=== PATIENT | female | born 1945 | race Caucasian/White ===

== ENCOUNTER 2016-08-24 19:42 | Observation (INO) | payer MEDICARE, MEDICAID ==
[2016-08-24] MEDS ORDERED: NS 0.9% 1000 ML* 1,000 ML IV ONE ×2 (22:38→23:32)
[2016-08-24] MEDS ORDERED: Ondansetron INJ* 2 MG/ML VIAL IV ONE (22:38)
[2016-08-24 22:42] LABS: Hematocrit 46 % (35-47); Hemoglobin 15.2 g/dl (12.0-16.0); Mean Corpuscular HGB Conc 33 g/dl (31-36); Mean Corpuscular Hemoglobin 30 pg (27-31); Mean Corpuscular Volume 92 fL (80-97); Mean Platelet Volume 8 um3 (7.4-10.4); Red Blood Count 5.04 10^6/ul (4.0-5.4); Red Cell Distribution Width 13 % (10.5-15)
[2016-08-24 22:57] LABS: ALT 29 U/L (7-52); AST 37 U/L (13-39); Albumin 3.6 g/dL (3.2-5.2); Alkaline Phosphatase 119 U/L (34-104); Anion Gap 8 mmol/L (2-11); BUN/Creatinine Ratio 16.9 (8-20); Blood Urea Nitrogen 13 mg/dL (6-24); C Reactive Protein < 1.00 mg/L (< 5.00); CO2 Carbon Dioxide 28 mmol/L (22-32); Calcium 9.8 mg/dL (8.6-10.3); Chloride 103 mmol/L (101-111); EGFR African American 94.5 (>60); EGFR Non-African American 73.5 (>60); Globulin 2.6 g/dL (2-4); Glucose 91 mg/dL (70-100); Lipase 37 U/L (11.0-82.0); Sodium 139 mmol/L (133-145); Total Protein 6.2 g/dL (6.4-8.9)
[2016-08-24] MEDS ORDERED: fentaNYL* 50 MCG/ML 2 ML VIAL (100 MCG VIAL) IV SLOW PU ONE (23:32)
[2016-08-25] MEDS ORDERED: fentaNYL* 50 MCG/ML 2 ML VIAL (100 MCG VIAL) IV SLOW PU ONE ×2 (00:08→03:50)
--- NOTE | 2016-08-25 00:12 | ED ---
Jacqueline Sandoval Michael, scribed for Jacquelin Tamayo MD on 08/24/16 at 2251 . GI/ HPI - HPI Summary HPI Summary: 71 y/o female was BIBA to the ED presenting with diarrhea three days ago that has progressively worsened. The pt reports bright red blood in her stool that was only present today. She also c/o vomiting and nausea. She had 4 vomiting episodes today, and there is no haematemesis. The pt has similar sx one year ago and was admitted to [facility] [place], but she cannot recall her dx. She denies chest pain , dysuria, and SOB. The PMHx is significant for colitis, HTN, ID, COPD, RA, and ELIZABETH. The FHx is significant for cancer, ID, and TIA. - History of Current Complaint Chief Complaint: EDNauseaVomitDiarrh Time Seen by Provider: 08/24/16 22:14 Stated Complaint: GENERAL ILLNESS Hx Obtained From: Patient, Medical Records Onset/Duration: Started Days Ago, Still Present Timing: Intermittent Severity: Moderate Current Severity: Moderate Pain Intensity: 0 Associated Signs and Symptoms: Positive: Nausea, Vomiting, Bright Red Blood w/ Stool, Diarrhea, Other: - SOB. Negative: Hematemesis, Dysuria, Chest Pain - Additional Pertinent History Primary Care Physician: [id number] - Allergy/Home Medications Allergies/Adverse Reactions: Allergies Allergy/AdvReac Type Severity Reaction Status Date / Time Cephalosporins Allergy Abdominal Verified 05/24/16 21:09 Pain PMH/Surg Hx/FS Hx/Imm Hx Endocrine/Hematology History: Reports: Hx Anticoagulant Therapy Denies: Hx Diabetes, Hx Systemic Lupus Erythematosus Cardiovascular History: Reports: Hx Angina, Hx Angioplasty, Hx Coronary Artery Disease, Hx Hypertension, Hx Myocardial Infarction, Other Cardiovascular Problems/Disorders - TAKES BABY ASPRIN Denies: Hx Congestive Heart Failure, Hx Hypercholesterolemia, Hx Valvular Heart Disease Respiratory History: Reports: Hx Chronic Obstructive Pulmonary Disease (COPD) Denies: Hx Asthma, Other Respiratory Problems/Disorders GI History: Reports: Hx Gall Bladder Disease - cholecystectomy, Hx Gastroesophageal Reflux Disease, Other GI Disorders - colitis History: Reports: Hx Kidney Infection, Hx Kidney Stones Denies: Hx Dialysis, Hx Renal Disease Musculoskeletal History: Reports: Hx Arthritis, Hx Rheumatoid Arthritis, Hx Back Problems, Hx Fibromyalgia, Hx Osteoporosis Sensory History: Reports: Hx Cataracts - surgery, Hx Contacts or Glasses - for reading Opthamlomology History: Reports: Hx Cataracts - surgery, Hx Contacts or Glasses - for reading Neurological History: Reports: Hx Migraine Psychiatric History: Reports: Hx Anxiety, Hx Depression - Surgical History Surgery Procedure, Year, and Place: Cardiac stent; right hand surgery; left foot surgery; neck surgery, cholecystectomy, hysterectomy Hx Anesthesia Reactions: No Infectious Disease History: Yes Infectious Disease History: Reports: Hx of Known/Suspected MRSA Denies: Traveled Outside the US in Last 30 Days - Family History Known Family History: Positive: Other - ID. cancer. TIA - Social History Occupation: Retired Lives: Alone Alcohol Use: None Substance Use Type: Reports: None Smoking Status (MU): Former Smoker Type: Cigarettes Amount Used/How Often: 1 PPD Length of Time of Smoking/Using Tobacco: 48 years Have You Smoked in the Last Year: No Review of Systems Negative: Fever Negative: Chest Pain Negative: Shortness Of Breath Positive: Vomiting, Diarrhea, Nausea Negative: dysuria All Other Systems Reviewed And Are Negative: Yes Physical Exam Triage Information Reviewed: Yes Vital Signs On Initial Exam: Initial Vitals Temp Pulse Resp BP Pulse Ox 98.3 F 97 20 146/109 97 08/24/16 19:48 08/24/16 19:48 08/24/16 19:48 08/24/16 19:48 08/24/16 19:48 Vital Signs Reviewed: Yes Appearance: Positive: Well-Appearing, No Pain Distress Skin: Positive: Warm, Skin Color Reflects Adequate Perfusion, Dry Eyes: Positive: EOMI, JULIANNE ENT: Positive: Pharynx normal, TMs normal Neck: Positive: Supple, Nontender Respiratory/Lung Sounds: Positive: Clear to Auscultation, Breath Sounds Present. Negative: Rales, Rhonchi, Wheezes Cardiovascular: Positive: RRR, Other - no gallop. Negative: Murmur, Rub Abdomen Description: Positive: Nontender, Soft, Other: - no rebound. Negative: Distended, Guarding Musculoskeletal: Positive: Strength/ROM Intact Neurological: Positive: Sensory/Motor Intact, Alert, Oriented to Person Place, Time, CN Intact II-III Psychiatric: Positive: Affect/Mood Appropriate Diagnostics - Vital Signs Vital Signs Temp Pulse Resp BP Pulse Ox 08/24/16 19:48 98.3 F 97 20 146/109 97 - Laboratory Lab Results: Lab Results 08/24/16 08/24/16 Range/Units 22:30 22:30 WBC 6.0 (3.5-10.8) 10^3/ul RBC 5.04 (4.0-5.4) 10^6/ul Hgb 15.2 (12.0-16.0) g/dl Hct 46 (35-47) % MCV 92 (80-97) fL MCH 30 (27-31) pg MCHC 33 (31-36) g/dl RDW 13 (10.5-15) % Plt Count 162 (150-450) 10^3/ul MPV 8 (7.4-10.4) um3 Neut % (Auto) 59.8 (38-83) % Lymph % (Auto) 22.7 L (25-47) % [place] % (Auto) 14.8 H (1-9) % Eos % (Auto) 2.1 (0-6) % Baso % (Auto) 0.6 (0-2) % Absolute Neuts (auto) 3.6 (1.5-7.7) 10^3/ul Absolute Lymphs (auto) 1.4 (1.0-4.8) 10^3/ul Absolute Monos (auto) 0.9 H (0-0.8) 10^3/ul Absolute Eos (auto) 0.1 (0-0.6) 10^3/ul Absolute Basos (auto) 0 (0-0.2) 10^3/ul Absolute Nucleated RBC 0.01 10^3/ul Nucleated RBC % 0.2 Sodium 139 (133-145) mmol/L Potassium 4.0 (3.5-5.0) mmol/L Chloride 103 (101-111) mmol/L Carbon Dioxide 28 (22-32) mmol/L Anion Gap 8 (2-11) mmol/L BUN 13 (6-24) mg/dL Creatinine 0.77 (0.51-0.95) mg/dL Est GFR ( Amer) 94.5 (>60) Est GFR (Non-Af Amer) 73.5 (>60) BUN/Creatinine Ratio 16.9 (8-20) Glucose 91 (70-100) mg/dL Calcium 9.8 (8.6-10.3) mg/dL Total Bilirubin 0.90 (0.2-1.0) mg/dL AST 37 (13-39) U/L ALT 29 (7-52) U/L Alkaline Phosphatase 119 H (34-104) U/L C-Reactive Protein < 1.00 (< 5.00) mg/L Total Protein 6.2 L (6.4-8.9) g/dL Albumin 3.6 (3.2-5.2) g/dL Globulin 2.6 (2-4) g/dL Albumin/Globulin Ratio 1.4 (1-3) Lipase 37 (11.0-82.0) U/L Result Diagrams: 08/24/16 22:30 08/24/16 22:30 Lab Statement: Any lab studies that have been ordered have been reviewed, and results considered in the medical decision making process. GIGU Course/Dx - Course Course Of Treatment: 71 y/o female c/o diarrhea that started 3 days ago. Today she had bright red blood in her stool. She also c/o vomiting with no haematemesis. She denies CP, SOB, and dysuria. scant blood on rectal exam. pt getting a second dose of pain meds and fluids now. Labs and vitals look good. After fluids and pain meds if able to ambulate and tolerate po's pt can go home. Pt to be signed out to Dr. Travis - Diagnoses Provider Diagnoses: Vomiting and diarrhea Discharge - Discharge Plan Condition: Stable Disposition: OTHER Discharge Disposition Comment: final disposition to be made by Dr. Travis The documentation as recorded by the Jacqueline erazo Michael accurately reflects the service I personally performed and the decisions made by me, Jacquelin Tamayo MD.
[2016-08-25] MEDS ORDERED: PROCHLORPERAZINE INJ 5 MG/ML 2 ML VIAL IV PRN ×2 (01:06→05:11)
--- NOTE | 2016-08-25 03:35 | HP ---
H&P (Free Text) History and Physical: PCP: Samina Fuller MD Date/Time of Evaluation: 08/25/2016 0415 CC: N/V HPI: Mrs Parks is a 71YO female reporting ~1week of increased fatigue and poor appetite worsening 3 days ago with the onset of diarrhea and culminating today with the onset of N/V which has not been adequately controlled after 2doses of IV anti-emetics. She admits to some subjective F/C, but no chest pain, SOB, palpitations, sweats, cough, congestion, B/U/F of urine, or other problems. She does admit to a single episode of bright red blood per rectum after arrived to ED, but none prior or since. There was no blood or coffee ground material in her emesis. Evaluation is essentially unremarkable. ECG is benign. Vitals and labs are stable. She is on chronic narcotics and was give IV fentanyl on the thought she could be experiencing withdrawal, but did not experience any improvement. PMedHx CAD/CO/stent PAOD COPD HTN HLD rheumatoid arthritis hypothyroidism GERD Allergies Cephalosporins Allergy (Verified 05/24/16 21:09) Abdominal Pain Ambulatory Orders Patient unaware of meds/dosages, will need reconciling via PCP/Rx in AM. PSurgHx OU cataract extractions C-spine surgery cardiac stent cholecystectomy bowel resection hysterectomy SocHx: former smoker, no alcohol or recreational drugs; live in independent apartment, has aide assistance daily; full code status FamHx: reviewed, non-contributory ROS: as above, otherwise reviewed and all were negative Constitutional: NAD, normally developed, overweight elderly white female vitals: Vital Signs Temp 36.8 C 08/24/16 19:48 Pulse 90 08/25/16 04:20 Resp 18 08/25/16 04:20 BP 145/72 08/25/16 04:20 Pulse Ox 98 08/25/16 04:20 Intake & Output 08/24/16 08/24/16 08/25/16 11:59 23:59 11:59 Intake Total 1000 1000 Balance 1000 1000 Weight 145 lb Intake: IV Fluids 1000 1000 HEENM: atraumatic; sclera/conjunctiva: non-icteric/clear; hearing: mildly decreased; oropharynx: clear, mucosa moist Neck: soft tissue: non-tender; thyroid: normal Pulmonary: clear to auscultation bilaterally, good aeration, no accessory muscle use CV: RR/RR, normal S1S2, no carotid bruit, no jugular venous distention, 1+ B DP/ PT, trace to 1+ B ankle edema Abdominal: soft, non-distended, non-tender, no rebound/guarding/rigidity, normoactive bowel sounds, no hepatosplenomegaly or masses, no costovertebral angle tenderness Musculoskeletal: general: grossly intact Integumental: normal appearance and texture Psychiatric orientation: AA&O to PPS affect: calm mood: good eye contact: fair content: mostly reliable responses: timely insight: fair to good Testing: Lab Results 08/24/16 08/24/16 Range/Units 22:30 22:30 WBC 6.0 (3.5-10.8) 10^3/ul RBC 5.04 (4.0-5.4) 10^6/ul Hgb 15.2 (12.0-16.0) g/dl Hct 46 (35-47) % MCV 92 (80-97) fL MCH 30 (27-31) pg MCHC 33 (31-36) g/dl RDW 13 (10.5-15) % Plt Count 162 (150-450) 10^3/ul MPV 8 (7.4-10.4) um3 Neut % (Auto) 59.8 (38-83) % Lymph % (Auto) 22.7 L (25-47) % [place] % (Auto) 14.8 H (1-9) % Eos % (Auto) 2.1 (0-6) % Baso % (Auto) 0.6 (0-2) % Absolute Neuts (auto) 3.6 (1.5-7.7) 10^3/ul Absolute Lymphs (auto) 1.4 (1.0-4.8) 10^3/ul Absolute Monos (auto) 0.9 H (0-0.8) 10^3/ul Absolute Eos (auto) 0.1 (0-0.6) 10^3/ul Absolute Basos (auto) 0 (0-0.2) 10^3/ul Absolute Nucleated RBC 0.01 10^3/ul Nucleated RBC % 0.2 Sodium 139 (133-145) mmol/L Potassium 4.0 (3.5-5.0) mmol/L Chloride 103 (101-111) mmol/L Carbon Dioxide 28 (22-32) mmol/L Anion Gap 8 (2-11) mmol/L BUN 13 (6-24) mg/dL Creatinine 0.77 (0.51-0.95) mg/dL Est GFR ( Amer) 94.5 (>60) Est GFR (Non-Af Amer) 73.5 (>60) BUN/Creatinine Ratio 16.9 (8-20) Glucose 91 (70-100) mg/dL Calcium 9.8 (8.6-10.3) mg/dL Total Bilirubin 0.90 (0.2-1.0) mg/dL AST 37 (13-39) U/L ALT 29 (7-52) U/L Alkaline Phosphatase 119 H (34-104) U/L Troponin I 0.02 (<0.04) ng/mL C-Reactive Protein < 1.00 (< 5.00) mg/L Total Protein 6.2 L (6.4-8.9) g/dL Albumin 3.6 (3.2-5.2) g/dL Globulin 2.6 (2-4) g/dL Albumin/Globulin Ratio 1.4 (1-3) Lipase 37 (11.0-82.0) U/L ECG, personally reviewed: NSR rate 88, inferior Q-waves, no ischemia Impression: 71F presenting with intractable N/V/D DIAGNOSIS & PLAN Primary intractable N/V/D 2nd suspect acute viral gastroenteritis : IVFs : anti-emetics : PT evaluation : check UA : supportive care Secondary CAD/CO/stent : 81mg aspirin daily PAOD/HLD : heart healthy diet COPD : albuterol nebs : mometasone/formoterol : tiotropium : incentive spirometry HTN : continue outpatient regimen once reconciled rheumatoid arthritis : pain control hypothyroidism : continue replacement therapy once reconciled GERD : omeprazole Admission Rational: observation DVTp: heparin SQ & SCDs Code Status: full HCP: daughterMackenzie
[2016-08-25 04:36] LABS: Troponin I 0.02 ng/mL (<0.04)
[2016-08-25] MEDS ORDERED: Ondansetron INJ* 2 MG/ML VIAL IV PRN (05:11)
[2016-08-25] MEDS ORDERED: Acetaminophen TAB* 325 MG PO PRN (05:11)
[2016-08-25] MEDS ORDERED: Albuterol 2.5 MG/3 ML NEB.SOL* (0.083%) INH PRN (05:11)
[2016-08-25] MEDS ORDERED: Melatonin (NF) 3 MG TAB PO PRN (05:11)
[2016-08-25] MEDS ORDERED: NS 0.9% 1000 ML* 1,000 ML IV SCH (05:15)
[2016-08-25 05:59] LABS: TSH (Thyroid Stimulating Horm) 0.41 mcIU/mL (0.34-5.60)
[2016-08-25] MEDS ORDERED: Omeprazole CAP* 20 MG PO SCH (06:00)
--- NOTE | 2016-08-25 06:40 | ED ---
I, Jaun Murray, louisaibed for Teodoro Travis MD on 08/25/16 at 0105 . Progress - Progress Note Progress Note: Cinthya Parks is a 71 yo female presenting to [facility] with decreased appetite, nasuea, and vomiting. Upon evaluation, Pt is unable to tolerate fluids. Re-Evaluation - Re-Evaluation First Eval Re-Evaluation Time: 01:04 Change: Worse Comment: Pt is unable to tolerate fluids Course/Dx - Course Course Of Treatment: 71 y/o female c/o diarrhea that started 3 days ago. Today she had bright red blood in her stool. She also c/o vomiting with no haematemesis. She denies CP, SOB, and dysuria. scant blood on rectal exam. pt getting a second dose of pain meds and fluids now. Labs and vitals look good. After fluids and pain meds if able to ambulate and tolerate po's pt can go home. Pt to be signed out to Dr. Travis - Diagnoses Provider Diagnoses: Vomiting and diarrhea - Provider Notifications Discussed Care Of Patient With: 0103 - Dr. Price (hospitalist) - Discussed care of Pt. Recommends compazine administration, and then further evaluation. 0330 - Dr. Price (hospitalist) - discussed Pt condition, will admit Pt. Instructed by Provider To: Admit As Inpatient The documentation as recorded by the louisaibarlin luna Timothy accurately reflects the service I personally performed and the decisions made by me, Teodoro Travis MD.
[2016-08-25 08:24] LABS: Hematocrit 42 % (35-47); Mean Corpuscular HGB Conc 33 g/dl (31-36); Mean Corpuscular Hemoglobin 31 pg (27-31); Mean Corpuscular Volume 93 fL (80-97); Mean Platelet Volume 8 um3 (7.4-10.4); Red Blood Count 4.55 10^6/ul (4.0-5.4); Red Cell Distribution Width 13 % (10.5-15); White Blood Count 4.4 10^3/ul (3.5-10.8)
[2016-08-25 08:40] LABS: BUN/Creatinine Ratio 15.5 (8-20); Calcium 8.4 mg/dL (8.6-10.3); EGFR African American 103.8 (>60); EGFR Non-African American 80.7 (>60); Potassium 3.5 mmol/L (3.5-5.0)
[2016-08-25] MEDS ORDERED: Tiotropium CAP.INH* CAP.INH/18 MCG (USE ORDER SET !) INH SCH (09:00)
[2016-08-25] MEDS ORDERED: Spiriva Inhaler DEVICE* 1 EACH DEVICE INH ONE (09:00)
[2016-08-25] MEDS ORDERED: Mometasone/Formoter 200/5 MDI INH SCH (09:00)
[2016-08-25] MEDS: oxyCODONE TAB* 5 MG TAB PO PRN ×2 (09:38→14:28)
[2016-08-25 10:25] LABS: Urine Bacteria 1+ (Absent); Urine Bilirubin Negative (Negative); Urine Glucose Negative (Negative); Urine Nitrite Positive (Negative)
[2016-08-25 12:02] VITALS: BP 143/71
--- NOTE | 2016-08-25 23:26 | DS ---
DISCHARGE SUMMARY: DATE OF ADMISSION: 08/25/16 DATE OF DISCHARGE: 08/25/16 PRIMARY CARE PROVIDER: Dr. Fuller. PRIMARY DIAGNOSIS: Gastroenteritis. SECONDARY DIAGNOSES: 1. Coronary artery disease. 2. Chronic obstructive pulmonary disease. 3. Hypertension. 4. Hyperlipidemia. 5. Rheumatoid arthritis. 6. Hypothyroidism. 7. Gastroesophageal reflux disease. MEDICATIONS ON DISCHARGE: Unchanged from that on admission. 1. Magnesium oxide 800 mg at bedtime. 2. Synthroid 75 mcg daily. 3. Neurontin 300 mg twice daily. 4. Folic acid 1 tablet daily. 5. Bupropion XL 300 mg daily. 6. Lipitor 20 mg daily. 7. Aspirin 81 mg daily. 8. Acetaminophen 650 mg every 4 hours as needed for pain or fever. 9. Actemra 162 mcg twice monthly. 10. Silvadene 1 application daily as needed. 11. Potassium chloride 20 mEq daily. 12. Prilosec 20 mg daily. 13. Metoprolol tartrate 25 mg twice daily. 14. Oxycodone 5 mg every 4 to 6 hours as needed for pain. 15. Fentanyl patch 37.5 mcg as needed. 16. Prednisone 5 mg daily. HISTORY OF PRESENT ILLNESS AND HOSPITAL COURSE: A 71-year-old female who presented to the hospital with increasing fatigue associated with increasing diarrhea as well as nausea and vomiting, thought to represent gastroenteritis. She was admitted to the hospital and received IV hydration as well as antiemetics with good effect. The following day, her diarrhea had completely resolved and she had no longer felt nauseous nor had any additional vomiting. She tolerated her breakfast and lunch without distress. She felt comfortable returning home on the day of discharge. There were no complications during the patient's hospital stay. At followup, please; 1. Evaluate for continued resolution of symptoms. 2. No other specific labs or vitals that need followup. Reasons to return to the hospital including but not limited to worsening of symptoms, chest pain, shortness of breath, nausea, vomiting, lightheadedness, loss of consciousness, near loss of consciousness, fever, chills, night sweats, diarrhea, inability to obtain or tolerate her medications were discussed with the patient. She acknowledged understanding. TIME SPENT: Greater than 30 minutes was spent on discharge of this patient with greater than half the time spent [id number] with the patient. CC: Dr. Fuller* [id number]/[facility] #: [id number] PHUC
[2016-08-26] MEDS ORDERED: Heparin VIAL(*) 5000 UNITS/ML VIAL (FIVE THOUSAND) SUBCUT SCH (06:00)
== END 2016-08-25 15:13 | disposition home or self-care (01) ==
LOC: ED 19:42 → MEDTELE 08-25 05:09
PROVIDERS: ADMIT Hospitalist; ATTEND Internal Medicine
DX: K52.9 Noninfective gastroenteritis and colitis, unspecified (principal); I25.10 Atherosclerotic heart disease of native coronary artery without angina pectoris; J44.9 Chronic obstructive pulmonary disease, unspecified; I10 Essential (primary) hypertension; E78.5 Hyperlipidemia, unspecified; M06.9 Rheumatoid arthritis, unspecified; E03.9 Hypothyroidism, unspecified; K21.9 Gastro-esophageal reflux disease without esophagitis; Z79.899 Other long term (current) drug therapy; I25.2 Old myocardial infarction; Z95.5 Presence of coronary angioplasty implant and graft; Z88.1 Allergy status to other antibiotic agents; Z87.891 Personal history of nicotine dependence
CPT/HCPCS: 36415; 80048; 80053; 81003; 81015; 83690; 84443; 84484; 85025; 85027; 86140; 87077; 87086; 87186; 93005; 94640; 96361; 96374; 96375; 96376; 99283; A9270-GY; G8981-GP-CM; G8982-GP-CJ; G8983-GP-CM; J0780; J2405; J3010

== ENCOUNTER 2017-02-05 12:29 | Day surgery (SDC) | payer MEDICARE, MEDICAID ==
[~2017-02-05 12:29] MED LIST: Buffered Lidocaine 0.9% SYRIN* 5 ML/SYR SYRINGE INTRADERM ONE; Famotidine IV* 10 MG/ML 2 ML (20 mg) IV ONE; Morphine INJ* 2 MG/ML 1 ML SYRINGE IV PRN; PROCHLORPERAZINE INJ 5 MG/ML 2 ML VIAL IV PRN; oxyCODONE/Acetamin 5/325 MG* TAB PO PRN
[2017-02-05] MEDS ORDERED: Buffered Lidocaine 0.9% SYRIN* 5 ML/SYR SYRINGE ONE (12:37)
[2017-02-05] MEDS ORDERED: Famotidine IV* 10 MG/ML 2 ML (20 mg) ONE (12:37)
[2017-02-05] MEDS ORDERED: fentaNYL* 50 MCG/ML 2 ML VIAL (100 MCG VIAL) ONE ×2 (12:40→14:45)
[2017-02-05] MEDS ORDERED: KETAMINE HCL* 50 MG/ML 10 ML VIAL ONE (12:40)
[2017-02-05] MEDS ORDERED: Midazolam* 1 MG/ML 5 ML VIAL (5 MG) ONE (12:41)
[2017-02-05] MEDS ORDERED: Bupivacaine 0.5% W/EPI SDV* 10 ML VIAL INJ ONE (13:34)
[2017-02-05] MEDS ORDERED: Lidocaine 1% INJ* 10 MG/ML 30 ML SDV ONE (13:34)
[2017-02-05] MEDS ORDERED: Metoprolol Tartrate IV* 1 MG/ML 5 ML VIAL ONE (13:36)
[2017-02-05] MEDS ORDERED: Propofol* 10 MG/ML 20 ML BTL IV PUSH ONE (13:54)
[2017-02-05] MEDS ORDERED: Lidocaine 2% PF * 5 ML VIAL ONE (13:54)
--- NOTE | 2017-02-05 14:04 | SURGPN ---
Brief Operative Note - Surgery Procedures: Procedures EXCISION OF ASCENDING COLON, ENDO, DIAGN (05/18/15) FLUOROSCOPY OF MULT COR ART USING L OSM CONTRAST (12/11/15) MEASURE OF CARDIAC SAMPL & PRESSURE, L HEART, PERC APPROACH (12/11/15) MEASUREMENT OF ARTERIAL FLOW, CORONARY, PERC APPROACH (12/11/15) 02/05/17 Op Note Pre-op dx: non-healing wound of the left buttock Post-op dx: same Procedure: excision of left buttock wound surgeon: Noel Asst: none Anesth: local--MAC EBL: 5cc SCDs on during surgery abx: not indicated Complications: none Pt. tolerated procedure well and was transferred to in a stable condition. CLFoster
[2017-02-05] MEDS ORDERED: oxyCODONE/Acetamin 5/325 MG* TAB ONE (14:46)
[2017-02-05] MEDS: fentaNYL* 50 MCG/ML 2 ML VIAL (100 MCG VIAL) IV PRN ×2 (14:49→14:59)
[2017-02-05 15:13] VITALS: BP 172/75
--- NOTE | 2017-02-06 11:20 | OP ---
CC: Fernando Fuller DO; Maxx Hughes * OPERATIVE REPORT: DATE OF PROCEDURE: 02/05/17 - [facility] DATE OF : 41 SURGEON: Mel Cohen MD PLASTIC EYE TECHNICIAN: None. ANESTHESIOLOGIST: Abdiaziz Posadas MD ANESTHESIA: MAC PRE-OP DIAGNOSIS: Open nonhealing wound of the left buttock. POST-OP DIAGNOSIS: Open nonhealing wound of the left buttock. PROCEDURE: Excision of nonhealing wound of the left buttock. INDICATIONS: The patient is a 71-year-old woman with a history of a nonhealing wound of the left buttock for many months. Examination at the wound center demonstrated that the wound had epibolized and was unlikely to heal without excision. DESCRIPTION OF PROCEDURE: She was therefore prepared for surgery, brought to the operating room. She was placed on the OR table in supine position and given IV sedation. She was positioned on the side with the left side up. The left buttock was prepped and draped in usual sterile fashion. After infiltrating with local anesthetic, an elliptical incision encompassing the buttock wound and some irregular scar tissue medially was done and subcutaneous tissues divided with electrocautery to excise this area. The ellipse of skin was handed off and subcutaneous tissue was reapproximated with 3-0 Polysorb and then the skin was approximated with 3-0 Surgipro in a continuous horizontal mattress stitch. A dry sterile dressing was applied. All sponge and instrument counts were correct, the patient tolerated the procedure well and was transferred to Recovery in stable condition. [id number]/[facility] #: [id number] MTDD
== END 2017-02-05 15:15 | disposition home or self-care (01) ==
LOC: OR 12:29
PROVIDERS: ATTEND Surgery
DX: S31.829A Unspecified open wound of left buttock, initial encounter (principal); X58.XXXA Exposure to other specified factors, initial encounter; Y92.9 Unspecified place or not applicable; Z87.891 Personal history of nicotine dependence; Z79.82 Long term (current) use of aspirin; Z16.20 Resistance to unspecified antibiotic; I25.10 Atherosclerotic heart disease of native coronary artery without angina pectoris; Z95.5 Presence of coronary angioplasty implant and graft; Z79.52 Long term (current) use of systemic steroids; Z79.891 Long term (current) use of opiate analgesic; L57.0 Actinic keratosis; Z88.1 Allergy status to other antibiotic agents; I25.2 Old myocardial infarction; M06.9 Rheumatoid arthritis, unspecified
CPT/HCPCS: 88305; A9270-GY; J2001; J2250; J2704; J3010

== ENCOUNTER 2017-02-08 10:35 | Emergency (ER) | payer MEDICARE, MEDICAID ==
--- NOTE | 2017-02-08 12:24 | ED ---
Skin Complaint - HPI Summary HPI Summary: Patient had a chronic wound on her buttock excised with Dr. Cohen three days ago and the running stitch has come undone. She has kept the wound clean, dry and dressed with gauze. She denies fever, chills, drainage or increased redness or pain. - History of Current Complaint Chief Complaint: EDLacSutureRecheck Time Seen by Provider: 02/08/17 10:42 Stated Complaint: SUTURES CAME OUT Hx Obtained From: Patient, Family/Acting Section Chief Onset/Duration: Started Hours Ago Skin Exposure Onset/Duration: Hours Ago Timing: Constant Onset Severity: Moderate Current Severity: Moderate Pain Intensity: 5 Skin Location: Other: - left buttock Character: Painful - mild chronic Aggravating Symptom(s): Touch Alleviating Symptom(s): Nothing Associated Signs & Symptoms: Tenderness Related History: Other: - surgical excision - Additional Pertinent History Primary Care Physician: [id number] - Allergy/Home Medications Allergies/Adverse Reactions: Allergies Allergy/AdvReac Type Severity Reaction Status Date / Time Cephalosporins Allergy Abdominal Verified 02/05/17 13:03 Pain PMH/Surg Hx/FS Hx/Imm Hx Endocrine/Hematology History: Reports: Hx Anticoagulant Therapy Denies: Hx Diabetes, Hx Systemic Lupus Erythematosus Cardiovascular History: Reports: Hx Angina, Hx Angioplasty, Hx Coronary Artery Disease - STENT, Hx Hypertension - ON MEDICATION FOR, Hx Myocardial Infarction, Other Cardiovascular Problems/Disorders - DR. DUNLAP Denies: Hx Congestive Heart Failure, Hx Hypercholesterolemia, Hx Pacemaker/ ICD, Hx Valvular Heart Disease Respiratory History: Reports: Hx Chronic Obstructive Pulmonary Disease (COPD), Other Respiratory Problems/Disorders - OCCASIONALLY DIFFICULTY BREATHING- PRN PROVENTIL- STATES HELPS Denies: Hx Asthma GI History: Reports: Hx Gall Bladder Disease - cholecystectomy, Hx Gastroesophageal Reflux Disease - ON MEDICATION FOR, Other GI Disorders - colitis History: Reports: Hx Kidney Infection, Hx Kidney Stones Denies: Hx Dialysis, Hx Renal Disease Musculoskeletal History: Reports: Hx Arthritis, Hx Rheumatoid Arthritis, Hx Back Problems, Hx Fibromyalgia, Hx Osteoporosis Sensory History: Reports: Hx Cataracts - surgery, Hx Contacts or Glasses - for reading Denies: Hx Hearing Aid Opthamlomology History: Reports: Hx Cataracts - surgery, Hx Contacts or Glasses - for reading Neurological History: Reports: Hx Migraine - RARELY Psychiatric History: Reports: Hx Anxiety - ON MEDICATION FOR, Hx Depression - ON MEDICATION FOR - Surgical History Surgery Procedure, Year, and Place: Cardiac stent; right hand surgery; left foot surgery; neck surgery, cholecystectomy, hysterectomy Hx Anesthesia Reactions: No Infectious Disease History: No Infectious Disease History: Reports: Hx of Known/Suspected MRSA Denies: Traveled Outside the [place] in Last 30 Days - Family History Known Family History: Positive: Other - [place]. cancer. TIA - Social History Occupation: Retired Lives: Alone Alcohol Use: None Substance Use Type: Reports: None Smoking Status (MU): Former Smoker Type: Cigarettes Amount Used/How Often: 1 PPD X 45 YEARS Length of Time of Smoking/Using Tobacco: 48 years Have You Smoked in the Last Year: No Review of Systems Negative: Fever, Chills Positive: Other - healing 3x3cm wound left buttock with untied suture All Other Systems Reviewed And Are Negative: Yes Physical Exam Triage Information Reviewed: Yes Vital Signs On Initial Exam: Initial Vitals Temp Pulse Resp BP Pulse Ox 98.3 F 73 16 148/56 97 02/08/17 10:37 02/08/17 10:37 02/08/17 10:37 02/08/17 10:37 02/08/17 10:37 Vital Signs Reviewed: Yes Appearance: Positive: Well-Appearing, No Pain Distress, Well-Nourished Skin: Positive: Warm, Skin Color Reflects Adequate Perfusion, Dry, Tender - 3x3cm wound left buttock with untied suture, mildly maloderous, Soft Head/Face: Positive: Normal Head/Face Inspection Eyes: Positive: EOMI, JULIANNE, Conjunctiva Clear ENT: Positive: Hearing grossly normal Respiratory/Lung Sounds: Positive: Breath Sounds Present Cardiovascular: Positive: RRR Abdomen Description: Positive: Nontender Musculoskeletal: Negative: Edema Left, Edema Right Neurological: Positive: Sensory/Motor Intact, Alert, Oriented to Person Place, Time, [place] Bundle Intact Distally, Unable to Assess Gait Psychiatric: Positive: Affect/Mood Appropriate AVPU Assessment: Alert - [place] Coma Scale Coma Scale Total: 15 Procedures - Laceration/Wound Repair 1 Length, Depth and Shape: 3 cm long, 2 cm wide, 2 cm deep Diagnostics - Vital Signs Vital Signs Temp Pulse Resp BP Pulse Ox 02/08/17 10:54 98.3 F 73 16 148/56 97 02/08/17 10:37 98.3 F 73 16 148/56 97 - Laboratory Lab Statement: Any lab studies that have been ordered have been reviewed, and results considered in the medical decision making process. Course/Dx - Course Course Of Treatment: Patient's case was discussed with Dr. Morton and he evaluated the patient in the ED. He recommended leaving the wound open with triple antibiotic and gauze packing with close follow-up in two days with Dr. Cohen at the wound clinic. This appointment is scheduled and patient will comply. - Differential Diagnoses - Skin Complaint Differential Diagnoses: Abscess, Allergic Reaction, Cellulitis, Contact Dermatitis, Local Allergic Reaction, MRSA, Urticaria - Diagnoses Provider Diagnoses: Wound dehiscence, external operation - Physician Notifications Discussed Care Of Patient With: Dr. Cohen and Dr. Morton, general surgery Instructed by Provider To: Have Pt Call For Appt. Discharge - Discharge Plan Condition: Stable Disposition: HOME Patient Education Materials: Acute Wound Care (ED) Referrals: Fernando Fuller DO [Primary Care Provider] - Mel Cohen MD [Medical Doctor] - Additional Instructions: Please keep your wound clean and dry. Perform daily dressing changes with triple antibiotic packed in the wound with clean gauze in and over the wound. Follow-up with Dr. Cohen in two days as scheduled. Return to the emergency department if symptoms worsen.
[2017-02-08 13:33] VITALS: BP 163/80
== END 2017-02-08 13:33 | disposition home or self-care (01) ==
LOC: ED 10:35
DX: T81.30XA Disruption of wound, unspecified, initial encounter (principal); S31.809A Unspecified open wound of unspecified buttock, initial encounter; X58.XXXA Exposure to other specified factors, initial encounter; Y93.9 Activity, unspecified; Y92.9 Unspecified place or not applicable; Z87.891 Personal history of nicotine dependence
CPT/HCPCS: 99282

== ENCOUNTER 2017-02-08 19:44 | Observation (INO) | payer MEDICARE, MEDICAID ==
--- NOTE | 2017-02-08 20:32 | ED ---
Skin Complaint - HPI Summary HPI Summary: Patient had a chronic wound on her buttock excised with Dr. Cohen three days ago. She has kept the wound clean, dry and dressed with gauze. Came into ED earlier today with the same complaints and that the stitch had fallen out. She denies fever, chills, or increased redness or pain. It is painful when moving or on palpation. Patient also sates the drainage has seemed to increase and it has become difficulty for her family to change it so frequently. She has been soaking through dressings multiple times daily. No other complaints at this time. PMHx significant for rheumatoid arthritis. Is taking Aspirin 81mg. - History of Current Complaint Chief Complaint: EDGeneral Time Seen by Provider: 02/08/17 20:02 Stated Complaint: WOUND ON BUTTOCK Hx Obtained From: Patient, Family/Dance Director - daughter Onset/Duration: Started Days Ago - 3 Skin Exposure Onset/Duration: Days Ago - 3 Timing: Constant Onset Severity: Mild Current Severity: Moderate Pain Intensity: 5 Pain Scale Used: 0-10 Numeric Skin Location: Other: - left buttock Character: Redness, Painful Aggravating Symptom(s): Touch Associated Signs & Symptoms: Drainage Related History: Other: - surgical excision [address] Cohen - Additional Pertinent History Primary Care Physician: [id number] - Allergy/Home Medications Allergies/Adverse Reactions: Allergies Allergy/AdvReac Type Severity Reaction Status Date / Time Cephalosporins Allergy Abdominal Verified 02/05/17 13:03 Pain Home Medications: Home Medications Docusate Sodium [Colace] 100 mg PO BID PRN 02/08/17 [History Confirmed 02/08/17] Ferrous Gluconate TAB* [Fergon TAB*] 325 mg PO EVERY OTHER DAY 02/08/17 [ History Confirmed 02/08/17] Prolia(NF) 60 mg SUBCUT SEE INSTRUCTIONS 02/08/17 [History Confirmed 02/08/17] Ramipril [Altace] 5 mg PO DAILY 02/08/17 [History Confirmed 02/08/17] fentaNYL PATCH 25 MCG/HR* [Duragesic PATCH 25 Mcg/Hr*] 25 mcg TRANSDERM Q72HR [History Confirmed 02/08/17] PMH/Surg Hx/FS Hx/Imm Hx Endocrine/Hematology History: Reports: Hx Anticoagulant Therapy Denies: Hx Diabetes, Hx Systemic Lupus Erythematosus Cardiovascular History: Reports: Hx Angina, Hx Angioplasty, Hx Coronary Artery Disease - STENT, Hx Hypertension - ON MEDICATION FOR, Hx Myocardial Infarction, Other Cardiovascular Problems/Disorders - DR. DUNLAP Denies: Hx Congestive Heart Failure, Hx Hypercholesterolemia, Hx Pacemaker/ ICD, Hx Valvular Heart Disease Respiratory History: Reports: Hx Chronic Obstructive Pulmonary Disease (COPD), Other Respiratory Problems/Disorders - OCCASIONALLY DIFFICULTY BREATHING- PRN PROVENTIL- STATES HELPS Denies: Hx Asthma GI History: Reports: Hx Gall Bladder Disease - cholecystectomy, Hx Gastroesophageal Reflux Disease - ON MEDICATION FOR, Other GI Disorders - colitis History: Reports: Hx Kidney Infection, Hx Kidney Stones Denies: Hx Dialysis, Hx Renal Disease Musculoskeletal History: Reports: Hx Arthritis, Hx Rheumatoid Arthritis, Hx Back Problems, Hx Fibromyalgia, Hx Osteoporosis Sensory History: Reports: Hx Cataracts - surgery, Hx Contacts or Glasses - for reading Denies: Hx Hearing Aid Opthamlomology History: Reports: Hx Cataracts - surgery, Hx Contacts or Glasses - for reading Neurological History: Reports: Hx Migraine - RARELY Psychiatric History: Reports: Hx Anxiety - ON MEDICATION FOR, Hx Depression - ON MEDICATION FOR - Surgical History Surgery Procedure, Year, and Place: Cardiac stent; right hand surgery; left foot surgery; neck surgery, cholecystectomy, hysterectomy Hx Anesthesia Reactions: No Infectious Disease History: No Infectious Disease History: Reports: Hx of Known/Suspected MRSA Denies: Traveled Outside the [place] in Last 30 Days - Family History Known Family History: Positive: None, Other - [place]. cancer. TIA - Social History Alcohol Use: None Substance Use Type: Reports: None Smoking Status (MU): Former Smoker Type: Cigarettes Amount Used/How Often: 1 PPD X 45 YEARS Length of Time of Smoking/Using Tobacco: 48 years Have You Smoked in the Last Year: No Review of Systems Constitutional: Negative Cardiovascular: Negative Respiratory: Negative Positive: Arthralgia - chronic due to rheumatoid Positive: Other - wound All Other Systems Reviewed And Are Negative: Yes Physical Exam Triage Information Reviewed: Yes Vital Signs On Initial Exam: Initial Vitals Temp Pulse Resp BP Pulse Ox 97.7 F 78 16 166/68 96 02/08/17 19:52 02/08/17 19:52 02/08/17 19:52 02/08/17 19:52 02/08/17 19:52 BP elevated and compared to previous visits, similar range. Vital Signs Reviewed: Yes Appearance: Positive: Well-Appearing, Pain Distress - mild with movement alos due to chronic rheumatoid Skin: Positive: Warm, Skin Color Reflects Adequate Perfusion, Dry, Tender, Weeping Skin/Lesions - 3x3cm wound left buttock with drainage, covered with dressing that was mildly soaked with typical drainage, mildly maloderous, Soft Head/Face: Positive: Normal Head/Face Inspection Neck: Positive: Supple, Nontender Respiratory/Lung Sounds: Positive: Clear to Auscultation, Breath Sounds Present. Negative: Rales, Rhonchi, Wheezes Cardiovascular: Positive: Normal, RRR, Pulses are Symmetrical in both Upper and Lower Extremities. Negative: Murmur, Rub Abdomen Description: Positive: Nontender, Soft Bowel Sounds: Positive: Present Musculoskeletal: Positive: Normal, Strength/ROM Intact - per patient's norm Neurological: Positive: Normal, Sensory/Motor Intact, Alert, Oriented to Person Place, Time Psychiatric: Positive: Normal AVPU Assessment: Alert Diagnostics - Vital Signs Vital Signs Temp Pulse Resp BP Pulse Ox 02/08/17 19:53 97.7 F 78 18 166/68 97 02/08/17 19:52 97.7 F 78 16 166/68 96 - Laboratory Lab Statement: Any lab studies that have been ordered have been reviewed, and results considered in the medical decision making process. Course/Dx - Course Course Of Treatment: Patient's case was discussed with Dr. Morton at 8:35pm as he evaluated patient earlier today in the ED when he recommended leaving the wound open with triple antibiotic and gauze packing with close follow-up in two days with Dr. Cohen at the wound clinic. Told patient returned and stated he would not do anything differently and to talk to hospitalist for possible admission for social reasons. Spoke with Dr He at 8:37 who agrees to evaulate the patient and admit due to being unable to take care of herself at home, patient is aware this may not be paid for. Patient and family agree with plan. - Differential Diagnoses - Skin Complaint Differential Diagnoses: Abscess, Cellulitis, MRSA, Other - Diagnoses Provider Diagnoses: Wound dehiscence, external operation - Physician Notifications Discussed Care Of Patient With: Dr Leodan Mae Time Discussed With Above Provider: 20:35 Instructed by Provider To: Admit As Observation Discharge - Discharge Plan Condition: Stable Disposition: ADMITTED TO [facility]
[2017-02-08] MEDS ORDERED: predniSONE TAB* 10 MG PO PRN (22:50)
[2017-02-08] MEDS ORDERED: Acetaminophen TAB* 325 MG PO PRN (22:50)
[2017-02-08] MEDS ORDERED: Docusate CAP* 100 MG PO PRN (22:50)
[2017-02-08] MEDS ORDERED: Morphine INJ* 2 MG/ML 1 ML SYRINGE IV PRN (23:17)
[2017-02-09] MEDS ORDERED: ceFAZolin VIAL(*) 1 GM in NS 0.9% 50 ML* 50 ML IVPB SCH ×2
[2017-02-09] MEDS: oxyCODONE TAB* 5 MG TAB PO PRN ×4 (01:42→15:17)
[2017-02-09] MEDS: ceFAZolin VIAL(*) 1 GM in NS 0.9% 50 ML* 50 ML IVPB SCH ×2 (02:08→10:31)
[2017-02-09] MEDS: fentaNYL PATCH 25 MCG/HR TRANSDERM SCH ×2 (02:55→10:42)
[2017-02-09] MEDS: Heparin VIAL(*) 5000 UNITS/ML VIAL (FIVE THOUSAND) SUBCUT SCH ×2 (05:57→15:22)
[2017-02-09] MEDS ORDERED: Levothyroxine TAB* 75 MCG TAB PO SCH (06:00)
--- NOTE | 2017-02-09 06:59 | HP ---
CC: Dr. Mel Cohen; Dr. Fernando Fuller; Dr. Maxx Hughes * HISTORY AND PHYSICAL: DATE OF ADMISSION: 02/08/17 CHIEF COMPLAINT: "My wound is bleeding." HISTORY OF PRESENT ILLNESS: The patient is a 71-year-old woman who underwent surgery this past Wednesday in which she had an open nonhealing wound of the left buttock excised. The patient said while she was home, she accidentally took up the sutures and was bleeding. She came in today to the ER, they packed the wound, did not reclose it again because of concerns that it could be infected. The patient went home and bled again, so she came back to the ER. The patient is being admitted for under observation with followup in the a.m. by Surgery. The patient will need conservatively more home care or need to go to short-term rehab, as she has significant rheumatoid arthritis and is wheelchair bound. PAST MEDICAL HISTORY: The patient has a past medical history as noted for rheumatoid arthritis; coronary artery disease, with a stent; COPD; hypertension ; hyperlipidemia; hypothyroidism; GERD. PAST SURGICAL HISTORY: Significant for bilateral cataract extractions; C-spine surgery; cardiac stent; cholecystectomy; bowel resection; hysterectomy; aforementioned wound excision. CURRENT MEDICATIONS: Are as follows: 1. Ferrous gluconate 325 mg every other day. 2. Ramipril 5 mg daily. 3. Prolia 60 mg as directed subcu. 4. Docusate 100 mg twice a day as needed. 5. Aspirin 81 mg daily. 6. Prednisone 5 mg daily as needed. 7. Oxycodone 5 mg every 4 to 6 hours as needed. 8. Actemra 162 mg subcu weekly. 9. Levothyroxine 75 mcg p.o. daily. 10. Gabapentin 300 mg twice daily. 11. Folic acid 1 mg in the morning. 12. Bupropion XL 300 in the morning. 13. Atorvastatin 80 mg daily. 14. Omeprazole 40 mg in the morning. 15. Metoprolol tartrate 25 mg twice daily. 16. Fentanyl patch 25 mcg q.72 hours. 17. Tylenol 500 mg twice a day as needed. 18. Potassium chloride 20 mEq daily. 19. Magnesium oxide 800 mg at bedtime. 20. Silvadene topically daily as needed. 21. Albuterol sulfate 2 puffs twice a day as needed. ALLERGIES: She has an allergy to CEPHALOSPORINS, which is apparently abdominal pain. FAMILY HISTORY: Reviewed and noncontributory. SOCIAL HISTORY: Ex-tobacco, no alcohol or recreational drugs. Lives alone in her apartment. Her daughters, Lexy Lopez and Patricia Mendoza, are healthcare proxies. REVIEW OF SYSTEMS: A 14-point review of systems was completed with the patient. All pertinent positives and negatives are in the history of present illness, otherwise it is negative. PHYSICAL EXAMINATION GENERAL: Pleasant woman lying in bed, uncomfortable, but not in acute distress. VITAL SIGNS: Temperature 97.7 degrees, heart rate is 78 beats per minute, respiratory rate 18 breaths per minute, pulse ox 97%, blood pressure 166/68. HEENT: Normocephalic, atraumatic. Pupils equal, round, and reactive to light. Moist mucous membranes. NECK: Supple. No JVD, bruits, palpable thyroid, or lymphadenopathy. CHEST: Clear to auscultation and percussion bilaterally. CARDIOVASCULAR: S1, S2 appreciated. 2/6 systolic murmur at the right sternal border. ABDOMEN: Positive bowel sounds in all 4 quadrants. Soft, nontender, nondistended. EXTREMITIES: No cyanosis or clubbing. She does have ulnar deviation and rheumatoid nodules on her hands. On her back side on her left side, she has a dressing which appears to be some purulent drainage, but her wound does look intact, but no bleeding at this time. SKIN: No other abnormalities. LABORATORY DATA: Pending. ASSESSMENT AND PLAN: 1. Nonhealing wound, possible infection. Start Ancef 1 g IV q.8. Does not appear to have a true allergy to cephalosporins. Surgery consult in the morning. Social work consult in the morning, as she may need assistance at home or short-term rehab. 2. Rheumatoid arthritis, stable. Continue current regimen. 3. Hypothyroidism, stable. Continue Synthroid. 4. Hypertension, somewhat elevated today. Monitor and adjust medications accordingly. 5. DVT prophylaxis. Heparin subcu. 6. FEN. Regular diet. 7. The patient is a full code. TIME SPENT: Over 75 minutes was spent on this H and P; more than 40 minutes was spent in direct [id number] contact with the patient in evaluation, physical exam, counseling, and coordination of care. [id number]/[facility] #: [id number] [facility]ALTHNa[facility]
[2017-02-09] MEDS ORDERED: fentaNYL Patch Check Q Shift 1 NOTE SCH (07:00)
[2017-02-09 08:29] LABS: Hematocrit 41 % (35-47); Hemoglobin 13.8 g/dl (12.0-16.0); Mean Corpuscular HGB Conc 34 g/dl (31-36); Mean Corpuscular Hemoglobin 31 pg (27-31); Mean Corpuscular Volume 92 fL (80-97); Mean Platelet Volume 9 um3 (7.4-10.4); Red Blood Count 4.46 10^6/ul (4.0-5.4); Red Cell Distribution Width 14 % (10.5-15); White Blood Count 4.9 10^3/ul (3.5-10.8)
[2017-02-09 08:41] LABS: ALT 16 U/L (7-52); Albumin 2.9 g/dL (3.2-5.2); Alkaline Phosphatase 73 U/L (34-104); BUN/Creatinine Ratio 20.8 (8-20); Blood Urea Nitrogen 10 mg/dL (6-24); CO2 Carbon Dioxide 26 mmol/L (22-32); Calcium 8.2 mg/dL (8.6-10.3); Chloride 105 mmol/L (101-111); EGFR Non-African American 126.8 (>60); Globulin 2.5 g/dL (2-4); Glucose 75 mg/dL (70-100); Sodium 135 mmol/L (133-145); Total Protein 5.4 g/dL (6.4-8.9)
[2017-02-09 08:46] LABS: Anion Gap 4 mmol/L (2-11)
[2017-02-09] MEDS ORDERED: Omeprazole CAP* 20 MG PO SCH (09:00)
[2017-02-09] MEDS ORDERED: Folic Acid TAB* 1 MG PO SCH (09:00)
[2017-02-09] MEDS ORDERED: Aspirin Low Dose CHEW TAB* 81 MG PO SCH (09:00)
[2017-02-09] MEDS ORDERED: Metoprolol Tartrate TAB* 25 MG PO SCH (09:00)
[2017-02-09] MEDS ORDERED: Ramipril CAP* 2.5 MG PO SCH (09:00)
[2017-02-09] MEDS ORDERED: BuPROPion XL* 300 MG TAB.XL PO SCH (09:00)
[2017-02-09] MEDS ORDERED: Gabapentin CAP(*) 300 MG PO SCH (09:00)
[2017-02-09] MEDS ORDERED: Potassium Chlor TAB* 20 MEQ TAB.ER PO SCH (09:00)
[2017-02-09] MEDS ORDERED: Atorvastatin* 80 MG TAB PO SCH (09:00)
[2017-02-09] MEDS ORDERED: Ondansetron INJ* 2 MG/ML VIAL IV PRN (09:43)
[2017-02-09 12:32] VITALS: BP 143/57
[2017-02-09] MEDS ORDERED: Magnesium Oxide TAB* 400 MG PO SCH (21:00)
[2017-02-10] MEDS ORDERED: Ferrous Gluconate TAB* 324 MG TAB PO SCH (09:00)
--- NOTE | 2017-02-10 10:20 | DS ---
CC: Dr. Fuller. * DISCHARGE SUMMARY: DATE OF ADMISSION: 02/08/17 DATE OF DISCHARGE: 02/09/17 HISTORY: This 71-year-old woman presented because of her bleeding decubitus ulcer wound. She had surgery by Dr. Cohen on 02/05/17 for the excision of a poorly healing decubitus wound on the left buttock. She came to the ER on 02/08/17 as she accidently pulled out the sutures and was bleeding. The wound was packed and she was sent home; however, the wound bled again and she came back. In the hospital there was really no significant bleeding of the wound. We packed the wound and sent her home. She has an appointment at [facility] at 3 p.m. on 02/10/17 which she will keep. Her daughter will bring her there. She did receive some cephalosporin antibiotic in the hospital. When viewing the wound on the day of discharge, there was no exudate on the wound at all. There was some erythema around the margin consistent with pressure and/or recent surgery. No clear infection. She has an appointment at the wound clinic tomorrow. I think it would be best to watch her off antibiotics and then see how she is doing. Her pain control was adequate. FINAL DIAGNOSES: 1. Left buttock decubitus ulcer. 2. Rheumatoid arthritis. 3. Hypothyroidism. 4. Hypertension. DISCHARGE MEDICATIONS: 1. Fentanyl patch 25 mcg every 72 hours. 2. Docusate 100 mg b.i.d. p.r.n. 3. Prolia 60 mg subcutaneously as prescribed. 4. Ramipril 5 mg daily. 5. Ferrous gluconate 325 mg every other day. 6. Gabapentin 300 mg b.i.d. 7. Omeprazole 40 mg daily. 8. Acetaminophen 500 mg b.i.d. p.r.n. 9. Potassium chloride 20 mEq daily. 10. Prednisone 5 mg daily. 11. Sulfadiazine apply topically as needed. 12. Magnesium oxide 800 mg daily. 13. Tocilizumab 162 mg subcutaneously every week. 14. Albuterol sulfate two puffs b.i.d. p.r.n. 15. Folic acid 1 mg daily. 16. Aspirin 81 mg daily. 17. Levothyroxine 75 mcg at bedtime. 18. Atorvastatin 80 mg daily. 19. Bupropion XL 300 mg daily. 20. Metoprolol 25 mg b.i.d. 21. Oxycodone 5 mg every 4 hours p.r.n. [id number]/[facility] #: [id number] [facility]
[2017-02-12] MEDS ORDERED: fentaNYL PATCH 25 MCG/HR TRANSDERM SCH (03:00)
== END 2017-02-09 15:55 | disposition home or self-care (01) ==
LOC: ED 19:44 → SSU 23:42
PROVIDERS: ADMIT Internal Medicine; ATTEND Internal Medicine
DX: L89.329 Pressure ulcer of left buttock, unspecified stage (principal); M06.9 Rheumatoid arthritis, unspecified; E03.9 Hypothyroidism, unspecified; Z88.1 Allergy status to other antibiotic agents; I25.119 Atherosclerotic heart disease of native coronary artery with unspecified angina pectoris; I10 Essential (primary) hypertension; K21.9 Gastro-esophageal reflux disease without esophagitis; Z95.5 Presence of coronary angioplasty implant and graft; J44.9 Chronic obstructive pulmonary disease, unspecified; E78.5 Hyperlipidemia, unspecified; I25.2 Old myocardial infarction; F41.9 Anxiety disorder, unspecified; F32.9 Major depressive disorder, single episode, unspecified; Z79.82 Long term (current) use of aspirin; Z79.899 Other long term (current) drug therapy; Z87.891 Personal history of nicotine dependence
CPT/HCPCS: 36415; 80053; 85025; 96365; 96366; 96372; 96375; 99283; A9270-GY; G0378; J0690; J1644; J2270; J2405

== ENCOUNTER 2017-03-22 19:03 | Inpatient (IN) | payer MEDICARE, MEDICAID ==
[2017-03-22] MEDS ORDERED: NS 0.9% 1000 ML* 1,000 ML IV ONE (21:16)
[2017-03-22] MEDS ORDERED: methylPREDNISolone 125 MG* 2 ML VIAL IV ONE (21:16)
[2017-03-22] MEDS ORDERED: Albuterol/Ipratropium NEB.SOL* Albuterol 2.5 MG/Ipratropium 0.5 MG 3 ML INH ONE (21:16)
[2017-03-22] MEDS ORDERED: Ondansetron INJ* 2 MG/ML VIAL IV ONE (21:16)
[2017-03-22] MEDS ORDERED: oxyCODONE TAB* 5 MG TAB PO ONE (21:18)
[2017-03-22 22:03] LABS: Hematocrit 40 % (35-47); Hemoglobin 13.2 g/dl (12.0-16.0); Mean Corpuscular HGB Conc 33 g/dl (31-36); Mean Corpuscular Hemoglobin 30 pg (27-31); Mean Corpuscular Volume 92 fL (80-97); Mean Platelet Volume 8 um3 (7.4-10.4); Red Blood Count 4.37 10^6/ul (4.0-5.4); Red Cell Distribution Width 13 % (10.5-15); White Blood Count 8.3 10^3/ul (3.5-10.8)
[2017-03-22 22:19] LABS: Albumin 2.9 g/dL (3.2-5.2); Calcium 8.6 mg/dL (8.6-10.3); EGFR African American 155.5 (>60); EGFR Non-African American 120.9 (>60); Globulin 3.3 g/dL (2-4); Potassium 4.4 mmol/L (3.5-5.0); Total Bilirubin 0.6 mg/dL (0.2-1.0); Total Protein 6.2 g/dL (6.4-8.9)
[2017-03-22 22:20] LABS: Troponin I 0.03 ng/mL (<0.04)
[2017-03-22] MEDS ORDERED: Levofloxacin 750 MG IVPREMIX(* 750 MG/150 ML BAG IVPB ONE (23:43)
[2017-03-23] MEDS ORDERED: Senna TAB PO PRN (00:36)
[2017-03-23] MEDS ORDERED: Al Hydrox/Mg Hydrox/Simet LIQ* 30 ML UDC PO PRN (00:36)
[2017-03-23] MEDS ORDERED: Albuterol 2.5 MG/3 ML NEB.SOL* (0.083%) INH PRN (00:36)
[2017-03-23] MEDS ORDERED: Furosemide IV* 10 MG/ML 2 ML VIAL (20 MG) IV ONE ×2 (00:39→11:55)
[2017-03-23] MEDS ORDERED: Aspirin TAB* 325 MG PO ONE (00:40)
[2017-03-23] MEDS ORDERED: DICLOFENAC 1% TOPICAL PRN (00:42)
[2017-03-23] MEDS ORDERED: fentaNYL PATCH 25 MCG/HR TRANSDERM SCH (01:00)
[2017-03-23] MEDS ORDERED: fentaNYL PATCH 12 MCG/HR TRANSDERM SCH (01:00)
[2017-03-23 01:04] LABS: C Reactive Protein 107.1 mg/L (< 5.00)
--- NOTE | 2017-03-23 01:40 | ED ---
I, Oh,Soohjes, scribed for Cresencio Morel MD on 03/22/17 at 2110 . Shortness of Breath - HPI Summary HPI Summary: This 71 y/o female presents to ED for SOB since today's afternoon. Pt was lying down and at rest at time of onset. Positive LLE edema. Negative cough. cable braider reports some crackled heard, but no crackle is auscultated at time of initial evaluation. PMHx is significant for COPD that is controlled with inhaler. Pt is not oxygen dependent at home. Other PMHx includes [place] s/p stent placement, bed sore s/p cyst removal off decubitus. Negative Hx of CHF. Pt is currently on ASA but not on any other blood thinner. Pt is remote former smoker. Nondrinker. - History of Current Complaint Chief Complaint: EDShortnessOfBreath Time Seen by Provider: 03/22/17 20:50 Hx Obtained From: Patient, Family/Finish Sander - daughter present at bedside, Medical Records Onset/Duration: Sudden Onset, Lasting Hours, Still Present Timing: Constant Dyspnea At: Rest - Allergy/Home Medications Allergies/Adverse Reactions: Allergies Allergy/AdvReac Type Severity Reaction Status Date / Time Cephalosporins Allergy Abdominal Verified 03/22/17 19:24 Pain PMH/Surg Hx/FS Hx/Imm Hx Endocrine/Hematology History: Reports: Hx Anticoagulant Therapy, Hx Anemia Denies: Hx Diabetes, Hx Systemic Lupus Erythematosus Cardiovascular History: Reports: Hx Angina, Hx Angioplasty, Hx Coronary Artery Disease - STENT, Hx Hypertension - ON MEDICATION FOR, Hx Myocardial Infarction, Other Cardiovascular Problems/Disorders - DR. DUNLAP Denies: Hx Congestive Heart Failure, Hx Hypercholesterolemia, Hx Pacemaker/ ICD, Hx Valvular Heart Disease Respiratory History: Reports: Hx Chronic Obstructive Pulmonary Disease (COPD), Other Respiratory Problems/Disorders - OCCASIONALLY DIFFICULTY BREATHING- PRN PROVENTIL- STATES HELPS Denies: Hx Asthma, Hx Lung Cancer, Hx Pneumonia, Hx Seasonal Allergies, Hx Sleep Apnea GI History: Reports: Hx Gall Bladder Disease - cholecystectomy, Hx Gastroesophageal Reflux Disease - ON MEDICATION FOR, Other GI Disorders - colitis History: Reports: Hx Kidney Infection, Hx Kidney Stones Denies: Hx Dialysis, Hx Renal Disease Musculoskeletal History: Reports: Hx Arthritis, Hx Rheumatoid Arthritis, Hx Back Problems, Hx Fibromyalgia, Hx Osteoporosis Sensory History: Reports: Hx Cataracts, Hx Contacts or Glasses Denies: Hx Glaucoma, Hx Hearing Aid Opthamlomology History: Reports: Hx Cataracts, Hx Contacts or Glasses Denies: Hx Glaucoma Neurological History: Reports: Hx Migraine - RARELY, Hx Seizures Denies: Hx Nerve Disease, Hx Spinal Cord Injury, Hx Transient Ischemic Attacks (TIA) Psychiatric History: Reports: Hx Anxiety - ON MEDICATION FOR, Hx Depression - ON MEDICATION FOR - Surgical History Surgery Procedure, Year, and Place: Cardiac stent; right hand surgery; left foot surgery; neck surgery, cholecystectomy, hysterectomy Hx Anesthesia Reactions: No Infectious Disease History: No Infectious Disease History: Reports: Hx of Known/Suspected MRSA Denies: Traveled Outside the [place] in Last 30 Days - Family History Known Family History: Positive: Other - [place]. cancer. TIA - Social History Alcohol Use: None Substance Use Type: Reports: None Smoking Status (MU): Former Smoker Type: Cigarettes Amount Used/How Often: 1 PPD X 45 YEARS Length of Time of Smoking/Using Tobacco: 48 years Have You Smoked in the Last Year: No Review of Systems Negative: Fever Negative: Chest Pain Positive: Shortness Of Breath Positive: Nausea - worse when upright All Other Systems Reviewed And Are Negative: Yes Physical Exam - Summary Physical Exam Summary: The patient is well-nourished in no acute distress and in no acute pain. The skin is noted pale and with decreased skin turgor. No cyanosis. HEENT: The head is normocephalic and atraumatic. The pupils are equal and reactive. The conjunctivae are clear and without drainage. Nares are patent and without drainage. Mouth reveals moist mucous membranes and the throat is without erythema and exudate. The external ears are intact. The ear canals are patent and without drainage. The tympanic membranes are intact. Neck is supple with full range of motion and non-tender. There are MILD carotid bruits. There is no neck vein distension. Respiratory: Chest is non-tender. Lungs are clear to auscultation and breath sounds are symmetrical and equal. Cardiovascular: Heart is regular rate and rhythm. There is no murmur auscultated. There is no peripheral edema and pulses are symmetrical and equal. Abdomen: The abdomen is soft and non-tender. There are normal bowel sounds heard in all four quadrants and there is no organomegaly palpated. Musculoskeletal: There is no back pain noted. Extremities are non-tender with full range of motion. There is good capillary refill. LLE pitting edema. Deformity at hands secondary to rheumatoid arthritis. Neurological: Patient is alert and oriented to person, place and time. The patient has symmetrical motor strength in all four extremities. Cranial nerves are grossly intact. Deep tendon reflexes are symmetrical and equal in all four extremities. Psychiatric: The patient has an appropriate affect and does not exhibit any anxiety or depression. formity at her hands secondary to rheuma arthritis Triage Information Reviewed: Yes Vital Signs On Initial Exam: Initial Vitals Temp Pulse Resp BP Pulse Ox 97.3 F 88 19 149/64 98 03/22/17 19:22 03/22/17 19:22 03/22/17 19:22 03/22/17 19:22 03/22/17 19:22 Vital Signs Reviewed: Yes - Junior Coma Scale Coma Scale Total: 15 Diagnostics - Vital Signs Vital Signs Temp Pulse Resp BP Pulse Ox 03/22/17 20:00 93 14 134/57 94 03/22/17 19:30 88 12 160/68 97 03/22/17 19:22 97.3 F 88 19 149/64 98 - Laboratory Lab Results: Lab Results 03/22/17 03/22/17 03/22/17 Range/Units 21:53 21:53 21:53 WBC 8.3 (3.5-10.8) 10^3/ul RBC 4.37 (4.0-5.4) 10^6/ul Hgb 13.2 (12.0-16.0) g/dl Hct 40 (35-47) % MCV 92 (80-97) fL MCH 30 (27-31) pg MCHC 33 (31-36) g/dl RDW 13 (10.5-15) % Plt Count 243 (150-450) 10^3/ul MPV 8 (7.4-10.4) um3 Neut % (Auto) 75.9 (38-83) % Lymph % (Auto) 11.4 L (25-47) % [place] % (Auto) 10.1 H (1-9) % Eos % (Auto) 2.1 (0-6) % Baso % (Auto) 0.5 (0-2) % Absolute Neuts (auto) 6.3 (1.5-7.7) 10^3/ul Absolute Lymphs (auto) 0.9 L (1.0-4.8) 10^3/ul Absolute Monos (auto) 0.8 (0-0.8) 10^3/ul Absolute Eos (auto) 0.2 (0-0.6) 10^3/ul Absolute Basos (auto) 0 (0-0.2) 10^3/ul Absolute Nucleated RBC 0.01 10^3/ul Nucleated RBC % 0.1 Sodium 133 (133-145) mmol/L Potassium 4.4 (3.5-5.0) mmol/L Chloride 100 L (101-111) mmol/L Carbon Dioxide 26 (22-32) mmol/L Anion Gap 7 (2-11) mmol/L BUN 14 (6-24) mg/dL Creatinine 0.50 L (0.51-0.95) mg/dL Est GFR ( Amer) 155.5 (>60) Est GFR (Non-Af Amer) 120.9 (>60) BUN/Creatinine Ratio 28.0 H (8-20) Glucose 76 (70-100) mg/dL Lactic Acid 1.6 (0.5-2.0) mmol/L Calcium 8.6 (8.6-10.3) mg/dL Total Bilirubin 0.60 (0.2-1.0) mg/dL AST 25 (13-39) U/L ALT 15 (7-52) U/L Alkaline Phosphatase 137 H (34-104) U/L Troponin I 0.03 (<0.04) ng/mL C-Reactive Protein 107.10 H (< 5.00) mg/L B-Natriuretic Peptide ( - 100) pg/mL Total Protein 6.2 L (6.4-8.9) g/dL Albumin 2.9 L (3.2-5.2) g/dL Globulin 3.3 (2-4) g/dL Albumin/Globulin Ratio 0.9 L (1-3) 03/22/17 Range/Units 21:53 WBC (3.5-10.8) 10^3/ul RBC (4.0-5.4) 10^6/ul Hgb (12.0-16.0) g/dl Hct (35-47) % MCV (80-97) fL MCH (27-31) pg MCHC (31-36) g/dl RDW (10.5-15) % Plt Count (150-450) 10^3/ul MPV (7.4-10.4) um3 Neut % (Auto) (38-83) % Lymph % (Auto) (25-47) % [place] % (Auto) (1-9) % Eos % (Auto) (0-6) % Baso % (Auto) (0-2) % Absolute Neuts (auto) (1.5-7.7) 10^3/ul Absolute Lymphs (auto) (1.0-4.8) 10^3/ul Absolute Monos (auto) (0-0.8) 10^3/ul Absolute Eos (auto) (0-0.6) 10^3/ul Absolute Basos (auto) (0-0.2) 10^3/ul Absolute Nucleated RBC 10^3/ul Nucleated RBC % Sodium (133-145) mmol/L Potassium (3.5-5.0) mmol/L Chloride (101-111) mmol/L Carbon Dioxide (22-32) mmol/L Anion Gap (2-11) mmol/L BUN (6-24) mg/dL Creatinine (0.51-0.95) mg/dL Est GFR ( Amer) (>60) Est GFR (Non-Af Amer) (>60) BUN/Creatinine Ratio (8-20) Glucose (70-100) mg/dL Lactic Acid (0.5-2.0) mmol/L Calcium (8.6-10.3) mg/dL Total Bilirubin (0.2-1.0) mg/dL AST (13-39) U/L ALT (7-52) U/L Alkaline Phosphatase (34-104) U/L Troponin I (<0.04) ng/mL C-Reactive Protein (< 5.00) mg/L B-Natriuretic Peptide 230 H ( - 100) pg/mL Total Protein (6.4-8.9) g/dL Albumin (3.2-5.2) g/dL Globulin (2-4) g/dL Albumin/Globulin Ratio (1-3) Result Diagrams: 03/22/17 21:53 03/22/17 21:53 Lab Statement: Any lab studies that have been ordered have been reviewed, and results considered in the medical decision making process. - Radiology CXR Xray Interpretation: Positive (See Comments) - Right lower lobe infiltrate Radiology Interpretation Completed By: ED Physician - EKG 2205 Cardiac Rate: NL - 98 bpm EKG Interpretation: Left axis deviation. Poor R-wave progression. Q waves at III and aVF Course/Dx - Course Assessment/Plan: This 71 y/o female presents to ED for acute on chronic SOB since 4 hours ago. PMHx is significant for known COPD. Pt denies any known Hx of CHF. Pt was in lying position at time of onset. CXR is noted with right lower lobe infiltrate. Blood work indicates elevated BNP of 230. Plan of care is discussed, and pt does not feel safe to be discharge and requests admission. Dr. Sanchez evaluated pt in ED, and agreeable to admit pt. - Diagnoses Differential Diagnosis/HQI/PQRI: Positive: Bronchitis, CHF, COPD Exacerbation, [place], Pneumonia Provider Diagnoses: Acute dyspnea, COPD exacerbation, Pneumonia - Physician Notifications Discussed Care of Patient With: Alie Sanchez Time Discussed With Above Provider: 23:48 Discharge - Discharge Plan Condition: Stable Disposition: ADMITTED TO [facility] documentation as recorded by the Pierre erazo Soohyun accurately reflects the service I personally performed and the decisions made by , Cresencio Morel MD.
[2017-03-23] MEDS: oxyCODONE TAB* 5 MG TAB PO PRN ×5 (02:38→22:53)
[2017-03-23] MEDS: Ondansetron INJ* 2 MG/ML VIAL IV PRN ×5 (02:51→21:02)
[2017-03-23] MEDS ORDERED: Iohexol 350* (CONTRAST) 500 ML MDV IV ONE (04:10)
--- NOTE | 2017-03-23 04:22 | HP ---
CC: Fernando Fuller DO * HISTORY AND PHYSICAL: DATE OF ADMISSION: 03/23/17 TIME OF EVALUATION: 0100. PRIMARY CARE PHYSICIAN: Fernando Fuller DO CHIEF COMPLAINT: Shortness of breath and chest heaviness. HISTORY OF PRESENT ILLNESS: This is a 71-year-old female with a past medical history of rheumatoid arthritis, on immunosuppressive agents and coronary artery disease who presented to the emergency room with one-day history of shortness of breath, heavy breathing and chest heaviness. Prior to that, the patient was in her usual state of health. Her bedside, who is at the bedside, is very concerned about her as she is very fragile and labile with her health. She has a visiting nurse who comes in to help with dressing changes of her buttock wound who states she heard crackles in her lungs. She called her primary and had not heard back. Her shortness of breath started to get worse. So, she came to the emergency room for further evaluation. She denies any cough. She states she has chronic congestion, no abdominal pain. She has been very nauseated in the emergency room. She was diaphoretic earlier. They also noted some new left lower extremity swelling. Over the past 6 months, she has had significant weight loss from 157 to 124 pounds. She has lost her appetite, they do try to increase in her protein. She has followed by Dr. Sykes for her coronary disease and she thinks she had a stress test about 6 months ago. The patient is denying chest heaviness at this time, but extremely nauseated. Otherwise, remaining review of systems negative. In the emergency room, the patient had labs and imaging. She was given a liter of normal saline, oxycodone 5 mg, Zofran, methylprednisolone 125 and Levaquin and was referred to the hospital service for further evaluation. PAST MEDICAL HISTORY: 1. History of compression fracture. 2. History of degenerative joint disease involving multiple joints. 3. History of coronary artery disease, status post PR and PCI. 4. History of osteoporosis. 5. History of rheumatoid arthritis. 6. History of hyperlipidemia. 7. Hypertension. 8. History of left wound buttock. 9. History of on chronic immunosuppressive agents. 10. Depression. 11. Gastroesophageal reflux disease. 12. Hypothyroidism. 13. Chronic pain. MEDICATIONS: 1. Hydroxychloroquine 200 mg p.o. b.i.d. 2. Diclofenac 75 mg p.o. b.i.d. with food. 3. Prolia 60 mg subcu q. Mondays. 4. Prednisone 5 mg every day. 5. Voltaren 1% to the affected area twice a day as needed. 6. Actemra, which is currently on hold. She was getting 0.9 mL under the skin every other week. 7. Folic acid 1 mg every day. 8. Wellbutrin XL 300 mg p.o. daily. 9. Gabapentin 300 mg p.o. b.i.d. 10. Prilosec 40 mg daily. 11. Oxycodone 5 mg every 4 to 6 hours as needed for pain. 12. Altace 5 mg daily. 13. Synthroid 75 mcg daily. 14. Metoprolol tartrate 25 mg p.o. b.i.d. 15. Aspirin 81 mg daily. 16. Colace 100 mg p.o. b.i.d. as needed for constipation. 17. Ferrous sulfate every other day. The patient has not been taking this. 18. Tylenol 500 mg twice a day as needed. 19. Atorvastatin 80 mg p.o. daily. 20. Fentanyl 37.5 mcg topical q.3 days. ALLERGIES: CEPHALOSPORINS. FAMILY HISTORY: Mother from lung cancer. Father from suicide. SOCIAL HISTORY: The patient is a former smoker. No alcohol or illicit drug use. She lives alone. She is a wheelchair bound, but able to transfer herself. She does have aides come in daily to help care for her and she has VNS as well dealing with her wound care dressing. She as mentioned is nonambulatory. Her 2 daughters are her healthcare proxy, Antonia Lopez and Patricia Mendoza. We talked about her MOLST form and she is a DNR/DNI and this will be filled out in the emergency room. REVIEW OF SYSTEMS: A 14-point review of systems reviewed, pertinent positives and negatives as mentioned in the HPI, otherwise negative. PHYSICAL EXAMINATION GENERAL: Frail elderly female, in no acute distress with the daughter at the bedside. VITAL SIGNS: Temp 97.3, pulse rate 101, respiratory rate 28, oxygen saturation 93% on room air, blood pressure 154/73. HEENT: Head normocephalic. Pupils are equal and reactive, anicteric. Oropharynx: Mucous membranes are moist. No erythema, no exudates. NECK: Supple. No lymphadenopathy. RESPIRATORY: Rhonchorous breath sounds bilaterally, more prominent on the left. CARDIAC: Regular rate and rhythm. Soft systolic murmur heard throughout. ABDOMEN: Soft, nontender, nondistended. EXTREMITIES: No clubbing, cyanosis or edema. The patient has rheumatoid arthritic contracted upper extremity hands, +1 DPs. Some notable left lower extremity swelling, more pronounced on the right. NEUROLOGIC: Alert and oriented x3. No focal neurologic deficits. Diffuse generalized weakness. DIAGNOSTIC STUDIES/LAB DATA: White count 8.3, hemoglobin 13.2, hematocrit 40, platelets 243. Sodium 133, potassium 4.4, chloride 100, bicarb 26, BUN 14, creatinine 0.5, glucose 76. Troponin 0.03. BNP 230. Albumin is 2.9. Radiographic data: No acute abnormalities. EKG shows normal sinus rhythm with a rate of 98. ASSESSMENT: This is a 71-year-old female with past medical history of coronary artery disease, chronic obstructive pulmonary disease, rheumatoid arthritis who presented to the emergency room with one-day onset of shortness of breath and chest heaviness. Shortness of breath and chest heaviness: Assessment: I am concerned for cardiac causes and may be acute decompensated mild congestive heart failure. Her BNP is slightly elevated. There are no significant changes from the her chest x-ray compared to prior chest x-ray. Other possibilities, she does have some subtle left lower extremity swelling. Could be a PE. She also has history of COPD and she is immunosuppressed. No white count, no fever. Plan: We will admit her to telemetry. Will get a CTA of chest to rule out a PE. We will rule her out with troponins, get an echocardiogram, we will get a Doppler of her left lower extremity. I would also check inflammatory markers including sed rate, CRP, and procalcitonin level to help differentiate etiology behind her presentation. The patient did get a dose of Levaquin. We will hold further antibiotics at this time until further information is required. CHRONIC MEDICAL PROBLEMS: 1. We will resume her home medication as indicated. If the patient become decompensated, she will need stress-dosed steroid. At this time, is does not indicated, but we will follow along closely. 2. Diet: We will place the patient on a low salt heart healthy diet. 3. DVT prophylaxis: The patient scores high risk, placed on heparin subcu t.i.d. 4. Code status: She is confirmed a DNR/DNI. PATIENT'S TIME: Greater than 70 minutes spent doing the history and physical, more than half the time spent in direct patient contact. [id number] #: [id number] MTDD
[2017-03-23 05:38] LABS: Hematocrit 42 % (35-47); Hemoglobin 14.2 g/dl (12.0-16.0); Mean Corpuscular HGB Conc 34 g/dl (31-36); Mean Corpuscular Hemoglobin 31 pg (27-31); Mean Corpuscular Volume 91 fL (80-97); Mean Platelet Volume 8 um3 (7.4-10.4); Red Blood Count 4.59 10^6/ul (4.0-5.4); Red Cell Distribution Width 13 % (10.5-15); White Blood Count 3.6 10^3/ul (3.5-10.8)
[2017-03-23 05:54] LABS: BUN/Creatinine Ratio 16.7 (8-20); Calcium 8.5 mg/dL (8.6-10.3); EGFR African American 142.3 (>60); EGFR Non-African American 110.7 (>60); HDL Cholesterol 45.5 mg/dL
[2017-03-23 06:03] LABS: Troponin I 0.04 ng/mL (<0.04)
[2017-03-23] MEDS: Omeprazole CAP* 20 MG PO SCH (06:23)
[2017-03-23] MEDS: Levothyroxine TAB* 75 MCG TAB PO SCH (06:23)
[2017-03-23] MEDS: Heparin VIAL(*) 5000 UNITS/ML VIAL (FIVE THOUSAND) SUBCUT SCH ×3 (06:23→20:50)
--- NOTE | 2017-03-23 07:36 | RAD ---
HISTORY: Cough, shortness of breath COMPARISONS: May 24, 2016 VIEWS: 2: Frontal and lateral views of the chest. FINDINGS: CARDIOMEDIASTINAL SILHOUETTE: The aorta is tortuous. The cardiomediastinal silhouette is otherwise unremarkable. JESSICA: The jessica are normal. PLEURA: The costophrenic angles are sharp. No pleural abnormalities are noted. LUNG PARENCHYMA: There is hyperinflation with flattening of the diaphragm and expansion of the AP diameter of the chest. There is patchy alveolar opacification of the right lung base near the cardiophrenic angle. ABDOMEN: The upper abdomen is clear. There is no subphrenic gas. BONES AND SOFT TISSUES: There are advanced degenerative changes are noted of the shoulders. There is diffuse osteopenia. OTHER: None. IMPRESSION: 1. HYPERINFLATION, CONSISTENT WITH COPD. 2. PATCHY RIGHT LOWER LUNG ATELECTASIS VERSUS EARLY CONSOLIDATION.
[2017-03-23] MEDS: Ramipril CAP* 5 MG PO SCH (07:43)
[2017-03-23] MEDS: Folic Acid TAB* 1 MG PO SCH (07:43)
[2017-03-23] MEDS: Metoprolol Tartrate TAB* 25 MG PO SCH ×2 (07:43→20:52)
[2017-03-23] MEDS: buPROPion TAB* 75 MG PO SCH ×2 (07:44→20:50)
[2017-03-23] MEDS: Gabapentin CAP(*) 300 MG PO SCH ×2 (07:44→20:50)
[2017-03-23] MEDS: Aspirin EC Low Dose* 81 MG TAB.EC PO SCH (07:44)
[2017-03-23] MEDS: predniSONE TAB* 5 MG PO SCH (07:44)
[2017-03-23] MEDS: fentaNYL Patch Check Q Shift 1 NOTE SCH ×2 (07:51→22:57)
--- NOTE | 2017-03-23 08:01 | RAD ---
INDICATION: Chest pain. Short of breath. Evaluate for pulmonary embolus. COMPARISON: Chest x-ray March 22, 2017; CTA chest May 24, 2016 TECHNIQUE: Axial source images were obtained from the thoracic inlet to the hemidiaphragms following administration of [address] angiographic technique was utilized. Coronal and sagittal reconstructed images were acquired. CHEST FINDINGS: Neck/thyroid: The visualized neck to include the thyroid appear normal. Chest wall: There are no acute abnormalities of the bony thorax or chest wall. There is spondylitic change of the thoracic spine with kyphosis and chronic compression deformities of T8 and T12. There is no supraclavicular, infraclavicular, or axillary lymphadenopathy. Lungs : There are no pulmonary parenchymal masses or infiltrates. The pulmonary interstitium appears prominent compatible with chronic change. There is mild hyperinflation. There are no endobronchial lesions. Cardiomediastinal structures: There is no CT evidence of acute pulmonary embolic disease. The heart is normal in size. There is no pericardial effusion. There is no evidence of aortic aneurysm or dissection. There are atherosclerotic changes with aortic intimal calcifications and coronary artery calcifications There is no mediastinal or hilar adenopathy. The esophagus appears normal. Pleura : There are no pleural-based masses or effusions. Other: None. IMPRESSION: NO CT EVIDENCE OF ACUTE PULMONARY EMBOLIC DISEASE. CHRONIC LUNG FINDINGS WITH HYPERINFLATION . THORACIC SPINE COMPRESSION DEFORMITIES, UNCHANGED.
[2017-03-23] MEDS: Hydroxychloroquine TAB* 200 MG PO SCH ×2 (08:05→20:49)
[2017-03-23] MEDS: Silver Sulfadiazine 1%* 20 GM TOPICAL SCH (09:41)
--- NOTE | 2017-03-23 09:58 | RAD ---
Indication: Left lower extremity pain. Duplex Doppler sonography of the deep venous system of the left lower extremity was performed. Bilaterally the common femoral veins appear patent and compressible. Left proximal greater saphenous vein, proximal deep femoral vein, femoral vein and popliteal vein appear patent and compressible. The peroneal veins is not visualized. This may be due to body habitus. One of the paired posterior tibial vein is also not visualized and is presumed to be thrombosed. IMPRESSION: Peroneal veins are not visualized. One of the paired posterior tibial veins is not visualized and may be thrombosed.
--- NOTE | 2017-03-23 11:18 | ECHO ---
Patient: NAEL JAUREGUI [facility] Rec#: [id number] : 1945 Date: 03/23/2017 Age: 71y Height: 154.9 cm / 61.0 in Weight: 57.2 kg / 126.1 lbs Sex: F BSA: 1.55 Room#: [facility] Admit Date#: 03/23/2017 Type: Inpatient Referring: Alie Sanchez Reading: Deyvi Muse MD Public Relations Consultant: Janine Harrington RN RDCS CC: Sharyn Sykes MD CC: Fernando Fuller MD Transthoracic Echocardiogram Indication: Shortness of breath BP: 144/81 HR: 107 Rhythm: Tachycardia Findings History: CAD, AR, PCI, HTN, COPD, hypothyroidism, RA, former smoker Technical Comments: The study quality is fair. The study is technically limited due to the patient's history of COPD. The study is technically limited due to the patient's smoking history. Completed at 0905. Left Ventricle: The left ventricular chamber size is decreased. Mild concentric left ventricular hypertrophy is observed.with sigmoid septum. ( no significant obstruction) Global left ventricular wall motion and contractility are within normal limits. The left ventricle appears hyperdynamic. The estimated ejection fraction is greater than 65%. There is an E to A reversal in the mitral valve flow pattern suggestive of diastolic dysfunction. Left Atrium: The left atrium is mildly dilated. Right Ventricle: The right ventricular chamber size and systolic function are within normal limits. The right ventricle wall thickness is mildly increased.7 mm. Right Atrium: The right atrium is slightly dilated. Aortic Valve: The aortic valve is trileaflet. The aortic valve leaflets are mildly thickened. There is no evidence of aortic regurgitation. There is no evidence of aortic stenosis. Mitral Valve: The mitral valve leaflets are mildly thickened. There is a trace of mitral regurgitation. There is no evidence of mitral stenosis. Tricuspid Valve: The tricuspid valve leaflets are normal. There is trace tricuspid regurgitation. There is evidence of mild pulmonary hypertension. There is no tricuspid stenosis. Pulmonic Valve: The pulmonic valve appears normal. There is no evidence of pulmonic regurgitation. There is no pulmonic stenosis. Pericardium: There is no significant pericardial effusion. A pericardial fat pad is visualized. Aorta: There is no dilatation of the ascending aorta. The aortic arch is not well visualized. There is no dilation of the aortic root. Pulmonary Artery: The main pulmonary artery is not well visualized. Venous: The venous system is not well visualized. The inferior vena cava is not visualized. Conclusions The study quality is fair. Mild concentric left ventricular hypertrophy is observed.with sigmoid septum. ( no significant obstruction) The left ventricle appears hyperdynamic. The estimated ejection fraction is greater than 65%. There is an E to A reversal in the mitral valve flow pattern suggestive of diastolic dysfunction. The left atrium is mildly dilated. The right ventricle wall thickness is mildly increased. The right atrium is slightly dilated. The aortic valve leaflets are mildly thickened. There is a trace of mitral regurgitation. There is trace tricuspid regurgitation. There is evidence of mild pulmonary hypertension. Similar to except that the RVH was not reported last time. Measurements Name Value Normal Range RVIDd (AP) 2D 2.2 cm (0.9 - 2.6) RVDdMajor (2D) 3 cm (2.2 - 4.4) RVAW (2D) 0.8 cm (0.2 - 0.5) RAd ISD 4CH 5 cm (3.4 - 4.9) RA (A4C)W 2.9 cm (2.9 - 4.6) IVSd (2D) 1.1 cm (0.6 - 1) LVPWd (2D) 1.1 cm (0.6 - 1) LVIDd (2D) 2.3 cm (3.6 - 5.4) LVIDs (2D) 1.3 cm - LV FS (2D) 43 % (25 - 45) Aortic Annulus 2 cm (1.4 - 2.6) Ao root diameter (2D) 3.1 cm (2.1 - 3.5) Ascending Ao 2.7 cm (2.1 - 3.4) LA dimension (AP) 2D 2.8 cm (2.3 - 3.8) LAd ISD 4CH 4.3 cm (2.9 - 5.3) LA ISD 4CH W 4 cm (2.5 - 4.5) Name Value Normal Range LA ESV SP 4CH (A/L) 39 ml - LA ESV SP 2CH (A/L) 27 ml - LA ESV BP (A/L) 32 ml - LA ESV BP (A/L) index 21 ml/m2 - LA ESV SP 4CH (MOD) 34 ml - LA ESV SP 2CH (MOD) 26 ml - Name Value Normal Range MV E-wave Vmax 0.6 m/sec - MV deceleration time 142 msec - MV A-wave Vmax 0.99 m/sec - MV E:A ratio 0.6 ratio - LV septal e' Vmax 0.05 m/sec - LV lateral e' Vmax 0.07 m/sec - LV E:e' septal ratio 12 ratio - LV E:e' lateral ratio 8.6 ratio - Name Value Normal Range AV Vmax 1.4 m/sec - AV VTI 30 cm - AV peak gradient 7.2 mmHg - AV mean gradient 4.7 mmHg - LVOT Vmax 0.81 m/sec - LVOT VTI 17.3 cm - LVOT peak gradient 2.6 mmHg - LVOT mean gradient 1.6 mmHg - Name Value Normal Range TR Vmax 2.9 m/sec - TR peak gradient 34 mmHg - RAP 8 mmHg - RVSP 42 mmHg - Name Value Normal Range PV Vmax 0.88 m/sec -
--- NOTE | 2017-03-23 13:27 | PN ---
Hospitalist Progress Note HOSPITALIST ADDENDUM Patient seen and examined at bedside. H&P reviewed. Mr. Parks is a 71yo F with PMH of RA, CAD, HTN, HLD, GERD, left buttock wound, who presented to ED with c/o chest heaviness and dyspnea. Also c/o orthopnea and PND. CVS: normal S1 and S2, RRR. Chest: BS+ bilaterally with bibasilar rales. A/P: Acute CHF exacerbation. - Continue diuresis and follow echocardiogram. - Check troponins until peak - suspect mild elevation is secondary to CHF.
[2017-03-23] MEDS: Atorvastatin* 80 MG TAB PO SCH (16:25)
[2017-03-23] MEDS: Acetaminophen TAB* 325 MG PO PRN (17:31)
[2017-03-24 05:16] LABS: Hematocrit 42 % (35-47); Hemoglobin 13.7 g/dl (12.0-16.0); Mean Corpuscular HGB Conc 33 g/dl (31-36); Mean Corpuscular Hemoglobin 30 pg (27-31); Mean Corpuscular Volume 91 fL (80-97); Mean Platelet Volume 8 um3 (7.4-10.4); Red Blood Count 4.56 10^6/ul (4.0-5.4); Red Cell Distribution Width 13 % (10.5-15); White Blood Count 8.8 10^3/ul (3.5-10.8)
[2017-03-24 05:26] LABS: BUN/Creatinine Ratio 22.4 (8-20); Calcium 8.4 mg/dL (8.6-10.3); EGFR Non-African American 86.3 (>60); Potassium 3.6 mmol/L (3.5-5.0)
[2017-03-24] MEDS: Heparin VIAL(*) 5000 UNITS/ML VIAL (FIVE THOUSAND) SUBCUT SCH (05:26)
[2017-03-24] MEDS: Omeprazole CAP* 20 MG PO SCH (05:27)
[2017-03-24] MEDS: Levothyroxine TAB* 75 MCG TAB PO SCH (05:27)
[2017-03-24] MEDS: Acetaminophen TAB* 325 MG PO PRN ×2 (05:30→12:20)
[2017-03-24] MEDS: oxyCODONE TAB* 5 MG TAB PO PRN ×3 (05:30→20:28)
[2017-03-24] MEDS: Folic Acid TAB* 1 MG PO SCH (08:14)
[2017-03-24] MEDS: buPROPion TAB* 75 MG PO SCH ×2 (08:14→20:30)
[2017-03-24] MEDS: Metoprolol Tartrate TAB* 25 MG PO SCH ×2 (08:15→20:28)
[2017-03-24] MEDS: Hydroxychloroquine TAB* 200 MG PO SCH ×2 (08:15→20:30)
[2017-03-24] MEDS: Aspirin EC Low Dose* 81 MG TAB.EC PO SCH (08:15)
[2017-03-24] MEDS: Gabapentin CAP(*) 300 MG PO SCH ×2 (08:15→20:29)
[2017-03-24] MEDS: predniSONE TAB* 5 MG PO SCH (08:15)
[2017-03-24] MEDS: fentaNYL Patch Check Q Shift 1 NOTE SCH ×2 (08:17→19:06)
[2017-03-24] MEDS: Silver Sulfadiazine 1%* 20 GM TOPICAL SCH (08:18)
[2017-03-24] MEDS: Ramipril CAP* 5 MG PO SCH (08:29)
[2017-03-24] MEDS: Furosemide TAB* 20 MG PO SCH (11:56)
[2017-03-24] MEDS ORDERED: fentaNYL PATCH 25 MCG/HR TRANSDERM SCH (12:00)
[2017-03-24] MEDS ORDERED: Apixaban* 5 MG TAB PO SCH (12:00)
[2017-03-24] MEDS ORDERED: fentaNYL PATCH 12 MCG/HR TRANSDERM SCH (12:00)
[2017-03-24] MEDS: fentaNYL PATCH 50 MCG/HR TRANSDERM SCH (12:43)
--- NOTE | 2017-03-24 14:07 | PN ---
Subjective Date of Service: 03/24/17 Interval History: HOSPITALIST PROGRESS NOTE Patient seen and examined at bedside. She feels much better today. Chest heaviness and dyspnea are much improved, able to sleep flat last night. Denies chest pain or palpitations. LE edema is improved, but left calf still sore. Family History: Unchanged from Admission Social History: Unchanged from Admission Past Medical History: Unchanged from Admission Objective Active Medications: Acetaminophen (Tylenol Tab*) 650 mg PO Q4H PRN PRN Reason: FEVER/PAIN Last Admin: 03/24/17 12:20 Dose: 650 mg Al Hydrox/Mg Hydrox/Simethicone (Maalox Plus*) 30 ml PO Q6H PRN PRN Reason: INDIGESTION Albuterol (Ventolin 2.5 Mg/3 Ml Neb.Allison*) 2.5 mg INH [id number] AWAKE PRN PRN Reason: sob/wheezing Apixaban (Eliquis*) 5 mg PO BID [facility] Last Admin: 03/24/17 11:56 Dose: 5 mg Aspirin (Aspirin Ec Low Dose*) 81 mg PO DAILY [facility] Last Admin: 03/24/17 08:15 Dose: 81 mg Atorvastatin Calcium (Lipitor*) 80 mg PO 1700 [facility] Last Admin: 03/23/17 16:25 Dose: 80 mg Bupropion HCl (Wellbutrin Tab*) 150 mg PO BID [facility] Last Admin: 03/24/17 08:14 Dose: 150 mg Diclofenac Sodium (Voltaren 1% Gel (Nf)) 1 applic TOPICAL BID PRN; Protocol PRN Reason: PAIN Docusate Sodium (Colace Cap*) 100 mg PO BID PRN PRN Reason: CONSTIPATION Fentanyl (Duragesic Patch 50 Mcg/Hr*) 50 mcg TRANSDERM Q72H [facility] Last Admin: 03/24/17 12:43 Dose: 50 mcg Folic Acid (Folvite Tab*) 1 mg PO DAILY [facility] Last Admin: 03/24/17 08:14 Dose: 1 mg Furosemide (Lasix Tab*) 20 mg PO DAILY [facility] Last Admin: 03/24/17 11:56 Dose: 20 mg Gabapentin (Neurontin Cap(*)) 300 mg PO BID [facility] Last Admin: 03/24/17 08:15 Dose: 300 mg Hydroxychloroquine Sulfate (Plaquenil Tab*) 200 mg PO BID [facility] Last Admin: 03/24/17 08:15 Dose: 200 mg Levothyroxine Sodium (Synthroid Tab*) 75 mcg PO DAILY@0600 [facility] Last Admin: 03/24/17 05:27 Dose: 75 mcg Metoprolol Tartrate (Lopressor Tab*) 25 mg PO BID [facility] Last Admin: 03/24/17 08:15 Dose: 25 mg Omeprazole (Prilosec Cap*) 20 mg PO 0600 [facility] Last Admin: 03/24/17 05:27 Dose: 20 mg Ondansetron HCl (Zofran Inj*) 4 mg IV Q4H PRN PRN Reason: NAUSEA/VOMITING Last Admin: 03/23/17 21:02 Dose: 4 mg Oxycodone HCl (Roxycodone Tab*) 5 mg PO Q4H PRN PRN Reason: PAIN Last Admin: 03/24/17 09:42 Dose: 5 mg Pharmacy Profile Note (Fentanyl Patch Check Q Shift) 1 note N/A 0700,1900 [facility] Last Admin: 03/24/17 08:17 Dose: 1 note Prednisone (Deltasone Tab*) 5 mg PO DAILY [facility] Last Admin: 03/24/17 08:15 Dose: 5 mg Ramipril (Altace Cap*) 5 mg PO DAILY [facility] Last Admin: 03/24/17 08:29 Dose: 5 mg Senna (Senokot Tab*) 1 tab PO BID PRN PRN Reason: CONSTIPATION Silver Sulfadiazine (Silvadine 1%*) 1 applic TOPICAL DAILY [facility] Last Admin: 03/24/17 08:18 Dose: 1 applic Vital Signs 03/24/17 03/24/17 03/24/17 10:14 11:35 11:43 Temperature 97.8 F Pulse Rate 69 Respiratory 18 18 16 Rate Blood Pressure 125/58 (mmHg) O2 Sat by Pulse 96 Oximetry Oxygen Devices in Use Now: None Appearance: Pleasant lady lying in bed in [facility]. Eyes: No Scleral Icterus Ears/Nose/Mouth/Throat: Mucous Membranes Moist Neck: Trachea Midline Respiratory: Symmetrical Chest Expansion and Respiratory Effort, Clear to Auscultation Cardiovascular: RRR Abdominal: NL Sounds; No Tenderness; No Distention Extremities: No Edema Neurological: Alert and Oriented x 3, NL Muscle Strength and Tone Lines/Tubes/Other Access: Clean, Dry and Intact Peripheral IV Nutrition: Taking PO's Result Diagrams: 03/24/17 04:44 03/24/17 04:44 Assess/Plan/Problems-Billing Assessment: Mrs. Parks is a 71yo F with PMH of RA, osteoporosis with compression fractures , HLD, HTN, left buttock wound, depression, GERD, hypothyroidism, chronic pain, who presented to ED with chest heaviness and dyspnea, found to have acute diastolic CHF exacerbation. - Patient Problems (1) Acute diastolic CHF (congestive heart failure) Comment: - Much improved today. - Echo showed EF >65% with diastolic dysfunction. - Responded well to Furosemide - lost 5lbs over the last 24h. - Continue gentle diuresis with Furosemide. (2) DVT (deep venous thrombosis) Comment: - Patient c/o soreness on her left calf and LE doppler suggests thrombosis of one of the paired posterior tibial veins. - Discussed options with patient and family - as this is a below the knee DVT, we could just monitor for now and repeat her doppler later this week, or pursue treatment, especially since she has symptoms. Patient wants to pursue treatment. We talked about risk and benefits of anticoagulation and different options including Warfarin and NOACs. She did have an episode of LGI bleed secondary to infectious colitis in 2015, but this is not a current issue. Patient understands the risks, especially of bleeding, as her was treated with Warfarin for a long time and she is familiar with it. She does not want to take warfarin as she remembers his dietary restrictions and need for frequent blood tests. After reviewing risks and benefits, we decided to start anticoagulation with Eliquis. Plant to treat for at least 3 months. (3) Rheumatoid arthritis Comment: - Stable. - Continue prednisone and hydroxycloroquine. (4) Chronic pain Comment: - Continue Fentanyl patch and oxycodone. (5) DVT prophylaxis Comment: - Eliquis. (6) Buttock wound Comment: - Present on admission. - Wound clinic follow up. (7) Physical deconditioning Comment: - PT/OT consults. - Will likely need placement for rehab. (8) DNR (do not resuscitate) Status and Disposition: Inpatient.
[2017-03-24] MEDS ORDERED: Apixaban* 5 MG TAB PO ONE (15:00)
[2017-03-24] MEDS: Atorvastatin* 80 MG TAB PO SCH (16:38)
[2017-03-24] MEDS: Docusate CAP* 100 MG PO PRN (20:30)
[2017-03-24] MEDS: Apixaban* 5 MG TAB PO SCH (20:31)
[2017-03-25] MEDS: Acetaminophen TAB* 325 MG PO PRN ×3 (00:09→19:44)
[2017-03-25] MEDS: Levothyroxine TAB* 75 MCG TAB PO SCH (05:22)
[2017-03-25] MEDS: Omeprazole CAP* 20 MG PO SCH (05:22)
[2017-03-25] MEDS: oxyCODONE TAB* 5 MG TAB PO PRN ×4 (05:22→21:15)
[2017-03-25] MEDS: fentaNYL Patch Check Q Shift 1 NOTE SCH ×2 (07:26→18:47)
[2017-03-25] MEDS: Apixaban* 5 MG TAB PO SCH ×2 (08:51→21:14)
[2017-03-25] MEDS: Hydroxychloroquine TAB* 200 MG PO SCH ×2 (08:51→21:30)
[2017-03-25] MEDS: predniSONE TAB* 5 MG PO SCH (08:52)
[2017-03-25] MEDS: Gabapentin CAP(*) 300 MG PO SCH ×2 (08:52→21:13)
[2017-03-25] MEDS: Furosemide TAB* 20 MG PO SCH (08:52)
[2017-03-25] MEDS: Docusate CAP* 100 MG PO PRN (08:52)
[2017-03-25] MEDS: Ramipril CAP* 5 MG PO SCH (08:52)
[2017-03-25] MEDS: Aspirin EC Low Dose* 81 MG TAB.EC PO SCH (08:52)
[2017-03-25] MEDS: buPROPion TAB* 75 MG PO SCH ×2 (08:52→21:15)
[2017-03-25] MEDS: Folic Acid TAB* 1 MG PO SCH (08:52)
[2017-03-25] MEDS: Silver Sulfadiazine 1%* 20 GM TOPICAL SCH (08:53)
[2017-03-25] MEDS: Metoprolol Tartrate TAB* 25 MG PO SCH ×2 (08:53→21:14)
--- NOTE | 2017-03-25 14:09 | PN ---
Subjective Date of Service: 03/25/17 Interval History: HOSPITALIST PROGRESS NOTE Patient seen and examined at bedside. She feels well today, offers no complaints. Family History: Unchanged from Admission Social History: Unchanged from Admission Past Medical History: Unchanged from Admission Objective Active Medications: Acetaminophen (Tylenol Tab*) 650 mg PO Q4H PRN PRN Reason: FEVER/PAIN Last Admin: 03/25/17 08:52 Dose: 650 mg Al Hydrox/Mg Hydrox/Simethicone (Maalox Plus*) 30 ml PO Q6H PRN PRN Reason: INDIGESTION Albuterol (Ventolin 2.5 Mg/3 Ml Neb.Allison*) 2.5 mg INH [id number] AWAKE PRN PRN Reason: sob/wheezing Apixaban (Eliquis*) 10 mg PO BID [facility] Last Admin: 03/25/17 08:51 Dose: 10 mg Aspirin (Aspirin Ec Low Dose*) 81 mg PO DAILY [facility] Last Admin: 03/25/17 08:52 Dose: 81 mg Atorvastatin Calcium (Lipitor*) 80 mg PO 1700 [facility] Last Admin: 03/24/17 16:38 Dose: 80 mg Bupropion HCl (Wellbutrin Tab*) 150 mg PO BID [facility] Last Admin: 03/25/17 08:52 Dose: 150 mg Diclofenac Sodium (Voltaren 1% Gel (Nf)) 1 applic TOPICAL BID PRN; Protocol PRN Reason: PAIN Docusate Sodium (Colace Cap*) 100 mg PO BID PRN PRN Reason: CONSTIPATION Last Admin: 03/25/17 08:52 Dose: 100 mg Fentanyl (Duragesic Patch 50 Mcg/Hr*) 50 mcg TRANSDERM Q72H [facility] Last Admin: 03/24/17 12:43 Dose: 50 mcg Folic Acid (Folvite Tab*) 1 mg PO DAILY [facility] Last Admin: 03/25/17 08:52 Dose: 1 mg Furosemide (Lasix Tab*) 20 mg PO DAILY [facility] Last Admin: 03/25/17 08:52 Dose: 20 mg Gabapentin (Neurontin Cap(*)) 300 mg PO BID [facility] Last Admin: 03/25/17 08:52 Dose: 300 mg Hydroxychloroquine Sulfate (Plaquenil Tab*) 200 mg PO BID [facility] Last Admin: 03/25/17 08:51 Dose: 200 mg Levothyroxine Sodium (Synthroid Tab*) 75 mcg PO DAILY@0600 [facility] Last Admin: 03/25/17 05:22 Dose: 75 mcg Metoprolol Tartrate (Lopressor Tab*) 25 mg PO BID [facility] Last Admin: 03/25/17 08:53 Dose: 25 mg Omeprazole (Prilosec Cap*) 20 mg PO 0600 [facility] Last Admin: 03/25/17 05:22 Dose: 20 mg Ondansetron HCl (Zofran Inj*) 4 mg IV Q4H PRN PRN Reason: NAUSEA/VOMITING Last Admin: 03/23/17 21:02 Dose: 4 mg Oxycodone HCl (Roxycodone Tab*) 5 mg PO Q4H PRN PRN Reason: PAIN Last Admin: 03/25/17 09:17 Dose: 5 mg Pharmacy Profile Note (Fentanyl Patch Check Q Shift) 1 note N/A 0700,1900 [facility] Last Admin: 03/25/17 07:26 Dose: 1 note Prednisone (Deltasone Tab*) 5 mg PO DAILY [facility] Last Admin: 03/25/17 08:52 Dose: 5 mg Ramipril (Altace Cap*) 5 mg PO DAILY [facility] Last Admin: 03/25/17 08:52 Dose: 5 mg Senna (Senokot Tab*) 1 tab PO BID PRN PRN Reason: CONSTIPATION Silver Sulfadiazine (Silvadine 1%*) 1 applic TOPICAL DAILY [facility] Last Admin: 03/25/17 08:53 Dose: 1 applic Vital Signs 03/25/17 03/25/17 03/25/17 07:42 07:47 07:48 Temperature 97.9 F Pulse Rate 73 Respiratory 16 16 16 Rate Blood Pressure 117/48 (mmHg) O2 Sat by Pulse 94 Oximetry Oxygen Devices in Use Now: None Appearance: Pleasant elderly lady lying in bed in [facility]. Eyes: No Scleral Icterus Ears/Nose/Mouth/Throat: Mucous Membranes Moist Neck: Trachea Midline Respiratory: Symmetrical Chest Expansion and Respiratory Effort, Clear to Auscultation Cardiovascular: RRR - Normal S1 and S2 Extremities: No Edema, - - Multiple RA deformities Neurological: Alert and Oriented x 3, NL Muscle Strength and Tone Lines/Tubes/Other Access: Clean, Dry and Intact Peripheral IV Nutrition: Taking PO's Result Diagrams: 03/24/17 04:44 03/24/17 04:44 Assess/Plan/Problems-Billing Assessment: Mrs. Parks is a 71yo F with PMH of RA, osteoporosis with compression fractures , HLD, HTN, left buttock wound, depression, GERD, hypothyroidism, chronic pain, who presented to ED with chest heaviness and dyspnea, found to have acute diastolic CHF exacerbation. - Patient Problems (1) Acute diastolic CHF (congestive heart failure) Comment: - Much improved. - Echo showed EF >65% with diastolic dysfunction. - Responded well to Furosemide - lost 5lbs since admission. - Continue PO Furosemide. - D/c Telemetry. (2) DVT (deep venous thrombosis) Comment: - Patient c/o soreness on her left calf and LE doppler suggests thrombosis of one of the paired posterior tibial veins. - Discussed options with patient and family - as this is a below the knee DVT, we could just monitor for now and repeat her doppler later this week, or pursue treatment, especially since she has symptoms. Patient wants to pursue treatment. We talked about risk and benefits of anticoagulation and different options including Warfarin and NOACs. 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 Patient understands the risks, especially of bleeding, as her was treated with Warfarin for a long time and she is familiar with it. She does not want to take warfarin as she remembers his dietary restrictions and need for frequent blood tests. After reviewing risks and benefits, we decided to start anticoagulation with Eliquis. Plant to treat for at least 3 months. (3) Rheumatoid arthritis Comment: - Stable. - Continue prednisone and hydroxycloroquine. (4) Chronic pain Comment: - Continue Fentanyl patch and oxycodone. (5) DVT prophylaxis Comment: - Eliquis. (6) Buttock wound Comment: - Present on admission. - Awaiting Wound clinic follow up. (7) Physical deconditioning Comment: - PT/OT consults. - Plan for placement for rehab. (8) DNR (do not resuscitate) Status and Disposition: Inpatient.
[2017-03-25] MEDS: Atorvastatin* 80 MG TAB PO SCH (16:31)
[2017-03-26] MEDS: oxyCODONE TAB* 5 MG TAB PO PRN ×5 (01:29→21:34)
[2017-03-26] MEDS: Levothyroxine TAB* 75 MCG TAB PO SCH (05:31)
[2017-03-26] MEDS: Omeprazole CAP* 20 MG PO SCH (05:31)
[2017-03-26] MEDS: fentaNYL Patch Check Q Shift 1 NOTE SCH ×2 (07:11→19:07)
[2017-03-26] MEDS: Apixaban* 5 MG TAB PO SCH ×2 (09:42→21:39)
[2017-03-26] MEDS: Gabapentin CAP(*) 300 MG PO SCH ×2 (09:45→21:37)
[2017-03-26] MEDS: Hydroxychloroquine TAB* 200 MG PO SCH ×2 (09:46→21:40)
[2017-03-26] MEDS: Ramipril CAP* 5 MG PO SCH (09:46)
[2017-03-26] MEDS: buPROPion TAB* 75 MG PO SCH ×2 (09:46→21:39)
[2017-03-26] MEDS: predniSONE TAB* 5 MG PO SCH (09:46)
[2017-03-26] MEDS: Folic Acid TAB* 1 MG PO SCH (09:46)
[2017-03-26] MEDS: Aspirin EC Low Dose* 81 MG TAB.EC PO SCH (09:46)
[2017-03-26] MEDS: Acetaminophen TAB* 325 MG PO PRN ×2 (09:47→14:34)
[2017-03-26] MEDS: Metoprolol Tartrate TAB* 25 MG PO SCH ×2 (09:51→21:40)
[2017-03-26] MEDS: Silver Sulfadiazine 1%* 20 GM TOPICAL SCH (11:52)
--- NOTE | 2017-03-26 16:04 | PN ---
Subjective Date of Service: 03/26/17 Family History: Unchanged from Admission Social History: Unchanged from Admission Past Medical History: Unchanged from Admission Objective Active Medications: Acetaminophen (Tylenol Tab*) 650 mg PO Q4H PRN PRN Reason: FEVER/PAIN Last Admin: 03/26/17 14:34 Dose: 650 mg Al Hydrox/Mg Hydrox/Simethicone (Maalox Plus*) 30 ml PO Q6H PRN PRN Reason: INDIGESTION Albuterol (Ventolin 2.5 Mg/3 Ml Neb.Allison*) 2.5 mg INH [id number] AWAKE PRN PRN Reason: sob/wheezing Apixaban (Eliquis*) 10 mg PO BID [facility] Last Admin: 03/26/17 09:42 Dose: 10 mg Aspirin (Aspirin Ec Low Dose*) 81 mg PO DAILY [facility] Last Admin: 03/26/17 09:46 Dose: 81 mg Atorvastatin Calcium (Lipitor*) 80 mg PO 1700 [facility] Last Admin: 03/25/17 16:31 Dose: 80 mg Bupropion HCl (Wellbutrin Tab*) 150 mg PO BID [facility] Last Admin: 03/26/17 09:46 Dose: 150 mg Diclofenac Sodium (Voltaren 1% Gel (Nf)) 1 applic TOPICAL BID PRN; Protocol PRN Reason: PAIN Docusate Sodium (Colace Cap*) 100 mg PO BID PRN PRN Reason: CONSTIPATION Last Admin: 03/25/17 08:52 Dose: 100 mg Fentanyl (Duragesic Patch 50 Mcg/Hr*) 50 mcg TRANSDERM Q72H [facility] Last Admin: 03/24/17 12:43 Dose: 50 mcg Folic Acid (Folvite Tab*) 1 mg PO DAILY [facility] Last Admin: 03/26/17 09:46 Dose: 1 mg Furosemide (Lasix Tab*) 20 mg PO TuThSa@0900 [facility] Gabapentin (Neurontin Cap(*)) 300 mg PO BID [facility] Last Admin: 03/26/17 09:45 Dose: 300 mg Hydroxychloroquine Sulfate (Plaquenil Tab*) 200 mg PO BID [facility] Last Admin: 03/26/17 09:46 Dose: 200 mg Levothyroxine Sodium (Synthroid Tab*) 75 mcg PO DAILY@0600 [facility] Last Admin: 03/26/17 05:31 Dose: 75 mcg Metoprolol Tartrate (Lopressor Tab*) 25 mg PO BID [facility] Last Admin: 03/26/17 09:51 Dose: Not Given Omeprazole (Prilosec Cap*) 20 mg PO 0600 [facility] Last Admin: 03/26/17 05:31 Dose: 20 mg Ondansetron HCl (Zofran Inj*) 4 mg IV Q4H PRN PRN Reason: NAUSEA/VOMITING Last Admin: 03/23/17 21:02 Dose: 4 mg Oxycodone HCl (Roxycodone Tab*) 5 mg PO Q4H PRN PRN Reason: PAIN Last Admin: 03/26/17 14:34 Dose: 5 mg Pharmacy Profile Note (Fentanyl Patch Check Q Shift) 1 note N/A 0700,1900 [facility] Last Admin: 03/26/17 07:11 Dose: 1 note Prednisone (Deltasone Tab*) 5 mg PO DAILY [facility] Last Admin: 03/26/17 09:46 Dose: 5 mg Ramipril (Altace Cap*) 5 mg PO DAILY [facility] Last Admin: 03/26/17 09:46 Dose: 5 mg Senna (Senokot Tab*) 1 tab PO BID PRN PRN Reason: CONSTIPATION Vital Signs 03/25/17 03/25/17 03/25/17 16:31 18:31 19:57 Temperature 98.2 F Pulse Rate 80 Respiratory 16 18 16 Rate Blood Pressure 102/45 (mmHg) O2 Sat by Pulse 94 Oximetry 03/25/17 03/25/17 03/25/17 20:00 21:13 21:15 Temperature Pulse Rate Respiratory 16 18 18 Rate Blood Pressure (mmHg) O2 Sat by Pulse Oximetry 03/25/17 03/25/17 03/25/17 23:13 23:15 23:20 Temperature 98.0 F Pulse Rate 70 Respiratory 18 18 16 Rate Blood Pressure 121/56 (mmHg) O2 Sat by Pulse 96 Oximetry 03/26/17 03/26/17 03/26/17 01:29 02:53 03:29 Temperature 97.7 F Pulse Rate 75 Respiratory 20 16 16 Rate Blood Pressure 140/72 (mmHg) O2 Sat by Pulse 96 Oximetry 03/26/17 03/26/17 03/26/17 05:32 07:32 07:39 Temperature 97.9 F Pulse Rate 72 Respiratory 18 16 16 Rate Blood Pressure 107/48 (mmHg) O2 Sat by Pulse 93 Oximetry 03/26/17 03/26/17 03/26/17 08:00 09:43 09:45 Temperature Pulse Rate Respiratory 16 16 16 Rate Blood Pressure (mmHg) O2 Sat by Pulse Oximetry 03/26/17 14:34 Temperature Pulse Rate Respiratory 18 Rate Blood Pressure (mmHg) O2 Sat by Pulse Oximetry Oxygen Devices in Use Now: None Appearance: 71 yo F in nAD, AAOx3 Eyes: No Scleral Icterus, PERRLA Ears/Nose/Mouth/Throat: NL Teeth, Lips, Gums, Mucous Membranes Moist Neck: NL Appearance and Movements; NL JVP, Trachea Midline Respiratory: Symmetrical Chest Expansion and Respiratory Effort, Clear to Auscultation Cardiovascular: NL Sounds; No Murmurs; No JVD, RRR Abdominal: NL Sounds; No Tenderness; No Distention, No Hepatosplenomegaly Lymphatic: No Cervical Adenopathy Extremities: No Edema, No Clubbing, Cyanosis, - - severe RA changes in b/l hands and knees Skin: No Nodules or Sclerosis, - - stage 4 sacral decub at 4 cm in diam , 3-4 cm deep, weeping serous liquid, no callulitis noted Neurological: Alert and Oriented x 3 Result Diagrams: 03/24/17 04:44 03/24/17 04:44 Additional Lab and Data: Lab Results 03/22/17 03/22/17 03/22/17 Range/Units 21:53 21:53 21:53 WBC 8.3 (3.5-10.8) 10^3/ul RBC 4.37 (4.0-5.4) 10^6/ul Hgb 13.2 (12.0-16.0) g/dl Hct 40 (35-47) % MCV 92 (80-97) fL MCH 30 (27-31) pg MCHC 33 (31-36) g/dl RDW 13 (10.5-15) % Plt Count 243 (150-450) 10^3/ul MPV 8 (7.4-10.4) um3 Neut % (Auto) 75.9 (38-83) % Lymph % (Auto) 11.4 L (25-47) % [place] % (Auto) 10.1 H (1-9) % Eos % (Auto) 2.1 (0-6) % Baso % (Auto) 0.5 (0-2) % Absolute Neuts (auto) 6.3 (1.5-7.7) 10^3/ul Absolute Lymphs (auto) 0.9 L (1.0-4.8) 10^3/ul Absolute Monos (auto) 0.8 (0-0.8) 10^3/ul Absolute Eos (auto) 0.2 (0-0.6) 10^3/ul Absolute Basos (auto) 0 (0-0.2) 10^3/ul Absolute Nucleated RBC 0.01 10^3/ul Nucleated RBC % 0.1 Sodium 133 (133-145) mmol/L Potassium 4.4 (3.5-5.0) mmol/L Chloride 100 L (101-111) mmol/L Carbon Dioxide 26 (22-32) mmol/L Anion Gap 7 (2-11) mmol/L BUN 14 (6-24) mg/dL Creatinine 0.50 L (0.51-0.95) mg/dL Est GFR ( Amer) 155.5 (>60) Est GFR (Non-Af Amer) 120.9 (>60) BUN/Creatinine Ratio 28.0 H (8-20) Glucose 76 (70-100) mg/dL Lactic Acid 1.6 (0.5-2.0) mmol/L Calcium 8.6 (8.6-10.3) mg/dL Total Bilirubin 0.60 (0.2-1.0) mg/dL AST 25 (13-39) U/L ALT 15 (7-52) U/L Alkaline Phosphatase 137 H (34-104) U/L Troponin I 0.03 (<0.04) ng/mL C-Reactive Protein 107.10 H (< 5.00) mg/L B-Natriuretic Peptide ( - 100) pg/mL Total Protein 6.2 L (6.4-8.9) g/dL Albumin 2.9 L (3.2-5.2) g/dL Globulin 3.3 (2-4) g/dL Albumin/Globulin Ratio 0.9 L (1-3) 03/22/17 Range/Units 21:53 WBC (3.5-10.8) 10^3/ul RBC (4.0-5.4) 10^6/ul Hgb (12.0-16.0) g/dl Hct (35-47) % MCV (80-97) fL MCH (27-31) pg MCHC (31-36) g/dl RDW (10.5-15) % Plt Count (150-450) 10^3/ul MPV (7.4-10.4) um3 Neut % (Auto) (38-83) % Lymph % (Auto) (25-47) % [place] % (Auto) (1-9) % Eos % (Auto) (0-6) % Baso % (Auto) (0-2) % Absolute Neuts (auto) (1.5-7.7) 10^3/ul Absolute Lymphs (auto) (1.0-4.8) 10^3/ul Absolute Monos (auto) (0-0.8) 10^3/ul Absolute Eos (auto) (0-0.6) 10^3/ul Absolute Basos (auto) (0-0.2) 10^3/ul Absolute Nucleated RBC 10^3/ul Nucleated RBC % Sodium (133-145) mmol/L Potassium (3.5-5.0) mmol/L Chloride (101-111) mmol/L Carbon Dioxide (22-32) mmol/L Anion Gap (2-11) mmol/L BUN (6-24) mg/dL Creatinine (0.51-0.95) mg/dL Est GFR ( Amer) (>60) Est GFR (Non-Af Amer) (>60) BUN/Creatinine Ratio (8-20) Glucose (70-100) mg/dL Lactic Acid (0.5-2.0) mmol/L Calcium (8.6-10.3) mg/dL Total Bilirubin (0.2-1.0) mg/dL AST (13-39) U/L ALT (7-52) U/L Alkaline Phosphatase (34-104) U/L Troponin I (<0.04) ng/mL C-Reactive Protein (< 5.00) mg/L B-Natriuretic Peptide 230 H ( - 100) pg/mL Total Protein (6.4-8.9) g/dL Albumin (3.2-5.2) g/dL Globulin (2-4) g/dL Albumin/Globulin Ratio (1-3) Assess/Plan/Problems-Billing Assessment: Mrs. Parks is a 71yo F with PMH of RA, osteoporosis with compression fractures , HLD, HTN, left buttock wound, depression, GERD, hypothyroidism, chronic pain, who presented to ED with chest heaviness and dyspnea, found to have acute diastolic CHF exacerbation. - Patient Problems (1) Acute diastolic CHF (congestive heart failure) Comment: - Much improved. - Echo showed EF >65% with diastolic dysfunction. - Responded well to Furosemide - Continue PO Furosemide. (2) DVT (deep venous thrombosis) Comment: LE doppler suggests acute thrombosis of one of the paired posterior tibial veins. - pt decided on anticoagulation with Eliquis. Plant to treat for at least 3 months. (3) Buttock wound Comment: Stage 4. appreciate wound care consult. Apply silver collagen dressings Q3Days H/o failed cadaveric skin transplant in 03/01 (4) Chronic pain Comment: - Continue Fentanyl patch and oxycodone. (5) Rheumatoid arthritis Comment: - Stable. - Continue prednisone and hydroxycloroquine. (6) Physical deconditioning Comment: - PT/OT consults. - Plan for placement for rehab-[facility] on Wednesday. (7) DVT prophylaxis Comment: - Eliquis. Status and Disposition: Inpatient.
[2017-03-26] MEDS: Atorvastatin* 80 MG TAB PO SCH (19:07)
[2017-03-27] MEDS: oxyCODONE TAB* 5 MG TAB PO PRN ×5 (03:55→21:53)
[2017-03-27] MEDS: Levothyroxine TAB* 75 MCG TAB PO SCH (06:37)
[2017-03-27] MEDS: Omeprazole CAP* 20 MG PO SCH (06:37)
[2017-03-27 06:38] LABS: BUN/Creatinine Ratio 20.8 (8-20); Calcium 8.7 mg/dL (8.6-10.3); EGFR African American 145.4 (>60); EGFR Non-African American 113.1 (>60); Potassium 4.2 mmol/L (3.5-5.0)
[2017-03-27] MEDS: fentaNYL Patch Check Q Shift 1 NOTE SCH ×2 (07:12→19:11)
[2017-03-27] MEDS: Apixaban* 5 MG TAB PO SCH ×2 (08:57→21:40)
[2017-03-27] MEDS: Aspirin EC Low Dose* 81 MG TAB.EC PO SCH (08:57)
[2017-03-27] MEDS: Hydroxychloroquine TAB* 200 MG PO SCH ×2 (08:57→21:39)
[2017-03-27] MEDS: Ramipril CAP* 5 MG PO SCH (08:57)
[2017-03-27] MEDS: Metoprolol Tartrate TAB* 25 MG PO SCH ×2 (08:57→21:41)
[2017-03-27] MEDS: predniSONE TAB* 5 MG PO SCH (08:58)
[2017-03-27] MEDS: buPROPion TAB* 75 MG PO SCH ×2 (08:58→21:40)
[2017-03-27] MEDS: Gabapentin CAP(*) 300 MG PO SCH ×2 (08:59→21:39)
[2017-03-27] MEDS: Folic Acid TAB* 1 MG PO SCH (08:59)
[2017-03-27] MEDS ORDERED: Furosemide TAB* 20 MG PO SCH (09:00)
[2017-03-27] MEDS: fentaNYL PATCH 50 MCG/HR TRANSDERM SCH (13:14)
[2017-03-27] MEDS ORDERED: Saline NASAL SPRAY 0.65%* BTL BOTH NARES PRN (13:58)
--- NOTE | 2017-03-27 14:02 | PN ---
Subjective Date of Service: 03/27/17 Interval History: pt c/o having poor appetite and her stomach being "queasy" Family History: Unchanged from Admission Social History: Unchanged from Admission Past Medical History: Unchanged from Admission Objective Active Medications: Acetaminophen (Tylenol Tab*) 650 mg PO Q4H PRN PRN Reason: FEVER/PAIN Last Admin: 03/26/17 14:34 Dose: 650 mg Al Hydrox/Mg Hydrox/Simethicone (Maalox Plus*) 30 ml PO Q6H PRN PRN Reason: INDIGESTION Albuterol (Ventolin 2.5 Mg/3 Ml Neb.Allison*) 2.5 mg INH [id number] AWAKE PRN PRN Reason: sob/wheezing Apixaban (Eliquis*) 10 mg PO BID [facility] Last Admin: 03/27/17 08:57 Dose: 10 mg Aspirin (Aspirin Ec Low Dose*) 81 mg PO DAILY [facility] Last Admin: 03/27/17 08:57 Dose: 81 mg Atorvastatin Calcium (Lipitor*) 80 mg PO 1700 [facility] Last Admin: 03/26/17 19:07 Dose: 80 mg Bupropion HCl (Wellbutrin Tab*) 150 mg PO BID [facility] Last Admin: 03/27/17 08:58 Dose: 150 mg Diclofenac Sodium (Voltaren 1% Gel (Nf)) 1 applic TOPICAL BID PRN; Protocol PRN Reason: PAIN Docusate Sodium (Colace Cap*) 100 mg PO BID PRN PRN Reason: CONSTIPATION Last Admin: 03/25/17 08:52 Dose: 100 mg Fentanyl (Duragesic Patch 50 Mcg/Hr*) 50 mcg TRANSDERM Q72H [facility] Last Admin: 03/27/17 13:14 Dose: 50 mcg Folic Acid (Folvite Tab*) 1 mg PO DAILY [facility] Last Admin: 03/27/17 08:59 Dose: 1 mg Furosemide (Lasix Tab*) 20 mg PO TuThSa@0900 [facility] Last Admin: 03/27/17 09:10 Dose: 20 mg Gabapentin (Neurontin Cap(*)) 300 mg PO BID [facility] Last Admin: 03/27/17 08:59 Dose: 300 mg Hydroxychloroquine Sulfate (Plaquenil Tab*) 200 mg PO BID [facility] Last Admin: 03/27/17 08:57 Dose: 200 mg Levothyroxine Sodium (Synthroid Tab*) 75 mcg PO DAILY@0600 [facility] Last Admin: 03/27/17 06:37 Dose: 75 mcg Metoprolol Tartrate (Lopressor Tab*) 25 mg PO BID [facility] Last Admin: 03/27/17 08:57 Dose: 25 mg Omeprazole (Prilosec Cap*) 20 mg PO 0600 [facility] Last Admin: 03/27/17 06:37 Dose: 20 mg Ondansetron HCl (Zofran Inj*) 4 mg IV Q4H PRN PRN Reason: NAUSEA/VOMITING Last Admin: 03/23/17 21:02 Dose: 4 mg Oxycodone HCl (Roxycodone Tab*) 5 mg PO Q4H PRN PRN Reason: PAIN Last Admin: 03/27/17 13:14 Dose: 5 mg Pharmacy Profile Note (Fentanyl Patch Check Q Shift) 1 note N/A 0700,1900 [facility] Last Admin: 03/27/17 07:12 Dose: 1 note Prednisone (Deltasone Tab*) 5 mg PO DAILY [facility] Last Admin: 03/27/17 08:58 Dose: 5 mg Ramipril (Altace Cap*) 5 mg PO DAILY [facility] Last Admin: 03/27/17 08:57 Dose: 5 mg Senna (Senokot Tab*) 1 tab PO BID PRN PRN Reason: CONSTIPATION Sodium Chloride (Sodium Chloride 0.65% Nasal [place]*) 1 spray BOTH NARES Q4H PRN PRN Reason: CONGESTION Sucralfate (Carafate*) 1 gm PO [facility] Vital Signs 03/26/17 03/26/17 03/26/17 14:34 15:10 16:34 Temperature 98.4 F Pulse Rate 87 Respiratory 18 12 16 Rate Blood Pressure 98/55 (mmHg) O2 Sat by Pulse 94 Oximetry 03/26/17 03/26/17 03/26/17 19:42 20:00 21:34 Temperature 98.6 F Pulse Rate 90 Respiratory 16 16 13 Rate Blood Pressure 125/56 (mmHg) O2 Sat by Pulse 95 Oximetry 03/26/17 03/26/17 03/26/17 21:37 23:34 23:37 Temperature Pulse Rate Respiratory 13 15 14 Rate Blood Pressure (mmHg) O2 Sat by Pulse Oximetry 03/27/17 03/27/17 03/27/17 00:11 03:21 03:55 Temperature 97.8 F 98.3 F Pulse Rate 77 78 Respiratory 16 16 15 Rate Blood Pressure 112/52 115/51 (mmHg) O2 Sat by Pulse 97 93 Oximetry 03/27/17 03/27/17 03/27/17 05:55 07:25 08:05 Temperature 98.2 F Pulse Rate 90 Respiratory 15 20 18 Rate Blood Pressure 155/60 (mmHg) O2 Sat by Pulse 91 Oximetry 03/27/17 03/27/17 03/27/17 08:56 08:59 10:56 Temperature Pulse Rate Respiratory 20 20 18 Rate Blood Pressure (mmHg) O2 Sat by Pulse Oximetry 03/27/17 03/27/17 11:30 13:14 Temperature 98.8 F Pulse Rate 80 Respiratory 18 18 Rate Blood Pressure 115/53 (mmHg) O2 Sat by Pulse 98 Oximetry Oxygen Devices in Use Now: None Appearance: 71 yo f in nAD, aAOx3 Eyes: No Scleral Icterus, PERRLA Ears/Nose/Mouth/Throat: NL Teeth, Lips, Gums, Mucous Membranes Moist Neck: NL Appearance and Movements; NL JVP, Trachea Midline Respiratory: Symmetrical Chest Expansion and Respiratory Effort, Clear to Auscultation Cardiovascular: NL Sounds; No Murmurs; No JVD, RRR Abdominal: NL Sounds; No Tenderness; No Distention Lymphatic: No Cervical Adenopathy Extremities: No Edema, No Clubbing, Cyanosis, - - severe RA changes in b/l hands and knees Skin: No Nodules or Sclerosis, - - sacral decub not examined today Neurological: Alert and Oriented x 3, NL Muscle Strength and Tone Result Diagrams: 03/24/17 04:44 03/27/17 05:01 Additional Lab and Data: Lab Results 03/22/17 03/22/17 03/22/17 Range/Units 21:53 21:53 21:53 WBC 8.3 (3.5-10.8) 10^3/ul RBC 4.37 (4.0-5.4) 10^6/ul Hgb 13.2 (12.0-16.0) g/dl Hct 40 (35-47) % MCV 92 (80-97) fL MCH 30 (27-31) pg MCHC 33 (31-36) g/dl RDW 13 (10.5-15) % Plt Count 243 (150-450) 10^3/ul MPV 8 (7.4-10.4) um3 Neut % (Auto) 75.9 (38-83) % Lymph % (Auto) 11.4 L (25-47) % [place] % (Auto) 10.1 H (1-9) % Eos % (Auto) 2.1 (0-6) % Baso % (Auto) 0.5 (0-2) % Absolute Neuts (auto) 6.3 (1.5-7.7) 10^3/ul Absolute Lymphs (auto) 0.9 L (1.0-4.8) 10^3/ul Absolute Monos (auto) 0.8 (0-0.8) 10^3/ul Absolute Eos (auto) 0.2 (0-0.6) 10^3/ul Absolute Basos (auto) 0 (0-0.2) 10^3/ul Absolute Nucleated RBC 0.01 10^3/ul Nucleated RBC % 0.1 Sodium 133 (133-145) mmol/L Potassium 4.4 (3.5-5.0) mmol/L Chloride 100 L (101-111) mmol/L Carbon Dioxide 26 (22-32) mmol/L Anion Gap 7 (2-11) mmol/L BUN 14 (6-24) mg/dL Creatinine 0.50 L (0.51-0.95) mg/dL Est GFR ( Amer) 155.5 (>60) Est GFR (Non-Af Amer) 120.9 (>60) BUN/Creatinine Ratio 28.0 H (8-20) Glucose 76 (70-100) mg/dL Lactic Acid 1.6 (0.5-2.0) mmol/L Calcium 8.6 (8.6-10.3) mg/dL Total Bilirubin 0.60 (0.2-1.0) mg/dL AST 25 (13-39) U/L ALT 15 (7-52) U/L Alkaline Phosphatase 137 H (34-104) U/L Troponin I 0.03 (<0.04) ng/mL C-Reactive Protein 107.10 H (< 5.00) mg/L B-Natriuretic Peptide ( - 100) pg/mL Total Protein 6.2 L (6.4-8.9) g/dL Albumin 2.9 L (3.2-5.2) g/dL Globulin 3.3 (2-4) g/dL Albumin/Globulin Ratio 0.9 L (1-3) 03/22/17 Range/Units 21:53 WBC (3.5-10.8) 10^3/ul RBC (4.0-5.4) 10^6/ul Hgb (12.0-16.0) g/dl Hct (35-47) % MCV (80-97) fL MCH (27-31) pg MCHC (31-36) g/dl RDW (10.5-15) % Plt Count (150-450) 10^3/ul MPV (7.4-10.4) um3 Neut % (Auto) (38-83) % Lymph % (Auto) (25-47) % [place] % (Auto) (1-9) % Eos % (Auto) (0-6) % Baso % (Auto) (0-2) % Absolute Neuts (auto) (1.5-7.7) 10^3/ul Absolute Lymphs (auto) (1.0-4.8) 10^3/ul Absolute Monos (auto) (0-0.8) 10^3/ul Absolute Eos (auto) (0-0.6) 10^3/ul Absolute Basos (auto) (0-0.2) 10^3/ul Absolute Nucleated RBC 10^3/ul Nucleated RBC % Sodium (133-145) mmol/L Potassium (3.5-5.0) mmol/L Chloride (101-111) mmol/L Carbon Dioxide (22-32) mmol/L Anion Gap (2-11) mmol/L BUN (6-24) mg/dL Creatinine (0.51-0.95) mg/dL Est GFR ( Amer) (>60) Est GFR (Non-Af Amer) (>60) BUN/Creatinine Ratio (8-20) Glucose (70-100) mg/dL Lactic Acid (0.5-2.0) mmol/L Calcium (8.6-10.3) mg/dL Total Bilirubin (0.2-1.0) mg/dL AST (13-39) U/L ALT (7-52) U/L Alkaline Phosphatase (34-104) U/L Troponin I (<0.04) ng/mL C-Reactive Protein (< 5.00) mg/L B-Natriuretic Peptide 230 H ( - 100) pg/mL Total Protein (6.4-8.9) g/dL Albumin (3.2-5.2) g/dL Globulin (2-4) g/dL Albumin/Globulin Ratio (1-3) Assess/Plan/Problems-Billing Assessment: Mrs. Parks is a 71yo F with PMH of RA, osteoporosis with compression fractures , HLD, HTN, left buttock wound, depression, GERD, hypothyroidism, chronic pain, who presented to ED with chest heaviness and dyspnea, found to have acute diastolic CHF exacerbation. - Patient Problems (1) Acute diastolic CHF (congestive heart failure) Comment: - Much improved. - Echo showed EF >65% with diastolic dysfunction. - Responded well to Furosemide - Continue PO Furosemide. (2) DVT (deep venous thrombosis) Comment: LE doppler suggests acute thrombosis of one of the paired posterior tibial veins. - pt decided on anticoagulation with Eliquis. Plant to treat for at least 3 months. (3) Buttock wound Comment: Stage 4. appreciate wound care consult. Apply silver collagen dressings Q3Days H/o failed cadaveric skin transplant in 03/01 (4) Chronic pain Comment: - Continue Fentanyl patch and oxycodone. (5) Rheumatoid arthritis Comment: - Stable. - Continue prednisone and hydroxycloroquine. (6) Physical deconditioning Comment: - PT/OT consults. - Plan for placement for rehab-[facility] on Wednesday. (7) Poor appetite Comment: cont Ensure will start Carafate for dyspepsia symptoms (8) DVT prophylaxis Comment: - Eliquis. Status and Disposition: Inpatient. STR at [facility] -Wednesday
[2017-03-27] MEDS: Sucralfate TAB* 1 GM PO SCH (15:30)
[2017-03-27] MEDS: Atorvastatin* 80 MG TAB PO SCH (17:21)
[2017-03-28] MEDS: Acetaminophen TAB* 325 MG PO PRN (00:06)
[2017-03-28] MEDS: Levothyroxine TAB* 75 MCG TAB PO SCH (04:56)
[2017-03-28] MEDS: Omeprazole CAP* 20 MG PO SCH (04:56)
[2017-03-28] MEDS: oxyCODONE TAB* 5 MG TAB PO PRN ×4 (05:08→20:01)
[2017-03-28] MEDS: fentaNYL Patch Check Q Shift 1 NOTE SCH ×2 (06:33→18:51)
[2017-03-28] MEDS: Sucralfate TAB* 1 GM PO SCH ×3 (07:24→15:33)
[2017-03-28] MEDS: Hydroxychloroquine TAB* 200 MG PO SCH ×2 (08:45→20:01)
[2017-03-28] MEDS: buPROPion TAB* 75 MG PO SCH ×2 (08:45→20:02)
[2017-03-28] MEDS: Apixaban* 5 MG TAB PO SCH ×2 (08:45→20:01)
[2017-03-28] MEDS: predniSONE TAB* 5 MG PO SCH (08:46)
[2017-03-28] MEDS: Gabapentin CAP(*) 300 MG PO SCH ×2 (08:46→20:01)
[2017-03-28] MEDS: Ramipril CAP* 5 MG PO SCH (08:47)
[2017-03-28] MEDS: Metoprolol Tartrate TAB* 25 MG PO SCH ×2 (08:47→20:02)
[2017-03-28] MEDS: Folic Acid TAB* 1 MG PO SCH (08:47)
[2017-03-28] MEDS: Aspirin EC Low Dose* 81 MG TAB.EC PO SCH (08:48)
--- NOTE | 2017-03-28 14:04 | PN ---
Subjective Date of Service: 03/28/17 Interval History: pt feels well, ate big breakfast today Family History: Unchanged from Admission Social History: Unchanged from Admission Past Medical History: Unchanged from Admission Objective Active Medications: Acetaminophen (Tylenol Tab*) 650 mg PO Q4H PRN PRN Reason: FEVER/PAIN Last Admin: 03/28/17 00:06 Dose: 650 mg Al Hydrox/Mg Hydrox/Simethicone (Maalox Plus*) 30 ml PO Q6H PRN PRN Reason: INDIGESTION Albuterol (Ventolin 2.5 Mg/3 Ml Neb.Allison*) 2.5 mg INH [id number] AWAKE PRN PRN Reason: sob/wheezing Apixaban (Eliquis*) 10 mg PO BID [facility] Stop: 03/31/17 09:01 Last Admin: 03/28/17 08:45 Dose: 10 mg Aspirin (Aspirin Ec Low Dose*) 81 mg PO DAILY [facility] Last Admin: 03/28/17 08:48 Dose: 81 mg Atorvastatin Calcium (Lipitor*) 80 mg PO 1700 [facility] Last Admin: 03/27/17 17:21 Dose: 80 mg Bupropion HCl (Wellbutrin Tab*) 150 mg PO BID [facility] Last Admin: 03/28/17 08:45 Dose: 150 mg Diclofenac Sodium (Voltaren 1% Gel (Nf)) 1 applic TOPICAL BID PRN; Protocol PRN Reason: PAIN Last Admin: 03/27/17 21:38 Dose: 1 applic Docusate Sodium (Colace Cap*) 100 mg PO BID PRN PRN Reason: CONSTIPATION Last Admin: 03/25/17 08:52 Dose: 100 mg Fentanyl (Duragesic Patch 50 Mcg/Hr*) 50 mcg TRANSDERM Q72H [facility] Last Admin: 03/27/17 13:14 Dose: 50 mcg Folic Acid (Folvite Tab*) 1 mg PO DAILY [facility] Last Admin: 03/28/17 08:47 Dose: 1 mg Furosemide (Lasix Tab*) 20 mg PO TuThSa@0900 [facility] Last Admin: 03/27/17 09:10 Dose: 20 mg Gabapentin (Neurontin Cap(*)) 300 mg PO BID [facility] Last Admin: 03/28/17 08:46 Dose: 300 mg Hydroxychloroquine Sulfate (Plaquenil Tab*) 200 mg PO BID [facility] Last Admin: 03/28/17 08:45 Dose: 200 mg Levothyroxine Sodium (Synthroid Tab*) 75 mcg PO DAILY@0600 [facility] Last Admin: 03/28/17 04:56 Dose: 75 mcg Metoprolol Tartrate (Lopressor Tab*) 25 mg PO BID [facility] Last Admin: 03/28/17 08:47 Dose: 25 mg Omeprazole (Prilosec Cap*) 20 mg PO 0600 [facility] Last Admin: 03/28/17 04:56 Dose: 20 mg Ondansetron HCl (Zofran Inj*) 4 mg IV Q4H PRN PRN Reason: NAUSEA/VOMITING Last Admin: 03/23/17 21:02 Dose: 4 mg Oxycodone HCl (Roxycodone Tab*) 5 mg PO Q4H PRN PRN Reason: PAIN Last Admin: 03/28/17 09:57 Dose: 5 mg Pharmacy Profile Note (Fentanyl Patch Check Q Shift) 1 note N/A 0700,1900 [facility] Last Admin: 03/28/17 06:33 Dose: 1 note Prednisone (Deltasone Tab*) 5 mg PO DAILY [facility] Last Admin: 03/28/17 08:46 Dose: 5 mg Ramipril (Altace Cap*) 5 mg PO DAILY [facility] Last Admin: 03/28/17 08:47 Dose: 5 mg Senna (Senokot Tab*) 1 tab PO BID PRN PRN Reason: CONSTIPATION Sodium Chloride (Sodium Chloride 0.65% Nasal [place]*) 1 spray BOTH NARES Q4H PRN PRN Reason: CONGESTION Sucralfate (Carafate*) 1 gm PO AC [facility] Last Admin: 03/28/17 11:08 Dose: 1 gm Vital Signs 03/27/17 03/27/17 03/27/17 14:52 15:59 17:21 Temperature 98.5 F Pulse Rate 85 Respiratory 16 16 15 Rate Blood Pressure 96/51 (mmHg) O2 Sat by Pulse 94 Oximetry 03/27/17 03/27/17 03/27/17 19:21 19:50 20:00 Temperature 98.4 F Pulse Rate 83 Respiratory 16 18 18 Rate Blood Pressure 105/48 (mmHg) O2 Sat by Pulse 94 Oximetry 03/27/17 03/27/17 03/27/17 21:39 21:53 23:35 Temperature 97.7 F Pulse Rate 74 Respiratory 16 15 18 Rate Blood Pressure 137/56 (mmHg) O2 Sat by Pulse 99 Oximetry 03/27/17 03/27/17 03/28/17 23:39 23:53 04:46 Temperature 97.5 F Pulse Rate 79 Respiratory 15 15 18 Rate Blood Pressure 155/68 (mmHg) O2 Sat by Pulse 98 Oximetry 03/28/17 03/28/17 03/28/17 05:08 07:08 07:25 Temperature Pulse Rate Respiratory 18 18 18 Rate Blood Pressure (mmHg) O2 Sat by Pulse Oximetry 03/28/17 03/28/17 03/28/17 07:29 08:46 09:57 Temperature 97.7 F Pulse Rate 79 Respiratory 20 18 20 Rate Blood Pressure 121/57 (mmHg) O2 Sat by Pulse 96 Oximetry 03/28/17 03/28/17 03/28/17 10:46 11:00 11:57 Temperature 98.0 F Pulse Rate 72 Respiratory 16 18 17 Rate Blood Pressure 112/48 (mmHg) O2 Sat by Pulse 96 Oximetry 03/28/17 12:46 Temperature Pulse Rate Respiratory 16 Rate Blood Pressure (mmHg) O2 Sat by Pulse Oximetry Oxygen Devices in Use Now: None Appearance: 71 yo f in nAD, AAOx3 Eyes: No Scleral Icterus, PERRLA Ears/Nose/Mouth/Throat: NL Teeth, Lips, Gums, Mucous Membranes Moist Neck: NL Appearance and Movements; NL JVP, Trachea Midline Respiratory: Symmetrical Chest Expansion and Respiratory Effort, Clear to Auscultation Cardiovascular: NL Sounds; No Murmurs; No JVD, RRR Abdominal: NL Sounds; No Tenderness; No Distention, No Hepatosplenomegaly Lymphatic: No Cervical Adenopathy Extremities: No Edema, No Clubbing, Cyanosis Skin: No Nodules or Sclerosis, - - sacral decub stage 4 at 3-4 cm in diam Neurological: Alert and Oriented x 3, - - ROM in hand limited due to severe RA changes Result Diagrams: 03/24/17 04:44 03/27/17 05:01 Additional Lab and Data: Lab Results 03/22/17 03/22/17 03/22/17 Range/Units 21:53 21:53 21:53 WBC 8.3 (3.5-10.8) 10^3/ul RBC 4.37 (4.0-5.4) 10^6/ul Hgb 13.2 (12.0-16.0) g/dl Hct 40 (35-47) % MCV 92 (80-97) fL MCH 30 (27-31) pg MCHC 33 (31-36) g/dl RDW 13 (10.5-15) % Plt Count 243 (150-450) 10^3/ul MPV 8 (7.4-10.4) um3 Neut % (Auto) 75.9 (38-83) % Lymph % (Auto) 11.4 L (25-47) % [place] % (Auto) 10.1 H (1-9) % Eos % (Auto) 2.1 (0-6) % Baso % (Auto) 0.5 (0-2) % Absolute Neuts (auto) 6.3 (1.5-7.7) 10^3/ul Absolute Lymphs (auto) 0.9 L (1.0-4.8) 10^3/ul Absolute Monos (auto) 0.8 (0-0.8) 10^3/ul Absolute Eos (auto) 0.2 (0-0.6) 10^3/ul Absolute Basos (auto) 0 (0-0.2) 10^3/ul Absolute Nucleated RBC 0.01 10^3/ul Nucleated RBC % 0.1 Sodium 133 (133-145) mmol/L Potassium 4.4 (3.5-5.0) mmol/L Chloride 100 L (101-111) mmol/L Carbon Dioxide 26 (22-32) mmol/L Anion Gap 7 (2-11) mmol/L BUN 14 (6-24) mg/dL Creatinine 0.50 L (0.51-0.95) mg/dL Est GFR ( Amer) 155.5 (>60) Est GFR (Non-Af Amer) 120.9 (>60) BUN/Creatinine Ratio 28.0 H (8-20) Glucose 76 (70-100) mg/dL Lactic Acid 1.6 (0.5-2.0) mmol/L Calcium 8.6 (8.6-10.3) mg/dL Total Bilirubin 0.60 (0.2-1.0) mg/dL AST 25 (13-39) U/L ALT 15 (7-52) U/L Alkaline Phosphatase 137 H (34-104) U/L Troponin I 0.03 (<0.04) ng/mL C-Reactive Protein 107.10 H (< 5.00) mg/L B-Natriuretic Peptide ( - 100) pg/mL Total Protein 6.2 L (6.4-8.9) g/dL Albumin 2.9 L (3.2-5.2) g/dL Globulin 3.3 (2-4) g/dL Albumin/Globulin Ratio 0.9 L (1-3) 03/22/17 Range/Units 21:53 WBC (3.5-10.8) 10^3/ul RBC (4.0-5.4) 10^6/ul Hgb (12.0-16.0) g/dl Hct (35-47) % MCV (80-97) fL MCH (27-31) pg MCHC (31-36) g/dl RDW (10.5-15) % Plt Count (150-450) 10^3/ul MPV (7.4-10.4) um3 Neut % (Auto) (38-83) % Lymph % (Auto) (25-47) % [place] % (Auto) (1-9) % Eos % (Auto) (0-6) % Baso % (Auto) (0-2) % Absolute Neuts (auto) (1.5-7.7) 10^3/ul Absolute Lymphs (auto) (1.0-4.8) 10^3/ul Absolute Monos (auto) (0-0.8) 10^3/ul Absolute Eos (auto) (0-0.6) 10^3/ul Absolute Basos (auto) (0-0.2) 10^3/ul Absolute Nucleated RBC 10^3/ul Nucleated RBC % Sodium (133-145) mmol/L Potassium (3.5-5.0) mmol/L Chloride (101-111) mmol/L Carbon Dioxide (22-32) mmol/L Anion Gap (2-11) mmol/L BUN (6-24) mg/dL Creatinine (0.51-0.95) mg/dL Est GFR ( Amer) (>60) Est GFR (Non-Af Amer) (>60) BUN/Creatinine Ratio (8-20) Glucose (70-100) mg/dL Lactic Acid (0.5-2.0) mmol/L Calcium (8.6-10.3) mg/dL Total Bilirubin (0.2-1.0) mg/dL AST (13-39) U/L ALT (7-52) U/L Alkaline Phosphatase (34-104) U/L Troponin I (<0.04) ng/mL C-Reactive Protein (< 5.00) mg/L B-Natriuretic Peptide 230 H ( - 100) pg/mL Total Protein (6.4-8.9) g/dL Albumin (3.2-5.2) g/dL Globulin (2-4) g/dL Albumin/Globulin Ratio (1-3) Assess/Plan/Problems-Billing Assessment: Mrs. Parks is a 71yo F with PMH of RA, osteoporosis with compression fractures , HLD, HTN, left buttock wound, depression, GERD, hypothyroidism, chronic pain, who presented to ED with chest heaviness and dyspnea, found to have acute diastolic CHF exacerbation. - Patient Problems (1) Acute diastolic CHF (congestive heart failure) Comment: - Much improved. - Echo showed EF >65% with diastolic dysfunction. - Responded well to Furosemide - Continue PO Furosemide. (2) DVT (deep venous thrombosis) Comment: LE doppler suggests acute thrombosis of one of the paired posterior tibial veins. - pt decided on anticoagulation with Eliquis. Plan to treat for at least 3 months. (3) Buttock wound Comment: Stage 4. appreciate wound care consult. Apply silver collagen dressings Q3Days H/o failed cadaveric skin transplant in 03/01 (4) Chronic pain Comment: - Continue Fentanyl patch and oxycodone. (5) Rheumatoid arthritis Comment: - Stable. - Continue prednisone and hydroxycloroquine. (6) Physical deconditioning Comment: - PT/OT consults. - Plan for placement for rehab-[facility] on Wednesday. (7) Poor appetite Comment: cont Ensure Carafate for dyspepsia symptoms (8) DVT prophylaxis Comment: - Eliquis. Status and Disposition: Inpatient. STR at [facility] -Wednesday
[2017-03-28] MEDS: Atorvastatin* 80 MG TAB PO SCH (17:13)
[2017-03-29] MEDS: oxyCODONE TAB* 5 MG TAB PO PRN ×3 (00:01→11:15)
[2017-03-29] MEDS: Levothyroxine TAB* 75 MCG TAB PO SCH (05:13)
[2017-03-29] MEDS: Omeprazole CAP* 20 MG PO SCH (05:13)
[2017-03-29] MEDS: fentaNYL Patch Check Q Shift 1 NOTE SCH (06:41)
[2017-03-29] MEDS: Metoprolol Tartrate TAB* 25 MG PO SCH (07:59)
[2017-03-29] MEDS: buPROPion TAB* 75 MG PO SCH (08:02)
[2017-03-29] MEDS: Sucralfate TAB* 1 GM PO SCH ×2 (08:02→11:15)
[2017-03-29] MEDS: Aspirin EC Low Dose* 81 MG TAB.EC PO SCH (08:02)
[2017-03-29] MEDS: Gabapentin CAP(*) 300 MG PO SCH (08:03)
[2017-03-29] MEDS: Hydroxychloroquine TAB* 200 MG PO SCH (08:03)
[2017-03-29] MEDS: Ramipril CAP* 5 MG PO SCH (08:03)
[2017-03-29] MEDS: Folic Acid TAB* 1 MG PO SCH (08:03)
[2017-03-29] MEDS: predniSONE TAB* 5 MG PO SCH (08:04)
[2017-03-29 08:10] VITALS: BP 121/53
[2017-03-29] MEDS: Apixaban* 5 MG TAB PO SCH (08:14)
[2017-03-29] MEDS: Docusate CAP* 100 MG PO PRN (11:15)
--- NOTE | 2017-03-29 11:28 | DS ---
CC: Dr. Fernando Fuller; [facility] * DISCHARGE SUMMARY: DATE OF ADMISSION: 03/23/17 DATE OF DISCHARGE: 03/29/17 PRIMARY CARE PROVIDER: Dr. Fernando Fuller. DISCHARGE DIAGNOSES: 1. Acute diastolic congestive heart failure. 2. Chronic sacral/buttock wound. 3. Acute left [id number] deep venous thrombosis. SECONDARY DIAGNOSES: 1. History of severe rheumatoid arthritis with severe arthritic changes in joints of bilateral hands and knees. 2. History of compression fractures. 3. History of coronary artery disease, status post myocardial infarction and percutaneous coronary intervention in the past. 4. Osteoporosis. 5. Hyperlipidemia. 6. Hypertension. 7. History of chronic sacral left buttock wound. 8. Depression. 9. Gastroesophageal reflux disease. 10. Hypothyroidism. 11. Chronic pain. MEDICATIONS AT DISCHARGE: Include: 1. Prolia 60 mg subcutaneously as previously taken. 2. Acetaminophen 500 mg b.i.d. 3. Maalox Plus 30 mL every 6 hours for indigestion. 4. Albuterol nebulizer every 4 hours p.r.n. shortness of breath. 5. Albuterol inhaler 2 puffs b.i.d. p.r.n. 6. Eliquis 10 mg b.i.d. for total of 3 months. 7. Lipitor 80 mg daily. 8. Bupropion XL 300 mg daily. 9. Colace 100 mg b.i.d. 10. Ferrous gluconate 325 mg daily. 11. Folic acid 1 mg daily. 12. Furosemide 20 mg on Tuesdays, , and Saturdays. 13. Gabapentin 300 mg b.i.d. 14. Levothyroxine 75 mcg daily. 15. Mag-Ox 800 mg at bedtime. 16. Metoprolol tartrate 25 mg b.i.d. 17. Omeprazole 40 mg daily. 18. Potassium chloride 20 mEq daily. 19. Ramipril 5 mg daily. 20. Carafate 1 g 3 times a day with meals. 21. Tocilizumab 162 mg subcutaneously weekly. 22. Fentanyl patch 25 mcg transdermally every 72 hours. 23. Oxycodone 5 mg every 4 to 6 hours p.r.n. 24. Prednisone 5 mg daily. 25. Voltaren gel applied to affected areas b.i.d. p.r.n. DISCHARGE INSTRUCTIONS: Wound care to sacral wound. The patient is to have the wound care dressing changes p.r.n. and at least every 3 to 4 days, to cover with silver collagen to the wound bed, and covering with gauze and ABD pads or Mepilex, depending on how much drainage there is. Ambulation, out of bed with assistance. Weight. The patient's weight at discharge is 115 pounds. The patient is recommended to have her weight checked on a daily basis and call MD if her weight increases over 3 pounds. DIET AT DISCHARGE: Cardiac, and Ensure 1 can up to 4 times a day. LABORATORY DATA/STUDIES PERFORMED DURING THE HOSPITAL STAY: Included: On 03/27/17, sodium of 134, potassium of 4.2, chloride 98, carbon dioxide 31, BUN 11, creatinine 0.53. On 03/24/17, white blood cell count of 8.8, hemoglobin of 13.7, hematocrit of 42 , and platelets of 303. CT angiogram of the chest obtained on admission. Impression: "No CT evidence of acute pulmonary embolic disease. Chronic lung findings with hyperinflation. Thoracic spine compression deformities" Venous Doppler study obtained on 03/23/17. Impression: "Peroneal veins are not visualized. One of the thong-posterior tibial veins is not visualized and may be thrombosed." That was left lower extremity Doppler. Transthoracic echocardiogram obtained on 03/23/17. Impression: "Study quality is fair. Mild concentric LVH is observed with sigmoid septum. The left ventricle appears hyperdynamic. The estimated ejection fraction is greater than 65%. There is an E to A reversal of the mitral valve flow pattern suggestive of diastolic dysfunction. The left atria is mildly dilated. The right ventricle wall thickness is mildly increased. The right atrium is slightly dilated. The aortic valve leaflets are mildly thickened and there is a trace of mitral regurgitation and trace tricuspid regurgitation, and evidence of mild pulmonary hypertension similar to May 2015, except for RVH was not reported last time." HOSPITALIZATION COURSE: Cinthya Parks is a 71-year-old female with a history of severe rheumatoid arthritis and decreased mobility due to that, who presented to the hospital on 03/23/17 with complaints of shortness of breath and chest heaviness. The patient was diagnosed with acute diastolic CHF and diuresed. She was noted to have chronic sacral/left buttock wound that had been under the care of our wound care center. The patient actually had a cadaveric skin transplant to the area that failed, in February of 2017. The patient was seen by Wound consult and who recommended wound care dressing as above with silver collagen. During the patient's hospital stay, she became more deconditioned. Her mobility is also very impaired at baseline and usually she transfers from bed to wheelchair by herself, but she needed more assistance after her acute hospitalization and she was deemed to be a good candidate for short-term rehabilitation. Please note that the patient has severe arthritic changes in bilateral hands and hips as well as knees. During the hospital stay, the patient complained of left calf pain and her venous Dopplers were likely positive for DVT below the knee, of one of the tibial veins on the left. It was discussed with the patient and a decision on anticoagulation was made. The patient was placed on Eliquis and recommendation is to continue Eliquis for 3 days' duration of treatment. At that point, the patient's aspirin was held during the Eliquis treatment. The patient is being discharged on [facility] for further rehabilitation. PHYSICAL EXAMINATION: At the time of discharge, blood pressure of 121/53, heart rate of 82 and regular, respiratory rate 12, oxygen saturation 94% on room air, temperature 98.8. General: The patient is a very pleasant 71-year- old female, who is in no acute distress. Alert, awake and oriented x3. HEENT: Head: Atraumatic and normocephalic. Eyes: Pupils are equal and reactive to light and accommodation. Oropharynx clear. Mucosa moist. Neck: Supple. No JVD. No bruits bilaterally. Cardiovascular: Regular rate and rhythm. No murmur. Respiratory: Dry crackles at bilateral bases, otherwise clear. Abdomen : Soft, nontender. Bowel sounds present in all 4 quadrants. Extremities: There is no edema. Pulses are +2 bilaterally. There is no clubbing or cyanosis. Severe arthritic changes in bilateral hands and bilateral knees were noted. On evaluation of the skin, the patient has stage 3 to 4 sacral and left buttock decubitus ulcer of approximately 4 cm in diameter and 3 cm deep, that was draining serous discharge. Please note that this is a short summary of the patient's hospitalization. Please refer to further medical records for details. TIME SPENT: Approximately 45 minutes were spent on the patient's discharge. [id number]/[facility] #: [id number] MTDD
== END 2017-03-29 12:45 | disposition home or self-care (01) | DRG 291 ==
LOC: ED 19:03 → MEDTELE 03-23 00:36 → OBSVTOIN 03-23 10:00
PROVIDERS: ADMIT Pediatrics; ATTEND Internal Medicine
DX: I11.0 Hypertensive heart disease with heart failure (principal); L89.324 Pressure ulcer of left buttock, stage 4; I82.442 Acute embolism and thrombosis of left tibial vein; L89.154 Pressure ulcer of sacral region, stage 4; M06.9 Rheumatoid arthritis, unspecified; F33.9 Major depressive disorder, recurrent, unspecified; I50.31 Acute diastolic (congestive) heart failure; I25.10 Atherosclerotic heart disease of native coronary artery without angina pectoris; M81.0 Age-related osteoporosis without current pathological fracture; E78.5 Hyperlipidemia, unspecified; K21.9 Gastro-esophageal reflux disease without esophagitis; E03.9 Hypothyroidism, unspecified; G89.29 Other chronic pain; I25.2 Old myocardial infarction; Z87.891 Personal history of nicotine dependence; Z79.1 Long term (current) use of non-steroidal anti-inflammatories (NSAID); Z79.82 Long term (current) use of aspirin; Z79.891 Long term (current) use of opiate analgesic; Z79.52 Long term (current) use of systemic steroids; Z98.61 Coronary angioplasty status; Z79.899 Other long term (current) drug therapy; Z88.8 Allergy status to other drugs, medicaments and biological substances; Z80.1 Family history of malignant neoplasm of trachea, bronchus and lung; Z81.8 Family history of other mental and behavioral disorders; Z99.3 Dependence on wheelchair; Z66 Do not resuscitate
CPT/HCPCS: 36415; 71020; 71275; 80048; 80053; 80061; 83605; 83880; 84145; 84484; 85025; 86140; 87040; 93005; 93306; 94640; A9270-GY; J1644; J1940; J2405; J2930; J7512; Q9967

== ENCOUNTER 2017-06-30 13:54 | Emergency (ER) | payer MEDICARE, MEDICAID ==
[2017-06-30 15:42] LABS: Hematocrit 35 % (35-47); Hemoglobin 11.6 g/dl (12.0-16.0); Mean Corpuscular HGB Conc 33 g/dl (31-36); Mean Corpuscular Hemoglobin 28 pg (27-31); Mean Corpuscular Volume 84 fL (80-97); Mean Platelet Volume 7 um3 (7.4-10.4); Red Blood Count 4.18 10^6/ul (4.0-5.4); Red Cell Distribution Width 15 % (10.5-15); White Blood Count 6.4 10^3/ul (3.5-10.8)
[2017-06-30 15:59] LABS: Troponin I 0.01 ng/mL (<0.04)
[2017-06-30 16:01] LABS: Albumin 2.8 g/dL (3.2-5.2); BUN/Creatinine Ratio 18.8 (8-20); C Reactive Protein 44.32 mg/L (< 5.00); Calcium 9.1 mg/dL (8.6-10.3); EGFR African American 116.7 (>60); EGFR Non-African American 90.7 (>60); Globulin 3.9 g/dL (2-4); Magnesium 1.7 mg/dL (1.9-2.7); Potassium 4.3 mmol/L (3.5-5.0); Total Bilirubin 0.4 mg/dL (0.2-1.0); Total Protein 6.7 g/dL (6.4-8.9)
--- NOTE | 2017-06-30 16:16 | RAD ---
Indication: Generalized weakness today. Previous [place]. Chronic obstructive pulmonary disease. Comparison: June 15, 2017 Technique: Upright AP 1542 hours Report: Minimal bibasilar subsegmental atelectasis. No alveolar consolidation concerning for pneumonia or suspicious focal pulmonary lesion. Negative for pleural effusion or pneumothorax. Negative for cardiomegaly. Unremarkable central pulmonary vasculature. Tortuous descending thoracic aorta without change. Chronic advanced arthropathy with potential neurogenic component at the shoulders. IMPRESSION: Minimal bibasilar subsegmental atelectasis.
[2017-06-30 16:35] LABS: TSH (Thyroid Stimulating Horm) 0.61 mcIU/mL (0.34-5.60)
[2017-06-30 16:50] LABS: Urine Bacteria Absent (Absent); Urine Bilirubin Negative (Negative); Urine Glucose Negative (Negative); Urine Nitrite Negative (Negative)
[2017-06-30 17:36] VITALS: BP 151/69
--- NOTE | 2017-06-30 18:22 | ED ---
Darren Sandoval Gabriel, scribed for Usama Morgan MD on 06/30/17 at 1524 . Complex/Multi-Sys Presentation - HPI Summary HPI Summary: This patient is a 72 year old F presenting to [facility] was sent from the wound clinic for having hypotension when she was there, [employer]. Patient reports fatigue, weakness, and light headedness. Patient denies CP, dyspnea, and ABD pain. - History Of Current Complaint Chief Complaint: EDWeakness Time Seen by Provider: 06/30/17 15:10 Hx Obtained From: Patient Onset/Duration: Still Present Severity Currently: None Associated Signs And Symptoms: Positive: Weakness, Other - tired and light headed - Allergies/Home Medications Allergies/Adverse Reactions: Allergies Allergy/AdvReac Type Severity Reaction Status Date / Time Cephalosporins Allergy Abdominal Verified 06/15/17 07:02 Pain PMH/Surg Hx/FS Hx/Imm Hx Previously Healthy: No Endocrine/Hematology History: Reports: Hx Anticoagulant Therapy, Hx Anemia Denies: Hx Diabetes, Hx Systemic Lupus Erythematosus Cardiovascular History: Reports: Hx Angina, Hx Angioplasty, Hx Congestive Heart Failure, Hx Coronary Artery Disease, Hx Hypercholesterolemia, Hx Hypertension, Hx Myocardial Infarction, Other Cardiovascular Problems/Disorders - DR. DUNLAP Denies: Hx Pacemaker/ICD, Hx Valvular Heart Disease Respiratory History: Reports: Hx Chronic Obstructive Pulmonary Disease (COPD), Other Respiratory Problems/Disorders - OCCASIONALLY DIFFICULTY BREATHING- PRN PROVENTIL- STATES HELPS Denies: Hx Asthma, Hx Lung Cancer, Hx Pneumonia, Hx Seasonal Allergies, Hx Sleep Apnea GI History: Reports: Hx Gall Bladder Disease - cholecystectomy, Hx Gastroesophageal Reflux Disease - ON MEDICATION FOR, Other GI Disorders - colitis History: Reports: Hx Kidney Infection, Hx Kidney Stones Denies: Hx Dialysis, Hx Renal Disease Musculoskeletal History: Reports: Hx Arthritis, Hx Rheumatoid Arthritis, Hx Back Problems, Hx Fibromyalgia, Hx Osteoporosis, Other Musculoskeletal History - herniated disc back T5 and cervical area Sensory History: Reports: Hx Cataracts, Hx Contacts or Glasses Denies: Hx Glaucoma, Hx Hearing Aid Opthamlomology History: Reports: Hx Cataracts, Hx Contacts or Glasses Denies: Hx Glaucoma Neurological History: Reports: Hx Migraine - RARELY, Hx Seizures Denies: Hx Nerve Disease, Hx Spinal Cord Injury, Hx Transient Ischemic Attacks (TIA) Psychiatric History: Reports: Hx Anxiety - ON MEDICATION FOR, Hx Depression - ON MEDICATION FOR - Surgical History Surgery Procedure, Year, and Place: Cardiac stent; right hand surgery; left foot surgery; neck surgery, cholecystectomy, hysterectomy Hx Anesthesia Reactions: No Infectious Disease History: No Infectious Disease History: Reports: Hx of Known/Suspected MRSA Denies: Traveled Outside the [place] in Last 30 Days - Family History Known Family History: Positive: None, Other - [place]. cancer. TIA - Social History Alcohol Use: None Substance Use Type: Reports: None Smoking Status (MU): Former Smoker Type: Cigarettes Amount Used/How Often: 1 PPD X 45 YEARS Length of Time of Smoking/Using Tobacco: 48 years Have You Smoked in the Last Year: No Review of Systems Positive: Fatigue Positive: Chest Pain Respiratory: Negative - dyspnea Negative: Abdominal Pain Neurological: Other - light headed Positive: Weakness All Other Systems Reviewed And Are Negative: Yes Physical Exam - Summary Physical Exam Summary: The patient is well-nourished in no acute distress and in no acute pain. The skin is warm and dry and skin color reflects adequate perfusion. HEENT: ~The head is normocephalic and atraumatic. The pupils are equal and reactive. The conjunctivae are clear and without drainage. ~Nares are patent and without drainage. ~Mouth reveals dry mucous membranes and the throat is without erythema and exudate. ~The external ears are intact. The ear canals are patent and without drainage. The tympanic membranes are intact. Neck is supple with full range of motion and non-tender. There are no carotid bruits. ~There is no neck vein distension. Respiratory: Chest is non-tender. ~Lungs are clear to auscultation and breath sounds are symmetrical and equal. Cardiovascular: Heart is regular rate and rhythm. ~There is no murmur or rub auscultated. ~~There is no peripheral edema and pulses are symmetrical and equal. Abdomen: The abdomen is soft and non-tender. ~There are normal bowel sounds heard in all four quadrants and there is no organomegaly palpated. Musculoskeletal: There is no back pain noted. ~Extremities are non-tender with full range of motion. ~There is good capillary refill. ~There is no peripheral edema or calf tenderness elicited. Neurological: Patient is alert and oriented to person, place and time. ~The patient has symmetrical motor strength in all four extremities. ~Cranial nerves are grossly intact. Deep tendon reflexes are symmetrical and equal in all four extremities. Psychiatric: The patient has an appropriate affect and does not exhibit any anxiety or depression. Triage Information Reviewed: Yes Vital Signs On Initial Exam: Initial Vitals Temp Pulse Resp BP Pulse Ox 97.6 F 80 16 133/66 97 06/30/17 13:58 06/30/17 13:58 06/30/17 13:58 06/30/17 13:58 06/30/17 13:58 Vital Signs Reviewed: Yes Diagnostics - Vital Signs Vital Signs Temp Pulse Resp BP Pulse Ox 06/30/17 13:58 97.6 F 80 16 133/66 97 - Laboratory Lab Results: Lab Results 06/30/17 06/30/17 06/30/17 Range/Units 15:32 15:32 15:32 WBC 6.4 (3.5-10.8) 10^3/ul RBC 4.18 (4.0-5.4) 10^6/ul Hgb 11.6 L (12.0-16.0) g/dl Hct 35 (35-47) % MCV 84 (80-97) fL MCH 28 (27-31) pg MCHC 33 (31-36) g/dl RDW 15 (10.5-15) % Plt Count 307 (150-450) 10^3/ul MPV 7 L (7.4-10.4) um3 Neut % (Auto) 76.3 (38-83) % Lymph % (Auto) 11.2 L (25-47) % [place] % (Auto) 10.8 H (1-9) % Eos % (Auto) 1.0 (0-6) % Baso % (Auto) 0.7 (0-2) % Absolute Neuts (auto) 4.9 (1.5-7.7) 10^3/ul Absolute Lymphs (auto) 0.7 L (1.0-4.8) 10^3/ul Absolute Monos (auto) 0.7 (0-0.8) 10^3/ul Absolute Eos (auto) 0.1 (0-0.6) 10^3/ul Absolute Basos (auto) 0 (0-0.2) 10^3/ul Absolute Nucleated RBC 0 10^3/ul Nucleated RBC % 0.1 Sodium 132 L (133-145) mmol/L Potassium 4.3 (3.5-5.0) mmol/L Chloride 97 L (101-111) mmol/L Carbon Dioxide 28 (22-32) mmol/L Anion Gap 7 (2-11) mmol/L BUN 12 (6-24) mg/dL Creatinine 0.64 (0.51-0.95) mg/dL Est GFR ( Amer) 116.7 (>60) Est GFR (Non-Af Amer) 90.7 (>60) BUN/Creatinine Ratio 18.8 (8-20) Glucose 70 (70-100) mg/dL Lactic Acid 1.6 (0.5-2.0) mmol/L Calcium 9.1 (8.6-10.3) mg/dL Magnesium 1.7 L (1.9-2.7) mg/dL Total Bilirubin 0.40 (0.2-1.0) mg/dL AST 22 (13-39) U/L ALT 12 (7-52) U/L Alkaline Phosphatase 123 H (34-104) U/L Troponin I 0.01 (<0.04) ng/mL C-Reactive Protein 44.32 H (< 5.00) mg/L Total Protein 6.7 (6.4-8.9) g/dL Albumin 2.8 L (3.2-5.2) g/dL Globulin 3.9 (2-4) g/dL Albumin/Globulin Ratio 0.7 L (1-3) TSH 0.61 (0.34-5.60) mcIU/mL Urine Color Urine Appearance Urine pH (5-9) Ur Specific [place] (1.010-1.030) Urine Protein (Negative) Urine Ketones (Negative) Urine Blood (Negative) Urine Nitrate (Negative) Urine Bilirubin (Negative) Urine Urobilinogen (Negative) Ur Leukocyte Esterase (Negative) Urine WBC (Auto) (Absent) Urine RBC (Auto) (Absent) Ur Squamous Epith Cells (Absent) Urine Bacteria (Absent) Hyaline Casts (Absent) Urine Glucose (Negative) 06/30/17 Range/Units 16:23 WBC (3.5-10.8) 10^3/ul RBC (4.0-5.4) 10^6/ul Hgb (12.0-16.0) g/dl Hct (35-47) % MCV (80-97) fL MCH (27-31) pg MCHC (31-36) g/dl RDW (10.5-15) % Plt Count (150-450) 10^3/ul MPV (7.4-10.4) um3 Neut % (Auto) (38-83) % Lymph % (Auto) (25-47) % [place] % (Auto) (1-9) % Eos % (Auto) (0-6) % Baso % (Auto) (0-2) % Absolute Neuts (auto) (1.5-7.7) 10^3/ul Absolute Lymphs (auto) (1.0-4.8) 10^3/ul Absolute Monos (auto) (0-0.8) 10^3/ul Absolute Eos (auto) (0-0.6) 10^3/ul Absolute Basos (auto) (0-0.2) 10^3/ul Absolute Nucleated RBC 10^3/ul Nucleated RBC % Sodium (133-145) mmol/L Potassium (3.5-5.0) mmol/L Chloride (101-111) mmol/L Carbon Dioxide (22-32) mmol/L Anion Gap (2-11) mmol/L BUN (6-24) mg/dL Creatinine (0.51-0.95) mg/dL Est GFR ( Amer) (>60) Est GFR (Non-Af Amer) (>60) BUN/Creatinine Ratio (8-20) Glucose (70-100) mg/dL Lactic Acid (0.5-2.0) mmol/L Calcium (8.6-10.3) mg/dL Magnesium (1.9-2.7) mg/dL Total Bilirubin (0.2-1.0) mg/dL AST (13-39) U/L ALT (7-52) U/L Alkaline Phosphatase (34-104) U/L Troponin I (<0.04) ng/mL C-Reactive Protein (< 5.00) mg/L Total Protein (6.4-8.9) g/dL Albumin (3.2-5.2) g/dL Globulin (2-4) g/dL Albumin/Globulin Ratio (1-3) TSH (0.34-5.60) mcIU/mL Urine Color Yellow Urine Appearance Clear Urine pH 6.0 (5-9) Ur Specific [place] 1.011 (1.010-1.030) Urine Protein Negative (Negative) Urine Ketones Negative (Negative) Urine Blood Negative (Negative) Urine Nitrate Negative (Negative) Urine Bilirubin Negative (Negative) Urine Urobilinogen Negative (Negative) Ur Leukocyte Esterase Trace H (Negative) Urine WBC (Auto) Trace(0-5/hpf) (Absent) Urine RBC (Auto) Trace(0-2/hpf) (Absent) Ur Squamous Epith Cells Present H (Absent) Urine Bacteria Absent (Absent) Hyaline Casts Present H (Absent) Urine Glucose Negative (Negative) Result Diagrams: 06/30/17 15:32 06/30/17 15:32 Lab Statement: Any lab studies that have been ordered have been reviewed, and results considered in the medical decision making process. - Radiology CXR Radiology Interpretation Completed By: Radiologist - Minimal bibasilar subsegmental atelectasis. ED physician has reviewed this radiology report and agrees. - EKG 16:33 Cardiac Rate: NL EKG Rhythm: Sinus Rhythm - 81 BPM EKG Interpretation: LAD Complex Multi-Symp Course/Dx Course Of Treatment: Ms. Parks was sent over from the wound clinic for hypotension. Here her pressure was fine but she did admit to fatigue. Labs were checked and she was monitored and observed. She remained stable and I will D/C her F/U. - Diagnoses Provider Diagnoses: Weakness Discharge - Discharge Plan Condition: Stable Disposition: HOME Patient Education Materials: Hypotension (ED) Referrals: Fernando Fuller DO [Primary Care Provider] - The documentation as recorded by the Darren erazo Gabriel accurately reflects the service I personally performed and the decisions made by , Usama Morgan MD.
== END 2017-06-30 18:20 | disposition home or self-care (01) ==
LOC: ED 13:54
DX: R53.1 Weakness (principal); R07.9 Chest pain, unspecified; R53.83 Other fatigue; Z87.891 Personal history of nicotine dependence
CPT/HCPCS: 36415; 71010; 80053; 81003; 81015; 83605; 83735; 84443; 84484; 85025; 86140; 87086; 93005; 99282

== ENCOUNTER 2017-07-17 09:24 | Observation (INO) | payer MEDICARE, MEDICAID ==
[2017-07-17] MEDS ORDERED: Meclizine TAB* 12.5 MG PO ONE (09:53)
[2017-07-17] MEDS ORDERED: NS 0.9% 1000 ML* 1,000 ML IV ONE (09:53)
[2017-07-17 10:31] LABS: Hematocrit 34 % (35-47); Mean Corpuscular HGB Conc 33 g/dl (31-36); Mean Corpuscular Hemoglobin 27 pg (27-31); Mean Corpuscular Volume 83 fL (80-97); Mean Platelet Volume 8 um3 (7.4-10.4); Red Cell Distribution Width 15 % (10.5-15); White Blood Count 8.1 10^3/ul (3.5-10.8)
[2017-07-17 10:47] LABS: Albumin 2.7 g/dL (3.2-5.2); C Reactive Protein 99.82 mg/L (< 5.00); Calcium 8.8 mg/dL (8.6-10.3); EGFR African American 155.1 (>60); EGFR Non-African American 120.6 (>60); Globulin 3.3 g/dL (2-4); Magnesium 1.8 mg/dL (1.9-2.7); Potassium 4.2 mmol/L (3.5-5.0); Total Bilirubin 0.5 mg/dL (0.2-1.0)
[2017-07-17 10:49] LABS: Troponin I 0.01 ng/mL (<0.04)
--- NOTE | 2017-07-17 11:03 | RAD ---
INDICATION: Dizziness and neck pain COMPARISON: Most recent comparison chest x-rays dated June 30, 2017 TECHNIQUE: PA and lateral views of the chest were obtained. FINDINGS: The heart and mediastinum are normal in size and contour. There is calcified atherosclerosis overlying the arch of the aorta. The lungs are grossly clear. There is no evidence of large pleural effusion. Degenerative changes of bilateral shoulders include joint space narrowing and sclerotic change of the articulating surfaces similar in appearance to the prior chest x-ray. There is no radiographic evidence of free air beneath the diaphragm IMPRESSION: No radiographic evidence of acute cardiopulmonary disease.
[2017-07-17 11:29] LABS: TSH (Thyroid Stimulating Horm) 0.57 mcIU/mL (0.34-5.60)
[2017-07-17] MEDS ORDERED: Albuterol 2.5 MG/3 ML NEB.SOL* (0.083%) INH PRN (14:17)
[2017-07-17 14:21] LABS: Urine Bacteria 1+ (Absent); Urine Bilirubin Negative (Negative); Urine Glucose Negative (Negative); Urine Nitrite Positive (Negative)
[2017-07-17] MEDS: oxyCODONE TAB* 5 MG TAB PO PRN ×2 (14:47→21:39)
[2017-07-17] MEDS ORDERED: Magnesium Sulfate 2 GM IV* 2 GM/50 ML BAG IVPB ONE (16:08)
[2017-07-17] MEDS: fentaNYL PATCH 50 MCG/HR TRANSDERM SCH (16:56)
[2017-07-17] MEDS: Atorvastatin* 20 MG TAB PO SCH (17:02)
[2017-07-17] MEDS ORDERED: Sulfamethox/Trimethoprim DS 800/160* TAB PO ONE (17:22)
--- NOTE | 2017-07-17 18:16 | ED ---
Shashank Sandoval Angela, scribed for Pablo Judge MD on 07/17/17 at 0945 . Dizziness - HPI Summary HPI Summary: This pt is a 72 y/o female presenting to [facility] c/o dizziness, worsening for the last 3 weeks, and worsening weakness for the last week. Pt reports that she is not able to get up without feeling dizzy. She describes dizziness as if her head is spinning.She states she was in the hospital for a UTI a few weeks ago and was given antibiotics. Pt notes her dizziness has been getting worse since she was discharged. Pt additionally c/o bilateral upper extremity numbness and pain, urinary hesitancy and dark urine color. She denies fevers, chest pain, SOB , palpitations. Pt lives at home alone and has aides who come and help her every week. - History Of Current Complaint Chief Complaint: EDGeneral Stated Complaint: NECK PAIN/EXTREMITY NUMBNESS Hx Obtained From: Patient Onset/Duration: Still Present Timing: Weeks Character: Head Spinning, Dizzy Aggravating Factor(s): Position Change Associated Signs And Symptoms: Positive: Other: - POS: weakness, urinary hesitancy, dark urine color, bilateral UE pain and numbness. Negative: Chest Pain, SOB, Palpitations, Fever - Allergies/Home Medications Allergies/Adverse Reactions: Allergies Allergy/AdvReac Type Severity Reaction Status Date / Time Cephalosporins Allergy Abdominal Verified 07/17/17 09:30 Pain Latex Allergy Rash Verified 07/17/17 09:30 PMH/Surg Hx/FS Hx/Imm Hx Endocrine/Hematology History: Reports: Hx Anticoagulant Therapy, Hx Anemia Denies: Hx Diabetes, Hx Systemic Lupus Erythematosus Cardiovascular History: Reports: Hx Angina, Hx Angioplasty, Hx Congestive Heart Failure, Hx Coronary Artery Disease, Hx Hypercholesterolemia, Hx Hypertension, Hx Myocardial Infarction, Other Cardiovascular Problems/Disorders - DR. DUNLAP Denies: Hx Pacemaker/ICD, Hx Valvular Heart Disease Respiratory History: Reports: Hx Chronic Obstructive Pulmonary Disease (COPD), Other Respiratory Problems/Disorders - OCCASIONALLY DIFFICULTY BREATHING- PRN PROVENTIL- STATES HELPS Denies: Hx Asthma, Hx Lung Cancer, Hx Pneumonia, Hx Seasonal Allergies, Hx Sleep Apnea GI History: Reports: Hx Gall Bladder Disease - cholecystectomy, Hx Gastroesophageal Reflux Disease - ON MEDICATION FOR, Other GI Disorders - colitis History: Reports: Hx Kidney Infection, Hx Kidney Stones Denies: Hx Dialysis, Hx Renal Disease Musculoskeletal History: Reports: Hx Arthritis, Hx Rheumatoid Arthritis, Hx Back Problems, Hx Fibromyalgia, Hx Osteoporosis, Other Musculoskeletal History - herniated disc back T5 and cervical area Sensory History: Reports: Hx Cataracts, Hx Contacts or Glasses Denies: Hx Glaucoma, Hx Hearing Aid Opthamlomology History: Reports: Hx Cataracts, Hx Contacts or Glasses Denies: Hx Glaucoma Neurological History: Reports: Hx Migraine - RARELY, Hx Seizures Denies: Hx Nerve Disease, Hx Spinal Cord Injury, Hx Transient Ischemic Attacks (TIA) Psychiatric History: Reports: Hx Anxiety - ON MEDICATION FOR, Hx Depression - ON MEDICATION FOR Denies: Hx Panic Disorder - Surgical History Surgery Procedure, Year, and Place: Cardiac stent; right hand surgery; left foot surgery; neck surgery, cholecystectomy, hysterectomy Hx Anesthesia Reactions: No Infectious Disease History: No Infectious Disease History: Reports: Hx of Known/Suspected MRSA Denies: Traveled Outside the US in Last 30 Days - Family History Known Family History: Positive: Other - [place]. cancer. TIA - Social History Alcohol Use: None Substance Use Type: Reports: None Smoking Status (MU): Former Smoker Type: Cigarettes Amount Used/How Often: 1 PPD X 45 YEARS Length of Time of Smoking/Using Tobacco: 48 years Have You Smoked in the Last Year: No Review of Systems Negative: Fever, Chills Negative: Palpitations, Chest Pain Negative: Shortness Of Breath Genitourinary: Other - urinary hesitancy, dark urine color Musculoskeletal: Other - pain in bilateral UE Neurological: Other - dizziness Positive: Weakness, Numbness - in bilateral UE All Other Systems Reviewed And Are Negative: Yes Physical Exam - Summary Physical Exam Summary: VITAL SIGNS: Reviewed. GENERAL: Patient is an elderly and fragile female who is lying comfortable in the stretcher. Patient is not in any acute respiratory distress. Pt seems to be dry. HEAD AND FACE: No signs of trauma. No ecchymosis, hematomas or skull depressions. No sinus tenderness. EYES: PERRLA, EOMI x 2, No injected conjunctiva, no nystagmus. EARS: Hearing grossly intact. Ear canals and tympanic membranes are within normal limits. MOUTH: Oropharynx within normal limits. Dry oral mucosa. NECK: Supple, trachea is midline, no adenopathy, no JVD, no carotid bruit, no c- spine tenderness, neck with full ROM. CHEST: Symmetric, no tenderness at palpation LUNGS: Clear to auscultation bilaterally. No wheezing or crackles. CVS: Regular rate and rhythm, S1 and S2 present, no murmurs or gallops appreciated. ABDOMEN: Soft, non-tender. No signs of distention. No rebound no guarding, and no masses palpated. Bowel sounds are normal. EXTREMITIES: FROM in all major joints, no edema, no cyanosis or clubbing. NEURO: Alert and oriented x 3. No acute neurological deficits. Speech is normal and follows commands. SKIN: Dry and warm Triage Information Reviewed: Yes Vital Signs On Initial Exam: Initial Vitals Temp Pulse Resp BP Pulse Ox 97.5 F 84 15 151/58 98 07/17/17 09:26 07/17/17 09:26 07/17/17 09:26 07/17/17 09:26 07/17/17 09:26 Vital Signs Reviewed: Yes - Junior Coma Scale Coma Scale Total: 15 Diagnostics - Vital Signs Vital Signs Temp Pulse Resp BP Pulse Ox 07/17/17 09:26 97.5 F 84 15 151/58 98 - Laboratory Lab Results: Lab Results 07/17/17 07/17/17 07/17/17 Range/Units 10:15 10:15 10:15 WBC 8.1 (3.5-10.8) 10^3/ul RBC 4.10 (4.0-5.4) 10^6/ul Hgb 11.0 L (12.0-16.0) g/dl Hct 34 L (35-47) % MCV 83 (80-97) fL MCH 27 (27-31) pg MCHC 33 (31-36) g/dl RDW 15 (10.5-15) % Plt Count 306 (150-450) 10^3/ul MPV 8 (7.4-10.4) um3 Neut % (Auto) 87.4 H (38-83) % Lymph % (Auto) 4.4 L (25-47) % [place] % (Auto) 5.9 (1-9) % Eos % (Auto) 1.9 (0-6) % Baso % (Auto) 0.4 (0-2) % Absolute Neuts (auto) 7.1 (1.5-7.7) 10^3/ul Absolute Lymphs (auto) 0.4 L (1.0-4.8) 10^3/ul Absolute Monos (auto) 0.5 (0-0.8) 10^3/ul Absolute Eos (auto) 0.2 (0-0.6) 10^3/ul Absolute Basos (auto) 0 (0-0.2) 10^3/ul Absolute Nucleated RBC 0 10^3/ul Nucleated RBC % 0 Sodium 131 L (133-145) mmol/L Potassium 4.2 (3.5-5.0) mmol/L Chloride 96 L (101-111) mmol/L Carbon Dioxide 28 (22-32) mmol/L Anion Gap 7 (2-11) mmol/L BUN 14 (6-24) mg/dL Creatinine 0.50 L (0.51-0.95) mg/dL Est GFR ( Amer) 155.1 (>60) Est GFR (Non-Af Amer) 120.6 (>60) BUN/Creatinine Ratio 28.0 H (8-20) Glucose 87 (70-100) mg/dL Lactic Acid 1.3 (0.5-2.0) mmol/L Calcium 8.8 (8.6-10.3) mg/dL Magnesium 1.8 L (1.9-2.7) mg/dL Total Bilirubin 0.50 (0.2-1.0) mg/dL AST 21 (13-39) U/L ALT 10 (7-52) U/L Alkaline Phosphatase 122 H (34-104) U/L Troponin I 0.01 (<0.04) ng/mL C-Reactive Protein 99.82 H (< 5.00) mg/L Total Protein 6.0 L (6.4-8.9) g/dL Albumin 2.7 L (3.2-5.2) g/dL Globulin 3.3 (2-4) g/dL Albumin/Globulin Ratio 0.8 L (1-3) TSH 0.57 (0.34-5.60) mcIU/mL Urine Color Urine Appearance Urine pH (5-9) Ur Specific [place] (1.010-1.030) Urine Protein (Negative) Urine Ketones (Negative) Urine Blood (Negative) Urine Nitrate (Negative) Urine Bilirubin (Negative) Urine Urobilinogen (Negative) Ur Leukocyte Esterase (Negative) Urine WBC (Auto) (Absent) Urine RBC (Auto) (Absent) Urine Bacteria (Absent) Urine Glucose (Negative) 07/17/17 Range/Units 14:06 WBC (3.5-10.8) 10^3/ul RBC (4.0-5.4) 10^6/ul Hgb (12.0-16.0) g/dl Hct (35-47) % MCV (80-97) fL MCH (27-31) pg MCHC (31-36) g/dl RDW (10.5-15) % Plt Count (150-450) 10^3/ul MPV (7.4-10.4) um3 Neut % (Auto) (38-83) % Lymph % (Auto) (25-47) % [place] % (Auto) (1-9) % Eos % (Auto) (0-6) % Baso % (Auto) (0-2) % Absolute Neuts (auto) (1.5-7.7) 10^3/ul Absolute Lymphs (auto) (1.0-4.8) 10^3/ul Absolute Monos (auto) (0-0.8) 10^3/ul Absolute Eos (auto) (0-0.6) 10^3/ul Absolute Basos (auto) (0-0.2) 10^3/ul Absolute Nucleated RBC 10^3/ul Nucleated RBC % Sodium (133-145) mmol/L Potassium (3.5-5.0) mmol/L Chloride (101-111) mmol/L Carbon Dioxide (22-32) mmol/L Anion Gap (2-11) mmol/L BUN (6-24) mg/dL Creatinine (0.51-0.95) mg/dL Est GFR ( Amer) (>60) Est GFR (Non-Af Amer) (>60) BUN/Creatinine Ratio (8-20) Glucose (70-100) mg/dL Lactic Acid (0.5-2.0) mmol/L Calcium (8.6-10.3) mg/dL Magnesium (1.9-2.7) mg/dL Total Bilirubin (0.2-1.0) mg/dL AST (13-39) U/L ALT (7-52) U/L Alkaline Phosphatase (34-104) U/L Troponin I (<0.04) ng/mL C-Reactive Protein (< 5.00) mg/L Total Protein (6.4-8.9) g/dL Albumin (3.2-5.2) g/dL Globulin (2-4) g/dL Albumin/Globulin Ratio (1-3) TSH (0.34-5.60) mcIU/mL Urine Color Yellow Urine Appearance Clear Urine pH 8.0 (5-9) Ur Specific [place] 1.005 L (1.010-1.030) Urine Protein Negative (Negative) Urine Ketones Negative (Negative) Urine Blood Negative (Negative) Urine Nitrate Positive H (Negative) Urine Bilirubin Negative (Negative) Urine Urobilinogen Negative (Negative) Ur Leukocyte Esterase 1+ H (Negative) Urine WBC (Auto) Trace(0-5/hpf) (Absent) Urine RBC (Auto) Absent (Absent) Urine Bacteria 1+ H (Absent) Urine Glucose Negative (Negative) Result Diagrams: 07/17/17 10:15 07/17/17 10:15 Lab Statement: Any lab studies that have been ordered have been reviewed, and results considered in the medical decision making process. - Radiology Chest XR Xray Interpretation: No Acute Changes - IMPRESSION: No radiographic evidence of acute cardiopulmonary disease. ED physician has reviewed this radiology report and agrees. Radiology Interpretation Completed By: Radiologist - EKG 1001 Cardiac Rate: NL EKG Rhythm: Sinus Rhythm - at 81 bpm EKG Interpretation: No ST elevation EKG Comparison: No Significant Change - similar to prior EKG done on 06/30/17. Dizzy Course/Dx - Course Assessment/Plan: This pt is a 72 y/o female presenting to [facility] c/o dizziness, worsening for the last 3 weeks, and worsening weakness for the last week. Pt reports that she is not able to get up without feeling dizzy. She describes dizziness as if her head is spinning.She states she was in the hospital for a UTI a few weeks ago and was given antibiotics. Pt notes her dizziness has been getting worse since she was discharged. Pt additionally c/o bilateral upper extremity numbness and pain, urinary hesitancy and dark urine color. She denies fevers, chest pain, SOB, palpitations. Pt lives at home alone and has aides who come and help her every week. Test results without any significant abnormalities except for slight anemia and CRP of 99.8. Urinalysis is positive for UTI, for which the pt was given Bactrim. At this point, I discussed my findings and test results with the pt and pts daughter and recommended for the pt to be admitted. I also discussed the test results and findings with Dr. Flores , hospitalist, who accepted the pt for admission. Pt is hemodynamically stable , alert and oriented x3. - Diagnoses Differential Diagnosis/HQI/PQRI: Benign Paroxysmal Positional Vertigo, Labyrinthitis, Meniere's Disease, Seizure, Transient Ischemic Attack Provider Diagnoses: fdc care, Dizziness, Urinary tract infection - Provider Notifications Discussed Care Of Patient With: Zaid Flores Time Discussed With Above Provider: 12:27 Instructed by Provider To: Other - I discussed the pt's case with Dr. Flores. He will consult with the pt. [14:35] Dr. Flores has agreed to accept the pt for admission. Discharge - Discharge Plan Condition: Stable Disposition: ADMITTED TO [facility] The documentation as recorded by the Shashank erazo Angela accurately reflects the service I personally performed and the decisions made by me, Pablo Judge MD.
--- NOTE | 2017-07-17 20:29 | HP ---
CC: Dr. Fernando Fuller * HISTORY AND PHYSICAL: DATE OF ADMISSION: 07/17/17 PRIMARY CARE PROVIDER: Dr. Fernando Fuller. ATTENDING PHYSICIAN: Dr. Zaid Flores * (dictated by Salome Olmstead NP) CHIEF COMPLAINT: Inability to move arms due to numbness, tingling, and weakness in bilateral upper extremities. HISTORY OF PRESENT ILLNESS: Ms. Parks is a 72-year-old female with a past medical history significant for coronary artery disease status post myocardial infarction and cardiac stenting, peripheral arterial disease, COPD, history of DVT, hypothyroidism, congestive heart failure, hypertension, hyperlipidemia, GERD, rheumatoid arthritis, who presented to the emergency room with complaints of bilateral upper extremity numbness and weakness for 2 weeks that she feels has been progressing. She reports left-sided neck and ear tingling intermittently with ear pain. The patient states that she has been seen by her primary care provider who ordered an MRI of her neck for 07/23/17. The patient lives alone and has aides come in to assist with her care. She is generally able to transfer herself to her wheelchair. She pushed her Life Alert button today when she was unable to get to her wheelchair, but was actually able to get to her wheelchair prior to EMS arriving. It is to note that the patient was treated for urinary tract infection here at [facility] [place] from 06/16/17 to 06/17/17. She has also had an observation stay for chest pain and CHF exacerbation on . She was seen again in the emergency room on 06/30/17 with complaints of low blood pressure and was discharged back home. The patient denies any fever, chest pain, cough, shortness of breath, nausea, vomiting, diarrhea. She reports chills, constipation which she states has resolved, some dizziness when standing this morning when trying to transfer to her wheelchair. This is currently resolved and she is complaining of back and rib pain. The patient at baseline has chronic pain due to her rheumatoid arthritis and history of cervical spine fracture and surgery. The patient was brought to the emergency room by EMS. While in the emergency room, the patient received meclizine and normal saline. Her dizziness had resolved. She continued to have some stiffness and pain in her arms. Her arms had full passive range of motion. She was able to lift them slightly and bend her elbows on her own. The patient had labs showing anemia at her baseline, a mild hyponatremia near her baseline, elevated CRP of 99.82. Also to note that the patient has a chronic left buttock wound that she follows with the wound clinic for and per her family will need a skin graft for. The patient also reports urinary burning and urinary hesitancy for the last 2 days. The patient had an EKG showing a sinus rhythm, no acute signs of ischemia. She had a chest x-ray showing no radiographic evidence for an acute chest pain. Hospitalists were asked to evaluate the patient as it was felt that she was unsafe to go home alone. PAST MEDICAL HISTORY: 1. Coronary artery disease status post myocardial infarction. 2. Peripheral arterial disease. 3. COPD. 4. History of DVT. 5. Hypothyroidism. 6. CHF. 7. Hypertension. 8. Hyperlipidemia. 9. Rheumatoid arthritis. 10. GERD. PAST SURGICAL HISTORY: 1. Status post bunionectomy. 2. Status post hysterectomy. 3. C-spine fusion. 4. Status post bilateral cataract extractions. 5. Status post cardiac catheterization with stenting. 6. Status post colectomy. HOME MEDICATIONS: Include: 1. Prednisone 5 mg oral daily. 2. Oxycodone 5 mg oral every 4 to 6 hours as needed for pain. 3. Fentanyl 50 mcg/an hour transdermal every 24 hours. 4. Potassium chloride 20 mEq oral daily. 5. Omeprazole 20 mg oral daily. 6. Metoprolol tartrate 25 mg twice daily. 7. Levothyroxine 75 mcg oral every morning. 8. Plaquenil 200 mg oral daily. 9. Gabapentin 300 mg oral twice daily. 10. Furosemide 10 mg oral daily. 11. Folic acid 1 mg oral every morning. 12. Colace 100 mg oral twice daily. 13. Bupropion XL 300 mg oral every morning. 14. Atorvastatin 20 mg oral every morning. 15. Aspirin 81 mg oral daily. 16. Albuterol sulfate 2 puffs inhalation twice daily as needed for shortness of breath or wheeze. 17. Albuterol 2.5 mg/3 mL nebulizer 2.5 mg inhalation every 4 hours as needed for shortness of breath or wheeze. 18. Acetaminophen 500 mg oral twice daily as needed for pain. ALLERGIES: CEPHALOSPORINS and LATEX. FAMILY HISTORY: The patient denies any family history of coronary artery disease, diabetes mellitus. The patient's mother had history of lung cancer. Her father committed suicide when she was 11. SOCIAL HISTORY: The patient is a former smoker. She denies alcohol or recreational drug use. She lives alone and has some aide care to assist her in living alone. Her daughters, Mackenzie Mendoza and Antonia Lopez, will be her surrogate decision makers in the event she is unable to make decisions for herself. REVIEW OF SYSTEMS: I performed a 14-point review of systems. All the pertinent positives and negatives are mentioned in the history of present illness. The remaining review of systems is negative. PHYSICAL EXAMINATION GENERAL APPEARANCE: The patient is alert, pleasant, appears to be in no acute distress. VITAL SIGNS: Temperature 97.5, heart rate 74, respiratory rate 14, O2 sat 95% on room air, blood pressure 158/70. HEENT: Normocephalic, atraumatic. Pupils are equal and reactive to light. Extraocular movements are intact. RESPIRATORY: There is no accessory muscle use and lungs are clear to auscultation bilateral. CARDIOVASCULAR: Regular rate and rhythm. S1 and S2 present. There are no murmurs, rubs, or gallops heard. ABDOMEN: Soft, nontender, nondistended. The bowel sounds are present x4. EXTREMITIES: There is mild bilateral lower extremity edema. DP and PT pulses are present. MUSCULOSKELETAL: There is no clubbing or cyanosis noted. The patient is noted to have very stiff joints. She does have full range of motion of all extremities. She is able to raise her arms slightly, has full range of motion at her elbows and has full range of motion with passive range of motion of her shoulders. The patient's neck and spine are not tender to palpation. She does have some tenderness to her lateral left side of her neck and has some muscular tightness at that area. NEUROLOGICAL: The patient is alert and oriented x4. Cranial nerves II through XII are grossly intact. PSYCHOLOGICAL: The patient is calm and cooperative. SKIN: There are no rashes or abnormalities seen, but the patient was not ruled over. She has a chronic left buttock wound. DIAGNOSTIC STUDIES/LAB DATA: Sodium 131, potassium 4.2, chloride 96, CO2 28, BUN 14, creatinine 0.50, glucose 87, magnesium 1.8. CRP 99.82. White blood cell count 8.8, hemoglobin 11.0, hematocrit 34, and platelet count 306. EKG shows a sinus rhythm, rate of 81. This EKG is similar to previous EKG from 06/30/17. Chest x-ray from today. Radiologist's impression: No radiographic evidence of acute cardiopulmonary disease. IMPRESSION: Ms. Parks is a 72-year-old female with a past medical history significant for coronary artery disease, peripheral arterial disease, chronic obstructive pulmonary disease, congestive heart failure, hypertension, hyperlipidemia, and rheumatoid arthritis, who presents to the emergency room with complaints of bilateral upper extremity numbness and weakness. She will be admitted as a half-way care patient. ASSESSMENT/PLAN: 1. Correction care. The patient is unable to care for herself and her family is unable to assist. We will admit the patient for half-way care. 2. Bilateral upper extremity numbness and weakness. This has an unclear etiology. I suspect at baseline, the patient does not have good strength due to her history of rheumatoid arthritis and previous spinal surgeries. This is appears to be a chronic issue and not acute. The patient is scheduled for an outpatient MRI of her neck on 07/23/17. We will have the patient see Physical Therapy and Occupational Therapy to eval her need for rehab. I recommend considering asking Rheumatology to consult on the patient if she continues to have progressive weakness in her upper extremities. We will also obtain urinalysis as the patient has been prone to urinary tract infections in the past and this could also be contributing to her weakness. 3. Electrolyte abnormality. Hypomagnesemia - We will give her replacement today and recheck in the AM. 4. Rheumatoid arthritis. The patient will be continued on her home Plaquenil and prednisone. She is no longer taking Prolia at this time due to her chronic wound. 5. History of coronary artery disease. The patient will be continued on her home metoprolol, aspirin, and atorvastatin. 6. Chronic obstructive pulmonary disease. The patient has no signs of acute chronic obstructive pulmonary disease exacerbation at this time. She will have albuterol as needed for shortness of breath or wheeze. She is not on maintenance inhalers. 7. History of congestive heart failure. She currently does not appear to be in exacerbation. She will be continued on her home furosemide. She will have daily weights and strict I's and O's. 8. Hypertension. The patient seems slightly hypertensive in the emergency room , I suspect some of this is secondary to her pain. It is unclear if she has taken her medications at home today. She will be continued on her metoprolol for now. 9. Hyperlipidemia. The patient will be continued on her home atorvastatin. 10. History of gastroesophageal reflux disease. The patient will be continued on her home omeprazole. 11. Hypothyroidism. The patient's TSH is 0.57. She will be continued on her home levothyroxine. 12. Chronic pain. The patient will be continued on her home fentanyl patch and oxycodone. 13. Depression. The patient will be continued on her home bupropion. 14. Fluids, electrolytes, and nutrition. The patient will be on heart-healthy diet. 15. Code status. Full code. 16. DVT prophylaxis. The patient is at a moderate risk and will have subcu heparin. 17. Disposition. Inpatient half-way care for bilateral upper extremity weakness. TIME SPENT: Time for this admission was approximately 60 minutes, greater than half of that was spent with the patient and her daughter discussing medications , past medical history, and the events leading to her arrival today. The case has been reviewed with the attending, Dr. Flores, who agrees with the plan of care. Reviewed by ROXANNE NEGRO 07/18/17 [id number]/[facility] #: [id number] PHUC
[2017-07-17] MEDS: Docusate CAP* 100 MG PO SCH (21:39)
[2017-07-17] MEDS: Metoprolol Tartrate TAB* 25 MG PO SCH (21:39)
[2017-07-17] MEDS: Gabapentin CAP(*) 300 MG PO SCH (21:39)
[2017-07-17] MEDS: Heparin VIAL(*) 5000 UNITS/ML VIAL (FIVE THOUSAND) SUBCUT SCH (21:40)
[2017-07-18] MEDS: oxyCODONE TAB* 5 MG TAB PO PRN ×4 (04:07→20:19)
[2017-07-18] MEDS: Heparin VIAL(*) 5000 UNITS/ML VIAL (FIVE THOUSAND) SUBCUT SCH ×3 (04:07→20:20)
[2017-07-18] MEDS: Levothyroxine TAB* 75 MCG TAB PO SCH (04:07)
[2017-07-18 07:31] LABS: Calcium 8.8 mg/dL (8.6-10.3); Magnesium 2.1 mg/dL (1.9-2.7); Potassium 3.6 mmol/L (3.5-5.0)
[2017-07-18] MEDS: Omeprazole CAP* 20 MG PO SCH (08:52)
[2017-07-18] MEDS: BuPROPion XL* 300 MG TAB.XL PO SCH (08:53)
[2017-07-18] MEDS: Aspirin EC Low Dose* 81 MG TAB.EC PO SCH (08:53)
[2017-07-18] MEDS: Docusate CAP* 100 MG PO SCH ×2 (08:54→20:18)
[2017-07-18] MEDS: Metoprolol Tartrate TAB* 25 MG PO SCH ×2 (08:55→20:25)
[2017-07-18] MEDS: Sulfamethox/Trimethoprim DS 800/160* TAB PO SCH (08:55)
[2017-07-18] MEDS: Hydroxychloroquine TAB* 200 MG PO SCH (08:57)
[2017-07-18] MEDS: predniSONE TAB* 10 MG PO SCH (08:58)
[2017-07-18] MEDS: Folic Acid TAB* 1 MG PO SCH (08:58)
[2017-07-18] MEDS: Furosemide TAB* 20 MG PO SCH (08:58)
[2017-07-18] MEDS: Gabapentin CAP(*) 300 MG PO SCH ×2 (08:59→20:19)
[2017-07-18] MEDS: Potassium Chlor TAB* 20 MEQ TAB.ER PO SCH (09:00)
[2017-07-18] MEDS: Acetaminophen TAB* 325 MG PO PRN ×2 (14:31→20:19)
[2017-07-18] MEDS: Atorvastatin* 20 MG TAB PO SCH (17:49)
--- NOTE | 2017-07-18 18:00 | PN ---
Subjective Date of Service: 07/18/17 Interval History: Patient complains of unimproved weakness and numbness in the complete bilateral hands. Patient states that this was present before but was mild enough that she was able to take care of herself and now she is unable to do so. 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 Patient also complains of shooting pains down the backs of her legs that are worse with movement and have been getting worse over the course of several weeks. Patient also complains of sharp pain shooting up the side of her head which has been worsening over the same timeframe. Patient denies F/C,N/V, abdominal pain, CP, SOB, Abdominal pain, dysuria, dizziness. Family History: Unchanged from Admission Social History: Unchanged from Admission Past Medical History: Unchanged from Admission Objective Active Medications: Acetaminophen (Tylenol Tab*) 650 mg PO Q6H PRN PRN Reason: PAIN Last Admin: 07/18/17 14:31 Dose: 650 mg Albuterol (Ventolin 2.5 Mg/3 Ml Neb.Allison*) 2.5 mg INH Q4H PRN PRN Reason: sob/wheezing Aspirin (Aspirin Ec Low Dose*) 81 mg PO DAILY [facility] Last Admin: 07/18/17 08:53 Dose: 81 mg Atorvastatin Calcium (Lipitor*) 20 mg PO QPM [facility] Last Admin: 07/18/17 17:49 Dose: 20 mg Bupropion HCl (Bupropion Xl*) 300 mg PO QAM [facility] Last Admin: 07/18/17 08:53 Dose: 300 mg Docusate Sodium (Colace Cap*) 100 mg PO BID [facility] Last Admin: 07/18/17 08:54 Dose: 100 mg Fentanyl (Duragesic Patch 50 Mcg/Hr*) 50 mcg TRANSDERM Q72H [facility] Last Admin: 07/17/17 16:56 Dose: 50 mcg Folic Acid (Folvite Tab*) 1 mg PO QAM [facility] Last Admin: 07/18/17 08:58 Dose: 1 mg Furosemide (Lasix Tab*) 10 mg PO DAILY [facility] Last Admin: 07/18/17 08:58 Dose: Not Given Gabapentin (Neurontin Cap(*)) 300 mg PO BID [facility] Last Admin: 07/18/17 08:59 Dose: 300 mg Heparin Sodium (Porcine) (Heparin Vial(*)) 5,000 units SUBCUT Q8HR [facility] Last Admin: 07/18/17 14:32 Dose: 5,000 units Hydroxychloroquine Sulfate (Plaquenil Tab*) 200 mg PO DAILY [facility] Last Admin: 07/18/17 08:57 Dose: 200 mg Levothyroxine Sodium (Synthroid Tab*) 75 mcg PO 0600 [facility] Last Admin: 07/18/17 04:07 Dose: 75 mcg Metoprolol Tartrate (Lopressor Tab*) 25 mg PO BID [facility] Last Admin: 07/18/17 08:55 Dose: 25 mg Omeprazole (Prilosec Cap*) 20 mg PO 0730 [facility] Last Admin: 07/18/17 08:52 Dose: 20 mg Oxycodone HCl (Roxycodone Tab*) 5 mg PO Q4H PRN PRN Reason: PAIN - MODERATE TO SEVERE Last Admin: 07/18/17 14:31 Dose: 5 mg Potassium Chloride (Klor Con Er Tab*) 20 meq PO DAILY [facility] Last Admin: 07/18/17 09:00 Dose: 20 meq Prednisone (Deltasone Tab*) 5 mg PO DAILY [facility] Last Admin: 07/18/17 08:58 Dose: 5 mg Trimethoprim/Sulfamethoxazole (Bactrim Ds 800/160 Tab*) 1 tab PO DAILY [facility] Last Admin: 07/18/17 08:55 Dose: 1 tab Vital Signs 07/17/17 07/17/17 07/17/17 19:26 19:31 21:39 Temperature 98.1 F Pulse Rate 79 Respiratory 18 18 18 Rate Blood Pressure 150/64 (mmHg) O2 Sat by Pulse 96 Oximetry 07/17/17 07/18/17 07/18/17 23:53 01:15 03:57 Temperature 97.9 F 98.2 F Pulse Rate 72 82 Respiratory 16 18 17 Rate Blood Pressure 147/64 161/59 (mmHg) O2 Sat by Pulse 94 96 Oximetry 07/18/17 07/18/17 07/18/17 04:07 05:51 07:34 Temperature 97.9 F Pulse Rate 93 Respiratory 18 18 20 Rate Blood Pressure 157/71 (mmHg) O2 Sat by Pulse 98 Oximetry 07/18/17 07/18/17 07/18/17 08:00 08:54 08:59 Temperature Pulse Rate Respiratory 16 16 16 Rate Blood Pressure (mmHg) O2 Sat by Pulse Oximetry 07/18/17 07/18/17 07/18/17 11:36 14:31 15:41 Temperature 99.4 F Pulse Rate 79 Respiratory 17 17 16 Rate Blood Pressure 113/45 (mmHg) O2 Sat by Pulse 96 Oximetry 07/18/17 16:09 Temperature 98.9 F Pulse Rate Respiratory Rate Blood Pressure (mmHg) O2 Sat by Pulse Oximetry Oxygen Devices in Use Now: None Appearance: Patient is a 72yo female who appears older than stated age and is sitting in the bed in [facility]. Eyes: No Scleral Icterus, PERRLA Ears/Nose/Mouth/Throat: NL Teeth, Lips, Gums, Clear Oropharnyx, Mucous Membranes Moist Neck: NL Appearance and Movements; NL JVP, Trachea Midline Respiratory: Symmetrical Chest Expansion and Respiratory Effort, Clear to Auscultation Cardiovascular: NL Sounds; No Murmurs; No JVD, RRR, No Edema Abdominal: NL Sounds; No Tenderness; No Distention, No Hepatosplenomegaly Lymphatic: No Cervical Adenopathy Extremities: No Edema, No Clubbing, Cyanosis, - - Darkening of skin around the hands. Fasiculations in the right hand around the base of first finger. Atrophy of the right thenar eminance. Positive Tinel's B/L. Skin: - - Ulcer on Buttock covered by dressing which patient declines to have removed. Neurological: Alert and Oriented x 3, - - 3/5 strength in B/L UE throughout. No sensation to light touch in any dermatome on either hand. Intact in upper arms. 4/5 strength symmetrically in B/L LE proximally and distally. Result Diagrams: 07/17/17 10:15 07/18/17 06:43 Additional Lab and Data: Lab Results Assess/Plan/Problems-Billing Assessment: Patient is a 72yo female with a PMH significant fro RA, CAD, PAD, Hypothyroid, Recurrent UTI and chronic pain who presents with weakness and numbness of the B/ L upper extremity and a UTI who is admitted fdc pending possible placement. - Patient Problems (1) Weakness Current Visit: Yes Status: Acute Code(s): R53.1 - WEAKNESS SNOMED Code(s) : 20793958 Comment: Patient has weakness and numbness in B/L UE which has been progressing. Patient denies any recent changes in medications or diet. Patient has RA which she is on chronic prednisone and plaquenil for. Patient also has a previous fracture of the cervical spine with surgical repair. Patient denies any trauma to her neck. Patient has bilateral Tinel's signs in wrists but has numbness that does not follow a dermatomal pattern or a pattern that corresponds to nerves in the hands. Possible exacerbation of preexisting weakness due to RA from UTI. Will order labs for possible peripheral neuropathy though that is unlikely due to speed of onset. Will consider rheumatology consult and MRI if no improvement. (2) Buttock wound Current Visit: No Status: Acute Code(s): S31.809A - UNSPECIFIED OPEN WOUND OF UNSPECIFIED BUTTOCK, INIT ENCNTR SNOMED Code(s): 21016984 Comment: Wound clinic follows outpatient. Will consult for dressing changes. Not visualized today. (3) Diastolic CHF Current Visit: Yes Status: Acute Code(s): I50.30 - UNSPECIFIED DIASTOLIC ( CONGESTIVE) HEART FAILURE SNOMED Code(s): 032698647 Comment: No current symptoms of exacerbation. Will monitor strict I/O and Daily Weights. (4) Chronic pain Current Visit: No Status: Acute Code(s): G89.29 - OTHER CHRONIC PAIN SNOMED Code(s): 05997263 Comment: Continue Fentanyl patch, gabapentin, and oxycodone. (5) UTI (urinary tract infection) Current Visit: No Status: Acute Comment: Culture Grew Klebsiella Pneumonia again. Will Continue with Bactrim for extended course due to recurrent UTI. Possibly contributing to weakness. (6) Anemia Current Visit: No Status: Chronic Code(s): D64.9 - ANEMIA, UNSPECIFIED SNOMED Code(s): 594476959 Comment: Minor, Essentially at Baseline, will monitor. (7) Rheumatoid arthritis Current Visit: No Status: Chronic Code(s): M06.9 - RHEUMATOID ARTHRITIS, UNSPECIFIED SNOMED Code(s): 89513495 Comment: Continue prednisone and plaquenil. (8) COPD (chronic obstructive pulmonary disease) Current Visit: No Status: Chronic Code(s): J44.9 - CHRONIC OBSTRUCTIVE PULMONARY DISEASE, UNSPECIFIED SNOMED Code(s): 50170408 Comment: No evidence of exacerbation. (9) HTN (hypertension) Current Visit: No Status: Chronic Code(s): I10 - ESSENTIAL (PRIMARY) HYPERTENSION SNOMED Code(s): 71189848 Comment: Continue Lopressor. Normotensive (10) Hypothyroidism Current Visit: No Status: Chronic Code(s): E03.9 - HYPOTHYROIDISM, UNSPECIFIED SNOMED Code(s): 91531178 Comment: Continue Levothyroxine. (11) DVT prophylaxis Current Visit: No Status: Acute Code(s): TLQ4492 - SNOMED Code(s): 478330309 Comment: SQ Heparin Status and Disposition: Patient is admitted custodially pending possible placement.
[2017-07-19] MEDS: Acetaminophen TAB* 325 MG PO PRN ×3 (02:43→17:38)
[2017-07-19] MEDS: oxyCODONE TAB* 5 MG TAB PO PRN ×4 (02:43→17:38)
[2017-07-19] MEDS: Heparin VIAL(*) 5000 UNITS/ML VIAL (FIVE THOUSAND) SUBCUT SCH ×3 (05:41→21:19)
[2017-07-19] MEDS: Levothyroxine TAB* 75 MCG TAB PO SCH (05:41)
[2017-07-19] MEDS: Omeprazole CAP* 20 MG PO SCH (05:41)
[2017-07-19 05:49] LABS: Hematocrit 33 % (35-47); Hemoglobin 10.5 g/dl (12.0-16.0); Mean Corpuscular HGB Conc 32 g/dl (31-36); Mean Corpuscular Hemoglobin 27 pg (27-31); Mean Corpuscular Volume 82 fL (80-97); Mean Platelet Volume 7 um3 (7.4-10.4); Red Blood Count 3.98 10^6/ul (4.0-5.4); Red Cell Distribution Width 15 % (10.5-15); White Blood Count 6.3 10^3/ul (3.5-10.8)
[2017-07-19 06:09] LABS: BUN/Creatinine Ratio 21.3 (8-20); Calcium 8.7 mg/dL (8.6-10.3); EGFR African American 123.3 (>60); EGFR Non-African American 95.9 (>60); Potassium 3.8 mmol/L (3.5-5.0)
[2017-07-19] MEDS: Docusate CAP* 100 MG PO SCH ×2 (10:22→21:09)
[2017-07-19] MEDS: Hydroxychloroquine TAB* 200 MG PO SCH (10:23)
[2017-07-19] MEDS: Sulfamethox/Trimethoprim DS 800/160* TAB PO SCH (10:23)
[2017-07-19] MEDS: Folic Acid TAB* 1 MG PO SCH (10:23)
[2017-07-19] MEDS: Metoprolol Tartrate TAB* 25 MG PO SCH ×2 (10:24→21:09)
[2017-07-19] MEDS: Gabapentin CAP(*) 300 MG PO SCH ×2 (10:24→21:08)
[2017-07-19] MEDS: Aspirin EC Low Dose* 81 MG TAB.EC PO SCH (10:24)
[2017-07-19] MEDS: Potassium Chlor TAB* 20 MEQ TAB.ER PO SCH (10:24)
[2017-07-19] MEDS: BuPROPion XL* 300 MG TAB.XL PO SCH (10:24)
[2017-07-19] MEDS: predniSONE TAB* 10 MG PO SCH (10:32)
[2017-07-19] MEDS: Furosemide TAB* 20 MG PO SCH (10:33)
[2017-07-19] MEDS: Atorvastatin* 20 MG TAB PO SCH (17:39)
--- NOTE | 2017-07-19 17:47 | PN ---
Subjective Date of Service: 07/19/17 Interval History: Patient has no improvement in her weakness or pain. Patient is a 2 person assist to the commode. Patient and family concerned about neck and possible medication causes of weakness. Patient noticed new cloudiness in her urine and has a difficult time initiating her stream. Patient has numbness in her fingertips. Patient has better color in arms than yesterday. Wound dressing changed by wound team. Patient offered bed at [facility]. Patient denies F/C, N/V, Abdominal Pain, dizziness CP, SOB. Patient complains of generalized pain consistent with yesterday. Family History: Unchanged from Admission Social History: Unchanged from Admission Past Medical History: Unchanged from Admission Objective Active Medications: Acetaminophen (Tylenol Tab*) 650 mg PO Q6H PRN PRN Reason: PAIN Last Admin: 07/19/17 17:38 Dose: 650 mg Albuterol (Ventolin 2.5 Mg/3 Ml Neb.Allison*) 2.5 mg INH Q4H PRN PRN Reason: sob/wheezing Aspirin (Aspirin Ec Low Dose*) 81 mg PO DAILY [facility] Last Admin: 07/19/17 10:24 Dose: 81 mg Atorvastatin Calcium (Lipitor*) 20 mg PO QPM [facility] Last Admin: 07/19/17 17:39 Dose: 20 mg Bupropion HCl (Bupropion Xl*) 300 mg PO QAM [facility] Last Admin: 07/19/17 10:24 Dose: 300 mg Docusate Sodium (Colace Cap*) 100 mg PO BID [facility] Last Admin: 07/19/17 10:22 Dose: 100 mg Fentanyl (Duragesic Patch 50 Mcg/Hr*) 50 mcg TRANSDERM Q72H [facility] Last Admin: 07/17/17 16:56 Dose: 50 mcg Folic Acid (Folvite Tab*) 1 mg PO QAM [facility] Last Admin: 07/19/17 10:23 Dose: 1 mg Furosemide (Lasix Tab*) 10 mg PO DAILY [facility] Last Admin: 07/19/17 10:33 Dose: 10 mg Gabapentin (Neurontin Cap(*)) 300 mg PO BID [facility] Last Admin: 07/19/17 10:24 Dose: 300 mg Heparin Sodium (Porcine) (Heparin Vial(*)) 5,000 units SUBCUT Q8HR [facility] Last Admin: 07/19/17 13:34 Dose: 5,000 units Levothyroxine Sodium (Synthroid Tab*) 75 mcg PO 0600 [facility] Last Admin: 07/19/17 05:41 Dose: 75 mcg Metoprolol Tartrate (Lopressor Tab*) 25 mg PO BID [facility] Last Admin: 07/19/17 10:24 Dose: 25 mg Omeprazole (Prilosec Cap*) 20 mg PO 0730 [facility] Last Admin: 07/19/17 05:41 Dose: 20 mg Oxycodone HCl (Roxycodone Tab*) 5 mg PO Q4H PRN PRN Reason: PAIN - MODERATE TO SEVERE Last Admin: 07/19/17 17:38 Dose: 5 mg Potassium Chloride (Klor Con Er Tab*) 20 meq PO DAILY [facility] Last Admin: 07/19/17 10:24 Dose: 20 meq Prednisone (Deltasone Tab*) 5 mg PO DAILY [facility] Last Admin: 07/19/17 10:32 Dose: 5 mg Trimethoprim/Sulfamethoxazole (Bactrim Ds 800/160 Tab*) 1 tab PO DAILY [facility] Last Admin: 07/19/17 10:23 Dose: 1 tab Vital Signs 07/18/17 07/18/17 07/18/17 20:00 20:17 20:19 Temperature 99.7 F Pulse Rate 81 Respiratory 18 18 18 Rate Blood Pressure 111/47 (mmHg) O2 Sat by Pulse 93 Oximetry 07/18/17 07/19/17 07/19/17 23:56 01:38 02:43 Temperature 98.1 F Pulse Rate 72 Respiratory 16 18 18 Rate Blood Pressure 112/44 (mmHg) O2 Sat by Pulse 96 Oximetry 07/19/17 07/19/17 07/19/17 02:50 05:33 07:32 Temperature 97.6 F Pulse Rate 82 Respiratory 16 18 18 Rate Blood Pressure 137/49 (mmHg) O2 Sat by Pulse 94 Oximetry 07/19/17 07/19/17 07/19/17 07:34 07:35 10:24 Temperature 98.0 F Pulse Rate 89 Respiratory 20 18 18 Rate Blood Pressure 146/62 (mmHg) O2 Sat by Pulse 94 Oximetry 07/19/17 07/19/17 07/19/17 11:54 12:18 12:20 Temperature 98.7 F Pulse Rate 75 Respiratory 18 16 16 Rate Blood Pressure 111/42 (mmHg) O2 Sat by Pulse 95 Oximetry 07/19/17 07/19/17 07/19/17 12:26 14:02 17:38 Temperature Pulse Rate Respiratory 16 16 16 Rate Blood Pressure (mmHg) O2 Sat by Pulse Oximetry Oxygen Devices in Use Now: None Appearance: Patient is a 72yo female who appears stated age and is sitting in the bed in NAD. Eyes: No Scleral Icterus, PERRLA Ears/Nose/Mouth/Throat: NL Teeth, Lips, Gums, Clear Oropharnyx, Mucous Membranes Moist Neck: NL Appearance and Movements; NL JVP, Trachea Midline Respiratory: Symmetrical Chest Expansion and Respiratory Effort, Clear to Auscultation Cardiovascular: NL Sounds; No Murmurs; No JVD, RRR, No Edema Abdominal: NL Sounds; No Tenderness; No Distention, No Hepatosplenomegaly Lymphatic: No Cervical Adenopathy Extremities: No Edema, No Clubbing, Cyanosis, - - Neurological and musculoskeltal exam consistent with previous. Skin: No Rash or Ulcers, No Nodules or Sclerosis Neurological: Alert and Oriented x 3, - - CN II-XII intact. Negative Spurlings B /L. Stable neurological deficits Result Diagrams: 07/19/17 05:41 07/19/17 05:41 Additional Lab and Data: Lab Results Assess/Plan/Problems-Billing Assessment: Patient is a 72yo female with a PMH significant fro RA, CAD, PAD, Hypothyroid, Recurrent UTI and chronic pain who presents with weakness and numbness of the B/ L upper extremity and a UTI who is admitted intermediate pending possible placement. - Patient Problems (1) Weakness Current Visit: Yes Status: Acute Code(s): R53.1 - WEAKNESS SNOMED Code(s) : 29746020 Comment: Appreciate rheumatological consult. Patient has weakness and numbness in B/L UE which has been progressing. Patient was started on Plaquenil in February. Patient has RA which she is on chronic prednisone and plaquenil for. Patient also has a previous fracture of the cervical spine with surgical repair. Patient denies any trauma to her neck. Patient has bilateral Tinel's signs in wrists but has numbness that does not follow a dermatomal pattern or a pattern that corresponds to nerves in the hands. Possible exacerbation of preexisting weakness due to RA from UTI. Labs for peripheral neuropathy negative. PRERNA, RA, SPEP pending. Plaquenil stopped per rheumatology due to possible AE of myopathy. Will add on CK. Will not replace at this time due to concerns about chronic buttock wound. MRI of spine taken and read pending. Should follow up with Neurology outpatient. (2) Buttock wound Current Visit: No Status: Acute Code(s): S31.809A - UNSPECIFIED OPEN WOUND OF UNSPECIFIED BUTTOCK, INIT ENCNTR SNOMED Code(s): 22202859 Comment: Wound clinic follows outpatient. Appreciate input. Dressing changed today. Not visualized today. (3) Diastolic CHF Current Visit: Yes Status: Acute Code(s): I50.30 - UNSPECIFIED DIASTOLIC ( CONGESTIVE) HEART FAILURE SNOMED Code(s): 710049498 Comment: No current symptoms of exacerbation. Will monitor strict I/O and Daily Weights. (4) Chronic pain Current Visit: No Status: Acute Code(s): G89.29 - OTHER CHRONIC PAIN SNOMED Code(s): 65338142 Comment: Continue Fentanyl patch, gabapentin, and oxycodone. (5) UTI (urinary tract infection) Current Visit: No Status: Acute Comment: Culture Grew Klebsiella Pneumonia again. Will Continue with Bactrim for extended course due to recurrent UTI. Possibly contributing to weakness. Susceptible to Bactrim, will continue for a total of 7 days. (6) Anemia Current Visit: No Status: Chronic Code(s): D64.9 - ANEMIA, UNSPECIFIED SNOMED Code(s): 545927600 Comment: Minor, Essentially at Baseline, will monitor. (7) Rheumatoid arthritis Current Visit: No Status: Chronic Code(s): M06.9 - RHEUMATOID ARTHRITIS, UNSPECIFIED SNOMED Code(s): 26099289 Comment: Appreciate rheumatology input. Plaquenil stopped. (8) COPD (chronic obstructive pulmonary disease) Current Visit: No Status: Chronic Code(s): J44.9 - CHRONIC OBSTRUCTIVE PULMONARY DISEASE, UNSPECIFIED SNOMED Code(s): 73034489 Comment: No evidence of exacerbation. (9) HTN (hypertension) Current Visit: No Status: Chronic Code(s): I10 - ESSENTIAL (PRIMARY) HYPERTENSION SNOMED Code(s): 55540687 Comment: Continue Lopressor. Normotensive (10) Hypothyroidism Current Visit: No Status: Chronic Code(s): E03.9 - HYPOTHYROIDISM, UNSPECIFIED SNOMED Code(s): 85659504 Comment: Continue Levothyroxine. (11) DVT prophylaxis Current Visit: No Status: Acute Code(s): XFI5352 - SNOMED Code(s): 332837733 Comment: SQ Heparin Status and Disposition: Patient is admitted custodially, Will discharge to [facility] tomorrow.
--- NOTE | 2017-07-19 18:19 | CONSULT ---
Consult Consult: Ms. Parks is a 72 year old woman with long standing RA hospitalized with a bladder infection. She had been on biologic therapy which was held earlier this year due to chronic wound infection. She has been on Plaquenil for the past few months. She has noted progressive weakness and dysesthesias in her upper as well as lower extremity. Of note, she also has chronic neck pain related to OA. An MRI was done today and the results are pending. In assessment her weakness could be multifactorial. Per discussion, please hold her Plaquenil, as it may rarely be associated with neuromyopathy, although I am also wondering about an atypical side effect to her statin which can also cause myopathy with long standing therapy. Consider checking CK as well. Consider neurology evaluation, which may be done after her transfer to [place] if this is to be done soon. While I think that her inflammatory markers are more likely related to her ongoing infections, they could also be in part related to her RA. While we should avoid immunosuppressive therapy until she has a skin graft for her wound infection, it should be noted that there is some limited evidence that Doxycycline does help RA. If it is felt that Doxycycline may help her underlying infection and it should be added her to antimicrobial regimen, then this medication may also help her RA.
--- NOTE | 2017-07-19 23:37 | CONS ---
CONSULTATION REPORT: DATE OF CONSULT: 07/19/17 CONSULTING PROVIDER: LATISHA Little REASON FOR CONSULT: Weakness in the setting of rheumatoid arthritis. HISTORY OF PRESENT ILLNESS: Ms. Parks is a 72-year-old woman with a long- standing history of rheumatoid arthritis. She is followed primarily by her nurse practitioner in the rheumatology clinic. She was admitted to the hospital for complications of a bladder infection and was found to have progressive upper extremity weakness to the point that it is difficult to feed herself or do other activities. She is also very restricted in terms of ambulation. Of note, over the past couple of months, she has held her Actemra in the summer, as she developed a chronic wound infection and she has been on Plaquenil therapy over the last few months as a milder immunomodulating agent to help her rheumatoid arthritis. In terms of a more recent history, she is currently planning to get a skin graft for her chronic wound infection, which has failed to improve with conservative therapy. Her main complaint this evening is the progressive weakness, difficulty with mobilization. As noted above, she has a history of coronary artery disease with cardiac stenting, peripheral arterial disease, COPD, history of DVT, hypothyroidism, congestive heart failure, hyperlipidemia, gastroesophageal reflux disease as well. She presented as noted above with upper extremity weakness and numbness for about 2 weeks, which is progressive. She also reported left-sided neck and ear tingling , intermittent with ear pain. She also has a history of degenerative disk disease of the cervical spine and an MRI of the neck is pending at this point in time. The results are pending. She has had difficulty getting around in a wheelchair and currently requires assistance even with feeding. Of note, she was also treated for her urinary tract infection from the 06/16/17 through 06/17 as well too. She had an observation stay for chest pain and shortness of breath and CHF exacerbation on 06/14/17. So, she has had several ER visits in the recent past as well as hospitalizations. She currently, however, denies any fever, chest pain, cough, shortness of breath , nausea, vomiting, or diarrhea. She did have some dizziness with standing but this has resolved, but she has not been walking recently. She does have chronic back and lower extremity pain and she had some rib pain, which is largely resolved. She has chronic deformities from rheumatoid arthritis as well and a history of cervical spine fracture and surgery. She has been on Prolia as well for osteoporosis, which has also been on hold. In the ER, she had been given meclizine as well as normal saline. Workup revealed an anemia and an elevated CRP of 99.82. She was also noted to have a chronic left buttock wound , which she has been following up at the wound clinic as well for. She had an EKG in the ER showing sinus rhythm. In terms of her rheumatologic history, she has a history of severe deforming rheumatoid arthritis with a very high rheumatoid factor and a CCP greater than 250. She had been treated with prednisone and she has also been on chronic low-dose prednisone. She had been treated with Actemra and she has also been on chronic low-dose prednisone. She did not tolerate methotrexate in the past due to elevated liver test. She has been seen by Maxx Hughes, our nurse practitioner, on 03/12/17. In terms of her arthritic history, she has also been seen by a prior operation manager, Dr. rGiffith, prior to our clinic. She has been wheelchair bound since 2000. She had in the remote past been treated with Humira followed by Hanna, then Lianne, and she has been on long-term steroid use. She has seen Dr. Everett as well. Actemra was started on 09/12/14 with a marked improvement in her symptoms and normalization of inflammatory markers in 3 months. However, this has been held due to her recent infection. She also has a history of pyelonephritis in March of 2015 with a back pain exacerbation and constipation. She was also hospitalized with colitis in June 2015. She has had high inflammatory markers in the past when Actemra was held for infection. Actemra has had a good effect on symptoms of systemic inflammation but has been held recently. Her RA, however, has been overall fairly stable. PAST MEDICAL HISTORY: Includes: 1. CHF. 2. Hypertension. 3. Hyperlipidemia. 4. Rheumatoid arthritis. 5. Gastroesophageal reflux disease. 6. Peripheral arterial disease. 7. COPD. 8. History of DVT. PAST SURGICAL HISTORY: Includes: 1. Status post bunionectomy. 2. Status post hysterectomy. 3. C-spine surgery. 4. Status post bilateral cataract extractions. 5. Status post cardiac catheterization with stenting. 6. Status post colectomy. MEDICATIONS: Home meds include: 1. Prednisone 5 mg daily. 2. Oxycodone 5 mg every 4 to 6 hours as needed. 3. Fentanyl 50 mcg transdermal patch every 24 hours. 4. Potassium chloride. 5. Omeprazole. 6. Metoprolol. 7. Levothyroxine 75 mcg daily. 8. Plaquenil 200 mg daily. 9. Gabapentin 300 mg twice daily. 10. Furosemide 10 mg daily. 11. Folic acid. 12. Colace. 13. Bupropion XL 300 mg orally every day. 14. Atorvastatin 20 mg daily. 15. Aspirin daily. 16. Albuterol as needed. 17. Acetaminophen. ALLERGIES: Include CEPHALOSPORINS and LATEX. FAMILY HISTORY: Negative for coronary artery disease or diabetes mellitus. There is a family history of lung cancer. SOCIAL HISTORY: She is a former smoker. She denies any alcohol use or recreational use. She lives alone and has had home health personal caregiver to assist her with living. Her daughters are also very supportive as well too. REVIEW OF SYSTEMS: General: Fatigue as noted above. HEENT: Mildly dry eyes and dry mouth, but overall stable. No jaw pain. No visual symptoms. Cardiac: Denies current chest wall pain. Pulmonary: Denies acute shortness of breath. GI : Denies abdominal pain. She has had constipation in the past. : She has had cystitis and bladder infections. No blood in the urine or stool. Skin: Denies any rash. She does have mildly dry skin. Musculoskeletal: As noted above with chronic deformities. Neurologic: As noted above. Psychiatric: No recent changes. No recent anxiety except for her concern regarding her long- standing chronic issues. Other 14-point review of systems was reviewed and was otherwise negative. PHYSICAL EXAM: She is a pleasant woman, sitting up, in no acute distress, but is currently having dinner and somebody is assisting her because she is unable to reach to her mouth with silverware due to the upper extremity weakness. Temperature is 97.5 initially with a heart rate of 74, respiratory rate of 14, O2 sat is 95% on room air, blood pressure initially 158/70. HEENT: Normocephalic, atraumatic. Pupils are equal, round, and reactive to light and accommodate. Extraocular movements are intact. Lungs revealed no accessory muscle use. Lungs are clear to auscultation bilaterally. Cardiovascular exam revealed a regular rate and rhythm. Normal S1 and S2. No murmurs, rubs, or gallops. Abdomen: Soft, nontender, and nondistended with bowel sounds present x4 with no organomegaly, no hepatosplenomegaly. Extremities: Mild bilateral lower extremity edema. Dorsalis pedis pulses were intact. Posterior tibial pulses were present as well. Neurologic: She was oriented x4. Cranial nerves II through XII were grossly intact; however, she did have 3+/5 strength in the biceps and triceps. She was unable to raise her hands above about 45 degrees due to the weakness in her shoulders. She did have full motor strength of her plantar flexors and in her ankles as well as full dorsiflexion and plantarflexion of her ankles as well as her knees and her quad strength was 4+/ 5. Musculoskeletal exam is notable for chronic ulnar deviation at the MCP joint as well as MTP deviation of the feet. She has no active synovitis, but she did have shoulder restriction as well as cervical spine restriction and chronic stigmata of osteoarthritis with significant varus deformity of both knees. There is no cyanosis or clubbing noted. There is no tenderness to palpation of her spine. Psychiatric: Pleasant affect. Skin: There are no rashes or abnormalities. She has a chronic left buttock wound. DIAGNOSTIC STUDIES/LAB DATA: She had a sodium of 131, potassium 4.2, chloride of 96, CO2 of 28, BUN 14, creatinine 0.50, glucose of 87, magnesium of 1.8. CRP of 99.82. White count of 8.8, hemoglobin of 11, hematocrit 34, and platelet count of 306,000. In terms of other prior studies, she had a chest x-ray on 06/15/17 with findings of COPD with compression fractures of lower dorsal vertebrae, not well defined in study. In 06/21/17, her CRP was elevated as well at 53.10 and a sed rate of 66. ASSESSMENT AND PLAN: Ms. Oliver is a 72-year-old woman with a history of chronic bladder infections as well as a chronic wound infection. Immunosuppressive therapy has been on hold. She has been hospitalized with complications from neuropathic discomfort as well as some progressive weakness. Her B12 was normal and a cervical spine MRI result is pending. In terms of her weakness, this may be multifactorial. She has been on biologic therapy, which has been held due to chronic wound infection. She has also been on Plaquenil for the past few months and inflammatory markers have been rising. She has noted progressive weakness as well as dysesthesias in her upper extremity primarily but also to left or extend her lower extremity. Of note, she has chronic neck pain related to osteoarthritis. An MRI was done today and results are pending. In assessment, her weakness could be multifactorial. Per our discussion, please hold her Plaquenil as it may rarely be associated with the neuromyopathy, although I am also wondering about an atypical side effect to her statin, which can also cause myopathy with long-standing therapy. I would also consider checking a CPK to complete her workup, also when she is feeling better and is more clinically stable, consider a complete thyroid evaluation including checking her TSH, it may not be as reliable; however, we will hospitalize on being sick because she has the risk for euthyroid sick syndrome. Consider a neurology evaluation, which may be done after her transfer to [facility]. While I do think that her inflammatory markers are more likely related to her ongoing infection, they could also be in part related to her rheumatoid arthritis. While we should avoid immunosuppressive therapy until she has a skin graft for her wound infection, it should be noted that there is some limited evidence that doxycycline does help rheumatoid arthritis. Therefore, if it is felt the doxycycline may help underlying infection and it should be added to her antimicrobial regimen, then this medication may also help her rheumatoid arthritis. We will continue to follow. TIME SPENT: With the patient was greater than 60 minutes with greater than 50% of the time spent counseling the patient and discussing the case with her Primary care doctor.. [id number]/[facility] #: [id number] PHUC
[2017-07-20] MEDS: oxyCODONE TAB* 5 MG TAB PO PRN ×5 (00:32→21:26)
[2017-07-20] MEDS: Acetaminophen TAB* 325 MG PO PRN ×3 (02:22→19:56)
[2017-07-20] MEDS: Levothyroxine TAB* 75 MCG TAB PO SCH (05:53)
[2017-07-20] MEDS: Heparin VIAL(*) 5000 UNITS/ML VIAL (FIVE THOUSAND) SUBCUT SCH ×2 (05:53→15:08)
[2017-07-20 05:54] LABS: Hematocrit 32 % (35-47); Hemoglobin 10.5 g/dl (12.0-16.0); Mean Corpuscular HGB Conc 33 g/dl (31-36); Mean Corpuscular Hemoglobin 27 pg (27-31); Mean Corpuscular Volume 83 fL (80-97); Mean Platelet Volume 7 um3 (7.4-10.4); Red Cell Distribution Width 15 % (10.5-15); White Blood Count 6.9 10^3/ul (3.5-10.8)
[2017-07-20 06:08] LABS: BUN/Creatinine Ratio 16.9 (8-20); Calcium 8.5 mg/dL (8.6-10.3); EGFR African American 128.1 (>60); EGFR Non-African American 99.6 (>60); Potassium 4.2 mmol/L (3.5-5.0)
--- NOTE | 2017-07-20 08:00 | RAD ---
HISTORY: Rheumatoid arthritis, weakness COMPARISONS: None TECHNIQUE: The following sequences were obtained of the cervical spine: Sagittal T1- and T2-weighted images, sagittal STIR images, axial T2 and gradient echo images. FINDINGS: BRAIN AND SPINAL CORD: The visualized spinal cord is normal in caliber, position, and signal intensity. The visualized portion of the brain is unremarkable. The cerebellar tonsils are normal in position. ALIGNMENT: There is grade 2 anterolisthesis of C2 on C3 and grade 1 anterolisthesis of C3 on C4 and grade 1 anterolisthesis of C7 on T1. VERTEBRAL BODIES: There are lateral mass screws at C2 bilaterally. There are cystic erosive changes of the odontoid process. JOINTS: There is diffuse uncovertebral and facet osteoarthritis. As noted above, there are erosive changes of the atlantoaxial articulation. MUSCULATURE: Unremarkable INTERVERTEBRAL DISCS: There is diffuse loss of intervertebral disc height and T2 signal throughout the spine. AXIAL IMAGES: C1-C2: As noted above, there are erosive changes at the atlantoaxial articulation. C2-C3: There is broad-based disc bulge/rolled disc with ligamentous, facet, and uncovertebral hypertrophy. Evaluation of the neural foramina is limited secondary to metallic susceptibility artifact; however, there appears to be severe bilateral neural foraminal narrowing. There is severe narrowing of the central canal. C3-C4: There is a broad-based disc bulge/rolled disc with bilateral uncovertebral facet hypertrophy. There is severe bilateral neural foraminal narrowing. There is severe narrowing of the central canal. C4-C5: There is bilateral uncovertebral facet hypertrophy. There is moderate bilateral neural foraminal narrowing. There is no significant central canal stenosis. C5-C6: There is right greater than left uncovertebral and facet hypertrophy. There is severe right and moderate left neural foraminal narrowing. There is moderate narrowing of the central canal, with impression upon the dorsal and ventral nerve roots on the right. C6-C7: There is a broad-based disc osteophyte complex bilateral uncovertebral facet hypertrophy. There is severe bilateral neural foraminal narrowing. There is moderate narrowing of the central canal. C7-T1: There is a broad-based disc bulge/rolled disc with bilateral vertebral and facet hypertrophy. There is severe bilateral neural foraminal narrowing. There is moderate to severe narrowing of the central canal. SOFT TISSUES: There is a 1.8 cm cystic nodule of the right thyroid. There is a small mucous retention cyst of the vallecula on the left. OTHER: None. IMPRESSION: 1. EROSIVE CHANGES OF THE ATLANTOAXIAL ARTICULATION CONSISTENT WITH THE HISTORY OF RHEUMATOID ARTHRITIS. 2. DEGENERATIVE DISC DISEASE AND OSTEOARTHRITIS. 3. POSTSURGICAL CHANGE WITH MULTILEVEL SPONDYLOLISTHESIS DESCRIBED ABOVE. 4. THIS RESULTS IN SEVERE NARROWING OF THE CENTRAL CANAL AT C2-C3 AND C3-C4, WITH MODERATE TO SEVERE NARROWING AT C7-T1, AND MODERATE NARROWING AT C6-C7 AND C5-C6. 5. THERE IS MULTILEVEL NEURAL FORAMINAL NARROWING DESCRIBED ABOVE. 6. 1.8 CM CYSTIC NODULE OF THE RIGHT THYROID. RECOMMEND CORRELATION WITH DEDICATED IMAGING OF THE THYROID.
[2017-07-20] MEDS: Metoprolol Tartrate TAB* 25 MG PO SCH ×2 (08:14→19:55)
[2017-07-20] MEDS: predniSONE TAB* 10 MG PO SCH (08:14)
[2017-07-20] MEDS: Furosemide TAB* 20 MG PO SCH (08:14)
[2017-07-20] MEDS: Omeprazole CAP* 20 MG PO SCH (08:14)
[2017-07-20] MEDS: Folic Acid TAB* 1 MG PO SCH (08:14)
[2017-07-20] MEDS: BuPROPion XL* 300 MG TAB.XL PO SCH (08:14)
[2017-07-20] MEDS: Potassium Chlor TAB* 20 MEQ TAB.ER PO SCH (08:14)
[2017-07-20] MEDS: Docusate CAP* 100 MG PO SCH ×2 (08:14→19:56)
[2017-07-20] MEDS: Aspirin EC Low Dose* 81 MG TAB.EC PO SCH (08:14)
[2017-07-20] MEDS: Sulfamethox/Trimethoprim DS 800/160* TAB PO SCH (08:14)
[2017-07-20] MEDS: Gabapentin CAP(*) 300 MG PO SCH ×2 (08:16→19:56)
[2017-07-20] MEDS ORDERED: Ondansetron INJ* 2 MG/ML VIAL IV PRN (09:19)
[2017-07-20] MEDS: Cyclobenzaprine TAB* 10 MG PO PRN ×2 (12:34→19:56)
[2017-07-20 13:37] LABS: Rheumatoid Factor >802 IU/mL (<15)
[2017-07-20 15:01] LABS: Albumin 2.1 g/dL (3.4-4.7); Gamma Globulin 1.4 g/dL (0.6-1.6); Total Protein(PEP) 5.4 g/dL (6.3 - 7.9)
[2017-07-20] MEDS: fentaNYL PATCH 50 MCG/HR TRANSDERM SCH (16:39)
--- NOTE | 2017-07-20 16:48 | CONSULT ---
Consult Consult: Neurosurgery Consult Date of Admission: 07/17/17 Date of Consult: 07/20/17 Reason for Consult: Progressive cervical myelopathy Referring Provider: LATISHA Little HPI: This is a 72 year old female with past medical history significant for PA in 2004 requiring stenting, rheumatoid arthritis, HTN, peripheral arterial disease, COPD and DVT who presented to the [facility] with complaint of progressively worsening bilateral upper extremity pain and numbness beginning 3 weeks ago. She states that she began noticing tingling in the right had about 3 weeks ago and then developed weakness in the upper extremities, worsening to the degree where she is now nearly unable to move the upper extremities. 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 She reports difficulty with fine motor skills. She denies pain in the neck and upper extremities. She denies numbness and tingling in the upper extremities with the exception of the hands. She reports pain in the bilateral lower extremities, worse with standing and ambulating for the past several years. She is unable to ambulate more than 1-2 steps and has been using a wheelchair for the past several years. She has a history of non- traumatic cervical fracture approximately 10 years ago requiring surgical fusion , performed at [facility] by Dr. Cnitron. She also has a history of sacral decubitus ulcer which has been difficult to heal. She has undergone several treatments for this which have been unsuccessful. She follows with the wound clinic at [facility]. Past medical history: 1. CHF 2. HTN 3. HLD 4. Rheumatoid arthritis 5. Peripheral arterial disease 6. COPD 7. DVT 8. Sacral decubitus ulcer 9. Hypothyroidism Past surgical history: 1. Cervical fusion C1-[address] Cintron approximately 10 years ago 2. Bunionectomy 3. Bilateral cataract extraction 4. Hysterectomy 5. Colectomy Home medications: 1. Folic Acid TAB* [Folvite TAB*] 1 mg PO QAM 01/04/13 [History Confirmed ] 2. Atorvastatin* [Lipitor 20 MG*] 20 mg PO QAM 04/11/15 [History Confirmed 07/17] 3. BuPROPion XL* [Bupropion XL*] 300 mg PO QAM 04/11/15 [History Confirmed 07/17] 4. Levothyroxine TAB* [Synthroid 75 MCG TAB*] 75 mcg PO QPM 04/11/15 [History Confirmed 07/17/17] 5. Gabapentin CAP(*) [Neurontin 300 CAP(*)] 300 mg PO BID 05/07/15 [History Confirmed 07/17/17] 6. Metoprolol Tartrate TAB* [Lopressor TAB*] 25 mg PO BID 05/07/15 [History Confirmed 07/17/17] 7. oxyCODONE TAB* [Roxycodone TAB 5 mg*] 5 mg PO .Q4-6H PRN 05/07/15 [History Confirmed 07/17/17] 8. predniSONE TAB* [Deltasone TAB*] 5 mg PO DAILY #0 02/09/17 [Rx Confirmed 10/02] 9. Albuterol 2.5MG/3ML (0.083%)* [Ventolin 2.5 MG/3 ML NEB.TORO*] 2.5 mg INH Q4H PRN #0 ml 03/29/17 [Rx Confirmed 07/17/17] 10. Aspirin EC Low Dose* [Ecotrin EC Low Dose 81 MG*] 81 mg PO DAILY #0 [History Confirmed 07/17/17] 11. Furosemide TAB* [Lasix TAB*] 10 mg PO DAILY #30 tab 06/14/17 [Rx Confirmed 07/17/17] 12. Potassium Chlor TAB* [Potassium Chlor TAB 20 MEQ*] 20 meq PO DAILY 06/14/17 [History Confirmed 07/17/17] 13. fentaNYL PATCH 50 MCG/HR* [Duragesic PATCH 50 Mcg/Hr*] 50 mcg TRANSDERM Q72H 06/14/17 [History Confirmed 07/17/17] 14. Docusate CAP* [Colace Cap*] 100 mg PO BID 06/15/17 [History Confirmed ] 15. Omeprazole CAP* [Prilosec CAP* 20 MG] 20 mg PO DAILY 06/15/17 [History Confirmed 07/17/17] 16. Denosumab(NF) [Prolia(NF)] 60 mg SUBCUT SEE INSTRUCTIONS #0 06/17/17 [Rx Confirmed 07/17/17] 17. Acetaminophen TAB* [Tylenol TAB*] 650 mg PO Q6H PRN tab 07/20/17 [Rx] 18. Cyclobenzaprine TAB* [Flexeril 10 MG TAB*] 10 mg PO TID PRN tab 07/20/17 [ Rx] 19. Ondansetron INJ* [Zofran 2 MG/ML Inj*] 4 mg IV Q4H PRN vial 07/20/17 [Rx] 20. Sulfamethox/Trimethoprim DS* [Bactrim DS 800/160 TAB*] 1 tab PO BID #22 tab 07/20/17 [Rx] Allergies: 1. Cephalosporins 2. Latex Social history: This patient lives at [facility] and received nursing and nursing education specialist care daily. She is a former smoker and does not consume alcohol. ROS: Full ROS completed; pertinent findings stated in HPI and all others negative. Physical exam: Vital Signs: Temp Pulse Resp BP Pulse Ox 98.3 F 73 18 124/46 93 07/20/17 11:14 07/20/17 11:14 07/20/17 16:50 07/20/17 11:14 07/20/17 11:14 General: Elderly female, alert and oriented. No distress. Laying comfortably in bed. HEENT: Head is normocephalic and atraumatic. PERRL, EOMI, sclerae anicteric. Gross hearing intact. Moist mucus membranes. Neck: Neck is supple, symmetric and nontender anteriorly and posteriorly. Mild neck pain with active ROM. CV: Radial pulses 2+ and equal. Pedal pulses difficult to palpate. No cyanosis or clubbing. Lungs: Breathing is nonlabored and lungs are clear. Abdomen: The abdomen is mildly rounded. Hypoactive bowel sounds. Abdomen is soft , nontender and nondistended. Neuro: Oriented x3. Speech is clear and coherent. CN II-XII intact. Sensation in the bilateral hands and lower extremities decreased. Strength in the upper extremities 2+/5. Strength in the lower extremities 4+/5. Absent biceps reflex on the right, 2+ on the left. Negative hoffmans bialterally. Gait not assessed. Extremities: Severe arthritis of the bilateral hands, shoulders, knees left worse than right. Muscle atrophy. Imagin. MRI of the cervical spine on 07/19/17 shows previous fusion, subluxation at C2 -3 and C3-4 with cord compression exhibiting signal change. Assessment: This is a 72 year old female with long standing history of rheumatoid arthritis who presented to the [facility] with complaint of worsening bilateral upper extremity pain over the past 3 weeks. Bilateral upper extremity weakness 2+/5 appreciated on exam. MRI of the cervical spine shows subluxation C2-3 and C3-4 with severe cord compression. This case was discussed with Dr. Fatima. Treatment with surgery was discussed with the patient and she will need to be transferred to [facility] for surgery. She is in agreement with this plan. Plan also discussed with LATISHA Little. Plan: 1. Transfer patient to [facility] in [place], Dr. Taveras neurosurgeon accepting patient.
--- NOTE | 2017-07-20 17:11 | PN ---
Subjective Date of Service: 07/20/17 Interval History: Patient had no improvement in pain in backs of legs or upper extremity weakness since admission. Patient nauseated and given zofran to good effect. Patient complains of difficulty initiating urine stream but has minimal residual on bladder scan. No incontinence of urine or bowels. Patient has sharp intermittent pain radiating up back of head on left side and over right eye. Patient denies any F/C, N/V, CP, SOB, Abdominal Pain, Diarrhea, Constipation ( Last BM on wednesday, normal duration for patient). Patient aware of MRI and would like to pursue surgery and is amenable to transfer to [place]. Family History: Unchanged from Admission Social History: Unchanged from Admission Past Medical History: Unchanged from Admission Objective Active Medications: Acetaminophen (Tylenol Tab*) 650 mg PO Q6H PRN PRN Reason: PAIN Last Admin: 07/20/17 08:13 Dose: 650 mg Albuterol (Ventolin 2.5 Mg/3 Ml Neb.Allison*) 2.5 mg INH Q4H PRN PRN Reason: sob/wheezing Aspirin (Aspirin Ec Low Dose*) 81 mg PO DAILY [facility] Last Admin: 07/20/17 08:14 Dose: 81 mg Atorvastatin Calcium (Lipitor*) 20 mg PO QPM [facility] Last Admin: 07/19/17 17:39 Dose: 20 mg Bupropion HCl (Bupropion Xl*) 300 mg PO QAM [facility] Last Admin: 07/20/17 08:14 Dose: 300 mg Cyclobenzaprine HCl (Flexeril Tab*) 10 mg PO TID PRN PRN Reason: muscle spasm Last Admin: 07/20/17 12:34 Dose: 10 mg Docusate Sodium (Colace Cap*) 100 mg PO BID [facility] Last Admin: 07/20/17 08:14 Dose: 100 mg Fentanyl (Duragesic Patch 50 Mcg/Hr*) 50 mcg TRANSDERM Q72H [facility] Last Admin: 07/20/17 16:39 Dose: 50 mcg Folic Acid (Folvite Tab*) 1 mg PO QAM [facility] Last Admin: 07/20/17 08:14 Dose: 1 mg Furosemide (Lasix Tab*) 10 mg PO DAILY [facility] Last Admin: 07/20/17 08:14 Dose: 10 mg Gabapentin (Neurontin Cap(*)) 300 mg PO BID [facility] Last Admin: 07/20/17 08:16 Dose: 300 mg Heparin Sodium (Porcine) (Heparin Vial(*)) 5,000 units SUBCUT Q8HR [facility] Last Admin: 07/20/17 15:08 Dose: 5,000 units Levothyroxine Sodium (Synthroid Tab*) 75 mcg PO 0600 [facility] Last Admin: 07/20/17 05:53 Dose: 75 mcg Metoprolol Tartrate (Lopressor Tab*) 25 mg PO BID [facility] Last Admin: 07/20/17 08:14 Dose: 25 mg Omeprazole (Prilosec Cap*) 20 mg PO 0730 [facility] Last Admin: 07/20/17 08:14 Dose: 20 mg Ondansetron HCl (Zofran Inj*) 4 mg IV Q4H PRN PRN Reason: NAUSEA Last Admin: 07/20/17 09:55 Dose: 4 mg Oxycodone HCl (Roxycodone Tab*) 5 mg PO Q4H PRN PRN Reason: PAIN - MODERATE TO SEVERE Last Admin: 07/20/17 16:47 Dose: 5 mg Potassium Chloride (Klor Con Er Tab*) 20 meq PO DAILY [facility] Last Admin: 07/20/17 08:14 Dose: 20 meq Prednisone (Deltasone Tab*) 5 mg PO DAILY [facility] Last Admin: 07/20/17 08:14 Dose: 5 mg Trimethoprim/Sulfamethoxazole (Bactrim Ds 800/160 Tab*) 1 tab PO DAILY [facility] Last Admin: 07/20/17 08:14 Dose: 1 tab Vital Signs - 8 hr 07/20/17 07/20/17 07/20/17 11:14 11:50 12:00 Temperature 98.3 F Pulse Rate 73 Respiratory 16 18 18 Rate Blood Pressure 124/46 (mmHg) O2 Sat by Pulse 93 Oximetry 07/20/17 07/20/17 07/20/17 12:34 16:39 16:47 Temperature Pulse Rate Respiratory 20 18 18 Rate Blood Pressure (mmHg) O2 Sat by Pulse Oximetry 07/20/17 07/20/17 16:49 16:50 Temperature Pulse Rate Respiratory 18 18 Rate Blood Pressure (mmHg) O2 Sat by Pulse Oximetry Oxygen Devices in Use Now: None Appearance: Patient is a 72yo female who appears stated age and is sitting in the bed in [facility]. Eyes: No Scleral Icterus, PERRLA Ears/Nose/Mouth/Throat: NL Teeth, Lips, Gums, Clear Oropharnyx, Mucous Membranes Moist Neck: NL Appearance and Movements; NL JVP, Trachea Midline, - - Pain with any manipulation of the neck. Respiratory: Symmetrical Chest Expansion and Respiratory Effort, Clear to Auscultation Cardiovascular: NL Sounds; No Murmurs; No JVD, RRR, No Edema Abdominal: NL Sounds; No Tenderness; No Distention, No Hepatosplenomegaly Lymphatic: No Cervical Adenopathy Extremities: No Edema, - - Darkening of skin around the hands. Fasiculations in the right hand around the base of first finger. Atrophy of the right thenar eminance. Positive Tinel's B/L. Skin: No Rash or Ulcers, No Nodules or Sclerosis Neurological: Alert and Oriented x 3, - - 3/5 strength in B/L UE throughout. No sensation to light touch in any dermatome on either hand. Intact in upper arms. 4/5 strength symmetrically in B/L LE proximally and distally. Consistent with previous exams. Result Diagrams: 07/20/17 05:23 07/20/17 05:23 Additional Lab and Data: Lab Results Microbiology and Other Data: Microbiology 07/17/17 14:06 Urine Culture - Final Urine Klebsiella Pneumoniae Assess/Plan/Problems-Billing Assessment: Patient is a 72yo female with a PMH significant fro RA, CAD, PAD, Hypothyroid, Recurrent UTI and chronic pain who presents with weakness and numbness of the B/ L upper extremity and a UTI who was admitted custodially, but was found to have severe spinal stenosis on neck MRI and will be trensferred to [place] for surgery. - Patient Problems (1) Weakness Current Visit: Yes Status: Acute Code(s): R53.1 - WEAKNESS SNOMED Code(s) : 13436455 Comment: Appreciate Neurosurgical Consult. Patient has severe spinal stenosis per MRI and needs spinal surgery for which she will be transferred to [place] when a bed is available. Patient has RA which she is on chronic prednisone and plaquenil for. Patient also has a previous fracture of the cervical spine with surgical repair. Patient denies any trauma to her neck. Patient has bilateral Tinel's signs in wrists but has numbness that does not follow a dermatomal pattern or a pattern that corresponds to nerves in the hands. Labs for peripheral neuropathy negative. PRERNA negative, RF >802, SPEP normal. (2) Buttock wound Current Visit: No Status: Acute Code(s): S31.809A - UNSPECIFIED OPEN WOUND OF UNSPECIFIED BUTTOCK, INIT ENCNTR SNOMED Code(s): 07477749 Comment: Wound clinic follows outpatient. Appreciate input. Dressing changed today. Not visualized today. (3) Diastolic CHF Current Visit: Yes Status: Acute Code(s): I50.30 - UNSPECIFIED DIASTOLIC ( CONGESTIVE) HEART FAILURE SNOMED Code(s): 745082287 Comment: No current symptoms of exacerbation. Will monitor strict I/O and Daily Weights. (4) Chronic pain Current Visit: No Status: Acute Code(s): G89.29 - OTHER CHRONIC PAIN SNOMED Code(s): 66030630 Comment: Continue Fentanyl patch, gabapentin, and oxycodone. Add on cyclobenzaprine, Good relief per patient. (5) UTI (urinary tract infection) Current Visit: No Status: Acute Comment: Culture Grew Klebsiella Pneumonia again. Will Continue with Bactrim for extended course due to recurrent UTI. Possibly contributing to weakness. Susceptible to Bactrim, will continue DS BID for a total of 14 days. (6) Anemia Current Visit: No Status: Chronic Code(s): D64.9 - ANEMIA, UNSPECIFIED SNOMED Code(s): 328494193 Comment: Minor, Essentially at Baseline, will monitor. (7) Rheumatoid arthritis Current Visit: No Status: Chronic Code(s): M06.9 - RHEUMATOID ARTHRITIS, UNSPECIFIED SNOMED Code(s): 19874635 Comment: Appreciate rheumatology input. Plaquenil stopped per rheumatology to allow buttock wound to heal. CK normal. Will not replace immunosupression at this time due to concerns about chronic buttock wound. (8) COPD (chronic obstructive pulmonary disease) Current Visit: No Status: Chronic Code(s): J44.9 - CHRONIC OBSTRUCTIVE PULMONARY DISEASE, UNSPECIFIED SNOMED Code(s): 73687512 Comment: No evidence of exacerbation. (9) HTN (hypertension) Current Visit: No Status: Chronic Code(s): I10 - ESSENTIAL (PRIMARY) HYPERTENSION SNOMED Code(s): 05194322 Comment: Continue Lopressor. Normotensive (10) Hypothyroidism Current Visit: No Status: Chronic Code(s): E03.9 - HYPOTHYROIDISM, UNSPECIFIED SNOMED Code(s): 50167027 Comment: Continue Levothyroxine. (11) DVT prophylaxis Current Visit: No Status: Acute Code(s): GTJ0597 - SNOMED Code(s): 319467503 Comment: SQ Heparin Status and Disposition: Patient is admitted observation and will be transferred to [place] tomorrow.
[2017-07-20] MEDS: Atorvastatin* 20 MG TAB PO SCH (18:04)
--- NOTE | 2017-07-20 19:30 | PN ---
Subjective - Subjective History: Patient found to have significant spinal stenosis on MRI imaging studies. TO be transferred per neurosurgical recommendations. Weakness remains stable Active Problems: Active Problems Cervical spinal stenosis (Acute) M48.02 Diastolic CHF (Acute) I50.30 No current symptoms of exacerbation. Will monitor strict I/O and Daily Weights. Weakness (Acute) R53.1 Appreciate Neurosurgical Consult. Patient has severe spinal stenosis per MRI and needs spinal surgery for which she will be transferred to [place] when a bed is available. Patient has RA which she is on chronic prednisone and plaquenil for. Patient also has a previous fracture of the cervical spine with surgical repair. Patient denies any trauma to her neck. Patient has bilateral Tinel's signs in wrists but has numbness that does not follow a dermatomal pattern or a pattern that corresponds to nerves in the hands. Labs for peripheral neuropathy negative. PRERNA negative, RF >802, SPEP normal. Current Medications: Current Medications Acetaminophen (Tylenol Tab*) 650 mg PO Q6H PRN PRN Reason: PAIN Last Admin: 07/20/17 08:13 Dose: 650 mg Albuterol (Ventolin 2.5 Mg/3 Ml Neb.Toro*) 2.5 mg INH Q4H PRN PRN Reason: sob/wheezing Aspirin (Aspirin Ec Low Dose*) 81 mg PO DAILY [facility] Last Admin: 07/20/17 08:14 Dose: 81 mg Atorvastatin Calcium (Lipitor*) 20 mg PO QPM [facility] Last Admin: 07/20/17 18:04 Dose: 20 mg Bupropion HCl (Bupropion Xl*) 300 mg PO QAM [facility] Last Admin: 07/20/17 08:14 Dose: 300 mg Cyclobenzaprine HCl (Flexeril Tab*) 10 mg PO TID PRN PRN Reason: muscle spasm Last Admin: 07/20/17 12:34 Dose: 10 mg Docusate Sodium (Colace Cap*) 100 mg PO BID [facility] Last Admin: 07/20/17 08:14 Dose: 100 mg Fentanyl (Duragesic Patch 50 Mcg/Hr*) 50 mcg TRANSDERM Q72H [facility] Last Admin: 07/20/17 16:39 Dose: 50 mcg Folic Acid (Folvite Tab*) 1 mg PO QAM [facility] Last Admin: 07/20/17 08:14 Dose: 1 mg Furosemide (Lasix Tab*) 10 mg PO DAILY [facility] Last Admin: 07/20/17 08:14 Dose: 10 mg Gabapentin (Neurontin Cap(*)) 300 mg PO BID [facility] Last Admin: 07/20/17 08:16 Dose: 300 mg Heparin Sodium (Porcine) (Heparin Vial(*)) 5,000 units SUBCUT Q8HR [facility] Last Admin: 07/20/17 15:08 Dose: 5,000 units Levothyroxine Sodium (Synthroid Tab*) 75 mcg PO 0600 [facility] Last Admin: 07/20/17 05:53 Dose: 75 mcg Metoprolol Tartrate (Lopressor Tab*) 25 mg PO BID [facility] Last Admin: 07/20/17 08:14 Dose: 25 mg Omeprazole (Prilosec Cap*) 20 mg PO 0730 [facility] Last Admin: 07/20/17 08:14 Dose: 20 mg Ondansetron HCl (Zofran Inj*) 4 mg IV Q4H PRN PRN Reason: NAUSEA Last Admin: 07/20/17 09:55 Dose: 4 mg Oxycodone HCl (Roxycodone Tab*) 5 mg PO Q4H PRN PRN Reason: PAIN - MODERATE TO SEVERE Last Admin: 07/20/17 16:47 Dose: 5 mg Potassium Chloride (Klor Con Er Tab*) 20 meq PO DAILY [facility] Last Admin: 07/20/17 08:14 Dose: 20 meq Prednisone (Deltasone Tab*) 5 mg PO DAILY [facility] Last Admin: 07/20/17 08:14 Dose: 5 mg Trimethoprim/Sulfamethoxazole (Bactrim Ds 800/160 Tab*) 1 tab PO DAILY [facility] Last Admin: 07/20/17 08:14 Dose: 1 tab - Review of Systems Constitutional Symptoms: Yes: Weakness, Fatigue, No: Weight Gain, Fever Dermatology: Normal: No Pulmonary: Positive: Normal Cardiology: Positive: Normal Gastroenterology: Positive: Normal Musculoskeletal: Positive: Joint Stiffness, Arthritis, Joint Deformities, Kyphoscoliosis Hematologic/Lymphatic: Positive: Anemia Allergic/Immunologic: Positive: Immunocompromise Home Medications: Home Medications Medication Instructions Recorded Confirmed Type Folic Acid TAB* [Folvite TAB*] 1 mg PO QA 01/04/13 07/17/17 History Atorvastatin* [Lipitor 20 MG*] 20 mg PO QAM 04/11/15 07/17/17 History BuPROPion XL* [Bupropion XL*] 300 mg PO QAM 04/11/15 07/17/17 History Levothyroxine TAB* [Synthroid 75 75 mcg PO QPM 04/11/15 07/17/17 History MCG TAB*] Gabapentin CAP(*) [Neurontin 300 300 mg PO BID 05/07/15 07/17/17 History CAP(*)] Metoprolol Tartrate TAB* 25 mg PO BID 05/07/15 07/17/17 History [Lopressor TAB*] oxyCODONE TAB* [Roxycodone TAB 5 5 mg PO .Q4-6H PRN 05/07/15 07/17/17 History mg*] predniSONE TAB* [Deltasone TAB*] 5 mg PO DAILY #0 02/09/17 07/17/17 Rx Albuterol 2.5MG/3ML (0.083%)* 2.5 mg INH Q4H PRN #0 ml 03/29/17 07/17/17 Rx [Ventolin 2.5 MG/3 ML NEB.TORO*] Aspirin EC Low Dose* [Ecotrin EC 81 mg PO DAILY #0 06/14/17 07/17/17 History Low Dose 81 MG*] Furosemide TAB* [Lasix TAB*] 10 mg PO DAILY #30 tab 06/14/17 07/17/17 Rx Potassium Chlor TAB* [Potassium 20 meq PO DAILY 06/14/17 07/17/17 History Chlor TAB 20 MEQ*] fentaNYL PATCH 50 MCG/HR* 50 mcg TRANSDERM Q72H 06/14/17 07/17/17 History [Duragesic PATCH 50 Mcg/Hr*] Docusate CAP* [Colace Cap*] 100 mg PO BID 06/15/17 07/17/17 History Omeprazole CAP* [Prilosec CAP* 20 20 mg PO DAILY 06/15/17 07/17/17 History MG] Denosumab(NF) [Prolia(NF)] 60 mg SUBCUT SEE INSTRUCTIONS #0 06/17/17 07/17/17 Rx Acetaminophen TAB* [Tylenol TAB*] 650 mg PO Q6H PRN tab 07/20/17 Rx Cyclobenzaprine TAB* [Flexeril 10 10 mg PO TID PRN tab 07/20/17 Rx MG TAB*] Ondansetron INJ* [Zofran 2 MG/ML 4 mg IV Q4H PRN vial 07/20/17 Rx Inj*] Sulfamethox/Trimethoprim DS* 1 tab PO BID #22 tab 07/20/17 Rx [Bactrim DS 800/160 TAB*] Allergies: Allergies Allergy/AdvReac Type Severity Reaction Status Date / Time Cephalosporins Allergy Abdominal Verified 07/17/17 09:30 Pain Latex Allergy Rash Verified 07/17/17 09:30 Objective - Vital Signs Vital Signs: Vital Signs 07/19/17 07/19/17 07/19/17 20:00 20:15 21:08 Temperature 98.5 F Pulse Rate 80 Respiratory 18 16 19 Rate Blood Pressure 140/58 (mmHg) O2 Sat by Pulse 95 Oximetry 07/19/17 07/19/17 07/19/17 21:26 23:09 23:45 Temperature 97.9 F Pulse Rate 75 Respiratory 18 16 18 Rate Blood Pressure 120/54 (mmHg) O2 Sat by Pulse 96 Oximetry 07/20/17 07/20/17 07/20/17 00:32 03:22 04:48 Temperature 98.1 F Pulse Rate 70 Respiratory 18 16 18 Rate Blood Pressure 127/55 (mmHg) O2 Sat by Pulse 95 Oximetry 07/20/17 07/20/17 07/20/17 06:10 07:27 08:00 Temperature 98.0 F Pulse Rate 70 Respiratory 16 16 18 Rate Blood Pressure 124/43 (mmHg) O2 Sat by Pulse 95 Oximetry 07/20/17 07/20/17 07/20/17 08:15 08:16 11:14 Temperature 98.3 F Pulse Rate 73 Respiratory 18 18 16 Rate Blood Pressure 124/46 (mmHg) O2 Sat by Pulse 93 Oximetry 07/20/17 07/20/17 07/20/17 11:50 12:00 12:34 Temperature Pulse Rate Respiratory 18 18 20 Rate Blood Pressure (mmHg) O2 Sat by Pulse Oximetry 07/20/17 07/20/17 07/20/17 16:04 16:39 16:47 Temperature 98.9 F Pulse Rate 81 Respiratory 20 18 18 Rate Blood Pressure 112/45 (mmHg) O2 Sat by Pulse 94 Oximetry 07/20/17 07/20/17 07/20/17 16:49 16:50 19:21 Temperature Pulse Rate Respiratory 18 18 18 Rate Blood Pressure (mmHg) O2 Sat by Pulse Oximetry - Intake and Output Intake and Output: Intake & Output 07/18/17 07/19/17 07/20/17 07/21/17 06:59 06:59 06:59 06:59 Intake Total 443 868 2898 540 Output Total 555 676 6438 Balance -850 30 260 540 Weight 105 lb 111 lb 8 oz 111 lb 8 oz Intake: IV Fluids 20 NS (0.9%) 20 Oral 927 814 2089 540 Output: Urine 232 255 1524 Other: Estimated Void Large Medium Medium Medium Date of Last Bowel 07/17/17 Movement # Bowel Movements 0 0 0 0 Estimated Stool Amount Medium # Voids 3 500 3 1 ADLs: Meal Record Start: 07/17/17 15: 55 Freq: DAILY@0900,1400,1800 Status: Active Protocol: Document 07/17/17 17:44 [id number] (Rec: 07/17/17 17:44 [id number] MED-C11) Document 07/18/17 14:00 [id number] (Rec: 07/18/17 14:58 [id number] MED-C11) Document 07/18/17 18:00 [id number] (Rec: 07/18/17 18:44 [id number] MED-C11) Document 07/19/17 14:00 [id number] (Rec: 07/19/17 14:43 [id number] MED-C11) Document 07/19/17 18:00 [id number] (Rec: 07/19/17 18:37 [id number] MED-C11) Document 07/20/17 09:00 [id number] (Rec: 07/20/17 09:32 [id number] MED-C09) Document 07/20/17 13:57 [id number] (Rec: 07/20/17 13:58 [id number] MED-C09) Document 07/20/17 18:00 [id number] (Rec: 07/20/17 18:58 [id number] MED-C11) Intake and Output Start: 07/17/17 15: 55 Freq: DAILY@0600,1400,2200 Status: Active Protocol: Document 07/17/17 21:49 [id number] (Rec: 07/17/17 21:50 [id number] MED-C11) Document 07/18/17 05:39 [id number] (Rec: 07/18/17 05:40 [id number] MED-C42) Document 07/18/17 14:00 [id number] (Rec: 07/18/17 18:43 [id number] MED-C11) Document 07/18/17 22:00 [id number] (Rec: 07/18/17 22:02 [id number] MED-C11) Document 07/19/17 06:00 [id number] (Rec: 07/19/17 06:00 [id number] MED-C42) Document 07/19/17 14:00 [id number] (Rec: 07/19/17 14:43 [id number] MED-C11) Document 07/19/17 17:10 [id number] (Rec: 07/19/17 17:10 [id number] MED-C09) Document 07/19/17 22:00 [id number] (Rec: 07/19/17 23:07 [id number] MED-C09) Document 07/20/17 02:22 [id number] (Rec: 07/20/17 02:22 [id number] MED-C26) Document 07/20/17 06:07 [id number] (Rec: 07/20/17 06:07 [id number] MED-C26) Document 07/20/17 10:54 [id number] (Rec: 07/20/17 10:54 [id number] MED-C09) - Physical Exam General Physical Exam Comment: No acute distress sitting up Eye Exam: bilateral: PERRLA Thyroid Function: Clinically Euthyroid Lungs and Chest: Yes: Chest Expansion Full JVP: Not Elevated - Rheumotological System Joints: Joint Deformities, Signs of Connective Tissue Disease - Extremities Limbs: Abnormal Power - Unchanged weakness Results - Results Lab Results: Laboratory Results - last 24 hr 07/18/17 07/19/17 07/20/17 06:39 05:41 05:23 WBC 6.9 RBC 3.90 L Hgb 10.5 L Hct 32 L MCV 83 MCH 27 MCHC 33 RDW 15 Plt Count 307 MPV 7 L Neut % (Auto) 67.1 Lymph % (Auto) 20.2 L Lincoln % (Auto) 9.1 H Eos % (Auto) 2.8 Baso % (Auto) 0.8 Absolute Neuts (auto) 4.6 Absolute Lymphs (auto) 1.4 Absolute Monos (auto) 0.6 Absolute Eos (auto) 0.2 Absolute Basos (auto) 0.1 Absolute Nucleated RBC 0 Nucleated RBC % 0 Sodium Potassium Chloride Carbon Dioxide Anion Gap BUN Creatinine Est GFR ( Amer) Est GFR (Non-Af Amer) BUN/Creatinine Ratio Glucose Calcium Total Protein (PEP) 5.4 L Albumin (PEP) 2.1 L Albumin/Globulin (PEP) 0.61 Sgxej-5-Xosgechgg 0.3 Sxdoi-2-Hbrcglxqk 0.9 Bxee-7-Uakxonin 0.7 Gamma Globulins 1.4 PEP Impression See comment Rheumatoid Factor >802 H Anti-Nuclear Antibody 0.3 07/20/17 05:23 WBC RBC Hgb Hct MCV MCH MCHC RDW Plt Count MPV Neut % (Auto) Lymph % (Auto) Lincoln % (Auto) Eos % (Auto) Baso % (Auto) Absolute Neuts (auto) Absolute Lymphs (auto) Absolute Monos (auto) Absolute Eos (auto) Absolute Basos (auto) Absolute Nucleated RBC Nucleated RBC % Sodium 132 L Potassium 4.2 Chloride 100 L Carbon Dioxide 28 Anion Gap 4 BUN 10 Creatinine 0.59 Est GFR ( Amer) 128.1 Est GFR (Non-Af Amer) 99.6 BUN/Creatinine Ratio 16.9 Glucose 71 Calcium 8.5 L Total Protein (PEP) Albumin (PEP) Albumin/Globulin (PEP) Vxbeq-9-Xgjmxjoas Tvorl-4-Bfcvphlxs Yclo-0-Vpophong Gamma Globulins PEP Impression Rheumatoid Factor Anti-Nuclear Antibody Assessment - Problem List Assessment: Patient Problems Cervical spinal stenosis (Acute) Diastolic CHF (Acute) Weakness (Acute) Acute diastolic CHF (congestive heart failure) (Acute) Acute renal failure (Acute) Adrenal insufficiency (Acute) Buttock wound (Acute) Chest pressure (Acute) Chronic pain (Acute) Colitis (Acute) Constipation (Acute) DNR (do not resuscitate) (Acute) DVT (deep venous thrombosis) (Acute) DVT prophylaxis (Acute) Exposed orthopaedic hardware (Acute) Full code status (Acute) GI bleed (Acute) Hypotension (Acute) Itching (Acute) Pain (Acute) Physical deconditioning (Acute) Poor appetite (Acute) RUQ abdominal pain (Acute) Sepsis (Acute) UTI (urinary tract infection) (Acute) Anemia (Chronic) CAD (coronary artery disease) (Chronic) COPD (chronic obstructive pulmonary disease) (Chronic) HTN (hypertension) (Chronic) Hypothyroidism (Chronic) PVD (peripheral vascular disease) (Chronic) Rheumatoid arthritis (Chronic) Plan: Weakness: agree that her weakness is likely due to severe spinal stenosis. She is having a neurosurgical evaluation. RA: very high inflammatory markers; consider re starting Plaquenil once her neurosurgical condition stabilizes as this seems to be less likely as a cause of weakness Elevated inflammatory markers: should improve over time as inflammation from buttox wound improves
--- NOTE | 2017-07-20 20:11 | TRS ---
CC: Dr. Philipp Fatima, Dr. Robert Taveras of [facility] * TRANSFER SUMMARY: DATE OF ADMISSION: 07/17/17 DATE OF TRANSFER: 07/21/17 PRIMARY CARE PROVIDER: Dr. Fuller. MY ATTENDING WHILE IN THE HOSPITAL: Dr. Mar Coelho * (DICTATED BY LATISHA DUFFY) CONSULTING PROVIDERS: 1. Dr. Pedroza of Rheumatology. 2. LATISHA Ware, of Neurosurgery. 3. Dr. Philipp Fatima of Neurosurgery. PRIMARY DISCHARGE DIAGNOSES: 1. Progressive upper extremity numbness and weakness. 2. Progressive cervical myelopathy. 3. Rheumatoid arthritis. 4. Complicated urinary tract infection. SECONDARY DISCHARGE DIAGNOSES: 1. Coronary artery disease. 2. Myocardial infarction, with stenting. 3. Peripheral arterial disease. 4. Chronic obstructive pulmonary disease. 5. History of deep venous thrombosis. 6. Diastolic congestive heart failure. 7. Hypothyroidism. 8. Hypertension. 9. Hyperlipidemia. 10. Gastroesophageal reflux disease. STUDIES DONE WHILE IN THE HOSPITAL: Chest x-ray from 07/17/17, read as no radiographic evidence of acute cardiopulmonary process. Electrocardiogram from 07/17/17, shows no ST-segment changes, normal sinus rhythm, rate of 81, left axis deviation, and a possible left atrial enlargement. No other abnormalities. Cervical spine MRI from 07/19/17 read as erosive changes of the atlantoaxial articulation consistent with history of rheumatoid arthritis, degenerative disk disease, and osteoarthritis. Postsurgical change with multilevel spondylolisthesis as described above. This resulted in severe narrowing of central canal at C2-C3 and C3-C4 with dvjmmkjw-gj-iirptv narrowing at C7-T1 and moderate narrowing at C6- C7 and C5-C6. There is multilevel neuroforaminal narrowing as described above. More from the body of the report, C2-C3, there is broad disk space bulge rolled with disk bulge/rolled disk with ligamentous facet uncovertebral hypertrophy, evaluation of the neural foramen is limited secondary to metallic susceptibility artifact; however, there appears to be severe bilateral neuroforaminal narrowing. There is severe narrowing in the central canal. C3-C4, there is broad-based disk bulge, rolled disk with bilateral uncovertebral facet hypertrophy. There is severe bilateral neuroforaminal narrowing. There is severe narrowing of the central canal. C4- C5, there is bilateral uncovertebral facet hypertrophy. There is mild bilateral neuroforaminal narrowing. No significant canal stenosis. Other details, lateral mass screws at C2 bilaterally. Degenerative changes of the odontoid process. There is diffuse loss of intervertebral disk height and T2 signal throughout the spine. MEDICATIONS AT DISCHARGE: 1. Folic acid 1 mg p.o. q.a.m. 2. Levothyroxine 75 mcg p.o. q.p.m. 3. Lipitor 20 mg p.o. q.a.m. 4. Bupropion XL 300 mg q.a.m. 5. Metoprolol tartrate 25 mg p.o. b.i.d. 6. Oxycodone 5 mg p.o. q.4-6 hours as needed for pain. 7. Gabapentin 300 mg p.o. b.i.d. 8. Prednisone 5 mg p.o. daily. 9. Albuterol 2.5 mg inhalation q.4 hours as needed. 10. Aspirin 81 mg p.o. daily. 11. Fentanyl 50 mcg transdermal q.72 hours. 12. Potassium chloride 20 mEq p.o. daily. 13. Furosemide 10 mg p.o. daily. 14. Omeprazole 20 mg p.o. daily. 15. Docusate 100 mg p.o. b.i.d. 16. Prolia 60 mg subcutaneous. 17. Tylenol 650 mg p.o. q.6 hours. 18. Cyclobenzaprine 10 mg p.o. t.i.d. as needed. 19. Zofran 4 mg IV q.4 hours as needed. 20. Bactrim double strength 1 tab p.o. b.i.d. x22. New medications at discharge: 1. Tylenol. 2. Cyclobenzaprine. 3. Zofran. 4. Bactrim. Medications discontinued at discharge: 1. Plaquenil 200 mg p.o. daily. HOSPITAL COURSE: This is a brief summary of the patient's presentation. For more details, please see the history and physical from Salome De Leon NP, on 07/17/17. In brief, the patient is a 72-year-old female, well known to this practice from multiple previous admissions for various complaints related to her complex medical history. The patient was evaluated in the emergency room with complaints of bilateral upper extremity numbness and weakness for 2 weeks that has been progressing. The patient also had left- sided neck pain. The patient was seen by her primary care provider and was scheduled for an MRI of her neck on 07/23/17. The patient was unable to care for herself at this time due to weakness. At the time, this was deemed to be a nonemergent complaint and the patient was admitted custodially while the next day, the patient was evaluated by Physical Therapy and Occupational Therapy for her deficits and was deemed to need long-term physical therapy and occupational therapy and was accepted and offered a bed at [facility]. While the patient was admitted custodially, the patient had a workup performed for her weakness and numbness. The patient had a workup for her numbness, ruling out causes of peripheral neuropathy. The patient's B12 was normal. The patient's SPEP was unremarkable. The patient had negative PRERNA. The patient's rheumatoid factor was greater than 802 and the patient's CRP was 99.82 and her ESR was 50. Additionally, the patient's hemoglobin A1c was 5.1. Her creatinine kinase was 25 and the patient had positive nitrites and leukocyte esterase, and bacteria in her urine which grew Klebsiella pneumoniae. The patient had no progression of her weakness and actually felt a little better intermittently throughout her hospital stay. Based on the patient's presentation history of rheumatoid arthritis and history of cervical fracture with fusion, an MRI of the spine was obtained on 07/19/17 and the patient was found to have canal stenosis as above. Neurosurgery was consulted and their impression was that the patient needed surgery to avoid paralysis due to myelopathy. The patient was discussed with Dr. Taveras at [place] by Dr. Philipp Fatima and he was willing to take the transfer. The patient was amenable and would like to pursue surgery at this time. The patient also had throughout the hospitalization cloudy urine and difficulty initiating a urine stream. 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 They also recommended a Roho cushion for pressure relief. 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 This is a rare side effect and it was also recommended that there not be any initiation of new immunosuppressive medications due to concerns about her chronic buttock wound. It is also believed that some of the patient's inflammatory markers might be related to her wound as opposed to her rheumatoid arthritis disease activity. The patient recently had to stop several other medications for her rheumatoid arthritis including Actemra most recently and previously Enbrel and Simponi. The patient has been on long-term steroids and was started on Plaquenil in February. The patient also had a long-term therapy with methotrexate which was stopped in September of 2015. Except chronic pain and urinary symptoms, the patient had no other symptoms while in the hospital. LABORATORY DATA: On 07/20/17, hemoglobin 10.5, platelet count 307. Sodium 132 , potassium 4.2, chloride 100, carbon dioxide 28, anion gap 4, BUN 10, creatinine 0.59, glucose 71, calcium 8.5. DISCHARGE PLAN: The patient will be transferred to [facility] for surgery to address her severe spinal canal stenosis related to her rheumatoid arthritis presumably causing progressive myelopathy with upper extremity weakness and numbness. The patient will be monitored overnight and will be transferred as soon as there is a bed available at [place]. The cervical MRI from above has been transmitted. The patient should have activity as tolerated avoiding excessive neck movement and activities that are high risk for falls. The patient should have a heart healthy diet. Caffeine okay. The patient should follow up with her primary care provider after discharge. LATISHA DUFFY [id number]/[facility] #: [id number] PHUC
[2017-07-20 22:57] VITALS: BP 114/48
== END 2017-07-20 21:00 | disposition short-term general hospital (02) ==
LOC: ED 09:24 → INTOOBSV 14:14 → OBSVTOIN 14:14 → MED 14:14
PROVIDERS: ADMIT Internal Medicine; ATTEND Internal Medicine
DX: R20.0 Anesthesia of skin (principal); R53.1 Weakness; R20.2 Paresthesia of skin; I25.10 Atherosclerotic heart disease of native coronary artery without angina pectoris; I73.9 Peripheral vascular disease, unspecified; J44.9 Chronic obstructive pulmonary disease, unspecified; E03.9 Hypothyroidism, unspecified; Z86.718 Personal history of other venous thrombosis and embolism; I11.0 Hypertensive heart disease with heart failure; I50.32 Chronic diastolic (congestive) heart failure; I25.2 Old myocardial infarction; E78.5 Hyperlipidemia, unspecified; M06.9 Rheumatoid arthritis, unspecified; K21.9 Gastro-esophageal reflux disease without esophagitis; Z79.899 Other long term (current) drug therapy; Z95.5 Presence of coronary angioplasty implant and graft; Z87.891 Personal history of nicotine dependence; Z79.01 Long term (current) use of anticoagulants; Z88.1 Allergy status to other antibiotic agents; N39.0 Urinary tract infection, site not specified; S31.809A Unspecified open wound of unspecified buttock, initial encounter; X58.XXXA Exposure to other specified factors, initial encounter; M50.30 Other cervical disc degeneration, unspecified cervical region
CPT/HCPCS: 36415; 71020; 72141; 80048; 80053; 81003; 81015; 82550; 82607; 83036; 83605; 83735; 84155; 84165; 84443; 84484; 85025; 85652; 86038; 86140; 86431; 87077; 87086; 87186; 93005; 96361; 96372; 96374; 99284; A9270-GY; G0378; J1644; J2405; J3475; J7512

== ENCOUNTER 2017-08-24 10:47 | Inpatient (IN) | payer MEDICARE, MEDICAID ==
[2017-08-24] MEDS ORDERED: NS 0.9% 1000 ML*IV.FLUID IV ONE (11:15)
[2017-08-24] MEDS ORDERED: Piperacillin/Tazobac ADVAN(*) 3.375 GM in NS 0.9% 100 ML* 100 ML IVPB ONE (11:15)
[2017-08-24] MEDS ORDERED: Ondansetron INJ* 2 MG/ML VIAL IV ONE ×2 (11:15→15:16)
[2017-08-24 12:32] LABS: ABS Basophils 0 10^3/ul (0-0.2); ABS Eosinophils 0 10^3/ul (0-0.6); ABS Neutrophils 7.4 10^3/ul (1.5-7.7); ABS Nucleated RBC 0 10^3/ul; Eosinophil % 0.2 % (0-6); Hematocrit 30 % (35-47); Hemoglobin 9.4 g/dl (12.0-16.0); Lymphocyte % 10.8 % (25-47); Mean Corpuscular HGB Conc 32 g/dl (31-36); Mean Corpuscular Hemoglobin 24 pg (27-31); Mean Corpuscular Volume 76 fL (80-97); Mean Platelet Volume 8 um3 (7.4-10.4); Nucleated Red Blood Cells % 0.2; Platelet Count 409 10^3/ul (150-450); Red Blood Count 3.87 10^6/ul (4.0-5.4); Red Cell Distribution Width 17 % (10.5-15); White Blood Count 9.4 10^3/ul (3.5-10.8)
[2017-08-24 12:37] LABS: INR 0.99 (0.77-1.02)
--- NOTE | 2017-08-24 12:39 | RAD ---
INDICATION: Abdominal pain COMPARISON: Most recent comparison chest x-rays July 17, 2017 TECHNIQUE: Single AP portable view of the chest was obtained. FINDINGS: Image quality is compromised due to the relative inferiority of a portable chest x-ray. The heart and mediastinum exhibit normal size and contour. Again seen is coarse calcification overlying the arch of the aorta. The lungs are grossly clear. There is no evidence of a large pleural effusion. Transpedicular fixation screws are noted overlying the cervical spine. IMPRESSION: No radiographic evidence for acute cardiopulmonary abnormality on this portable chest x-ray.
[2017-08-24 12:44] LABS: EGFR Non-African American 84.6 (>60)
--- NOTE | 2017-08-24 13:51 | ED ---
Complex/Multi-Sys Presentation - HPI Summary HPI Summary: Pt here w/ urinary frequency, urge, incontinence (not normal for her) and hematuria past few days per residential, unsure if this is coming from bladder or vagina as pt is on heparin for DVT prophylaxis. She has h/o UTI's and would like to be checked for this. Has some ab pain, mostly epigastric. Moving bowels well since using stool softeners and miralax - she was constipated from narcotic pain medications s/p cervical ortho surgery at [facility] a few weeks ago. She is now having loose stools as a result of this bowel regimen. Additionally she reports nausea with dry heaves and "indigestion" (burning in chest) over the past week, worse past 2 days. She takes a PPI for routine GERD however tried tums yesterday and today in addition to PPI w/o relief of recent sx. No known h/o GI ulcer or bleed. She intially reported she still has her gall bladder but upon further investigation, she is s/p cholecystectomy. She also admits to NM years ago w/ stent placement. States "indigestion" pain is not the same as NM in the past. She has been taking narcotic pain medications in an effort to keep ALFONSO pain at bay for rehab purposes. She is wearing a fentanyl patch and taking oxycodone 5mg throughout the day for pain. Denies fever, chills , shortness of breath, swelling or skin changes. 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 - daughter - Allergies/Home Medications Allergies/Adverse Reactions: Allergies Allergy/AdvReac Type Severity Reaction Status Date / Time Cephalosporins Allergy Abdominal Verified 07/17/17 09:30 Pain Latex Allergy Rash Verified 07/17/17 09:30 Home Medications: Home Medications Acetaminophen TAB* [Tylenol TAB*] 650 mg PO Q4H PRN MDD 3 grams 08/24/17 [ History Confirmed 08/24/17] Acetaminophen [Acetaminophen Extra Stren] 1,000 mg PO Q8H MDD 3 grams 08/24/17 [ History Confirmed 08/24/17] Calcium Carbonate CHEW TAB* [Tums*] 1,000 mg PO Q4H PRN 08/24/17 [History Confirmed 08/24/17] Glycerin ADULT SUPP* 1 supp DE QAM PRN 08/24/17 [History Confirmed 08/24/17] Heparin for STEMI(*) 5,000 units SUBCUT Q8H 08/24/17 [History Confirmed 08/24/17 ] Magnesium Hydroxide LIQ* [Milk of Magnesia LIQ*] 30 ml PO QPM PRN 08/24/17 [ History Confirmed 08/24/17] Melatonin (NF) [Meladox] 3 mg PO BEDTIME 08/24/17 [History Confirmed 08/24/17] Multivitamins/Minerals TAB* [Theragran/minerals TAB*] 1 tab PO DAILY 08/24/17 [ History Confirmed 08/24/17] Ondansetron TAB* [Zofran 4 MG Tab*] 4 mg PO Q6H PRN 08/24/17 [History Confirmed 08/24/17] Senna TAB* [Senokot TAB*] 2 tab PO BEDTIME 08/24/17 [History Confirmed 08/24/17] oxyCODONE TAB* [Roxycodone TAB 5 mg*] 5 mg PO .Q3H PRN 08/24/17 [History Confirmed 08/24/17] tiZANidine TAB* [Zanaflex TAB*] 2 mg PO TID 08/24/17 [History Confirmed 08/24/17 ] PMH/Surg Hx/FS Hx/Imm Hx Previously Healthy: Yes - recovering from cervical spine surgery Endocrine/Hematology History: Reports: Hx Anticoagulant Therapy - heparin for DVT prophylaxis, Hx Anemia Denies: Hx Diabetes, Hx Systemic Lupus Erythematosus Cardiovascular History: Reports: Hx Angina, Hx Angioplasty, Hx Congestive Heart Failure, Hx Coronary Artery Disease - stent placed, Hx Hypercholesterolemia, Hx Hypertension, Hx Myocardial Infarction, Other Cardiovascular Problems/Disorders - DR. DUNLAP Denies: Hx Pacemaker/ICD, Hx Valvular Heart Disease Respiratory History: Reports: Hx Chronic Obstructive Pulmonary Disease (COPD), Other Respiratory Problems/Disorders - OCCASIONALLY DIFFICULTY BREATHING- PRN PROVENTIL- STATES HELPS Denies: Hx Asthma, Hx Lung Cancer, Hx Pneumonia, Hx Seasonal Allergies, Hx Sleep Apnea GI History: Reports: Hx Gall Bladder Disease - cholecystectomy, Hx Gastroesophageal Reflux Disease - ON MEDICATION FOR, Other GI Disorders - colitis History: Reports: Hx Kidney Infection, Hx Kidney Stones Denies: Hx Dialysis, Hx Renal Disease Musculoskeletal History: Reports: Hx Arthritis, Hx Rheumatoid Arthritis, Hx Back Problems, Hx Fibromyalgia, Hx Osteoporosis, Other Musculoskeletal History - herniated disc back T5 and cervical area Sensory History: Reports: Hx Cataracts, Hx Contacts or Glasses Denies: Hx Glaucoma, Hx Hearing Aid Opthamlomology History: Reports: Hx Cataracts, Hx Contacts or Glasses Denies: Hx Glaucoma Neurological History: Reports: Hx Migraine - RARELY, Hx Seizures Denies: Hx Nerve Disease, Hx Spinal Cord Injury, Hx Transient Ischemic Attacks (TIA) Psychiatric History: Reports: Hx Anxiety - ON MEDICATION FOR, Hx Depression - ON MEDICATION FOR Denies: Hx Panic Disorder - Surgical History Surgery Procedure, Year, and Place: Cardiac stent; right hand surgery; left foot surgery; neck surgery, cholecystectomy, hysterectomy Hx Anesthesia Reactions: No Infectious Disease History: No Infectious Disease History: Reports: Hx of Known/Suspected MRSA Denies: Traveled Outside the [place] in Last 30 Days - Family History Known Family History: Positive: Other - NM. cancer. TIA - Social History Occupation: Retired Lives: At [facility] - rehab facility Alcohol Use: None Hx Substance Use: No Substance Use Type: Reports: None Hx Tobacco Use: Yes - not currently Smoking Status (MU): Former Smoker Type: Cigarettes Amount Used/How Often: 1 PPD X 45 YEARS Length of Time of Smoking/Using Tobacco: 48 years Have You Smoked in the Last Year: No Review of Systems Constitutional: Negative Negative: Fever, Chills, Fatigue Eyes: Negative ENT: Negative Positive: Chest Pain Negative: Shortness Of Breath, Cough Positive: Abdominal Pain, Diarrhea - loose stools, Nausea - dry heaves Positive: see HPI Positive: Arthralgia Skin: Negative Neurological: Negative Psychological: Normal All Other Systems Reviewed And Are Negative: Yes Physical Exam Triage Information Reviewed: Yes Vital Signs On Initial Exam: Initial Vitals Temp Pulse Resp BP Pulse Ox 98.2 F 98 16 126/67 96 08/24/17 10:50 08/24/17 10:50 08/24/17 10:50 08/24/17 10:50 08/24/17 10:50 Vital Signs Reviewed: Yes Appearance: Positive: Pain Distress - pt appears to be in mild discomfort - she is a frail appearing 72 y.o. woman with generalized pallor and dry lips; in good spirits and fairly good historian - she initially presented HPI alone then daughter arrived later and filled in some blanks Skin: Positive: Warm, Dry - generalized pallor w/ subcutaneous ecchymosis of Rt dorsal hand Head/Face: Positive: Normal Head/Face Inspection Eyes: Positive: Normal, EOMI, JULIANNE, Conjunctiva Clear. Negative: Conjunctiva Inflammed, Discharge ENT: Positive: Hearing grossly normal, Pharynx normal - oral mucosa somewhat dry , TMs normal, Uvula midline. Negative: Nasal congestion, Nasal drainage, Sinus tenderness Neck: Positive: Supple, Nontender, No Lymphadenopathy Respiratory/Lung Sounds: Positive: Clear to Auscultation, Breath Sounds Present. Negative: Rales, Rhonchi, Stridor, Wheezes Cardiovascular: Positive: Normal, RRR, Pulses are Symmetrical in both Upper and Lower Extremities - +1 radial pulses - equal B/L, S1, S2. Negative: Murmur, Rub Abdomen Description: Positive: No Organomegaly, Soft, Distended - mild, Other: - epigastric TTP along w/ RUQ TTP; lower ab palpation triggers urge to urinate. Negative: Guarding Bowel Sounds: Positive: Present Musculoskeletal: Positive: Other - weak in general but is able to move UE's ( some restriction d/t deformity from arthritis) - is hesitant to move LE's as this triggers back spasm but is able to wiggle toes, flex ankles, etc; kirk w / vertical scarring over midline spine of cervical into thoracic spine Neurological: Positive: Normal, Sensory/Motor Intact, Alert, Oriented to Person Place, Time, CN Intact II-III Psychiatric: Positive: Normal Diagnostics - Vital Signs Vital Signs Temp Pulse Resp BP Pulse Ox 08/24/17 13:30 130/62 08/24/17 13:00 93 16 130/56 91 08/24/17 12:30 91 10 120/54 91 08/24/17 12:08 92 08/24/17 12:00 11 116/63 08/24/17 11:30 118/72 08/24/17 11:00 96 11 119/52 93 08/24/17 10:59 95 9 94 08/24/17 10:56 128/56 08/24/17 10:50 98.2 F 98 16 126/67 96 - Laboratory Lab Results: Lab Results 08/24/17 08/24/17 08/24/17 Range/Units 11:56 11:56 11:56 WBC 9.4 (3.5-10.8) 10^3/ul RBC 3.87 L (4.0-5.4) 10^6/ul Hgb 9.4 L (12.0-16.0) g/dl Hct 30 L (35-47) % MCV 76 L (80-97) fL MCH 24 L (27-31) pg MCHC 32 (31-36) g/dl RDW 17 H (10.5-15) % Plt Count 409 (150-450) 10^3/ul MPV 8 (7.4-10.4) um3 Neut % (Auto) 78.6 (38-83) % Lymph % (Auto) 10.8 L (25-47) % Ellis % (Auto) 10.1 H (1-9) % Eos % (Auto) 0.2 (0-6) % Baso % (Auto) 0.3 (0-2) % Absolute Neuts (auto) 7.4 (1.5-7.7) 10^3/ul Absolute Lymphs (auto) 1.0 (1.0-4.8) 10^3/ul Absolute Monos (auto) 1.0 H (0-0.8) 10^3/ul Absolute Eos (auto) 0 (0-0.6) 10^3/ul Absolute Basos (auto) 0 (0-0.2) 10^3/ul Absolute Nucleated RBC 0 10^3/ul Nucleated RBC % 0.2 INR (Anticoag Therapy) 0.99 (0.77-1.02) APTT 27.9 (26.0-36.3) seconds Sodium 133 (133-145) mmol/L Potassium 4.4 (3.5-5.0) mmol/L Chloride 98 L (101-111) mmol/L Carbon Dioxide 28 (22-32) mmol/L Anion Gap 7 (2-11) mmol/L BUN 21 (6-24) mg/dL Creatinine 0.68 (0.51-0.95) mg/dL Est GFR ( Amer) 108.8 (>60) Est GFR (Non-Af Amer) 84.6 (>60) BUN/Creatinine Ratio 30.9 H (8-20) Glucose 93 (70-100) mg/dL Lactic Acid (0.5-2.0) mmol/L Calcium 9.7 (8.6-10.3) mg/dL Total Bilirubin 0.40 (0.2-1.0) mg/dL AST 168 H (13-39) U/L ALT 28 (7-52) U/L Alkaline Phosphatase 170 H (34-104) U/L Total Creatine Kinase 659 H (10-223) U/L CK-MB (CK-2) Pending Troponin I 40.24 H* (<0.04) ng/mL C-Reactive Protein 74.20 H (< 5.00) mg/L Total Protein 6.6 (6.4-8.9) g/dL Albumin 2.8 L (3.2-5.2) g/dL Globulin 3.8 (2-4) g/dL Albumin/Globulin Ratio 0.7 L (1-3) Influenza A (Rapid) (Negative) Influenza B (Rapid) (Negative) 08/24/17 08/24/17 Range/Units 11:56 12:54 WBC (3.5-10.8) 10^3/ul RBC (4.0-5.4) 10^6/ul Hgb (12.0-16.0) g/dl Hct (35-47) % MCV (80-97) fL MCH (27-31) pg MCHC (31-36) g/dl RDW (10.5-15) % Plt Count (150-450) 10^3/ul MPV (7.4-10.4) um3 Neut % (Auto) (38-83) % Lymph % (Auto) (25-47) % Ellis % (Auto) (1-9) % Eos % (Auto) (0-6) % Baso % (Auto) (0-2) % Absolute Neuts (auto) (1.5-7.7) 10^3/ul Absolute Lymphs (auto) (1.0-4.8) 10^3/ul Absolute Monos (auto) (0-0.8) 10^3/ul Absolute Eos (auto) (0-0.6) 10^3/ul Absolute Basos (auto) (0-0.2) 10^3/ul Absolute Nucleated RBC 10^3/ul Nucleated RBC % INR (Anticoag Therapy) (0.77-1.02) APTT (26.0-36.3) seconds Sodium (133-145) mmol/L Potassium (3.5-5.0) mmol/L Chloride (101-111) mmol/L Carbon Dioxide (22-32) mmol/L Anion Gap (2-11) mmol/L BUN (6-24) mg/dL Creatinine (0.51-0.95) mg/dL Est GFR ( Amer) (>60) Est GFR (Non-Af Amer) (>60) BUN/Creatinine Ratio (8-20) Glucose (70-100) mg/dL Lactic Acid 1.1 (0.5-2.0) mmol/L Calcium (8.6-10.3) mg/dL Total Bilirubin (0.2-1.0) mg/dL AST (13-39) U/L ALT (7-52) U/L Alkaline Phosphatase (34-104) U/L Total Creatine Kinase (10-223) U/L CK-MB (CK-2) Troponin I (<0.04) ng/mL C-Reactive Protein (< 5.00) mg/L Total Protein (6.4-8.9) g/dL Albumin (3.2-5.2) g/dL Globulin (2-4) g/dL Albumin/Globulin Ratio (1-3) Influenza A (Rapid) Negative (Negative) Influenza B (Rapid) Negative (Negative) Result Diagrams: 08/24/17 11:56 08/24/17 11:56 Lab Statement: Any lab studies that have been ordered have been reviewed, and results considered in the medical decision making process. Re-Evaluation - Re-Evaluation First Eval Change: Unchanged - minimal if any change in indigestion pain w/ morphine - nausea initially resolved w/ zofran but returned - more zofran added and ranitidine Second Eval Change: Unchanged - no relief w/ ranitidine - will try GI cocktail Complex Multi-Symp Course/Dx Course Of Treatment: Pt here post op cervical surgery with surgeon at [facility] w/ complaints. She's been rehabbing at [facility] and they were concerned about blood on undergarments - unsure where this is coming from as she is on heparin for DVT prophylaxis. Also reports a decub ulcer that has been cared for - no change in sx here. She does report urinary urgency, frequency and new onset incontinence (hence undergarments). Denies sensation of vaginal bleeding and no trauma to the area. She has h/o UTI so initially w/u'd for urosepsis as she was also complaining of diarrhea (2ndry to tx for opiate induced constipation - has a fentanyl patch and takes oxycodone throughout the day for post op pain - takes stool softener and miralax) and nausea w/ dry heaves. She also admits to "indigestion" since last week, worse past 2 days. She takes PPI daily and has tried tums recently for worsening of pain w/o relief. H/o NM w/ stents however reports this does not feel the same - no SOB, sweating. Discussed case w/ Dr. Muniz. Upon initial w/u of urosepsis, pt was found to have an elevated trop (40). This was repeated and was 42. Her CPK to CKMB does not indicate acute tissue and ECG is NSR w/o adin ST elevations but Q waves are present. ASA was initially ordered but cancelled. Dr. Andrews was consulted and in to see pt - found akinesia of cardiac wall and dx'd pt w/ NM from last week (her initial "indigestion" sx were most likely NM pain as she further reported jaw pain at that time). Furthermore, her urine did return w/ + Nitrates and bacteria. Cipro was ordered in ED. Pt will be admitted for tx of UTI and monitoring for recent NM and pain control as she has not had relief w/ any medications provided thus far. Last option was GI cocktail - results of pain control pending. Spoke w/ Dr. Martinez who will admit the pt. Pt may need heparin on going for DVT prophylaxis however GI bleed may be in diff dx as her H &H are slowly dropping over time and PMH indicates GI bleed. Denies hematochezia. Dr. Andrews dictated a note and may be consulted for further cardiac medications at this time. Pt admitted in stable condition. - Diagnoses Provider Diagnoses: Myocardial infarct, old, Urinary tract infection, GERD (gastroesophageal reflux disease) Discharge - Discharge Plan Condition: Stable Disposition: ADMITTED TO [facility] Referrals: Fernando Fuller DO [Primary Care Provider] -
--- NOTE | 2017-08-24 15:12 | RAD ---
INDICATION: Indigestion chest burning nausea and dry heaves. Elevated liver function tests. COMPARISON: Comparison is made with prior CT of the abdomen and pelvis from December 10, 2015. TECHNIQUE: Multiple real-time images of the right upper quadrant were obtained. FINDINGS: The patient is status post cholecystectomy. No intrahepatic ductal distention is seen. The extrahepatic ducts are distended measuring up to 1.3 cm in transverse dimension which appears unchanged from the prior CT study. The liver is normal in size without significant focal abnormality. The pancreas is partially obscured by overlying bowel gas. The right kidney is normal in size without evidence for hydronephrosis. IMPRESSION: 1. STATUS POST CHOLECYSTECTOMY. 2. EXTRAHEPATIC DUCTAL DISTENTION UNCHANGED FROM THE PRIOR CT STUDY.
[2017-08-24] MEDS ORDERED: Morphine INJ* 4 MG/ML 1 ML CARPUJECT IV ONE (15:16)
[2017-08-24 15:24] LABS: Urine Appearance Clear; Urine Blood Negative (Negative); Urine Color Yellow; Urine Ketones Negative (Negative); Urine Protein Negative (Negative); Urine Specific Gravity 1.013 (1.010-1.030); Urine Urobilinogen Negative (Negative)
[2017-08-24] MEDS ORDERED: Famotidine IV* 10 MG/ML 2 ML (20 mg) IV SLOW PU ONE (15:27)
[2017-08-24] MEDS ORDERED: Lidocaine 2% VISCOUS* 15 ML UDC PO ONE (16:32)
[2017-08-24] MEDS ORDERED: Al Hydrox/Mg Hydrox/Simet LIQ* 30 ML UDC PO ONE (16:32)
[2017-08-24] MEDS ORDERED: Ciprofloxacin TAB* 500 MG PO ONE (16:49)
[2017-08-24] MEDS ORDERED: Aspirin Low Dose CHEW TAB* 81 MG PO ONE (17:45)
[2017-08-24] MEDS ORDERED: Heparin DRIP 25,000 UNITS(*) 25,000 UNITS/500 ML BAG IVPB SCH (17:45)
[2017-08-24] MEDS ORDERED: Calcium Carbonate CHEW TAB* 500 MG (TUMS) PO PRN (17:50)
[2017-08-24] MEDS ORDERED: Glycerin ADULT SUPP PR PRN (17:50)
[2017-08-24] MEDS ORDERED: Magnesium Hydroxide LIQ* 30 ML UDC PO PRN (17:50)
[2017-08-24] MEDS ORDERED: Ciprofloxacin 400MG IVPREMIX(* 400 MG/200 ML BAG IVPB SCH (18:00)
[2017-08-24] MEDS ORDERED: Heparin VIAL(*) 5000 UNITS/ML VIAL (FIVE THOUSAND) IV SCH (18:00)
[2017-08-24] MEDS ORDERED: Nitroglycerin 2% OINT* 1 GM PAK ONE (18:13)
[2017-08-24] MEDS: Nitroglycerin 2% OINT* 1 GM PAK TOPICAL SCH (18:15)
[2017-08-24] MEDS ORDERED: Metoprolol Tartrate TAB* 25 MG PO ONE (18:20)
[2017-08-24 18:35] LABS: ABS Basophils 0 10^3/ul (0-0.2); ABS Eosinophils 0 10^3/ul (0-0.6); ABS Lymphocytes 0.6 10^3/ul (1.0-4.8); ABS Monocytes 0.9 10^3/ul (0-0.8); ABS Neutrophils 7.6 10^3/ul (1.5-7.7); ABS Nucleated RBC 0 10^3/ul; Eosinophil % 0.5 % (0-6); Hematocrit 26 % (35-47); Hemoglobin 8.4 g/dl (12.0-16.0); Lymphocyte % 6.9 % (25-47); Mean Corpuscular HGB Conc 32 g/dl (31-36); Mean Corpuscular Hemoglobin 24 pg (27-31); Mean Corpuscular Volume 76 fL (80-97); Mean Platelet Volume 8 um3 (7.4-10.4); Nucleated Red Blood Cells % 0; Platelet Count 382 10^3/ul (150-450); Red Blood Count 3.46 10^6/ul (4.0-5.4); Red Cell Distribution Width 17 % (10.5-15); White Blood Count 9.2 10^3/ul (3.5-10.8)
[2017-08-24] MEDS: NS 0.9% 1000 ML* 1,000 ML IV SCH (19:09)
[2017-08-24] MEDS: oxyCODONE TAB* 5 MG TAB PO PRN (19:21)
[2017-08-24] MEDS: fentaNYL PATCH 50 MCG/HR TRANSDERM SCH (19:53)
[2017-08-24] MEDS: Ondansetron INJ* 2 MG/ML VIAL IV PRN (20:56)
[2017-08-24] MEDS: Morphine INJ* 4 MG/ML 1 ML CARPUJECT IV PRN (20:56)
[2017-08-24] MEDS: Metoprolol Tartrate TAB* 25 MG PO SCH (20:57)
[2017-08-24] MEDS: Docusate CAP* 100 MG PO SCH (20:57)
[2017-08-24] MEDS: CMCS: Melatonin (NF) 3 MG TAB PO SCH (20:57)
[2017-08-24] MEDS: Senna TAB PO SCH (20:57)
[2017-08-24] MEDS: tiZANidine TAB* 2 MG PO SCH (20:57)
[2017-08-24] MEDS: Gabapentin CAP(*) 300 MG PO SCH (20:57)
[2017-08-24] MEDS: Atorvastatin* 80 MG TAB PO SCH (20:58)
--- NOTE | 2017-08-24 21:07 | CONS ---
CC: Dr. Sykes * CARDIOLOGY CONSULTATION NOTE: DATE OF CONSULT: 08/24/17 INDICATIONS FOR CONSULTATION: Chest pain, elevated troponin level. HISTORY OF PRESENT ILLNESS: The patient is a 72-year-old female with a history of coronary artery disease, history of right coronary artery stents in the distant past who was brought to the emergency room because of epigastric discomfort and hematuria, possible urinary tract infection. The patient was interviewed by the emergency room physician and initially the patient's complaints were lower abdominal pain and hematuria, but then started being concerned because the patient was reporting epigastric discomfort. When I interviewed the patient, she states that approximately a week ago, she was having severe upper neck discomfort and jaw discomfort as well as a severe headache. The patient recently had neck stabilization surgery up at [facility]. This was around [place]. She was in the hospital for approximately a week after her surgery and then was transferred back down to [facility] facility for rehab. In general, the patient has been somewhat immobile because of her severe arthritis and her recent surgery. The patient states that again about a week ago, she started having some upper extremity discomfort, jaw discomfort and headache. She was also complaining of severe joint pain. The patient ascribed these symptoms to her rheumatoid arthritis that was acting up because of the severe cold front. Again, the patient has multiple complaints here in the emergency room from lower abdominal pain to epigastric discomfort to severe arthritis to hematuria to frequent headaches. The patient had laboratory studies drawn in the emergency room and her troponin level was 42. Her CPK level was 599 with a CK-MB of 101 that gives an MB percentage of 6% which is indeterminate. The patient's C-reactive protein was 74. The patient received an EKG in the emergency room which showed new Q waves to the inferior wall compared to previous EKGs. The patient had an urgent echocardiogram in the emergency room which showed a new inferior wall akinesis compared to an echocardiogram in 2017. PAST MEDICAL HISTORY: Significant for: 1. Coronary artery disease. 2. Peripheral vascular disease. 3. COPD. 4. DVT. 5. Hypertension. 6. Severe rheumatoid arthritis. 7. Hypothyroidism. 8. Gastroesophageal reflux disease. The patient has a history of coronary artery disease with a stent to her right coronary artery in the past. PAST SURGICAL HISTORY: Cataract surgery, C-spine surgery, as well as a recent surgery 3 weeks ago, cholecystectomy, hysterectomy. The patient had a cardiac catheterization in November 2015. At that time, her left main artery had 20% to 30% stenosis in the distal left main. The left circumflex artery had a 55% stenosis. The first diagonal had a 35% stenosis. Left circumflex artery had no coronary artery disease. The right coronary artery disease had stents to its proximal mid portion which were open and patent. There was a 60% to 70% restenosis of the proximal stent, a 60% stenosis of the [place] coronary artery between two stents and a 30% stenosis in the distal stent. Fractional flow reserve of the right coronary artery showed no clinically significant flow abnormalities. CURRENT MEDICATIONS: 1. Atorvastatin 20 mg a day. 2. Melatonin as needed. 3. Neurontin 300 mg 3 times a day. 4. Levothyroxine 75 mcg a day. 5. Aspirin 81 mg a day. 6. Wellbutrin 300 mg q.24 hours. 7. Omeprazole 20 mg a day. 8. Potassium 20 mEq a day. 9. Prednisone 5 mg a day. 10. Metoprolol tartrate 25 mg b.i.d. 11. Heparin 5000 units subcu q.8 hours. ALLERGIES: To CEPHALOSPORIN. FAMILY HISTORY: Mother had cancer. Father of unknown causes. SOCIAL HISTORY: She is a previous smoker. Rare alcohol intake. She is currently at rehab after her neck surgery. PHYSICAL EXAM: Vital Signs: Height is 5 feet 1 inches, weight is 110 pounds. Temperature 98.2, heart rate is 94, respiratory rate is 16, oxygen saturation 94 % on 2 L, blood pressure of 128/56. Sclerae are anicteric. Oropharynx is pink without erythema. Carotids are 2+ without bruits. JVD is normal. Thyroid is normal. Cardiac Exam: S1, S2 without any murmurs, rubs, or gallops. PMI is normal. Lungs are difficult to assess as it is difficult to roll the patient for exam. Abdomen is soft, nontender and nondistended with normoactive bowel sounds. Extremities show no edema. She has diminished pulses in her dorsalis pedis and popliteal. The patient is awake, alert and oriented. She moves all 4 extremities in bed equally. DIAGNOSTIC STUDIES/LAB DATA: Chemistries within normal limits. BUN 21, creatinine 0.68. AST is elevated at 168, ALT is 28. Again, total CPK is 600, CPK is 100. Troponin is 40.2. CBC within normal limits. INR 0.99. IMPRESSION: This is a 72-year-old female with a history of coronary artery disease, history of stents to her right coronary artery who is admitted to the hospital with a urinary tract infection. She was found to have a markedly elevated troponin level and a marked change in her EKG. Her EKG shows Q-waves in the inferior lead that were not present before. It is clear from her story, her EKG, her echocardiogram and her laboratory studies that the patient sustained a significant myocardial event probably a week ago. Currently, the patient appears to be stable. I am not convinced that she is having any further angina. Given her age, her frailty, her peripheral vascular disease, I do not think any intervention is necessary at this time. The patient will be admitted to the hospital for observation. We will follow her troponin levels. The patient will continue on beta-myra, statin therapy, and aspirin. It may be beneficial though that the patient undergo a chemical nuclear stress test for risk stratification, but I am quite convinced that her inferior myocardial infarction is over and completed and other interventions are not likely necessary. [id number]/CPS #: [id number] MTDD
--- NOTE | 2017-08-24 21:32 | HP ---
CC: Dr. Fuller * HISTORY AND PHYSICAL: DATE OF ADMISSION: 08/24/17. PRIMARY CARE PROVIDER: Dr. Fuller. DOG BEAUTICIAN: Dr. Pedroza. CHIEF COMPLAINT: Chest pain. HISTORY OF PRESENT ILLNESS: Ms. Parks is a 72-year-old female, who presented to the emergency room from [facility] with complaints of chest pain. The patient states the pain is likely been going on for at least [address] Andrews, but not myself that when the pain started she initially had some jaw pain as well as chest discomfort. The patient states that the pain is burning in nature as well as a pressure sensation. She states currently her pain is 6/10. The patient has no associated shortness of breath. She does state that yesterday, she was sweating profusely. Additionally yesterday, the patient had nausea and dry heaves. The patient does state that this feels similar to her [place] that she had in 2004. Of note, the patient is recently status post cervical spine decompression surgery. The patient was admitted to [facility] on 07/17/17 to where she was identified to have progressive cervical myelopathy and was transferred to [facility] for her decompressive surgery. The patient states that she had been rehabbing well at [facility] since her surgery up until approximately the last 1 week when she felt too weak to do any rehab. PAST MEDICAL HISTORY: 1. Coronary artery disease. 2. Peripheral arterial disease. 3. COPD. 4. History of DVT. 5. Hypothyroidism. 6. CHF. 7. Hypertension. 8. Hyperlipidemia. 9. Rheumatoid arthritis. 10. GERD. PAST SURGICAL HISTORY: 1. Bunionectomy. 2. Hysterectomy. 3. C-spine decompression and fusion. 4. Bilateral cataract extraction. 5. Colectomy. MEDICATIONS: 1. Calcium carbonate 1000 mg p.o. q. 4 hours p.r.n. indigestion. 2. Oxycodone 5 mg p.o. q. 3 hours p.r.n. pain. 3. Tylenol 650 mg p.o. q. 4 hours p.r.n. pain. 4. Glycerin suppository 1 suppository MA daily p.r.n. constipation. 5. MOM 30 mL p.o. q.h.s. p.r.n. constipation. 6. Zanaflex 2 mg p.o. t.i.d. 7. Senna 2 tabs p.o. q.h.s. 8. Oxycodone 5 mg p.o. daily. 9. Metoprolol tartrate 25 mg p.o. twice daily. 10. Colace 100 mg p.o. twice daily. 11. Potassium chloride 20 mEq p.o. daily. 12. Omeprazole 20 mg p.o. daily. 13. Folic acid 1 mg p.o. daily. 14. Multivitamins 1 tab p.o. daily. 15. Bupropion XL 300 mg p.o. daily. 16. Aspirin 81 mg p.o. daily. 17. Fentanyl patch 50 mcg topically q. 72 hours. 18. Zofran 4 mg p.o. q. 6 hours p.r.n. nausea. 19. Levothyroxine 75 mcg p.o. q.h.s. 20. Gabapentin 300 mg p.o. q.i.d. 21. Tylenol 1000 mg p.o. q. 8 hours. 22. Melatonin 3 mg p.o. q.h.s. 23. Lipitor 20 mg p.o. q.h.s. ALLERGIES: CEPHALOSPORINS and LATEX. FAMILY HISTORY: The patient's mom had a history of laryngeal cancer. The patient's father committed suicide when she was young. There is no family history of coronary disease, diabetes. SOCIAL HISTORY: The patient is former smoker. She quit in 2004 at the time of her first TX. She smoked approximately 1 pack per day for approximately 40 years. She does not drink alcohol. 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 She is . She has 3 children and indicates that her daughters, Mackenzie Kay and Nela Lopez, are her healthcare proxies. REVIEW OF SYSTEMS: A complete 11-system review of systems is obtained. Pertinent positives and negatives are as per HPI. In addition, the patient complains of dysuria as well as hematuria and chronic left-sided weakness. PHYSICAL EXAMINATION GENERAL: The patient is a well-developed, elderly, frail appearing female, lying in bed, in no acute distress. VITAL SIGNS: Blood pressure 120/64, pulse 98, respirations 19, temp 98.2, O2 sat 92% on room air. HEENT: Pupils are equal, they are round. There is evidence of prior cataract extraction. Extraocular muscles are intact. Oropharynx is clear. Oral mucosa is moist. The patient's dentition is in poor repair. There is no submandibular , cervical, or supraclavicular adenopathy. Thyroid is not enlarged. No thyroid nodules are noted. PULMONARY: Lungs are clear to auscultation bilaterally. CARDIAC: Normal S1, and S2. Heart rate is mildly tachycardic. There is no lower extremity edema. ABDOMEN: Bowel sounds are present. Abdomen is soft, nontender, nondistended. MUSCULOSKELETAL: There is no cyanosis of the digits. There is obvious joint deformity secondary to her rheumatoid arthritis. NEURO: Cranial nerves II through XII are grossly intact. Sensation is intact to light touch throughout. Strength is 5/5 and symmetric to both upper and lower extremities bilaterally. PSYCH: The patient alert. She is oriented x3. Affect appears appropriate. SKIN: Warm and dry. There are no rashes. The patient does note ulcerations on her left buttock; however, at this time I am unable to roll the patient on my own and will inspect this tomorrow with nursing. DIAGNOSTIC STUDIES/LAB DATA: WBC 9.4, hemoglobin 9.4, hematocrit 30, platelets 409. INR is 0.99. PTT 28.1. Sodium 133, potassium 4.4, chloride 98 , CO2 28, BUN 21, creatinine is 0.68, glucose 93, lactic acid 1.1, calcium 9.7, bilirubin 0.4. AST 168, ALT 28. Alk phos 170, CPK 659, CK-MB 101. Troponin 40.24, up to 42.63. CRP is 74.2, albumin 2.8. Urinalysis is positive for nitrites, leukocyte esterase, wbc, bacteria, and hyaline casts. Influenza A and B negative. EKG reveals ST elevations in the inferior leads with Q waves already present. She had ST depressions in the anterior leads. Chest x-ray: No acute cardiopulmonary abnormality on the portable chest x-ray. Liver ultrasound: Status post cholecystectomy, extrahepatic ductal distention unchanged from prior CT. ASSESSMENT AND PLAN: Ms. Parks is a 72-year-old female with a history of coronary artery disease, peripheral arterial disease, chronic obstructive pulmonary disease, hypothyroidism, hypertension, hyperlipidemia, and congestive heart failure, who presents to the emergency room with approximately 1 week of ongoing chest pain and is found to have an elevated troponin of 40 on presentation to the emergency room with ST elevations in inferior leads; however , Q-waves are already present suggesting infarct over sometime in the last few days. 1. Non-ST elevation myocardial infarction. The patient was seen in consultation by Dr. Andrews in the emergency room. He felt that the patient's myocardial infarction likely occurred approximately 1 week ago. He did a quick bedside echocardiogram, which revealed akinesis of the inferior wall. We will continue aspirin, metoprolol with an additional one time dose now as the patient is tachycardic and her statin. I am going to place the patient on a heparin drip and nitroglycerin paste as the patient has ongoing chest pain. The patient has a repeat troponin pending for now. She will be admitted to the intensive care unit. I will order a formal echocardiogram for tomorrow. Dr. Andrews is going to consider a stress test to evaluate for residual ischemia, however, further determination will need to be made during the patient's clinical course. 2. Hypertension. The patient's blood pressure is under good control. She will continue on her metoprolol. 3. Hyperlipidemia. I am going to increase the patient's Lipitor to 80 mg subcutaneous q.h.s. given her myocardial infarction. 4. Hypothyroidism. The patient will continue on her home dose of Synthroid. 5. Recent cervical decompression/fusion. The patient will ultimately return back to [facility] for rehab. I have ordered out of bed with assistance for the patient. PT eval may need to be considered. 6. Rheumatoid arthritis. The patient will be continued on her usual doses of oxycodone, tizanidine, and fentanyl patch. It appears that she is off prednisone and Plaquenil, which she was on previously. 7. DVT prophylaxis. According to the Adult Thrombosis Prophylaxis Risk Factor Assessment Guide, the patient has a total risk factor score of 3 making her high risk. She is on a heparin drip for the myocardial infarction, which will act as her DVT prophylaxis. 8. Code status is full and again the patient indicates that her daughters, Mackenzie and Nela are her healthcare proxies. TIME SPENT: 65 minutes was spent admitting this patient. [id number]/[facility] #: [id number] [facility]
[2017-08-24] MEDS: fentaNYL Patch Check Q Shift 1 NOTE SCH (22:41)
[2017-08-24 22:52] LABS: Hematocrit 23 % (35-47); Hemoglobin 7.3 g/dl (12.0-16.0)
[2017-08-24] MEDS ORDERED: NS 0.9% 1000 ML* 1,000 ML IV ONE (23:17)
--- NOTE | 2017-08-24 23:19 | PN ---
Progress Note - Progress Note Date of Service: 08/24/17 Note: Paged for hypotension - patient feels slightly lightheaded, chest pain present but has improved in severity. No significant EKG changes. H/H continues to drop. Trop trending down. Will d/c heparin drip in setting of drop in H/H. Check hemoccult.
[2017-08-25] MEDS: NS 0.9% 1000 ML* 1,000 ML IV SCH ×2 (00:19→21:30)
[2017-08-25] MEDS: Morphine INJ* 4 MG/ML 1 ML CARPUJECT IV PRN ×2 (02:04→21:05)
[2017-08-25] MEDS: Nitroglycerin 2% OINT* 1 GM PAK TOPICAL SCH ×2 (02:05→06:07)
[2017-08-25] MEDS: Ciprofloxacin 400MG IVPREMIX(* 400 MG/200 ML BAG IVPB SCH ×2 (04:45→18:32)
[2017-08-25] MEDS: Levothyroxine TAB* 75 MCG TAB PO SCH (06:10)
[2017-08-25 06:23] LABS: EGFR Non-African American 101.6 (>60)
[2017-08-25] MEDS: Omeprazole CAP* 20 MG PO SCH (08:17)
[2017-08-25] MEDS: BuPROPion XL* 300 MG TAB.XL PO SCH (08:17)
[2017-08-25] MEDS: tiZANidine TAB* 2 MG PO SCH ×3 (08:17→20:59)
[2017-08-25] MEDS: oxyCODONE TAB* 5 MG TAB PO SCH (08:17)
[2017-08-25] MEDS: Gabapentin CAP(*) 300 MG PO SCH ×4 (08:17→20:58)
[2017-08-25] MEDS: Potassium Chlor TAB* 20 MEQ TAB.ER PO SCH (08:18)
[2017-08-25] MEDS: Aspirin EC Low Dose* 81 MG TAB.EC PO SCH (08:18)
[2017-08-25] MEDS: Docusate CAP* 100 MG PO SCH ×2 (08:18→20:58)
[2017-08-25] MEDS: Folic Acid TAB* 1 MG PO SCH (08:18)
[2017-08-25] MEDS: Multivitamins/Minerals TAB PO SCH (08:18)
[2017-08-25] MEDS ORDERED: NS 0.9% 1000 ML* 1,000 ML IV ONE (09:14)
[2017-08-25] MEDS: Metoprolol Tartrate TAB* 25 MG PO SCH ×2 (09:19→21:31)
--- NOTE | 2017-08-25 09:51 | PN ---
Subjective Date of Service: 08/25/17 Interval History: Pt is feeling well this AM. She states that the chest pain has finally completely resolved. She denies any SOB. No lightheadedness at this time but she was lightheaded overnight. Heparin drip stopped overnight with decreasing H/ H. She denies any bloody urine or vaginal bleeding, nursing additionally has not reported any bleeding. Objective Active Medications: Acetaminophen (Tylenol Tab*) 650 mg PO Q4H PRN PRN Reason: PAIN Aspirin (Aspirin Ec Low Dose*) 81 mg PO DAILY [facility] Last Admin: 08/25/17 08:18 Dose: 81 mg Atorvastatin Calcium (Lipitor*) 80 mg PO BEDTIME [facility] Last Admin: 08/24/17 20:58 Dose: 80 mg Bupropion HCl (Bupropion Xl*) 300 mg PO QAM [facility] Last Admin: 08/25/17 08:17 Dose: 300 mg Calcium Carbonate (Tums*) 1,000 mg PO Q4H PRN PRN Reason: INDIGESTION Docusate Sodium (Colace Cap*) 100 mg PO BID [facility] Last Admin: 08/25/17 08:18 Dose: 100 mg Fentanyl (Duragesic Patch 50 Mcg/Hr*) 50 mcg TRANSDERM Q72H [facility] Last Admin: 08/24/17 19:53 Dose: 50 mcg Folic Acid (Folvite Tab*) 1 mg PO QAM [facility] Last Admin: 08/25/17 08:18 Dose: 1 mg Gabapentin (Neurontin Cap(*)) 300 mg PO QID [facility] Last Admin: 08/25/17 08:17 Dose: 300 mg Glycerin (Glycerin Adult Supp*) 1 supp ME QAM PRN PRN Reason: CONSTIPATION Heparin Sodium (Porcine) (Heparin Vial(*)) 0 units IV .PER PROTOCOL ORIN PRN Reason: Protocol Last Admin: 08/24/17 18:37 Dose: 3,700 units Sodium Chloride (Ns 0.9% 1000 Ml*) 1,000 mls @ 100 mls/hr IV PER RATE [facility] Last Admin: 08/25/17 00:19 Dose: 100 mls/hr Ciprofloxacin/Dextrose (Cipro 400 Mg Ivpremix(*)) 400 mg in 200 mls @ 200 mls/ hr IVPB Q12H [facility] Last Admin: 08/25/17 04:45 Dose: 200 mls/hr Sodium Chloride (Ns 0.9% 1000 Ml*) 1,000 mls @ 1,000 mls/hr IV .PER RATE ONE Stop: 08/25/17 10:13 Levothyroxine Sodium (Synthroid Tab*) 75 mcg PO DAILY@0600 [facility] Last Admin: 08/25/17 06:10 Dose: 75 mcg Magnesium Hydroxide (Milk Of Magnesia Liq*) 30 ml PO QPM PRN PRN Reason: CONSTIPATION Melatonin (Melatonin (Nf)) 3 mg PO BEDTIME [facility] PRN Reason: Protocol Last Admin: 08/24/17 20:57 Dose: 3 mg Metoprolol Tartrate (Lopressor Tab*) 25 mg PO BID [facility] Last Admin: 08/25/17 09:19 Dose: Not Given Morphine Sulfate (Morphine Inj (Syringe)*) 4 mg IV Q4H PRN PRN Reason: PAIN Last Admin: 08/25/17 02:04 Dose: 4 mg Multivitamins/Minerals (Theragran/Minerals Tab*) 1 tab PO DAILY [facility] Last Admin: 08/25/17 08:18 Dose: 1 tab Nitroglycerin (Nitroglycerin 2% Oint*) 1 inch TOPICAL Q6H [facility] PRN Reason: Protocol Last Admin: 08/25/17 06:07 Dose: Not Given Omeprazole (Prilosec Cap*) 20 mg PO 0730 [facility] Last Admin: 08/25/17 08:17 Dose: 20 mg Ondansetron HCl (Zofran Inj*) 4 mg IV Q6H PRN PRN Reason: NAUSEA Last Admin: 08/24/17 20:56 Dose: 4 mg Oxycodone HCl (Roxycodone Tab*) 5 mg PO Q3H PRN PRN Reason: PAIN Last Admin: 08/24/17 19:21 Dose: 5 mg Oxycodone HCl (Roxycodone Tab*) 5 mg PO DAILY [facility] Last Admin: 08/25/17 08:17 Dose: 5 mg Pharmacy Profile Note (Fentanyl Patch Check Q Shift) 1 note N/A 0700,1900 [facility] Last Admin: 08/24/17 22:41 Dose: 1 note Potassium Chloride (Klor Con Er Tab*) 20 meq PO DAILY [facility] Last Admin: 08/25/17 08:18 Dose: 20 meq Senna (Senokot Tab*) 2 tab PO BEDTIME [facility] Last Admin: 08/24/17 20:57 Dose: 2 tab Tizanidine HCl (Zanaflex Tab*) 2 mg PO TID [facility] Last Admin: 08/25/17 08:17 Dose: 2 mg Vital Signs - 8 hr 08/25/17 08/25/17 08/25/17 01:45 01:50 02:00 Temperature Pulse Rate 72 74 Respiratory 15 17 12 Rate Blood Pressure 81/44 92/51 (mmHg) O2 Sat by Pulse 99 98 Oximetry 08/25/17 08/25/17 08/25/17 02:01 02:04 02:15 Temperature Pulse Rate 72 73 Respiratory 11 15 12 Rate Blood Pressure 79/47 (mmHg) O2 Sat by Pulse 98 98 Oximetry 08/25/17 08/25/17 08/25/17 02:30 02:45 03:00 Temperature 98.6 F Pulse Rate 73 73 73 Respiratory 21 15 15 Rate Blood Pressure 87/50 78/41 77/43 (mmHg) O2 Sat by Pulse 99 92 95 Oximetry 08/25/17 08/25/17 08/25/17 03:01 03:15 03:27 Temperature 98.6 F Pulse Rate 74 73 Respiratory 16 13 Rate Blood Pressure 87/48 (mmHg) O2 Sat by Pulse 95 96 Oximetry 08/25/17 08/25/17 08/25/17 03:30 03:45 03:57 Temperature Pulse Rate 78 75 Respiratory 13 13 15 Rate Blood Pressure 75/41 75/43 (mmHg) O2 Sat by Pulse 92 92 Oximetry 08/25/17 08/25/17 08/25/17 04:00 04:01 04:15 Temperature Pulse Rate 78 77 78 Respiratory 14 13 15 Rate Blood Pressure 78/40 80/43 (mmHg) O2 Sat by Pulse 91 89 91 Oximetry 08/25/17 08/25/17 08/25/17 04:30 04:45 04:47 Temperature Pulse Rate 76 83 82 Respiratory 15 17 20 Rate Blood Pressure 79/47 61/48 89/47 (mmHg) O2 Sat by Pulse 94 91 93 Oximetry 08/25/17 08/25/17 08/25/17 04:48 05:00 05:01 Temperature Pulse Rate 73 78 Respiratory 24 13 16 Rate Blood Pressure 87/47 (mmHg) O2 Sat by Pulse 98 98 Oximetry 08/25/17 08/25/17 08/25/17 05:15 05:30 05:45 Temperature Pulse Rate 79 83 81 Respiratory 13 17 16 Rate Blood Pressure 95/56 90/53 91/48 (mmHg) O2 Sat by Pulse 99 97 98 Oximetry 08/25/17 08/25/17 08/25/17 06:00 07:00 08:00 Temperature 97.4 F 97.4 F Pulse Rate 78 Respiratory 20 Rate Blood Pressure 85/48 (mmHg) O2 Sat by Pulse 98 Oximetry Oxygen Devices in Use Now: Nasal Cannula Appearance: Elderly female sitting up in bed, NAD Eyes: No Scleral Icterus Ears/Nose/Mouth/Throat: Mucous Membranes Moist Respiratory: Symmetrical Chest Expansion and Respiratory Effort, Clear to Auscultation Cardiovascular: NL Sounds; No Murmurs; No JVD, RRR, No Edema Abdominal: NL Sounds; No Tenderness; No Distention Extremities: No Clubbing, Cyanosis, - - joint deformities secondary to RA Skin: No Nodules or Sclerosis, - - about 2in oval stage II decubitus on L buttock Neurological: Alert and Oriented x 3 Result Diagrams: 08/24/17 22:30 08/25/17 05:48 Additional Lab and Data: Lab Results 08/24/17 08/24/17 08/24/17 Range/Units 11:56 11:56 11:56 WBC 9.4 (3.5-10.8) 10^3/ul RBC 3.87 L (4.0-5.4) 10^6/ul Hgb 9.4 L (12.0-16.0) g/dl Hct 30 L (35-47) % MCV 76 L (80-97) fL MCH 24 L (27-31) pg MCHC 32 (31-36) g/dl RDW 17 H (10.5-15) % Plt Count 409 (150-450) 10^3/ul MPV 8 (7.4-10.4) um3 Neut % (Auto) 78.6 (38-83) % Lymph % (Auto) 10.8 L (25-47) % [place] % (Auto) 10.1 H (1-9) % Eos % (Auto) 0.2 (0-6) % Baso % (Auto) 0.3 (0-2) % Absolute Neuts (auto) 7.4 (1.5-7.7) 10^3/ul Absolute Lymphs (auto) 1.0 (1.0-4.8) 10^3/ul Absolute Monos (auto) 1.0 H (0-0.8) 10^3/ul Absolute Eos (auto) 0 (0-0.6) 10^3/ul Absolute Basos (auto) 0 (0-0.2) 10^3/ul Absolute Nucleated RBC 0 10^3/ul Nucleated RBC % 0.2 INR (Anticoag Therapy) 0.99 (0.77-1.02) APTT 27.9 (26.0-36.3) seconds Sodium 133 (133-145) mmol/L Potassium 4.4 (3.5-5.0) mmol/L Chloride 98 L (101-111) mmol/L Carbon Dioxide 28 (22-32) mmol/L Anion Gap 7 (2-11) mmol/L BUN 21 (6-24) mg/dL Creatinine 0.68 (0.51-0.95) mg/dL Est GFR ( Amer) 108.8 (>60) Est GFR (Non-Af Amer) 84.6 (>60) BUN/Creatinine Ratio 30.9 H (8-20) Glucose 93 (70-100) mg/dL Lactic Acid (0.5-2.0) mmol/L Calcium 9.7 (8.6-10.3) mg/dL Total Bilirubin 0.40 (0.2-1.0) mg/dL AST 168 H (13-39) U/L ALT 28 (7-52) U/L Alkaline Phosphatase 170 H (34-104) U/L Total Creatine Kinase 659 H (10-223) U/L CK-MB (CK-2) Pending Troponin I 40.24 H* (<0.04) ng/mL C-Reactive Protein 74.20 H (< 5.00) mg/L Total Protein 6.6 (6.4-8.9) g/dL Albumin 2.8 L (3.2-5.2) g/dL Globulin 3.8 (2-4) g/dL Albumin/Globulin Ratio 0.7 L (1-3) Influenza A (Rapid) (Negative) Influenza B (Rapid) (Negative) 08/24/17 08/24/17 Range/Units 11:56 12:54 WBC (3.5-10.8) 10^3/ul RBC (4.0-5.4) 10^6/ul Hgb (12.0-16.0) g/dl Hct (35-47) % MCV (80-97) fL MCH (27-31) pg MCHC (31-36) g/dl RDW (10.5-15) % Plt Count (150-450) 10^3/ul MPV (7.4-10.4) um3 Neut % (Auto) (38-83) % Lymph % (Auto) (25-47) % [place] % (Auto) (1-9) % Eos % (Auto) (0-6) % Baso % (Auto) (0-2) % Absolute Neuts (auto) (1.5-7.7) 10^3/ul Absolute Lymphs (auto) (1.0-4.8) 10^3/ul Absolute Monos (auto) (0-0.8) 10^3/ul Absolute Eos (auto) (0-0.6) 10^3/ul Absolute Basos (auto) (0-0.2) 10^3/ul Absolute Nucleated RBC 10^3/ul Nucleated RBC % INR (Anticoag Therapy) (0.77-1.02) APTT (26.0-36.3) seconds Sodium (133-145) mmol/L Potassium (3.5-5.0) mmol/L Chloride (101-111) mmol/L Carbon Dioxide (22-32) mmol/L Anion Gap (2-11) mmol/L BUN (6-24) mg/dL Creatinine (0.51-0.95) mg/dL Est GFR ( Amer) (>60) Est GFR (Non-Af Amer) (>60) BUN/Creatinine Ratio (8-20) Glucose (70-100) mg/dL Lactic Acid 1.1 (0.5-2.0) mmol/L Calcium (8.6-10.3) mg/dL Total Bilirubin (0.2-1.0) mg/dL AST (13-39) U/L ALT (7-52) U/L Alkaline Phosphatase (34-104) U/L Total Creatine Kinase (10-223) U/L CK-MB (CK-2) Troponin I (<0.04) ng/mL C-Reactive Protein (< 5.00) mg/L Total Protein (6.4-8.9) g/dL Albumin (3.2-5.2) g/dL Globulin (2-4) g/dL Albumin/Globulin Ratio (1-3) Influenza A (Rapid) Negative (Negative) Influenza B (Rapid) Negative (Negative) Microbiology and Other Data: Microbiology 08/24/17 19:45 Nasal Screen MRSA (PCR)([facility]) - Final Nasal Mrsa Positive Assess/Plan/Problems-Billing Ms Parks is a 72 yo F who has a h/o CAD, RA, recent cervical spine decompression surgery, COPD, HTN, HLD and unspecified type of CHF who presented to the ER with c/o UTI symptoms but also c/o chest pain and was found to an elevated troponin of ~40 and was admitted for NSTEMI. - Patient Problems (1) NSTEMI (non-ST elevated myocardial infarction) Current Visit: Yes Status: Acute Code(s): I21.4 - NON-ST ELEVATION (NSTEMI) MYOCARDIAL INFARCTION SNOMED Code(s): 278343302 Comment: Troponin is trending down. Her chest pain is resolved. Heparin drip was stopped as her H/H trended down. Will continue ASA 81mg for now. Formal echocardiogram pending for this AM. Stop NTG paste as pt is now hypotensive and pain free. Cardiology to follow up today. (2) Anemia Current Visit: Yes Status: Chronic Code(s): D64.9 - ANEMIA, UNSPECIFIED SNOMED Code(s): 991337270 Comment: H/H has been progressively dropping. ? vaginal bleeding (was possibly reported at [facility]) vs GI bleed. Will transfuse 1 unit PRBC now in the setting of AMI. Repeat H/H this afternoon. Stool guaiac ordered. (3) CHF (congestive heart failure) Current Visit: Yes Status: Acute Code(s): I50.9 - HEART FAILURE, UNSPECIFIED SNOMED Code(s): 42176078 Comment: The type of CHF is unspecified. Will be getting echo this AM. For now be cautious with IVF and blood administration. No crackles on exam and no c/ o SOB. (4) CAD (coronary artery disease) Current Visit: Yes Status: Chronic Code(s): I25.10 - ATHSCL HEART DISEASE OF [place] CORONARY ARTERY W/O ANG PCTRS SNOMED Code(s): 27952283 Comment: As above continue ASA, continue lipitor. Metoprolol currently on hold for low BP. (5) COPD (chronic obstructive pulmonary disease) Current Visit: Yes Status: Chronic Code(s): J44.9 - CHRONIC OBSTRUCTIVE PULMONARY DISEASE, UNSPECIFIED SNOMED Code(s): 59775003 Comment: No signs of exacerbation. Continue to monitor for SOB. (6) HTN (hypertension) Current Visit: Yes Status: Chronic Code(s): I10 - ESSENTIAL (PRIMARY) HYPERTENSION SNOMED Code(s): 40335988 Comment: The patient has been hypotensive all night. Metoprolol on hold. NTG paste discontinued. Will give 1L NS at 1000ml/hr and 1 unit PRBC. If BP fails to improve will likely transfuse second unit of PRBC. (7) Stage II decubitus ulcer Current Visit: Yes Status: Acute Code(s): L89.92 - PRESSURE ULCER OF UNSPECIFIED SITE, STAGE 2 SNOMED Code(s): 784925092 Comment: Wound appears healthy, continue pressure relieving measures. (8) Hypothyroidism Current Visit: Yes Status: Chronic Code(s): E03.9 - HYPOTHYROIDISM, UNSPECIFIED SNOMED Code(s): 50748624 Comment: Continue Levothyroxine at home dose. (9) Rheumatoid arthritis Current Visit: Yes Status: Chronic Code(s): M06.9 - RHEUMATOID ARTHRITIS, UNSPECIFIED SNOMED Code(s): 43191728 Comment: The patient is not on any therapy for this at this time. (10) DVT prophylaxis Current Visit: Yes Status: Acute Code(s): OMC6901 - SNOMED Code(s): 302856452 Comment: SCDs alone while evaluating for anemia. (11) Full code status Current Visit: Yes Status: Acute Code(s): Z78.9 - OTHER SPECIFIED HEALTH STATUS SNOMED Code(s): 680523650
[2017-08-25 10:46] LABS: Hematocrit 22 % (35-47); Mean Corpuscular HGB Conc 31 g/dl (31-36); Mean Corpuscular Hemoglobin 24 pg (27-31); Mean Corpuscular Volume 78 fL (80-97); Mean Platelet Volume 8 um3 (7.4-10.4); Platelet Count 294 10^3/ul (150-450); Red Blood Count 2.85 10^6/ul (4.0-5.4); Red Cell Distribution Width 17 % (10.5-15); White Blood Count 8.9 10^3/ul (3.5-10.8)
[2017-08-25] MEDS: oxyCODONE TAB* 5 MG TAB PO PRN (13:30)
[2017-08-25 15:28] LABS: Hematocrit 26 % (35-47); Hemoglobin 8.3 g/dl (12.0-16.0)
[2017-08-25] MEDS: fentaNYL Patch Check Q Shift 1 NOTE SCH ×2 (18:31→19:15)
[2017-08-25] MEDS: Senna TAB PO SCH (20:58)
[2017-08-25] MEDS: Atorvastatin* 80 MG TAB PO SCH (20:59)
[2017-08-25] MEDS: CMCS: Melatonin (NF) 3 MG TAB PO SCH (20:59)
[2017-08-26] MEDS: Ciprofloxacin 400MG IVPREMIX(* 400 MG/200 ML BAG IVPB SCH ×2 (04:54→17:39)
[2017-08-26] MEDS: Morphine INJ* 4 MG/ML 1 ML CARPUJECT IV PRN ×2 (04:58→15:00)
[2017-08-26 05:56] LABS: EGFR Non-African American 136.2 (>60)
[2017-08-26] MEDS: Levothyroxine TAB* 75 MCG TAB PO SCH (06:03)
--- NOTE | 2017-08-26 06:16 | PN ---
Progress Note - Progress Note Date of Service: 08/26/17 Note: Abnormal labs - concern for lab error - recommend repeating
[2017-08-26] MEDS: fentaNYL Patch Check Q Shift 1 NOTE SCH ×2 (07:17→19:12)
[2017-08-26] MEDS: Omeprazole CAP* 20 MG PO SCH (08:15)
[2017-08-26] MEDS: NS 0.9% 1000 ML* 1,000 ML IV SCH ×2 (08:16→17:43)
--- NOTE | 2017-08-26 08:35 | PN ---
Subjective Date of Service: 08/26/17 Interval History: Ms. Parks has no new complaints. She has ongoing stiffness and soreness in her neck, but says her chest burning discomfort has resolved. She reports to me that the reason for admission was blood in her urine and again does report chest stiffness about a week prior to admission that "just wouldn't go away." She has not been out of bed since admission, but normally uses a wheelchair and has limited mobility in her upper extremities. Nursing reports no changes or concerns. Family History: Unchanged from Admission Social History: Unchanged from Admission Past Medical History: Unchanged from Admission Objective Active Medications: Acetaminophen (Tylenol Tab*) 650 mg PO Q4H PRN PRN Reason: PAIN Aspirin (Aspirin Ec Low Dose*) 81 mg PO DAILY [facility] Last Admin: 08/25/17 08:18 Dose: 81 mg Atorvastatin Calcium (Lipitor*) 80 mg PO BEDTIME [facility] Last Admin: 08/25/17 20:59 Dose: 80 mg Bupropion HCl (Bupropion Xl*) 300 mg PO QAM [facility] Last Admin: 08/25/17 08:17 Dose: 300 mg Calcium Carbonate (Tums*) 1,000 mg PO Q4H PRN PRN Reason: INDIGESTION Docusate Sodium (Colace Cap*) 100 mg PO BID [facility] Last Admin: 08/25/17 20:58 Dose: 100 mg Enoxaparin Sodium (Lovenox(*)) 40 mg SUBCUT Q24H [facility] Fentanyl (Duragesic Patch 50 Mcg/Hr*) 50 mcg TRANSDERM Q72H [facility] Last Admin: 08/24/17 19:53 Dose: 50 mcg Folic Acid (Folvite Tab*) 1 mg PO QAM [facility] Last Admin: 08/25/17 08:18 Dose: 1 mg Gabapentin (Neurontin Cap(*)) 300 mg PO QID [facility] Last Admin: 08/25/17 20:58 Dose: 300 mg Glycerin (Glycerin Adult Supp*) 1 supp [place] QAM PRN PRN Reason: CONSTIPATION Heparin Sodium (Porcine) (Heparin Vial(*)) 0 units IV .PER PROTOCOL [facility] PRN Reason: Protocol Last Admin: 08/24/17 18:37 Dose: 3,700 units Sodium Chloride (Ns 0.9% 1000 Ml*) 1,000 mls @ 100 mls/hr IV PER RATE [facility] Last Admin: 08/26/17 08:16 Dose: 100 mls/hr Ciprofloxacin/Dextrose (Cipro 400 Mg Ivpremix(*)) 400 mg in 200 mls @ 200 mls/ hr IVPB Q12H [facility] Last Admin: 08/26/17 04:54 Dose: 200 mls/hr Levothyroxine Sodium (Synthroid Tab*) 75 mcg PO DAILY@0600 [facility] Last Admin: 08/26/17 06:03 Dose: 75 mcg Magnesium Hydroxide (Milk Of Magnesia Liq*) 30 ml PO QPM PRN PRN Reason: CONSTIPATION Melatonin (Melatonin (Nf)) 3 mg PO BEDTIME [facility] PRN Reason: Protocol Last Admin: 08/25/17 20:59 Dose: 3 mg Metoprolol Tartrate (Lopressor Tab*) 25 mg PO BID [facility] Last Admin: 08/25/17 21:31 Dose: Not Given Morphine Sulfate (Morphine Inj (Syringe)*) 4 mg IV Q4H PRN PRN Reason: PAIN Last Admin: 08/26/17 04:58 Dose: 4 mg Multivitamins/Minerals (Theragran/Minerals Tab*) 1 tab PO DAILY [facility] Last Admin: 08/25/17 08:18 Dose: 1 tab Omeprazole (Prilosec Cap*) 20 mg PO 0730 [facility] Last Admin: 08/26/17 08:15 Dose: 20 mg Ondansetron HCl (Zofran Inj*) 4 mg IV Q6H PRN PRN Reason: NAUSEA Last Admin: 08/24/17 20:56 Dose: 4 mg Oxycodone HCl (Roxycodone Tab*) 5 mg PO Q3H PRN PRN Reason: PAIN Last Admin: 08/25/17 13:30 Dose: 5 mg Oxycodone HCl (Roxycodone Tab*) 5 mg PO DAILY [facility] Last Admin: 08/25/17 08:17 Dose: 5 mg Pharmacy Profile Note (Fentanyl Patch Check Q Shift) 1 note N/A 0700,1900 [facility] Last Admin: 08/26/17 07:17 Dose: 1 note Potassium Chloride (Klor Con Er Tab*) 20 meq PO DAILY [facility] Last Admin: 08/25/17 08:18 Dose: 20 meq Prednisone (Deltasone Tab*) 5 mg PO DAILY [facility] Senna (Senokot Tab*) 2 tab PO BEDTIME [facility] Last Admin: 08/25/17 20:58 Dose: 2 tab Tizanidine HCl (Zanaflex Tab*) 2 mg PO TID [facility] Last Admin: 08/25/17 20:59 Dose: 2 mg Vital Signs - 8 hr 08/26/17 08/26/17 08/26/17 00:30 01:00 01:01 Temperature Pulse Rate 90 91 93 Respiratory 14 13 18 Rate Blood Pressure 83/49 89/52 (mmHg) O2 Sat by Pulse 97 97 97 Oximetry 08/26/17 08/26/17 08/26/17 01:30 02:00 02:01 Temperature Pulse Rate 88 89 89 Respiratory 12 16 18 Rate Blood Pressure 85/49 96/62 (mmHg) O2 Sat by Pulse 97 97 97 Oximetry 08/26/17 08/26/17 08/26/17 02:30 02:40 03:00 Temperature Pulse Rate 87 86 86 Respiratory 15 13 13 Rate Blood Pressure 78/54 87/48 91/52 (mmHg) O2 Sat by Pulse 96 96 97 Oximetry 08/26/17 08/26/17 08/26/17 03:01 03:30 04:00 Temperature 99.0 F Pulse Rate 87 90 87 Respiratory 18 19 15 Rate Blood Pressure 88/50 91/50 (mmHg) O2 Sat by Pulse 97 97 96 Oximetry 08/26/17 08/26/17 08/26/17 04:01 04:30 04:58 Temperature Pulse Rate 86 92 Respiratory 15 17 13 Rate Blood Pressure 102/54 (mmHg) O2 Sat by Pulse 97 97 Oximetry 08/26/17 08/26/17 08/26/17 05:00 05:01 05:30 Temperature Pulse Rate 92 91 90 Respiratory 14 10 14 Rate Blood Pressure 120/66 120/58 (mmHg) O2 Sat by Pulse 92 91 78 Oximetry 08/26/17 08/26/17 08/26/17 05:32 06:00 06:01 Temperature Pulse Rate 95 89 91 Respiratory 14 10 11 Rate Blood Pressure 111/62 101/59 (mmHg) O2 Sat by Pulse 92 96 95 Oximetry 08/26/17 08/26/17 08/26/17 06:30 07:00 07:01 Temperature Pulse Rate 88 100 94 Respiratory 20 20 26 Rate Blood Pressure 101/52 143/72 (mmHg) O2 Sat by Pulse 97 98 94 Oximetry 08/26/17 08/26/17 07:30 08:00 Temperature 97.8 F Pulse Rate 96 Respiratory 15 Rate Blood Pressure 116/60 (mmHg) O2 Sat by Pulse 99 Oximetry Oxygen Devices in Use Now: Nasal Cannula Appearance: alert, no distress, frail Eyes: No Scleral Icterus Ears/Nose/Mouth/Throat: NL Teeth, Lips, Gums, - - edentulous Neck: NL Appearance and Movements; NL JVP Respiratory: Symmetrical Chest Expansion and Respiratory Effort, Clear to Auscultation Cardiovascular: NL Sounds; No Murmurs; No JVD, RRR Abdominal: NL Sounds; No Tenderness; No Distention, No Hepatosplenomegaly Lymphatic: No Cervical Adenopathy Extremities: No Edema, - - marked rheumatoid deformities in hands and feet Skin: No Rash or Ulcers Neurological: Alert and Oriented x 3 Nutrition: Taking PO's, - - liquids Result Diagrams: 08/26/17 09:11 08/26/17 09:11 Additional Lab and Data: Lab Results 08/24/17 08/24/17 08/24/17 Range/Units 11:56 11:56 11:56 WBC 9.4 (3.5-10.8) 10^3/ul RBC 3.87 L (4.0-5.4) 10^6/ul Hgb 9.4 L (12.0-16.0) g/dl Hct 30 L (35-47) % MCV 76 L (80-97) fL MCH 24 L (27-31) pg MCHC 32 (31-36) g/dl RDW 17 H (10.5-15) % Plt Count 409 (150-450) 10^3/ul MPV 8 (7.4-10.4) um3 Neut % (Auto) 78.6 (38-83) % Lymph % (Auto) 10.8 L (25-47) % [place] % (Auto) 10.1 H (1-9) % Eos % (Auto) 0.2 (0-6) % Baso % (Auto) 0.3 (0-2) % Absolute Neuts (auto) 7.4 (1.5-7.7) 10^3/ul Absolute Lymphs (auto) 1.0 (1.0-4.8) 10^3/ul Absolute Monos (auto) 1.0 H (0-0.8) 10^3/ul Absolute Eos (auto) 0 (0-0.6) 10^3/ul Absolute Basos (auto) 0 (0-0.2) 10^3/ul Absolute Nucleated RBC 0 10^3/ul Nucleated RBC % 0.2 INR (Anticoag Therapy) 0.99 (0.77-1.02) APTT 27.9 (26.0-36.3) seconds Sodium 133 (133-145) mmol/L Potassium 4.4 (3.5-5.0) mmol/L Chloride 98 L (101-111) mmol/L Carbon Dioxide 28 (22-32) mmol/L Anion Gap 7 (2-11) mmol/L BUN 21 (6-24) mg/dL Creatinine 0.68 (0.51-0.95) mg/dL Est GFR ( Amer) 108.8 (>60) Est GFR (Non-Af Amer) 84.6 (>60) BUN/Creatinine Ratio 30.9 H (8-20) Glucose 93 (70-100) mg/dL Lactic Acid (0.5-2.0) mmol/L Calcium 9.7 (8.6-10.3) mg/dL Total Bilirubin 0.40 (0.2-1.0) mg/dL AST 168 H (13-39) U/L ALT 28 (7-52) U/L Alkaline Phosphatase 170 H (34-104) U/L Total Creatine Kinase 659 H (10-223) U/L CK-MB (CK-2) Pending Troponin I 40.24 H* (<0.04) ng/mL C-Reactive Protein 74.20 H (< 5.00) mg/L Total Protein 6.6 (6.4-8.9) g/dL Albumin 2.8 L (3.2-5.2) g/dL Globulin 3.8 (2-4) g/dL Albumin/Globulin Ratio 0.7 L (1-3) Influenza A (Rapid) (Negative) Influenza B (Rapid) (Negative) 08/24/17 08/24/17 Range/Units 11:56 12:54 WBC (3.5-10.8) 10^3/ul RBC (4.0-5.4) 10^6/ul Hgb (12.0-16.0) g/dl Hct (35-47) % MCV (80-97) fL MCH (27-31) pg MCHC (31-36) g/dl RDW (10.5-15) % Plt Count (150-450) 10^3/ul MPV (7.4-10.4) um3 Neut % (Auto) (38-83) % Lymph % (Auto) (25-47) % [place] % (Auto) (1-9) % Eos % (Auto) (0-6) % Baso % (Auto) (0-2) % Absolute Neuts (auto) (1.5-7.7) 10^3/ul Absolute Lymphs (auto) (1.0-4.8) 10^3/ul Absolute Monos (auto) (0-0.8) 10^3/ul Absolute Eos (auto) (0-0.6) 10^3/ul Absolute Basos (auto) (0-0.2) 10^3/ul Absolute Nucleated RBC 10^3/ul Nucleated RBC % INR (Anticoag Therapy) (0.77-1.02) APTT (26.0-36.3) seconds Sodium (133-145) mmol/L Potassium (3.5-5.0) mmol/L Chloride (101-111) mmol/L Carbon Dioxide (22-32) mmol/L Anion Gap (2-11) mmol/L BUN (6-24) mg/dL Creatinine (0.51-0.95) mg/dL Est GFR ( Amer) (>60) Est GFR (Non-Af Amer) (>60) BUN/Creatinine Ratio (8-20) Glucose (70-100) mg/dL Lactic Acid 1.1 (0.5-2.0) mmol/L Calcium (8.6-10.3) mg/dL Total Bilirubin (0.2-1.0) mg/dL AST (13-39) U/L ALT (7-52) U/L Alkaline Phosphatase (34-104) U/L Total Creatine Kinase (10-223) U/L CK-MB (CK-2) Troponin I (<0.04) ng/mL C-Reactive Protein (< 5.00) mg/L Total Protein (6.4-8.9) g/dL Albumin (3.2-5.2) g/dL Globulin (2-4) g/dL Albumin/Globulin Ratio (1-3) Influenza A (Rapid) Negative (Negative) Influenza B (Rapid) Negative (Negative) Microbiology and Other Data: Microbiology 08/24/17 19:45 Nasal Screen MRSA (PCR)([facility]) - Final Nasal Mrsa Positive Assess/Plan/Problems-Billing Ms Parks is a 72 yo F who has a h/o CAD, RA, recent cervical spine decompression surgery, COPD, HTN, HLD and unspecified type of CHF who presented to the ER with c/o UTI symptoms but also c/o chest pain and was found to an elevated troponin of ~40 and was admitted for NSTEMI. 1. NSTEMI EKG shows inferior Qs and TWIs that are new, and TTE shows multiple wall motion abnormalities. Completed 48 hours on heparin drip, asa continued, as well as metoprolol. Atorvastatin was increased to 80mg qhs. Chest pain is resolved. Initial ischemia is thought to have occurred a week prior to admission, so no LHC is planned. Will confirm with cardiology today. 2. Hypotension now resolved; Ms. Parks says she has taken prednisone 5mg for years. Will resume today; this may have accounted for her hypotension. 3. Microcytic anemia likely related to rheumatoid arthritis, may have been worsened by hematuria and volume resuscitation. Stable, with good response to 2U PRBCs yesterday. No evidence of ongoing bleeding. 3. Uncomplicated UTI Klebsiella sensitive to ciprofloxacin. Continue x 3 days 4. Rheumatoid Arthritis resume predisone 5mg daily 5. Disposition Discussed with her daughter Nela. Plan to return to [place] upon discharge. Transfer to floor today. Advance diet today.
[2017-08-26 09:23] LABS: ABS Basophils 0 10^3/ul (0-0.2); ABS Eosinophils 0.2 10^3/ul (0-0.6); ABS Lymphocytes 0.4 10^3/ul (1.0-4.8); ABS Monocytes 0.8 10^3/ul (0-0.8); ABS Neutrophils 5.6 10^3/ul (1.5-7.7); ABS Nucleated RBC 0 10^3/ul; Eosinophil % 2.8 % (0-6); Hematocrit 31 % (35-47); Hemoglobin 9.8 g/dl (12.0-16.0); Lymphocyte % 6.3 % (25-47); Mean Corpuscular HGB Conc 32 g/dl (31-36); Mean Corpuscular Hemoglobin 25 pg (27-31); Mean Corpuscular Volume 80 fL (80-97); Mean Platelet Volume 8 um3 (7.4-10.4); Nucleated Red Blood Cells % 0; Platelet Count 266 10^3/ul (150-450); Red Blood Count 3.86 10^6/ul (4.0-5.4); Red Cell Distribution Width 17 % (10.5-15); White Blood Count 7.1 10^3/ul (3.5-10.8)
[2017-08-26 09:37] LABS: EGFR Non-African American 120.6 (>60)
[2017-08-26] MEDS: Gabapentin CAP(*) 300 MG PO SCH ×4 (09:42→20:39)
[2017-08-26] MEDS: predniSONE TAB* 5 MG PO SCH (09:43)
[2017-08-26] MEDS: Multivitamins/Minerals TAB PO SCH (09:43)
[2017-08-26] MEDS: tiZANidine TAB* 2 MG PO SCH ×3 (09:43→20:40)
[2017-08-26] MEDS: Metoprolol Tartrate TAB* 25 MG PO SCH (09:43)
[2017-08-26] MEDS: Docusate CAP* 100 MG PO SCH ×2 (09:43→20:39)
[2017-08-26] MEDS: Aspirin EC Low Dose* 81 MG TAB.EC PO SCH (09:43)
[2017-08-26] MEDS: oxyCODONE TAB* 5 MG TAB PO SCH (09:43)
[2017-08-26] MEDS: BuPROPion XL* 300 MG TAB.XL PO SCH (09:43)
[2017-08-26] MEDS: Folic Acid TAB* 1 MG PO SCH (09:43)
[2017-08-26] MEDS: Enoxaparin(*) 40 MG/0.4 ML SYR SUBCUT SCH (09:44)
[2017-08-26] MEDS: Potassium Chlor TAB* 20 MEQ TAB.ER PO SCH (09:44)
[2017-08-26] MEDS ORDERED: NS 0.9% 1000 ML* 1,000 ML IV SCH (13:15)
[2017-08-26] MEDS ORDERED: Metoprolol Tartrate TAB* 25 MG PO SCH (16:49)
[2017-08-26] MEDS: Saline NASAL DROPS 0.65%* 1 DROP BTL BOTH NARES PRN (17:39)
[2017-08-26] MEDS: Senna TAB PO SCH (20:38)
[2017-08-26] MEDS: Atorvastatin* 80 MG TAB PO SCH (20:39)
[2017-08-26] MEDS: CMCS: Melatonin (NF) 3 MG TAB PO SCH (20:40)
[2017-08-27] MEDS: Morphine INJ* 4 MG/ML 1 ML CARPUJECT IV PRN ×3 (02:54→17:50)
[2017-08-27] MEDS: NS 0.9% 1000 ML* 1,000 ML IV SCH (03:44)
[2017-08-27] MEDS: Ciprofloxacin 400MG IVPREMIX(* 400 MG/200 ML BAG IVPB SCH ×2 (06:03→18:22)
[2017-08-27] MEDS: Levothyroxine TAB* 75 MCG TAB PO SCH (06:31)
[2017-08-27] MEDS: fentaNYL Patch Check Q Shift 1 NOTE SCH ×2 (07:24→19:46)
[2017-08-27] MEDS: BuPROPion XL* 300 MG TAB.XL PO SCH (08:54)
[2017-08-27] MEDS: Aspirin EC Low Dose* 81 MG TAB.EC PO SCH (08:54)
[2017-08-27] MEDS: Docusate CAP* 100 MG PO SCH ×2 (08:54→21:30)
[2017-08-27] MEDS: Metoprolol Tartrate TAB* 25 MG PO SCH ×2 (08:54→21:30)
[2017-08-27] MEDS: Multivitamins/Minerals TAB PO SCH (08:54)
[2017-08-27] MEDS: tiZANidine TAB* 2 MG PO SCH ×3 (08:54→21:30)
[2017-08-27] MEDS: predniSONE TAB* 5 MG PO SCH (08:55)
[2017-08-27] MEDS: Folic Acid TAB* 1 MG PO SCH (08:55)
[2017-08-27] MEDS: Enoxaparin(*) 40 MG/0.4 ML SYR SUBCUT SCH (08:55)
[2017-08-27] MEDS: Potassium Chlor TAB* 20 MEQ TAB.ER PO SCH (08:55)
[2017-08-27] MEDS: Gabapentin CAP(*) 300 MG PO SCH ×4 (08:55→21:30)
[2017-08-27] MEDS: oxyCODONE TAB* 5 MG TAB PO SCH (08:55)
[2017-08-27] MEDS: Omeprazole CAP* 20 MG PO SCH (09:20)
--- NOTE | 2017-08-27 17:08 | PN ---
Subjective Date of Service: 08/27/17 Interval History: Feels good today, still complains of shoulder stiffness. No chest pain, sob, palpitations, nausea, vomiting, fevers, chills, diarrhea. Family History: Unchanged from Admission Social History: Unchanged from Admission Past Medical History: Unchanged from Admission Objective Active Medications: Acetaminophen (Tylenol Tab*) 650 mg PO Q4H PRN PRN Reason: PAIN Aspirin (Aspirin Ec Low Dose*) 81 mg PO DAILY [facility] Last Admin: 08/27/17 08:54 Dose: 81 mg Atorvastatin Calcium (Lipitor*) 80 mg PO BEDTIME [facility] Last Admin: 08/26/17 20:39 Dose: 80 mg Bupropion HCl (Bupropion Xl*) 300 mg PO QAM [facility] Last Admin: 08/27/17 08:54 Dose: 300 mg Calcium Carbonate (Tums*) 1,000 mg PO Q4H PRN PRN Reason: INDIGESTION Docusate Sodium (Colace Cap*) 100 mg PO BID [facility] Last Admin: 08/27/17 08:54 Dose: 100 mg Enoxaparin Sodium (Lovenox(*)) 40 mg SUBCUT Q24H [facility] Last Admin: 08/27/17 08:55 Dose: 40 mg Fentanyl (Duragesic Patch 50 Mcg/Hr*) 50 mcg TRANSDERM Q72H [facility] Last Admin: 08/24/17 19:53 Dose: 50 mcg Folic Acid (Folvite Tab*) 1 mg PO QAM [facility] Last Admin: 08/27/17 08:55 Dose: 1 mg Gabapentin (Neurontin Cap(*)) 300 mg PO QID [facility] Last Admin: 08/27/17 14:33 Dose: 300 mg Glycerin (Glycerin Adult Supp*) 1 supp [place] QAM PRN PRN Reason: CONSTIPATION Ciprofloxacin/Dextrose (Cipro 400 Mg Ivpremix(*)) 400 mg in 200 mls @ 200 mls/ hr IVPB Q12H [facility] Last Admin: 08/27/17 06:03 Dose: 200 mls/hr Levothyroxine Sodium (Synthroid Tab*) 75 mcg PO DAILY@0600 [facility] Last Admin: 08/27/17 06:31 Dose: 75 mcg Magnesium Hydroxide (Milk Of Magnesia Liq*) 30 ml PO QPM PRN PRN Reason: CONSTIPATION Melatonin (Melatonin (Nf)) 3 mg PO BEDTIME [facility] PRN Reason: Protocol Last Admin: 08/26/17 20:40 Dose: 3 mg Metoprolol Tartrate (Lopressor Tab*) 12.5 mg PO BID [facility] Last Admin: 08/27/17 08:54 Dose: 12.5 mg Morphine Sulfate (Morphine Inj (Syringe)*) 4 mg IV Q4H PRN PRN Reason: PAIN Last Admin: 08/27/17 08:56 Dose: 4 mg Multivitamins/Minerals (Theragran/Minerals Tab*) 1 tab PO DAILY [facility] Last Admin: 08/27/17 08:54 Dose: 1 tab Omeprazole (Prilosec Cap*) 20 mg PO 0730 [facility] Last Admin: 08/27/17 09:20 Dose: 20 mg Ondansetron HCl (Zofran Inj*) 4 mg IV Q6H PRN PRN Reason: NAUSEA Last Admin: 08/24/17 20:56 Dose: 4 mg Oxycodone HCl (Roxycodone Tab*) 5 mg PO Q3H PRN PRN Reason: PAIN Last Admin: 08/25/17 13:30 Dose: 5 mg Oxycodone HCl (Roxycodone Tab*) 5 mg PO DAILY [facility] Last Admin: 08/27/17 08:55 Dose: 5 mg Pharmacy Profile Note (Fentanyl Patch Check Q Shift) 1 note N/A 0700,1900 [facility] Last Admin: 08/27/17 07:24 Dose: 1 note Potassium Chloride (Klor Con Er Tab*) 20 meq PO DAILY [facility] Last Admin: 08/27/17 08:55 Dose: 20 meq Prednisone (Deltasone Tab*) 5 mg PO DAILY [facility] Last Admin: 08/27/17 08:55 Dose: 5 mg Senna (Senokot Tab*) 2 tab PO BEDTIME [facility] Last Admin: 08/26/17 20:38 Dose: 2 tab Sodium Chloride (Sodium Chloride 0.65% Nasal Drops*) 1 drop BOTH NARES Q4H PRN PRN Reason: CONGESTION Last Admin: 08/26/17 17:39 Dose: 2 spray Tizanidine HCl (Zanaflex Tab*) 2 mg PO TID [facility] Last Admin: 08/27/17 14:33 Dose: 2 mg Vital Signs - 8 hr 08/27/17 08/27/17 08/27/17 09:30 10:00 10:01 Temperature Pulse Rate 99 75 73 Respiratory 23 15 14 Rate Blood Pressure 135/77 71/44 (mmHg) O2 Sat by Pulse 89 96 95 Oximetry 08/27/17 08/27/17 08/27/17 10:16 10:30 11:00 Temperature Pulse Rate 75 75 73 Respiratory 14 13 12 Rate Blood Pressure 82/45 82/45 83/47 (mmHg) O2 Sat by Pulse 95 95 95 Oximetry 08/27/17 08/27/17 08/27/17 11:01 11:28 11:30 Temperature 98.6 F Pulse Rate 74 76 Respiratory 16 21 Rate Blood Pressure 87/51 (mmHg) O2 Sat by Pulse 95 95 Oximetry 08/27/17 08/27/17 08/27/17 12:00 12:01 12:30 Temperature Pulse Rate 72 76 75 Respiratory 13 22 15 Rate Blood Pressure 99/56 123/67 (mmHg) O2 Sat by Pulse 96 96 96 Oximetry 08/27/17 08/27/17 08/27/17 13:00 13:01 13:30 Temperature Pulse Rate 82 78 84 Respiratory 19 15 17 Rate Blood Pressure 116/68 120/66 (mmHg) O2 Sat by Pulse 96 96 98 Oximetry 08/27/17 08/27/17 08/27/17 14:00 14:01 14:30 Temperature Pulse Rate 91 86 88 Respiratory 21 17 15 Rate Blood Pressure 117/65 101/56 (mmHg) O2 Sat by Pulse 94 97 96 Oximetry 08/27/17 08/27/17 08/27/17 15:00 15:01 15:19 Temperature 97.7 F Pulse Rate 83 83 Respiratory 7 17 Rate Blood Pressure 98/53 (mmHg) O2 Sat by Pulse 95 95 Oximetry 08/27/17 15:33 Temperature Pulse Rate Respiratory 22 Rate Blood Pressure (mmHg) O2 Sat by Pulse Oximetry Oxygen Devices in Use Now: None Appearance: frail, no distress Eyes: No Scleral Icterus Ears/Nose/Mouth/Throat: NL Teeth, Lips, Gums Neck: NL Appearance and Movements; NL JVP Respiratory: Symmetrical Chest Expansion and Respiratory Effort Cardiovascular: NL Sounds; No Murmurs; No JVD, RRR Abdominal: NL Sounds; No Tenderness; No Distention, No Hepatosplenomegaly Lymphatic: No Cervical Adenopathy Extremities: No Edema Skin: No Rash or Ulcers Neurological: Alert and Oriented x 3 Result Diagrams: 08/26/17 09:11 08/26/17 09:11 Additional Lab and Data: Lab Results 08/24/17 08/24/17 08/24/17 Range/Units 11:56 11:56 11:56 WBC 9.4 (3.5-10.8) 10^3/ul RBC 3.87 L (4.0-5.4) 10^6/ul Hgb 9.4 L (12.0-16.0) g/dl Hct 30 L (35-47) % MCV 76 L (80-97) fL MCH 24 L (27-31) pg MCHC 32 (31-36) g/dl RDW 17 H (10.5-15) % Plt Count 409 (150-450) 10^3/ul MPV 8 (7.4-10.4) um3 Neut % (Auto) 78.6 (38-83) % Lymph % (Auto) 10.8 L (25-47) % [place] % (Auto) 10.1 H (1-9) % Eos % (Auto) 0.2 (0-6) % Baso % (Auto) 0.3 (0-2) % Absolute Neuts (auto) 7.4 (1.5-7.7) 10^3/ul Absolute Lymphs (auto) 1.0 (1.0-4.8) 10^3/ul Absolute Monos (auto) 1.0 H (0-0.8) 10^3/ul Absolute Eos (auto) 0 (0-0.6) 10^3/ul Absolute Basos (auto) 0 (0-0.2) 10^3/ul Absolute Nucleated RBC 0 10^3/ul Nucleated RBC % 0.2 INR (Anticoag Therapy) 0.99 (0.77-1.02) APTT 27.9 (26.0-36.3) seconds Sodium 133 (133-145) mmol/L Potassium 4.4 (3.5-5.0) mmol/L Chloride 98 L (101-111) mmol/L Carbon Dioxide 28 (22-32) mmol/L Anion Gap 7 (2-11) mmol/L BUN 21 (6-24) mg/dL Creatinine 0.68 (0.51-0.95) mg/dL Est GFR ( Amer) 108.8 (>60) Est GFR (Non-Af Amer) 84.6 (>60) BUN/Creatinine Ratio 30.9 H (8-20) Glucose 93 (70-100) mg/dL Lactic Acid (0.5-2.0) mmol/L Calcium 9.7 (8.6-10.3) mg/dL Total Bilirubin 0.40 (0.2-1.0) mg/dL AST 168 H (13-39) U/L ALT 28 (7-52) U/L Alkaline Phosphatase 170 H (34-104) U/L Total Creatine Kinase 659 H (10-223) U/L CK-MB (CK-2) Pending Troponin I 40.24 H* (<0.04) ng/mL C-Reactive Protein 74.20 H (< 5.00) mg/L Total Protein 6.6 (6.4-8.9) g/dL Albumin 2.8 L (3.2-5.2) g/dL Globulin 3.8 (2-4) g/dL Albumin/Globulin Ratio 0.7 L (1-3) Influenza A (Rapid) (Negative) Influenza B (Rapid) (Negative) 08/24/17 08/24/17 Range/Units 11:56 12:54 WBC (3.5-10.8) 10^3/ul RBC (4.0-5.4) 10^6/ul Hgb (12.0-16.0) g/dl Hct (35-47) % MCV (80-97) fL MCH (27-31) pg MCHC (31-36) g/dl RDW (10.5-15) % Plt Count (150-450) 10^3/ul MPV (7.4-10.4) um3 Neut % (Auto) (38-83) % Lymph % (Auto) (25-47) % [place] % (Auto) (1-9) % Eos % (Auto) (0-6) % Baso % (Auto) (0-2) % Absolute Neuts (auto) (1.5-7.7) 10^3/ul Absolute Lymphs (auto) (1.0-4.8) 10^3/ul Absolute Monos (auto) (0-0.8) 10^3/ul Absolute Eos (auto) (0-0.6) 10^3/ul Absolute Basos (auto) (0-0.2) 10^3/ul Absolute Nucleated RBC 10^3/ul Nucleated RBC % INR (Anticoag Therapy) (0.77-1.02) APTT (26.0-36.3) seconds Sodium (133-145) mmol/L Potassium (3.5-5.0) mmol/L Chloride (101-111) mmol/L Carbon Dioxide (22-32) mmol/L Anion Gap (2-11) mmol/L BUN (6-24) mg/dL Creatinine (0.51-0.95) mg/dL Est GFR ( Amer) (>60) Est GFR (Non-Af Amer) (>60) BUN/Creatinine Ratio (8-20) Glucose (70-100) mg/dL Lactic Acid 1.1 (0.5-2.0) mmol/L Calcium (8.6-10.3) mg/dL Total Bilirubin (0.2-1.0) mg/dL AST (13-39) U/L ALT (7-52) U/L Alkaline Phosphatase (34-104) U/L Total Creatine Kinase (10-223) U/L CK-MB (CK-2) Troponin I (<0.04) ng/mL C-Reactive Protein (< 5.00) mg/L Total Protein (6.4-8.9) g/dL Albumin (3.2-5.2) g/dL Globulin (2-4) g/dL Albumin/Globulin Ratio (1-3) Influenza A (Rapid) Negative (Negative) Influenza B (Rapid) Negative (Negative) Microbiology and Other Data: Microbiology 08/24/17 19:45 Nasal Screen MRSA (PCR)([facility]) - Final Nasal Mrsa Positive Assess/Plan/Problems-Billing Ms Parks is a 72 yo F who has a h/o CAD, RA, recent cervical spine decompression surgery, COPD, HTN, HLD and unspecified type of CHF who presented to the ER with c/o UTI symptoms but also c/o chest pain and was found to an elevated troponin of ~40 and was admitted for NSTEMI. 1. NSTEMI EKG showed inferior Qs and TWIs that were new, and TTE showed multiple wall motion abnormalities. Completed 48 hours on heparin drip, asa continued, as well as metoprolol. Atorvastatin was increased to 80mg qhs. Chest pain is resolved. Initial ischemia is thought to have occurred a week prior to admission, so no LHC is planned. 2. Hypotension now resolved after prednisone was resumed and metoprolol was halved. 3. Microcytic anemia likely related to rheumatoid arthritis, may have been worsened by hematuria and volume resuscitation. Stable, with good response to 2U PRBCs yesterday. No evidence of ongoing bleeding. 3. Uncomplicated UTI Klebsiella sensitive to ciprofloxacin. Continue x 3 days 4. Rheumatoid Arthritis predisone 5mg daily 5. Disposition Discussed with her daughter Nela. Plan to return to [place] upon discharge. Transfer to floor today.
[2017-08-27] MEDS: fentaNYL PATCH 50 MCG/HR TRANSDERM SCH (18:22)
[2017-08-27] MEDS: CMCS: Melatonin (NF) 3 MG TAB PO SCH (21:30)
[2017-08-27] MEDS: Senna TAB PO SCH (21:30)
[2017-08-27] MEDS: Atorvastatin* 80 MG TAB PO SCH (21:30)
[2017-08-28] MEDS: fentaNYL Patch Check Q Shift 1 NOTE SCH ×3 (00:11→18:43)
[2017-08-28] MEDS: oxyCODONE TAB* 5 MG TAB PO PRN ×3 (00:19→08:41)
[2017-08-28] MEDS: Ciprofloxacin 400MG IVPREMIX(* 400 MG/200 ML BAG IVPB SCH ×2 (05:22→17:34)
[2017-08-28] MEDS: Levothyroxine TAB* 75 MCG TAB PO SCH (05:23)
[2017-08-28] MEDS: Omeprazole CAP* 20 MG PO SCH (08:39)
[2017-08-28] MEDS: Enoxaparin(*) 40 MG/0.4 ML SYR SUBCUT SCH (08:39)
[2017-08-28] MEDS: Multivitamins/Minerals TAB PO SCH (08:40)
[2017-08-28] MEDS: Gabapentin CAP(*) 300 MG PO SCH ×4 (08:40→21:04)
[2017-08-28] MEDS: tiZANidine TAB* 2 MG PO SCH ×3 (08:40→21:08)
[2017-08-28] MEDS: oxyCODONE TAB* 5 MG TAB PO SCH (08:40)
[2017-08-28] MEDS: predniSONE TAB* 5 MG PO SCH (08:40)
[2017-08-28] MEDS: Aspirin EC Low Dose* 81 MG TAB.EC PO SCH (08:40)
[2017-08-28] MEDS: Potassium Chlor TAB* 20 MEQ TAB.ER PO SCH (08:40)
[2017-08-28] MEDS: Docusate CAP* 100 MG PO SCH ×2 (08:41→21:06)
[2017-08-28] MEDS: Folic Acid TAB* 1 MG PO SCH (08:41)
[2017-08-28] MEDS: Metoprolol Tartrate TAB* 25 MG PO SCH ×2 (08:41→20:58)
[2017-08-28] MEDS: BuPROPion XL* 300 MG TAB.XL PO SCH (08:41)
[2017-08-28 09:41] LABS: EGFR Non-African American 147.5 (>60)
[2017-08-28] MEDS ORDERED: Magnesium Oxide TAB* 400 MG PO ONE (10:20)
[2017-08-28] MEDS ORDERED: NS 0.9% 500 ML* 500 ML IV ONE (10:20)
[2017-08-28] MEDS ORDERED: Polyethylene Glycol 3350* 17 GM PACKET PO PRN (11:08)
[2017-08-28] MEDS: Acetaminophen TAB* 325 MG PO PRN ×2 (13:16→17:39)
--- NOTE | 2017-08-28 14:49 | PN ---
Subjective Date of Service: 08/28/17 Interval History: No overnight events, feels okay this morning. Ready to get back to [place] to resume her physical therapy. Complains of upper extremity stiffness and weakness. + constipation. No more chest pain, no shortness of breath, fevers, chills. Family History: Unchanged from Admission Social History: Unchanged from Admission Past Medical History: Unchanged from Admission Objective Active Medications: Acetaminophen (Tylenol Tab*) 650 mg PO Q4H PRN PRN Reason: PAIN Last Admin: 08/28/17 13:16 Dose: 650 mg Aspirin (Aspirin Ec Low Dose*) 81 mg PO DAILY [facility] Last Admin: 08/28/17 08:40 Dose: 81 mg Atorvastatin Calcium (Lipitor*) 80 mg PO BEDTIME [facility] Last Admin: 08/27/17 21:30 Dose: 80 mg Bupropion HCl (Bupropion Xl*) 300 mg PO QAM [facility] Last Admin: 08/28/17 08:41 Dose: 300 mg Calcium Carbonate (Tums*) 1,000 mg PO Q4H PRN PRN Reason: INDIGESTION Docusate Sodium (Colace Cap*) 100 mg PO BID [facility] Last Admin: 08/28/17 08:41 Dose: 100 mg Enoxaparin Sodium (Lovenox(*)) 40 mg SUBCUT Q24H [facility] Last Admin: 08/28/17 08:39 Dose: 40 mg Fentanyl (Duragesic Patch 50 Mcg/Hr*) 50 mcg TRANSDERM Q72H [facility] Last Admin: 08/27/17 18:22 Dose: 50 mcg Folic Acid (Folvite Tab*) 1 mg PO QAM [facility] Last Admin: 08/28/17 08:41 Dose: 1 mg Gabapentin (Neurontin Cap(*)) 300 mg PO QID [facility] Last Admin: 08/28/17 13:16 Dose: 300 mg Glycerin (Glycerin Adult Supp*) 1 supp WA QAM PRN PRN Reason: CONSTIPATION Ciprofloxacin/Dextrose (Cipro 400 Mg Ivpremix(*)) 400 mg in 200 mls @ 200 mls/ hr IVPB Q12H [facility] Last Admin: 08/28/17 05:22 Dose: 200 mls/hr Levothyroxine Sodium (Synthroid Tab*) 75 mcg PO DAILY@0600 [facility] Last Admin: 08/28/17 05:23 Dose: 75 mcg Magnesium Hydroxide (Milk Of Magnesia Liq*) 30 ml PO QPM PRN PRN Reason: CONSTIPATION Melatonin (Melatonin (Nf)) 3 mg PO BEDTIME [facility] PRN Reason: Protocol Last Admin: 08/27/17 21:30 Dose: 3 mg Metoprolol Tartrate (Lopressor Tab*) 12.5 mg PO BID [facility] Last Admin: 08/28/17 08:41 Dose: 12.5 mg Morphine Sulfate (Morphine Inj (Syringe)*) 4 mg IV Q4H PRN PRN Reason: PAIN Last Admin: 08/27/17 17:50 Dose: 4 mg Multivitamins/Minerals (Theragran/Minerals Tab*) 1 tab PO DAILY [facility] Last Admin: 08/28/17 08:40 Dose: 1 tab Omeprazole (Prilosec Cap*) 20 mg PO 0730 [facility] Last Admin: 08/28/17 08:39 Dose: 20 mg Ondansetron HCl (Zofran Inj*) 4 mg IV Q6H PRN PRN Reason: NAUSEA Last Admin: 08/24/17 20:56 Dose: 4 mg Oxycodone HCl (Roxycodone Tab*) 5 mg PO Q3H PRN PRN Reason: PAIN Last Admin: 08/28/17 08:41 Dose: 5 mg Oxycodone HCl (Roxycodone Tab*) 5 mg PO DAILY [facility] Last Admin: 08/28/17 08:40 Dose: 5 mg Pharmacy Profile Note (Fentanyl Patch Check Q Shift) 1 note N/A 0700,1900 [facility] Last Admin: 08/28/17 07:52 Dose: 1 note Polyethylene Glycol/Electrolytes (Miralax*) 17 gm PO DAILY PRN PRN Reason: CONSTIPATION Last Admin: 08/28/17 13:17 Dose: 17 gm Potassium Chloride (Klor Con Er Tab*) 20 meq PO DAILY [facility] Last Admin: 08/28/17 08:40 Dose: 20 meq Prednisone (Deltasone Tab*) 5 mg PO DAILY [facility] Last Admin: 08/28/17 08:40 Dose: 5 mg Senna (Senokot Tab*) 2 tab PO BEDTIME [facility] Last Admin: 08/27/17 21:30 Dose: 2 tab Sodium Chloride (Sodium Chloride 0.65% Nasal Drops*) 1 drop BOTH NARES Q4H PRN PRN Reason: CONGESTION Last Admin: 08/26/17 17:39 Dose: 2 spray Tizanidine HCl (Zanaflex Tab*) 2 mg PO TID [facility] Last Admin: 08/28/17 13:16 Dose: 2 mg Vital Signs - 8 hr 08/28/17 08/28/17 08/28/17 07:59 08:30 08:40 Temperature 98.1 F Pulse Rate 99 Respiratory 18 18 20 Rate Blood Pressure 128/67 (mmHg) O2 Sat by Pulse 97 98 Oximetry 08/28/17 08/28/17 08/28/17 08:41 10:07 10:14 Temperature 98.4 F Pulse Rate 27 Respiratory 20 Rate Blood Pressure 79/41 80/50 (mmHg) O2 Sat by Pulse 86 Oximetry 08/28/17 08/28/17 08/28/17 10:40 11:26 12:50 Temperature Pulse Rate Respiratory 17 Rate Blood Pressure 106/60 (mmHg) O2 Sat by Pulse 98 Oximetry 08/28/17 08/28/17 13:16 14:42 Temperature 98.1 F Pulse Rate 86 Respiratory 20 12 Rate Blood Pressure 106/60 (mmHg) O2 Sat by Pulse 97 Oximetry Oxygen Devices in Use Now: Nasal Cannula Appearance: elderly, frail Eyes: No Scleral Icterus Ears/Nose/Mouth/Throat: - - edentulous Neck: NL Appearance and Movements; NL JVP Respiratory: Symmetrical Chest Expansion and Respiratory Effort, Clear to Auscultation Cardiovascular: NL Sounds; No Murmurs; No JVD Abdominal: NL Sounds; No Tenderness; No Distention Lymphatic: No Cervical Adenopathy Extremities: No Edema Skin: No Rash or Ulcers Neurological: Alert and Oriented x 3 Result Diagrams: 08/26/17 09:11 08/28/17 09:09 Additional Lab and Data: Lab Results 08/24/17 08/24/17 08/24/17 Range/Units 11:56 11:56 11:56 WBC 9.4 (3.5-10.8) 10^3/ul RBC 3.87 L (4.0-5.4) 10^6/ul Hgb 9.4 L (12.0-16.0) g/dl Hct 30 L (35-47) % MCV 76 L (80-97) fL MCH 24 L (27-31) pg MCHC 32 (31-36) g/dl RDW 17 H (10.5-15) % Plt Count 409 (150-450) 10^3/ul MPV 8 (7.4-10.4) um3 Neut % (Auto) 78.6 (38-83) % Lymph % (Auto) 10.8 L (25-47) % [place] % (Auto) 10.1 H (1-9) % Eos % (Auto) 0.2 (0-6) % Baso % (Auto) 0.3 (0-2) % Absolute Neuts (auto) 7.4 (1.5-7.7) 10^3/ul Absolute Lymphs (auto) 1.0 (1.0-4.8) 10^3/ul Absolute Monos (auto) 1.0 H (0-0.8) 10^3/ul Absolute Eos (auto) 0 (0-0.6) 10^3/ul Absolute Basos (auto) 0 (0-0.2) 10^3/ul Absolute Nucleated RBC 0 10^3/ul Nucleated RBC % 0.2 INR (Anticoag Therapy) 0.99 (0.77-1.02) APTT 27.9 (26.0-36.3) seconds Sodium 133 (133-145) mmol/L Potassium 4.4 (3.5-5.0) mmol/L Chloride 98 L (101-111) mmol/L Carbon Dioxide 28 (22-32) mmol/L Anion Gap 7 (2-11) mmol/L BUN 21 (6-24) mg/dL Creatinine 0.68 (0.51-0.95) mg/dL Est GFR ( Amer) 108.8 (>60) Est GFR (Non-Af Amer) 84.6 (>60) BUN/Creatinine Ratio 30.9 H (8-20) Glucose 93 (70-100) mg/dL Lactic Acid (0.5-2.0) mmol/L Calcium 9.7 (8.6-10.3) mg/dL Total Bilirubin 0.40 (0.2-1.0) mg/dL AST 168 H (13-39) U/L ALT 28 (7-52) U/L Alkaline Phosphatase 170 H (34-104) U/L Total Creatine Kinase 659 H (10-223) U/L CK-MB (CK-2) Pending Troponin I 40.24 H* (<0.04) ng/mL C-Reactive Protein 74.20 H (< 5.00) mg/L Total Protein 6.6 (6.4-8.9) g/dL Albumin 2.8 L (3.2-5.2) g/dL Globulin 3.8 (2-4) g/dL Albumin/Globulin Ratio 0.7 L (1-3) Influenza A (Rapid) (Negative) Influenza B (Rapid) (Negative) 08/24/17 08/24/17 Range/Units 11:56 12:54 WBC (3.5-10.8) 10^3/ul RBC (4.0-5.4) 10^6/ul Hgb (12.0-16.0) g/dl Hct (35-47) % MCV (80-97) fL MCH (27-31) pg MCHC (31-36) g/dl RDW (10.5-15) % Plt Count (150-450) 10^3/ul MPV (7.4-10.4) um3 Neut % (Auto) (38-83) % Lymph % (Auto) (25-47) % [place] % (Auto) (1-9) % Eos % (Auto) (0-6) % Baso % (Auto) (0-2) % Absolute Neuts (auto) (1.5-7.7) 10^3/ul Absolute Lymphs (auto) (1.0-4.8) 10^3/ul Absolute Monos (auto) (0-0.8) 10^3/ul Absolute Eos (auto) (0-0.6) 10^3/ul Absolute Basos (auto) (0-0.2) 10^3/ul Absolute Nucleated RBC 10^3/ul Nucleated RBC % INR (Anticoag Therapy) (0.77-1.02) APTT (26.0-36.3) seconds Sodium (133-145) mmol/L Potassium (3.5-5.0) mmol/L Chloride (101-111) mmol/L Carbon Dioxide (22-32) mmol/L Anion Gap (2-11) mmol/L BUN (6-24) mg/dL Creatinine (0.51-0.95) mg/dL Est GFR ( Amer) (>60) Est GFR (Non-Af Amer) (>60) BUN/Creatinine Ratio (8-20) Glucose (70-100) mg/dL Lactic Acid 1.1 (0.5-2.0) mmol/L Calcium (8.6-10.3) mg/dL Total Bilirubin (0.2-1.0) mg/dL AST (13-39) U/L ALT (7-52) U/L Alkaline Phosphatase (34-104) U/L Total Creatine Kinase (10-223) U/L CK-MB (CK-2) Troponin I (<0.04) ng/mL C-Reactive Protein (< 5.00) mg/L Total Protein (6.4-8.9) g/dL Albumin (3.2-5.2) g/dL Globulin (2-4) g/dL Albumin/Globulin Ratio (1-3) Influenza A (Rapid) Negative (Negative) Influenza B (Rapid) Negative (Negative) Microbiology and Other Data: Microbiology 08/24/17 19:45 Nasal Screen MRSA (PCR)([facility]) - Final Nasal Mrsa Positive Assess/Plan/Problems-Billing Ms Parks is a 72 yo F who has a h/o CAD, RA, recent cervical spine decompression surgery, COPD, HTN, HLD and unspecified type of CHF who presented to the ER with c/o UTI symptoms but also c/o chest pain and was found to an elevated troponin of ~40 and was admitted for NSTEMI. 1. NSTEMI EKG showed inferior Qs and TWIs that were new, and TTE showed multiple wall motion abnormalities. Completed 48 hours on heparin drip, asa continued, as well as metoprolol. Atorvastatin was increased to 80mg qhs. Chest pain is resolved. Initial ischemia is thought to have occurred a week prior to admission, so no LHC is planned. 2. Hypotension now resolved after prednisone was resumed and metoprolol was halved. 3. Microcytic anemia likely related to rheumatoid arthritis, may have been worsened by hematuria and volume resuscitation. Stable, with good response to 2U PRBCs yesterday. No evidence of ongoing bleeding. 3. Uncomplicated UTI Klebsiella sensitive to ciprofloxacin. Discontinue cipro today. 4. Rheumatoid Arthritis predisone 5mg daily 5. Disposition stable for discharge to [place]; they will not accept her today. Plan for tomorrow.
[2017-08-28] MEDS: Atorvastatin* 80 MG TAB PO SCH (21:06)
[2017-08-28] MEDS: Senna TAB PO SCH (21:07)
[2017-08-28] MEDS: CMCS: Melatonin (NF) 3 MG TAB PO SCH (21:07)
[2017-08-29] MEDS: oxyCODONE TAB* 5 MG TAB PO PRN ×4 (01:18→20:33)
[2017-08-29] MEDS: Ciprofloxacin 400MG IVPREMIX(* 400 MG/200 ML BAG IVPB SCH (04:58)
[2017-08-29] MEDS: Levothyroxine TAB* 75 MCG TAB PO SCH (05:05)
[2017-08-29] MEDS: fentaNYL Patch Check Q Shift 1 NOTE SCH ×2 (06:28→18:43)
[2017-08-29] MEDS: Omeprazole CAP* 20 MG PO SCH (07:49)
[2017-08-29] MEDS: Morphine INJ* 4 MG/ML 1 ML CARPUJECT IV PRN (07:49)
[2017-08-29] MEDS: Docusate CAP* 100 MG PO SCH ×2 (09:29→20:27)
[2017-08-29] MEDS: Aspirin EC Low Dose* 81 MG TAB.EC PO SCH (09:29)
[2017-08-29] MEDS: tiZANidine TAB* 2 MG PO SCH ×3 (09:29→20:27)
[2017-08-29] MEDS: Enoxaparin(*) 40 MG/0.4 ML SYR SUBCUT SCH (09:29)
[2017-08-29] MEDS: Metoprolol Tartrate TAB* 25 MG PO SCH ×2 (09:29→20:28)
[2017-08-29] MEDS: Multivitamins/Minerals TAB PO SCH (09:30)
[2017-08-29] MEDS: Folic Acid TAB* 1 MG PO SCH (09:30)
[2017-08-29] MEDS: Potassium Chlor TAB* 20 MEQ TAB.ER PO SCH (09:30)
[2017-08-29] MEDS: Gabapentin CAP(*) 300 MG PO SCH ×4 (09:30→20:27)
[2017-08-29] MEDS: predniSONE TAB* 5 MG PO SCH (09:30)
[2017-08-29] MEDS: oxyCODONE TAB* 5 MG TAB PO SCH (09:31)
[2017-08-29] MEDS: Saline NASAL DROPS 0.65%* 1 DROP BTL BOTH NARES PRN ×2 (09:50→15:46)
[2017-08-29] MEDS: BuPROPion XL* 300 MG TAB.XL PO SCH (09:50)
[2017-08-29] MEDS: Acetaminophen TAB* 325 MG PO PRN (13:35)
--- NOTE | 2017-08-29 15:55 | PN ---
Subjective Date of Service: 08/29/17 Interval History: No changes, awaiting transfer back to [place]. Family History: Unchanged from Admission Social History: Unchanged from Admission Past Medical History: Unchanged from Admission Objective Active Medications: Acetaminophen (Tylenol Tab*) 650 mg PO Q4H PRN PRN Reason: PAIN Last Admin: 08/29/17 13:35 Dose: 650 mg Aspirin (Aspirin Ec Low Dose*) 81 mg PO DAILY [facility] Last Admin: 08/29/17 09:29 Dose: 81 mg Atorvastatin Calcium (Lipitor*) 80 mg PO BEDTIME [facility] Last Admin: 08/28/17 21:06 Dose: 80 mg Bupropion HCl (Bupropion Xl*) 300 mg PO QAM [facility] Last Admin: 08/29/17 09:50 Dose: 300 mg Calcium Carbonate (Tums*) 1,000 mg PO Q4H PRN PRN Reason: INDIGESTION Docusate Sodium (Colace Cap*) 100 mg PO BID [facility] Last Admin: 08/29/17 09:29 Dose: 100 mg Enoxaparin Sodium (Lovenox(*)) 40 mg SUBCUT Q24H [facility] Last Admin: 08/29/17 09:29 Dose: 40 mg Fentanyl (Duragesic Patch 50 Mcg/Hr*) 50 mcg TRANSDERM Q72H [facility] Last Admin: 08/27/17 18:22 Dose: 50 mcg Folic Acid (Folvite Tab*) 1 mg PO QAM [facility] Last Admin: 08/29/17 09:30 Dose: 1 mg Gabapentin (Neurontin Cap(*)) 300 mg PO QID [facility] Last Admin: 08/29/17 13:34 Dose: 300 mg Glycerin (Glycerin Adult Supp*) 1 supp [place] QAM PRN PRN Reason: CONSTIPATION Levothyroxine Sodium (Synthroid Tab*) 75 mcg PO DAILY@0600 [facility] Last Admin: 08/29/17 05:05 Dose: 75 mcg Magnesium Hydroxide (Milk Of Magnesia Liq*) 30 ml PO QPM PRN PRN Reason: CONSTIPATION Melatonin (Melatonin (Nf)) 3 mg PO BEDTIME [facility] PRN Reason: Protocol Last Admin: 08/28/17 21:07 Dose: 3 mg Metoprolol Tartrate (Lopressor Tab*) 12.5 mg PO BID [facility] Last Admin: 08/29/17 09:29 Dose: 12.5 mg Morphine Sulfate (Morphine Inj (Syringe)*) 4 mg IV Q4H PRN PRN Reason: PAIN Last Admin: 08/29/17 07:49 Dose: 4 mg Multivitamins/Minerals (Theragran/Minerals Tab*) 1 tab PO DAILY [facility] Last Admin: 08/29/17 09:30 Dose: 1 tab Omeprazole (Prilosec Cap*) 20 mg PO 0730 [facility] Last Admin: 08/29/17 07:49 Dose: 20 mg Ondansetron HCl (Zofran Inj*) 4 mg IV Q6H PRN PRN Reason: NAUSEA Last Admin: 08/24/17 20:56 Dose: 4 mg Oxycodone HCl (Roxycodone Tab*) 5 mg PO Q3H PRN PRN Reason: PAIN Last Admin: 08/29/17 15:45 Dose: 5 mg Oxycodone HCl (Roxycodone Tab*) 5 mg PO DAILY [facility] Last Admin: 08/29/17 09:31 Dose: 5 mg Pharmacy Profile Note (Fentanyl Patch Check Q Shift) 1 note N/A 0700,1900 [facility] Last Admin: 08/29/17 06:28 Dose: 1 note Polyethylene Glycol/Electrolytes (Miralax*) 17 gm PO DAILY PRN PRN Reason: CONSTIPATION Last Admin: 08/28/17 13:17 Dose: 17 gm Potassium Chloride (Klor Con Er Tab*) 20 meq PO DAILY [facility] Last Admin: 08/29/17 09:30 Dose: 20 meq Prednisone (Deltasone Tab*) 5 mg PO DAILY [facility] Last Admin: 08/29/17 09:30 Dose: 5 mg Senna (Senokot Tab*) 2 tab PO BEDTIME [facility] Last Admin: 08/28/17 21:07 Dose: 2 tab Sodium Chloride (Sodium Chloride 0.65% Nasal Drops*) 1 drop BOTH NARES Q4H PRN PRN Reason: CONGESTION Last Admin: 08/29/17 15:46 Dose: 1 spray Tizanidine HCl (Zanaflex Tab*) 2 mg PO TID [facility] Last Admin: 08/29/17 13:35 Dose: 2 mg Vital Signs - 8 hr 08/29/17 08/29/17 08/29/17 09:00 09:30 09:31 Temperature Pulse Rate Respiratory 18 18 18 Rate Blood Pressure (mmHg) O2 Sat by Pulse Oximetry 0108/29/17 08/29/17 11:16 12:54 13:34 Temperature 98.8 F Pulse Rate 89 Respiratory 18 20 18 Rate Blood Pressure 80/45 (mmHg) O2 Sat by Pulse 94 Oximetry 08/29/17 15:45 Temperature Pulse Rate Respiratory 16 Rate Blood Pressure (mmHg) O2 Sat by Pulse Oximetry Oxygen Devices in Use Now: None Appearance: alert, ill appearing Eyes: No Scleral Icterus Ears/Nose/Mouth/Throat: NL Teeth, Lips, Gums Neck: NL Appearance and Movements; NL JVP Respiratory: Symmetrical Chest Expansion and Respiratory Effort, Clear to Auscultation Cardiovascular: NL Sounds; No Murmurs; No JVD, RRR Abdominal: NL Sounds; No Tenderness; No Distention, No Hepatosplenomegaly Lymphatic: No Cervical Adenopathy, No Axillary Adenopathy Extremities: No Edema, - - severe ulnar deformities; decreased range of motion in b/l shoulders Skin: No Rash or Ulcers Neurological: Alert and Oriented x 3 Result Diagrams: 08/26/17 09:11 08/28/17 09:09 Additional Lab and Data: Lab Results 08/24/17 08/24/17 08/24/17 Range/Units 11:56 11:56 11:56 WBC 9.4 (3.5-10.8) 10^3/ul RBC 3.87 L (4.0-5.4) 10^6/ul Hgb 9.4 L (12.0-16.0) g/dl Hct 30 L (35-47) % MCV 76 L (80-97) fL MCH 24 L (27-31) pg MCHC 32 (31-36) g/dl RDW 17 H (10.5-15) % Plt Count 409 (150-450) 10^3/ul MPV 8 (7.4-10.4) um3 Neut % (Auto) 78.6 (38-83) % Lymph % (Auto) 10.8 L (25-47) % [place] % (Auto) 10.1 H (1-9) % Eos % (Auto) 0.2 (0-6) % Baso % (Auto) 0.3 (0-2) % Absolute Neuts (auto) 7.4 (1.5-7.7) 10^3/ul Absolute Lymphs (auto) 1.0 (1.0-4.8) 10^3/ul Absolute Monos (auto) 1.0 H (0-0.8) 10^3/ul Absolute Eos (auto) 0 (0-0.6) 10^3/ul Absolute Basos (auto) 0 (0-0.2) 10^3/ul Absolute Nucleated RBC 0 10^3/ul Nucleated RBC % 0.2 INR (Anticoag Therapy) 0.99 (0.77-1.02) APTT 27.9 (26.0-36.3) seconds Sodium 133 (133-145) mmol/L Potassium 4.4 (3.5-5.0) mmol/L Chloride 98 L (101-111) mmol/L Carbon Dioxide 28 (22-32) mmol/L Anion Gap 7 (2-11) mmol/L BUN 21 (6-24) mg/dL Creatinine 0.68 (0.51-0.95) mg/dL Est GFR ( Amer) 108.8 (>60) Est GFR (Non-Af Amer) 84.6 (>60) BUN/Creatinine Ratio 30.9 H (8-20) Glucose 93 (70-100) mg/dL Lactic Acid (0.5-2.0) mmol/L Calcium 9.7 (8.6-10.3) mg/dL Total Bilirubin 0.40 (0.2-1.0) mg/dL AST 168 H (13-39) U/L ALT 28 (7-52) U/L Alkaline Phosphatase 170 H (34-104) U/L Total Creatine Kinase 659 H (10-223) U/L CK-MB (CK-2) Pending Troponin I 40.24 H* (<0.04) ng/mL C-Reactive Protein 74.20 H (< 5.00) mg/L Total Protein 6.6 (6.4-8.9) g/dL Albumin 2.8 L (3.2-5.2) g/dL Globulin 3.8 (2-4) g/dL Albumin/Globulin Ratio 0.7 L (1-3) Influenza A (Rapid) (Negative) Influenza B (Rapid) (Negative) 08/24/17 08/24/17 Range/Units 11:56 12:54 WBC (3.5-10.8) 10^3/ul RBC (4.0-5.4) 10^6/ul Hgb (12.0-16.0) g/dl Hct (35-47) % MCV (80-97) fL MCH (27-31) pg MCHC (31-36) g/dl RDW (10.5-15) % Plt Count (150-450) 10^3/ul MPV (7.4-10.4) um3 Neut % (Auto) (38-83) % Lymph % (Auto) (25-47) % [place] % (Auto) (1-9) % Eos % (Auto) (0-6) % Baso % (Auto) (0-2) % Absolute Neuts (auto) (1.5-7.7) 10^3/ul Absolute Lymphs (auto) (1.0-4.8) 10^3/ul Absolute Monos (auto) (0-0.8) 10^3/ul Absolute Eos (auto) (0-0.6) 10^3/ul Absolute Basos (auto) (0-0.2) 10^3/ul Absolute Nucleated RBC 10^3/ul Nucleated RBC % INR (Anticoag Therapy) (0.77-1.02) APTT (26.0-36.3) seconds Sodium (133-145) mmol/L Potassium (3.5-5.0) mmol/L Chloride (101-111) mmol/L Carbon Dioxide (22-32) mmol/L Anion Gap (2-11) mmol/L BUN (6-24) mg/dL Creatinine (0.51-0.95) mg/dL Est GFR ( Amer) (>60) Est GFR (Non-Af Amer) (>60) BUN/Creatinine Ratio (8-20) Glucose (70-100) mg/dL Lactic Acid 1.1 (0.5-2.0) mmol/L Calcium (8.6-10.3) mg/dL Total Bilirubin (0.2-1.0) mg/dL AST (13-39) U/L ALT (7-52) U/L Alkaline Phosphatase (34-104) U/L Total Creatine Kinase (10-223) U/L CK-MB (CK-2) Troponin I (<0.04) ng/mL C-Reactive Protein (< 5.00) mg/L Total Protein (6.4-8.9) g/dL Albumin (3.2-5.2) g/dL Globulin (2-4) g/dL Albumin/Globulin Ratio (1-3) Influenza A (Rapid) Negative (Negative) Influenza B (Rapid) Negative (Negative) Microbiology and Other Data: Microbiology 08/24/17 19:45 Nasal Screen MRSA (PCR)([facility]) - Final Nasal Mrsa Positive Assess/Plan/Problems-Billing Ms Parks is a 72 yo F who has a h/o CAD, RA, recent cervical spine decompression surgery, COPD, HTN, HLD and unspecified type of CHF who presented to the ER with c/o UTI symptoms but also c/o chest pain and was found to an elevated troponin of ~40 and was admitted for NSTEMI. 1. NSTEMI EKG showed inferior Qs and TWIs that were new, and TTE showed multiple wall motion abnormalities. Completed 48 hours on heparin drip, asa continued, as well as metoprolol. Atorvastatin was increased to 80mg qhs. Chest pain is resolved. Initial ischemia is thought to have occurred a week prior to admission, so no LHC is planned. 2. Hypotension now resolved after prednisone was resumed and metoprolol was halved. 3. Microcytic anemia likely related to rheumatoid arthritis, may have been worsened by hematuria and volume resuscitation. Stable, with good response to 2U PRBCs on admission. No evidence of ongoing bleeding. 3. Uncomplicated UTI resolved 4. Rheumatoid Arthritis prednisone 5mg daily 5. Disposition stable for discharge to [place]
[2017-08-29] MEDS: Senna TAB PO SCH (20:27)
[2017-08-29] MEDS: Atorvastatin* 80 MG TAB PO SCH (20:27)
[2017-08-29] MEDS: CMCS: Melatonin (NF) 3 MG TAB PO SCH (20:27)
[2017-08-30] MEDS: Levothyroxine TAB* 75 MCG TAB PO SCH (04:47)
[2017-08-30] MEDS: oxyCODONE TAB* 5 MG TAB PO PRN ×4 (04:48→21:15)
[2017-08-30] MEDS: fentaNYL Patch Check Q Shift 1 NOTE SCH ×2 (06:37→18:18)
[2017-08-30] MEDS: oxyCODONE TAB* 5 MG TAB PO SCH (07:56)
[2017-08-30] MEDS: Docusate CAP* 100 MG PO SCH ×2 (07:56→21:14)
[2017-08-30] MEDS: Multivitamins/Minerals TAB PO SCH (07:56)
[2017-08-30] MEDS: Aspirin EC Low Dose* 81 MG TAB.EC PO SCH (07:56)
[2017-08-30] MEDS: Omeprazole CAP* 20 MG PO SCH (07:56)
[2017-08-30] MEDS: Potassium Chlor TAB* 20 MEQ TAB.ER PO SCH (07:56)
[2017-08-30] MEDS: tiZANidine TAB* 2 MG PO SCH ×3 (07:56→21:15)
[2017-08-30] MEDS: predniSONE TAB* 5 MG PO SCH (07:56)
[2017-08-30] MEDS: Gabapentin CAP(*) 300 MG PO SCH ×4 (07:57→21:15)
[2017-08-30] MEDS: Enoxaparin(*) 40 MG/0.4 ML SYR SUBCUT SCH (07:57)
[2017-08-30] MEDS: BuPROPion XL* 300 MG TAB.XL PO SCH (07:57)
[2017-08-30] MEDS: Folic Acid TAB* 1 MG PO SCH (07:57)
[2017-08-30] MEDS: Metoprolol Tartrate TAB* 25 MG PO SCH ×2 (07:57→21:15)
[2017-08-30] MEDS: Ondansetron INJ* 2 MG/ML VIAL IV PRN (09:10)
[2017-08-30] MEDS: fentaNYL PATCH 50 MCG/HR TRANSDERM SCH (17:32)
--- NOTE | 2017-08-30 18:02 | PN ---
Subjective Date of Service: 08/30/17 Interval History: Ms. Parks is upset today and anxious to get back to [facility] to resume rehab. She continues to have pain in her upper extremities, but says it is better controlled today. No more chest pain. Family History: Unchanged from Admission Social History: Unchanged from Admission Past Medical History: Unchanged from Admission Objective Active Medications: Acetaminophen (Tylenol Tab*) 650 mg PO Q4H PRN PRN Reason: PAIN Last Admin: 08/29/17 13:35 Dose: 650 mg Aspirin (Aspirin Ec Low Dose*) 81 mg PO DAILY [facility] Last Admin: 08/30/17 07:56 Dose: 81 mg Atorvastatin Calcium (Lipitor*) 80 mg PO BEDTIME [facility] Last Admin: 08/29/17 20:27 Dose: 80 mg Bupropion HCl (Bupropion Xl*) 300 mg PO QAM [facility] Last Admin: 08/30/17 07:57 Dose: 300 mg Calcium Carbonate (Tums*) 1,000 mg PO Q4H PRN PRN Reason: INDIGESTION Docusate Sodium (Colace Cap*) 100 mg PO BID [facility] Last Admin: 08/30/17 07:56 Dose: 100 mg Enoxaparin Sodium (Lovenox(*)) 40 mg SUBCUT Q24H [facility] Last Admin: 08/30/17 07:57 Dose: 40 mg Fentanyl (Duragesic Patch 50 Mcg/Hr*) 50 mcg TRANSDERM Q72H [facility] Last Admin: 08/30/17 17:32 Dose: 50 mcg Folic Acid (Folvite Tab*) 1 mg PO QAM [facility] Last Admin: 08/30/17 07:57 Dose: 1 mg Gabapentin (Neurontin Cap(*)) 300 mg PO QID [facility] Last Admin: 08/30/17 17:31 Dose: 300 mg Glycerin (Glycerin Adult Supp*) 1 supp AL QAM PRN PRN Reason: CONSTIPATION Levothyroxine Sodium (Synthroid Tab*) 75 mcg PO DAILY@0600 [facility] Last Admin: 08/30/17 04:47 Dose: 75 mcg Magnesium Hydroxide (Milk Of Magnesia Liq*) 30 ml PO QPM PRN PRN Reason: CONSTIPATION Melatonin (Melatonin (Nf)) 3 mg PO BEDTIME [facility] PRN Reason: Protocol Last Admin: 08/29/17 20:27 Dose: 3 mg Metoprolol Tartrate (Lopressor Tab*) 12.5 mg PO BID [facility] Last Admin: 08/30/17 07:57 Dose: 12.5 mg Morphine Sulfate (Morphine Inj (Syringe)*) 4 mg IV Q4H PRN PRN Reason: PAIN Last Admin: 08/29/17 07:49 Dose: 4 mg Multivitamins/Minerals (Theragran/Minerals Tab*) 1 tab PO DAILY [facility] Last Admin: 08/30/17 07:56 Dose: 1 tab Omeprazole (Prilosec Cap*) 20 mg PO 0730 [facility] Last Admin: 08/30/17 07:56 Dose: 20 mg Ondansetron HCl (Zofran Inj*) 4 mg IV Q6H PRN PRN Reason: NAUSEA Last Admin: 08/30/17 09:10 Dose: 4 mg Oxycodone HCl (Roxycodone Tab*) 5 mg PO Q3H PRN PRN Reason: PAIN Last Admin: 08/30/17 17:32 Dose: 5 mg Oxycodone HCl (Roxycodone Tab*) 5 mg PO DAILY [facility] Last Admin: 08/30/17 07:56 Dose: 5 mg Pharmacy Profile Note (Fentanyl Patch Check Q Shift) 1 note N/A 0700,1900 [facility] Last Admin: 08/30/17 06:37 Dose: 1 note Polyethylene Glycol/Electrolytes (Miralax*) 17 gm PO DAILY PRN PRN Reason: CONSTIPATION Last Admin: 08/28/17 13:17 Dose: 17 gm Potassium Chloride (Klor Con Er Tab*) 20 meq PO DAILY [facility] Last Admin: 08/30/17 07:56 Dose: 20 meq Prednisone (Deltasone Tab*) 5 mg PO DAILY [facility] Last Admin: 08/30/17 07:56 Dose: 5 mg Senna (Senokot Tab*) 2 tab PO BEDTIME [facility] Last Admin: 08/29/17 20:27 Dose: 2 tab Sodium Chloride (Sodium Chloride 0.65% Nasal Drops*) 1 drop BOTH NARES Q4H PRN PRN Reason: CONGESTION Last Admin: 08/29/17 15:46 Dose: 1 spray Tizanidine HCl (Zanaflex Tab*) 2 mg PO TID [facility] Last Admin: 08/30/17 13:29 Dose: 2 mg Vital Signs - 8 hr 08/30/17 08/30/17 08/30/17 10:22 11:48 12:02 Temperature 98.2 F Pulse Rate 96 Respiratory 20 20 18 Rate Blood Pressure 106/61 (mmHg) O2 Sat by Pulse 94 Oximetry 08/30/17 08/30/17 08/30/17 13:29 13:55 15:30 Temperature 98.3 F Pulse Rate 97 Respiratory 18 18 16 Rate Blood Pressure 131/65 (mmHg) O2 Sat by Pulse 93 Oximetry 08/30/17 08/30/17 08/30/17 16:03 17:31 17:32 Temperature Pulse Rate Respiratory 20 18 18 Rate Blood Pressure (mmHg) O2 Sat by Pulse Oximetry Oxygen Devices in Use Now: None Appearance: frail, ill appearing Eyes: No Scleral Icterus Ears/Nose/Mouth/Throat: NL Teeth, Lips, Gums Neck: NL Appearance and Movements; NL JVP Respiratory: Symmetrical Chest Expansion and Respiratory Effort Cardiovascular: RRR, - - +S4 Abdominal: NL Sounds; No Tenderness; No Distention, No Hepatosplenomegaly Lymphatic: No Cervical Adenopathy Extremities: - - profound ulnar deformities Skin: No Rash or Ulcers Neurological: Alert and Oriented x 3 Result Diagrams: 08/26/17 09:11 08/28/17 09:09 Additional Lab and Data: Lab Results 08/24/17 08/24/17 08/24/17 Range/Units 11:56 11:56 11:56 WBC 9.4 (3.5-10.8) 10^3/ul RBC 3.87 L (4.0-5.4) 10^6/ul Hgb 9.4 L (12.0-16.0) g/dl Hct 30 L (35-47) % MCV 76 L (80-97) fL MCH 24 L (27-31) pg MCHC 32 (31-36) g/dl RDW 17 H (10.5-15) % Plt Count 409 (150-450) 10^3/ul MPV 8 (7.4-10.4) um3 Neut % (Auto) 78.6 (38-83) % Lymph % (Auto) 10.8 L (25-47) % [place] % (Auto) 10.1 H (1-9) % Eos % (Auto) 0.2 (0-6) % Baso % (Auto) 0.3 (0-2) % Absolute Neuts (auto) 7.4 (1.5-7.7) 10^3/ul Absolute Lymphs (auto) 1.0 (1.0-4.8) 10^3/ul Absolute Monos (auto) 1.0 H (0-0.8) 10^3/ul Absolute Eos (auto) 0 (0-0.6) 10^3/ul Absolute Basos (auto) 0 (0-0.2) 10^3/ul Absolute Nucleated RBC 0 10^3/ul Nucleated RBC % 0.2 INR (Anticoag Therapy) 0.99 (0.77-1.02) APTT 27.9 (26.0-36.3) seconds Sodium 133 (133-145) mmol/L Potassium 4.4 (3.5-5.0) mmol/L Chloride 98 L (101-111) mmol/L Carbon Dioxide 28 (22-32) mmol/L Anion Gap 7 (2-11) mmol/L BUN 21 (6-24) mg/dL Creatinine 0.68 (0.51-0.95) mg/dL Est GFR ( Amer) 108.8 (>60) Est GFR (Non-Af Amer) 84.6 (>60) BUN/Creatinine Ratio 30.9 H (8-20) Glucose 93 (70-100) mg/dL Lactic Acid (0.5-2.0) mmol/L Calcium 9.7 (8.6-10.3) mg/dL Total Bilirubin 0.40 (0.2-1.0) mg/dL AST 168 H (13-39) U/L ALT 28 (7-52) U/L Alkaline Phosphatase 170 H (34-104) U/L Total Creatine Kinase 659 H (10-223) U/L CK-MB (CK-2) Pending Troponin I 40.24 H* (<0.04) ng/mL C-Reactive Protein 74.20 H (< 5.00) mg/L Total Protein 6.6 (6.4-8.9) g/dL Albumin 2.8 L (3.2-5.2) g/dL Globulin 3.8 (2-4) g/dL Albumin/Globulin Ratio 0.7 L (1-3) Influenza A (Rapid) (Negative) Influenza B (Rapid) (Negative) 08/24/17 08/24/17 Range/Units 11:56 12:54 WBC (3.5-10.8) 10^3/ul RBC (4.0-5.4) 10^6/ul Hgb (12.0-16.0) g/dl Hct (35-47) % MCV (80-97) fL MCH (27-31) pg MCHC (31-36) g/dl RDW (10.5-15) % Plt Count (150-450) 10^3/ul MPV (7.4-10.4) um3 Neut % (Auto) (38-83) % Lymph % (Auto) (25-47) % [place] % (Auto) (1-9) % Eos % (Auto) (0-6) % Baso % (Auto) (0-2) % Absolute Neuts (auto) (1.5-7.7) 10^3/ul Absolute Lymphs (auto) (1.0-4.8) 10^3/ul Absolute Monos (auto) (0-0.8) 10^3/ul Absolute Eos (auto) (0-0.6) 10^3/ul Absolute Basos (auto) (0-0.2) 10^3/ul Absolute Nucleated RBC 10^3/ul Nucleated RBC % INR (Anticoag Therapy) (0.77-1.02) APTT (26.0-36.3) seconds Sodium (133-145) mmol/L Potassium (3.5-5.0) mmol/L Chloride (101-111) mmol/L Carbon Dioxide (22-32) mmol/L Anion Gap (2-11) mmol/L BUN (6-24) mg/dL Creatinine (0.51-0.95) mg/dL Est GFR ( Amer) (>60) Est GFR (Non-Af Amer) (>60) BUN/Creatinine Ratio (8-20) Glucose (70-100) mg/dL Lactic Acid 1.1 (0.5-2.0) mmol/L Calcium (8.6-10.3) mg/dL Total Bilirubin (0.2-1.0) mg/dL AST (13-39) U/L ALT (7-52) U/L Alkaline Phosphatase (34-104) U/L Total Creatine Kinase (10-223) U/L CK-MB (CK-2) Troponin I (<0.04) ng/mL C-Reactive Protein (< 5.00) mg/L Total Protein (6.4-8.9) g/dL Albumin (3.2-5.2) g/dL Globulin (2-4) g/dL Albumin/Globulin Ratio (1-3) Influenza A (Rapid) Negative (Negative) Influenza B (Rapid) Negative (Negative) Microbiology and Other Data: Microbiology 08/24/17 19:45 Nasal Screen MRSA (PCR)([facility]) - Final Nasal Mrsa Positive Assess/Plan/Problems-Billing Ms Parks is a 72 yo F who has a h/o CAD, RA, recent cervical spine decompression surgery, COPD, HTN, HLD and unspecified type of CHF who presented to the ER with c/o UTI symptoms but also c/o chest pain and was found to an elevated troponin of ~40 and was admitted for NSTEMI. 1. NSTEMI EKG showed inferior Qs and TWIs that were new, and TTE showed multiple wall motion abnormalities. Completed 48 hours on heparin drip, asa continued, as well as metoprolol. Atorvastatin was increased to 80mg qhs. Chest pain is resolved. Initial ischemia is thought to have occurred a week prior to admission, so no LHC is planned. She now has an S4 on exam; will recheck xray tomorrow morning; she may need diuresis. 2. Hypotension now resolved after prednisone was resumed and metoprolol was halved. 3. Microcytic anemia likely related to rheumatoid arthritis, may have been worsened by hematuria and volume resuscitation. Stable, with good response to 2U PRBCs on admission. No evidence of ongoing bleeding. 3. Uncomplicated UTI resolved 4. Rheumatoid Arthritis prednisone 5mg daily 5. Disposition stable for discharge to [facility]
[2017-08-30] MEDS ORDERED: Furosemide IV* 10 MG/ML 2 ML VIAL (20 MG) IV ONE (18:08)
[2017-08-30] MEDS: Senna TAB PO SCH (21:14)
[2017-08-30] MEDS: CMCS: Melatonin (NF) 3 MG TAB PO SCH (21:15)
[2017-08-30] MEDS: Atorvastatin* 80 MG TAB PO SCH (21:15)
--- NOTE | 2017-08-30 21:47 | RAD ---
INDICATION: Dyspnea COMPARISON: Most recent chest x-rays dated August 24, 2017 TECHNIQUE: Single AP portable view of the chest was obtained. FINDINGS: Image quality is compromised due to the relative inferiority of a portable chest x-ray. The heart and mediastinum exhibit normal size and contour. There is calcification overlying the arch of the aorta. There is density obscuring the left lung base and causing left costophrenic angle blunting. More superiorly the lungs are adequately aerated. There are transpedicular fixation screws and rods overlying the cervical spine. IMPRESSION: Density of securing the left lung base and causing left costophrenic angle blunting could be consolidation, atelectasis and/or pleural effusion.
[2017-08-31] MEDS: oxyCODONE TAB* 5 MG TAB PO PRN ×2 (00:05→05:16)
[2017-08-31] MEDS: Levothyroxine TAB* 75 MCG TAB PO SCH (05:16)
[2017-08-31] MEDS: fentaNYL Patch Check Q Shift 1 NOTE SCH (06:40)
[2017-08-31] MEDS: Metoprolol Tartrate TAB* 25 MG PO SCH (07:57)
[2017-08-31] MEDS: tiZANidine TAB* 2 MG PO SCH ×2 (07:58→13:19)
[2017-08-31] MEDS: Gabapentin CAP(*) 300 MG PO SCH ×2 (07:58→13:19)
[2017-08-31] MEDS: Docusate CAP* 100 MG PO SCH (07:58)
[2017-08-31] MEDS: Aspirin EC Low Dose* 81 MG TAB.EC PO SCH (07:58)
[2017-08-31] MEDS: Omeprazole CAP* 20 MG PO SCH (07:58)
[2017-08-31] MEDS: predniSONE TAB* 5 MG PO SCH (07:58)
[2017-08-31] MEDS: oxyCODONE TAB* 5 MG TAB PO SCH (07:59)
[2017-08-31] MEDS: Multivitamins/Minerals TAB PO SCH (07:59)
[2017-08-31] MEDS: Folic Acid TAB* 1 MG PO SCH (07:59)
[2017-08-31] MEDS: Acetaminophen TAB* 325 MG PO PRN (07:59)
[2017-08-31] MEDS: Enoxaparin(*) 40 MG/0.4 ML SYR SUBCUT SCH (08:00)
[2017-08-31] MEDS: Potassium Chlor TAB* 20 MEQ TAB.ER PO SCH (08:00)
[2017-08-31] MEDS: BuPROPion XL* 300 MG TAB.XL PO SCH (10:14)
--- NOTE | 2017-08-31 12:42 | DS ---
CC: Dr. Fuller; Dr. Pedroza * DATE OF ADMISSION: 08/24/2017. DATE OF DISCHARGE: 08/31/2017. PRIMARY CARE PHYSICIAN: Dr. Fuller. HAND TUBE WINDER: Dr. Pedroza. PRIMARY DIAGNOSIS: NSTEMI. SECONDARY DIAGNOSES: 1. Urinary tract infection with klebsiella pneumoniae. 2. Microcytic anemia. 3. Rheumatoid arthritis. 4. Coronary artery disease. 5. COPD. 6. History of DVT. 7. Hypothyroidism. 8. CHF. 9. Hypertension. 10. Hyperlipidemia. 11. Hyponatremia. MEDICATIONS AT DISCHARGE: 1. Calcium Carbonate 1,000 mg every 4 hours as needed. 2. Oxycodone 5 mg every 3 hours as needed. 3. Glycerin suppository one tab in the morning as needed. 4. Magnesium Hydroxide 30 ml in the evening as needed. 5. Tizanidine 2 mg three times a day. 6. Senna two tabs at bedtime as needed. 7. Oxycodone 5 mg daily. 8. Docusate 100 mg twice daily. 9. Potassium Chloride 20 mEq daily. 10. Omeprazole 20 mg daily. 11. Folic acid one tab daily. 12. Multivitamin one tab daily. 13. Bupropion XL 300 mg in the morning. 14. Aspirin 81 mg daily. 15. Fentanyl patch 50 mcg every 72 hours. 16. Ondansetron 4 mg every 6 hours as needed for nausea. 17. Levothyroxine 75 mcg daily. 18. Gabapentin 300 mg four times a day. 19. Acetaminophen 1,000 mg three times a day. 20. Melatonin 3 mg at bedtime as needed. 21. Atorvastatin 80 mg in the evening. 22. Prednisone 5 mg daily. 23. Metoprolol Tartrate 12.5 mg twice daily. Please note the decreased dose of Metoprolol from 25 mg twice daily to 12.5 mg twice daily. PERTINENT IMAGING: Echocardiogram report, 08/24/2017: Impression: Mild concentric left ventricular hypertrophy. Left ventricular systolic function is the lower limit of normal with an estimated EF of 45 to 50 percent. There are multiple regional wall motion abnormalities. The mid anterolateral and apical inferior wall segments are hypokinetic. The mid inferolateral and apical lateral wall segments are akinetic. The right ventricular chamber size and systolic function are within normal limits. No evidence of . Trace to mild MR, mild to moderate TR. There is evidence of moderate pulmonary hypertension. No pericardial effusion. HISTORY OF PRESENT ILLNESS AND HOSPITAL COURSE: This is a 72-year-old female presenting from [facility]. Past medical history as outlined in the history of present illness on the day admission who recently had neck stabilization surgery of her cervical spine in [place] who presented with chest pain, found to have a troponin I that peaked at 42.6 before downtrending with associated Q-waves on EKG. She was evaluated by Cardiology and felt that this was a completed event and would not benefit from cardiac catheterization. Please see cardiology consultation note from 08/24/2017 for further details. She was treated conservatively with medical management for NSTEMI with Heparin drip, aspirin and Metoprolol, as well as Atorvastatin which was increased to 80 mg in the evening. Her hospital course was complicated by urinary tract infection with klebsiella treated with Ciprofloxacin, ultimately found to be pansensitive. Additionally she was found to have an episode of hypotension that resolved after Prednisone was restarted and Metoprolol was decreased to half her home dose. Her microcytic anemia was thought to be secondary to her rheumatoid arthritis and she received two units of packed red blood cells during the course of her hospital stay with a stable hemoglobin hematocrit during the course of the hospital stay, discharge value 9.8. Her hyponatremia resolved and has remained stable at 133 on the 13 prior to her discharge. Hyponatremia exacerbated in the setting of hyperglycemia. Presenting glucose of 109, normalized with glucose. There were no other complications during the course of the hospital stay. Please refer to the complete medical record for further details. This is a complex hospital stay. REASONS TO RETURN TO THE HOSPITAL: Including, but not limited to recurrent or worsening symptoms including chest pain, shortness of breath, nausea, vomiting, lightheadedness, loss of consciousness, near loss of consciousness, bleeding from any source, and inability to obtain or tolerate medications were discussed with the patient. Greater than 60 minutes were spent on this discharge. [id number]/[facility] #: [id number] PHUC
[2017-08-31 13:32] VITALS: BP 94/52
== END 2017-08-31 13:55 | DRG 281 ==
LOC: ED 10:47 → ICU 17:45 → MEDTELE 08-27 23:19
PROVIDERS: ADMIT Hospitalist; ATTEND Internal Medicine
PROC: 30233N1 Transfusion of Nonautologous Red Blood Cells into Peripheral Vein, Percutaneous Approach (ICD-10-PCS; principal; 2017-08-25)
DX: I21.4 Non-ST elevation (NSTEMI) myocardial infarction (principal); N39.0 Urinary tract infection, site not specified; L89.302 Pressure ulcer of unspecified buttock, stage 2; I95.9 Hypotension, unspecified; I11.0 Hypertensive heart disease with heart failure; E87.1 Hypo-osmolality and hyponatremia; I27.20 Pulmonary hypertension, unspecified; I50.9 Heart failure, unspecified; I25.119 Atherosclerotic heart disease of native coronary artery with unspecified angina pectoris; B96.1 Klebsiella pneumoniae [K. pneumoniae] as the cause of diseases classified elsewhere; D50.9 Iron deficiency anemia, unspecified; M06.9 Rheumatoid arthritis, unspecified; J44.9 Chronic obstructive pulmonary disease, unspecified; E03.9 Hypothyroidism, unspecified; E78.5 Hyperlipidemia, unspecified; Z86.718 Personal history of other venous thrombosis and embolism; K21.9 Gastro-esophageal reflux disease without esophagitis; R31.9 Hematuria, unspecified; I73.9 Peripheral vascular disease, unspecified; Z79.1 Long term (current) use of non-steroidal anti-inflammatories (NSAID); Z79.82 Long term (current) use of aspirin; Z79.891 Long term (current) use of opiate analgesic; Z79.899 Other long term (current) drug therapy; Z88.8 Allergy status to other drugs, medicaments and biological substances; Z91.040 Latex allergy status; Z80.0 Family history of malignant neoplasm of digestive organs; Z81.8 Family history of other mental and behavioral disorders; Z87.891 Personal history of nicotine dependence; I25.10 Atherosclerotic heart disease of native coronary artery without angina pectoris; Z95.5 Presence of coronary angioplasty implant and graft
CPT/HCPCS: 36415; 71045; 76705; 80048; 80053; 81003; 81015; 82550; 82553; 82728; 83540; 83550; 83605; 83735; 84100; 84484; 84520; 85014; 85018; 85025; 85027; 85610; 85730; 86140; 86850; 86900; 86901; 86922; 87040; 87077; 87086; 87186; 87502; 87641; 93005; 93306; 99285; A9270-GY; J0744; J1644; J1650; J1940; J2270; J2405; J7512; P9040

== ENCOUNTER 2017-09-05 19:11 | Inpatient (IN) | payer MEDICARE, MEDICAID ==
--- NOTE | 2017-09-05 20:34 | RAD ---
HISTORY: Chest pain COMPARISONS: August 30, 2017 VIEWS: 1: frontal portable view of the chest at 8:19 PM FINDINGS: LINES AND TUBES: None. CARDIOMEDIASTINAL SILHOUETTE: The cardiomediastinal silhouette is normal for portable technique. PLEURA: The costophrenic angles are sharp. No pleural abnormalities are noted. LUNG PARENCHYMA: There is persistent patchy alveolar opacification of the lung bases bilaterally, greater on the left on the right. ABDOMEN: The upper abdomen is clear. There is no subphrenic gas. BONES AND SOFT TISSUES: Degenerative changes are noted of the shoulders. There is post surgical change of the spine. There is a scoliotic curvature of the spine. IMPRESSION: LEFT BASILAR CONSOLIDATION WITH RIGHT BASILAR ATELECTASIS VERSUS CONSOLIDATION.
[2017-09-05] MEDS ORDERED: Levofloxacin 750 MG IVPREMIX(* 750 MG/150 ML BAG IVPB ONE (20:57)
[2017-09-05 22:06] LABS: ABS Basophils 0.1 10^3/ul (0-0.2); ABS Eosinophils 0.2 10^3/ul (0-0.6); ABS Monocytes 0.7 10^3/ul (0-0.8); ABS Nucleated RBC 0 10^3/ul; Eosinophil % 2.3 % (0-6); Hematocrit 32 % (35-47); Hemoglobin 10.3 g/dl (12.0-16.0); Lymphocyte % 12.1 % (25-47); Mean Corpuscular HGB Conc 32 g/dl (31-36); Mean Corpuscular Hemoglobin 25 pg (27-31); Mean Corpuscular Volume 76 fL (80-97); Mean Platelet Volume 9 um3 (7.4-10.4); Nucleated Red Blood Cells % 0; Platelet Count 277 10^3/ul (150-450); Red Blood Count 4.21 10^6/ul (4.0-5.4); Red Cell Distribution Width 19 % (10.5-15); White Blood Count 7.8 10^3/ul (3.5-10.8)
[2017-09-05 22:15] LABS: EGFR Non-African American 120.6 (>60)
[2017-09-05 22:16] LABS: INR 1.02 (0.77-1.02)
[2017-09-05] MEDS ORDERED: Acetaminophen TAB* 325 MG PO PRN (23:08)
[2017-09-06] LABS: EGFR Non-African American 112.8 (>60)
[2017-09-06] MEDS ORDERED: Calcium Carbonate CHEW TAB* 500 MG (TUMS) PO PRN (02:46)
[2017-09-06] MEDS ORDERED: fentaNYL PATCH 50 MCG/HR TRANSDERM SCH (03:00)
[2017-09-06] MEDS: oxyCODONE TAB* 5 MG TAB PO PRN ×6 (03:01→22:05)
--- NOTE | 2017-09-06 03:35 | HP ---
H&P (Free Text) History and Physical: PCP: Samina Fuller MD Date/Time: 09/06/2017 0015 CC: chest pain HPI: Mrs Parks is a 72F HX NSTEMI 08/24/2017 who presents tonight reporting R inferior chest pain worse with deep inspiration, laying flat, or sitting up at 90 decrees. Sitting reclined improves the pain. This has been associated with subjective F/C, night sweats x2 nights, light-headedness, mild palpitations, but denies significant cough/sputum production, congestion, N/V/D, rash, or other issues. PMedHx CAD/NSTEMI 08/24/2017 PAOD COPD CHF DVT rheumatoid arthritis HTN HLD hypothyroidism GERD depression/anxiety Ambulatory Orders Nursing to reconcile. Folic Acid TAB* [Folvite TAB*] 1 mg PO QAM 01/04/13 BuPROPion XL* [Bupropion XL*] 300 mg PO QAM 04/11/15 Levothyroxine TAB* [Synthroid 75 MCG TAB*] 75 mcg PO QPM 04/11/15 Gabapentin CAP(*) [Neurontin 300 CAP(*)] 300 mg PO QID 05/07/15 oxyCODONE TAB* [Roxycodone TAB 5 mg*] 5 mg PO DAILY 05/07/15 Aspirin EC Low Dose* [Ecotrin EC Low Dose 81 MG*] 81 mg PO DAILY #0 06/14/17 Potassium Chlor TAB* [Potassium Chlor TAB 20 MEQ*] 20 meq PO DAILY 06/14/17 fentaNYL PATCH 50 MCG/HR* [Duragesic PATCH 50 Mcg/Hr*] 50 mcg TRANSDERM Q72H Docusate CAP* [Colace Cap*] 100 mg PO BID 06/15/17 Omeprazole CAP* [Prilosec CAP* 20 MG] 20 mg PO QAM 06/15/17 Acetaminophen [Acetaminophen Extra Stren] 1,000 mg PO Q8H MDD 3 grams 08/24/17 Calcium Carbonate CHEW TAB* [Tums*] 1,000 mg PO Q4H PRN 08/24/17 Glycerin ADULT SUPP* 1 supp HI QAM PRN 08/24/17 Magnesium Hydroxide LIQ* [Milk of Magnesia LIQ*] 30 ml PO QPM PRN 08/24/17 Melatonin (NF) 3 mg PO BEDTIME 08/24/17 Multivitamins/Minerals TAB* [Theragran/minerals TAB*] 1 tab PO DAILY 08/24/17 Ondansetron TAB* [Zofran 4 MG Tab*] 4 mg PO Q6H PRN 08/24/17 Senna TAB* [Senokot TAB*] 2 tab PO BEDTIME 08/24/17 oxyCODONE TAB* [Roxycodone TAB 5 mg*] 5 mg PO .Q3H PRN 08/24/17 tiZANidine TAB* [Zanaflex TAB*] 2 mg PO TID 08/24/17 predniSONE TAB* [Deltasone TAB*] 5 mg PO DAILY tab 08/30/17 Atorvastatin* [Lipitor 80 MG*] 80 mg PO BEDTIME tab 08/31/17 Metoprolol Tartrate TAB* [Lopressor TAB*] 12.5 mg PO BID tab 08/31/17 Allergies Cephalosporins Allergy (Verified 07/17/17 09:30) Abdominal Pain Latex Allergy (Verified 07/17/17 09:30) Rash PSurgHx OU cataract extractions C-spine fusion colectomy hysterectomy bunionectomy SocHx: FamHx: Mother: laryngeal CA; Father: suicide ROS: as above, otherwise reviewed and all were negative vitals: Vital Signs Temp 37.3 C 09/06/17 02:19 Pulse 98 09/06/17 02:19 Resp 16 09/06/17 03:01 BP 135/59 09/06/17 02:19 Pulse Ox 96 09/06/17 02:19 Intake & Output 09/05/17 09/05/17 09/06/17 11:59 23:59 11:59 Intake Total 150 Balance 150 Weight 49.895 kg Intake: IV Fluids 150 Constitutional: NAD, normally developed, well-nourished elderly white female HEENM: atraumatic; sclera/conjunctiva: anicteric/clear; hearing: clinically intact; oropharynx: clear, mucosa tacky Neck: soft tissue: non-tender; thyroid: normal Pulmonary: mild bibasilar crackles, fair aeration, no accessory muscle use CV: RR/RR, normal S1S2, no carotid bruit, no jugular venous distention, 2+ B DP/ PT, no edema Abdominal: soft, non-distended, non-tender, no rebound/guarding/rigidity, normoactive bowel sounds, no hepatosplenomegaly or masses, no costovertebral angle tenderness Musculoskeletal: general: grossly intact, no tenderness w/ palpation Integumental: normal appearance and texture of exposed skin Psychiatric orientation: A&O to PPS affect: calm mood: cooperative eye contact: good content: reliable responses: timely insight: fair to good Testing: Lab Results 09/05/17 09/05/17 09/05/17 Range/Units 21:25 21:25 21:25 WBC 7.8 (3.5-10.8) 10^3/ul RBC 4.21 (4.0-5.4) 10^6/ul Hgb 10.3 L (12.0-16.0) g/dl Hct 32 L (35-47) % MCV 76 L (80-97) fL MCH 25 L (27-31) pg MCHC 32 (31-36) g/dl RDW 19 H (10.5-15) % Plt Count 277 (150-450) 10^3/ul MPV 9 (7.4-10.4) um3 Neut % (Auto) 76.0 (38-83) % Lymph % (Auto) 12.1 L (25-47) % [place] % (Auto) 8.3 (1-9) % Eos % (Auto) 2.3 (0-6) % Baso % (Auto) 1.3 (0-2) % Absolute Neuts (auto) 6.0 (1.5-7.7) 10^3/ul Absolute Lymphs (auto) 1.0 (1.0-4.8) 10^3/ul Absolute Monos (auto) 0.7 (0-0.8) 10^3/ul Absolute Eos (auto) 0.2 (0-0.6) 10^3/ul Absolute Basos (auto) 0.1 (0-0.2) 10^3/ul Absolute Nucleated RBC 0 10^3/ul Nucleated RBC % 0 INR (Anticoag Therapy) (0.77-1.02) APTT (26.0-36.3) seconds Sodium 136 (133-145) mmol/L Potassium 4.3 (3.5-5.0) mmol/L Chloride 103 (101-111) mmol/L Carbon Dioxide 28 (22-32) mmol/L Anion Gap 5 (2-11) mmol/L BUN 15 (6-24) mg/dL Creatinine 0.50 L (0.51-0.95) mg/dL Est GFR ( Amer) 155.1 (>60) Est GFR (Non-Af Amer) 120.6 (>60) BUN/Creatinine Ratio 30.0 H (8-20) Glucose 70 (70-100) mg/dL Lactic Acid (0.5-2.0) mmol/L Calcium 8.8 (8.6-10.3) mg/dL Total Bilirubin 0.60 (0.2-1.0) mg/dL AST 29 (13-39) U/L ALT 11 (7-52) U/L Alkaline Phosphatase 132 H (34-104) U/L Troponin I 0.19 H* (<0.04) ng/mL B-Natriuretic Peptide 688 H ( - 100) pg/mL Total Protein 5.9 L (6.4-8.9) g/dL Albumin 2.3 L (3.2-5.2) g/dL Globulin 3.6 (2-4) g/dL Albumin/Globulin Ratio 0.6 L (1-3) Influenza A (Rapid) (Negative) Influenza B (Rapid) (Negative) 09/05/17 09/05/17 09/05/17 Range/Units 21:25 21:25 23:35 WBC (3.5-10.8) 10^3/ul RBC (4.0-5.4) 10^6/ul Hgb (12.0-16.0) g/dl Hct (35-47) % MCV (80-97) fL MCH (27-31) pg MCHC (31-36) g/dl RDW (10.5-15) % Plt Count (150-450) 10^3/ul MPV (7.4-10.4) um3 Neut % (Auto) (38-83) % Lymph % (Auto) (25-47) % [place] % (Auto) (1-9) % Eos % (Auto) (0-6) % Baso % (Auto) (0-2) % Absolute Neuts (auto) (1.5-7.7) 10^3/ul Absolute Lymphs (auto) (1.0-4.8) 10^3/ul Absolute Monos (auto) (0-0.8) 10^3/ul Absolute Eos (auto) (0-0.6) 10^3/ul Absolute Basos (auto) (0-0.2) 10^3/ul Absolute Nucleated RBC 10^3/ul Nucleated RBC % INR (Anticoag Therapy) 1.02 (0.77-1.02) APTT (26.0-36.3) seconds Sodium (133-145) mmol/L Potassium (3.5-5.0) mmol/L Chloride (101-111) mmol/L Carbon Dioxide (22-32) mmol/L Anion Gap (2-11) mmol/L BUN 15 (6-24) mg/dL Creatinine 0.53 (0.51-0.95) mg/dL Est GFR ( Amer) 145.0 (>60) Est GFR (Non-Af Amer) 112.8 (>60) BUN/Creatinine Ratio (8-20) Glucose (70-100) mg/dL Lactic Acid 1.2 (0.5-2.0) mmol/L Calcium (8.6-10.3) mg/dL Total Bilirubin (0.2-1.0) mg/dL AST (13-39) U/L ALT (7-52) U/L Alkaline Phosphatase (34-104) U/L Troponin I 0.19 H* (<0.04) ng/mL B-Natriuretic Peptide ( - 100) pg/mL Total Protein (6.4-8.9) g/dL Albumin (3.2-5.2) g/dL Globulin (2-4) g/dL Albumin/Globulin Ratio (1-3) Influenza A (Rapid) (Negative) Influenza B (Rapid) (Negative) 09/05/17 09/06/17 Range/Units 23:35 02:46 WBC (3.5-10.8) 10^3/ul RBC (4.0-5.4) 10^6/ul Hgb (12.0-16.0) g/dl Hct (35-47) % MCV (80-97) fL MCH (27-31) pg MCHC (31-36) g/dl RDW (10.5-15) % Plt Count (150-450) 10^3/ul MPV (7.4-10.4) um3 Neut % (Auto) (38-83) % Lymph % (Auto) (25-47) % [place] % (Auto) (1-9) % Eos % (Auto) (0-6) % Baso % (Auto) (0-2) % Absolute Neuts (auto) (1.5-7.7) 10^3/ul Absolute Lymphs (auto) (1.0-4.8) 10^3/ul Absolute Monos (auto) (0-0.8) 10^3/ul Absolute Eos (auto) (0-0.6) 10^3/ul Absolute Basos (auto) (0-0.2) 10^3/ul Absolute Nucleated RBC 10^3/ul Nucleated RBC % INR (Anticoag Therapy) (0.77-1.02) APTT 30.0 (26.0-36.3) seconds Sodium (133-145) mmol/L Potassium (3.5-5.0) mmol/L Chloride (101-111) mmol/L Carbon Dioxide (22-32) mmol/L Anion Gap (2-11) mmol/L BUN (6-24) mg/dL Creatinine (0.51-0.95) mg/dL Est GFR ( Amer) (>60) Est GFR (Non-Af Amer) (>60) BUN/Creatinine Ratio (8-20) Glucose (70-100) mg/dL Lactic Acid (0.5-2.0) mmol/L Calcium (8.6-10.3) mg/dL Total Bilirubin (0.2-1.0) mg/dL AST (13-39) U/L ALT (7-52) U/L Alkaline Phosphatase (34-104) U/L Troponin I (<0.04) ng/mL B-Natriuretic Peptide ( - 100) pg/mL Total Protein (6.4-8.9) g/dL Albumin (3.2-5.2) g/dL Globulin (2-4) g/dL Albumin/Globulin Ratio (1-3) Influenza A (Rapid) Negative (Negative) Influenza B (Rapid) Negative (Negative) ECG, personally reviewed: NSR rate 98, inferior Q-waves, no ischemia CXR, personally reviewed: IMPRESSION: LEFT BASILAR CONSOLIDATION WITH RIGHT BASILAR ATELECTASIS VERSUS CONSOLIDATION. Impression: 72F HX recent NSTEMI presents with L ? R basilar pneumonia w/ elevated troponin DIAGNOSIS & PLAN Primary L ? R basilar pneumonia : IVFs : IV levofloxacin : blood & sputum CXs : urine S pneumo & Legionella antigens : check rapid influenza : supplemental oxygen : supportive care elevated troponin : suspect demand ischemia vs less likely residual from recent NSTEMI : telemetry, trend Secondary CAD/NSTEMI 08/24/2017 : continue aspirin PAOD/HLD : continue atorvastatin COPD : albuterol nebs PRN CHF : daily weights : strict I&Os rheumatoid arthritis : continue prednisone HX DVT : SCDs & heparin SQ HTN : continue metoprolol hypothyroidism : continue levothyroxine GERD : continue omeprazole depression/anxiety : continue bupropion XL Admission Rational: inpatient for IV ABX & IVFs for L basilar pneumonia; inappropriate for outpatient setting 2nd high risk of morbidity/mortality DVTp: SCDs & heparin SQ Code Status: full HCP: daughters, Mackenzie & Nela
[2017-09-06 05:41] LABS: ABS Basophils 0.1 10^3/ul (0-0.2); ABS Eosinophils 0.1 10^3/ul (0-0.6); ABS Lymphocytes 0.6 10^3/ul (1.0-4.8); ABS Monocytes 0.6 10^3/ul (0-0.8); ABS Neutrophils 7.2 10^3/ul (1.5-7.7); ABS Nucleated RBC 0 10^3/ul; Eosinophil % 1.4 % (0-6); Hematocrit 31 % (35-47); Hemoglobin 10.1 g/dl (12.0-16.0); Lymphocyte % 7.4 % (25-47); Mean Corpuscular HGB Conc 32 g/dl (31-36); Mean Corpuscular Hemoglobin 24 pg (27-31); Mean Corpuscular Volume 76 fL (80-97); Mean Platelet Volume 8 um3 (7.4-10.4); Nucleated Red Blood Cells % 0; Platelet Count 274 10^3/ul (150-450); Red Blood Count 4.12 10^6/ul (4.0-5.4); Red Cell Distribution Width 19 % (10.5-15); White Blood Count 8.7 10^3/ul (3.5-10.8)
[2017-09-06 05:48] LABS: EGFR Non-African American 126.4 (>60)
[2017-09-06] MEDS: Heparin VIAL(*) 5000 UNITS/ML VIAL (FIVE THOUSAND) SUBCUT SCH ×3 (05:53→22:05)
[2017-09-06] MEDS: Levothyroxine TAB* 75 MCG TAB PO SCH (05:53)
[2017-09-06] MEDS: fentaNYL Patch Check Q Shift 1 NOTE SCH ×2 (06:39→18:59)
[2017-09-06] MEDS: predniSONE TAB* 5 MG PO SCH (09:31)
[2017-09-06] MEDS: Docusate CAP* 100 MG PO SCH ×2 (09:31→20:33)
[2017-09-06] MEDS: tiZANidine TAB* 2 MG PO SCH ×3 (09:31→20:33)
[2017-09-06] MEDS: Omeprazole CAP* 20 MG PO SCH (09:32)
[2017-09-06] MEDS: Gabapentin CAP(*) 300 MG PO SCH ×4 (09:32→20:33)
[2017-09-06] MEDS: Folic Acid TAB* 1 MG PO SCH (09:32)
[2017-09-06] MEDS: Aspirin EC Low Dose* 81 MG TAB.EC PO SCH (09:32)
[2017-09-06] MEDS: Metoprolol Tartrate TAB* 25 MG PO SCH ×2 (09:32→20:33)
[2017-09-06] MEDS: Potassium Chlor TAB* 20 MEQ TAB.ER PO SCH (09:44)
--- NOTE | 2017-09-06 11:27 | ED ---
Kashif Sandoval Julia, scribed for Usama Morgan MD on 09/05/17 at 1928 . HPI Chest Pain - HPI Summary HPI Summary: This patient is a 72 year old F presenting to [facility] accompanied by daughter ( health proxy) with a chief complaint of midsternal CP and chest pressure on R side since 12:00 today. Patient reports lightheadedness and intermittent diaphoresis. Patient denies nausea. The patient rates the pain 8/10 in severity. Symptoms aggravated by palpation. Symptoms alleviated by nothing. Patient states that the pain is worsened by breath but pressure remains unchanged. Patient was given ASA by EMS. - History of Current Complaint Chief Complaint: EDChestPainROMI Time Seen by Provider: 09/05/17 19:19 Hx Obtained From: Patient, Medical Records Onset/Duration: Started Hours Ago Time of Onset: 12:00 Timing: Constant Pain Intensity: 8 Pain Scale Used: 0-10 Numeric Chest Pain Location: Mid Sternal, Right Anterior Character: Pressure/Squeezing Aggravating Factor(s): Deep Breaths, Other: - palpations Alleviating Factor(s): Nothing Associated Signs and Symptoms: Positive: Other: - lightheadness and intermittent diaphoresis. - Additional Pertinent History Primary Care Physician: [id number] - Allergy/Home Medications Allergies/Adverse Reactions: Allergies Allergy/AdvReac Type Severity Reaction Status Date / Time Cephalosporins Allergy Abdominal Verified 07/17/17 09:30 Pain Latex Allergy Rash Verified 07/17/17 09:30 PMH/Surg Hx/FS Hx/Imm Hx Endocrine/Hematology History: Reports: Hx Anticoagulant Therapy - heparin for DVT prophylaxis, Hx Thyroid Disease - hypothyroid, Hx Anemia Denies: Hx Diabetes, Hx Systemic Lupus Erythematosus Cardiovascular History: Reports: Hx Angina, Hx Angioplasty, Hx Congestive Heart Failure, Hx Coronary Artery Disease - stent placed, Hx Hypercholesterolemia, Hx Hypertension, Hx Myocardial Infarction, Other Cardiovascular Problems/Disorders - DR. DUNLAP Denies: Hx Pacemaker/ICD, Hx Valvular Heart Disease Respiratory History: Reports: Hx Chronic Obstructive Pulmonary Disease (COPD), Other Respiratory Problems/Disorders - OCCASIONALLY DIFFICULTY BREATHING- PRN PROVENTIL- STATES HELPS Denies: Hx Asthma, Hx Lung Cancer, Hx Pneumonia, Hx Seasonal Allergies, Hx Sleep Apnea GI History: Reports: Hx Gall Bladder Disease - cholecystectomy, Hx Gastroesophageal Reflux Disease - ON MEDICATION FOR, Other GI Disorders - colitis History: Reports: Hx Kidney Infection, Hx Kidney Stones Denies: Hx Dialysis, Hx Renal Disease Musculoskeletal History: Reports: Hx Arthritis, Hx Rheumatoid Arthritis, Hx Back Problems, Hx Fibromyalgia, Hx Osteoporosis, Other Musculoskeletal History - herniated disc back T5 and cervical area Sensory History: Reports: Hx Cataracts, Hx Contacts or Glasses - Reading glasses Denies: Hx Glaucoma, Hx Hearing Aid Opthamlomology History: Reports: Hx Cataracts, Hx Contacts or Glasses - Reading glasses Denies: Hx Glaucoma Neurological History: Reports: Hx Migraine - RARELY, Hx Seizures Denies: Hx Nerve Disease, Hx Spinal Cord Injury, Hx Transient Ischemic Attacks (TIA) Psychiatric History: Reports: Hx Anxiety - ON MEDICATION FOR, Hx Depression - ON MEDICATION FOR Denies: Hx Panic Disorder - Surgical History Surgery Procedure, Year, and Place: Cardiac stent; right hand surgery; left foot surgery; neck surgery, cholecystectomy, hysterectomy, emergency bowel block (>20 years ago) Hx Anesthesia Reactions: No Infectious Disease History: Yes Infectious Disease History: Reports: Hx of Known/Suspected MRSA Denies: Traveled Outside the [place] in Last 30 Days - Family History Known Family History: Positive: Other - [place]. cancer. TIA - Social History Alcohol Use: None Hx Substance Use: No Substance Use Type: Reports: None Hx Tobacco Use: Yes - not currently Smoking Status (MU): Former Smoker Type: Cigarettes Amount Used/How Often: 1 PPD X 45 YEARS Length of Time of Smoking/Using Tobacco: 48 years Have You Smoked in the Last Year: No Review of Systems Positive: Skin Diaphoresis Positive: Chest Pain - and pressure Negative: Nausea Neurological: Other - lightheaded All Other Systems Reviewed And Are Negative: Yes Physical Exam - Summary Physical Exam Summary: Appearance: The patient is well-nourished in no acute distress and in no acute pain. Skin: The skin is warm and dry and skin color reflects adequate perfusion. HEENT: The head is normocephalic and atraumatic. The pupils are equal and reactive. The conjunctivae are clear and without drainage. Nares are patent and without drainage. Mouth reveals moist mucous membranes and the throat is without erythema and exudate. The external ears are intact. The ear canals are patent and without drainage. The tympanic membranes are intact. Neck: the neck is supple with full range of motion and non-tender. There are no carotid bruits. There is no neck vein distension. Respiratory: Chest has mild peristernal tenderness. Lungs are clear to auscultation and breath sounds are symmetrical and equal. Patient is mildly tachypnic. Cardiovascular: Heart is regular rate and rhythm. There is no murmur or rub auscultated. There is no peripheral edema and pulses are symmetrical and equal. Abdomen: The abdomen is soft and non-tender. There are normal bowel sounds heard in all four quadrants and there is no organomegaly palpated. Musculoskeletal: There is no back tenderness noted. Extremities are non-tender with full range of motion. There is good capillary refill. There is no peripheral edema or calf tenderness elicited. Neurological: Patient is alert and oriented to person, place and time. The patient has symmetrical motor strength in all four extremities. Cranial nerves are grossly intact. Deep tendon reflexes are symmetrical and equal in all four extremities. Psychiatric: The patient has an anxious affect. Triage Information Reviewed: Yes Vital Signs On Initial Exam: Initial Vitals Temp Pulse Resp BP Pulse Ox 99.0 F 95 15 142/82 100 09/05/17 19:19 09/05/17 19:19 09/05/17 19:19 09/05/17 19:19 09/05/17 19:19 Vital Signs Reviewed: Yes Diagnostics - Vital Signs Vital Signs Temp Pulse Resp BP Pulse Ox 09/05/17 19:19 99.0 F 95 15 142/82 100 - Laboratory Lab Results: Lab Results 09/05/17 09/05/17 09/05/17 Range/Units 21:25 21:25 21:25 WBC 7.8 (3.5-10.8) 10^3/ul RBC 4.21 (4.0-5.4) 10^6/ul Hgb 10.3 L (12.0-16.0) g/dl Hct 32 L (35-47) % MCV 76 L (80-97) fL MCH 25 L (27-31) pg MCHC 32 (31-36) g/dl RDW 19 H (10.5-15) % Plt Count 277 (150-450) 10^3/ul MPV 9 (7.4-10.4) um3 Neut % (Auto) 76.0 (38-83) % Lymph % (Auto) 12.1 L (25-47) % [place] % (Auto) 8.3 (1-9) % Eos % (Auto) 2.3 (0-6) % Baso % (Auto) 1.3 (0-2) % Absolute Neuts (auto) 6.0 (1.5-7.7) 10^3/ul Absolute Lymphs (auto) 1.0 (1.0-4.8) 10^3/ul Absolute Monos (auto) 0.7 (0-0.8) 10^3/ul Absolute Eos (auto) 0.2 (0-0.6) 10^3/ul Absolute Basos (auto) 0.1 (0-0.2) 10^3/ul Absolute Nucleated RBC 0 10^3/ul Nucleated RBC % 0 INR (Anticoag Therapy) (0.77-1.02) APTT (26.0-36.3) seconds Sodium 136 (133-145) mmol/L Potassium 4.3 (3.5-5.0) mmol/L Chloride 103 (101-111) mmol/L Carbon Dioxide 28 (22-32) mmol/L Anion Gap 5 (2-11) mmol/L BUN 15 (6-24) mg/dL Creatinine 0.50 L (0.51-0.95) mg/dL Est GFR ( Amer) 155.1 (>60) Est GFR (Non-Af Amer) 120.6 (>60) BUN/Creatinine Ratio 30.0 H (8-20) Glucose 70 (70-100) mg/dL Lactic Acid (0.5-2.0) mmol/L Calcium 8.8 (8.6-10.3) mg/dL Total Bilirubin 0.60 (0.2-1.0) mg/dL AST 29 (13-39) U/L ALT 11 (7-52) U/L Alkaline Phosphatase 132 H (34-104) U/L Troponin I 0.19 H* (<0.04) ng/mL B-Natriuretic Peptide 688 H ( - 100) pg/mL Total Protein 5.9 L (6.4-8.9) g/dL Albumin 2.3 L (3.2-5.2) g/dL Globulin 3.6 (2-4) g/dL Albumin/Globulin Ratio 0.6 L (1-3) 01/21/18 01/21/18 01/21/18 Range/Units 21:25 21:25 23:35 WBC (3.5-10.8) 10^3/ul RBC (4.0-5.4) 10^6/ul Hgb (12.0-16.0) g/dl Hct (35-47) % MCV (80-97) fL MCH (27-31) pg MCHC (31-36) g/dl RDW (10.5-15) % Plt Count (150-450) 10^3/ul MPV (7.4-10.4) um3 Neut % (Auto) (38-83) % Lymph % (Auto) (25-47) % [place] % (Auto) (1-9) % Eos % (Auto) (0-6) % Baso % (Auto) (0-2) % Absolute Neuts (auto) (1.5-7.7) 10^3/ul Absolute Lymphs (auto) (1.0-4.8) 10^3/ul Absolute Monos (auto) (0-0.8) 10^3/ul Absolute Eos (auto) (0-0.6) 10^3/ul Absolute Basos (auto) (0-0.2) 10^3/ul Absolute Nucleated RBC 10^3/ul Nucleated RBC % INR (Anticoag Therapy) 1.02 (0.77-1.02) APTT (26.0-36.3) seconds Sodium (133-145) mmol/L Potassium (3.5-5.0) mmol/L Chloride (101-111) mmol/L Carbon Dioxide (22-32) mmol/L Anion Gap (2-11) mmol/L BUN 15 (6-24) mg/dL Creatinine 0.53 (0.51-0.95) mg/dL Est GFR ( Amer) 145.0 (>60) Est GFR (Non-Af Amer) 112.8 (>60) BUN/Creatinine Ratio (8-20) Glucose (70-100) mg/dL Lactic Acid 1.2 (0.5-2.0) mmol/L Calcium (8.6-10.3) mg/dL Total Bilirubin (0.2-1.0) mg/dL AST (13-39) U/L ALT (7-52) U/L Alkaline Phosphatase (34-104) U/L Troponin I 0.19 H* (<0.04) ng/mL B-Natriuretic Peptide ( - 100) pg/mL Total Protein (6.4-8.9) g/dL Albumin (3.2-5.2) g/dL Globulin (2-4) g/dL Albumin/Globulin Ratio (1-3) //18 Range/Units 23:35 WBC (3.5-10.8) 10^3/ul RBC (4.0-5.4) 10^6/ul Hgb (12.0-16.0) g/dl Hct (35-47) % MCV (80-97) fL MCH (27-31) pg MCHC (31-36) g/dl RDW (10.5-15) % Plt Count (150-450) 10^3/ul MPV (7.4-10.4) um3 Neut % (Auto) (38-83) % Lymph % (Auto) (25-47) % [place] % (Auto) (1-9) % Eos % (Auto) (0-6) % Baso % (Auto) (0-2) % Absolute Neuts (auto) (1.5-7.7) 10^3/ul Absolute Lymphs (auto) (1.0-4.8) 10^3/ul Absolute Monos (auto) (0-0.8) 10^3/ul Absolute Eos (auto) (0-0.6) 10^3/ul Absolute Basos (auto) (0-0.2) 10^3/ul Absolute Nucleated RBC 10^3/ul Nucleated RBC % INR (Anticoag Therapy) (0.77-1.02) APTT 30.0 (26.0-36.3) seconds Sodium (133-145) mmol/L Potassium (3.5-5.0) mmol/L Chloride (101-111) mmol/L Carbon Dioxide (22-32) mmol/L Anion Gap (2-11) mmol/L BUN (6-24) mg/dL Creatinine (0.51-0.95) mg/dL Est GFR ( Amer) (>60) Est GFR (Non-Af Amer) (>60) BUN/Creatinine Ratio (8-20) Glucose (70-100) mg/dL Lactic Acid (0.5-2.0) mmol/L Calcium (8.6-10.3) mg/dL Total Bilirubin (0.2-1.0) mg/dL AST (13-39) U/L ALT (7-52) U/L Alkaline Phosphatase (34-104) U/L Troponin I (<0.04) ng/mL B-Natriuretic Peptide ( - 100) pg/mL Total Protein (6.4-8.9) g/dL Albumin (3.2-5.2) g/dL Globulin (2-4) g/dL Albumin/Globulin Ratio (1-3) Result Diagrams: 09/06/17 05:16 09/06/17 05:16 Lab Statement: Any lab studies that have been ordered have been reviewed, and results considered in the medical decision making process. - Radiology CXR Radiology Interpretation Completed By: Radiologist - LEFT BASILAR CONSOLIDATION WITH RIGHT BASILAR ATELECTASIS VERSUS CONSOLIDATION. ED Physician has reviewed this report. - EKG 19:15 Cardiac Rate: NL EKG Rhythm: Sinus Rhythm - at 95 BPM EKG Interpretation: L axis deviation, old infarct EKG Comparison: No Significant Change - from 08/29/17 Chest Pain Course/Dx - Course Course Of Treatment: Ms. Parks had a recent NSTEMI and went home. She now returns with significant right sided chest pain. She was found to have an infiltrate on CXR and a mild leukocytosis and fluids and antibiotics were ordered for her. Her ecg was unchanged but her trop returned at 0.2 She should be down to zero now from her previous NSTEMI and I don't know what her baseline is. The hospitalist is admitting her. - Diagnoses Provider Diagnoses: Pneumonia, Chest pain - Provider Notifications Discussed Care Of Patient With: Dr. Price - Critical Care Time Critical Care Time: 30-74 min Discharge - Discharge Plan Condition: Stable Disposition: ADMITTED TO [facility] The documentation as recorded by the Kashif erazo Julia accurately reflects the service I personally performed and the decisions made by me, Usama Morgan MD.
[2017-09-06] MEDS: BuPROPion XL* 300 MG TAB.XL PO SCH (14:25)
--- NOTE | 2017-09-06 18:54 | PN ---
Subjective Date of Service: 09/06/17 Interval History: Pt seen and examined. sharp right pain near rib. B[place] and often at rest, for most part progressive since her medically treated, late presenting [place] two weeks ago 08/24/17. Evidence of old Q waves inferiorly prior to this event. Last [facility] November 2015 LM 20-30%, Circ 55%, 1st Diag 35%. "everything hurts". 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 Pedroza). Hoping to get home from [facility] where she had home aides in AM and PM 5 days a week to help her eat. Being treated for potential pna but suspect cardiogenic etiologies likely a major factor. Repeat ECHO ordered. Tmax 99.2 procalcitonin 0.2 BNP 688 Objective Active Medications: Acetaminophen (Tylenol Tab*) 650 mg PO Q6H PRN PRN Reason: FEVER/PAIN Last Admin: 09/06/17 01:05 Dose: 650 mg Aspirin (Aspirin Ec Low Dose*) 81 mg PO DAILY [facility] Last Admin: 09/06/17 09:32 Dose: 81 mg Atorvastatin Calcium (Lipitor*) 80 mg PO BEDTIME [facility] Bupropion HCl (Bupropion Xl*) 300 mg PO QAM [facility] Last Admin: 09/06/17 14:25 Dose: 300 mg Calcium Carbonate (Tums*) 1,000 mg PO Q4H PRN PRN Reason: INDIGESTION Docusate Sodium (Colace Cap*) 100 mg PO BID [facility] Last Admin: 09/06/17 09:31 Dose: 100 mg Fentanyl (Duragesic Patch 50 Mcg/Hr*) 50 mcg TRANSDERM Q72H [facility] Last Admin: 09/06/17 03:01 Dose: 50 mcg Folic Acid (Folvite Tab*) 1 mg PO QAM [facility] Last Admin: 09/06/17 09:32 Dose: 1 mg Gabapentin (Neurontin Cap(*)) 300 mg PO QID [facility] Last Admin: 09/06/17 17:25 Dose: 300 mg Heparin Sodium (Porcine) (Heparin Vial(*)) 5,000 units SUBCUT Q8HR [facility] Last Admin: 09/06/17 14:23 Dose: 5,000 units Levofloxacin/Dextrose (Levaquin 750 Mg Ivpremix(*)) 750 mg in 150 mls @ 100 mls /hr IVPB Q24H [facility] Levothyroxine Sodium (Synthroid Tab*) 75 mcg PO DAILY@0600 [facility] Last Admin: 09/06/17 05:53 Dose: 75 mcg Metoprolol Tartrate (Lopressor Tab*) 12.5 mg PO BID [facility] Last Admin: 09/06/17 09:32 Dose: 12.5 mg Omeprazole (Prilosec Cap*) 20 mg PO QAM [facility] Last Admin: 09/06/17 09:32 Dose: 20 mg Oxycodone HCl (Roxycodone Tab*) 5 mg PO Q3H PRN PRN Reason: PAIN Last Admin: 09/06/17 17:24 Dose: 5 mg Pharmacy Profile Note (Fentanyl Patch Check Q Shift) 1 note N/A 0700,1900 [facility] Last Admin: 09/06/17 06:39 Dose: 1 note Potassium Chloride (Klor Con Er Tab*) 20 meq PO DAILY [facility] Last Admin: 09/06/17 09:44 Dose: 20 meq Prednisone (Deltasone Tab*) 5 mg PO DAILY [facility] Last Admin: 09/06/17 09:31 Dose: 5 mg Senna (Senokot Tab*) 2 tab PO BEDTIME [facility] Tizanidine HCl (Zanaflex Tab*) 2 mg PO TID [facility] Last Admin: 09/06/17 14:24 Dose: 2 mg Vital Signs - 8 hr 09/06/17 09/06/17 09/06/17 11:39 14:24 17:16 Respiratory 18 18 18 Rate 09/06/17 09/06/17 17:24 17:25 Respiratory 18 18 Rate Oxygen Devices in Use Now: None Result Diagrams: 09/06/17 05:16 09/06/17 05:16 Additional Lab and Data: Lab Results 09/05/17 09/05/17 09/05/17 Range/Units 21:25 21:25 21:25 WBC 7.8 (3.5-10.8) 10^3/ul RBC 4.21 (4.0-5.4) 10^6/ul Hgb 10.3 L (12.0-16.0) g/dl Hct 32 L (35-47) % MCV 76 L (80-97) fL MCH 25 L (27-31) pg MCHC 32 (31-36) g/dl RDW 19 H (10.5-15) % Plt Count 277 (150-450) 10^3/ul MPV 9 (7.4-10.4) um3 Neut % (Auto) 76.0 (38-83) % Lymph % (Auto) 12.1 L (25-47) % [place] % (Auto) 8.3 (1-9) % Eos % (Auto) 2.3 (0-6) % Baso % (Auto) 1.3 (0-2) % Absolute Neuts (auto) 6.0 (1.5-7.7) 10^3/ul Absolute Lymphs (auto) 1.0 (1.0-4.8) 10^3/ul Absolute Monos (auto) 0.7 (0-0.8) 10^3/ul Absolute Eos (auto) 0.2 (0-0.6) 10^3/ul Absolute Basos (auto) 0.1 (0-0.2) 10^3/ul Absolute Nucleated RBC 0 10^3/ul Nucleated RBC % 0 INR (Anticoag Therapy) (0.77-1.02) APTT (26.0-36.3) seconds Sodium 136 (133-145) mmol/L Potassium 4.3 (3.5-5.0) mmol/L Chloride 103 (101-111) mmol/L Carbon Dioxide 28 (22-32) mmol/L Anion Gap 5 (2-11) mmol/L BUN 15 (6-24) mg/dL Creatinine 0.50 L (0.51-0.95) mg/dL Est GFR ( Amer) 155.1 (>60) Est GFR (Non-Af Amer) 120.6 (>60) BUN/Creatinine Ratio 30.0 H (8-20) Glucose 70 (70-100) mg/dL Lactic Acid (0.5-2.0) mmol/L Calcium 8.8 (8.6-10.3) mg/dL Total Bilirubin 0.60 (0.2-1.0) mg/dL AST 29 (13-39) U/L ALT 11 (7-52) U/L Alkaline Phosphatase 132 H (34-104) U/L Troponin I 0.19 H* (<0.04) ng/mL B-Natriuretic Peptide 688 H ( - 100) pg/mL Total Protein 5.9 L (6.4-8.9) g/dL Albumin 2.3 L (3.2-5.2) g/dL Globulin 3.6 (2-4) g/dL Albumin/Globulin Ratio 0.6 L (1-3) 09/05/17 09/05/17 09/05/17 Range/Units 21:25 21:25 23:35 WBC (3.5-10.8) 10^3/ul RBC (4.0-5.4) 10^6/ul Hgb (12.0-16.0) g/dl Hct (35-47) % MCV (80-97) fL MCH (27-31) pg MCHC (31-36) g/dl RDW (10.5-15) % Plt Count (150-450) 10^3/ul MPV (7.4-10.4) um3 Neut % (Auto) (38-83) % Lymph % (Auto) (25-47) % [place] % (Auto) (1-9) % Eos % (Auto) (0-6) % Baso % (Auto) (0-2) % Absolute Neuts (auto) (1.5-7.7) 10^3/ul Absolute Lymphs (auto) (1.0-4.8) 10^3/ul Absolute Monos (auto) (0-0.8) 10^3/ul Absolute Eos (auto) (0-0.6) 10^3/ul Absolute Basos (auto) (0-0.2) 10^3/ul Absolute Nucleated RBC 10^3/ul Nucleated RBC % INR (Anticoag Therapy) 1.02 (0.77-1.02) APTT (26.0-36.3) seconds Sodium (133-145) mmol/L Potassium (3.5-5.0) mmol/L Chloride (101-111) mmol/L Carbon Dioxide (22-32) mmol/L Anion Gap (2-11) mmol/L BUN 15 (6-24) mg/dL Creatinine 0.53 (0.51-0.95) mg/dL Est GFR ( Amer) 145.0 (>60) Est GFR (Non-Af Amer) 112.8 (>60) BUN/Creatinine Ratio (8-20) Glucose (70-100) mg/dL Lactic Acid 1.2 (0.5-2.0) mmol/L Calcium (8.6-10.3) mg/dL Total Bilirubin (0.2-1.0) mg/dL AST (13-39) U/L ALT (7-52) U/L Alkaline Phosphatase (34-104) U/L Troponin I 0.19 H* (<0.04) ng/mL B-Natriuretic Peptide ( - 100) pg/mL Total Protein (6.4-8.9) g/dL Albumin (3.2-5.2) g/dL Globulin (2-4) g/dL Albumin/Globulin Ratio (1-3) / Range/Units 23:35 WBC (3.5-10.8) 10^3/ul RBC (4.0-5.4) 10^6/ul Hgb (12.0-16.0) g/dl Hct (35-47) % MCV (80-97) fL MCH (27-31) pg MCHC (31-36) g/dl RDW (10.5-15) % Plt Count (150-450) 10^3/ul MPV (7.4-10.4) um3 Neut % (Auto) (38-83) % Lymph % (Auto) (25-47) % [place] % (Auto) (1-9) % Eos % (Auto) (0-6) % Baso % (Auto) (0-2) % Absolute Neuts (auto) (1.5-7.7) 10^3/ul Absolute Lymphs (auto) (1.0-4.8) 10^3/ul Absolute Monos (auto) (0-0.8) 10^3/ul Absolute Eos (auto) (0-0.6) 10^3/ul Absolute Basos (auto) (0-0.2) 10^3/ul Absolute Nucleated RBC 10^3/ul Nucleated RBC % INR (Anticoag Therapy) (0.77-1.02) APTT 30.0 (26.0-36.3) seconds Sodium (133-145) mmol/L Potassium (3.5-5.0) mmol/L Chloride (101-111) mmol/L Carbon Dioxide (22-32) mmol/L Anion Gap (2-11) mmol/L BUN (6-24) mg/dL Creatinine (0.51-0.95) mg/dL Est GFR ( Amer) (>60) Est GFR (Non-Af Amer) (>60) BUN/Creatinine Ratio (8-20) Glucose (70-100) mg/dL Lactic Acid (0.5-2.0) mmol/L Calcium (8.6-10.3) mg/dL Total Bilirubin (0.2-1.0) mg/dL AST (13-39) U/L ALT (7-52) U/L Alkaline Phosphatase (34-104) U/L Troponin I (<0.04) ng/mL B-Natriuretic Peptide ( - 100) pg/mL Total Protein (6.4-8.9) g/dL Albumin (3.2-5.2) g/dL Globulin (2-4) g/dL Albumin/Globulin Ratio (1-3) Microbiology and Other Data: Microbiology 09/06/17 02:30 Influenza Types A,B Antigen ([facility]I) - Final Nasal Specimen received for Influenza A/B Molecular testing Assess/Plan/Problems-Billing Assessment:
--- NOTE | 2017-09-06 18:55 | PN ---
Hospitalist Progress Note Date of Service: 09/06/17 Pt seen and examined. sharp right pain near rib. [place] and often at rest, for most part progressive since her medically treated, late presenting [place] two weeks ago 08/24/17. Evidence of old Q waves inferiorly prior to this event. Last [facility] November 2015 LM 20-30%, Circ 55%, 1st Diag 35%. "everything hurts". 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 Pedroza). Hoping to get home from [facility] where she had home aides in AM and PM 5 days a week to help her eat. Being treated for potential pna but suspect cardiogenic etiologies likely a major factor. Repeat ECHO ordered. Tmax 99.2 procalcitonin 0.2 BNP 688
[2017-09-06] MEDS: Atorvastatin* 80 MG TAB PO SCH (20:33)
[2017-09-06] MEDS: Senna TAB PO SCH (20:33)
[2017-09-06] MEDS ORDERED: Levofloxacin 750 MG IVPREMIX(* 750 MG/150 ML BAG IVPB SCH (22:00)
[2017-09-07] MEDS: oxyCODONE TAB* 5 MG TAB PO PRN ×5 (01:15→20:52)
[2017-09-07] MEDS: Levothyroxine TAB* 75 MCG TAB PO SCH (05:29)
[2017-09-07] MEDS: Heparin VIAL(*) 5000 UNITS/ML VIAL (FIVE THOUSAND) SUBCUT SCH ×3 (05:30→20:52)
[2017-09-07] MEDS: fentaNYL Patch Check Q Shift 1 NOTE SCH ×2 (06:45→18:59)
[2017-09-07] MEDS: Aspirin EC Low Dose* 81 MG TAB.EC PO SCH (09:45)
[2017-09-07] MEDS: Potassium Chlor TAB* 20 MEQ TAB.ER PO SCH (09:45)
[2017-09-07] MEDS: Gabapentin CAP(*) 300 MG PO SCH ×4 (09:45→20:51)
[2017-09-07] MEDS: Folic Acid TAB* 1 MG PO SCH (09:45)
[2017-09-07] MEDS: Omeprazole CAP* 20 MG PO SCH (09:45)
[2017-09-07] MEDS: tiZANidine TAB* 2 MG PO SCH ×3 (09:45→20:52)
[2017-09-07] MEDS: predniSONE TAB* 5 MG PO SCH (09:46)
[2017-09-07] MEDS: BuPROPion XL* 300 MG TAB.XL PO SCH (09:46)
[2017-09-07] MEDS: Docusate CAP* 100 MG PO SCH ×2 (09:46→20:52)
[2017-09-07] MEDS: Metoprolol Tartrate TAB* 25 MG PO SCH (09:46)
--- NOTE | 2017-09-07 10:24 | ECHO ---
Patient: NAEL JAURE[facility] Rec#: [id number] : 1945 Date: 09/07/2017 Age: 72y Height: 157.48 cm / 62.0 in Weight: 52.62 kg / 116.0 lbs Sex: F BSA: 1.52 Room#: 440 Admit Date#: 09/06/2017 Type: Inpatient Referring: Zaid Flores Reading: Rod Andrews MD Project Controls Scheduler: Salome Coleman RDCS CC: Fernando Fuller MD Transthoracic Echocardiogram Indication: Hypoxic respiratory failure, recent NSTEMI BP: 120/66 HR: 102 Rhythm: Tachycardia Findings History: CAD and NSTEMI 08/24/17, PAOD, COPD, CHF, DVT, RA, HTN, HLD, hypothyroidism, GERD, s/p PCI, former smoker. Technical Comments: The study quality is fair. The study is technically limited due to poor parasternal windows. Completed at 0840. Left Ventricle: The left ventricular chamber size is decreased. Mild concentric left ventricular hypertrophy is observed. There are multiple regional wall motion abnormalities. Left ventricular systolic function is at the lower limits of normal. The estimated ejection fraction is 50-55%. Abnormal left ventricular diastolic function is observed. There is an E to A reversal in the mitral valve flow pattern suggestive of diastolic dysfunction. The apical lateral, and apical inferior wall segments are hypokinetic (score 2). Overall wallmotion score index is 2.00 Left Atrium: The left atrial chamber size is normal. Right Ventricle: Moderator Band present. The right ventricular cavity size is normal. The right ventricular global systolic function is mildly reduced. Right Atrium: The right atrial cavity size is normal. Aortic Valve: The aortic valve is trileaflet. The aortic valve leaflets are mildly thickened. There is a trace of aortic regurgitation. There is no evidence of aortic stenosis. Mitral Valve: The mitral valve leaflets are mildly thickened. There is trace to mild mitral regurgitation. There is no evidence of mitral stenosis. Tricuspid Valve: The tricuspid valve leaflets are normal. There is mild tricuspid regurgitation. The right ventricular systolic pressure is estimated at 37 mmHg. There is evidence of mild pulmonary hypertension. There is no tricuspid stenosis. Pulmonic Valve: The pulmonic valve appears normal. There is a trace pulmonic regurgitation. There is no pulmonic stenosis. Pericardium: There is no significant pericardial effusion. A left pleural effusion is present. Aorta: There is no dilatation of the ascending aorta. The aortic arch is not well visualized. The aortic root is normal in size. Pulmonary Artery: The main pulmonary artery appears normal. Venous: The inferior vena cava is dilated. There is a greater than 50% respiratory change in the inferior vena cava dimension. Conclusions Mild concentric left ventricular hypertrophy is observed. The estimated ejection fraction is 50-55%. Left ventricular systolic function is at the lower limits of normal. The apical lateral, and apical inferior wall segments are hypokinetic (score 2). Abnormal left ventricular diastolic function is observed. The right ventricular global systolic function is mildly reduced. There is no evidence of aortic stenosis. There is trace to mild mitral regurgitation. There is mild tricuspid regurgitation. There is evidence of mild pulmonary hypertension. There is no dilatation of the ascending aorta. Compared to study of 08/24/17, the Lv function is better with less wall motion abnormalities. Est PASP is lower Measurements Name Value Normal Range RVIDd (AP) 2D 2.6 cm (0.9 - 2.6) RVDdMajor (2D) 3.8 cm (2.2 - 4.4) RAd ISD 4CH 4.8 cm (3.4 - 4.9) RA (A4C)W 3.9 cm (2.9 - 4.6) IVSd (2D) 1.1 cm (0.6 - 1) LVPWd (2D) 1.1 cm (0.6 - 1) LVIDd (2D) 3.4 cm (3.6 - 5.4) LVIDs (2D) 2.2 cm - LV FS (2D) 37 % (25 - 45) Aortic Annulus 2 cm (1.4 - 2.6) Ao root diameter (2D) 3.3 cm (2.1 - 3.5) Ascending Ao 3.1 cm (2.1 - 3.4) LA dimension (AP) 2D 3.6 cm (2.3 - 3.8) LAd ISD 4CH 5.3 cm (2.9 - 5.3) LA ISD 4CH W 4 cm (2.5 - 4.5) Name Value Normal Range LA ESV SP 4CH (A/L) 45 ml - LA ESV SP 2CH (A/L) 54 ml - LA ESV BP (A/L) 50 ml - LA ESV BP (A/L) index 33 ml/m2 - LA ESV SP 4CH (MOD) 43 ml - LA ESV SP 2CH (MOD) 51 ml - Name Value Normal Range MV E-wave Vmax 0.51 m/sec - MV deceleration time 126.7 msec - MV A-wave Vmax 0.83 m/sec - MV E:A ratio 0.62 ratio - LV septal e' Vmax 0.04 m/sec - LV lateral e' Vmax 0.09 m/sec - LV E:e' septal ratio 12.5 ratio - LV E:e' lateral ratio 5.56 ratio - Name Value Normal Range AV Vmax 1.55 m/sec - AV VTI 24.1 cm - AV peak gradient 9.59 mmHg - AV mean gradient 4.34 mmHg - LVOT Vmax 0.91 m/sec - LVOT VTI 16.38 cm - LVOT peak gradient 3.33 mmHg - LVOT mean gradient 1.9 mmHg - Name Value Normal Range TR Vmax 2.7 m/sec - TR peak gradient 29 mmHg - RAP 8 mmHg - RVSP 37 mmHg - IVC diameter 2.2 cm - Name Value Normal Range PV Vmax 0.69 m/sec - PV peak gradient 1.94 mmHg - Wallmotion BAS Not Seen BA Not Seen BAL Not Seen CANDACE Not Seen BI Not Seen BIS Not Seen MAS Not Seen MA Not Seen MAL Not Seen MIL Not Seen AR Not Seen MIS Not Seen Not Seen AA Not Seen AL Hypokinetic AI Hypokinetic APEX Not Seen
--- NOTE | 2017-09-07 12:45 | DS ---
DATE OF ADMISSION: 09/06/2017. DATE OF DISCHARGE: 09/07/2017. ADMITTING PROVIDER: Alf Price MD ATTENDING PHYSICIAN: Zaid Flores MD. PRIMARY CARE PHYSICIAN: Dr. Fuller. CHIEF COMPLAINT: Right inferior chest pain, worse with deep inspiration, subjective fevers and chills, night sweats, lightheadedness and mild palpations. PRINCIPAL DIAGNOSIS: Pneumonia; recent NSTEMI. HISTORY OF PRESENT ILLNESS AND HOSPITAL COURSE: Ms. Parks is a 72-year-old female with a past medical history of recent NSTEMI on 08/24/2017, COPD, hypertension, hyperlipidemia, severe rheumatoid arthritis with deformities in her hands, anxiety and depression presenting from [facility] with pain in her right chest, worse with deep inspiration lying flat or sitting at 90 degrees with complaint of feeling overall awful with some point tenderness in her ribs. She also complained of subjective fevers, chills, night sweats times two nights, lightheadedness, and mild palpitations. She denied any cough, sputum production, congestion, nausea, vomiting, diarrhea, rash or other issues. She was admitted. She presented to the [facility] emergency room, had a chest x-ray which was concern for left basilar consolidation with right basilar atelectasis versus consolidation. She was started on Levaquin for potential pneumonia, had improvement in her symptoms. Rapid flu was negative. She had no leukocytosis. T-max was 99.7. She had negative urine legionella and strep pneumoniae antigens. She had troponins that ranged between 0.19 and 0.24, down from prior weeks when she had a troponin peak in the 42 in the setting of a recent NSTEMI. She had a repeat echocardiogram given recent NSTEMI that was medically managed and it showed improvement in her ejection fraction to 50 to 55 percent, up from 45 to 50 percent and decrease in the regional wall motion abnormalities. She still had apical lateral and apical inferior wall hypokinesis. There was still abnormal diastolic dysfunction. No significant valvular abnormalities. There was some mild hypertension. She felt improved and was considered stable for discharge with home antibiotics, continuation of Levaquin seven day course. She is being transferred to the [facility]. DISCHARGE MEDICATIONS: 1. Levaquin 750 mg p.o. daily for 5 more tabs, total 7 day course. 2. Aspirin 81 mg daily. 3. Atorvastatin 80 mg p.o. daily. 4. Bupropion 300 mg p.o. q.a.m. 5. Calcium Carbonate 1,000 mg p.o. q.4 hours prn for indigestion. 6. Colace 100 mg p.o. b.i.d. 7. Fentanyl 50 mcg transdermal patch q.72 hours for pain. 8. Folic acid 1 mg p.o. q.a.m. 9. Gabapentin 300 mg p.o. q.i.d. 10. Levothyroxine 75 mcg p.o. daily. 11. Metoprolol 12.5 mg p.o. b.i.d. 12. Omeprazole 20 mg p.o. q.a.m. 13. Oxycodone 5 mg p.o. q.3 hours prn. 14. Potassium Chloride 20 mEq p.o. daily. 15. Prednisone 5 mg p.o. daily. 16. Senna two tablets p.o. at bedtime. 17. Zanaflex 2 mg p.o. t.i.d. 18. Glycerin suppository per rectum q.a.m. prn for constipation. 19. Melatonin 300 mg p.o. at bedtime. 20. Multivitamin one tab p.o. daily. 21. Zofran 4 mg p.o. q.6 hours prn nausea. DISCHARGE DIET: Heart healthy, unchanged. ACTIVITY LEVEL: Patient with severe rheumatoid arthritis deformities in her hands, but able to transfer independently given adequate pain control, requiring additional physical therapy at long-term care rehab. FOLLOW-UP: Please follow-up with Dr. Fuller or with the physicians at [facility] long-term care facility within five days of discharge. TIME SPENT ON THIS DISCHARGE: 35 minutes. [id number]/[facility] #: [id number] PHUC
--- NOTE | 2017-09-07 17:35 | PN ---
Subjective Date of Service: 09/07/17 Interval History: Tmax 99.7. Sat'ing mid 90s on RA ECHO with improvement in EF to 50-55% Able to transfer independently. Feeling better than on admission. Discharged to [facility] but they blocked transfer as no [facility] available to get her there before there 1400 cut-off. Systolics mostly 90/60s, asymptomatic. Objective Active Medications: Acetaminophen (Tylenol Tab*) 650 mg PO Q6H PRN PRN Reason: FEVER/PAIN Last Admin: 09/06/17 01:05 Dose: 650 mg Aspirin (Aspirin Ec Low Dose*) 81 mg PO DAILY [facility] Last Admin: 09/07/17 09:45 Dose: 81 mg Atorvastatin Calcium (Lipitor*) 80 mg PO BEDTIME [facility] Last Admin: 09/06/17 20:33 Dose: 80 mg Bupropion HCl (Bupropion Xl*) 300 mg PO QAM [facility] Last Admin: 09/07/17 09:46 Dose: 300 mg Calcium Carbonate (Tums*) 1,000 mg PO Q4H PRN PRN Reason: INDIGESTION Docusate Sodium (Colace Cap*) 100 mg PO BID [facility] Last Admin: 09/07/17 09:46 Dose: 100 mg Fentanyl (Duragesic Patch 50 Mcg/Hr*) 50 mcg TRANSDERM Q72H [facility] Last Admin: 09/06/17 03:01 Dose: 50 mcg Folic Acid (Folvite Tab*) 1 mg PO QAM [facility] Last Admin: 09/07/17 09:45 Dose: 1 mg Gabapentin (Neurontin Cap(*)) 300 mg PO QID [facility] Last Admin: 09/07/17 14:33 Dose: Not Given Heparin Sodium (Porcine) (Heparin Vial(*)) 5,000 units SUBCUT Q8HR [facility] Last Admin: 09/07/17 14:34 Dose: 5,000 units Levofloxacin/Dextrose (Levaquin 750 Mg Ivpremix(*)) 750 mg in 150 mls @ 100 mls /hr IVPB Q24H [facility] Last Admin: 09/06/17 22:04 Dose: 100 mls/hr Levothyroxine Sodium (Synthroid Tab*) 75 mcg PO DAILY@0600 [facility] Last Admin: 09/07/17 05:29 Dose: 75 mcg Metoprolol Tartrate (Lopressor Tab*) 12.5 mg PO BID [facility] Last Admin: 09/07/17 09:46 Dose: 12.5 mg Omeprazole (Prilosec Cap*) 20 mg PO QAM [facility] Last Admin: 09/07/17 09:45 Dose: 20 mg Oxycodone HCl (Roxycodone Tab*) 5 mg PO Q3H PRN PRN Reason: PAIN Last Admin: 09/07/17 14:33 Dose: 5 mg Pharmacy Profile Note (Fentanyl Patch Check Q Shift) 1 note N/A 0700,1900 [facility] Last Admin: 09/07/17 06:45 Dose: 1 note Potassium Chloride (Klor Con Er Tab*) 20 meq PO DAILY [facility] Last Admin: 09/07/17 09:45 Dose: 20 meq Prednisone (Deltasone Tab*) 5 mg PO DAILY [facility] Last Admin: 09/07/17 09:46 Dose: 5 mg Senna (Senokot Tab*) 2 tab PO BEDTIME [facility] Last Admin: 09/06/17 20:33 Dose: 2 tab Tizanidine HCl (Zanaflex Tab*) 2 mg PO TID [facility] Last Admin: 09/07/17 14:34 Dose: 2 mg Vital Signs - 8 hr 09/07/17 09/07/17 09/07/17 09:37 09:45 11:19 Temperature 98.6 F Pulse Rate 91 Respiratory 18 18 20 Rate Blood Pressure 72/41 (mmHg) O2 Sat by Pulse 72 Oximetry 09/07/17 09/07/17 09/07/17 11:22 11:44 12:00 Temperature Pulse Rate 90 Respiratory 20 Rate Blood Pressure 76/41 80/56 90/40 (mmHg) O2 Sat by Pulse 95 Oximetry 09/07/17 09/07/17 09/07/17 14:32 14:33 16:24 Temperature Pulse Rate 84 Respiratory 16 18 16 Rate Blood Pressure 75/45 (mmHg) O2 Sat by Pulse 95 Oximetry 09/07/17 16:32 Temperature Pulse Rate Respiratory Rate Blood Pressure 90/52 (mmHg) O2 Sat by Pulse Oximetry Oxygen Devices in Use Now: None Appearance: NAD, chronically ill appearing. Eyes: No Scleral Icterus, PERRLA Neck: NL Appearance and Movements; NL JVP, Trachea Midline Respiratory: Symmetrical Chest Expansion and Respiratory Effort, Clear to Auscultation Cardiovascular: NL Sounds; No Murmurs; No JVD Abdominal: NL Sounds; No Tenderness; No Distention, No Hepatosplenomegaly Extremities: No Edema, No Clubbing, Cyanosis, - - severe deformative changes in b/l hands. Skin: No Rash or Ulcers, No Nodules or Sclerosis Neurological: Alert and Oriented x 3, NL Sensation, NL Muscle Strength and Tone Nutrition: Taking PO's Result Diagrams: 09/06/17 05:16 09/06/17 05:16 Microbiology and Other Data: Microbiology 09/05/17 23:20 Urine Legionella Urinary Antigen - Final Negative Legionella 09/05/17 23:20 Urine Streptococcus pneumoniae Ag Screen - Final Negative S. pneumo Antigen 09/06/17 02:30 Nasal Influenza Types A,B Antigen (KEI) - Final Specimen received for Influenza A/B Molecular testing Assess/Plan/Problems-Billing Assessment: 72 yo female PMH recent late presenting [place] on 08/24, COPD, HTN, HLD, anxiety, depression, severe deformative RA, recent decompressive cervical spinal surgery p/w right chest pain, SOB, night sweats, subjective F/C. Treating for pna, improving on levaquin. ECHO with improved EF. Discharge order placed. High Utilizer from [facility] - Patient Problems (1) Pneumonia Current Visit: Yes Status: Acute Code(s): J18.9 - PNEUMONIA, UNSPECIFIED ORGANISM SNOMED Code(s): 604343860 Comment: Continue levaquin. planned 7 day course. low grade fevers. Recent Hx of MRSA nares positive. Improvining clinically on empiric levaquin started on admission. legionella and strep pna U Ag negative. procalcitonin was wnl 0.2. (2) CAD (coronary artery disease) Current Visit: No Status: Chronic Code(s): I25.10 - ATHSCL HEART DISEASE OF [place] CORONARY ARTERY W/O ANG PCTRS SNOMED Code(s): 45336656 Comment: As above continue ASA, continue lipitor. Metoprolol currently on hold for low BP. (3) COPD (chronic obstructive pulmonary disease) Current Visit: No Status: Chronic Code(s): J44.9 - CHRONIC OBSTRUCTIVE PULMONARY DISEASE, UNSPECIFIED SNOMED Code(s): 72859642 Comment: Not bronchospastic. Not on any inhalers at home. chronic low dose prednisone for RA. No PFTs in system. (4) HTN (hypertension) Current Visit: No Status: Chronic Code(s): I10 - ESSENTIAL (PRIMARY) HYPERTENSION SNOMED Code(s): 98993746 Comment: Metoprolol 12.5mg held. (5) Hypothyroidism Current Visit: No Status: Chronic Code(s): E03.9 - HYPOTHYROIDISM, UNSPECIFIED SNOMED Code(s): 20831626 Comment: Continue Levothyroxine 75 mcg daily (home dose). (6) PVD (peripheral vascular disease) Current Visit: No Status: Chronic Code(s): I73.9 - PERIPHERAL VASCULAR DISEASE, UNSPECIFIED SNOMED Code(s): 389459948 Comment: cont ASA, statin (7) Rheumatoid arthritis Current Visit: No Status: Chronic Code(s): M06.9 - RHEUMATOID ARTHRITIS, UNSPECIFIED SNOMED Code(s): 75544277 Comment: On low dose prednisone 5mg. Previously on mtx and more recently on plaquenil (stopped early july). Dr. Pedroza and learning support aide as outpatient Status and Disposition: medicine inpatient. Discharged 09/07 but transport could not be arranged before [facility]. Transport in AM. Attending: Zaid Flores
[2017-09-07] MEDS: Atorvastatin* 80 MG TAB PO SCH (20:52)
[2017-09-07] MEDS: Senna TAB PO SCH (20:52)
[2017-09-07] MEDS ORDERED: Levofloxacin TAB* 750 MG PO SCH (21:00)
[2017-09-08] MEDS: oxyCODONE TAB* 5 MG TAB PO PRN ×2 (01:06→05:01)
[2017-09-08] MEDS: Heparin VIAL(*) 5000 UNITS/ML VIAL (FIVE THOUSAND) SUBCUT SCH (05:01)
[2017-09-08] MEDS: Levothyroxine TAB* 75 MCG TAB PO SCH (05:01)
[2017-09-08 05:23] VITALS: BP 153/73
[2017-09-08 05:31] LABS: ABS Basophils 0 10^3/ul (0-0.2); ABS Eosinophils 0.2 10^3/ul (0-0.6); ABS Lymphocytes 1.2 10^3/ul (1.0-4.8); ABS Monocytes 0.6 10^3/ul (0-0.8); ABS Neutrophils 3.4 10^3/ul (1.5-7.7); ABS Nucleated RBC 0 10^3/ul; Hematocrit 32 % (35-47); Hemoglobin 10.1 g/dl (12.0-16.0); Lymphocyte % 22.4 % (25-47); Mean Corpuscular HGB Conc 32 g/dl (31-36); Mean Corpuscular Hemoglobin 24 pg (27-31); Mean Corpuscular Volume 77 fL (80-97); Mean Platelet Volume 8 um3 (7.4-10.4); Nucleated Red Blood Cells % 0.1; Platelet Count 310 10^3/ul (150-450); Red Blood Count 4.12 10^6/ul (4.0-5.4); Red Cell Distribution Width 19 % (10.5-15); White Blood Count 5.4 10^3/ul (3.5-10.8)
[2017-09-08] MEDS: fentaNYL Patch Check Q Shift 1 NOTE SCH (06:47)
[2017-09-08] MEDS: Omeprazole CAP* 20 MG PO SCH (07:52)
[2017-09-08] MEDS: predniSONE TAB* 5 MG PO SCH (07:52)
[2017-09-08] MEDS: Aspirin EC Low Dose* 81 MG TAB.EC PO SCH (07:52)
[2017-09-08] MEDS: Potassium Chlor TAB* 20 MEQ TAB.ER PO SCH (07:52)
[2017-09-08] MEDS: Folic Acid TAB* 1 MG PO SCH (07:52)
[2017-09-08] MEDS: tiZANidine TAB* 2 MG PO SCH (07:52)
[2017-09-08] MEDS: BuPROPion XL* 300 MG TAB.XL PO SCH (07:52)
[2017-09-08] MEDS: Gabapentin CAP(*) 300 MG PO SCH (07:52)
[2017-09-08] MEDS: Docusate CAP* 100 MG PO SCH (07:52)
== END 2017-09-08 08:00 | DRG 193 ==
LOC: ED 19:11 → MEDTELE 09-06 00:18
PROVIDERS: ADMIT Hospitalist; ATTEND Internal Medicine
DX: J18.9 Pneumonia, unspecified organism (principal); I21.4 Non-ST elevation (NSTEMI) myocardial infarction; I50.30 Unspecified diastolic (congestive) heart failure; I11.0 Hypertensive heart disease with heart failure; I25.119 Atherosclerotic heart disease of native coronary artery with unspecified angina pectoris; J44.9 Chronic obstructive pulmonary disease, unspecified; M06.9 Rheumatoid arthritis, unspecified; E78.5 Hyperlipidemia, unspecified; E03.9 Hypothyroidism, unspecified; K21.9 Gastro-esophageal reflux disease without esophagitis; F41.8 Other specified anxiety disorders; R74.8 Abnormal levels of other serum enzymes; Z86.718 Personal history of other venous thrombosis and embolism; I73.9 Peripheral vascular disease, unspecified; Z79.1 Long term (current) use of non-steroidal anti-inflammatories (NSAID); Z79.82 Long term (current) use of aspirin; Z79.891 Long term (current) use of opiate analgesic; Z79.52 Long term (current) use of systemic steroids; Z79.899 Other long term (current) drug therapy; Z88.8 Allergy status to other drugs, medicaments and biological substances; Z91.040 Latex allergy status; Z80.0 Family history of malignant neoplasm of digestive organs; Z81.8 Family history of other mental and behavioral disorders
CPT/HCPCS: 36415; 71045; 80048; 80053; 82565; 83605; 83880; 84145; 84484; 84520; 85025; 85610; 85730; 87502; 87899; 93005; 93306; A9270-GY; J1644; J7512

== ENCOUNTER 2017-10-13 23:20 | Emergency (ER) | payer MEDICARE, MEDICAID ==
--- NOTE | 2017-10-14 00:56 | ED ---
Neck Pain - HPI Summary HPI Summary: Patient is a 72-year-old female presenting from [facility] with chief complaint of pain to the left lateral side of the neck which originates behind the ear radiating down the neck and into the posterior left shoulder without involving the shoulder joint. Today, while at the [place] a new aid tried to move her with a moist and she said her neck strained. She endorses tenderness and pain upon movement, 3 out of 10 pain at rest. Denies any numbness or tingling into the bilateral arms. Pulses +2 bilaterally. She had recently had spinal fusion by Dr. Fatima and is currently wearing a neck brace. She was recently okayed to remove the neck brace at night, but continue to wear it during the day as she does PT. She is afraid the injury today possibly has exacerbated the symptoms. - History of Current Complaint Chief Complaint: EDNeckComplaint Stated Complaint: NECK PAIN Time Seen by Provider: 10/14/17 00:06 Hx Obtained From: Patient Onset/Duration Of Injury/Symptoms: Hours Timing: Constant Onset/Duration: Gradual Onset Severity Initially: Moderate Severity Currently: Moderate Pain Intensity: 8 Pain Scale Used: 0-10 Numeric Character: Aching Alleviating Factors: Position - Risk Factors Meningitis Risk Factors: Negative Risk Factors For Cervical Spine Injury: Posterior Midline Cervical Spine Tenderness - Allergies/Home Medications Allergies/Adverse Reactions: Allergies Allergy/AdvReac Type Severity Reaction Status Date / Time MS Cephalosporins Allergy Mild Abdominal Verified 10/13/17 23:37 [Cephalosporins] Pain MS Latex [Latex] Allergy Mild Rash Verified 10/13/17 23:37 PMH/Surg Hx/FS Hx/Imm Hx Previously Healthy: Yes Endocrine/Hematology History: Reports: Hx Anticoagulant Therapy - heparin for DVT prophylaxis, Hx Thyroid Disease - hypothyroid, Hx Anemia Denies: Hx Diabetes, Hx Systemic Lupus Erythematosus Cardiovascular History: Reports: Hx Angina, Hx Angioplasty, Hx Cardiac Arrest, Hx Congestive Heart Failure, Hx Coronary Artery Disease - stent placed, Hx Hypercholesterolemia, Hx Hypertension, Hx Myocardial Infarction, Other Cardiovascular Problems/Disorders - DR. DUNLAP Denies: Hx Pacemaker/ICD, Hx Valvular Heart Disease Respiratory History: Reports: Hx Chronic Obstructive Pulmonary Disease (COPD), Other Respiratory Problems/Disorders - OCCASIONALLY DIFFICULTY BREATHING- PRN PROVENTIL- STATES HELPS Denies: Hx Asthma, Hx Lung Cancer, Hx Pneumonia, Hx Seasonal Allergies, Hx Sleep Apnea GI History: Reports: Hx Gall Bladder Disease - cholecystectomy, Hx Gastroesophageal Reflux Disease - ON MEDICATION FOR, Other GI Disorders - colitis History: Reports: Hx Kidney Infection, Hx Kidney Stones Denies: Hx Dialysis, Hx Renal Disease Musculoskeletal History: Reports: Hx Arthritis, Hx Rheumatoid Arthritis, Hx Back Problems, Hx Fibromyalgia, Hx Osteoporosis, Other Musculoskeletal History - herniated disc back T5 and cervical area Sensory History: Reports: Hx Cataracts, Hx Contacts or Glasses - Reading glasses Denies: Hx Glaucoma, Hx Hearing Aid Opthamlomology History: Reports: Hx Cataracts, Hx Contacts or Glasses - Reading glasses Denies: Hx Glaucoma Neurological History: Reports: Hx Migraine - RARELY, Hx Seizures Denies: Hx Nerve Disease, Hx Spinal Cord Injury, Hx Transient Ischemic Attacks (TIA) Psychiatric History: Reports: Hx Anxiety - ON MEDICATION FOR, Hx Depression - ON MEDICATION FOR Denies: Hx Panic Disorder - Surgical History Surgery Procedure, Year, and Place: Cardiac stent; right hand surgery; left foot surgery; neck surgery, cholecystectomy, hysterectomy, emergency bowel block (>20 years ago) Hx Anesthesia Reactions: No Infectious Disease History: Yes Infectious Disease History: Reports: Hx of Known/Suspected MRSA Denies: Traveled Outside the [place] in Last 30 Days - Family History Known Family History: Positive: None, Other - [place]. cancer. TIA - Social History Occupation: Unemployed Lives: [facility] Alcohol Use: None Hx Substance Use: No Substance Use Type: Reports: None Hx Tobacco Use: Yes - not currently Smoking Status (MU): Former Smoker Type: Cigarettes Amount Used/How Often: 1 PPD X 45 YEARS Length of Time of Smoking/Using Tobacco: 48 years Have You Smoked in the Last Year: No Review of Systems Constitutional: Negative Negative: Fever, Chills, Fatigue, Skin Diaphoresis Eyes: Negative Cardiovascular: Negative Respiratory: Negative Negative: Abdominal Pain, Vomiting, Diarrhea, Nausea Genitourinary: Negative Positive: no symptoms reported, see HPI Positive: Arthralgia Skin: Negative Neurological: Negative All Other Systems Reviewed And Are Negative: Yes Physical Exam Triage Information Reviewed: Yes Vital Signs On Initial Exam: Initial Vitals Temp Pulse Resp BP Pulse Ox 98.2 F 99 14 147/73 98 10/13/17 23:32 10/13/17 23:32 10/13/17 23:32 10/13/17 23:32 10/13/17 23:32 Vital Signs Reviewed: Yes Appearance: Positive: Well-Appearing, Well-Nourished Skin: Positive: Warm, Skin Color Reflects Adequate Perfusion Head/Face: Positive: Normal Head/Face Inspection Eyes: Positive: EOMI, JULIANNE, Conjunctiva Clear Neck: Positive: Tenderness @ - Left lateral neck and posterior shoulder Respiratory/Lung Sounds: Positive: Clear to Auscultation, Breath Sounds Present Cardiovascular: Positive: RRR, Pulses are Symmetrical in both Upper and Lower Extremities Musculoskeletal: Positive: Pain @ - Left lateral neck and posterior shoulder Neurological: Positive: Speech Normal Psychiatric: Positive: Affect/Mood Appropriate Diagnostics - Vital Signs Vital Signs Temp Pulse Resp BP Pulse Ox 10/13/17 23:32 98.2 F 99 14 147/73 98 - Laboratory Lab Statement: Any lab studies that have been ordered have been reviewed, and results considered in the medical decision making process. Neck Course/Dx - Course Course Of Treatment: During the course of treatment, the patient is sent for CT of the cervical spine. An x-ray is not obtained as shoulder joint is not involved. It appears to be a cervical strain. She is given heat packs on arrival. CT of the cervical spine shows possible changes of mild compression superior endplate of T3 which is new. Thoracic obtained. Patient is resting comfortably and in no acute distress. Patient was signed out at 2 AM pending thoracic spine and comparison of previous x-ray to recent CT which was recently sent over to the overnight radiology for a read. I am diagnosing her with a cervical strain at this time while awaiting the results. Final diagnosis will be from the accepting provider. - Diagnoses Differential Dx/HQI/PQRI: Positive: Cervical Fracture Provider Diagnoses: Cervical strain, acute Discharge - Discharge Plan Condition: Good Disposition: ADMITTED TO OTHER HOSPITAL Discharge Disposition Comment: Signed out to Dr. Kirk at 2am. Referrals: Fernando Fuller DO [Primary Care Provider] -
--- NOTE | 2017-10-14 06:35 | ED ---
Darren Sandoval Gabriel, scribed for Shanell Kirk MD on 10/14/17 at 0617 . Progress - Progress Note Progress Note: The patient was signed out from [facility] awaiting CT T spine results and disposition. CT T spine revealed a hardware fracture at C2 and an acute compression fracture of T3. I discussed the patient care with Dr. Robles and he came to see the patient. He then suggested the patient should be kept in the ED until 0700 and at this time he will contact the neurologist at [facility]. Course/Dx - Course Course Of Treatment: During the course of treatment, the patient is sent for CT of the cervical spine. An x-ray is not obtained as shoulder joint is not involved. It appears to be a cervical strain. She is given heat packs on arrival. - Provider Notifications Discussed Care Of Patient With: dEy Robles Time Discussed With Above Provider: 05:12 Instructed by Provider To: Other The documentation as recorded by the Darren erazo Gabriel accurately reflects the service I personally performed and the decisions made by me, Shanell Kirk MD.
[2017-10-14] MEDS ORDERED: Ondansetron INJ* 2 MG/ML VIAL IV ONE (08:07)
[2017-10-14] MEDS ORDERED: HYDROmorphone INJ* 2 MG/ML CARPUJECT SYRINGE IV SLOW PU ONE ×2 (08:07→09:05)
--- NOTE | 2017-10-14 08:21 | RAD ---
Indication: Neck injury. History of rheumatoid arthritis. CT of the cervical spine was obtained in the axial plane. Sagittal and coronal reconstructed images were obtained. The vertebral bodies appear normal in height. Diffuse osteopenia is noted. The skull base demonstrates no fracture. Mastoid air cells are well aerated. There are erosive changes at the C1-C2 anterior arch which was present on previous exam of July 19, 2017 and likely chronic. There is grade 2 spondylolisthesis of C2 on 3. Mild grade 1 spondylolisthesis of C3 on 4 is noted. Disc space narrowing at C4-C5, C5-C6 and C6-C7 is noted. 1 spondylolisthesis of C7-T1 is noted. The alignment appears to be similar to that seen on July 19, 2017. There is a history of rheumatoid arthritis and this likely pannus formation at the atlantoaxial joint. Posterior fusion is noted from C2 through T2.. There is mild compression of the T3 vertebra superior endplate with osteopenia. This is likely new. IMPRESSION: Patient with rheumatoid arthritis and erosive changes of the atlantoaxial joint. There is spondylolisthesis of C2 on 3 and C3 on C4 as well as C7 on T1 with posterior fusion of C2-T2. Alignment appears to be similar to that seen on prior MRI dated July 19, 2017. Mild compression superior endplate of T3 appears to be a new prior exam of July 19, 2017.
--- NOTE | 2017-10-14 08:28 | RAD ---
Indication: Fracture is noted on the thoracic spine on the prior CT of the cervical spine. CT of the thoracic spine was obtained in the axial plane. Sagittal and coronal reconstructed images were obtained. A prior CTA of the chest dated May 24, 2016 was reviewed. There is less than 25% compression of T3 which is new. Focal area of osteopenia is noted in the anterior thoracic spine for which a pathologic fracture is not excluded. Degenerative disc disease at T4-T5, T5-T6 is noted. There is mild compression of T7. This is new since previous exam. Marked compression of T6 is noted. This is chronic. Degenerative disc disease at T8-T9, T9-T10 is noted. Vertebral plana of T12 is noted which is unchanged from previous exam. IMPRESSION: Diffuse osteopenia. Mild compression of T3 with osteopenia in the anterior portion of the vertebral bodies with the possibility of pathologic fracture of T3 should BE considered. There is approximately 25-50% compression of T7 which appears new since June 13, 2017. Marked compression of T8 is noted. Vertebral plana of T12 is noted which has been present at least since May 2017..
[2017-10-14 08:54] VITALS: BP 135/69
--- NOTE | 2017-10-15 00:34 | ED ---
Elvis Sandoval Stephanie, scribed for Preeti Case MD on 10/14/17 at 0712 . Progress - Progress Note Progress Note: The patient was signed out from Elisha Hussein awaiting CT T spine results and disposition. CT T spine revealed a hardware fracture at C2 and an acute compression fracture of T3. I discussed the patient care with Dr. Robles and he came to see the patient. He then suggested the patient should be kept in the ED until 0700 and at this time he will contact the neurologist at [place]. The pt is a sign out from Dr. Kirk at shift change at 07:00 on 10/14/17. Dr. Case and Dr. Kirk suggest the care of the pt and recommend transfer of the pt at 07:07. The pt reports she has neck pain. Course/Dx - Course Course Of Treatment: During the course of treatment, the patient is sent for CT of the cervical spine. An x-ray is not obtained as shoulder joint is not involved. It appears to be a cervical strain. She is given heat packs on arrival. ED physician spoke to the transfer center to discuss possible transfer of the pt. Dr. Case Shift: The ED physician discusses the plan of transfer to the pt at 07:07. The pt was accepted as a transfer to [place] [facility]. - Diagnoses Provider Diagnoses: Cervical strain, acute - Provider Notifications Time Discussed With Above Provider: 05:12 Instructed by Provider To: Other The documentation as recorded by the louisaibeElvis Stephanie accurately reflects the service I personally performed and the decisions made by me, Preeti Case MD.
== END 2017-10-14 08:51 | disposition short-term general hospital (02) ==
LOC: ED 23:20
DX: S16.1XXA Strain of muscle, fascia and tendon at neck level, initial encounter (principal); X50.9XXA Other and unspecified overexertion or strenuous movements or postures, initial encounter; Y92.129 Unspecified place in nursing home as the place of occurrence of the external cause; Z87.891 Personal history of nicotine dependence
CPT/HCPCS: 72125; 72128; 96374; 96375; 99284; J1170; J2405

== ENCOUNTER 2017-10-27 08:24 | Inpatient (IN) | payer MEDICARE, MEDICAID ==
[2017-10-27] MEDS ORDERED: Senna TAB PO PRN (13:10)
[2017-10-27] MEDS ORDERED: Magnesium Hydroxide LIQ* 30 ML UDC PO PRN (13:10)
[2017-10-27] MEDS: fentaNYL PATCH 50 MCG/HR TRANSDERM SCH (14:20)
[2017-10-27] MEDS: Gabapentin CAP(*) 300 MG PO SCH ×2 (14:22→20:00)
[2017-10-27] MEDS: Heparin VIAL(*) 5000 UNITS/ML VIAL (FIVE THOUSAND) SUBCUT SCH ×2 (14:28→20:03)
[2017-10-27] MEDS: oxyCODONE TAB* 5 MG TAB PO PRN ×2 (14:54→20:03)
[2017-10-27] MEDS: fentaNYL Patch Check Q Shift 1 NOTE SCH (15:00)
[2017-10-27] MEDS: Atorvastatin* 20 MG TAB PO SCH (17:05)
[2017-10-27] MEDS: Docusate CAP* 100 MG PO SCH (20:01)
[2017-10-27] MEDS: Metoprolol Tartrate TAB* 25 MG PO SCH (20:01)
[2017-10-27] MEDS: Famotidine TAB* 20 MG PO SCH (20:01)
--- NOTE | 2017-10-27 22:29 | HP ---
ADMISSION HISTORY AND PHYSICAL: DATE OF ADMISSION: 10/27/17 REASON FOR ADMISSION: Cervical myelopathy. HISTORY OF ILLNESS: Cinthya Parks is a 72-year-old white female. She has a medical history significant for rheumatoid arthritis. She is on chronic prednisone treatment for that and has osteoporosis as a result. The patient normally sees Maxx Hughes and Dr. Pedroza from Rheumatology. In July 2017 , the patient was developing increasing weakness in her upper extremities. The patient saw her primary care doctor, who ordered an MRI of her cervical spine. However, before this could be done, the patient had difficulty getting into her wheelchair in her own house and pressed her life alert button. She was brought to the hospital. The patient had a cervical spine MRI done on 07/19/17, which showed erosive changes of the atlantoaxial articulation. There was severe narrowing of the central canal at C2-3 and C3-4. The patient appeared to be myelopathic. Evaluation by neurosurgery felt that the patient had subluxation of C2-3 and C3-4 with severe cord compression and recommended transferring her to the [facility] for surgery. The patient underwent a C2- T2 fusion by Dr. Nunez on 07/28/17. She was then sent to rehab at [facility] near where the patient lived. The patient had a hospitalization in August 2017 after she had developed chest pain. The patient had a troponin that peaked to 42.6 and was evaluated by Cardiology who felt it was a completed event and she would not benefit from cardiac catheterization. She was treated conservatively with medical management. She was also diagnosed with a urinary tract infection. She was sent back to the [facility]. The patient did okay until 10/14/2017. The patient was being transferred by some aides at the shelter from her bed to a wheel- chair. Apparently, one of the aides grabbed the patient by the arm instead of by her gait belt. The patient felt a snap and a pop in her neck while changing position. She was brought to [facility] and had a CAT scan of her cervical spine. Apparently, the CAT scan showed that her screws at C2 had broken and she had an acute compression fracture at T3 and T7. She was evaluated by Dr. Robles who recommended transferring the patient back to [place]. She went back to [place] and on 10/20/17, she underwent a 0 to T4 fusion with a C7 point osteotomy and a T3 vertebro-plasty. She was put in a [place] collar postoperatively and she was told she needs to stay in the collar at all times. The patient refused to go back to [facility]. She is hoping that she will be able to get strong enough to return to her apartment. She is now being admitted for inpatient rehab, so that she might return to independent living. PAST MEDICAL HISTORY: Significant for the aforementioned rheumatoid arthritis. She has a history of COPD. She has a history of coronary artery disease and had a myocardial infarct as mentioned in August. She also has had a past history of myocardial infarct and had a stent. She had a previous cervical spine fracture and had surgery for that 10 years ago. She has a history of osteoporosis as a result of her many years of prednisone use. She has a history of gastroesophageal reflux disease as well. ALLERGIES: The patient has allergies listed to CEPHALOSPORINS. CURRENT MEDICATIONS: Include: 1. Aspirin 81 mg daily. 2. She is on Lipitor. 3. Wellbutrin. 4. She is on Os-Eron D. 5. Pepcid. 6. Fentanyl patch. 7. Neurontin. 8. Heparin for DVT prophylaxis. 9. Synthroid. 10. Lopressor. 11. Forteo. 12. Oxycodone. 13. Potassium. 14. Prednisone. Of note, the Forteo was started recently at her hospital in [place]. SOCIAL HISTORY: She is a nonsmoker, nondrinker. She was a former smoker, who quit in 2004 after she had a heart attack. She lives in a one-story apartment in [place], it is handicapped accessible. She did have a PERS unit. The patient has 4 children who are supportive. She states she cannot move in with any of her children. REVIEW OF SYSTEMS: The patient reports no current shortness of breath or chest pain. PHYSICAL EXAMINATION VITAL SIGNS: The patient's temperature is 99.1, blood pressure is 115/42, pulse is 87, respirations 16. HEENT: Her extraocular movements are intact. Tongue is midline. NECK: Her neck is immobilized in a cervical collar. LUNGS: Sound clear to auscultation bilaterally. HEART: Sounds are regular. S1 and S2 are audible. ABDOMEN: Soft and nontender. EXTREMITIES: Her extremities showed increased tone in her upper extremities. She has multiple deformities in her hands consistent with rheumatoid arthritis. NEUROLOGIC: The patient was awake, alert, oriented. She had limited strength in her upper extremities, about 3/5 strength in both upper extremities. She had difficulty raising her arms above her shoulder level. Her lower extremities were about 4+/5. ASSESSMENT: 1. Cervical myelopathy, status post cervical fusion. 2. Rheumatoid arthritis. 3. Osteoporosis. PLAN: We are going to integrate her into a comprehensive and therapeutic rehab program with the following goals: 1. Physical Therapy will work with the patient. They are going to work on functional transfer training, wheelchair mobilities. We will consider looking into whether she could have an electric wheelchair. 2. Occupational Therapy will see the patient. They are going to work on her activities of daily living including dressing and toileting. 3. Heparin for DVT prophylaxis. 4. Adequate analgesia. We will continue her fentanyl patch. 5. For osteoporosis, we will continue her Forteo. 6. For her rheumatoid arthritis, we will continue prednisone. 7. Coronary artery disease. We are going to continue her Lopressor, her aspirin, and her Lipitor. 8. For hypothyroidism, we will continue Synthroid. 9. For her gastroesophageal reflux, we will continue omeprazole and Pepcid. 10. [employer] will be closely involved to make sure that any services and equipment that the patient requires are in place prior to discharge. 11. Family training as appropriate. 12. Home with appropriate services. Estimated length of stay is 2 to 3 weeks. [id number]/[facility] #: [id number] PHUC
[2017-10-28] MEDS: oxyCODONE TAB* 5 MG TAB PO PRN ×4 (02:38→17:39)
[2017-10-28] MEDS: Omeprazole CAP* 20 MG PO SCH (06:17)
[2017-10-28] MEDS: Heparin VIAL(*) 5000 UNITS/ML VIAL (FIVE THOUSAND) SUBCUT SCH ×3 (06:17→21:06)
[2017-10-28] MEDS: Levothyroxine TAB* 75 MCG TAB PO SCH (06:17)
[2017-10-28] MEDS: fentaNYL Patch Check Q Shift 1 NOTE SCH ×3 (07:15→23:43)
[2017-10-28] MEDS: BuPROPion XL* 300 MG TAB.XL PO SCH (09:58)
[2017-10-28] MEDS: Aspirin EC Low Dose* 81 MG TAB.EC PO SCH (09:58)
[2017-10-28] MEDS: Gabapentin CAP(*) 300 MG PO SCH ×3 (09:58→20:48)
[2017-10-28] MEDS: Calcium/Vitamin D TAB 250/125* TAB PO SCH (09:58)
[2017-10-28] MEDS: Famotidine TAB* 20 MG PO SCH ×2 (09:58→20:49)
[2017-10-28] MEDS: Docusate CAP* 100 MG PO SCH ×2 (09:59→20:48)
[2017-10-28] MEDS: Metoprolol Tartrate TAB* 25 MG PO SCH ×2 (09:59→20:48)
[2017-10-28] MEDS: Potassium Chlor TAB* 20 MEQ TAB.ER PO SCH (09:59)
[2017-10-28] MEDS: FORTEO 20 MCG SUBCUT SCH (10:04)
[2017-10-28] MEDS: predniSONE TAB* 5 MG PO SCH (10:18)
[2017-10-28] MEDS: Acetaminophen TAB* 325 MG PO PRN (10:18)
[2017-10-28] MEDS: Calcium Carbonate CHEW TAB* 500 MG (TUMS) PO PRN ×2 (15:55→20:49)
[2017-10-28] MEDS: Atorvastatin* 20 MG TAB PO SCH (17:40)
--- NOTE | 2017-10-28 21:35 | PN ---
Progress Note Date of Service: 10/28/17 Note: NAEL JAUREGUI was visited. Therapy notes read and reviewed. She is unable to feed herself, and is dependent for most ADLs. Will likely need to talk to her daughter and the patient about the likelihood of returning to independent living in the short term. The combination of upper extemity weakness, decreased ROM from Rheumatoid Arthritis, and the cervical collar is quite difficult to overcome. Pain is well controlled. She has a chronic pressure ulcer on her buttock. Current Medications: Active Medications Generic Name Dose Route Start Last Admin Trade Name Freq PRN Reason Stop Dose Admin Acetaminophen 650 mg 10/27/17 13:10 10/28/17 10:18 Tylenol Tab* PO 650 mg Q6H PRN Administration FEVER/PAIN Aspirin 81 mg 10/28/17 09:00 10/28/17 09:58 Aspirin Ec Low Dose* PO 81 mg DAILY ORIN Administration Atorvastatin Calcium 20 mg 10/27/17 17:00 10/28/17 17:40 Lipitor* PO 20 mg 1700 ORIN Administration Bupropion HCl 300 mg 10/28/17 09:00 10/28/17 09:58 Bupropion Xl* PO 300 mg DAILY ORIN Administration Protocol Calcium Carbonate 500 mg 10/28/17 14:45 10/28/17 20:49 Tums* PO 500 mg Q4H PRN Administration DYSPEPSIA Calcium/Vitamin D 2 tab 10/28/17 09:00 10/28/17 09:58 Oscal D Tab 250/125* PO 2 tab DAILY ORIN Administration Docusate Sodium 100 mg 10/27/17 21:00 10/28/17 20:48 Colace Cap* PO 100 mg BID ORIN Administration Famotidine 20 mg 10/27/17 21:00 10/28/17 20:49 Pepcid Tab* PO 20 mg BID ORIN Administration Fentanyl 50 mcg 10/27/17 14:00 10/27/17 14:20 Duragesic Patch 50 Mcg/Hr* TRANSDERM 50 mcg Q72H ORIN Administration Gabapentin 300 mg 10/27/17 14:00 10/28/17 20:48 Neurontin Cap(*) PO 300 mg TID ORIN Administration Heparin Sodium (Porcine) 5,000 units 10/27/17 14:00 10/28/17 21:06 Heparin Vial(*) SUBCUT 5,000 units Q8HR ORIN Administration Levothyroxine Sodium 75 mcg 10/28/17 06:00 10/28/17 06:17 Synthroid Tab* PO 75 mcg DAILY@0600 ORIN Administration Magnesium Hydroxide 30 ml 10/27/17 13:10 Milk Of Magnesia Liq* PO Q6H PRN CONSTIPATION Metoprolol Tartrate 25 mg 10/27/17 21:00 10/28/17 20:48 Lopressor Tab* PO 25 mg BID ORIN Administration Pto: Forteo 20 Mcg ( 20 mcg 10/28/17 09:00 10/28/17 10:04 0.08 Ml) Injection SUBCUT 20 mcg DAILY ORIN Administration Omeprazole 20 mg 10/28/17 06:00 10/28/17 06:17 Prilosec Cap* PO 20 mg 0600 ORIN Administration Oxycodone HCl 5 mg 10/27/17 13:30 10/28/17 17:39 Roxycodone Tab* PO 5 mg Q4H PRN Administration PAIN - MODERATE TO SEVERE Pharmacy Profile Note 1 note 10/27/17 19:00 10/28/17 15:10 Fentanyl Patch Check Q Shift N/A 1 note 0700,1900 ORIN Administration Potassium Chloride 20 meq 10/28/17 09:00 10/28/17 09:59 Klor Con Er Tab* PO 20 meq DAILY ORIN Administration Prednisone 5 mg 10/28/17 09:00 10/28/17 10:18 Deltasone Tab* PO 5 mg DAILY ORIN Administration Senna 2 tab 10/27/17 13:10 Senokot Tab* PO BEDTIME PRN CONSTIPATION Vital Signs: Vital Signs Temp Pulse Resp BP Pulse Ox 98.5 F 90 18 114/53 91 10/28/17 17:30 10/28/17 17:30 10/28/17 20:48 10/28/17 17:30 10/28/17 17:30 Exam: NECK: immobilized in collar LUNGS: clear HEART: reg rhythm ABDOMEN: Soft EXTREMITIES: Deformities in hands NEUROLOGIC: Alert. Muscle strength about 3-/5 in upper extremities Assessment/Plan: 1. Cervical fusion-Occiput to T4: [place] AAT. PT/OT. 2. Cervical Myelopathy: PT/OT. gabapentin 3. Rheumatoid Arthritis: Prednisone 4. Osteoporsis: Forteo 5. GERD: Omeprazole/Pepcid 6. Hypothyroidism: Synthroid 7. Advanced directives: Patient voided her MOLST and is full code 8. DVT Prophylaxis: Heparin 9. History of NSTEMI/CAD: ASA/BetaBlocker/Lipitor 10. Analgesia: Fentanyl Patch/Oxycodone/Gabapentin 10/28/17 21:40
[2017-10-29] MEDS: oxyCODONE TAB* 5 MG TAB PO PRN ×3 (01:58→17:26)
[2017-10-29] MEDS: Calcium Carbonate CHEW TAB* 500 MG (TUMS) PO PRN ×5 (01:58→19:25)
[2017-10-29] MEDS: Omeprazole CAP* 20 MG PO SCH (06:13)
[2017-10-29] MEDS: Levothyroxine TAB* 75 MCG TAB PO SCH (06:13)
[2017-10-29] MEDS: Heparin VIAL(*) 5000 UNITS/ML VIAL (FIVE THOUSAND) SUBCUT SCH ×3 (06:13→21:27)
[2017-10-29] MEDS: Acetaminophen TAB* 325 MG PO PRN ×3 (06:20→19:25)
[2017-10-29] MEDS: fentaNYL Patch Check Q Shift 1 NOTE SCH (07:06)
[2017-10-29 08:07] LABS: EGFR Non-African American 94.1 (>60); Hematocrit 28 % (35-47); Mean Corpuscular HGB Conc 32 g/dl (31-36); Mean Corpuscular Hemoglobin 24 pg (27-31); Mean Corpuscular Volume 75 fL (80-97); Mean Platelet Volume 8 um3 (7.4-10.4); Platelet Count 248 10^3/ul (150-450); Red Blood Count 3.71 10^6/ul (4.0-5.4); Red Cell Distribution Width 23 % (10.5-15); White Blood Count 6.6 10^3/ul (3.5-10.8)
[2017-10-29 08:44] LABS: ABS Basophils 0.1 10^3/ul (0-0.2); ABS Eosinophils 0.2 10^3/ul (0-0.6); ABS Lymphocytes 1.6 10^3/ul (1.0-4.8); ABS Monocytes 0.8 10^3/ul (0-0.8); ABS Neutrophils 3.9 10^3/ul (1.5-7.7); ABS Nucleated RBC 0 10^3/ul; Eosinophil % 3.2 % (0-6); Lymphocyte % 24.2 % (25-47); Nucleated Red Blood Cells % 0.1
[2017-10-29] MEDS: Docusate CAP* 100 MG PO SCH ×2 (09:28→21:29)
[2017-10-29] MEDS: Gabapentin CAP(*) 300 MG PO SCH ×3 (09:28→21:29)
[2017-10-29] MEDS: Metoprolol Tartrate TAB* 25 MG PO SCH ×2 (09:28→21:30)
[2017-10-29] MEDS: Calcium/Vitamin D TAB 250/125* TAB PO SCH (09:28)
[2017-10-29] MEDS: Aspirin EC Low Dose* 81 MG TAB.EC PO SCH (09:29)
[2017-10-29] MEDS: predniSONE TAB* 5 MG PO SCH (09:29)
[2017-10-29] MEDS: BuPROPion XL* 300 MG TAB.XL PO SCH (09:29)
[2017-10-29] MEDS: Potassium Chlor TAB* 20 MEQ TAB.ER PO SCH (09:29)
[2017-10-29] MEDS: Famotidine TAB* 20 MG PO SCH ×2 (09:29→21:29)
[2017-10-29] MEDS: FORTEO 20 MCG SUBCUT SCH (09:36)
--- NOTE | 2017-10-29 12:23 | PN ---
Progress Note Date of Service: 10/29/17 Note: NAEL JAUREGUI was visited. Nursing and therapy notes read and reviewed. No chest pain, shortness of breath or abdominal pain. Daughter is here this morning as well. Current Medications: Active Medications Generic Name Dose Route Start Last Admin Trade Name Freq PRN Reason Stop Dose Admin Acetaminophen 650 mg 10/27/17 13:10 10/29/17 06:20 Tylenol Tab* PO 650 mg Q6H PRN Administration FEVER/PAIN Aspirin 81 mg 10/28/17 09:00 10/29/17 09:29 Aspirin Ec Low Dose* PO 81 mg DAILY ORIN Administration Atorvastatin Calcium 20 mg 10/27/17 17:00 10/28/17 17:40 Lipitor* PO 20 mg 1700 ORIN Administration Bupropion HCl 300 mg 10/28/17 09:00 10/29/17 09:29 Bupropion Xl* PO 300 mg DAILY ORIN Administration Protocol Calcium Carbonate 500 mg 10/28/17 14:45 10/29/17 09:32 Tums* PO 500 mg Q4H PRN Administration DYSPEPSIA Calcium/Vitamin D 2 tab 10/28/17 09:00 10/29/17 09:28 Oscal D Tab 250/125* PO 2 tab DAILY ORIN Administration Docusate Sodium 100 mg 10/27/17 21:00 10/29/17 09:28 Colace Cap* PO 100 mg BID ORIN Administration Famotidine 20 mg 10/27/17 21:00 10/29/17 09:29 Pepcid Tab* PO 20 mg BID ORIN Administration Fentanyl 50 mcg 10/27/17 14:00 10/27/17 14:20 Duragesic Patch 50 Mcg/Hr* TRANSDERM 50 mcg Q72H ORIN Administration Gabapentin 300 mg 10/27/17 14:00 10/29/17 09:28 Neurontin Cap(*) PO 300 mg TID ORIN Administration Heparin Sodium (Porcine) 5,000 units 10/27/17 14:00 10/29/17 06:13 Heparin Vial(*) SUBCUT 5,000 units Q8HR ORIN Administration Levothyroxine Sodium 75 mcg 10/28/17 06:00 10/29/17 06:13 Synthroid Tab* PO 75 mcg DAILY@0600 ORIN Administration Magnesium Hydroxide 30 ml 10/27/17 13:10 Milk Of Magnesia Liq* PO Q6H PRN CONSTIPATION Metoprolol Tartrate 25 mg 10/27/17 21:00 10/29/17 09:28 Lopressor Tab* PO 25 mg BID ORIN Administration Pto: Forteo 20 Mcg ( 20 mcg 10/28/17 09:00 10/29/17 09:36 0.08 Ml) Injection SUBCUT 20 mcg DAILY ORIN Administration Omeprazole 20 mg 10/28/17 06:00 10/29/17 06:13 Prilosec Cap* PO 20 mg 0600 ORIN Administration Oxycodone HCl 5 mg 10/27/17 13:30 10/29/17 09:29 Roxycodone Tab* PO 5 mg Q4H PRN Administration PAIN - MODERATE TO SEVERE Pharmacy Profile Note 1 note 10/27/17 19:00 10/29/17 07:06 Fentanyl Patch Check Q Shift N/A 1 note 0700,1900 ORIN Administration Potassium Chloride 20 meq 10/28/17 09:00 10/29/17 09:29 Klor Con Er Tab* PO 20 meq DAILY ORIN Administration Prednisone 5 mg 10/28/17 09:00 10/29/17 09:29 Deltasone Tab* PO 5 mg DAILY ORIN Administration Senna 2 tab 10/27/17 13:10 Senokot Tab* PO BEDTIME PRN CONSTIPATION Vital Signs: Vital Signs Temp Pulse Resp BP Pulse Ox 98.4 F 92 16 117/50 92 10/29/17 06:05 10/29/17 06:05 10/29/17 11:25 10/29/17 06:05 10/29/17 06:05 Lab Results: Laboratory Results - last 24 hr 10/29/17 10/29/17 07:27 07:27 WBC 6.6 RBC 3.71 L Hgb 9.0 L Hct 28 L MCV 75 L MCH 24 L MCHC 32 RDW 23 H Plt Count 248 MPV 8 Neut % (Auto) 59.2 Lymph % (Auto) 24.2 L Crowley % (Auto) 12.5 H Eos % (Auto) 3.2 Baso % (Auto) 0.9 Absolute Neuts (auto) 3.9 Absolute Lymphs (auto) 1.6 Absolute Monos (auto) 0.8 Absolute Eos (auto) 0.2 Absolute Basos (auto) 0.1 Absolute Nucleated RBC 0 Nucleated RBC % 0.1 Polychromasia 1+ Anisocytosis 2+ Sodium 132 L Potassium 4.0 Chloride 99 L Carbon Dioxide 29 Anion Gap 4 BUN 11 Creatinine 0.62 Est GFR ( Amer) 121.0 Est GFR (Non-Af Amer) 94.1 BUN/Creatinine Ratio 17.7 Glucose 87 Calcium 9.7 Total Bilirubin 0.60 AST 30 ALT 16 Alkaline Phosphatase 135 H Total Protein 6.1 L Albumin 2.3 L Globulin 3.8 Albumin/Globulin Ratio 0.6 L Exam: GEN: no acute distress. Alert and appropriate. NECK: immobilized in collar LUNGS: clear bilaterally HEART: regular rate and rhythm ABDOMEN: +BS, Soft, non-tender, non-distended EXTREMITIES: Deformities in hands. Very limited shoulder ROM with pain. Left greater than right knee with OA changes and rests in valgus. Patient reports this is chronic. NEURO: Not quite antigravity in her UE's and also limited by pain and arthritis. Assessment/Plan: 72yo woman with RA s/p Occiput to T4 fusion with known cervical myelopathy and also has a T7 compression fx. 1. Cervical fusion-Occiput to T4: [place] AAT. PT/OT. 2. Cervical Myelopathy: PT/OT. gabapentin 3. Rheumatoid Arthritis: Prednisone 4. Osteoporsis: Forteo 5. GERD: Omeprazole/Pepcid 6. Hypothyroidism: Synthroid 7. Advanced directives: Patient voided her MOLST and is full code 8. DVT Prophylaxis: Heparin 9. History of NSTEMI/CAD: ASA/BetaBlocker/Lipitor 10. Analgesia: Fentanyl Patch/Oxycodone/Gabapentin 11. Anemia: recheck cbc in am for stability. 12. Dispo/LOS: interdisciplinary plan of care meeting today. I d/w pt and daughter will have to see if she can make a reasonable rate of improvement to justify acute inpatient rehab. They understand this and if she needs to go somewhere else prefer [facility]. 10/29/17 12:23
--- NOTE | 2017-10-29 12:42 | PMRUTEAM ---
PMRU: Goals Current Status: Nursing: Current Status Skin Deviations [Sacrum] Pressure Ulcer Skin Deviations [Cervical Incision Spine] Skin Deviation Description [ 1. 1cm x1cm, yellow slough noted Sacrum] 2. 2.2 x 2.3 cm. wound base with granulation. 1.2 cm tunneling toward the Left. Skin Deviation Description [ open to air - well healed Cervical Spine] Wound Stage [Sacrum] II Physical Therapy: Current Status Bed Mobility Assistance 2 Max A Transfer Moblility Assistance Mod A Ambulation Assistance Unable Ambulation Assistive Devices None Stairs Assistance Not Tested Curb Not Tested Wheelchair Distance (ft) 25 Occupational Therapy: Current Status Upper Body Dressing Max Asst Lower Body Dressing Total Assist,2 Person Assist Bathing Total Assist,2 Person Assist Toileting Total Assist,2 Person Assist Toilet Transfer 2 min A Eating Max Asst Instrumental ADL Total assistance. Rec Therapy: Current Status Summary of Assessment and Pt. was open to conversation. Appeared tired but Clinical Impression was very engaged in talking about her life. Pt. identified with many leisure interests and active involvement in them prior to admission. Pt. was interested in craft activities and groups while on the unit. Pt. expressed enjoying her life as well. Treatment Goals Pt. will engage in leisure activities while on the unit. Treatment Plan Provide RT services and encourage involvement. Social Work: Current Status Discharge Plan [facility] and family support Potential for Family Training pt's daughters are attentive and involved Anticipated Discharge Home Destination Discharge With home care svs and family support Goals: Physical Therapy: Initial Goals Bed Mobility Assistance Independent Transfer Mobility Assistance Independent Ambulation Independent in wheelchair Ambulation Recommended Devices MWC using feet versus electric Ambulation Distance 50 Wheelchair Propulsion Ability Independent Wheelchair Distance (ft) 50 Occupational Therapy: Initial Goals Goals to be Completed in (Days 5-7 ) Upper Body Bathing Routine Maximal Assist Lower Body Bathing Routine Total Assist Upper Body Dressing Routine Maximal Assist Lower Body Dressing Routine Total Assist Toilet Hygeine and Clothing Total Assist Management Routine Toilet Transfer Routine Minimal Contact Assist Toilet Transfer Assistive gait belt Devices Tub Transfer Routine Minimal Contact Assist Tub Trasnfer Assistive Devices tub transfer bench, gait belt Functional Transfers for ADL Minimal Contact Assist Functional Transfers for ADl gait belt Assistive Devices Grooming Routine Moderate Assist Feeding Routine Moderate Assist,Maximal Assist Light Housekeeping Tasks Total Assist Social Work: Goals Discharge Plan return home to apartment in [place] w/ [employer] and family support Potential for Family Training pt's daughters are attentive and involved Anticipated Discharge Home Destination Discharge With home care svs and family support Care Plan: Care Plan ADL's - Improve/Maintain Start: 10/27/17 17:22 Freq: QSHIFT Status: Active Target: Protocol: Activity Type Activity Date Activity User E-Sign Co-Sign Detail Recorded Client Recorded Date Recorded By Document 10/29/17 10:40 [id number] 10/29/17 10:40 [id number] 10/29/17 10:40 PMRU Outcome: ADL's/ADL Transfers Orders/Interventions Occupational Therapy Evaluation & Treatment Communication Tool in Patient Room Device Yes Patient to receive OT 5x/wk for 60-120 Therex min/day Self Care Management Group Therapy Neuromuscular ReEducation UE/LE ADL's with Assist Yes: max/total A ADL Transfers with Assist Yes: min A Toileting: Transfers,Clothing Management Yes: max/total ,Hygeine w/Assist A hygiene/ clothing mmgt; min A transfers Light Kitchen/Laundry w/Assist No Progression Toward Outcome/Goals Not Progressing Outcome/Goals Met Pt's transfers are showing gradual improvement. This is the one area she has potential to make progress. She has poor rehab potential in all other areas of her self-care routine. [employer] will express concerns in IPOC/team meeting today. Cardiovascular- Improve/Maintain Start: 10/27/17 17:22 Freq: QSHIFT Status: Active Target: Protocol: Activity Type Activity Date Activity User E-Sign Co-Sign Detail Recorded Client Recorded Date Recorded By Document 10/29/17 00:31 [id number] 10/29/17 00:33 [id number] 10/29/17 00:31 PMRU Outcome: Cardiovascular Vital Signs q Shift for 48hrs Then BID Yes Daily Weight Ordered No Current Cardiovascular Outcome/Goal Maintain/ Achieve Baseline HR, BP , Perfusion Maintain/ Improve Perfusion Maintain/ Achieve Hemodynamic Stability Progression Toward Outcome/Goal Progressing DVT Prophylaxis- Improve/Maintain Start: 10/27/17 17:22 Freq: QSHIFT Status: Active Target: Protocol: Activity Type Activity Date Activity User E-Sign Co-Sign Detail Recorded Client Recorded Date Recorded By Document 10/29/17 00:31 [id number] 10/29/17 00:33 [id number] 10/29/17 00:31 PMRU Outcome: DVT Prophylaxis Outcome/Goals Remains Free of DVT Free of complications from current DVT Progression Toward Outcome/Goals Progressing Discharge Planning - Improve/Maintain Start: 10/27/17 17:22 Freq: QSHIFT Status: Active Target: Protocol: Activity Type Activity Date Activity User E-Sign Co-Sign Detail Recorded Client Recorded Date Recorded By Document 10/29/17 00:31 [id number] 10/29/17 00:33 [id number] 10/29/17 00:31 PMRU Outcome: Discharge Planning Update Patient Family No Outcome/Goals Demonstrates Understanding of Discharge Plan Progression Toward Outcome/Goals Progressing Education-Improve/Maintain Start: 10/27/17 17:22 Freq: QSHIFT Status: Active Target: Protocol: Activity Type Activity Date Activity User E-Sign Co-Sign Detail Recorded Client Recorded Date Recorded By Document 10/29/17 00:31 [id number] [id number] 10/29/17 00:33 [id number] 10/29/17 00:31 PMRU Outcome: Education Outcome/Goals Demonstrates Skills Encourage Questions Progression Toward Outcome/Goals Progressing Pain/Comfort- Improve/Maintain Start: 10/27/17 17:22 Freq: QSHIFT Status: Active Target: Protocol: Activity Type Activity Date Activity User E-Sign Co-Sign Detail Recorded Client Recorded Date Recorded By Document 10/29/17 00:31 [id number] 10/29/17 00:33 [id number] 10/29/17 00:31 PMRU Outcome: Pain/Comfort Outcome/Goals Demonstrates Knowledge and Use of Available Comfort Measures Achieves Acceptable Comfort/Pain Level as Determined by Patient/Condit Progression Toward Outcome/Goals Progressing Outcome/Goals Met Comment pt 6/10 pain, does not want to be repositioned, waiting for next available pain medication dose Respiratory - Improve/Maintain Start: 10/27/17 17:22 Freq: QSHIFT Status: Active Target: Protocol: Activity Type Activity Date Activity User E-Sign Co-Sign Detail Recorded Client Recorded Date Recorded By Document 10/29/17 00:31 [id number] [email or web address] 10/29/17 00:33 [id number] 10/29/17 00:31 PMRU Outcome: Respiratory Does Patient Have a Trach No Outcome/Goals Maintain/ Improve Baseline Respiratory Status Progression Toward Outcome/Goals Progressing Safety- Improve/Maintain Start: 10/27/17 17:22 Freq: QSHIFT Status: Active Target: Protocol: Activity Type Activity Date Activity User E-Sign Co-Sign Detail Recorded Client Recorded Date Recorded By Document 10/29/17 00:31 [id number] 10/29/17 00:33 [id number] 10/29/17 00:31 PMRU Outcome: Safety Outcome/Goals Cooperates with Safety Measures for Least Restrictive Environment Progression Toward Outcome/Goals Progressing Skin- Improve/Maintain Start: 10/27/17 17:22 Freq: QSHIFT Status: Active Target: Protocol: Activity Type Activity Date Activity User E-Sign Co-Sign Detail Recorded Client Recorded Date Recorded By Document 10/29/17 00:31 [id number] 10/29/17 00:33 [id number] 10/29/17 00:31 PMRU Outcome: Skin Skin Risk Level Medium Outcome/Goals Free from Decubitus Progression Toward Outcome/Goals Not Progressing Medicine Note: Length of Stay: [2 weeks] Anticipated Discharge Destination: Home Tentative Discharge Date: [11/12/17] Discharged to: [home pending progress next few days with help]
[2017-10-29] MEDS: Atorvastatin* 20 MG TAB PO SCH (17:25)
[2017-10-30] MEDS: oxyCODONE TAB* 5 MG TAB PO PRN ×5 (01:50→21:37)
[2017-10-30] MEDS: Heparin VIAL(*) 5000 UNITS/ML VIAL (FIVE THOUSAND) SUBCUT SCH ×3 (05:11→21:38)
[2017-10-30] MEDS: Levothyroxine TAB* 75 MCG TAB PO SCH (05:11)
[2017-10-30] MEDS: Omeprazole CAP* 20 MG PO SCH (05:11)
[2017-10-30] MEDS: Acetaminophen TAB* 325 MG PO PRN ×3 (05:14→23:03)
[2017-10-30] MEDS: fentaNYL Patch Check Q Shift 1 NOTE SCH ×2 (07:10→19:28)
[2017-10-30 07:21] LABS: ABS Basophils 0.1 10^3/ul (0-0.2); ABS Eosinophils 0.4 10^3/ul (0-0.6); ABS Lymphocytes 1.7 10^3/ul (1.0-4.8); ABS Monocytes 1.1 10^3/ul (0-0.8); ABS Neutrophils 4.2 10^3/ul (1.5-7.7); ABS Nucleated RBC 0 10^3/ul; Eosinophil % 4.9 % (0-6); Hematocrit 28 % (35-47); Lymphocyte % 23.2 % (25-47); Mean Corpuscular HGB Conc 32 g/dl (31-36); Mean Corpuscular Hemoglobin 24 pg (27-31); Mean Corpuscular Volume 75 fL (80-97); Mean Platelet Volume 8 um3 (7.4-10.4); Nucleated Red Blood Cells % 0.1; Platelet Count 229 10^3/ul (150-450); Red Blood Count 3.69 10^6/ul (4.0-5.4); Red Cell Distribution Width 23 % (10.5-15); White Blood Count 7.4 10^3/ul (3.5-10.8)
[2017-10-30] MEDS: BuPROPion XL* 300 MG TAB.XL PO SCH (08:00)
[2017-10-30] MEDS: Famotidine TAB* 20 MG PO SCH ×2 (08:00→21:37)
[2017-10-30] MEDS: predniSONE TAB* 5 MG PO SCH (08:00)
[2017-10-30] MEDS: Potassium Chlor TAB* 20 MEQ TAB.ER PO SCH (08:02)
[2017-10-30] MEDS: Calcium/Vitamin D TAB 250/125* TAB PO SCH (08:02)
[2017-10-30] MEDS: Docusate CAP* 100 MG PO SCH ×2 (08:02→21:37)
[2017-10-30] MEDS: Aspirin EC Low Dose* 81 MG TAB.EC PO SCH (08:02)
[2017-10-30] MEDS: Calcium Carbonate CHEW TAB* 500 MG (TUMS) PO PRN (08:05)
[2017-10-30] MEDS: Gabapentin CAP(*) 300 MG PO SCH ×3 (08:05→21:37)
[2017-10-30] MEDS: Metoprolol Tartrate TAB* 25 MG PO SCH ×2 (08:05→21:37)
[2017-10-30] MEDS: FORTEO 20 MCG SUBCUT SCH (08:08)
[2017-10-30 08:28] LABS: Monocytes % 2 % (0-7)
[2017-10-30] MEDS ORDERED: Polyethylene Glycol 3350* 17 GM PACKET PO PRN (10:02)
--- NOTE | 2017-10-30 10:11 | PN ---
Progress Note Date of Service: 10/30/17 Note: NAEL JAUREGUI was visited. Nursing and therapy notes read and reviewed. She has not has a BM in a few days and has used miralax in the past. Also has a sore on her upper edentulous gum and would like some medication for it. She has has her dentures out a few days. No chest pain, shortness of breath or abdominal pain. She thought therapy yesterday was a lot for her. She is not used to doing that much in her prior setting and she is sore. Current Medications: Active Medications Generic Name Dose Route Start Last Admin Trade Name Freq PRN Reason Stop Dose Admin Acetaminophen 650 mg 10/27/17 13:10 10/30/17 05:14 Tylenol Tab* PO 650 mg Q6H PRN Administration FEVER/PAIN Aspirin 81 mg 10/28/17 09:00 10/30/17 08:02 Aspirin Ec Low Dose* PO 81 mg DAILY ORIN Administration Atorvastatin Calcium 20 mg 10/27/17 17:00 10/29/17 17:25 Lipitor* PO 20 mg 1700 ORIN Administration Benzocaine 1 applic 10/30/17 10:02 Baby Orajel 7.5%* TOPICAL QID PRN mouth pain Bupropion HCl 300 mg 10/28/17 09:00 10/30/17 08:00 Bupropion Xl* PO 300 mg DAILY ORIN Administration Protocol Calcium Carbonate 500 mg 10/28/17 14:45 10/30/17 08:05 Tums* PO 500 mg Q4H PRN Administration DYSPEPSIA Calcium/Vitamin D 2 tab 10/28/17 09:00 10/30/17 08:02 Oscal D Tab 250/125* PO 2 tab DAILY ORIN Administration Docusate Sodium 100 mg 10/27/17 21:00 10/30/17 08:02 Colace Cap* PO 100 mg BID ORIN Administration Famotidine 20 mg 10/27/17 21:00 10/30/17 08:00 Pepcid Tab* PO 20 mg BID ORIN Administration Fentanyl 50 mcg 10/27/17 14:00 10/27/17 14:20 Duragesic Patch 50 Mcg/Hr* TRANSDERM 50 mcg Q72H ORIN Administration Gabapentin 300 mg 10/27/17 14:00 10/30/17 08:05 Neurontin Cap(*) PO 300 mg TID ORIN Administration Heparin Sodium (Porcine) 5,000 units 10/27/17 14:00 10/30/17 05:11 Heparin Vial(*) SUBCUT 5,000 units Q8HR ORIN Administration Levothyroxine Sodium 75 mcg 10/28/17 06:00 10/30/17 05:11 Synthroid Tab* PO 75 mcg DAILY@0600 ORIN Administration Magnesium Hydroxide 30 ml 10/27/17 13:10 Milk Of Magnesia Liq* PO Q6H PRN CONSTIPATION Metoprolol Tartrate 25 mg 10/27/17 21:00 10/30/17 08:05 Lopressor Tab* PO 25 mg BID ORIN Administration Pto: Forteo 20 Mcg ( 20 mcg 10/28/17 09:00 10/30/17 08:08 0.08 Ml) Injection SUBCUT 20 mcg DAILY ORIN Administration Omeprazole 20 mg 10/28/17 06:00 10/30/17 05:11 Prilosec Cap* PO 20 mg 0600 ORIN Administration Oxycodone HCl 5 mg 10/27/17 13:30 10/30/17 07:59 Roxycodone Tab* PO 5 mg Q4H PRN Administration PAIN - MODERATE TO SEVERE Pharmacy Profile Note 1 note 10/27/17 19:00 10/30/17 07:10 Fentanyl Patch Check Q Shift N/A 1 note 0700,1900 ORIN Administration Polyethylene Glycol/Electrolytes 17 gm 10/30/17 10:02 Miralax* PO DAILY PRN CONSTIPATION Potassium Chloride 20 meq 10/28/17 09:00 10/30/17 08:02 Klor Con Er Tab* PO 20 meq DAILY ORIN Administration Prednisone 5 mg 10/28/17 09:00 10/30/17 08:00 Deltasone Tab* PO 5 mg DAILY ORIN Administration Senna 2 tab 10/27/17 13:10 Senokot Tab* PO BEDTIME PRN CONSTIPATION Vital Signs: Vital Signs Temp Pulse Resp BP Pulse Ox 98.1 F 87 18 115/51 95 10/30/17 05:33 10/30/17 05:33 10/30/17 08:05 10/30/17 05:33 10/29/17 19:00 Lab Results: Laboratory Results - last 24 hr 10/30/17 07:06 WBC 7.4 RBC 3.69 L Hgb 9.0 L Hct 28 L MCV 75 L MCH 24 L MCHC 32 RDW 23 H Plt Count 229 MPV 8 Neut % (Auto) 56.5 Lymph % (Auto) 23.2 L Coffee % (Auto) 14.3 H Eos % (Auto) 4.9 Baso % (Auto) 1.1 Absolute Neuts (auto) 4.2 Absolute Lymphs (auto) 1.7 Absolute Monos (auto) 1.1 H Absolute Eos (auto) 0.4 Absolute Basos (auto) 0.1 Absolute Nucleated RBC 0 Neutrophils % 68 Lymphocytes % 24 L Reactive Lymphs % 1 Monocytes % 2 Eosinophils % 4 Basophils % 1 Nucleated RBC % 0.1 Abs Neuts (Manual) 5.0 Abs Lymphs (Manual) 1.8 Abs Monocytes (Manual) 0.1 Absolute Eos (Manual) 0.3 Abs Basophils (Manual) 0.1 Normal RBC Morphology Not Reportable Polychromasia 1+ Hypochromasia 1+ Microcytosis 1+ Exam: GEN: no acute distress. Alert and appropriate. O/P: she has an apthous ulcer on her upper incisor gum area. No drainage, swelling or erythema. NECK: immobilized in collar LUNGS: clear bilaterally HEART: regular rate and rhythm ABDOMEN: +BS, Soft, non-tender, non-distended EXTREMITIES: Deformities in hands. Very limited shoulder and elbow ROM with pain. Left greater than right knee with OA changes and rests in valgus. NEURO: Antigravity in her UE's, but can barely get her finger to her mouth to point out her sore. A lot of this is limited by pain and restricted ROM. Sensation intact x4. Assessment/Plan: 72yo woman with RA s/p Occiput to T4 fusion with known cervical myelopathy and also has a T7 compression fx. 1. Cervical fusion-Occiput to T4: [place] J AAT. PT/OT. 2. Cervical Myelopathy: PT/OT. gabapentin 3. Rheumatoid Arthritis: Prednisone 4. Osteoporsis: Forteo 5. GERD: Omeprazole/Pepcid 6. Hypothyroidism: Synthroid 7. Advanced directives: Patient voided her MOLST and is full code 8. DVT Prophylaxis: Heparin 9. History of NSTEMI/CAD: ASA/BetaBlocker/Lipitor 10. Analgesia: Fentanyl Patch/Oxycodone/Gabapentin 11. Anemia: stable. 12. Constipation: add miralax prn 13. Mouth sore: add benzocaine oral prn. I advised her if she had to use dentures to eat it was ok, but then to take them out until this sore was better. 14. Dispo/LOS: After IPOC yesterday, it is likely she will need a more prolonged , less intense rehab. I d/w pt and SW also with daughter. They prefer [facility] if available. 10/30/17 10:11
[2017-10-30] MEDS: fentaNYL PATCH 50 MCG/HR TRANSDERM SCH (13:58)
[2017-10-30] MEDS: Atorvastatin* 20 MG TAB PO SCH (17:18)
[2017-10-31] MEDS: oxyCODONE TAB* 5 MG TAB PO PRN ×5 (02:27→20:05)
[2017-10-31] MEDS: Omeprazole CAP* 20 MG PO SCH (06:22)
[2017-10-31] MEDS: Levothyroxine TAB* 75 MCG TAB PO SCH (06:22)
[2017-10-31] MEDS: Heparin VIAL(*) 5000 UNITS/ML VIAL (FIVE THOUSAND) SUBCUT SCH ×3 (06:25→20:49)
[2017-10-31] MEDS: fentaNYL Patch Check Q Shift 1 NOTE SCH ×3 (07:06→22:06)
[2017-10-31] MEDS: Famotidine TAB* 20 MG PO SCH ×2 (08:45→20:05)
[2017-10-31] MEDS: Metoprolol Tartrate TAB* 25 MG PO SCH ×2 (08:45→20:05)
[2017-10-31] MEDS: Potassium Chlor TAB* 20 MEQ TAB.ER PO SCH (08:46)
[2017-10-31] MEDS: Gabapentin CAP(*) 300 MG PO SCH ×3 (08:46→20:05)
[2017-10-31] MEDS: Aspirin EC Low Dose* 81 MG TAB.EC PO SCH (08:46)
[2017-10-31] MEDS: BuPROPion XL* 300 MG TAB.XL PO SCH (08:46)
[2017-10-31] MEDS: predniSONE TAB* 5 MG PO SCH (08:46)
[2017-10-31] MEDS: Calcium/Vitamin D TAB 250/125* TAB PO SCH (08:46)
[2017-10-31] MEDS: Acetaminophen TAB* 325 MG PO PRN ×3 (08:47→23:28)
[2017-10-31] MEDS: FORTEO 20 MCG SUBCUT SCH (08:53)
[2017-10-31] MEDS: Docusate CAP* 100 MG PO SCH ×2 (09:19→20:16)
--- NOTE | 2017-10-31 10:50 | PN ---
Progress Note Date of Service: 10/31/17 Note: NAEL JAUREGUI was visited. Nursing and therapy notes read and reviewed. She has had a productive cough since pneumonia at the end of August. When she left [facility] [place] [facility] at that time she has 5 days left of [facility]. Since that time, she says intermittently she has used oxygen at night. Staff notes owens colored sputum. No chest pain, shortness of breath or abdominal pain. Had BM after miralax yesterday. Current Medications: Active Medications Generic Name Dose Route Start Last Admin Trade Name Freq PRN Reason Stop Dose Admin Acetaminophen 650 mg 10/27/17 13:10 10/31/17 08:47 Tylenol Tab* PO 650 mg Q6H PRN Administration FEVER/PAIN Aspirin 81 mg 10/28/17 09:00 10/31/17 08:46 Aspirin Ec Low Dose* PO 81 mg DAILY ORIN Administration Atorvastatin Calcium 20 mg 10/27/17 17:00 10/30/17 17:18 Lipitor* PO 20 mg 1700 ORIN Administration Benzocaine 1 applic 10/30/17 10:02 Baby Orajel 7.5%* TOPICAL QID PRN mouth pain Bupropion HCl 300 mg 10/28/17 09:00 10/31/17 08:46 Bupropion Xl* PO 300 mg DAILY ORIN Administration Protocol Calcium Carbonate 500 mg 10/28/17 14:45 10/30/17 08:05 Tums* PO 500 mg Q4H PRN Administration DYSPEPSIA Calcium/Vitamin D 2 tab 10/28/17 09:00 10/31/17 08:46 Oscal D Tab 250/125* PO 2 tab DAILY ORIN Administration Docusate Sodium 100 mg 10/27/17 21:00 10/31/17 09:19 Colace Cap* PO Not Given BID ORIN Famotidine 20 mg 10/27/17 21:00 10/31/17 08:45 Pepcid Tab* PO 20 mg BID ORIN Administration Fentanyl 50 mcg 10/27/17 14:00 10/30/17 13:58 Duragesic Patch 50 Mcg/Hr* TRANSDERM 50 mcg Q72H ORIN Administration Gabapentin 300 mg 10/27/17 14:00 10/31/17 08:46 Neurontin Cap(*) PO 300 mg TID ORIN Administration Heparin Sodium (Porcine) 5,000 units 10/27/17 14:00 10/31/17 06:25 Heparin Vial(*) SUBCUT 5,000 units Q8HR ORIN Administration Levothyroxine Sodium 75 mcg 10/28/17 06:00 10/31/17 06:22 Synthroid Tab* PO 75 mcg DAILY@0600 ORIN Administration Magnesium Hydroxide 30 ml 10/27/17 13:10 Milk Of Magnesia Liq* PO Q6H PRN CONSTIPATION Metoprolol Tartrate 25 mg 10/27/17 21:00 10/31/17 08:45 Lopressor Tab* PO 25 mg BID ORIN Administration Pto: Forteo 20 Mcg ( 20 mcg 10/28/17 09:00 10/31/17 08:53 0.08 Ml) Injection SUBCUT 20 mcg DAILY ORIN Administration Omeprazole 20 mg 10/28/17 06:00 10/31/17 06:22 Prilosec Cap* PO 20 mg 0600 ORIN Administration Oxycodone HCl 5 mg 10/27/17 13:30 10/31/17 06:25 Roxycodone Tab* PO 5 mg Q4H PRN Administration PAIN - MODERATE TO SEVERE Pharmacy Profile Note 1 note 10/27/17 19:00 10/31/17 07:06 Fentanyl Patch Check Q Shift N/A 1 note 0700,1900 [facility] Administration Polyethylene Glycol/Electrolytes 17 gm 10/30/17 10:02 10/30/17 11:20 Miralax* PO 17 gm DAILY PRN Administration CONSTIPATION Potassium Chloride 20 meq 10/28/17 09:00 10/31/17 08:46 Klor Con Er Tab* PO 20 meq DAILY ORIN Administration Prednisone 5 mg 10/28/17 09:00 10/31/17 08:46 Deltasone Tab* PO 5 mg DAILY ORIN Administration Senna 2 tab 10/27/17 13:10 Senokot Tab* PO BEDTIME PRN CONSTIPATION Vital Signs: Vital Signs Temp Pulse Resp BP Pulse Ox 98.0 F 83 18 106/58 89 10/31/17 07:00 10/31/17 07:00 10/31/17 08:46 10/31/17 06:20 10/31/17 07:00 Exam: GEN: no acute distress. Alert and appropriate. O/P: she has an apthous ulcer on her upper incisor gum area. No drainage, swelling or erythema. NECK: immobilized in collar LUNGS: clear bilaterally. Thick owens sputum observed. HEART: regular rate and rhythm ABDOMEN: +BS, Soft, non-tender, non-distended EXTREMITIES: Deformities in hands. Very limited shoulder and elbow ROM with pain. Left greater than right knee with OA changes and rests in valgus. NEURO: Antigravity in her UE's, but can barely get her finger to her mouth. Sensation intact x4. Assessment/Plan: 72yo woman with RA s/p Occiput to T4 fusion with known cervical myelopathy and also has a T7 compression fx. 1. Cervical fusion-Occiput to T4: Dustin Pastor AAT. PT/OT. 2. Cervical Myelopathy: PT/OT. gabapentin 3. Rheumatoid Arthritis: Prednisone 4. Osteoporsis: Forteo 5. GERD: Omeprazole/Pepcid 6. Hypothyroidism: Synthroid 7. Advanced directives: Patient voided her MOLST and is full code 8. DVT Prophylaxis: Heparin 9. History of NSTEMI/CAD: ASA/BetaBlocker/Lipitor 10. Analgesia: Fentanyl Patch/Oxycodone/Gabapentin 11. Anemia: stable. 12. Constipation: miralax prn 13. Mouth sore: benzocaine oral prn. I advised her if she had to use dentures to eat it was ok, but then to take them out until this sore was better. 14. Productive cough s/p pneumonia about 2 months ago: She is not febrile, but oxygenation not great, which she says has been the case since pneumonia and used oxygen at night prn. Also had NSTEMI. Check chest x-ray. Sputum for culture and sensitivity. Oxygen prn. Incentive spirometer, which she will need help with. Consider role for bronchodilators prn. 15. Dispo/LOS: After IPOC yesterday, it is likely she will need a more prolonged , less intense rehab. I d/w pt and SW also with daughter. They prefer [facility] if available. 10/31/17 10:48
--- NOTE | 2017-10-31 12:27 | RAD ---
INDICATION: Productive cough COMPARISON: Chest x-ray dated September 05, 2017 TECHNIQUE: PA and lateral views of the chest were obtained. FINDINGS: The heart and mediastinum are normal in size and contour. There is interval development of linear density at the left lung base. There is faint patchy density seen along the medial aspect of the right lung base. More superiorly the lungs are adequately clear.. Transpedicular fixation screws and posterior rods overlying the lower cervical upper thoracic spine appear to be unchanged from the previous chest x-ray. There is no radiographic evidence of free air beneath the diaphragm IMPRESSION: DENSITY AT THE LEFT GREATER THAN RIGHT LUNG BASES COULD BE ATELECTASIS OR PNEUMONIA DEPENDING ON THE PATIENT'S CLINICAL PRESENTATION.
[2017-10-31] MEDS: Benzocaine (DENTAL) 7.5%* 10 GM TOP.GEL TOPICAL PRN (12:35)
[2017-10-31] MEDS: Atorvastatin* 20 MG TAB PO SCH (15:52)
[2017-11-01] MEDS: oxyCODONE TAB* 5 MG TAB PO PRN ×4 (03:49→16:15)
[2017-11-01] MEDS: Omeprazole CAP* 20 MG PO SCH (05:40)
[2017-11-01] MEDS: Levothyroxine TAB* 75 MCG TAB PO SCH (05:41)
[2017-11-01] MEDS: Heparin VIAL(*) 5000 UNITS/ML VIAL (FIVE THOUSAND) SUBCUT SCH ×3 (05:41→22:05)
[2017-11-01] MEDS: Acetaminophen TAB* 325 MG PO PRN ×2 (06:01→16:14)
[2017-11-01] MEDS: fentaNYL Patch Check Q Shift 1 NOTE SCH ×2 (07:11→18:41)
[2017-11-01] MEDS: Famotidine TAB* 20 MG PO SCH ×2 (08:10→20:08)
[2017-11-01] MEDS: BuPROPion XL* 300 MG TAB.XL PO SCH (08:10)
[2017-11-01] MEDS: Metoprolol Tartrate TAB* 25 MG PO SCH ×2 (08:10→20:09)
[2017-11-01] MEDS: Docusate CAP* 100 MG PO SCH ×2 (08:10→20:08)
[2017-11-01] MEDS: Gabapentin CAP(*) 300 MG PO SCH ×3 (08:10→20:08)
[2017-11-01] MEDS: Calcium/Vitamin D TAB 250/125* TAB PO SCH (08:10)
[2017-11-01] MEDS: predniSONE TAB* 5 MG PO SCH (08:10)
[2017-11-01] MEDS: Potassium Chlor TAB* 20 MEQ TAB.ER PO SCH (08:10)
[2017-11-01] MEDS: Aspirin EC Low Dose* 81 MG TAB.EC PO SCH (08:10)
[2017-11-01] MEDS: FORTEO 20 MCG SUBCUT SCH (09:41)
[2017-11-01] MEDS: Benzocaine (DENTAL) 7.5%* 10 GM TOP.GEL TOPICAL PRN (09:46)
--- NOTE | 2017-11-01 16:01 | PN ---
Progress Note Date of Service: 11/01/17 Note: NAEL JAUREGUI was visited. Therapy notes read and reviewed. She seems in good spirits, although notes she is doing a lot more than she had been. Current Medications: Active Medications Generic Name Dose Route Start Last Admin Trade Name Freq PRN Reason Stop Dose Admin Acetaminophen 650 mg 10/27/17 13:10 11/01/17 06:01 Tylenol Tab* PO 650 mg Q6H PRN Administration FEVER/PAIN Aspirin 81 mg 10/28/17 09:00 11/01/17 08:10 Aspirin Ec Low Dose* PO 81 mg DAILY ORIN Administration Atorvastatin Calcium 20 mg 10/27/17 17:00 10/31/17 15:52 Lipitor* PO 20 mg 1700 ORIN Administration Benzocaine 1 applic 10/30/17 10:02 11/01/17 09:46 Baby Orajel 7.5%* TOPICAL 1 applic QID PRN Administration mouth pain Bupropion HCl 300 mg 10/28/17 09:00 11/01/17 08:10 Bupropion Xl* PO 300 mg DAILY ORIN Administration Protocol Calcium Carbonate 500 mg 10/28/17 14:45 10/30/17 08:05 Tums* PO 500 mg Q4H PRN Administration DYSPEPSIA Calcium/Vitamin D 2 tab 10/28/17 09:00 11/01/17 08:10 Oscal D Tab 250/125* PO 2 tab DAILY ORIN Administration Docusate Sodium 100 mg 10/27/17 21:00 11/01/17 08:10 Colace Cap* PO 100 mg BID ORIN Administration Famotidine 20 mg 10/27/17 21:00 11/01/17 08:10 Pepcid Tab* PO 20 mg BID ORIN Administration Fentanyl 50 mcg 10/27/17 14:00 10/30/17 13:58 Duragesic Patch 50 Mcg/Hr* TRANSDERM 50 mcg Q72H ORIN Administration Gabapentin 300 mg 10/27/17 14:00 11/01/17 14:20 Neurontin Cap(*) PO 300 mg TID ORIN Administration Heparin Sodium (Porcine) 5,000 units 10/27/17 14:00 11/01/17 14:21 Heparin Vial(*) SUBCUT 5,000 units Q8HR ORIN Administration Levothyroxine Sodium 75 mcg 10/28/17 06:00 11/01/17 05:41 Synthroid Tab* PO 75 mcg DAILY@0600 ORIN Administration Magnesium Hydroxide 30 ml 10/27/17 13:10 Milk Of Magnesia Liq* PO Q6H PRN CONSTIPATION Metoprolol Tartrate 25 mg 10/27/17 21:00 11/01/17 08:10 Lopressor Tab* PO 25 mg BID ORIN Administration Pto: Forteo 20 Mcg ( 20 mcg 10/28/17 09:00 11/01/17 09:41 0.08 Ml) Injection SUBCUT 20 mcg DAILY ORIN Administration Omeprazole 20 mg 10/28/17 06:00 11/01/17 05:40 Prilosec Cap* PO 20 mg 0600 ORIN Administration Oxycodone HCl 5 mg 10/27/17 13:30 11/01/17 12:27 Roxycodone Tab* PO 5 mg Q4H PRN Administration PAIN - MODERATE TO SEVERE Pharmacy Profile Note 1 note 10/27/17 19:00 11/01/17 07:11 Fentanyl Patch Check Q Shift N/A 1 note 0700,1900 ORIN Administration Polyethylene Glycol/Electrolytes 17 gm 10/30/17 10:02 10/30/17 11:20 Miralax* PO 17 gm DAILY PRN Administration CONSTIPATION Potassium Chloride 20 meq 10/28/17 09:00 11/01/17 08:10 Klor Con Er Tab* PO 20 meq DAILY ORIN Administration Prednisone 5 mg 10/28/17 09:00 11/01/17 08:10 Deltasone Tab* PO 5 mg DAILY ORIN Administration Senna 2 tab 10/27/17 13:10 Senokot Tab* PO BEDTIME PRN CONSTIPATION Vital Signs: Vital Signs Temp Pulse Resp BP Pulse Ox 97.8 F 84 18 111/67 97 11/01/17 06:05 11/01/17 06:05 11/01/17 14:25 11/01/17 06:05 11/01/17 06:05 Lab Results: Laboratory Results - last 24 hr 10/29/17 10/30/17 07:27 07:06 Hem Pathologist Commnt Exam: GEN: no acute distress. Alert and appropriate. NECK: immobilized in collar LUNGS: clear bilaterally. Thick owens sputum observed. HEART: regular rate and rhythm ABDOMEN: +BS, Soft, non-tender, non-distended EXTREMITIES: Deformities in hands. Very limited shoulder and elbow ROM with pain. Left greater than right knee with valgus deformities. NEURO: Antigravity in her UE's, but can barely get her finger to her mouth. Sensation intact x4. Assessment/Plan: 1. Cervical fusion-Occiput to T4: Dustin ODOM. PT/OT. 2. Cervical Myelopathy: PT/OT. gabapentin 3. Rheumatoid Arthritis: Prednisone 4. Osteoporsis: Forteo 5. GERD: Omeprazole/Pepcid 6. Hypothyroidism: Synthroid 7. Advanced directives: Patient voided her MOLST and is full code 8. DVT Prophylaxis: Heparin 9. History of NSTEMI/CAD: ASA/BetaBlocker/Lipitor 10. Analgesia: Fentanyl Patch/Oxycodone/Gabapentin 11. Anemia: stable. 12. Constipation: miralax prn 13. Mouth sore: benzocaine oral prn. 14. Productive cough: She is not febrile, used oxygen at night prn since a bout of pneumonia. Oxygen prn. Incentive spirometer, which she will need help with. 15. Dispo/LOS: After IPOC , it is likely she will need a more prolonged, less intense rehab. Patient and daughter prefer [facility] if available. 11/01/17 16:02
[2017-11-01] MEDS: Atorvastatin* 20 MG TAB PO SCH (16:15)
[2017-11-02] MEDS: oxyCODONE TAB* 5 MG TAB PO PRN (04:45)
[2017-11-02] MEDS: Levothyroxine TAB* 75 MCG TAB PO SCH (05:08)
[2017-11-02] MEDS: Heparin VIAL(*) 5000 UNITS/ML VIAL (FIVE THOUSAND) SUBCUT SCH (05:08)
[2017-11-02] MEDS: Omeprazole CAP* 20 MG PO SCH (05:08)
[2017-11-02 05:43] VITALS: BP 132/62
[2017-11-02] MEDS: BuPROPion XL* 300 MG TAB.XL PO SCH (07:38)
[2017-11-02] MEDS: Acetaminophen TAB* 325 MG PO PRN (07:38)
[2017-11-02] MEDS: Calcium/Vitamin D TAB 250/125* TAB PO SCH (07:38)
[2017-11-02] MEDS: Gabapentin CAP(*) 300 MG PO SCH (07:38)
[2017-11-02] MEDS: predniSONE TAB* 5 MG PO SCH (07:38)
[2017-11-02] MEDS: Potassium Chlor TAB* 20 MEQ TAB.ER PO SCH (07:38)
[2017-11-02] MEDS: Docusate CAP* 100 MG PO SCH (07:38)
[2017-11-02] MEDS: Famotidine TAB* 20 MG PO SCH (07:38)
[2017-11-02] MEDS: Metoprolol Tartrate TAB* 25 MG PO SCH (07:38)
[2017-11-02] MEDS: Aspirin EC Low Dose* 81 MG TAB.EC PO SCH (07:38)
[2017-11-02] MEDS: fentaNYL Patch Check Q Shift 1 NOTE SCH (07:52)
[2017-11-02] MEDS: FORTEO 20 MCG SUBCUT SCH (10:04)
[2017-11-02] MEDS: Calcium Carbonate CHEW TAB* 500 MG (TUMS) PO PRN (10:32)
--- NOTE | 2017-11-02 13:31 | TRS ---
TRANSFER SUMMARY: DATE OF ADMISSION: 10/27/17 DATE OF DISCHARGE: 11/02/17 DISCHARGE DIAGNOSES: 1. Cervical myelopathy. 2. Status post fusion from occiput to T4. 3. Rheumatoid arthritis. 4. Osteoporosis. 5. Coronary artery disease, status post non-ST elevation myocardial infarction in August. 6. Gastroesophageal reflux disease. HISTORY OF PRESENT ILLNESS AND HOSPITAL COURSE: For complete history of the events leading up to her rehab stay, please see the history and physical dictated by me on 10/27/17. While on the rehab unit, the patient remained stable from a medical point of view. She had an occiput to T4 fusion with a C7 point osteotomy and T3, 4, and [address] Nunez in [place] on 10/20/17. She remained in a [place] J collar through her rehab stay. After admission, while working with the therapist it became apparent that the patient would be unable to return home in the short term as a result of her joint limitations from her rheumatoid arthritis combined with the immobilization of her cervical spine in the [place] J collar. As a result of the combination, she was unable to feed herself. It also became apparent that transferring out of bed and into a wheelchair in order to live independently would be unlikely in the short term. The patient refused to go back to [facility] where she had been, following her original cervical fusion in July. The patient is being transferred to [facility] to the jail facility there to do rehabilitation on a slower scale, so that she might return to independent living. The patient was seen by Physical Therapy and Occupational Therapy while on the rehab unit. With Physical Therapy at the time of admission, the patient was able to transfer with contact guard out of bed and into the wheelchair. She required 2 people in order to do bed mobility. She was unable to ambulate, but was able to take several steps in transfers. With occupational therapy at the time of admission, the patient was dependent in feeding, max assist for upper body dressing, total assistance for lower body dressing, min assist for toilet transfer, but total assistance for transfers. By the time of discharge the patient remained max assist for upper body dressing, total assist for lower body dressing, total assist for toileting , contact guard to min assist for toilet transfer. With physical therapy at the time of discharge, she was transferring with min assist, but required max assist for bed mobility. As mentioned, the patient is being transferred to [facility]. Discharge diet was regular. She does require total assistance for feeding. DISCHARGE MEDICATIONS: 1. Aspirin 81 mg daily. 2. Lipitor 20 mg daily. 3. Wellbutrin 300 mg daily. 4. Tums 500 mg every 4 hours as needed. 5. Os-Eron D, she takes 250/125, 2 tablets daily. 6. Pepcid 20 mg twice daily. 7. Fentanyl patch 50 mcg transdermally changing every 72 hours. 8. Gabapentin 300 mg 3 times a day. 9. Synthroid 75 mcg daily. 10. Lopressor 25 mg twice a day. 11. Forteo 20 mcg subcutaneously daily. 12. Omeprazole 20 mg daily. 13. Oxycodone 5 mg every 4 hours as needed. 14. MiraLAX 17 g orally daily. 15. Potassium chloride 20 mEq daily. 16. Prednisone 5 mg daily. 17. Senokot 2 tablets at bedtime. Services after discharge: She should have restorative physical therapy and occupational therapy. FOLLOWUP: She will need to follow up with her neurosurgeon, Dr. Jones Nunez , at the [facility]. She does have a followup appointment made for 11/22/17 at 2 p.m. [id number]/[facility] #: [id number] [facility]ITAL[facility]
== END 2017-11-02 12:30 | DRG 560 ==
LOC: PMRU 12:13
PROVIDERS: ADMIT Physical Medicine & Rehabilitation; ATTEND Physical Medicine & Rehabilitation
PROC: F07Z5ZZ Bed Mobility Treatment (ICD-10-PCS; principal; 2017-10-27)
PROC: F07Z9ZZ Gait Training/Functional Ambulation Treatment (ICD-10-PCS; 2017-10-27)
PROC: F07Z8ZZ Transfer Training Treatment (ICD-10-PCS; 2017-10-27)
PROC: F07Z4ZZ Wheelchair Mobility Treatment (ICD-10-PCS; 2017-10-27)
PROC: F08Z0ZZ Bathing/Showering Techniques Treatment (ICD-10-PCS; 2017-10-27)
PROC: F08Z1ZZ Dressing Techniques Treatment (ICD-10-PCS; 2017-10-27)
PROC: F08Z3ZZ Feeding/Eating Treatment (ICD-10-PCS; 2017-10-27)
DX: M80.88XD Other osteoporosis with current pathological fracture, vertebra(e), subsequent encounter for fracture with routine healing (principal); G95.29 Other cord compression; L89.309 Pressure ulcer of unspecified buttock, unspecified stage; J44.9 Chronic obstructive pulmonary disease, unspecified; M06.9 Rheumatoid arthritis, unspecified; I25.10 Atherosclerotic heart disease of native coronary artery without angina pectoris; T38.0X5D Adverse effect of glucocorticoids and synthetic analogues, subsequent encounter; X58.XXXD Exposure to other specified factors, subsequent encounter; E03.9 Hypothyroidism, unspecified; K13.79 Other lesions of oral mucosa; K21.9 Gastro-esophageal reflux disease without esophagitis; R05 Cough; K59.00 Constipation, unspecified; I25.2 Old myocardial infarction; Z87.891 Personal history of nicotine dependence; Z95.5 Presence of coronary angioplasty implant and graft; Z79.01 Long term (current) use of anticoagulants; Z79.82 Long term (current) use of aspirin; Z79.891 Long term (current) use of opiate analgesic; Z79.52 Long term (current) use of systemic steroids; Z79.899 Other long term (current) drug therapy
CPT/HCPCS: 36415; 71046; 80053; 85025; 85060; 87070; 87077; 87186; 87205; 87641; A9270-GY; J1644; J7512

== ENCOUNTER 2017-12-24 18:27 | Inpatient (IN) | payer MEDICARE, MEDICAID ==
--- NOTE | 2017-12-24 20:02 | RAD ---
INDICATION: Chest pain COMPARISON: Chest x-ray dated October 31, 2017 TECHNIQUE: Single AP portable view of the chest was obtained. FINDINGS: Image quality is compromised due to the relative inferiority of a portable chest x-ray. The heart and mediastinum exhibit normal size and contour. There is coarse calcification overlying the arch of the aorta. The lungs are grossly clear. There is no evidence of a large pleural effusion. Transpedicular posterior olya fixation involving the lower cervical and thoracic spine is again noted. IMPRESSION: No radiographic evidence for acute cardiopulmonary abnormality on this portable chest x-ray.
[2017-12-24 20:05] LABS: EGFR Non-African American 101.6 (>60)
[2017-12-24 20:17] LABS: Hematocrit 31 % (35-47); Mean Corpuscular HGB Conc 32 g/dl (31-36); Mean Corpuscular Hemoglobin 23 pg (27-31); Mean Platelet Volume 7.2 um3 (7.4-10.4); Platelet Count 332 10^3/ul (150-450); Red Blood Count 4.45 10^6/ul (4.0-5.4); Red Cell Distribution Width 19 % (10.5-15); White Blood Count 5.9 10^3/ul (3.5-10.8)
[2017-12-24 20:42] LABS: INR 1.05 (0.77-1.02)
[2017-12-24] MEDS ORDERED: Furosemide IV* 10 MG/ML VIAL (40 MG) IV ONE (21:05)
[2017-12-24] MEDS ORDERED: Nitroglycerin TAB 0.4 MG* 0.4 MG TAB SL ONE (21:09)
[2017-12-24 21:37] LABS: ABS Basophils 0 10^3/ul (0-0.2); ABS Eosinophils 0 10^3/ul (0-0.6); ABS Monocytes 0.5 10^3/ul (0-0.8); ABS Neutrophils 4.3 10^3/ul (1.5-7.7); ABS Nucleated RBC 0 10^3/ul; Eosinophil % 0.5 % (0-6); Lymphocyte % 17.4 % (25-47); Mean Corpuscular Volume 71 fL (80-97); Nucleated Red Blood Cells % 0
[2017-12-24 21:42] LABS: Urine Appearance Clear; Urine Blood Negative (Negative); Urine Color Yellow; Urine Ketones Negative (Negative); Urine Protein Negative (Negative); Urine Specific Gravity 1.005 (1.010-1.030); Urine Urobilinogen Negative (Negative)
[2017-12-24] MEDS ORDERED: Acetaminophen TAB* 325 MG PO PRN (22:10)
[2017-12-24] MEDS ORDERED: Albuterol 2.5 MG/3 ML NEB.SOL* (0.083%) INH PRN (22:10)
[2017-12-24] MEDS ORDERED: Melatonin 3 MG TAB PO PRN (22:11)
[2017-12-24] MEDS ORDERED: Ondansetron INJ* 2 MG/ML VIAL IV PRN (22:11)
[2017-12-24] MEDS ORDERED: Metoprolol Tartrate TAB* 25 MG PO ONE (22:12)
--- NOTE | 2017-12-24 22:30 | HP ---
H&P (Free Text) History and Physical: PCP: Samina Fuller MD Date/Time: 12/24/2017 2200 CC: chest pain HPI: Mrs Parks is a 72F HX NSTEMI Aug 2017 no cath & recommended medical management, PAOD, COPD, diastolic HF, DVT, HTN, HLD, RA, & hypothyroidism who presents tonight reporting generalized aching for the past 3 days w/o F/C, rigors, sweats, cough, congestion, rash, or change in bowel/bladder. This AM after awakening she developed a mild substernal non-radiating non-exertional chest pressure associated with nausea & SOB, but no emesis, palpitations, light- headedness, or sweating. She did have some spinning dizziness. These symptoms persisted most of the day prompting her to present for evaluation. She currently feels better, but not quite back to baseline. PMedHx CAD/NSTEMI 08/24/2017 PAOD COPD diastolic HF DVT rheumatoid arthritis HTN HLD hypothyroidism GERD depression/anxiety Ambulatory Orders Folic Acid TAB* [Folvite TAB*] 1 mg PO QAM 01/04/13 Docusate CAP* [Colace Cap*] 100 mg PO BID 06/15/17 tiZANidine TAB* [Zanaflex TAB*] 2 mg PO TID 08/24/17 fentaNYL PATCH 50 MCG/HR* [Duragesic PATCH 50 Mcg/Hr*] 50 mcg TRANSDERM Q72H patch MDD 1 patch 11/02/17 Acetaminophen [Tylenol Extra Strength] 500 mg PO Q8HR PRN 12/24/17 Aspirin TAB* [Aspirin 325 MG TAB*] 325 mg PO BID 12/24/17 Atorvastatin* [Lipitor*] 20 mg PO QPM 12/24/17 BuPROPion XL* [Bupropion XL*] 300 mg PO DAILY 12/24/17 Calcium/Vitamin D TAB 250/125* [Oscal D TAB 250/125*] 1 tab PO BID 12/24/17 Cholecalciferol TAB* [Vitamin D TAB*] 250 mg PO BID 12/24/17 Famotidine TAB* [Pepcid 20 MG TAB*] 20 mg PO BID 12/24/17 Gabapentin CAP(*) [Neurontin 300 CAP(*)] 300 mg PO TID 12/24/17 Levothyroxine TAB* [Synthroid TAB*] 50 mcg PO QAM 12/24/17 Magnesium Oxide TAB* [MagOx 400 TAB*] 800 mg PO DAILY 12/24/17 Metoprolol Tartrate TAB* [Lopressor TAB*] 25 mg PO BID 12/24/17 Omeprazole CAP* [Prilosec CAP* 20 MG] 20 mg PO DAILY 12/24/17 Potassium Chlor TAB* [Klor Con ER TAB*] 20 meq PO DAILY 12/24/17 Teriparatide [Forteo] 2.4 ml SUBCUT DAILY 12/24/17 oxyCODONE TAB* [Roxycodone TAB 5 mg*] 5 mg PO Q8H PRN 12/24/17 predniSONE TAB* [Deltasone TAB*] 5 mg PO QAM 12/24/17 Allergies Cephalosporins Allergy (Verified 12/24/17 19:08) Abdominal Pain latex Allergy (Verified 12/24/17 19:08) Rash PSurgHx OU cataract extractions C-spine fusion 07/2017 replacement of failed C-spine hardware 11/2017 colectomy hysterectomy bunionectomy SocHx: former smoker, no alcohol or recreational drugs; lives in an apartment in [place], 4 children locally; DNR code status FamHx: Mother: laryngeal CA; Father: suicide ROS: as above, otherwise reviewed and all were negative vitals: Vital Signs Temp 36.2 C 12/24/17 18:38 Pulse 77 12/24/17 20:52 Resp 27 12/24/17 20:52 BP 138/66 12/24/17 20:52 Pulse Ox 100 12/24/17 20:52 Intake & Output 12/23/17 12/24/17 12/24/17 23:59 11:59 23:59 Weight 50.349 kg Constitutional: NAD, normally developed, well-nourished elderly white female HEENM: atraumatic; sclera/conjunctiva: anicteric/clear; hearing: clinically intact; oropharynx: clear, mucosa tacky Neck: soft tissue: non-tender; thyroid: normal Pulmonary: mild bibasilar crackles, fair aeration, no accessory muscle use CV: RR/RR, normal S1S2, no carotid bruit, no jugular venous distention, 2+ B DP/ PT, no edema Abdominal: soft, non-distended, non-tender, no rebound/guarding/rigidity, normoactive bowel sounds, no hepatosplenomegaly or masses, no costovertebral angle tenderness Musculoskeletal: general: grossly intact, no tenderness w/ palpation Integumental: normal appearance and texture of exposed skin Psychiatric orientation: A&O to PPS affect: calm mood: cooperative eye contact: good content: reliable responses: timely insight: fair to good Testing: Lab Results 12/24/17 12/24/17 12/24/17 Range/Units 19:37 19:37 19:37 WBC 5.9 (3.5-10.8) 10^3/ul RBC 4.45 (4.0-5.4) 10^6/ul Hgb 10.0 L (12.0-16.0) g/dl Hct 31 L (35-47) % MCV 71 L (80-97) fL MCH 23 L (27-31) pg MCHC 32 (31-36) g/dl RDW 19 H (10.5-15) % Plt Count 332 (150-450) 10^3/ul MPV 7.2 L (7.4-10.4) um3 Neut % (Auto) 73.0 (38-83) % Lymph % (Auto) 17.4 L (25-47) % Dickinson % (Auto) 8.5 H (0-7) % Eos % (Auto) 0.5 (0-6) % Baso % (Auto) 0.6 (0-2) % Absolute Neuts (auto) 4.3 (1.5-7.7) 10^3/ul Absolute Lymphs (auto) 1.0 (1.0-4.8) 10^3/ul Absolute Monos (auto) 0.5 (0-0.8) 10^3/ul Absolute Eos (auto) 0 (0-0.6) 10^3/ul Absolute Basos (auto) 0 (0-0.2) 10^3/ul Absolute Nucleated RBC 0 10^3/ul Nucleated RBC % 0 Polychromasia 1+ Hypochromasia 2+ Elliptocytes 1+ Acanthocytes (Spur) 2+ INR (Anticoag Therapy) (0.77-1.02) APTT (26.0-36.3) seconds Sodium 134 L (139-145) mmol/L Potassium 4.2 (3.5-5.0) mmol/L Chloride 100 L (101-111) mmol/L Carbon Dioxide 28 (22-32) mmol/L Anion Gap 6 (2-11) mmol/L BUN 15 (6-24) mg/dL Creatinine 0.58 (0.51-0.95) mg/dL Est GFR ( Amer) 130.7 (>60) Est GFR (Non-Af Amer) 101.6 (>60) BUN/Creatinine Ratio 25.9 H (8-20) Glucose 93 (70-100) mg/dL Lactic Acid 0.9 (0.5-2.0) mmol/L Calcium 9.1 (8.6-10.3) mg/dL Magnesium 1.9 (1.9-2.7) mg/dL Total Bilirubin 0.30 (0.2-1.0) mg/dL AST 25 (13-39) U/L ALT 12 (7-52) U/L Alkaline Phosphatase 94 (34-104) U/L Troponin I 0.01 (<0.04) ng/mL B-Natriuretic Peptide ( - 100) pg/mL Total Protein 6.6 (6.4-8.9) g/dL Albumin 2.5 L (3.2-5.2) g/dL Globulin 4.1 H (2-4) g/dL Albumin/Globulin Ratio 0.6 L (1-3) TSH 0.62 (0.34-5.60) mcIU/mL Urine Color Urine Appearance Urine pH (5-9) Ur Specific Partlow (1.010-1.030) Urine Protein (Negative) Urine Ketones (Negative) Urine Blood (Negative) Urine Nitrate (Negative) Urine Bilirubin (Negative) Urine Urobilinogen (Negative) Ur Leukocyte Esterase (Negative) Urine Glucose (Negative) 12/24/17 12/24/17 12/24/17 Range/Units 19:37 19:37 21:26 WBC (3.5-10.8) 10^3/ul RBC (4.0-5.4) 10^6/ul Hgb (12.0-16.0) g/dl Hct (35-47) % MCV (80-97) fL MCH (27-31) pg MCHC (31-36) g/dl RDW (10.5-15) % Plt Count (150-450) 10^3/ul MPV (7.4-10.4) um3 Neut % (Auto) (38-83) % Lymph % (Auto) (25-47) % Dickinson % (Auto) (0-7) % Eos % (Auto) (0-6) % Baso % (Auto) (0-2) % Absolute Neuts (auto) (1.5-7.7) 10^3/ul Absolute Lymphs (auto) (1.0-4.8) 10^3/ul Absolute Monos (auto) (0-0.8) 10^3/ul Absolute Eos (auto) (0-0.6) 10^3/ul Absolute Basos (auto) (0-0.2) 10^3/ul Absolute Nucleated RBC 10^3/ul Nucleated RBC % Polychromasia Hypochromasia Elliptocytes Acanthocytes (Spur) INR (Anticoag Therapy) 1.05 H (0.77-1.02) APTT 29.9 (26.0-36.3) seconds Sodium (139-145) mmol/L Potassium (3.5-5.0) mmol/L Chloride (101-111) mmol/L Carbon Dioxide (22-32) mmol/L Anion Gap (2-11) mmol/L BUN (6-24) mg/dL Creatinine (0.51-0.95) mg/dL Est GFR ( Amer) (>60) Est GFR (Non-Af Amer) (>60) BUN/Creatinine Ratio (8-20) Glucose (70-100) mg/dL Lactic Acid (0.5-2.0) mmol/L Calcium (8.6-10.3) mg/dL Magnesium (1.9-2.7) mg/dL Total Bilirubin (0.2-1.0) mg/dL AST (13-39) U/L ALT (7-52) U/L Alkaline Phosphatase (34-104) U/L Troponin I (<0.04) ng/mL B-Natriuretic Peptide 529 H ( - 100) pg/mL Total Protein (6.4-8.9) g/dL Albumin (3.2-5.2) g/dL Globulin (2-4) g/dL Albumin/Globulin Ratio (1-3) TSH (0.34-5.60) mcIU/mL Urine Color Yellow Urine Appearance Clear Urine pH 8.0 (5-9) Ur Specific Part[place] 1.005 L (1.010-1.030) Urine Protein Negative (Negative) Urine Ketones Negative (Negative) Urine Blood Negative (Negative) Urine Nitrate Negative (Negative) Urine Bilirubin Negative (Negative) Urine Urobilinogen Negative (Negative) Ur Leukocyte Esterase Negative (Negative) Urine Glucose Negative (Negative) ECG, personally reviewed: NSR rate 69, T-wave inversions II/III/AVF; similar to previous CXR, personally reviewed: IMPRESSION: No radiographic evidence for acute cardiopulmonary abnormality on this portable chest x-ray. ECHO (09/06/2017): Conclusions: Mild concentric left ventricular hypertrophy is observed. The estimated ejection fraction is 50-55%. Left ventricular systolic function is at the lower limits of normal. The apical lateral, and apical inferior wall segments are hypokinetic (score 2). Abnormal left ventricular diastolic function is observed. The right ventricular global systolic function is mildly reduced. There is no evidence of aortic stenosis. There is trace to mild mitral regurgitation. There is mild tricuspid regurgitation. There is evidence of mild pulmonary hypertension. There is no dilatation of the ascending aorta. Compared to study of 08/24/17, the Lv function is better with less wall motion abnormalities. Est PASP is lower. Impression: 72F HX NSTEMI 08/2017, replacement of failed C-spine hardware 2017, PAOD, HTN, HLD, diastolic HF, COPD who presents with chest pressure for r/ o ACS and acute diastolic HF DIAGNOSIS & PLAN Primary chest pain r/o ACS : HX CAD/NSTEMI : aspirin : additional 12.5mg PO metoprolol in ED : telemetry : trend troponin : supplemental oxygen : supportive care acute diastolic HF : furosemide diuresis : trend electrolytes : strict I&Os : daily weights Secondary PAOD/HLD : continue atorvastatin COPD : albuterol PRN DVT : SCDs & heparin SQ rheumatoid arthritis : continue fentanyl patch, oxycodone, prednisone, & tizanidine HTN : continue metoprolol hypothyroidism : continue levothyroxine GERD : continue famotidine & omeprazole depression/anxiety : continue bupropion Admission Rational: observation for r/o ACS, diastolic HF DVTp: SCDs & heparin SQ Code Status: full HCP: daughters, Mackenzie & Nela
--- NOTE | 2017-12-25 05:08 | ED ---
Vinay Sandoval Jennifer, scribed for Belen Singh MD on 12/24/17 at 1921 . Complex/Multi-Sys Presentation - HPI Summary HPI Summary: The patient is a 72 year old female brought in by EMS for general head-to-toe pain and chest heaviness for the past couple of days. The patient describes that her bones feel like theyre breaking in half. The patient additionally complains of shortness of breath and dizziness. She wears a neck collar at all times due to previous neck surgery but denies any new trauma. The patient uses 2L of oxygen at home. She denies abdominal pain. The patient has a history of rheumatoid arthritis. - History Of Current Complaint Chief Complaint: EDChestPainROMI Time Seen by Provider: 12/24/17 19:04 Hx Obtained From: Patient, Family/Critical Power Technician - 2 daughters Onset/Duration: Sudden Onset, Lasting Days - couple days, Still Present Timing: Constant Severity Currently: Moderate Severity Initially: Moderate Location: Pain At: - head-to-toe pain Character: Unable To Describe - "like bones breaking in half" Associated Signs And Symptoms: Positive: Other - general pain, chest heaviness, shortness of breath, dizziness. NEGATIVE: abdominal pain - Allergies/Home Medications Allergies/Adverse Reactions: Allergies Allergy/AdvReac Type Severity Reaction Status Date / Time Cephalosporins Allergy Abdominal Verified 12/24/17 19:08 Pain latex Allergy Rash Verified 12/24/17 19:08 Home Medications: Home Medications Acetaminophen [Tylenol Extra Strength] 500 mg PO Q8HR PRN 12/24/17 [History Confirmed 12/24/17] Aspirin TAB* [Aspirin 325 MG TAB*] 325 mg PO BID 12/24/17 [History Confirmed 07/03] Atorvastatin* [Lipitor*] 20 mg PO QPM 12/24/17 [History Confirmed 12/24/17] BuPROPion XL* [Bupropion XL*] 300 mg PO DAILY 12/24/17 [History Confirmed ] Calcium/Vitamin D TAB 250/125* [Oscal D TAB 250/125*] 1 tab PO BID 12/24/17 [ History Confirmed 12/24/17] Cholecalciferol TAB* [Vitamin D TAB*] 250 mg PO BID 12/24/17 [History Confirmed 12/24/17] Famotidine TAB* [Pepcid 20 MG TAB*] 20 mg PO BID 12/24/17 [History Confirmed 07/03] Gabapentin CAP(*) [Neurontin 300 CAP(*)] 300 mg PO TID 12/24/17 [History Confirmed 12/24/17] Levothyroxine TAB* [Synthroid TAB*] 50 mcg PO QAM 12/24/17 [History Confirmed ] Magnesium Oxide TAB* [MagOx 400 TAB*] 800 mg PO DAILY 12/24/17 [History Confirmed 12/24/17] Metoprolol Tartrate TAB* [Lopressor TAB*] 25 mg PO BID 12/24/17 [History Confirmed 12/24/17] Omeprazole CAP* [Prilosec CAP* 20 MG] 20 mg PO DAILY 12/24/17 [History Confirmed 12/24/17] Potassium Chlor TAB* [Klor Con ER TAB*] 20 meq PO DAILY 12/24/17 [History Confirmed 12/24/17] Teriparatide [Forteo] 2.4 ml SUBCUT DAILY 12/24/17 [History Confirmed 12/24/17] oxyCODONE TAB* [Roxycodone TAB 5 mg*] 5 mg PO Q8H PRN 12/24/17 [History Confirmed 12/24/17] predniSONE TAB* [Deltasone TAB*] 5 mg PO QAM 12/24/17 [History Confirmed ] PMH/Surg Hx/FS Hx/Imm Hx Endocrine/Hematology History: Reports: Hx Anticoagulant Therapy - heparin for DVT prophylaxis, Hx Thyroid Disease - hypothyroid, Hx Anemia Denies: Hx Diabetes, Hx Systemic Lupus Erythematosus Cardiovascular History: Reports: Hx Angina, Hx Angioplasty, Hx Cardiac Arrest, Hx Congestive Heart Failure, Hx Coronary Artery Disease - stent placed, Hx Hypercholesterolemia, Hx Hypertension, Hx Myocardial Infarction, Other Cardiovascular Problems/Disorders - DR. DUNLAP Denies: Hx Pacemaker/ICD, Hx Valvular Heart Disease Respiratory History: Reports: Hx Chronic Obstructive Pulmonary Disease (COPD), Other Respiratory Problems/Disorders - OCCASIONALLY DIFFICULTY BREATHING- PRN PROVENTIL- STATES HELPS Denies: Hx Asthma, Hx Lung Cancer, Hx Pneumonia, Hx Seasonal Allergies, Hx Sleep Apnea GI History: Reports: Hx Gall Bladder Disease - cholecystectomy, Hx Gastroesophageal Reflux Disease - ON MEDICATION FOR, Other GI Disorders - colitis History: Reports: Hx Kidney Infection, Hx Kidney Stones Denies: Hx Dialysis, Hx Renal Disease Musculoskeletal History: Reports: Hx Arthritis, Hx Rheumatoid Arthritis, Hx Back Problems, Hx Fibromyalgia, Hx Osteoporosis, Other Musculoskeletal History - herniated disc back T5 and cervical area Sensory History: Reports: Hx Cataracts, Hx Contacts or Glasses - Reading glasses Denies: Hx Glaucoma, Hx Hearing Aid Opthamlomology History: Reports: Hx Cataracts, Hx Contacts or Glasses - Reading glasses Denies: Hx Glaucoma Neurological History: Reports: Hx Migraine - RARELY, Hx Seizures Denies: Hx Nerve Disease, Hx Spinal Cord Injury, Hx Transient Ischemic Attacks (TIA) Psychiatric History: Reports: Hx Anxiety - ON MEDICATION FOR, Hx Depression - ON MEDICATION FOR Denies: Hx Panic Disorder - Surgical History Surgery Procedure, Year, and Place: Cardiac stent; right hand surgery; left foot surgery; neck surgery, cholecystectomy, hysterectomy, emergency bowel block (>20 years ago) Hx Anesthesia Reactions: No Infectious Disease History: No Infectious Disease History: Reports: Hx of Known/Suspected MRSA Denies: Traveled Outside the [place] in Last 30 Days - Family History Known Family History: Positive: Other - [place]. cancer. TIA - Social History Alcohol Use: None Hx Substance Use: No Substance Use Type: Reports: None Hx Tobacco Use: Yes - not currently Smoking Status (MU): Former Smoker Type: Cigarettes Amount Used/How Often: 1 PPD X 45 YEARS Length of Time of Smoking/Using Tobacco: 48 years Have You Smoked in the Last Year: No Review of Systems Positive: Chest Pain - chest heaviness Positive: Shortness Of Breath Negative: Abdominal Pain Positive: Myalgia - head-to-toe pain Neurological: Other - Dizziness All Other Systems Reviewed And Are Negative: Yes Physical Exam - Summary Physical Exam Summary: GENERAL: ~Patient is a well developed and nourished F who is lying comfortable in the stretcher. ~Patient is not in any acute respiratory distress. HEAD AND FACE: Normocephalic EYES: PERRLA, EOMI x 2. EARS: Hearing grossly intact. MOUTH: Oropharynx within normal limits. NECK: Supple, trachea is midline, no adenopathy, no JVD, no carotid bruit. CHEST: Symmetric, no tenderness at palpation LUNGS: Clear to auscultation anteriorly but examination incomplete posteriorly due to neck brace. No wheezing or crackles. CVS: Regular rate and rhythm, S1 and S2 present, no murmurs or gallops appreciated. ABDOMEN: Soft, non-tender. Bowel sounds are normal. No abdominal abnormal pulsations. EXTREMITIES: Full ROM in all major joints, 2+ bilateral pedal edema, no cyanosis or clubbing. NEURO: Alert and oriented x 3. No acute neurological deficits. Speech is normal and follows commands. SKIN: Dry and warm Triage Information Reviewed: Yes Vital Signs On Initial Exam: Initial Vitals Temp Pulse Resp BP Pulse Ox 97.1 F 74 16 111/56 96 12/24/17 18:38 12/24/17 18:38 12/24/17 18:38 12/24/17 18:38 12/24/17 18:38 Vital Signs Reviewed: Yes Diagnostics - Vital Signs Vital Signs Temp Pulse Resp BP Pulse Ox 12/24/17 18:38 97.1 F 74 16 111/56 96 - Laboratory Result Diagrams: 12/24/17 19:37 12/24/17 19:37 Lab Statement: Any lab studies that have been ordered have been reviewed, and results considered in the medical decision making process. - Radiology CXR Xray Interpretation: No Acute Changes - No radiographic evidence for acute cardiopulmonary abnormality on this portable chest x-ray. Dr. Singh has reviewed this report. Radiology Interpretation Completed By: Radiologist - EKG 1925 Cardiac Rate: NL EKG Rhythm: Sinus Rhythm - 69 BPM EKG Interpretation: Evidence of inferior infarction EKG Comparison: No Significant Change - similar to previous EKG on 09/06/2017. Complex Multi-Symp Course/Dx Course Of Treatment: The patient is a 72 year old female brought in by EMS for general head-to-toe pain and chest heaviness for the past couple of days. Workup was unremarkable BNP of 529. Troponin is negative. Pt was given Lasix and NTG, but still having chest heaviness even though it has improved. Patient will be admitted given risk factors. I discussed the case with the hospitalist, who accepted the patient. The patient is diagnosed with chest pain. - Diagnoses Provider Diagnoses: Chest pain - Physician Notifications Discussed Care Of Patient With: Alf Price Time Discussed With Above Provider: 22:11 Instructed by Provider To: Admit As Inpatient Discharge - Sign-Out/Discharge Documenting (check all that apply): Discharge/Admit/Transfer - Discharge Plan Condition: Good Disposition: ADMITTED TO [facility] Referrals: Fernando Fuller DO [Primary Care Provider] - The documentation as recorded by the Vinay erazo Jennifer accurately reflects the service I personally performed and the decisions made by me, Belen Singh MD.
[2017-12-25 05:09] LABS: Hematocrit 30 % (35-47); Hemoglobin 9.6 g/dl (12.0-16.0); Mean Corpuscular HGB Conc 32 g/dl (31-36); Mean Corpuscular Hemoglobin 23 pg (27-31); Mean Corpuscular Volume 70 fL (80-97); Mean Platelet Volume 7.2 um3 (7.4-10.4); Platelet Count 348 10^3/ul (150-450); Red Blood Count 4.27 10^6/ul (4.0-5.4); Red Cell Distribution Width 19 % (10.5-15)
[2017-12-25 05:23] LABS: EGFR Non-African American 105.8 (>60)
[2017-12-25] MEDS: Levothyroxine TAB* 50 MCG TAB PO SCH (05:23)
[2017-12-25] MEDS: fentaNYL PATCH 50 MCG/HR TRANSDERM SCH (05:23)
[2017-12-25] MEDS ORDERED: Omeprazole CAP* 20 MG PO SCH (06:00)
[2017-12-25] MEDS: fentaNYL Patch Check Q Shift 1 NOTE SCH ×2 (07:19→18:48)
[2017-12-25] MEDS: tiZANidine TAB* 2 MG PO SCH ×3 (08:39→20:53)
[2017-12-25] MEDS: Famotidine TAB* 20 MG PO SCH ×2 (08:40→20:53)
[2017-12-25] MEDS: Magnesium Oxide TAB* 400 MG PO SCH (08:40)
[2017-12-25] MEDS: traMADol TAB* 50 MG PO PRN ×3 (08:40→15:03)
[2017-12-25] MEDS: Omeprazole CAP* 20 MG PO SCH (08:40)
[2017-12-25] MEDS: Folic Acid TAB* 1 MG PO SCH (08:40)
[2017-12-25] MEDS: Gabapentin CAP(*) 300 MG PO SCH ×3 (08:40→20:54)
[2017-12-25] MEDS: Aspirin TAB* 325 MG PO SCH ×2 (08:40→20:53)
[2017-12-25] MEDS: Docusate CAP* 100 MG PO SCH ×2 (08:40→20:53)
[2017-12-25] MEDS: Furosemide IV* 10 MG/ML 10 ML VIAL (100 MG) IV SCH ×2 (08:41→12:35)
[2017-12-25] MEDS: predniSONE TAB* 5 MG PO SCH (08:41)
[2017-12-25] MEDS: Potassium Chlor TAB* 20 MEQ TAB.ER PO SCH (08:41)
[2017-12-25] MEDS: Metoprolol Tartrate TAB* 25 MG PO SCH ×2 (08:41→20:53)
[2017-12-25] MEDS ORDERED: Aspirin EC TAB* 81 MG TAB.EC PO SCH (09:00)
[2017-12-25] MEDS: BuPROPion XL* 300 MG TAB.XL PO SCH (09:39)
--- NOTE | 2017-12-25 15:07 | PN ---
Subjective Date of Service: 12/25/17 Interval History: Patient was seen and examined at bedside. I did see her earlier this morning. She remains chest pain free overnight, denies wheezing or SOB. She requested diet since no testing was scheduled for today. Denies palpitations, headaches, dizziness, nausea or vomiting. I was paged later this AM, when patient had a hypotensive episode while sitting on toilet having a BM. Per nursing staff, patient had a large BM, felt "oozy", but no syncope, chest pain or palpitations. Her BP was 50s/30s. Staff were able to move her back to her bed, BP rechecked, now in 90s/50s. Lasix was withheld for afternoon dose. Patient then had 2 more "loose" BMs, associated with lower abdominal cramping. Patient denies any previous cramps or changes in bowel habits since admission. Denies nausea, vomiting, abdominal bloating, BRBPR or hx C-diff. She denies recent sick contact, Abx use, travelling or dinning at restaurant. No fever or chills. Family History: Unchanged from Admission Social History: Unchanged from Admission Past Medical History: Unchanged from Admission Objective Active Medications: Acetaminophen (Tylenol Tab*) 650 mg PO Q6H PRN PRN Reason: FEVER/PAIN Albuterol (Ventolin 2.5 Mg/3 Ml Neb.Allison*) 2.5 mg INH Q2H PRN PRN Reason: SOB/WHEEZING Aspirin (Aspirin Tab*) 325 mg PO BID [facility] Last Admin: 12/25/17 08:40 Dose: 325 mg Atorvastatin Calcium (Lipitor*) 20 mg PO QPM [facility] Bupropion HCl (Bupropion Xl*) 300 mg PO DAILY [facility] Last Admin: 12/25/17 09:39 Dose: 300 mg Docusate Sodium (Colace Cap*) 200 mg PO BID [facility] Last Admin: 12/25/17 08:40 Dose: 200 mg Famotidine (Pepcid Tab*) 20 mg PO BID [facility] Last Admin: 12/25/17 08:40 Dose: 20 mg Fentanyl (Duragesic Patch 50 Mcg/Hr*) 50 mcg TRANSDERM Q72H [facility] Last Admin: 12/25/17 05:23 Dose: 50 mcg Folic Acid (Folvite Tab*) 1 mg PO QAM [facility] Last Admin: 12/25/17 08:40 Dose: 1 mg Furosemide (Lasix Iv*) 40 mg IV 0800,1200 [facility] Last Admin: 12/25/17 12:35 Dose: Not Given Gabapentin (Neurontin Cap(*)) 300 mg PO TID [facility] Last Admin: 12/25/17 08:40 Dose: 300 mg Levothyroxine Sodium (Synthroid Tab*) 50 mcg PO 0600 [facility] Last Admin: 12/25/17 05:23 Dose: 50 mcg Magnesium Oxide (Magox 400 Tab*) 800 mg PO DAILY [facility] Last Admin: 12/25/17 08:40 Dose: 800 mg Melatonin (Melatonin (Nf)) 3 mg PO BEDTIME PRN; Protocol PRN Reason: Sleep Metoprolol Tartrate (Lopressor Tab*) 25 mg PO BID [facility] Last Admin: 12/25/17 08:41 Dose: 25 mg Omeprazole (Prilosec Cap*) 20 mg PO DAILY [facility] Last Admin: 12/25/17 08:40 Dose: 20 mg Ondansetron HCl (Zofran Inj*) 4 mg IV Q6H PRN PRN Reason: NAUSEA Oxycodone HCl (Roxycodone Tab*) 5 mg PO Q8H PRN PRN Reason: PAIN Oxycodone/Acetaminophen (Percocet 5/325 Tab*) 1 tab PO Q6H PRN PRN Reason: PAIN Pharmacy Profile Note (Fentanyl Patch Check Q Shift) 1 note N/A 0700,1900 [facility] Last Admin: 12/25/17 07:19 Dose: 1 note Potassium Chloride (Klor Con Er Tab*) 20 meq PO DAILY [facility] Last Admin: 12/25/17 08:41 Dose: 20 meq Prednisone (Deltasone Tab*) 5 mg PO QAM [facility] Last Admin: 12/25/17 08:41 Dose: 5 mg Tizanidine HCl (Zanaflex Tab*) 2 mg PO TID [facility] Last Admin: 12/25/17 08:39 Dose: 2 mg Tramadol HCl (Ultram*) 50 mg PO Q6H PRN PRN Reason: PAIN Last Admin: 12/25/17 08:40 Dose: 50 mg Oxygen Devices in Use Now: Nasal Cannula Appearance: Frail elderly female, comfortable in bed, in NAD. Eyes: No Scleral Icterus, PERRLA Ears/Nose/Mouth/Throat: Clear Oropharnyx, Mucous Membranes Moist Neck: Trachea Midline, - - C-spine with collar in place. Posterior neck with a small open wound to distal end of midline incision, approx. 1 cm in diameter, superficial with no surrounding erythema or induration. wound covered with a new occlusive dressing. Respiratory: Symmetrical Chest Expansion and Respiratory Effort, Clear to Auscultation Cardiovascular: NL Sounds; No Murmurs; No JVD, RRR Abdominal: - - Mild lower abdominal tenderness noted, without guarding, rigidity or rebound. Bowel sounds normoactive. No distension. Extremities: No Edema Skin: No Rash or Ulcers Neurological: Alert and Oriented x 3, NL Sensation, NL Muscle Strength and Tone , - - Lower back with 2 open wounds at different healing stages. Appears to be stage II decubitus. No active discharge or bleeding, wounds packed with 1/4 inch plain gauze and covered with occlusive dressing. Nutrition: Taking PO's Result Diagrams: 12/25/17 04:43 12/25/17 04:43 Diagnostic Imaging: Abdominal films limited view due to inability to position lateral decubitus secondary to C-spine collar. Reviewed by myself. Appears to have moderate amount of stool in colon. No free air noted. Await radiology report. Order Information: CHEST AP PORTABLE Accession Number: [id number] CPT: 49959 INDICATION: Chest pain COMPARISON: Chest x-ray dated October 31, 2017 TECHNIQUE: Single AP portable view of the chest was obtained. FINDINGS: Image quality is compromised due to the relative inferiority of a portable chest x-ray. The heart and mediastinum exhibit normal size and contour. There is coarse calcification overlying the arch of the aorta. The lungs are grossly clear. There is no evidence of a large pleural effusion. Transpedicular posterior olya fixation involving the lower cervical and thoracic spine is again noted. IMPRESSION: No radiographic evidence for acute cardiopulmonary abnormality on this portable chest x-ray. <Electronically signed by Kian Land MD in [place]> 12/24/171958 Dictated By: Kian Land MD EKG Data: EKG INTERPRETATION ECG Report Patient Name NAEL JAUREGUI Birthdate 1945 Sex F Order Number [id number] Date of ECG 12/25/2017 06:04:42 Interpretation Sinus tachycardia.rate> 99 Ventricular premature complex.V complex w/ short R-R interval Left ventricular hypertrophy.multiple voltage criteria Inferior infarct, old.Q >35mS, II III aVF - ABNORMAL ECG - ECG NEEDS E-SIGNING Assess/Plan/Problems-Billing Assessment: A 72 y/o female with multiple complicated medical issues including NSTEMI, RA, HTN, HLD and diastolic heart failure, who presented to ED with chest pressure and diastolic CHF, to r/o ACS, who also developed lower abdominal cramping with associated diarrhea today. - Patient Problems (1) Chest pressure Current Visit: Yes Status: Acute Priority: High Comment: - Negative trending Troponin series - No changes in repeated EKG - Remains chest pain free since admission - TTE tomorrow or Wednesday - ASA and Beta blockade - Tele monitoring, supplemental oxygen and supportive care (2) Acute diastolic CHF (congestive heart failure) Current Visit: Yes Status: Acute Priority: High Comment: - Improved this AM - Responded well to Furosemide, until vasovagal episode later this AM - Furosemide on hold when hypotensive - Continue strict I/Os - Daily weights (3) Diarrhea Current Visit: Yes Status: Acute Comment: - New onset since admission - Large formed stool when she became vasovagal, followed by 2 looser BMs in afternoon. - Associated lower abdominal cramping - Will check stool Cx and lactoferrin - No recent travelling or Abx intake, doubt C-diff colitis, likely functional vs viral (4) Abdominal cramping Current Visit: Yes Status: Acute Comment: - Abdominal films with moderate sool in colon, no free air - Await radiology reading - Symptomatic management (5) Cervical spinal stenosis Current Visit: No Status: Chronic Comment: - She is s/p replacement of failed C-spine hardware in 11/2017 at [place] - Keep C-spine collar in place as recommended - Appears to have a small dehiscence at distal end of midline incision on posterior neck. - Continue daily dressing changes - Patient has been followed by wound clinic for this issue and also her open wounds from chronic decubitus. (6) Hypotension Current Visit: Yes Status: Acute Comment: - Most likely vasovagal episode given circumstances and large amount of stool passed. - Resolved now - Lasix on hold until BP stable - No complaints of headaches or dizziness - will continue to monitor (7) COPD (chronic obstructive pulmonary disease) Current Visit: Yes Status: Chronic Comment: - Albuterol neb prn (8) HTN (hypertension) Current Visit: No Status: Chronic Code(s): I10 - ESSENTIAL (PRIMARY) HYPERTENSION SNOMED Code(s): 10247598 Comment: - Continue Metoprolol (9) Hypothyroidism Current Visit: No Status: Chronic Comment: - Continue Levothyroxine 75 mcg daily (home dose). (10) Rheumatoid arthritis Current Visit: No Status: Chronic Comment: - On low dose prednisone 5mg. Previously on mtx and more recently on plaquenil ( stopped early july). - will continue Prednisone, Fentanyl patch and added Percocet prn - pain under control (11) Decubitus skin ulcer Current Visit: No Status: Chronic Comment: - Has been followed by wound clinic - will continue daily packing and dressing changes - appears to be a chronic issues, has not worsen lately (12) CAD (coronary artery disease) Current Visit: No Status: Chronic Comment: - As above continue ASA, continue lipitor. (13) GERD (gastroesophageal reflux disease) Current Visit: No Status: Chronic Comment: - Continue Famotidine and Omeprazole (14) Anxiety and depression Current Visit: No Status: Chronic Comment: - Continue Bupropion (15) DVT prophylaxis Current Visit: No Status: Acute Comment: - subQ heparin (16) DNR (do not resuscitate) Current Visit: No Status: Acute Status and Disposition: Inpatient for treatment of diastolic CHF and rule out ACS. Anticipate discharge when medically stable.
--- NOTE | 2017-12-25 16:54 | RAD ---
Indication: Abdominal pain. Flat and decubitus views of the abdomen demonstrates no free air. No dilated loops of bowel are noted. Degenerative changes of the hip joints are noted. IMPRESSION: No free air or obstruction is noted.
[2017-12-25] MEDS: Atorvastatin* 20 MG TAB PO SCH (18:13)
[2017-12-26] MEDS: Levothyroxine TAB* 50 MCG TAB PO SCH (05:10)
[2017-12-26] MEDS: fentaNYL Patch Check Q Shift 1 NOTE SCH ×2 (07:00→19:10)
[2017-12-26] MEDS: Ferrous Sulfate TAB* 325 MG PO SCH (09:18)
[2017-12-26] MEDS: Docusate CAP* 100 MG PO SCH ×2 (09:19→21:32)
[2017-12-26] MEDS: Magnesium Oxide TAB* 400 MG PO SCH (09:19)
[2017-12-26] MEDS: Aspirin TAB* 325 MG PO SCH ×2 (09:19→21:33)
[2017-12-26] MEDS: Gabapentin CAP(*) 300 MG PO SCH ×3 (09:19→21:32)
[2017-12-26] MEDS: tiZANidine TAB* 2 MG PO SCH ×3 (09:19→21:33)
[2017-12-26] MEDS: Omeprazole CAP* 20 MG PO SCH (09:19)
[2017-12-26] MEDS: Potassium Chlor TAB* 20 MEQ TAB.ER PO SCH (09:20)
[2017-12-26] MEDS: Folic Acid TAB* 1 MG PO SCH (09:20)
[2017-12-26] MEDS: predniSONE TAB* 5 MG PO SCH (09:20)
[2017-12-26] MEDS: Metoprolol Tartrate TAB* 25 MG PO SCH ×2 (09:20→21:33)
[2017-12-26] MEDS: Famotidine TAB* 20 MG PO SCH ×2 (09:20→21:33)
[2017-12-26] MEDS: Furosemide IV* 10 MG/ML 10 ML VIAL (100 MG) IV SCH (09:26)
[2017-12-26] MEDS: oxyCODONE/Acetamin 5/325 MG* TAB PO PRN (10:57)
[2017-12-26] MEDS: BuPROPion XL* 300 MG TAB.XL PO SCH (11:05)
--- NOTE | 2017-12-26 11:12 | PN ---
Subjective Date of Service: 12/26/17 Interval History: Mrs. Parks reports feeling much better today. She is breathing better, denies wheezing, chest pain or SOB. No more BMs since yesterday afternoon. Her abdominal cramping subsided. Denies nausea, vomiting, fever or chills. Appetite is good, ate breakfast and has visitors in room. Her urine output reviewed, appears to have good resolution of her fluid overload. Denies any dizziness, headaches or recurrent near-syncopal episodes. She has no new complaints. Family History: Unchanged from Admission Social History: Unchanged from Admission Past Medical History: Unchanged from Admission Objective Active Medications: Acetaminophen (Tylenol Tab*) 650 mg PO Q6H PRN PRN Reason: FEVER/PAIN Albuterol (Ventolin 2.5 Mg/3 Ml Neb.Allison*) 2.5 mg INH Q2H PRN PRN Reason: SOB/WHEEZING Aspirin (Aspirin Tab*) 325 mg PO BID [facility] Last Admin: 12/26/17 09:19 Dose: 325 mg Atorvastatin Calcium (Lipitor*) 20 mg PO QPM [facility] Last Admin: 12/25/17 18:13 Dose: 20 mg Bupropion HCl (Bupropion Xl*) 300 mg PO DAILY [facility] Last Admin: 12/26/17 11:05 Dose: 300 mg Docusate Sodium (Colace Cap*) 200 mg PO BID [facility] Last Admin: 12/26/17 09:19 Dose: 200 mg Famotidine (Pepcid Tab*) 20 mg PO BID [facility] Last Admin: 12/26/17 09:20 Dose: 20 mg Fentanyl (Duragesic Patch 50 Mcg/Hr*) 50 mcg TRANSDERM Q72H [facility] Last Admin: 12/25/17 05:23 Dose: 50 mcg Ferrous Sulfate (Ferrous Sulfate Tab*) 325 mg PO DAILY [facility] Last Admin: 12/26/17 09:18 Dose: 325 mg Folic Acid (Folvite Tab*) 1 mg PO QAM [facility] Last Admin: 12/26/17 09:20 Dose: 1 mg Furosemide (Lasix Iv*) 40 mg IV SLOW PU DAILY [facility] Gabapentin (Neurontin Cap(*)) 300 mg PO TID [facility] Last Admin: 12/26/17 09:19 Dose: 300 mg Levothyroxine Sodium (Synthroid Tab*) 50 mcg PO 0600 [facility] Last Admin: 05/13/18 05:10 Dose: 50 mcg Magnesium Oxide (Magox 400 Tab*) 800 mg PO DAILY [facility] Last Admin: 12/26/17 09:19 Dose: 800 mg Melatonin (Melatonin (Nf)) 3 mg PO BEDTIME PRN; Protocol PRN Reason: Sleep Metoprolol Tartrate (Lopressor Tab*) 25 mg PO BID [facility] Last Admin: 12/26/17 09:20 Dose: 25 mg Omeprazole (Prilosec Cap*) 20 mg PO DAILY [facility] Last Admin: 12/26/17 09:19 Dose: 20 mg Ondansetron HCl (Zofran Inj*) 4 mg IV Q6H PRN PRN Reason: NAUSEA Oxycodone HCl (Roxycodone Tab*) 5 mg PO Q8H PRN PRN Reason: PAIN Oxycodone/Acetaminophen (Percocet 5/325 Tab*) 1 tab PO Q6H PRN PRN Reason: PAIN Last Admin: 12/26/17 10:57 Dose: 1 tab Pharmacy Profile Note (Fentanyl Patch Check Q Shift) 1 note N/A 0700,1900 [facility] Last Admin: 12/26/17 07:00 Dose: 1 note Potassium Chloride (Klor Con Er Tab*) 20 meq PO DAILY [facility] Last Admin: 12/26/17 09:20 Dose: 20 meq Prednisone (Deltasone Tab*) 5 mg PO QAM [facility] Last Admin: 12/26/17 09:20 Dose: 5 mg Tizanidine HCl (Zanaflex Tab*) 2 mg PO TID [facility] Last Admin: 12/26/17 09:19 Dose: 2 mg Tramadol HCl (Ultram*) 50 mg PO Q6H PRN PRN Reason: PAIN Last Admin: 12/25/17 15:03 Dose: 50 mg Vital Signs - 8 hr 12/26/17 12/26/17 12/26/17 05:10 07:27 08:00 Temperature 98.2 F 98.5 F Pulse Rate 81 114 Respiratory 16 24 20 Rate Blood Pressure 111/56 134/66 (mmHg) O2 Sat by Pulse 99 98 Oximetry 12/26/17 12/26/17 09:19 10:57 Temperature Pulse Rate Respiratory 20 20 Rate Blood Pressure (mmHg) O2 Sat by Pulse Oximetry Oxygen Devices in Use Now: Nasal Cannula Appearance: Sitting on her bed, appears comfortable and in NAD Eyes: No Scleral Icterus, PERRLA Ears/Nose/Mouth/Throat: Clear Oropharnyx, Mucous Membranes Moist Neck: Trachea Midline, - - C-spine collar secured, exam unchanged from yesterday. Respiratory: Symmetrical Chest Expansion and Respiratory Effort, Clear to Auscultation Cardiovascular: NL Sounds; No Murmurs; No JVD, RRR Abdominal: NL Sounds; No Tenderness; No Distention Skin: No Rash or Ulcers Neurological: Alert and Oriented x 3, NL Sensation Nutrition: Taking PO's Result Diagrams: 12/25/17 04:43 12/26/17 04:52 Additional Lab and Data: . Microbiology and Other Data: . Diagnostic Imaging: . EKG Data: . Assess/Plan/Problems-Billing Assessment: A 72 y/o female with multiple complicated medical issues including NSTEMI, RA, HTN, HLD and diastolic heart failure, who presented to ED with chest pressure and diastolic CHF, to r/o ACS, who has clinically improved with strict PO fluid intake and diuretics. - Patient Problems (1) Chest pressure Current Visit: Yes Status: Acute (2) Acute diastolic CHF (congestive heart failure) Current Visit: Yes Status: Acute Comment: - Improved this AM - Responded well to Furosemide, until vasovagal episode later this AM - Furosemide on hold when hypotensive, reduced dose to 40mg daily - Continue strict I/Os - Daily weights (3) Diarrhea Current Visit: Yes Status: Acute Comment: - New onset since admission - Large formed stool when she became vasovagal, followed by 2 looser BMs in afternoon. - Associated lower abdominal cramping - Will check stool Cx and lactoferrin - No recent travelling or Abx intake, doubt C-diff colitis, likely functional vs viral - Symptoms resolved overnight (4) Abdominal cramping Current Visit: Yes Status: Acute Comment: - Abdominal films with moderate sool in colon, no free air - Symptomatic management, resolved (5) Cervical spinal stenosis Current Visit: No Status: Chronic Comment: - She is s/p replacement of failed C-spine hardware in 11/2017 at [place] - Keep C-spine collar in place as recommended - Appears to have a small dehiscence at distal end of midline incision on posterior neck. - Continue daily dressing changes - Patient has been followed by wound clinic for this issue and also her open wounds from chronic decubitus. (6) Hypotension Current Visit: Yes Status: Acute Comment: - Most likely vasovagal episode given circumstances and large amount of stool passed. - Resolved now - Lasix on hold until BP stable - No complaints of headaches or dizziness - will continue to monitor (7) COPD (chronic obstructive pulmonary disease) Current Visit: Yes Status: Chronic Comment: - Albuterol neb prn (8) HTN (hypertension) Current Visit: No Status: Chronic Code(s): I10 - ESSENTIAL (PRIMARY) HYPERTENSION SNOMED Code(s): 95975355 Comment: - Continue Metoprolol (9) Hypothyroidism Current Visit: No Status: Chronic Comment: - Continue Levothyroxine 75 mcg daily (home dose). (10) Rheumatoid arthritis Current Visit: No Status: Chronic Comment: - On low dose prednisone 5mg. Previously on mtx and more recently on plaquenil ( stopped early july). - will continue Prednisone, Fentanyl patch and added Percocet prn - pain under control (11) Decubitus skin ulcer Current Visit: No Status: Chronic Comment: - Has been followed by wound clinic - will continue daily packing and dressing changes - appears to be a chronic issues, has not worsen lately (12) CAD (coronary artery disease) Current Visit: No Status: Chronic Comment: - As above continue ASA, continue lipitor. (13) GERD (gastroesophageal reflux disease) Current Visit: No Status: Chronic Comment: - Continue Famotidine and Omeprazole (14) Anxiety and depression Current Visit: No Status: Chronic Comment: - Continue Bupropion (15) DVT prophylaxis Current Visit: No Status: Acute Comment: - subQ heparin (16) DNR (do not resuscitate) Current Visit: No Status: Acute Status and Disposition: Inpatient for treatment of diastolic CHF and rule out ACS. Anticipate discharge when medically stable.
[2017-12-26] MEDS: traMADol TAB* 50 MG PO PRN (15:26)
[2017-12-26] MEDS: Atorvastatin* 20 MG TAB PO SCH (17:59)
[2017-12-27] MEDS: oxyCODONE TAB* 5 MG TAB PO PRN ×2 (06:05→17:27)
[2017-12-27] MEDS: Levothyroxine TAB* 50 MCG TAB PO SCH (06:06)
[2017-12-27] MEDS: fentaNYL Patch Check Q Shift 1 NOTE SCH ×2 (06:56→18:45)
[2017-12-27] MEDS ORDERED: Furosemide IV* 10 MG/ML VIAL (40 MG) IV SLOW PU SCH (09:00)
[2017-12-27] MEDS: tiZANidine TAB* 2 MG PO SCH ×3 (09:34→20:03)
[2017-12-27] MEDS: Metoprolol Tartrate TAB* 25 MG PO SCH ×2 (09:34→20:03)
[2017-12-27] MEDS: predniSONE TAB* 5 MG PO SCH (09:34)
[2017-12-27] MEDS: Aspirin TAB* 325 MG PO SCH ×2 (09:34→20:03)
[2017-12-27] MEDS: Famotidine TAB* 20 MG PO SCH ×2 (09:34→20:03)
[2017-12-27] MEDS: Gabapentin CAP(*) 300 MG PO SCH ×3 (09:34→20:03)
[2017-12-27] MEDS: Ferrous Sulfate TAB* 325 MG PO SCH (09:34)
[2017-12-27] MEDS: Potassium Chlor TAB* 20 MEQ TAB.ER PO SCH (09:34)
[2017-12-27] MEDS: BuPROPion XL* 300 MG TAB.XL PO SCH (09:34)
[2017-12-27] MEDS: Omeprazole CAP* 20 MG PO SCH (09:35)
[2017-12-27] MEDS: Folic Acid TAB* 1 MG PO SCH (09:35)
[2017-12-27] MEDS: oxyCODONE/Acetamin 5/325 MG* TAB PO PRN (09:35)
[2017-12-27] MEDS: Docusate CAP* 100 MG PO SCH ×2 (09:35→20:03)
[2017-12-27] MEDS: Magnesium Oxide TAB* 400 MG PO SCH (09:35)
[2017-12-27] MEDS: traMADol TAB* 50 MG PO PRN (14:03)
[2017-12-27] MEDS: Atorvastatin* 20 MG TAB PO SCH (17:28)
--- NOTE | 2017-12-27 18:41 | PN ---
Subjective Date of Service: 12/27/17 Interval History: Patient reports she feels stronger today and thinks she could go home tomorrow. She reports her diarrhea has resolved. No fevers or chills. Denies SOB/CP. Reports good appetite. Family History: Unchanged from Admission Social History: Unchanged from Admission Past Medical History: Unchanged from Admission Objective Active Medications: Acetaminophen (Tylenol Tab*) 650 mg PO Q6H PRN PRN Reason: FEVER/PAIN Albuterol (Ventolin 2.5 Mg/3 Ml Neb.Allison*) 2.5 mg INH Q2H PRN PRN Reason: SOB/WHEEZING Aspirin (Aspirin Tab*) 325 mg PO BID [facility] Last Admin: 12/27/17 09:34 Dose: 325 mg Atorvastatin Calcium (Lipitor*) 20 mg PO QPM [facility] Last Admin: 12/27/17 17:28 Dose: 20 mg Bupropion HCl (Bupropion Xl*) 300 mg PO DAILY [facility] Last Admin: 12/27/17 09:34 Dose: 300 mg Docusate Sodium (Colace Cap*) 200 mg PO BID [facility] Last Admin: 12/27/17 09:35 Dose: 200 mg Famotidine (Pepcid Tab*) 20 mg PO BID [facility] Last Admin: 12/27/17 09:34 Dose: 20 mg Fentanyl (Duragesic Patch 50 Mcg/Hr*) 50 mcg TRANSDERM Q72H [facility] Last Admin: 12/25/17 05:23 Dose: 50 mcg Ferrous Sulfate (Ferrous Sulfate Tab*) 325 mg PO DAILY [facility] Last Admin: 12/27/17 09:34 Dose: 325 mg Folic Acid (Folvite Tab*) 1 mg PO QAM [facility] Last Admin: 12/27/17 09:35 Dose: 1 mg Furosemide (Lasix Iv*) 40 mg IV SLOW PU DAILY [facility] Last Admin: 12/27/17 09:34 Dose: 40 mg Gabapentin (Neurontin Cap(*)) 300 mg PO TID [facility] Last Admin: 12/27/17 14:03 Dose: 300 mg Levothyroxine Sodium (Synthroid Tab*) 50 mcg PO 0600 [facility] Last Admin: 12/27/17 06:06 Dose: 50 mcg Magnesium Oxide (Magox 400 Tab*) 800 mg PO DAILY [facility] Last Admin: 12/27/17 09:35 Dose: 800 mg Melatonin (Melatonin (Nf)) 3 mg PO BEDTIME PRN; Protocol PRN Reason: Sleep Metoprolol Tartrate (Lopressor Tab*) 25 mg PO BID [facility] Last Admin: 12/27/17 09:34 Dose: 25 mg Omeprazole (Prilosec Cap*) 20 mg PO DAILY [facility] Last Admin: 12/27/17 09:35 Dose: 20 mg Ondansetron HCl (Zofran Inj*) 4 mg IV Q6H PRN PRN Reason: NAUSEA Oxycodone HCl (Roxycodone Tab*) 5 mg PO Q8H PRN PRN Reason: PAIN Last Admin: 12/27/17 17:27 Dose: 5 mg Oxycodone/Acetaminophen (Percocet 5/325 Tab*) 1 tab PO Q6H PRN PRN Reason: PAIN Last Admin: 12/27/17 09:35 Dose: 1 tab Pharmacy Profile Note (Fentanyl Patch Check Q Shift) 1 note N/A 0700,1900 [facility] Last Admin: 12/27/17 06:56 Dose: 1 note Potassium Chloride (Klor Con Er Tab*) 20 meq PO DAILY [facility] Last Admin: 12/27/17 09:34 Dose: 20 meq Prednisone (Deltasone Tab*) 5 mg PO QAM [facility] Last Admin: 12/27/17 09:34 Dose: 5 mg Tizanidine HCl (Zanaflex Tab*) 2 mg PO TID [facility] Last Admin: 12/27/17 14:03 Dose: 2 mg Tramadol HCl (Ultram*) 50 mg PO Q6H PRN PRN Reason: PAIN Last Admin: 12/27/17 14:03 Dose: 50 mg Vital Signs - 8 hr 12/27/17 12/27/17 12/27/17 11:21 11:46 14:03 Temperature 97.9 F Pulse Rate 86 Respiratory 18 20 18 Rate Blood Pressure 100/45 (mmHg) O2 Sat by Pulse 100 Oximetry 12/27/17 12/27/17 12/27/17 15:41 16:10 17:27 Temperature 97.8 F Pulse Rate 85 Respiratory 16 18 20 Rate Blood Pressure 99/48 (mmHg) O2 Sat by Pulse 100 Oximetry Oxygen Devices in Use Now: Nasal Cannula Appearance: elderly thin female laying in bed in NAD, A+O x3 Eyes: No Scleral Icterus, PERRLA Ears/Nose/Mouth/Throat: NL Teeth, Lips, Gums, Mucous Membranes Moist Neck: NL Appearance and Movements; NL JVP, - - in c-spine brace Respiratory: Symmetrical Chest Expansion and Respiratory Effort, Clear to Auscultation Cardiovascular: NL Sounds; No Murmurs; No JVD, RRR, No Edema Abdominal: NL Sounds; No Tenderness; No Distention Extremities: No Edema, No Clubbing, Cyanosis Skin: No Rash or Ulcers, No Nodules or Sclerosis Neurological: Alert and Oriented x 3, NL Sensation, NL Muscle Strength and Tone Lines/Tubes/Other Access: Clean, Dry and Intact Peripheral IV Nutrition: Taking PO's Result Diagrams: 12/25/17 04:43 12/26/17 04:52 Additional Lab and Data: . Microbiology and Other Data: . Diagnostic Imaging: . EKG Data: . Assess/Plan/Problems-Billing Assessment: A 72 y/o female with multiple complicated medical issues including NSTEMI, RA, HTN, HLD and diastolic heart failure, who presented to ED with chest pressure and diastolic CHF, to r/o ACS, who has clinically improved with strict PO fluid intake and diuretics. - Patient Problems (1) Chest pressure Comment: - Negative trending Troponin series - No changes in repeated EKG - Remains chest pain free since admission - ASA and BB - Tele monitoring, supplemental oxygen and supportive care (2) Acute diastolic CHF (congestive heart failure) Comment: - Improving - DC IV lasix - I do not think the patient lost 11 lbs since admission per ED scale and tele scale was quite different; plan to go by floor scale - in which pt did not lose any weight. - Continue strict I/O's - Daily weights - echo pending (3) Diarrhea Comment: - Resolved (4) Hypotension Comment: - Most likely vasovagal episode given circumstances and large amount of stool passed. - No further episodes (5) COPD (chronic obstructive pulmonary disease) Comment: - controlled - Albuterol neb prn (6) Anxiety and depression Comment: - Continue Bupropion (7) Cervical spinal stenosis Comment: - She is s/p replacement of failed C-spine hardware in 11/2017 at [place] - Keep C-spine collar in place as recommended - Appears to have a small dehiscence at distal end of midline incision on posterior neck. - Continue daily dressing changes - appreciate consult by wound nurse - Patient has been followed by wound clinic for this issue and also her open wounds from chronic decubitus. (8) Decubitus skin ulcer Comment: - Has been followed by wound clinic - will continue daily packing and dressing changes - Appears to be a chronic issues, has not worsen lately (9) HTN (hypertension) Comment: - Continue Metoprolol (10) Hypothyroidism Comment: - Continue Levothyroxine 75 mcg daily (home dose). (11) Rheumatoid arthritis Comment: - On low dose prednisone 5mg. Previously on mtx and more recently on plaquenil ( stopped early july). - will continue Prednisone, Fentanyl patch and added Percocet prn - pain under control (12) DVT prophylaxis Comment: - subQ heparin (13) DNR (do not resuscitate) Status and Disposition: Inpatient for treatment of diastolic CHF and rule out ACS. Anticipate discharge when medically stable.
[2017-12-28] MEDS: fentaNYL PATCH 50 MCG/HR TRANSDERM SCH (05:03)
[2017-12-28] MEDS: Levothyroxine TAB* 50 MCG TAB PO SCH (05:07)
[2017-12-28] MEDS: oxyCODONE TAB* 5 MG TAB PO PRN ×2 (05:07→14:29)
[2017-12-28] MEDS: fentaNYL Patch Check Q Shift 1 NOTE SCH (06:27)
[2017-12-28 07:50] VITALS: BP 122/54
--- NOTE | 2017-12-28 08:38 | PN ---
Subjective Date of Service: 12/28/17 Interval History: Ms. Parks reports that she is feeling quite well today and she is eager for discharge to home. She denies chest pain, SOB, nausea, abdominal pain or diarrhea. Family History: Unchanged from Admission Social History: Unchanged from Admission Past Medical History: Unchanged from Admission Objective Active Medications: Acetaminophen (Tylenol Tab*) 650 mg PO Q6H PRN Albuterol (Ventolin 2.5 Mg/3 Ml Neb.Allison*) 2.5 mg INH Q2H PRN Aspirin (Aspirin Tab*) 325 mg PO BID [facility] Atorvastatin Calcium (Lipitor*) 20 mg PO QPM [facility] Bupropion HCl (Bupropion Xl*) 300 mg PO DAILY [facility] Docusate Sodium (Colace Cap*) 200 mg PO BID [facility] Famotidine (Pepcid Tab*) 20 mg PO BID [facility] Fentanyl (Duragesic Patch 50 Mcg/Hr*) 50 mcg TRANSDERM Q72H [facility] Ferrous Sulfate (Ferrous Sulfate Tab*) 325 mg PO DAILY [facility] Folic Acid (Folvite Tab*) 1 mg PO QAM [facility] Gabapentin (Neurontin Cap(*)) 300 mg PO TID [facility] Levothyroxine Sodium (Synthroid Tab*) 50 mcg PO 0600 [facility] Magnesium Oxide (Magox 400 Tab*) 800 mg PO DAILY [facility] Melatonin (Melatonin (Nf)) 3 mg PO BEDTIME PRN; Protocol Metoprolol Tartrate (Lopressor Tab*) 25 mg PO BID [facility] Omeprazole (Prilosec Cap*) 20 mg PO DAILY [facility] Ondansetron HCl (Zofran Inj*) 4 mg IV Q6H PRN Oxycodone HCl (Roxycodone Tab*) 5 mg PO Q8H PRN Pharmacy Profile Note (Fentanyl Patch Check Q Shift) 1 note N/A 0700,1900 [facility] Potassium Chloride (Klor Con Er Tab*) 20 meq PO DAILY [facility] Prednisone (Deltasone Tab*) 5 mg PO QAM [facility] Tizanidine HCl (Zanaflex Tab*) 2 mg PO TID [facility] Tramadol HCl (Ultram*) 50 mg PO Q6H PRN Vital Signs: Temp Pulse Resp BP Pulse Ox 98.1 F 75 17 122/54 99 12/28/17 07:20 12/28/17 08:22 12/28/17 08:22 12/28/17 07:20 12/28/17 08:23 Oxygen Devices in Use Now: Nasal Cannula Appearance: Elderly female sitting up in bed in NAD Eyes: No Scleral Icterus Ears/Nose/Mouth/Throat: Mucous Membranes Moist Neck: No Thyroid Enlargement, Masses Respiratory: Symmetrical Chest Expansion and Respiratory Effort, Clear to Auscultation Cardiovascular: NL Sounds; No Murmurs; No JVD, No Edema Abdominal: NL Sounds; No Tenderness; No Distention Lymphatic: No Cervical Adenopathy Extremities: No Edema Skin: No Rash or Ulcers Neurological: Alert and Oriented x 3, NL Muscle Strength and Tone Nutrition: Taking PO's Result Diagrams: 12/25/17 04:43 12/26/17 04:52 Additional Lab and Data: . Microbiology and Other Data: . Diagnostic Imaging: . EKG Data: . Assess/Plan/Problems-Billing Assessment: Ms. Parks is a 72 y/o female with multiple complicated medical issues including NSTEMI, RA, HTN, HLD and diastolic heart failure, who presented to ED with chest pressure and diastolic CHF, to r/o ACS, who has clinically improved with strict PO fluid intake and diuretics. - Patient Problems (1) Acute diastolic CHF (congestive heart failure) Comment: - Improving, d/c IV lasix. - Echo with EF 50-55% and diastolic dysfunction. - Continue strict I/O's - Daily weights, weights during hospitalization inconsistent. (2) Chest pressure Comment: - Resolved. - Negative trending Troponin series. No changes in repeated EKG - Continue ASA and BB - Tele monitoring, supplemental oxygen and supportive care (3) HTN (hypertension) Comment: - Continue Metoprolol (4) CAD (coronary artery disease) Comment: - As above continue ASA, continue lipitor. (5) Abdominal cramping Comment: - Resolved (6) Diarrhea Comment: - Resolved (7) Hypotension Status: Acute Priority: Medium Comment: - Most likely vasovagal episode given circumstances and large amount of stool passed. - No further episodes (8) Anxiety and depression Comment: - Continue Bupropion (9) COPD (chronic obstructive pulmonary disease) Comment: - controlled - Albuterol neb prn (10) Cervical spinal stenosis Comment: - She is s/p replacement of failed C-spine hardware in 11/2017 at [place] - Keep C-spine collar in place as recommended - Appears to have a small dehiscence at distal end of midline incision on posterior neck. - Continue daily dressing changes - appreciate consult by wound nurse - Patient has been followed by wound clinic for this issue and also her open wounds from chronic decubitus. (11) Decubitus skin ulcer Comment: - Has been followed by wound clinic - will continue daily packing and dressing changes - Appears to be a chronic issues, has not worsen lately (12) Hypothyroidism Comment: - Continue Levothyroxine 75 mcg daily (home dose). (13) Rheumatoid arthritis Comment: - On low dose prednisone 5mg. Previously on mtx and more recently on plaquenil ( stopped early july). - will continue Prednisone, Fentanyl patch and added Percocet prn - pain under control (14) Chronic pain Comment: - Continue Fentanyl patch, gabapentin, cyclobenzaprine and oxycodone. (15) Anemia Comment: - Chronic, stable. (16) GERD (gastroesophageal reflux disease) Comment: - Continue Famotidine and Omeprazole (17) PVD (peripheral vascular disease) Comment: - cont ASA, statin (18) DVT prophylaxis Comment: - subQ heparin (19) DNR (do not resuscitate) Comment: Status and Disposition: Discharge to home.
[2017-12-28] MEDS: Ferrous Sulfate TAB* 325 MG PO SCH (09:18)
[2017-12-28] MEDS: tiZANidine TAB* 2 MG PO SCH ×2 (09:19→14:29)
[2017-12-28] MEDS: BuPROPion XL* 300 MG TAB.XL PO SCH (09:19)
[2017-12-28] MEDS: predniSONE TAB* 5 MG PO SCH (09:19)
[2017-12-28] MEDS: Metoprolol Tartrate TAB* 25 MG PO SCH (09:19)
[2017-12-28] MEDS: Docusate CAP* 100 MG PO SCH (09:19)
[2017-12-28] MEDS: traMADol TAB* 50 MG PO PRN (09:19)
[2017-12-28] MEDS: Omeprazole CAP* 20 MG PO SCH (09:19)
[2017-12-28] MEDS: Famotidine TAB* 20 MG PO SCH (09:20)
[2017-12-28] MEDS: Gabapentin CAP(*) 300 MG PO SCH ×2 (09:20→14:28)
[2017-12-28] MEDS: Magnesium Oxide TAB* 400 MG PO SCH (09:20)
[2017-12-28] MEDS: Aspirin TAB* 325 MG PO SCH (09:20)
[2017-12-28] MEDS: Folic Acid TAB* 1 MG PO SCH (09:20)
[2017-12-28] MEDS: Potassium Chlor TAB* 20 MEQ TAB.ER PO SCH (09:20)
--- NOTE | 2017-12-28 12:15 | ECHO ---
Patient: NAEL JAUREGUI [facility] Rec#: [id number] : 1945 Date: 12/28/2017 Age: 72y Height: 157.5 cm / 62.0 in Weight: 45.4 kg / 100.1 lbs Sex: F BSA: 1.4 Room#: 431 Admit Date#: 12/25/2017 Type: Inpatient Referring: Laila Mcfarlane Reading: Rod Andrews MD Apparel Sales Leader: Janine Harrington RN RDCS CC: Alina CHAMEBRS,Fernando Transthoracic Echocardiogram Indication: CHF BP: 104/51 HR: 72 Rhythm: NSR Findings History: CAD, NSTEMI 08/24/2017, HTN, HLD, COPD, former smoker, hypothyroidism, RA. Technical Comments: The study quality is fair. The study is technically limited due to the patient's history of COPD. The study is technically limited due to the patient's smoking history. SSN view was not obtained as the patient was wearing a neck brace. Completed at 0910. Left Ventricle: The left ventricular chamber size is normal. Septal wall hypertrophy is observed. There is increased basal septal hypertrophy noted without evidence of an increased gradient across the left ventricular outflow tract. Left ventricular systolic function is at the lower limits of normal. The estimated ejection fraction is 50-55%. Abnormal left ventricular diastolic filling is observed, consistent with impaired relaxation. Left Atrium: The left atrial chamber size is normal. Right Ventricle: The right ventricular cavity size is normal. The right ventricular global systolic function is low normal. Right Atrium: The right atrial cavity size is normal. Aortic Valve: The aortic valve leaflets are mildly thickened. There is no evidence of aortic regurgitation. There is no evidence of aortic stenosis. Mitral Valve: The mitral valve leaflets are mildly thickened. There is trace to mild mitral regurgitation. There is no evidence of mitral stenosis. Tricuspid Valve: The tricuspid valve leaflets are normal. There is trace to mild tricuspid regurgitation. There is evidence of mild pulmonary hypertension. There is no tricuspid stenosis. Pulmonic Valve: The pulmonic valve structure is not well visualized. There is no evidence of pulmonic regurgitation. There is no pulmonic stenosis. Pericardium: There is no significant pericardial effusion. Aorta: The ascending aorta is not well visualized. The aortic arch is not well visualized. There is no dilation of the aortic root. Pulmonary Artery: The main pulmonary artery is not well visualized. Venous: The venous system is not well visualized. Summary: There are no significant changes when compared to the previous study done on 09/07/17 Conclusions The study is technically limited due to the patient's history of COPD. There is increased basal septal hypertrophy noted without evidence of an increased gradient across the left ventricular outflow tract. Left ventricular systolic function is at the lower limits of normal. The estimated ejection fraction is 50-55%. Abnormal left ventricular diastolic filling is observed, consistent with impaired relaxation. The right ventricular global systolic function is low normal. There is no evidence of aortic stenosis. There is trace to mild mitral regurgitation. There is trace to mild tricuspid regurgitation. There is evidence of mild pulmonary hypertension. There is no significant pericardial effusion. Measurements Name Value Normal Range RVDdMajor (2D) 3.2 cm (2.2 - 4.4) RAd ISD 4CH 4.7 cm (3.4 - 4.9) RA (A4C)W 3.4 cm (2.9 - 4.6) IVSd (2D) 1.2 cm (0.6 - 1) LVPWd (2D) 0.9 cm (0.6 - 1) LVIDd (2D) 3.6 cm (3.6 - 5.4) LVIDs (2D) 2.6 cm - LV FS (2D) 28 % (25 - 45) Aortic Annulus 2 cm (1.4 - 2.6) Ao root diameter (2D) 3.2 cm (2.1 - 3.5) LA dimension (AP) 2D 2.7 cm (2.3 - 3.8) LAd ISD 4CH 4.6 cm (2.9 - 5.3) LA ISD 4CH W 3.7 cm (2.5 - 4.5) Name Value Normal Range LA ESV SP 4CH (A/L) 42 ml - LA ESV SP 2CH (A/L) 42 ml - LA ESV BP (A/L) 42 ml - LA ESV BP (A/L) index 29.5 ml/m2 - LA ESV SP 4CH (MOD) 39 ml - LA ESV SP 2CH (MOD) 40 ml - Name Value Normal Range MV E-wave Vmax 0.63 m/sec - MV deceleration time 321 msec - MV A-wave Vmax 0.85 m/sec - MV E:A ratio 0.74 ratio - LV septal e' Vmax 0.06 m/sec - LV lateral e' Vmax 0.08 m/sec - LV E:e' septal ratio 10.5 ratio - LV E:e' lateral ratio 7.9 ratio - Name Value Normal Range AV Vmax 1.4 m/sec - AV VTI 30.3 cm - AV peak gradient 8 mmHg - AV mean gradient 4 mmHg - LVOT Vmax 0.79 m/sec - LVOT VTI 20.4 cm - LVOT peak gradient 2.5 mmHg - LVOT mean gradient 1 mmHg - Name Value Normal Range TR Vmax 2.8 m/sec - TR peak gradient 31 mmHg - RAP 8 mmHg - RVSP 39 mmHg - Name Value Normal Range PV Vmax 0.62 m/sec -
--- NOTE | 2017-12-29 09:46 | DS ---
CC: Dr. Fuller; Dr. Sykes* [facility]IC[facility] DISCHARGE SUMMARY: DATE OF ADMISSION: 12/24/17 DATE OF DISCHARGE: 12/28/17 ATTENDING PHYSICIAN: Dr. Sabino Martinez* (dictation provided by Funmilayo Garcia NP ). PRIMARY DIAGNOSIS: Acute on chronic diastolic congestive heart failure. SECONDARY DIAGNOSES: 1. Coronary artery disease with non-ST elevation myocardial infarction . 2. Peripheral arterial disease. 3. Chronic obstructive pulmonary disease. 4. Chronic diastolic congestive heart failure. 5. History of deep venous thrombosis. 6. Rheumatoid arthritis. 7. Hypertension. 8. Hyperlipidemia. 9. Hypothyroidism. 10. Gastroesophageal reflux disease. 11. Depression. 12. Anxiety. PAST SURGICAL HISTORY: 1. Cataract extraction. 2. C-spine fusion 07/2017. 3. Replacement of failed C-spine hardware 11/2017. 4. Colectomy. 5. Hysterectomy. 6. Bunionectomy. MEDICATIONS AT THE TIME OF DISCHARGE: 1. Forteo 2.5 mL subcutaneously daily. 2. Fentanyl patch 50 mcg q.72 hours. 3. Magnesium oxide 800 mg p.o. daily. 4. Prednisone 5 mg p.o. q.a.m. 5. Folic acid 1 mg p.o. q.a.m. 6. Metoprolol tartrate 25 mg p.o. b.i.d. 7. Levothyroxine 50 mcg p.o. q.a.m. 8. Atorvastatin 20 mg p.o. q.p.m. 9. Potassium chloride 20 mEq p.o. daily. 10. Omeprazole 20 mg p.o. daily. 11. Famotidine 20 mg p.o. b.i.d. 12. Docusate 100 mg p.o. b.i.d. 13. Cholecalciferol 1 tab p.o. b.i.d. 14. Calcium with vitamin D 1 tab p.o. b.i.d. 15. Bupropion 300 mg p.o. daily. 16. Gabapentin 300 mg p.o. t.i.d. 17. Tylenol 500 mg p.o. q.8 hours p.r.n. 18. Zanaflex 2 mg p.o. t.i.d. 19. Oxycodone 5 mg p.o. q.8 hours. 20. Aspirin 325 mg p.o. b.i.d. 21. Ferrous sulfate 325 mg p.o. daily (new medication). HOSPITAL COURSE: Ms. Parks is a 72-year-old female with a past medical history of diastolic congestive heart failure and non-ST elevation [place] in August 2017, who presented to the hospital on 12/24/17 with concern for chest pain. Please see the dictated H and P from Dr. Alf Price for complete details. In brief, the patient reported that she had generalized aching for about the past 3 days prior to admission and then woke up the day of admission with mild substernal nonradiating nonexertional chest pressure associated with nausea and shortness of breath. In the emergency room, she had labs, which showed a troponin, which was 0.01. Her EKG showed no evidence of ischemia. Her BNP was mildly elevated to 529, which was higher than previous. Her chest x -ray showed no evidence of pulmonary edema. Ms. Parks was admitted to the hospital for her chest pain and what was suspected to be a mild diastolic congestive heart failure exacerbation. The patient had serial troponins, all of which were negative. She is chest pain- free at this time. On 12/25/17, the patient had an episode of hypotension associated with significant and multiple bouts of diarrhea. It was suspected that the hypotension was vasovagal/orthostatic in nature related to the significant diarrhea. The diarrhea resolved spontaneously on its own by 12/26/17. The patient shows no evidence of overt infection. She has no fever. There is no abdominal tenderness. Ms. Parks is doing well today. She has been able to be up in her room minimally without any chest pain. She was treated with IV Lasix, but this has been discontinued. She shows no evidence of edema or shortness of breath. She states that she takes Lasix at home from time to time as needed for lower extremity edema and I asked her to continue to do this. She does not weigh herself as she states she does not have a scale at home and this might be helpful for her as well. Ms. Parks is medically stable for discharge to home. She has [facility] services coming into the home as well as aides daily. DISPOSITION: Home. DIET: Low-fat, low-salt. ACTIVITY: As tolerated. FOLLOWUP PLANS: Please follow up with Dr. Fuller and Dr. Sykes regarding this acute hospitalization for acute on chronic diastolic congestive heart failure. TIME SPENT: Approximately 60 minutes was spent in the discharge of this patient , more than half the time was spent with the patient at the bedside reviewing the events leading up to this hospitalization, performing the physical examination, and reviewing my plan of care. FUNMILAYO GARCIA NP [id number]/[facility] #: [id number] PHUC
== END 2017-12-28 16:15 | disposition home health service (06) | DRG 293 ==
LOC: ED 18:27 → MEDTELE 22:06 → OBSVTOIN 12-25 12:09
PROVIDERS: ADMIT Hospitalist; ATTEND Internal Medicine
DX: I11.0 Hypertensive heart disease with heart failure (principal); M06.9 Rheumatoid arthritis, unspecified; I25.10 Atherosclerotic heart disease of native coronary artery without angina pectoris; J44.9 Chronic obstructive pulmonary disease, unspecified; K21.9 Gastro-esophageal reflux disease without esophagitis; M79.7 Fibromyalgia; M81.0 Age-related osteoporosis without current pathological fracture; L89.309 Pressure ulcer of unspecified buttock, unspecified stage; I73.9 Peripheral vascular disease, unspecified; E78.5 Hyperlipidemia, unspecified; E03.9 Hypothyroidism, unspecified; M48.02 Spinal stenosis, cervical region; I50.33 Acute on chronic diastolic (congestive) heart failure; Z66 Do not resuscitate; M51.26 Other intervertebral disc displacement, lumbar region; G43.909 Migraine, unspecified, not intractable, without status migrainosus; F41.9 Anxiety disorder, unspecified; F32.9 Major depressive disorder, single episode, unspecified; R19.7 Diarrhea, unspecified; I95.9 Hypotension, unspecified; R55 Syncope and collapse; Z90.710 Acquired absence of both cervix and uterus; Z86.14 Personal history of Methicillin resistant Staphylococcus aureus infection; Z82.49 Family history of ischemic heart disease and other diseases of the circulatory system; Z87.891 Personal history of nicotine dependence; Z88.1 Allergy status to other antibiotic agents; Z91.040 Latex allergy status; Z99.81 Dependence on supplemental oxygen; I25.2 Old myocardial infarction; Z95.5 Presence of coronary angioplasty implant and graft; Z86.718 Personal history of other venous thrombosis and embolism; Z98.42 Cataract extraction status, left eye; Z90.49 Acquired absence of other specified parts of digestive tract; Z87.442 Personal history of urinary calculi; Z98.41 Cataract extraction status, right eye; Z80.8 Family history of malignant neoplasm of other organs or systems; Z98.1 Arthrodesis status; Z79.52 Long term (current) use of systemic steroids; Z79.82 Long term (current) use of aspirin
CPT/HCPCS: 36415; 71045; 72020; 74019; 80048; 80053; 81003; 83605; 83735; 83880; 84443; 84484; 85025; 85027; 85610; 85730; 93005; 93306; 99284; A9270-GY; G0378; G8978-GP-CJ; G8979-GP-CI; G8987-GO-CK; G8988-GO-CK; G8989-GO-CK; J1940; J7512

== ENCOUNTER 2017-12-30 09:19 | Inpatient (IN) | payer MEDICARE, MEDICAID ==
[2017-12-30] MEDS ORDERED: NS 0.9% 1000 ML* 1,000 ML IV ONE (09:44)
[2017-12-30] MEDS ORDERED: Naloxone* 0.4 MG/ML 1 ML VIAL IV PUSH ONE (09:44)
[2017-12-30] MEDS ORDERED: NS 0.9% 500 ML* 500 ML IV ONE (09:45)
[2017-12-30 10:03] LABS: ABS Basophils 0.1 10^3/ul (0-0.2); ABS Eosinophils 0.3 10^3/ul (0-0.6); ABS Lymphocytes 0.8 10^3/ul (1.0-4.8); ABS Monocytes 0.6 10^3/ul (0-0.8); ABS Neutrophils 7.1 10^3/ul (1.5-7.7); ABS Nucleated RBC 0 10^3/ul; Eosinophil % 3.3 % (0-6); Hematocrit 31 % (35-47); Hemoglobin 9.6 g/dl (12.0-16.0); Lymphocyte % 9.5 % (25-47); Mean Corpuscular HGB Conc 31 g/dl (31-36); Mean Corpuscular Hemoglobin 22 pg (27-31); Mean Corpuscular Volume 71 fL (80-97); Mean Platelet Volume 7.2 um3 (7.4-10.4); Nucleated Red Blood Cells % 0; Platelet Count 333 10^3/ul (150-450); Red Blood Count 4.35 10^6/ul (4.0-5.4); Red Cell Distribution Width 20 % (10.5-15); White Blood Count 8.9 10^3/ul (3.5-10.8)
--- NOTE | 2017-12-30 10:11 | RAD ---
HISTORY: Hypotension COMPARISONS: December 24, 2017 VIEWS: 1: frontal portable view of the chest at 10:00 AM FINDINGS: LINES AND TUBES: None. CARDIOMEDIASTINAL SILHOUETTE: The cardiomediastinal silhouette is normal for portable technique. PLEURA: The costophrenic angles are sharp. No pleural abnormalities are noted. LUNG PARENCHYMA: The lungs are clear. ABDOMEN: The upper abdomen is clear. There is no subphrenic gas. BONES AND SOFT TISSUES: There is postsurgical change to the cervical and upper thoracic spine. Degenerative changes are noted. IMPRESSION: NO ACTIVE CARDIOPULMONARY DISEASE.
[2017-12-30 10:18] LABS: EGFR Non-African American 61.2 (>60)
[2017-12-30 10:21] LABS: INR 0.96 (0.77-1.02)
[2017-12-30] MEDS: Gabapentin CAP(*) 300 MG PO SCH ×2 (14:58→21:26)
[2017-12-30] MEDS: tiZANidine TAB* 2 MG PO SCH ×2 (14:59→21:24)
[2017-12-30] MEDS: Heparin VIAL(*) 5000 UNITS/ML VIAL (FIVE THOUSAND) SUBCUT SCH ×2 (14:59→21:26)
[2017-12-30] MEDS: oxyCODONE TAB* 5 MG TAB PO PRN (15:47)
[2017-12-30] MEDS ORDERED: fentaNYL PATCH 25 MCG/HR TRANSDERM SCH (17:00)
[2017-12-30] MEDS: Atorvastatin* 20 MG TAB PO SCH (18:20)
[2017-12-30] MEDS: fentaNYL Patch Check Q Shift 1 NOTE SCH (18:58)
--- NOTE | 2017-12-30 19:55 | HP ---
CC: Dr. Fernando Fuller * HISTORY AND PHYSICAL: DATE OF ADMISSION: 12/30/17 PRIMARY CARE PROVIDER: Dr. Fernando Fuller. ATTENDING PHYSICIAN: Dr. Zaid Flores * (dictated by Salome Olmstead NP) CHIEF COMPLAINT: Dizziness. HISTORY OF PRESENT ILLNESS: Ms. Parks is a 72-year-old female with past medical history significant for coronary artery disease, status post non-ST elevated MD in August 2017; peripheral arterial disease; COPD; chronic diastolic congestive heart failure; GERD; anxiety; depression; hypothyroidism; history of DVT; rheumatoid arthritis; hypertension; hyperlipidemia, who states she had been in her usual state of health and feeling better since being discharged from the hospital on 12/28/17 when she developed dizziness this morning. The patient was hospitalized from 12/24/17 to 12/28/17 for an acute on chronic diastolic heart failure exacerbation where she was receiving furosemide. During her stay, she became hypotensive and had concern for a possible GI bleed. She was ultimately discharged on 12/28/17 without any Lasix as it was felt that she did not need it. The patient states this morning when she got up to take her morning medication, she noticed that she was dizzy, she lied down and closed her eyes, and felt as though her dizziness was worse. She was also having complaints of chest pressure. She reports using oxygen as needed at 2 L at home. She last used oxygen yesterday afternoon when she developed significant epistaxis due to dryness in her nose and this has resolved. She denies any fevers, chills. She reports shortness of breath that she reports is new and not her baseline. She denies any nausea, vomiting, diarrhea. She denies urinary symptoms such as frequency, urgency, or dysuria. Due to her chest discomfort and dizziness, she presented to the emergency room for further evaluation. While in the emergency room, the patient was initially noted to have a blood pressure of 61/41, she received 500 mL bolus, appeared to be hypovolemic. She also was reporting chest pressure, which resolved while in the emergency room. She had labs showing a sodium of 134, potassium 5.3, chloride 98, she had lactic acidosis with a lactic acid of 2.5. Troponin of 0.03. She had an EKG without acute ischemia. She had a chest x-ray showing no active cardiopulmonary disease. She had a stool for occult blood that was negative. While in the emergency room, the patient's daughter also stated that she was hypotensive in the past due to compressed spinal cord and was treated in [place] previously for this. The patient's systolic blood pressures are reportedly normally in the 120s. She had her 50 mcg fentanyl patch removed and her blood pressures improved to the one teens to 120s and the hospitalists were asked to evaluate the patient for admission. PAST MEDICAL HISTORY: 1. Coronary artery disease. 2. Myocardial infarction, August 2017. 3. Peripheral arterial disease. 4. COPD. 5. Chronic diastolic heart failure. 6. GERD. 7. Anxiety and depression. 8. Hypothyroidism. 9. DVT. 10. Rheumatoid arthritis. 11. Hypertension. 12. Hyperlipidemia. PAST SURGICAL HISTORY: 1. Status post bunionectomy. 2. Status post hysterectomy. 3. Status post bilateral cataract extractions. 4. Status post C-spine fusion. 5. Status post revision of C-spine fusion approximately 1 month ago. 6. Status post colectomy. MEDICATIONS: Home medications include: 1. Zanaflex 2 mg oral 3 times daily. 2. Prednisone 5 mg oral every morning. 3. Oxycodone 5 mg oral every 8 hours as needed for pain. 4. Fentanyl patch 50 mcg transdermal every 72 hours. 5. Forteo 2.4 mL subcutaneous daily. 6. Potassium chloride 20 mEq oral daily. 7. Omeprazole 20 mg oral daily. 8. Metoprolol tartrate 25 mg oral twice daily. 9. Magnesium oxide 800 mg oral daily. 10. Levothyroxine 50 mcg oral every morning. 11. Neurontin 300 mg oral 3 times daily. 12. Folic acid 1 mg oral every morning. 13. Ferrous sulfate 325 mg oral daily. 14. Pepcid 20 mg oral twice daily. 15. Colace 100 mg oral twice daily. 16. Vitamin D 400 mg oral twice daily. 17. Os-Eron D 1 tablet oral twice daily. 18. Bupropion 300 mg oral daily. 19. Atorvastatin 20 mg oral every evening. 20. Aspirin 325 mg oral twice daily. 21. Acetaminophen 500 mg oral every 8 hours as needed for fever or pain. ALLERGIES: CEPHALOSPORINS, LATEX. FAMILY HISTORY: The patient denies any family history of coronary artery disease, diabetes mellitus. The patient's mother had a history of laryngeal cancer. SOCIAL HISTORY: The patient is a former smoker, smoking a pack a day for 45 years. She denies alcohol or recreational drugs. Her daughters, Nela Lopez and Mackenzie Mendoza, will be her surrogate decision makers in the event she is unable to make decisions for herself. REVIEW OF SYSTEMS: I performed an 11-point review of systems. Other pertinent positives and negatives as mentioned in the history of present illness. Remaining review of systems is negative. PHYSICAL EXAMINATION GENERAL: The patient is alert, pleasant, and appears to be in no acute distress. HEENT: Normocephalic, atraumatic. Pupils are equal and reactive to light. Extraocular movements are intact. NECK: Neck is in a [place] J collar. RESPIRATORY: There is no accessory muscle use. The lungs are clear to auscultation bilateral. CARDIOVASCULAR: Regular rate and rhythm, S1 and S2 present. There are no murmurs, rubs, or gallops heard. ABDOMEN: Soft, nontender, nondistended. Bowel sounds present x4. EXTREMITIES: No lower extremity edema. DP, PT pulses are 2+ and symmetric. MUSCULOSKELETAL: There is no clubbing or cyanosis noted. The patient has got a good strength in all extremities. NEUROLOGIC: The patient is alert and oriented x4. Cranial nerves II through XII are grossly intact. PSYCHOLOGICAL: The patient is calm and cooperative. SKIN: There are no rashes seen. She has an open area in her posterior neck incision located midline and between her shoulder blades, this is approximately 0.9x0.7 cm and 0.5 cm deep (I didn't probe this wound, it previously had tunneling). She has two stage 3 pressure injuries to her left buttock. The proximal wound is about 1x0.8 cm and 0.4 cm deep and the distal wound is about 2x3cm and 0.5cm deep, this wound has undermining from 6 o'clock to 9 o'clock that is about 0.5 cm. The wound beds have granulation tissue and no surrounding erythema. DIAGNOSTIC STUDIES/LAB DATA: Sodium 134, potassium 5.2, chloride 98, CO2 29, BUN 23, creatinine 0.90, glucose 111. White blood cell count 8.9, hemoglobin 9.6, hematocrit 31, platelet count 333, lactic acid 2.5. Stool occult blood negative. Troponin 0.03. EKG shows a sinus rhythm with rate of 76. There are no acute signs of ischemia. This EKG is similar to previous from 12/25/17. Chest x-ray from today. Radiologist's impression: No active cardiopulmonary disease. IMPRESSION: Ms. Parks is a 72-year-old female with past medical history significant for coronary artery disease, peripheral arterial disease, chronic obstructive pulmonary disease, chronic diastolic heart failure, history of deep venous thrombosis, hypothyroidism, rheumatoid arthritis, hypertension, hyperlipidemia, who presented to the emergency room with complaints of dizziness and chest pressure. She will be admitted as an observation for dizziness and chest pain. ASSESSMENT/PLAN: 1. Chest pain. The patient's chest pain has resolved in the emergency room. Her initial troponin is 0.03. We will trend her troponins, recheck an EKG in the morning. 2. Dizziness. The patient states that she still has mild dizziness. I suspect this is secondary to dehydration. She received a 500 mL fluid bolus in the emergency room. She was also hypotensive. This could have been contributing to her dizziness. Her systolic blood pressures have improved. Check orthostatic vital signs. The patient had her fentanyl patch removed while in the emergency room. I am going to continue to hold her fentanyl patch. We might want to consider decreasing the dose of her fentanyl patch if we restarted as the dose may have been contributing to her dizziness. Not going to get an echo as she previously had an echo on her last admission on , showed no signs of aortic stenosis. Her ejection fraction was 50% to 55% . If the patient continues to have hypotension, we should consider further possibility of renal insufficiency and further work that up. 3. Chronic diastolic heart failure. The patient is not currently on any diuretics. We are going to hold on any diuretics at this time as she appears to be hypovolemic. We will get daily weights, strict I's and O's. She will be on a low- sodium diet. The patient had an echo on 12/28/17 showing an ejection fraction of 50% to 55%, abnormal left ventricular diastolic filling. 4. Pressure injuries and open incision. The patient has an opening in her surgical incision on her upper back/neck and 2 stage 3 pressure injuries to her left buttocks. These have been present and she has been seen by the wound clinic. I will ask the wound clinic to eval these, for now we will continue her on silver calcium alginate rope packing and a border gauze dressing. Frequent turn and repositioning. 5. Chronic obstructive pulmonary disease. The patient has no signs of an acute exacerbation. She will be continued on her as-needed oxygen. 6. Coronary artery disease. The patient will be continued on her home aspirin , metoprolol, and atorvastatin. 7. Hypothyroidism. The patient will be continued on her home levothyroxine. 8. History of deep venous thrombosis. The patient will be continued on her home twice-a-day aspirin dosing. 9. Rheumatoid arthritis. The patient will be continued on her home prednisone. Oxycodone as needed. 10. Hypertension. The patient is currently normotensive. I am going to continue her metoprolol with hold parameters. 11. Hyperlipidemia. She will be continued on her home atorvastatin. 12. Fluids, electrolytes, and nutrition. The patient will be on a low-sodium diet. 13. Code status. Do not resuscitate. She has a MOLST form in her chart. 14. DVT prophylaxis. She is at highest risk. We will begin on subcu heparin. I am going to hold SCDs in the setting of her heart failure. 15. Disposition. Observation. TIME SPENT: Time for this admission was approximately 60 minutes, greater than half of that was spent with the patient discussing medications, past medical history, the events leading up her arrival today and performing a physical examination. The case was then reviewed with the attending, Dr. Flores, who agrees with the plan of care. Reviewed by ROXANNE NEGRO 01/01/18 1440 [id number]/[facility] #: [id number] PHUC
[2017-12-30 20:12] LABS: Urine Appearance Cloudy; Urine Blood 2+ (Negative); Urine Color Yellow; Urine Ketones Negative (Negative); Urine Protein Negative (Negative); Urine Specific Gravity 1.015 (1.010-1.030); Urine Urobilinogen Negative (Negative)
[2017-12-30] MEDS ORDERED: Metoprolol Tartrate TAB* 25 MG PO SCH (21:00)
[2017-12-30] MEDS ORDERED: Cholecalciferol TAB* 400 UNIT PO SCH (21:00)
[2017-12-30] MEDS: Aspirin TAB* 325 MG PO SCH (21:24)
[2017-12-30] MEDS: Metoprolol Tartrate TAB* 25 MG PO SCH (21:25)
[2017-12-30] MEDS: Famotidine TAB* 20 MG PO SCH (21:25)
[2017-12-30] MEDS: Docusate CAP* 100 MG PO SCH (21:25)
[2017-12-30] MEDS: Calcium/Vitamin D TAB 250/125* TAB PO SCH (21:25)
[2017-12-31] MEDS: oxyCODONE TAB* 5 MG TAB PO PRN ×2 (04:45→13:42)
[2017-12-31] MEDS: Heparin VIAL(*) 5000 UNITS/ML VIAL (FIVE THOUSAND) SUBCUT SCH ×3 (05:52→21:36)
[2017-12-31] MEDS: Levothyroxine TAB* 50 MCG TAB PO SCH (05:52)
[2017-12-31] MEDS: fentaNYL Patch Check Q Shift 1 NOTE SCH ×2 (07:07→20:37)
[2017-12-31] MEDS: Cholecalciferol TAB* 400 UNIT PO SCH (08:04)
[2017-12-31] MEDS: tiZANidine TAB* 2 MG PO SCH ×3 (08:04→19:41)
[2017-12-31] MEDS: Aspirin TAB* 325 MG PO SCH ×2 (08:04→19:56)
[2017-12-31] MEDS: Magnesium Oxide TAB* 400 MG PO SCH (08:05)
[2017-12-31] MEDS: Ferrous Sulfate TAB* 325 MG PO SCH (08:05)
[2017-12-31] MEDS: Gabapentin CAP(*) 300 MG PO SCH ×3 (08:06→19:54)
[2017-12-31] MEDS: Famotidine TAB* 20 MG PO SCH ×2 (08:07→19:55)
[2017-12-31] MEDS: BuPROPion XL* 300 MG TAB.XL PO SCH (08:07)
[2017-12-31] MEDS: Folic Acid TAB* 1 MG PO SCH (08:07)
[2017-12-31] MEDS: predniSONE TAB* 5 MG PO SCH (08:08)
[2017-12-31] MEDS: Omeprazole CAP* 20 MG PO SCH (08:08)
[2017-12-31] MEDS: Docusate CAP* 100 MG PO SCH ×2 (08:08→19:55)
[2017-12-31] MEDS: Calcium/Vitamin D TAB 250/125* TAB PO SCH ×2 (08:09→19:55)
[2017-12-31] MEDS: Metoprolol Tartrate TAB* 25 MG PO SCH ×2 (08:09→20:03)
[2017-12-31 08:43] LABS: ABS Basophils 0 10^3/ul (0-0.2); ABS Eosinophils 0.3 10^3/ul (0-0.6); ABS Monocytes 0.6 10^3/ul (0-0.8); ABS Neutrophils 4.1 10^3/ul (1.5-7.7); ABS Nucleated RBC 0 10^3/ul; Eosinophil % 5.2 % (0-6); Hematocrit 31 % (35-47); Mean Corpuscular HGB Conc 32 g/dl (31-36); Mean Corpuscular Hemoglobin 22 pg (27-31); Mean Corpuscular Volume 70 fL (80-97); Mean Platelet Volume 7.1 um3 (7.4-10.4); Nucleated Red Blood Cells % 0; Platelet Count 346 10^3/ul (150-450); Red Blood Count 4.48 10^6/ul (4.0-5.4); Red Cell Distribution Width 19 % (10.5-15)
[2017-12-31 08:58] LABS: EGFR Non-African American 115.3 (>60)
[2017-12-31] MEDS ORDERED: Potassium Chlor TAB* 20 MEQ TAB.ER PO SCH (09:00)
--- NOTE | 2017-12-31 18:03 | PN ---
Subjective Date of Service: 12/31/17 Interval History: Patient seen and examined. States she is feeling very tired and weak, but denies SOB, no chest pain, no fever or chills. Pain is tolerable. Objective Active Medications: Acetaminophen (Tylenol Tab*) 650 mg PO Q4H PRN PRN Reason: FEVER/PAIN Aspirin (Aspirin Tab*) 325 mg PO BID [facility] Last Admin: 12/31/17 08:04 Dose: 325 mg Atorvastatin Calcium (Lipitor*) 20 mg PO QPM [facility] Last Admin: 12/30/17 18:20 Dose: 20 mg Bupropion HCl (Bupropion Xl*) 300 mg PO DAILY [facility] Last Admin: 12/31/17 08:07 Dose: 300 mg Calcium/Vitamin D (Oscal D Tab 250/125*) 1 tab PO BID [facility] Last Admin: 12/31/17 08:09 Dose: 1 tab Cholecalciferol (Vitamin D Tab*) 400 unit PO DAILY [facility] Last Admin: 12/31/17 08:04 Dose: 400 unit Docusate Sodium (Colace Cap*) 100 mg PO BID [facility] Last Admin: 12/31/17 08:08 Dose: 100 mg Famotidine (Pepcid Tab*) 20 mg PO BID [facility] Last Admin: 12/31/17 08:07 Dose: 20 mg Fentanyl (Duragesic Patch 25 Mcg/Hr*) 25 mcg TRANSDERM Q72H [facility] Last Admin: 12/30/17 18:17 Dose: 25 mcg Ferrous Sulfate (Ferrous Sulfate Tab*) 325 mg PO DAILY [facility] Last Admin: 12/31/17 08:05 Dose: 325 mg Folic Acid (Folvite Tab*) 1 mg PO QAM [facility] Last Admin: 12/31/17 08:07 Dose: 1 mg Gabapentin (Neurontin Cap(*)) 300 mg PO TID [facility] Last Admin: 12/31/17 13:42 Dose: 300 mg Heparin Sodium (Porcine) (Heparin Vial(*)) 5,000 units SUBCUT Q8HR [facility] Last Admin: 12/31/17 13:43 Dose: 5,000 units Levothyroxine Sodium (Synthroid Tab*) 50 mcg PO 0600 [facility] Last Admin: 12/31/17 05:52 Dose: 50 mcg Magnesium Oxide (Magox 400 Tab*) 800 mg PO DAILY [facility] Last Admin: 12/31/17 08:05 Dose: 800 mg Metoprolol Tartrate (Lopressor Tab*) 12.5 mg PO BID [facility] Omeprazole (Prilosec Cap*) 20 mg PO 0730 [facility] Last Admin: 12/31/17 08:08 Dose: 20 mg Oxycodone HCl (Roxycodone Tab*) 5 mg PO Q8H PRN PRN Reason: PAIN Last Admin: 12/31/17 13:42 Dose: 5 mg Pharmacy Profile Note (Fentanyl Patch Check Q Shift) 1 note N/A 0700,1900 [facility] Last Admin: 12/31/17 07:07 Dose: 1 note Prednisone (Deltasone Tab*) 5 mg PO QAM [facility] Last Admin: 12/31/17 08:08 Dose: 5 mg Tizanidine HCl (Zanaflex Tab*) 2 mg PO TID [facility] Last Admin: 12/31/17 13:42 Dose: 2 mg Vital Signs - 8 hr 12/31/17 12/31/17 16:01 17:00 Temperature 98.1 F Pulse Rate 84 Respiratory 16 18 Rate Blood Pressure 103/47 (mmHg) O2 Sat by Pulse 99 Oximetry Oxygen Devices in Use Now: Nasal Cannula Appearance: Alert, NAD Ears/Nose/Mouth/Throat: NL Teeth, Lips, Gums Neck: NL Appearance and Movements; NL JVP, - - c-collar in place, did not visualize wounds, dressing CDI Respiratory: Symmetrical Chest Expansion and Respiratory Effort, Clear to Auscultation Cardiovascular: NL Sounds; No Murmurs; No JVD, RRR Abdominal: NL Sounds; No Tenderness; No Distention Extremities: No Edema Skin: - - decub dressings CDI Neurological: Alert and Oriented x 3 Nutrition: Taking PO's Result Diagrams: 12/31/17 08:32 12/31/17 08:32 Diagnostic Imaging: Patient Name: NAEL JAUREGUI Medical Record#: [id number] Ordering Physician: Marcel Bender MD Acct.#: [id number] : 1945 Age: 72 Sex: F Location: EMERGENCY DEPARTMENT Exam Date: 12/30/17941 ADM Status: PRE ER Order Information: CHEST AP PORTABLE Accession Number: [id number] CPT: 06108 HISTORY: Hypotension COMPARISONS: December 24, 2017 VIEWS: 1: frontal portable view of the chest at 10:00 AM FINDINGS: LINES AND TUBES: None. CARDIOMEDIASTINAL SILHOUETTE: The cardiomediastinal silhouette is normal for portable technique. PLEURA: The costophrenic angles are sharp. No pleural abnormalities are noted. LUNG PARENCHYMA: The lungs are clear. ABDOMEN: The upper abdomen is clear. There is no subphrenic gas. BONES AND SOFT TISSUES: There is postsurgical change to the cervical and upper thoracic spine. Degenerative changes are noted. IMPRESSION: NO ACTIVE CARDIOPULMONARY DISEASE. <Electronically signed by Jassi Hurt MD in [place]> 12/30/17 1008 Dictated By: Jassi Hurt MD Dictated Date/Time: 12/30/17 1008 Transcribed Date/Time: 12/30/17 1007 Copy to: Assess/Plan/Problems-Billing Assessment: - Patient Problems (1) Hypotension Comment: - Had similar issues with hypotension before last discharge - Decrease BB and decrease dose of fentanyl patch, seems to be improving - Likley medication related, discussed at length with patient regarding decreasing narcotics (2) Chronic pain Code(s): G89.29 - OTHER CHRONIC PAIN SNOMED Code(s): 46951153 Comment: - Continue Fentanyl patch at lower dose, gabapentin, cyclobenzaprine and oxycodone. (3) Diastolic CHF Code(s): I50.30 - UNSPECIFIED DIASTOLIC (CONGESTIVE) HEART FAILURE SNOMED Code (s): 972897057 Comment: - No exacerbation, daily weights and continue home medications (4) Stage II decubitus ulcer Code(s): L89.92 - PRESSURE ULCER OF UNSPECIFIED SITE, STAGE 2 SNOMED Code(s): 079961497 Comment: - Wound care orders placed - Continue offloading and T&P Q2h (5) Weakness Code(s): R53.1 - WEAKNESS SNOMED Code(s): 87733535 Comment: - 2/2 RA and cervical stenosis - Continue physical rehab as tolerated (6) CAD (coronary artery disease) Code(s): I25.10 - ATHSCL HEART DISEASE OF [place] CORONARY ARTERY W/O ANG PCTRS SNOMED Code(s): 90840236 Comment: - Continue ASA, continue lipitor. (7) COPD (chronic obstructive pulmonary disease) Code(s): J44.9 - CHRONIC OBSTRUCTIVE PULMONARY DISEASE, UNSPECIFIED SNOMED Code(s): 16319793 Comment: - Not in exacerbation (8) GERD (gastroesophageal reflux disease) Code(s): K21.9 - GASTRO-ESOPHAGEAL REFLUX DISEASE WITHOUT ESOPHAGITIS SNOMED Code(s): 771897126 Comment: - Continue Famotidine and Omeprazole (9) Rheumatoid arthritis Code(s): M06.9 - RHEUMATOID ARTHRITIS, UNSPECIFIED SNOMED Code(s): 96701628 Comment: - On low dose prednisone 5mg daily, plaquenil was stopped for wound healing - Pain control (10) DVT prophylaxis Code(s): KRQ7307 - SNOMED Code(s): 455218193 Comment: - HSQ Status and Disposition: If BP remains stable, will likely DC tomorrow with follow up with [facility].
[2017-12-31] MEDS: Acetaminophen TAB* 325 MG PO PRN (18:09)
[2017-12-31] MEDS: Atorvastatin* 20 MG TAB PO SCH (18:09)
--- NOTE | 2017-12-31 19:04 | ED ---
Darren Sandoval Gabriel, scribed for Marcel Bender MD on 12/30/17 at 0945 . Dizziness - HPI Summary HPI Summary: This patient is a 72 year old F BIBA to [facility] accompanied by her daughter with a chief complaint of dizziness that began when she got up to take her medicine this morning. She states she tried to lay down and close her eyes but this made the lightheadedness worse. She is on a large amount of pain medication and took them all this morning. She was recently admitted for CHF and has a cervical fracture that is healing. The patient rates the pain 4/10 in severity. Patient reports ELIZABETH and mild chest heaviness. Patient denies melena, recent illness, decreased in appetite, CP, numbness, and SOB. Daughter states last time she was hypotensive it was due to a compressed spinal cord and was seen in [place] for this. Hx of spinal cord compression and GI bleed. Daughter states she is normally 120s systolic. - History Of Current Complaint Stated Complaint: WEAKNESS Time Seen by Provider: 12/30/17 09:34 Hx Obtained From: Patient Onset/Duration: Suddenly Timing: Constant Severity Initially: Moderate Severity Currently: Moderate Character: Lightheaded Aggravating Factor(s): Other - closing eyes Associated Signs And Symptoms: Positive: Negative - melena, recent illness, decreased in appetite, CP, SOB,, Other: - ELIZABETH, mild chest heaviness - Allergies/Home Medications Allergies/Adverse Reactions: Allergies Allergy/AdvReac Type Severity Reaction Status Date / Time Cephalosporins Allergy Abdominal Verified 12/24/17 19:08 Pain latex Allergy Rash Verified 12/24/17 19:08 PMH/Surg Hx/FS Hx/Imm Hx Endocrine/Hematology History: Reports: Hx Anticoagulant Therapy - heparin for DVT prophylaxis, Hx Thyroid Disease - hypothyroid, Hx Anemia Denies: Hx Diabetes, Hx Systemic Lupus Erythematosus Cardiovascular History: Reports: Hx Angina, Hx Angioplasty, Hx Cardiac Arrest, Hx Congestive Heart Failure, Hx Coronary Artery Disease - stent placed, Hx Hypercholesterolemia, Hx Hypertension, Hx Myocardial Infarction, Other Cardiovascular Problems/Disorders - DR. DUNLAP Denies: Hx Pacemaker/ICD, Hx Valvular Heart Disease Respiratory History: Reports: Hx Chronic Obstructive Pulmonary Disease (COPD), Other Respiratory Problems/Disorders - OCCASIONALLY DIFFICULTY BREATHING- PRN PROVENTIL- STATES HELPS Denies: Hx Asthma, Hx Lung Cancer, Hx Pneumonia, Hx Seasonal Allergies, Hx Sleep Apnea GI History: Reports: Hx Gall Bladder Disease - cholecystectomy, Hx Gastroesophageal Reflux Disease - ON MEDICATION FOR, Hx Gastrointestinal Bleed, Other GI Disorders - colitis History: Reports: Hx Kidney Infection, Hx Kidney Stones Denies: Hx Dialysis, Hx Renal Disease Musculoskeletal History: Reports: Hx Arthritis, Hx Rheumatoid Arthritis, Hx Back Problems, Hx Fibromyalgia, Hx Osteoporosis, Other Musculoskeletal History - herniated disc back T5 and cervical area, spinal cord compression Sensory History: Reports: Hx Cataracts, Hx Contacts or Glasses - Reading glasses Denies: Hx Glaucoma, Hx Hearing Aid Opthamlomology History: Reports: Hx Cataracts, Hx Contacts or Glasses - Reading glasses Denies: Hx Glaucoma Neurological History: Reports: Hx Migraine - RARELY, Hx Seizures Denies: Hx Nerve Disease, Hx Spinal Cord Injury, Hx Transient Ischemic Attacks (TIA) Psychiatric History: Reports: Hx Anxiety - ON MEDICATION FOR, Hx Depression - ON MEDICATION FOR Denies: Hx Panic Disorder - Surgical History Surgery Procedure, Year, and Place: Cardiac stent; right hand surgery; left foot surgery; neck surgery, cholecystectomy, hysterectomy, emergency bowel block (>20 years ago) Hx Anesthesia Reactions: No Infectious Disease History: Reports: Hx of Known/Suspected MRSA - Family History Known Family History: Positive: Hypertension, Other - [place]. cancer. TIA Negative: Seizure Disorder - Social History Occupation: Retired Lives: [facility] [employer] Alcohol Use: None Hx Substance Use: No Substance Use Type: Reports: None Hx Tobacco Use: Yes - not currently Smoking Status (MU): Former Smoker Type: Cigarettes Amount Used/How Often: 1 PPD X 45 YEARS Length of Time of Smoking/Using Tobacco: 48 years Have You Smoked in the Last Year: No Review of Systems Constitutional: Negative - recent illness Negative: Fever, Chills Negative: Erythema Negative: Sore Throat Positive: Chest Pain Negative: Shortness Of Breath, Cough Gastrointestinal: Negative - melena Negative: Abdominal Pain, Vomiting, Nausea Negative: dysuria, hematuria Negative: Myalgia, Edema Negative: Rash Neurological: Other - dizziness Positive: Headache. Negative: Numbness All Other Systems Reviewed And Are Negative: Yes Physical Exam - Summary Physical Exam Summary: Constitutional: Well-developed, Well-nourished, Alert. (-) Distressed Skin: Warm, Dry HENT: Normocephalic; Atraumatic Eyes: Conjunctiva normal Neck:. (-) Stridor, (-) Tracheal deviation, I removed the Barnard J collar and there is no JVD Cardio: Rhythm regular, rate normal, Heart sounds normal; Intact distal pulses; The pedal pulses are 2+ and symmetric. Radial pulses are 2+ and symmetric. (-) Murmur Pulmonary/Chest wall: Effort normal. (-) Respiratory distress, (-) Wheezes, (-) Rales Abd: Soft. (-) Tenderness, (-) Distension, (-) Guarding, (-) Rebound Musculoskeletal: (-) Edema Lymph: (-) Cervical adenopathy Neuro: Alert, Oriented x3, Strength normal, Cranial nerves II-XII are grossly intact. (-) Dysmetria, (-) Nystagmus, (-) Ataxia by finger to nose testing, (-) Sensory deficit. Psych: Mood and affect Normal Rectal: No adin blood, Bedside US reveals: no significant pericardial effusion and low central venous pressure Triage Information Reviewed: Yes Vital Signs Reviewed: Yes Diagnostics - Laboratory Result Diagrams: 12/30/17 09:40 12/30/17 09:40 Lab Statement: Any lab studies that have been ordered have been reviewed, and results considered in the medical decision making process. - Radiology CXR Radiology Interpretation Completed By: Radiologist - no active cardiopulmonary disease ED physician has reviewed this radiology report. - EKG 1029 Cardiac Rate: NL EKG Rhythm: Sinus Rhythm - at 76 BPM EKG Interpretation: no STEMI Re-Evaluation - Re-Evaluation First Eval Re-Evaluation Time: 09:43 Change: Unchanged Comment: Pt was found to be hypotensive and was told we were going to need to reverse her pain medications in an attempt to restore her BP. Second Eval Re-Evaluation Time: 11:28 Change: Improved Comment: The patient is feeling better Bp is 100 systolic, CP has resolved, and she is feeling better. Dizzy Course/Dx - Course Assessment/Plan: This patient is a 72 year old F BIBA to [facility] accompanied by her daughter with a chief complaint of dizziness that began when she got up to take her medicine this morning. She states she tried to lay down and close her eyes but this made the lightheadedness worse. She is on a large amount of pain medication and took them all this morning. She was recently admitted for CHF and has a cervical fracture that is healing. The patient rates the pain 4/10 in severity. Patient reports ELIZABETH and mild chest heaviness. Patient denies melena, recent illness, decreased in appetite, CP, numbness, and SOB. Daughter states last time she was hypotensive it was due to a compressed spinal cord and was seen in [place] for this. Hx of spinal cord compression and GI bleed. Daughter states she is normally 120s systolic. An EKG reveals NSR and no STEMI. CXR reveals, per radiologist, no active cardiopulmonary disease. Test results with no significant abnormalities except for a lactic of 2.5. In the ED course the patient was given narcan to reverse her pain meds and IV fluids. Patient will be admitted. The patient is agreeable with this plan. - Diagnoses Provider Diagnoses: Hypotension, Hypovolemia - Provider Notifications Discussed Care Of Patient With: Salome Olmstead Time Discussed With Above Provider: 11:31 Instructed by Provider To: Admit As Inpatient Discharge - Sign-Out/Discharge Documenting (check all that apply): Discharge/Admit/Transfer - admitted - Discharge Plan Condition: Fair Disposition: ADMITTED TO [facility] Referrals: Fernando Fuller DO [Primary Care Provider] - The documentation as recorded by the Darren erazo Gabriel accurately reflects the service I personally performed and the decisions made by , Marcel Bender MD.
[2018-01-01] MEDS: oxyCODONE TAB* 5 MG TAB PO PRN ×3 (00:57→17:42)
[2018-01-01] MEDS: Acetaminophen TAB* 325 MG PO PRN ×3 (01:57→20:39)
[2018-01-01] MEDS: Heparin VIAL(*) 5000 UNITS/ML VIAL (FIVE THOUSAND) SUBCUT SCH ×3 (05:25→22:45)
[2018-01-01] MEDS: Levothyroxine TAB* 50 MCG TAB PO SCH (05:27)
[2018-01-01] MEDS: fentaNYL Patch Check Q Shift 1 NOTE SCH ×2 (08:17→19:39)
[2018-01-01] MEDS: Cholecalciferol TAB* 400 UNIT PO SCH (08:43)
[2018-01-01] MEDS: tiZANidine TAB* 2 MG PO SCH ×3 (08:43→22:45)
[2018-01-01] MEDS: Famotidine TAB* 20 MG PO SCH ×2 (08:43→20:41)
[2018-01-01] MEDS: Ferrous Sulfate TAB* 325 MG PO SCH (08:43)
[2018-01-01] MEDS: Aspirin TAB* 325 MG PO SCH ×2 (08:44→20:41)
[2018-01-01] MEDS: Folic Acid TAB* 1 MG PO SCH (08:44)
[2018-01-01] MEDS: Metoprolol Tartrate TAB* 25 MG PO SCH ×2 (08:44→20:38)
[2018-01-01] MEDS: predniSONE TAB* 5 MG PO SCH (08:44)
[2018-01-01] MEDS: Docusate CAP* 100 MG PO SCH ×2 (08:45→20:40)
[2018-01-01] MEDS: Magnesium Oxide TAB* 400 MG PO SCH (08:46)
[2018-01-01] MEDS: Calcium/Vitamin D TAB 250/125* TAB PO SCH ×2 (08:46→20:40)
[2018-01-01] MEDS: BuPROPion XL* 300 MG TAB.XL PO SCH (08:47)
[2018-01-01] MEDS: Gabapentin CAP(*) 300 MG PO SCH ×3 (08:47→20:40)
[2018-01-01] MEDS: Omeprazole CAP* 20 MG PO SCH (08:48)
--- NOTE | 2018-01-01 17:22 | PN ---
Subjective Date of Service: 01/01/18 Interval History: Patient seen and examined. States last night had leg spasms and requested RN for her medication for "spasms" but RN was unable to give. Upon examination of MAR, zanaflex was given early as opposed to bedtime. Will re-time for today. Otherwise, she denies SOB, no chest pain, chronic pain at baseline and BP stabilizing. Objective Active Medications: Acetaminophen (Tylenol Tab*) 650 mg PO Q4H PRN PRN Reason: FEVER/PAIN Last Admin: 01/01/18 14:02 Dose: 650 mg Aspirin (Aspirin Tab*) 325 mg PO BID [facility] Last Admin: 01/01/18 08:44 Dose: 325 mg Atorvastatin Calcium (Lipitor*) 20 mg PO QPM [facility] Last Admin: 12/31/17 18:09 Dose: 20 mg Bupropion HCl (Bupropion Xl*) 300 mg PO DAILY [facility] Last Admin: 01/01/18 08:47 Dose: 300 mg Calcium/Vitamin D (Oscal D Tab 250/125*) 1 tab PO BID [facility] Last Admin: 01/01/18 08:46 Dose: 1 tab Cholecalciferol (Vitamin D Tab*) 400 unit PO DAILY [facility] Last Admin: 01/01/18 08:43 Dose: 400 unit Docusate Sodium (Colace Cap*) 100 mg PO BID [facility] Last Admin: 01/01/18 08:45 Dose: 100 mg Famotidine (Pepcid Tab*) 20 mg PO BID [facility] Last Admin: 01/01/18 08:43 Dose: 20 mg Fentanyl (Duragesic Patch 25 Mcg/Hr*) 25 mcg TRANSDERM Q72H [facility] Last Admin: 12/30/17 18:17 Dose: 25 mcg Ferrous Sulfate (Ferrous Sulfate Tab*) 325 mg PO DAILY [facility] Last Admin: 01/01/18 08:43 Dose: 325 mg Folic Acid (Folvite Tab*) 1 mg PO QAM [facility] Last Admin: 01/01/18 08:44 Dose: 1 mg Gabapentin (Neurontin Cap(*)) 300 mg PO TID [facility] Last Admin: 01/01/18 14:01 Dose: 300 mg Heparin Sodium (Porcine) (Heparin Vial(*)) 5,000 units SUBCUT Q8HR [facility] Last Admin: 01/01/18 14:02 Dose: 5,000 units Levothyroxine Sodium (Synthroid Tab*) 50 mcg PO 0600 [facility] Last Admin: 01/01/18 05:27 Dose: 50 mcg Magnesium Oxide (Magox 400 Tab*) 800 mg PO DAILY [facility] Last Admin: 01/01/18 08:46 Dose: 800 mg Metoprolol Tartrate (Lopressor Tab*) 12.5 mg PO BID [facility] Last Admin: 01/01/18 08:44 Dose: 12.5 mg Omeprazole (Prilosec Cap*) 20 mg PO 0730 [facility] Last Admin: 01/01/18 08:48 Dose: 20 mg Oxycodone HCl (Roxycodone Tab*) 5 mg PO Q8H PRN PRN Reason: PAIN Last Admin: 01/01/18 08:48 Dose: 5 mg Pharmacy Profile Note (Fentanyl Patch Check Q Shift) 1 note N/A 0700,1900 [facility] Last Admin: 01/01/18 08:17 Dose: 1 note Prednisone (Deltasone Tab*) 5 mg PO QAM [facility] Last Admin: 01/01/18 08:44 Dose: 5 mg Tizanidine HCl (Zanaflex Tab*) 2 mg PO 0900,1400,2200 [facility] Last Admin: 01/01/18 14:09 Dose: 2 mg Vital Signs - 8 hr 01/01/18 01/01/18 01/01/18 11:29 12:30 14:01 Temperature 99.2 F Pulse Rate 80 Respiratory 18 18 18 Rate Blood Pressure 105/53 (mmHg) O2 Sat by Pulse 99 Oximetry Oxygen Devices in Use Now: Nasal Cannula Appearance: Alert, NAD Eyes: No Scleral Icterus, PERRLA Ears/Nose/Mouth/Throat: NL Teeth, Lips, Gums, Mucous Membranes Moist Neck: NL Appearance and Movements; NL JVP, - - cervical collar in place Respiratory: Symmetrical Chest Expansion and Respiratory Effort Cardiovascular: NL Sounds; No Murmurs; No JVD, RRR, No Edema Abdominal: NL Sounds; No Tenderness; No Distention Extremities: No Edema Skin: - - wounds dressed and CDI Neurological: Alert and Oriented x 3 - 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 CARDIOMEDIASTINAL SILHOUETTE: The cardiomediastinal silhouette is normal for portable technique. PLEURA: The costophrenic angles are sharp. No pleural abnormalities are noted. LUNG PARENCHYMA: The lungs are clear. ABDOMEN: The upper abdomen is clear. There is no subphrenic gas. BONES AND SOFT TISSUES: There is postsurgical change to the cervical and upper thoracic spine. Degenerative changes are noted. IMPRESSION: NO ACTIVE CARDIOPULMONARY DISEASE. <Electronically signed by Jassi Hurt MD in [place]> 12/30/17 1008 Dictated By: Jassi Hurt MD Dictated Date/Time: 12/30/17 1008 Transcribed Date/Time: 12/30/17 1007 Copy to: Assess/Plan/Problems-Billing Assessment: This is a 72 year old female with history of severe RN, cervical stenosis (s/p fusion), CAD and complex comorbities that was admitted for symptomatic hypotension and SOB. - Patient Problems (1) Hypotension Comment: - Had similar issues with hypotension before last discharge - Responding/resolving decreased BB and fentanyl patch (2) Chronic pain Code(s): G89.29 - OTHER CHRONIC PAIN SNOMED Code(s): 58786381 Comment: - Continue Fentanyl patch at lower dose, gabapentin, zanaflex and oxycodone. (3) Diastolic CHF Code(s): I50.30 - UNSPECIFIED DIASTOLIC (CONGESTIVE) HEART FAILURE SNOMED Code (s): 398778183 Comment: - No exacerbation, daily weights and continue home medications (4) Stage II decubitus ulcer Code(s): L89.92 - PRESSURE ULCER OF UNSPECIFIED SITE, STAGE 2 SNOMED Code(s): 079104269 Comment: - Wound care orders placed - Continue offloading and T&P Q2h (5) Weakness Code(s): R53.1 - WEAKNESS SNOMED Code(s): 09979137 Comment: - 2/2 RA and cervical stenosis - Continue physical rehab as tolerated (6) CAD (coronary artery disease) Code(s): I25.10 - ATHSCL HEART DISEASE OF [place] CORONARY ARTERY W/O ANG PCTRS SNOMED Code(s): 87989733 Comment: - Continue ASA, continue lipitor. (7) COPD (chronic obstructive pulmonary disease) Code(s): J44.9 - CHRONIC OBSTRUCTIVE PULMONARY DISEASE, UNSPECIFIED SNOMED Code(s): 38093922 Comment: - Not in exacerbation (8) GERD (gastroesophageal reflux disease) Code(s): K21.9 - GASTRO-ESOPHAGEAL REFLUX DISEASE WITHOUT ESOPHAGITIS SNOMED Code(s): 180257161 Comment: - Continue Famotidine and Omeprazole (9) Rheumatoid arthritis Code(s): M06.9 - RHEUMATOID ARTHRITIS, UNSPECIFIED SNOMED Code(s): 52895409 Comment: - On low dose prednisone 5mg daily, plaquenil was stopped for wound healing - Pain control (10) DVT prophylaxis Code(s): EGR4363 - SNOMED Code(s): 763889799 Comment: - HSQ Status and Disposition: Modest improvement in BP. DC in AM. Coordinated with CM.
[2018-01-01] MEDS: Atorvastatin* 20 MG TAB PO SCH (17:38)
[2018-01-01] MEDS: Diazepam TAB(*) 5 MG PO PRN (18:25)
[2018-01-02] MEDS: oxyCODONE TAB* 5 MG TAB PO PRN ×2 (02:59→10:53)
[2018-01-02] MEDS: Acetaminophen TAB* 325 MG PO PRN (03:06)
[2018-01-02] MEDS: Levothyroxine TAB* 50 MCG TAB PO SCH (05:57)
[2018-01-02] MEDS: Heparin VIAL(*) 5000 UNITS/ML VIAL (FIVE THOUSAND) SUBCUT SCH (05:58)
[2018-01-02] MEDS: Diazepam TAB(*) 5 MG PO PRN (06:05)
[2018-01-02] MEDS: fentaNYL Patch Check Q Shift 1 NOTE SCH (07:01)
[2018-01-02] MEDS: Magnesium Oxide TAB* 400 MG PO SCH (10:50)
[2018-01-02] MEDS: tiZANidine TAB* 2 MG PO SCH (10:50)
[2018-01-02] MEDS: Aspirin TAB* 325 MG PO SCH (10:50)
[2018-01-02] MEDS: Metoprolol Tartrate TAB* 25 MG PO SCH (10:51)
[2018-01-02] MEDS: Ferrous Sulfate TAB* 325 MG PO SCH (10:51)
[2018-01-02] MEDS: BuPROPion XL* 300 MG TAB.XL PO SCH (10:51)
[2018-01-02] MEDS: Gabapentin CAP(*) 300 MG PO SCH (10:51)
[2018-01-02] MEDS: Cholecalciferol TAB* 400 UNIT PO SCH (10:51)
[2018-01-02] MEDS: Folic Acid TAB* 1 MG PO SCH (10:52)
[2018-01-02] MEDS: Famotidine TAB* 20 MG PO SCH (10:53)
[2018-01-02] MEDS: Omeprazole CAP* 20 MG PO SCH (10:53)
[2018-01-02] MEDS: Calcium/Vitamin D TAB 250/125* TAB PO SCH (10:54)
[2018-01-02] MEDS: predniSONE TAB* 5 MG PO SCH (10:55)
[2018-01-02] MEDS: Docusate CAP* 100 MG PO SCH (10:55)
[2018-01-02 12:25] VITALS: BP 119/66
--- NOTE | 2018-01-04 11:40 | DS ---
AMENDED REPORT NOW INCLUDES COSIGNER DESIGNATION - ESIGNED BEFORE ADJUSTMENTS DISCHARGE SUMMARY: DATE OF ADMISSION: 12/31/17 DATE OF DISCHARGE: 01/02/18 ADMITTING PHYSICIAN: Dr. Zaid Flores ATTENDING HOSPITALIST: Dr. Lu Araujo * (DICTATED BY LATISHA LOPEZ) PRIMARY CARE PROVIDER: Dr. Fernando Fuller. CHIEF COMPLAINT: Dizziness. ADMITTING DIAGNOSES: 1. Dizziness. 2. Coronary artery disease. 3. History of myocardial infarction in August 2017. 4. Peripheral arterial disease. 5. Chronic obstructive pulmonary disease. 6. Chronic diastolic heart failure. 7. Gastroesophageal reflux disease. 8. Anxiety and depression. 9. Hypothyroidism. 10. Rheumatoid arthritis. 11. Hypertension. 12. Hyperlipidemia. DISCHARGE DIAGNOSES: 1. Dizziness. 2. Coronary artery disease. 3. History of myocardial infarction in August 2017. 4. Peripheral arterial disease. 5. Chronic obstructive pulmonary disease. 6. Chronic diastolic heart failure. 7. Gastroesophageal reflux disease. 8. Anxiety and depression. 9. Hypothyroidism. 10. Rheumatoid arthritis. 11. Hypertension. 12. Hyperlipidemia. HISTORY OF PRESENT ILLNESS: Ms. Parks is a pleasant 72-year-old female with multiple past medical history, issues including coronary artery disease, status post non-ST elevation NC in August of this year that has been treated conservatively, and she also has a history of peripheral artery disease, COPD, chronic diastolic congestive heart failure and anxiety, depression, multiple orthopedic issues with rheumatoid arthritis. She is status post C-spine fixation, for which she has been wearing a C-spine collar on a permanent basis. The patient was just discharged from the hospital on 12/28/17 with a diagnosis of diastolic heart failure. She has been doing well at home since her discharge, and on admission date, she appeared to have become hypotensive and had concern for possible GI bleed. She felt dizzy at home and noticed that she has not been drinking enough fluid and she might have been dehydrated. She has been using oxygen as needed at home at 2 L; however, she denied any significant shortness of breath. She also developed some chest discomfort associated with her dizziness as well as an episode of epistaxis due to dryness in her nose from using oxygen at home. Given her chest discomfort and her known history of non-STEMI back in August, she presented to the emergency room for further evaluation. She had laboratory workup that revealed her baseline sodium of 134 and normal troponin at her baseline of 0.03. She was noticed to have a blood pressure of 61/41, for which she was given IV fluid boluses and resuscitation. She eventually had her blood pressure checked again and improved to 110s to 120s prior to her admission. She has been reporting that she has been using a high dose of fentanyl patch to take care of her chronic aches and pain and she thinks that might also contribute to her episodes of hypotension that cause her dizziness. HOSPITAL COURSE: The patient was admitted under hospitalist services to telemetry unit for close monitoring. She had laboratory workup on a daily basis that revealed stable hemoglobin and hematocrit with no evidence of acute blood loss or GI bleeding. Her occult stool was checked and it was negative for any possible GI bleeding. Her lactic acid eventually was corrected after aggressive hydration. She continued to improve on a daily basis, and on discharge morning, patient was examined. She seemed to be comfortable and her chest revealed normal lung sounds with no rales or rhonchi. Her heart was regular rate and rhythm with no evidence of murmurs or gallops. She had no edema at extremities. She will be discharged to home today and will follow up with her primary care physician in a few days. DISCHARGE MEDICATIONS: Her discharge medications include: 1. Acetaminophen 500 mg p.o. q.8 hours as needed for fever or pain. 2. Aspirin 325 mg p.o. b.i.d. 3. Lipitor 20 mg p.o. q.h.s. 4. Bupropion XL 300 mg p.o. daily. 5. Calcium with vitamin D 1 tablet p.o. b.i.d. 6. Vitamin D 400 mg p.o. b.i.d. 7. Colace 100 mg p.o. b.i.d. 8. Pepcid 20 mg p.o. b.i.d. 9. Fentanyl patch 50 mcg transdermal every 3 days as instructed. 10. Ferrous sulfate 325 mg p.o. daily. 11. Folic acid 1 mg p.o. q.a.m. 12. Neurontin 300 mg p.o. t.i.d. 13. Synthroid 50 mcg p.o. q.a.m. 14. Mag oxide 400 mg p.o. daily. 15. Lopressor 25 mg p.o. b.i.d. 16. Prilosec 20 mg p.o. daily. 17. Roxicodone 5 mg p.o. q.8 hours p.r.n. for aches and pains. 18. Potassium chloride 20 mEq p.o. daily. 19. Prednisone 5 mg p.o. q.a.m. 20. Forteo 2.4 mL subcutaneous injection daily. 21. Zanaflex 2 mg p.o. t.i.d. LATISHA LOPEZ [id number]/[facility] #: [id number] PHUC
== END 2018-01-02 16:15 | disposition home or self-care (01) | DRG 91 ==
LOC: ED 09:19 → MEDTELE 12:04 → OBSVTOIN 12-31 15:33
PROVIDERS: ADMIT Internal Medicine; ATTEND Student in an Organized Health Care Education/Training Program
DX: G89.29 Other chronic pain (principal); L89.323 Pressure ulcer of left buttock, stage 3; I50.32 Chronic diastolic (congestive) heart failure; T81.31XA Disruption of external operation (surgical) wound, not elsewhere classified, initial encounter; R53.1 Weakness; I25.10 Atherosclerotic heart disease of native coronary artery without angina pectoris; J44.9 Chronic obstructive pulmonary disease, unspecified; M06.9 Rheumatoid arthritis, unspecified; K21.9 Gastro-esophageal reflux disease without esophagitis; I73.9 Peripheral vascular disease, unspecified; F41.9 Anxiety disorder, unspecified; F32.9 Major depressive disorder, single episode, unspecified; E03.9 Hypothyroidism, unspecified; I11.0 Hypertensive heart disease with heart failure; E78.5 Hyperlipidemia, unspecified; E86.1 Hypovolemia; Z79.1 Long term (current) use of non-steroidal anti-inflammatories (NSAID); Z79.82 Long term (current) use of aspirin; Z79.891 Long term (current) use of opiate analgesic; Z86.718 Personal history of other venous thrombosis and embolism; I25.2 Old myocardial infarction; Z79.52 Long term (current) use of systemic steroids; Z79.899 Other long term (current) drug therapy; Z88.8 Allergy status to other drugs, medicaments and biological substances; Z91.040 Latex allergy status; Z82.49 Family history of ischemic heart disease and other diseases of the circulatory system; Z83.3 Family history of diabetes mellitus; Z80.0 Family history of malignant neoplasm of digestive organs; Z87.891 Personal history of nicotine dependence; X58.XXXA Exposure to other specified factors, initial encounter
CPT/HCPCS: 36415; 71045; 80048; 80053; 81003; 81015; 82272; 83605; 83880; 84439; 84443; 84484; 85025; 85610; 85730; 86850; 86900; 86901; 87040; 87086; 93005; 99284; A9270-GY; G0378; J1644; J2310; J7512

== ENCOUNTER 2018-01-03 19:35 | Emergency (ER) | payer MEDICARE, MEDICAID ==
[2018-01-03] MEDS ORDERED: NS 0.9% 1000 ML* 1,000 ML IV ONE (20:05)
[2018-01-03 20:31] LABS: INR 0.94 (0.77-1.02)
[2018-01-03 20:43] LABS: ABS Basophils 0 10^3/ul (0-0.2); ABS Eosinophils 0.2 10^3/ul (0-0.6); ABS Lymphocytes 1.3 10^3/ul (1.0-4.8); ABS Monocytes 0.6 10^3/ul (0-0.8); ABS Neutrophils 5.1 10^3/ul (1.5-7.7); Eosinophil % 3.4 % (0-6); Hematocrit 28 % (35-47); Hemoglobin 9.1 g/dl (12.0-16.0); Lymphocyte % 17.8 % (25-47); Mean Corpuscular HGB Conc 32 g/dl (31-36); Mean Corpuscular Hemoglobin 22 pg (27-31); Mean Corpuscular Volume 70 fL (80-97); Mean Platelet Volume 7.5 um3 (7.4-10.4); Nucleated Red Blood Cells % 0.1; Platelet Count 353 10^3/ul (150-450); Red Blood Count 4.09 10^6/ul (4.0-5.4); Red Cell Distribution Width 19 % (10.5-15); White Blood Count 7.3 10^3/ul (3.5-10.8)
[2018-01-03 20:44] LABS: ABS Nucleated RBC 0 10^3/ul
[2018-01-03 21:00] LABS: EGFR Non-African American 59.7 (>60)
[2018-01-03] MEDS ORDERED: fentaNYL PATCH 50 MCG/HR TRANSDERM ONE (21:20)
[2018-01-03 21:25] VITALS: BP 114/59
[2018-01-03] MEDS ORDERED: fentaNYL PATCH 25 MCG/HR TRANSDERM ONE (21:29)
--- NOTE | 2018-01-04 04:07 | ED ---
Vinay Sandoval Jennifer, scribed for Roberto Aceves MD on 01/03/18 at 2123 . Complex/Multi-Sys Presentation - HPI Summary HPI Summary: The patient is a 72 year old female who presents with hypotension today. The patient was released from the ED yesterday for the same complaint and was given a 25 mcg fentanyl patch. She went back to her usual 50 mcg fentanyl, but her nurse saw her blood pressure decreased to 70/30 today and decided to send her back to the ED. She removed her fentanyl patch when she arrived to the ED. The patient is currently wearing a [employer] collar. She states she feels fine. The patient denies injury, fever, headache, and diarrhea. She is on iron for chronic anemia. - History Of Current Complaint Chief Complaint: EDGeneral Time Seen by Provider: 01/03/18 21:10 Hx Obtained From: Patient Onset/Duration: Sudden Onset, Lasting Days - one day, Still Present Timing: Constant Severity Currently: Mild Severity Initially: Mild Associated Signs And Symptoms: Positive: Other - Hypotension. NEGATIVE: injury, fever, headache, diarrhea - Allergies/Home Medications Allergies/Adverse Reactions: Allergies Allergy/AdvReac Type Severity Reaction Status Date / Time Cephalosporins Allergy Abdominal Verified 12/24/17 19:08 Pain latex Allergy Rash Verified 12/24/17 19:08 PMH/Surg Hx/FS Hx/Imm Hx Endocrine/Hematology History: Reports: Hx Anticoagulant Therapy - heparin for DVT prophylaxis, Hx Thyroid Disease - hypothyroid, Hx Anemia Denies: Hx Diabetes, Hx Systemic Lupus Erythematosus Cardiovascular History: Reports: Hx Angina, Hx Angioplasty, Hx Cardiac Arrest, Hx Congestive Heart Failure, Hx Coronary Artery Disease - stent placed, Hx Hypercholesterolemia, Hx Hypertension, Hx Myocardial Infarction, Other Cardiovascular Problems/Disorders - DR. DUNLAP Denies: Hx Pacemaker/ICD, Hx Valvular Heart Disease Respiratory History: Reports: Hx Chronic Obstructive Pulmonary Disease (COPD), Other Respiratory Problems/Disorders - OCCASIONALLY DIFFICULTY BREATHING- PRN PROVENTIL- STATES HELPS Denies: Hx Asthma, Hx Lung Cancer, Hx Pneumonia, Hx Seasonal Allergies, Hx Sleep Apnea GI History: Reports: Hx Gall Bladder Disease - cholecystectomy, Hx Gastroesophageal Reflux Disease - ON MEDICATION FOR, Hx Gastrointestinal Bleed, Other GI Disorders - colitis History: Reports: Hx Kidney Infection, Hx Kidney Stones Denies: Hx Dialysis, Hx Renal Disease Musculoskeletal History: Reports: Hx Arthritis, Hx Rheumatoid Arthritis, Hx Back Problems, Hx Fibromyalgia, Hx Osteoporosis, Other Musculoskeletal History - herniated disc back T5 and cervical area, spinal cord compression Sensory History: Reports: Hx Cataracts, Hx Contacts or Glasses - Reading glasses Denies: Hx Glaucoma, Hx Hearing Aid Opthamlomology History: Reports: Hx Cataracts, Hx Contacts or Glasses - Reading glasses Denies: Hx Glaucoma Neurological History: Reports: Hx Migraine - RARELY, Hx Seizures Denies: Hx Nerve Disease, Hx Spinal Cord Injury, Hx Transient Ischemic Attacks (TIA) Psychiatric History: Reports: Hx Anxiety - ON MEDICATION FOR, Hx Depression - ON MEDICATION FOR Denies: Hx Panic Disorder - Surgical History Surgery Procedure, Year, and Place: Cardiac stent; right hand surgery; left foot surgery; neck surgery, cholecystectomy, hysterectomy, emergency bowel block (>20 years ago) Hx Anesthesia Reactions: No Infectious Disease History: No Infectious Disease History: Reports: Hx of Known/Suspected MRSA Denies: Traveled Outside the [place] in Last 30 Days - Family History Known Family History: Positive: Hypertension, Other - NE. cancer. TIA Negative: Seizure Disorder - Social History Alcohol Use: None Hx Substance Use: No Substance Use Type: Reports: None Hx Tobacco Use: Yes - not currently Smoking Status (MU): Former Smoker Type: Cigarettes Amount Used/How Often: 1 PPD X 45 YEARS Length of Time of Smoking/Using Tobacco: 48 years Have You Smoked in the Last Year: No Review of Systems Negative: Fever Positive: Other - Hypotension Negative: Diarrhea Neurological: Negative - Injury Negative: Headache All Other Systems Reviewed And Are Negative: Yes Physical Exam - Summary Physical Exam Summary: Appearance: Well appearing, no pain distress Skin: warm, dry, reflects adequate perfusion Head/face: normal Eyes: EOMI, JULIANNE, pupils midrange and reactive ENT: normal, moist mucous membranes Neck: supple, non-tender Respiratory: CTA, breath sounds present Cardiovascular: Heart regular with occasional irregularity. No murmur. pulses symmetrical Abdomen: non-tender, soft Bowel Sounds: present Musculoskeletal: normal, strength/ROM intact. Arthritic changes in hands and feet Neuro: normal, sensory motor intact, A&Ox3 Triage Information Reviewed: Yes Vital Signs On Initial Exam: Initial Vitals Temp Pulse Resp BP Pulse Ox 98.7 F 83 16 70/30 99 01/03/18 19:54 01/03/18 19:54 01/03/18 19:54 01/03/18 19:54 01/03/18 19:54 Vital Signs Reviewed: Yes Diagnostics - Vital Signs Vital Signs Temp Pulse Resp BP Pulse Ox 01/03/18 19:54 98.7 F 83 16 70/30 99 - Laboratory Lab Results: Lab Results 01/03/18 01/03/18 01/03/18 Range/Units 20:17 20:17 20:17 WBC 7.3 (3.5-10.8) 10^3/ul RBC 4.09 (4.0-5.4) 10^6/ul Hgb 9.1 L (12.0-16.0) g/dl Hct 28 L (35-47) % MCV 70 L (80-97) fL MCH 22 L (27-31) pg MCHC 32 (31-36) g/dl RDW 19 H (10.5-15) % Plt Count 353 (150-450) 10^3/ul MPV 7.5 (7.4-10.4) um3 Neut % (Auto) 69.5 (38-83) % Lymph % (Auto) 17.8 L (25-47) % [place] % (Auto) 8.7 H (0-7) % Eos % (Auto) 3.4 (0-6) % Baso % (Auto) 0.6 (0-2) % Absolute Neuts (auto) 5.1 (1.5-7.7) 10^3/ul Absolute Lymphs (auto) 1.3 (1.0-4.8) 10^3/ul Absolute Monos (auto) 0.6 (0-0.8) 10^3/ul Absolute Eos (auto) 0.2 (0-0.6) 10^3/ul Absolute Basos (auto) 0 (0-0.2) 10^3/ul Absolute Nucleated RBC 0 10^3/ul Nucleated RBC % 0.1 INR (Anticoag Therapy) (0.77-1.02) Sodium 134 L (139-145) mmol/L Potassium 4.4 (3.5-5.0) mmol/L Chloride 98 L (101-111) mmol/L Carbon Dioxide 30 (22-32) mmol/L Anion Gap 6 (2-11) mmol/L BUN 20 (6-24) mg/dL Creatinine 0.92 (0.51-0.95) mg/dL Est GFR ( Amer) 76.7 (>60) Est GFR (Non-Af Amer) 59.7 (>60) BUN/Creatinine Ratio 21.7 H (8-20) Glucose 149 H (70-100) mg/dL Lactic Acid 2.3 H* (0.5-2.0) mmol/L Calcium 9.2 (8.6-10.3) mg/dL Total Bilirubin 0.20 (0.2-1.0) mg/dL AST 37 (13-39) U/L ALT 25 (7-52) U/L Alkaline Phosphatase 141 H (34-104) U/L Troponin I 0.02 (<0.04) ng/mL C-Reactive Protein 48.08 H (< 5.00) mg/L Total Protein 6.3 L (6.4-8.9) g/dL Albumin 2.4 L (3.2-5.2) g/dL Globulin 3.9 (2-4) g/dL Albumin/Globulin Ratio 0.6 L (1-3) Lipase 22 (11.0-82.0) U/L 05//18 Range/Units 20:17 WBC (3.5-10.8) 10^3/ul RBC (4.0-5.4) 10^6/ul Hgb (12.0-16.0) g/dl Hct (35-47) % MCV (80-97) fL MCH (27-31) pg MCHC (31-36) g/dl RDW (10.5-15) % Plt Count (150-450) 10^3/ul MPV (7.4-10.4) um3 Neut % (Auto) (38-83) % Lymph % (Auto) (25-47) % [place] % (Auto) (0-7) % Eos % (Auto) (0-6) % Baso % (Auto) (0-2) % Absolute Neuts (auto) (1.5-7.7) 10^3/ul Absolute Lymphs (auto) (1.0-4.8) 10^3/ul Absolute Monos (auto) (0-0.8) 10^3/ul Absolute Eos (auto) (0-0.6) 10^3/ul Absolute Basos (auto) (0-0.2) 10^3/ul Absolute Nucleated RBC 10^3/ul Nucleated RBC % INR (Anticoag Therapy) 0.94 (0.77-1.02) Sodium (139-145) mmol/L Potassium (3.5-5.0) mmol/L Chloride (101-111) mmol/L Carbon Dioxide (22-32) mmol/L Anion Gap (2-11) mmol/L BUN (6-24) mg/dL Creatinine (0.51-0.95) mg/dL Est GFR ( Amer) (>60) Est GFR (Non-Af Amer) (>60) BUN/Creatinine Ratio (8-20) Glucose (70-100) mg/dL Lactic Acid (0.5-2.0) mmol/L Calcium (8.6-10.3) mg/dL Total Bilirubin (0.2-1.0) mg/dL AST (13-39) U/L ALT (7-52) U/L Alkaline Phosphatase (34-104) U/L Troponin I (<0.04) ng/mL C-Reactive Protein (< 5.00) mg/L Total Protein (6.4-8.9) g/dL Albumin (3.2-5.2) g/dL Globulin (2-4) g/dL Albumin/Globulin Ratio (1-3) Lipase (11.0-82.0) U/L Result Diagrams: 01/03/18 20:17 01/03/18 20:17 Lab Statement: Any lab studies that have been ordered have been reviewed, and results considered in the medical decision making process. Re-Evaluation - Re-Evaluation First Eval Re-Evaluation Time: 21:21 Change: Unchanged Comment: I asked the patient if she wanted 12.5 mcg fentanyl patch, but she said no. The patient wants the 25 mcg fentanyl patch. Complex Multi-Symp Course/Dx Course Of Treatment: Patient recently discharged from the hospital where she was admitted for hypotension. She was previously on 50 g fentanyl patches. This was tapered to 25 g on the hospital and her blood pressures improved. Here, the patch was removed and her blood pressure rebounded nicely. With some fluids her systolic was running approximately 114. She was feeling well and asymptomatic. We will discontinue the 50 g patches in favor of the 25's. She will follow closely with her primary care physician - Diagnoses Provider Diagnoses: Hypotension, Intentional fentanyl overdose, Chronic anemia Discharge - Sign-Out/Discharge Documenting (check all that apply): Discharge/Admit/Transfer - Discharge Plan Condition: Improved Disposition: HOME Patient Education Materials: Hypotension (ED) Referrals: Fernando Fuller DO [Primary Care Provider] - Additional Instructions: Call your doctor first thing in the morning to follow-up. Drink plenty of fluids. Return if worse, new symptoms or other concerns. You will also need to have your doctor refill in all patches at a dose of 25 g - Billing Disposition and Condition Condition: IMPROVED Disposition: HOME The documentation as recorded by the Vinay erazo Jennifer accurately reflects the service I personally performed and the decisions made by me, Roberto Aceves MD.
== END 2018-01-03 23:19 | disposition home or self-care (01) ==
LOC: ED 19:35
DX: I95.9 Hypotension, unspecified (principal); T40.4X2A Poisoning by other synthetic narcotics, intentional self-harm, initial encounter; Z79.01 Long term (current) use of anticoagulants; I25.10 Atherosclerotic heart disease of native coronary artery without angina pectoris; Z86.79 Personal history of other diseases of the circulatory system; Z87.891 Personal history of nicotine dependence; Y92.9 Unspecified place or not applicable; D64.9 Anemia, unspecified
CPT/HCPCS: 36415; 80053; 83605; 83690; 84484; 85025; 85610; 86140; 93005; 96360; 99283; A9270-GY

== ENCOUNTER 2018-01-04 09:14 | Inpatient (IN) | payer MEDICARE, MEDICAID ==
[2018-01-04] MEDS ORDERED: Aspirin 81 mg CHEW TAB* 81 MG TAB.CHEW PO ONE (09:23)
[2018-01-04] MEDS ORDERED: NS 0.9% 1000 ML* 1,000 ML IV ONE (09:26)
[2018-01-04 10:26] LABS: ABS Basophils 0 10^3/ul (0-0.2); ABS Eosinophils 0.2 10^3/ul (0-0.6); ABS Lymphocytes 0.8 10^3/ul (1.0-4.8); ABS Monocytes 0.5 10^3/ul (0-0.8); ABS Nucleated RBC 0 10^3/ul; Eosinophil % 2.5 % (0-6); Hematocrit 27 % (35-47); Hemoglobin 8.4 g/dl (12.0-16.0); Lymphocyte % 9.2 % (25-47); Mean Corpuscular HGB Conc 31 g/dl (31-36); Mean Corpuscular Hemoglobin 22 pg (27-31); Mean Corpuscular Volume 70 fL (80-97); Mean Platelet Volume 7.3 um3 (7.4-10.4); Nucleated Red Blood Cells % 0; Platelet Count 330 10^3/ul (150-450); Red Blood Count 3.85 10^6/ul (4.0-5.4); Red Cell Distribution Width 19 % (10.5-15); White Blood Count 8.5 10^3/ul (3.5-10.8)
[2018-01-04 10:39] LABS: EGFR Non-African American 66.3 (>60)
--- NOTE | 2018-01-04 10:59 | RAD ---
Indication: Chest pain and pressure, dizziness, blue lips. Former tobacco use. Comparison: December 30, 2017 Technique: Upright AP 1006 hours Report: Both diffuse mild prominence of the interstitial markings and patchy rarefaction of the mid to upper lung zone interstitial markings. No alveolar consolidation, focal pulmonary lesion, pleural effusion, pneumothorax. Negative for cardiomegaly. Unremarkable central pulmonary vasculature. Tortuous descending thoracic aorta without change. Cervical thoracic spinal fixation rods and pedicle screws. Advanced arthropathy of the shoulders which may be secondary to advanced rheumatoid arthropathy or potentially neurogenic arthropathy. IMPRESSION: Stigmata of obstructive lung disease. No acute pulmonary or cardiac process evident.
[2018-01-04] MEDS: Hydrocortisone INJ* 100 MG VIAL IV ONE ×2 (11:55→12:09)
[2018-01-04] MEDS: NS 0.9% 1000 ML* 1,000 ML IV ONE ×2 (11:57→12:07)
[2018-01-04] MEDS ORDERED: Iohexol 350* (CONTRAST) 500 ML MDV IV ONE (12:23)
[2018-01-04] MEDS ORDERED: Heparin VIAL(*) 5000 UNITS/ML VIAL (FIVE THOUSAND) SUBCUT SCH (14:00)
--- NOTE | 2018-01-04 14:38 | RAD ---
HISTORY: Chest pressure, hypotension COMPARISONS: June 13, 2017 TECHNIQUE: Multiple contiguous axial CT scans of the chest were obtained after the administration of nonionic intravenous contrast, timed to the pulmonary arterial phase of contrast enhancement.. Coronal and sagittal multiplanar reformations are also submitted for review. FINDINGS: NECK AND THYROID: The lower neck and thyroid are unremarkable. CHEST WALL: There is no lower cervical, axillary, or supraclavicular lymphadenopathy by size criteria. HEART AND PERICARDIUM: Coronary and valvular cardiac calcifications are noted. AORTA AND PULMONARY VASCULATURE: There is no pulmonary arterial filling defect to suggest pulmonary embolism. There is no linear filling defect within the aorta to suggest aortic dissection. There is atherosclerosis of the thoracic aorta. MEDIASTINUM: There is no mediastinal lymphadenopathy by size criteria. JESSICA: There is no hilar lymphadenopathy by size criteria. AIRWAY AND ESOPHAGUS: The airway is unremarkable, without endobronchial filling defect. The esophagus is grossly normal. LUNG PARENCHYMA: There is diffuse centrilobular and panacinar emphysematous change with an apical predominance. PLEURA: No pleural abnormalities are noted. UPPER ABDOMEN: The upper abdomen is unremarkable. BONES AND SOFT TISSUES: There is diffuse osteopenia. There are stable compression fractures of the thoracic spine. There has been interval fusion of the upper thoracic spine with percutaneous vertebral augmentation. There are erosive changes of the shoulders bilaterally. OTHER: None. IMPRESSION: 1. NO PULMONARY ARTERIAL FILLING DEFECT TO SUGGEST PULMONARY EMBOLISM. 2. ATHEROSCLEROSIS. 3. EMPHYSEMA.
[2018-01-04] MEDS ORDERED: Heparin DRIP 25,000 UNITS(*) 25,000 UNITS/500 ML BAG IV SCH (15:45)
[2018-01-04] MEDS ORDERED: Heparin VIAL(*) 5000 UNITS/ML VIAL (FIVE THOUSAND) IV PRN (15:54)
[2018-01-04] MEDS: Gabapentin CAP(*) 100 MG PO SCH ×2 (15:55→21:46)
[2018-01-04] MEDS: Atorvastatin* 20 MG TAB PO SCH (17:10)
[2018-01-04] MEDS: fentaNYL Patch Check Q Shift 1 NOTE SCH (18:24)
[2018-01-04] MEDS ORDERED: Famotidine TAB* 20 MG PO SCH (21:00)
[2018-01-04] MEDS: Aspirin TAB* 325 MG PO SCH (21:47)
[2018-01-04] MEDS: Cholecalciferol TAB* 400 UNIT PO SCH (21:47)
--- NOTE | 2018-01-04 21:47 | HP ---
CC: Dr. Fuller * HISTORY AND PHYSICAL: DATE OF ADMISSION: 01/04/18 PROVIDER: Chris Vazquez NP ATTENDING PHYSICIAN: Dr. Coelho * (report dictated by Chris Vazquez NP). PRIMARY CARE PROVIDER: Dr. Fuller. CARDIOLOGY: Dr. Sykes. CHIEF COMPLAINT: Dizziness. HISTORY OF PRESENT ILLNESS: Ms. Parks is a 72-year-old female with a complex past medical history including multiple recent hospitalizations with history of coronary artery disease with NSTEMI in August 2017, and 2 hospitalizations this month for acute on chronic congestive heart failure and another hospitalization for dehydration and hypotension, in which her fentanyl patch was decreased from 50 mcg to 25 mcg, and the patient presented back to the emergency department the day after discharge, which was yesterday, on 01/03/18, for hypotension, in which the patient reports she did not actually change her fentanyl patch, went back on the higher fentanyl patch of 50 mcg. Yesterday, in the emergency department, her patch was taken off and replaced with a 25 mcg patch and the patient's blood pressure stabilized and she went home. This morning, she reports that she awoke and felt fine, was able to get herself out of bed, which is a stand and pivot to a wheelchair, went to the kitchen, took her pills, and approximately 30 minutes later, had acute onset of dizziness and she called the ambulance and came to the emergency department, was found to be hypotensive with systolic blood pressures in the 70s. Currently, in the emergency department, on my evaluation, the patient's systolic blood pressures are now 120/60 after 1 L of normal saline was given. It was also noted that her troponin is 0.5. EKG showing no acute ST changes and similar to previous EKG. The patient denies any shortness of breath or chest pain. She reports that her dizziness has resolved. Otherwise, the patient has no complaints at this time. She denies orthopnea or lower extremity swelling. No recent fevers or chills. Denies cough. PAST MEDICAL HISTORY: The patient also has a past medical history of COPD, peripheral artery disease, stage II decubitus, history of DVT, rheumatoid arthritis, hypothyroidism, chronic diastolic congestive heart failure, anxiety/ depression, hypertension, hyperlipidemia. She also recently had neck stabilization surgery in [place] in October 2017 and is currently in a neck brace. PAST SURGICAL HISTORY: 1. Status post bunionectomy. 2. Status post hysterectomy. 3. Status post bilateral cataract extractions. 4. Status post C-spine fusion. 5. Status post revision of C-spine fusion in October 2017. 6. Status post colectomy. CURRENT MEDICATIONS: 1. Zanaflex 4 mg p.o. t.i.d. 2. Prednisone 5 mg p.o. q.a.m. 3. Oxycodone 5 mg p.o. q.4 to 6 hours p.r.n. 4. Fentanyl patch 25 mcg transderm q.72 hours. 5. Forteo 0.08 mL subcu daily. 6. Potassium chloride 20 mEq p.o. daily. 7. Omeprazole 20 mg p.o. daily. 8. Metoprolol tartrate 25 mg p.o. b.i.d. 9. Magnesium oxide 800 mg p.o. daily. 10. Synthroid 50 mcg p.o. q.a.m. 11. Gabapentin 300 mg p.o. t.i.d. 12. Folic acid 1 mg p.o. q.a.m. 13. Ferrous sulfate 325 mg p.o. daily. 14. Pepcid 20 mg p.o. b.i.d. 15. Colace 100 mg p.o. b.i.d. 16. Vitamin D 400 units p.o. b.i.d. 17. Calcium with vitamin D 25/125 one tab p.o. b.i.d. 18. Bupropion XL 300 mg p.o. daily. 19. Lipitor 20 mg p.o. q.p.m. 20. Aspirin 325 mg p.o. b.i.d. 21. Acetaminophen extra strength 500 mg p.o. q.4 to 6 hours p.r.n. ALLERGIES: LATEX, CEPHALOSPORINS. FAMILY HISTORY: Denies family history of diabetes or coronary artery disease. The patient's mother had a history of laryngeal cancer. SOCIAL HISTORY: The patient is a former smoker, smoking a pack a day for approximately 45 years. She denies alcohol use. Her daughters, Nela Lopez and Patricia Mendoza, are her healthcare proxies in the event she is unable to make decisions for herself. REVIEW OF SYSTEMS: A 14-point review of systems was performed. All the pertinent positives and negatives are mentioned in the history of present illness. Otherwise are negative. PHYSICAL EXAMINATION GENERAL APPEARANCE: A 72-year-old female, appears chronically ill. Alert and oriented x3, in no acute distress. VITAL SIGNS: Temperature 97.7, heart rate 81, respirations 16, O2 sat 100% on room air, blood pressure 121/68. HEENT: Head is normocephalic and atraumatic. Pupils equal and reactive to light. Oropharynx is clear. Moist mucous membranes. NECK: Neck is in a Stoddard J collar. LUNGS: Clear to auscultation bilaterally. Good aeration throughout. No accessory muscle use. CARDIAC: S1 and S2. Regular rate and rhythm. No murmurs, rubs, or gallops appreciated. No lower extremity edema noted. ABDOMEN: Soft, nontender, nondistended. Bowel sounds throughout. EXTREMITIES: 2+ DP pulses bilaterally. The patient has joint deformities in her hands bilaterally. NEURO: Alert and oriented x3. Cranial nerves II through XII are grossly intact. PSYCH: No anxiety or depression noted. Appropriate to situation. DIAGNOSTIC STUDIES/LAB DATA: Sodium 134, potassium 4.7, chloride 100, carbon dioxide 28, anion gap 6, BUN 18, creatinine 0.84, glucose 96, lactic acid 2.1, calcium 8.4. Total bilirubin 0.30, AST 35, ALT 23, alkaline phosphatase 143. Troponin 0.53. Total protein 6.1, albumin 2.2. WBC 8.5, Hgb 8.4, Hct 27, MCV 70, MCH 22, MCHC 31, RDW 19, platelet count 330. Chest x-ray, impression: Stigmata of obstructive lung disease. No acute pulmonary or cardiac process is evident. EKG: Sinus rhythm with a rate of 79, questionable Q waves. However, compared to prior EKG, there are no acute ischemic changes noted. ASSESSMENT AND PLAN: Ms. Parks is a 72-year-old female with a past medical history of chronic congestive diastolic heart failure, history of coronary artery disease with recent non-ST elevation myocardial infarction in 2018, chronic obstructive pulmonary disease, rheumatoid arthritis, chronic pain, anxiety, depression, hypothyroidism, and stage II decubitus ulcer, who presents to the emergency department today with complaint of dizziness. 1. Dizziness. This is resolved at time of my evaluation. I suspect with the patient's story of waking up feeling fine, then taking her medications and feeling dizzy 30 minutes later, I suspect this is all secondary to multiple medications she takes that could cause hypotension. The patient's medications will need to be titrated as it sounds like this is a recurrent event for the patient. Currently, after 1 L of fluid, her blood pressure systolically in the 120s. The ER physician was going to give her Solu-Medrol; however, I have held this at this time as her blood pressures have stabilized. She could have some adrenal insufficiency, but at this time we will just continue to monitor. I have lowered her Zanaflex from 4 mg p.o. t.i.d. to 2 mg p.o. t.i.d. I have also lowered her gabapentin from 300 mg p.o. t.i.d. to 200 mg p.o. t.i.d. Her fentanyl patch was decreased last hospitalization from 50 to 25 and it was reported during the hospitalization that her blood pressures have improved. However, when the patient was discharged home earlier this week, she went back on the 50 mcg patch, which was changed yesterday in her ER visit and now she is currently wearing the 25 mcg patch since yesterday. We will continue this dosage at this time. She also takes oxycodone 5 mg p.o. q.4 to 6 hours p.r.n.; this will be continued and we will continue to watch her blood pressures carefully. She may need endocrinology workup if she continues to have low blood pressures; however, at this time, it is highly suspected that this is all secondary to her medications. 2. Elevated troponin. She presents with a troponin of 0.53. The patient is asymptomatic. Plan to recheck a troponin now to make sure this is correct. If her troponin returns elevated, we will consult Cardiology and she may require heparin drip. She did have a cardiac catheterization in November 2015, which did show moderate disease at that time when she had her non-ST elevation myocardial infarction in August 2017, she was medically managed only. We will continue to trend troponins and monitor on telemetry. Continue aspirin, beta myra, atorvastatin. 3. Anemia. This appears to be chronic. We will continue to monitor and transfuse her if her hemoglobin drops below 8. Continue ferrous sulfate supplementation. 4. Chronic pain. Continue fentanyl patch 25 mcg and as stated above, I have lowered her home medications. 5. Rheumatoid arthritis. Continue home dose prednisone. She does not appear to be in a flare at this time. 6. Hypothyroidism. Continue Synthroid. TSH is pending at the time of dictation. 7. Chronic obstructive pulmonary disease. There are no signs of acute exacerbation at this time. 8. Fluids, electrolytes, and nutrition. Heart healthy diet. 9. Code status. DNR. 10. DVT prophylaxis. Heparin subcu. 11. Disposition. Inpatient to telemetry. TIME SPENT: Approximately 65 minutes was spent on this admission. CHRIS VAZQUEZ NP [id number]/[facility] #: [id number] [facility]
[2018-01-04] MEDS: tiZANidine TAB* 2 MG PO SCH (21:48)
[2018-01-04] MEDS: Docusate CAP* 100 MG PO SCH (21:48)
[2018-01-04] MEDS: oxyCODONE TAB* 5 MG TAB PO PRN (22:21)
--- NOTE | 2018-01-04 22:45 | CONS ---
CC: Dr. Sykes; Dr. Fuller * CONSULTATION REPORT: DATE OF CONSULT: 01/04/18 HISTORY OF PRESENT ILLNESS: I was asked by hospitalist service to see this 72- year- old female patient who is known to me from before with known history of coronary artery disease and intervention and stenting in the past. She presented to the hospital with multiple hospitalizations. Last one was about a week ago because of dizziness and some element of congestive heart failure. Yesterday, she was in the emergency room for dizziness and today she came in with dizziness. She lives by herself. In the emergency room, systolic blood pressure was in the 70, responded very well to IV fluids. Troponin was checked , although she had no symptoms of chest pain and the troponin came in at 0.53, that was 10 o'clock this morning. The patient had no symptoms of chest pain. An EKG and repeated EKG showed no ST elevation. She had normal sinus rhythm, poor R-wave progression and possibly Qs inferiorly. Cardiology consult was further requested because of her history of CAD and troponin. She had a collar on her neck. In July, she had neck surgery for compression of her cervical vertebrae. She had history of adrenal insufficiency. She had severe rheumatoid arthritis. She is in a wheelchair. Her activity is limited. She had no chest pain, no jaw pain, no arm pain, no nausea, no vomiting, no shortness of breath, no hematochezia, no fever, no chills, no skin rash, or tremors. No orthopnea. No swelling in the lower extremities. In the emergency room, she is responding very well to IV fluid with a blood pressure 120 mm Hg systolic. PAST MEDICAL HISTORY: Extensive, included compression fracture, degenerative joint disease, history of myocardial infarction in the past, history of osteoporosis, rheumatoid arthritis, hyperlipidemia, and systemic arterial hypertension. Also coronary artery disease in 2004, inferior wall myocardial infarction, stent x3 to the RCA and COPD, hematuria, hypothyroidism, and history of congestive heart failure. PAST SURGICAL HISTORY: History of neck surgery in July of 2017 and also 2009. History of hysterectomy, vaginal without bilateral salpingo-oophorectomy, history of intestinal obstruction, history of cataract removal, history of right hand surgery. MEDICATIONS: As an outpatient include: 1. Aspirin 81 mg daily. 2. Fentanyl. 4. Folic acid 1 mg daily. 5. Lasix 10 mg daily. 6. Omeprazole 20 mg daily. 7. Oxycodone 5 mg q.4 to 6 hours. 8. Potassium chloride 20 mEq daily. 9. Prednisone 5 mg daily. 10. Synthroid 75 mcg daily. FAMILY HISTORY: No family history of premature coronary artery disease. SOCIAL HISTORY: No history of smoking, drinking, or illicit drug use. She lives alone. She used to smoke. She quit in 2004. REVIEW OF SYSTEMS: Review of all other systems essentially is negative. PHYSICAL EXAM: She is alert, awake, and oriented. She is not in acute distress. She is chest pain free. Vitals: Systolic blood pressure 120, pulse 70, she is in sinus rhythm. Head and Neck exam: Her neck is in a collar secondary to her neck surgery. She is afebrile. Chest is clear to auscultation. No rales, no wheezes, no added sounds. Heart: Normal. Regular S1, S2. No added sounds. No gallops. No rubs. Abdomen: Benign, positive bowel sounds. Extremities: No edema, no cyanosis, no clubbing. Significant rheumatoid arthritis especially in her hands. MANAGER LABOR DELIVERY: No focal deficits appreciated. EKG showed the patient to be in sinus rhythm with old inferior wall WI. DIAGNOSTIC STUDIES/LAB DATA: Showed sodium 134, potassium 4.7, chloride 100, BUN 18, creatinine 0.84. Her LFTs are normal. Troponin 0.53, BNP 535, albumin 2.2, globulin 3.9, TSH 2.36, T4 of 1.39. Her other labs showed cortisol 7.59, white blood cell 8.5, hemoglobin 8.4, hematocrit 27, platelets 330. Her chest x -ray was reported to have obstructive lung disease. No acute pulmonary or cardiac process. IMPRESSION: The patient is a 72-year-old female patient with: 1. Known history of coronary artery disease, extensive in nature. 2. History of inferior wall myocardial infarction, last cath by Dr. Ansari in November 2015, moderate coronary artery disease with not hemodynamically significant right coronary artery stenosis by FFR. 3. History of severe rheumatoid arthritis. 4. Hypothyroidism. 5. History of systemic arterial hypertension. 6. Mild mitral insufficiency. 7. Hyperlipidemia. 8. Long years of tobacco consumption, she quit in 2004. 9. Chronic obstructive pulmonary disease. 10. History of premature ventricular contractions. 11. Normal left ventricular systolic function. 12. The patient is DNR. 13. On echocardiogram done on 12/28/17 showed EF of 50% to 55% and trace to mild mitral insufficiency, trace to mild tricuspid insufficiency, mild pulmonary hypertension. 14. Nuclear Myoview stress test done on 06/14/17 showed low risk. No evidence for infarction or ischemia. 15. Mildly elevated troponin, probably related to her significant low blood pressure in the emergency room and known history of moderate to significant coronary artery disease especially in the right coronary artery. PLAN/RECOMMENDATIONS: I had a lengthy talk with the patient and her family at the bedside today. The patient expressed to me that she does not wish to proceed with any invasive procedures, specific about cardiac catheterization. She already have an echo. She had a relatively recent nuclear stress test and she wants medically treatment, which I found this to be reasonable. The patient never had symptoms of chest pain. She is very comfortable. Her vitals are stable. She is not in overt congestive heart failure. I have discussed that with the hospitalist service and feeling of probably because of her adrenal insufficiency and because of the multiple medications she is on with potential side effects of blood pressure are contributing to her dizziness and low blood pressure. At the present time, I agree with admission and serial troponins, EKG if needed. Monitor her very closely for any symptoms of chest pain as well as monitor her blood pressure. I agree with IV fluid to be used and she is responding. She is anemic which I leave this for further management by the hospitalist. I do not think based on her wishes, any further intervention is needed at the present time. We will follow her closely. Thank you very much for asking us to participate in the care of this patient. TIME SPENT: More that half of at least 60 to 65 plus minute was in the education, counseling mode [id number] explaining all of the above to the patient and her family and decision making. [id number]/[facility] #: [id number] [facility]
[2018-01-05] MEDS: Levothyroxine TAB* 50 MCG TAB PO SCH (05:43)
[2018-01-05] MEDS: oxyCODONE TAB* 5 MG TAB PO PRN ×3 (05:45→16:37)
[2018-01-05 05:54] LABS: ABS Basophils 0 10^3/ul (0-0.2); ABS Eosinophils 0.3 10^3/ul (0-0.6); ABS Lymphocytes 1.4 10^3/ul (1.0-4.8); ABS Monocytes 0.3 10^3/ul (0-0.8); ABS Neutrophils 3.5 10^3/ul (1.5-7.7); ABS Nucleated RBC 0 10^3/ul; Eosinophil % 5.6 % (0-6); Hematocrit 28 % (35-47); Hemoglobin 8.7 g/dl (12.0-16.0); Mean Corpuscular HGB Conc 31 g/dl (31-36); Mean Corpuscular Hemoglobin 22 pg (27-31); Mean Corpuscular Volume 70 fL (80-97); Mean Platelet Volume 7.8 um3 (7.4-10.4); Nucleated Red Blood Cells % 0.1; Platelet Count 305 10^3/ul (150-450); Red Blood Count 3.94 10^6/ul (4.0-5.4); Red Cell Distribution Width 19 % (10.5-15); White Blood Count 5.5 10^3/ul (3.5-10.8)
[2018-01-05 06:08] LABS: EGFR Non-African American 115.3 (>60)
[2018-01-05] MEDS: fentaNYL Patch Check Q Shift 1 NOTE SCH ×2 (06:44→19:31)
[2018-01-05] MEDS: Omeprazole CAP* 20 MG PO SCH (07:59)
[2018-01-05] MEDS ORDERED: predniSONE TAB* 5 MG PO SCH ×2 (09:00→16:52)
[2018-01-05] MEDS ORDERED: Metoprolol Tartrate TAB* 25 MG PO SCH (09:00)
[2018-01-05] MEDS: tiZANidine TAB* 2 MG PO SCH ×3 (09:04→20:20)
[2018-01-05] MEDS: Cholecalciferol TAB* 400 UNIT PO SCH ×2 (09:04→20:21)
[2018-01-05] MEDS: Aspirin TAB* 325 MG PO SCH ×2 (09:04→20:20)
[2018-01-05] MEDS: Ferrous Sulfate TAB* 325 MG PO SCH (09:04)
[2018-01-05] MEDS: Potassium Chlor TAB* 20 MEQ TAB.ER PO SCH (09:04)
[2018-01-05] MEDS: Gabapentin CAP(*) 100 MG PO SCH ×3 (09:04→20:21)
[2018-01-05] MEDS: Magnesium Oxide TAB* 400 MG PO SCH (09:05)
[2018-01-05] MEDS: Famotidine TAB* 20 MG PO SCH (09:05)
[2018-01-05] MEDS: Folic Acid TAB* 1 MG PO SCH (09:05)
[2018-01-05] MEDS: Docusate CAP* 100 MG PO SCH ×2 (09:05→20:19)
[2018-01-05] MEDS: BuPROPion XL* 300 MG TAB.XL PO SCH (09:53)
--- NOTE | 2018-01-05 10:24 | PN ---
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 Patient has widespread pain Chest hurts when coughs breathing stable Medications Active Medications: Aspirin (Aspirin Tab*) 325 mg PO BID [facility] Last Admin: 01/05/18 09:04 Dose: 325 mg Atorvastatin Calcium (Lipitor*) 20 mg PO QPM [facility] Last Admin: 01/04/18 17:10 Dose: 20 mg Bupropion HCl (Bupropion Xl*) 300 mg PO DAILY [facility] Last Admin: 01/05/18 09:53 Dose: 300 mg Cholecalciferol (Vitamin D Tab*) 400 unit PO BID [facility] Last Admin: 01/05/18 09:04 Dose: 400 unit Docusate Sodium (Colace Cap*) 100 mg PO BID [facility] Last Admin: 01/05/18 09:05 Dose: 100 mg Famotidine (Pepcid Tab*) 20 mg PO DAILY [facility] Last Admin: 01/05/18 09:05 Dose: 20 mg Fentanyl (Duragesic Patch 25 Mcg/Hr*) 25 mcg TRANSDERM Q72H [facility] Ferrous Sulfate (Ferrous Sulfate Tab*) 325 mg PO DAILY [facility] Last Admin: 01/05/18 09:04 Dose: 325 mg Folic Acid (Folvite Tab*) 1 mg PO QAM [facility] Last Admin: 01/05/18 09:05 Dose: 1 mg Gabapentin (Neurontin Cap(*)) 200 mg PO TID [facility] Last Admin: 01/05/18 09:04 Dose: 200 mg Heparin Sodium (Porcine) (Heparin Vial(*)) 5,000 units IV .BOLUS PRN PRN Reason: PER PTT RESULT PER HEP.PROTOCO Last Admin: 01/04/18 22:07 Dose: 2,900 units Heparin Sodium/Dextrose (Heparin Drip 25,000 Units(*)) 25,000 units in 500 mls @ 0 mls/hr IV PER RATE [facility]; Per Protocol PRN Reason: Protocol Last Admin: 01/04/18 16:49 Dose: 12 mls/hr Levothyroxine Sodium (Synthroid Tab*) 50 mcg PO 0600 [facility] Last Admin: 01/05/18 05:43 Dose: 50 mcg Magnesium Oxide (Magox 400 Tab*) 800 mg PO DAILY [facility] Last Admin: 01/05/18 09:05 Dose: 800 mg Metoprolol Tartrate (Lopressor Tab*) 25 mg PO BID [facility] Last Admin: 01/05/18 09:05 Dose: 25 mg Omeprazole (Prilosec Cap*) 20 mg PO 0730 [facility] Last Admin: 01/05/18 07:59 Dose: 20 mg Oxycodone HCl (Roxycodone Tab*) 5 mg PO Q4H PRN PRN Reason: PAIN Last Admin: 01/05/18 09:53 Dose: 5 mg Pharmacy Profile Note (Fentanyl Patch Check Q Shift) 1 note N/A 0700,1900 [facility] Last Admin: 01/05/18 06:44 Dose: 1 note Potassium Chloride (Klor Con Er Tab*) 20 meq PO DAILY [facility] Last Admin: 01/05/18 09:04 Dose: 20 meq Prednisone (Deltasone Tab*) 5 mg PO QAM [facility] Last Admin: 01/05/18 09:05 Dose: 5 mg Tizanidine HCl (Zanaflex Tab*) 2 mg PO TID [facility] Last Admin: 01/05/18 09:04 Dose: 2 mg Objective Vital Signs: Temp Pulse Resp BP Pulse Ox 98.0 F 101 16 130/53 99 01/05/18 07:26 01/05/18 07:26 01/05/18 09:53 01/05/18 07:26 01/05/18 07:26 Oxygen Devices in Use Now: Nasal Cannula Appearance: chronically ill appearing Ears/Nose/Mouth/Throat: Clear Oropharnyx Neck: NL Appearance and Movements; NL JVP Respiratory: Symmetrical Chest Expansion and Respiratory Effort Cardiovascular: RRR, - - no significant murmur Abdominal: NL Sounds; No Tenderness; No Distention Extremities: - - diffuse severe RA changes Neurological: Alert and Oriented x 3 Laboratory Results: 01/05/18 05:11 01/05/18 05:12 INR (Anticoag Therapy) 1.00 (0.77-1.02) 01/04/18 17:08 APTT 83.4 seconds (26.0-36.3) H 01/05/18 03:47 Total Bilirubin 0.30 mg/dL (0.2-1.0) 01/04/18 10:07 AST 35 U/L (13-39) 01/04/18 10:07 ALT 23 U/L (7-52) 01/04/18 10:07 Alkaline Phosphatase 143 U/L (34-104) H 01/04/18 10:07 B-Natriuretic Peptide 535 pg/mL (-100) H 01/04/18 10:07 Total Protein 6.1 g/dL (6.4-8.9) L 01/04/18 10:07 Albumin 2.2 g/dL (3.2-5.2) L 01/04/18 10:07 Globulin 3.9 g/dL (2-4) 01/04/18 10:07 Albumin/Globulin Ratio 0.6 (1-3) L 01/04/18 10:07 TSH 2.36 mcIU/mL (0.34-5.60) 01/04/18 10:07 01/04/18 01/04/18 01/04/18 14:25 17:08 19:50 Troponin I 0.75 H* 0.74 H* 0.67 H* Diagnostic Imaging: ct pe study on admission: no PE, emphysema lungs, no effusions EKG Data: ekg: NSR old IWMI, poor R wave progression unchanged on repeat. unchanged grossly from 12/30/2017 Assessment/Plan Would consider IV replacement iron for her chronic iron deficient microcytic anemia as she may benefit from a higher hemoglobin. ferritin relatively normal related to chronic inflammation. On high dose aspirin and prednisone with PPI prophylaxis, prior normal stool I do not think rules out slow UGIB and recheck stool if not this admission. Cortisol level noted, not sure that this excludes iatrogenic adrenal insufficiency, received IV high dose in ER and BP improved If above addressed and remains with these episodes, could consider cautious low dose midodrine in the future
--- NOTE | 2018-01-05 10:58 | ED ---
Yosvany Sandoval Nilda, scribed for Marcel Bender MD on 01/04/18 at 1111 . Dizziness - HPI Summary HPI Summary: This patient is a 72 year old F BIBA with a chief complaint of acute constant dizziness (lightheadedness) since this morning. The patient rates the pain 6/10 in severity. Symptoms aggravated by exertion and alleviated by rest. Patient reports seeing flashing lights, eye pain, mild heaviness on chest which she noticed while in ambulance, and cough. Pt states she has hypotension. - History Of Current Complaint Chief Complaint: EDDizziness Stated Complaint: DIZZINESS,WEAKNESS Time Seen by Provider: 01/04/18 09:21 Hx Obtained From: Patient Onset/Duration: Still Present, Suddenly Timing: Constant Severity Currently: Moderate Character: Lightheaded Aggravating Factor(s): Exertion Alleviating Factor(s): Rest Associated Signs And Symptoms: Positive: Other: - seeing flashing lights, eye pain, mild heaviness on chest which she noticed while in ambulance, and cough. Pt states she has hypotension. - Allergies/Home Medications Allergies/Adverse Reactions: Allergies Allergy/AdvReac Type Severity Reaction Status Date / Time Cephalosporins Allergy Abdominal Verified 12/24/17 19:08 Pain latex Allergy Rash Verified 12/24/17 19:08 PMH/Surg Hx/FS Hx/Imm Hx Endocrine/Hematology History: Reports: Hx Anticoagulant Therapy - heparin for DVT prophylaxis, Hx Thyroid Disease - hypothyroid, Hx Anemia Denies: Hx Diabetes, Hx Systemic Lupus Erythematosus Cardiovascular History: Reports: Hx Angina, Hx Angioplasty, Hx Cardiac Arrest, Hx Congestive Heart Failure, Hx Coronary Artery Disease - stent placed, Hx Hypercholesterolemia, Hx Hypotension, Hx Myocardial Infarction, Other Cardiovascular Problems/Disorders - DR. DUNLAP Denies: Hx Pacemaker/ICD, Hx Valvular Heart Disease Respiratory History: Reports: Hx Chronic Obstructive Pulmonary Disease (COPD), Other Respiratory Problems/Disorders - OCCASIONALLY DIFFICULTY BREATHING- PRN PROVENTIL- STATES HELPS Denies: Hx Asthma, Hx Lung Cancer, Hx Pneumonia, Hx Seasonal Allergies, Hx Sleep Apnea GI History: Reports: Hx Gall Bladder Disease - cholecystectomy, Hx Gastroesophageal Reflux Disease - ON MEDICATION FOR, Hx Gastrointestinal Bleed, Other GI Disorders - colitis History: Reports: Hx Kidney Infection, Hx Kidney Stones Denies: Hx Dialysis, Hx Renal Disease Musculoskeletal History: Reports: Hx Arthritis, Hx Rheumatoid Arthritis, Hx Back Problems, Hx Fibromyalgia, Hx Osteoporosis, Other Musculoskeletal History - herniated disc back T5 and cervical area, spinal cord compression Sensory History: Reports: Hx Cataracts, Hx Contacts or Glasses - Reading glasses Denies: Hx Glaucoma, Hx Hearing Aid Opthamlomology History: Reports: Hx Cataracts, Hx Contacts or Glasses - Reading glasses Denies: Hx Glaucoma Neurological History: Reports: Hx Migraine - RARELY, Hx Seizures Denies: Hx Nerve Disease, Hx Spinal Cord Injury, Hx Transient Ischemic Attacks (TIA) Psychiatric History: Reports: Hx Anxiety - ON MEDICATION FOR, Hx Depression - ON MEDICATION FOR Denies: Hx Panic Disorder - Surgical History Surgery Procedure, Year, and Place: Cardiac stent; right hand surgery; left foot surgery; neck surgery, cholecystectomy, hysterectomy, emergency bowel block (>20 years ago) Hx Anesthesia Reactions: No Infectious Disease History: No Infectious Disease History: Reports: Hx of Known/Suspected MRSA Denies: Traveled Outside the [place] in Last 30 Days - Family History Known Family History: Positive: Hypertension, Other - [place]. cancer. TIA Negative: Seizure Disorder - Social History Alcohol Use: None Hx Substance Use: No Substance Use Type: Reports: None Hx Tobacco Use: Yes - not currently Smoking Status (MU): Former Smoker Type: Cigarettes Amount Used/How Often: 1 PPD X 45 YEARS Length of Time of Smoking/Using Tobacco: 48 years Have You Smoked in the Last Year: No Review of Systems Negative: Fever, Chills Positive: Other - seeing flashing lights, eye pain. Negative: Erythema Negative: Sore Throat Positive: Chest Pain - mild heaviness on chest, Other - hypotension Positive: Cough. Negative: Shortness Of Breath Negative: Abdominal Pain, Vomiting, Nausea Negative: dysuria, hematuria Negative: Myalgia, Edema Negative: Rash Neurological: Other - dizziness All Other Systems Reviewed And Are Negative: Yes Physical Exam - Summary Physical Exam Summary: Constitutional: Well-developed, Well-nourished, Alert. (-) Distressed Skin: Warm, Dry, Pallor HENT: Normocephalic; Atraumatic Eyes: Conjunctiva normal Neck: Pt wearing [place] J Collar Cardio: Rhythm regular, rate normal, Heart sounds normal; Intact distal pulses; The pedal pulses are 2+ and symmetric. Radial pulses are 2+ and symmetric. (-) Murmur Pulmonary/Chest wall: Effort normal. (-) Respiratory distress, (-) Wheezes, (-) Rales Abd: Soft, (-) Tenderness, (-) Distension, (-) Guarding, (-) Rebound Musculoskeletal: (-) Edema Lymph: (-) Cervical adenopathy Neuro: Alert, Oriented x3 Psych: Mood and affect Normal Triage Information Reviewed: Yes Vital Signs On Initial Exam: Initial Vitals Resp 14 01/04/18 09:32 Vital Signs Reviewed: Yes Diagnostics - Vital Signs Vital Signs Temp Pulse Resp BP Pulse Ox 01/04/18 10:00 97.7 F 78 17 74/40 100 01/04/18 09:33 80 12 95 01/04/18 09:32 14 - Laboratory Lab Results: Lab Results 01/04/18 01/04/18 Range/Units 10:07 10:07 WBC 8.5 (3.5-10.8) 10^3/ul RBC 3.85 L (4.0-5.4) 10^6/ul Hgb 8.4 L (12.0-16.0) g/dl Hct 27 L (35-47) % MCV 70 L (80-97) fL MCH 22 L (27-31) pg MCHC 31 (31-36) g/dl RDW 19 H (10.5-15) % Plt Count 330 (150-450) 10^3/ul MPV 7.3 L (7.4-10.4) um3 Neut % (Auto) 81.8 (38-83) % Lymph % (Auto) 9.2 L (25-47) % [place] % (Auto) 6.0 (0-7) % Eos % (Auto) 2.5 (0-6) % Baso % (Auto) 0.5 (0-2) % Absolute Neuts (auto) 7.0 (1.5-7.7) 10^3/ul Absolute Lymphs (auto) 0.8 L (1.0-4.8) 10^3/ul Absolute Monos (auto) 0.5 (0-0.8) 10^3/ul Absolute Eos (auto) 0.2 (0-0.6) 10^3/ul Absolute Basos (auto) 0 (0-0.2) 10^3/ul Absolute Nucleated RBC 0 10^3/ul Nucleated RBC % 0 Sodium 134 L (139-145) mmol/L Potassium 4.7 (3.5-5.0) mmol/L Chloride 100 L (101-111) mmol/L Carbon Dioxide 28 (22-32) mmol/L Anion Gap 6 (2-11) mmol/L BUN 18 (6-24) mg/dL Creatinine 0.84 (0.51-0.95) mg/dL Est GFR ( Amer) 85.2 (>60) Est GFR (Non-Af Amer) 66.3 (>60) BUN/Creatinine Ratio 21.4 H (8-20) Glucose 96 (70-100) mg/dL Calcium 8.4 L (8.6-10.3) mg/dL Total Bilirubin 0.30 (0.2-1.0) mg/dL AST 35 (13-39) U/L ALT 23 (7-52) U/L Alkaline Phosphatase 143 H (34-104) U/L Troponin I Pending Total Protein 6.1 L (6.4-8.9) g/dL Albumin 2.2 L (3.2-5.2) g/dL Globulin 3.9 (2-4) g/dL Albumin/Globulin Ratio 0.6 L (1-3) Result Diagrams: 01/04/18 10:07 01/04/18 10:07 Lab Statement: Any lab studies that have been ordered have been reviewed, and results considered in the medical decision making process. - Radiology CXR Radiology Interpretation Completed By: Radiologist - CXR reveals stigmata of obstructive lung disease. No acute pulmonary or cardiac process evident. Dr. Bender has reviewed this radiology report. - EKG 0933 Cardiac Rate: NL - 79 bpm EKG Rhythm: Sinus Rhythm EKG Interpretation: no STEMI EKG Comparison: No Significant Change Re-Evaluation - Re-Evaluation First Eval Re-Evaluation Time: 11:30 Comment: Pt states she no longer has CP. Dizzy Course/Dx - Course Course Of Treatment: [12:15] Dr. Dunlap (automobile body worker) agrees to consult on pt this afternoon. Assessment/Plan: CP resolved in the ED with management of the BP. Stress dose IV steroids given. Do not suspect sepsis. Possibly autonomic disregulation or adverse affect. - Diagnoses Provider Diagnoses: Hypotension, Elevated troponin - Provider Notifications Discussed Care Of Patient With: Mar Koch - Hospitalist Time Discussed With Above Provider: 11:18 Instructed by Provider To: Admit As Inpatient - Critical Care Time Critical Care Time: 30-74 min - 45 mins Discharge - Sign-Out/Discharge Documenting (check all that apply): Discharge/Admit/Transfer - Discharge Plan Condition: Stable Disposition: ADMITTED TO [facility] documentation as recorded by the Yosvany erazo Nilda accurately reflects the service I personally performed and the decisions made by , Marcel Bender MD.
--- NOTE | 2018-01-05 12:56 | PN ---
Subjective Date of Service: 01/05/18 Interval History: Ms. Parks reports that she "hurts all over" and notes that she feels a lot of phlegm in her throat and is sore from trying unsuccessfully to clear it. She denies chest pain or SOB. She denies nausea or abdominal pain. She confirms that she was dizzy after taking her morning meds prior to admission. Objective Active Medications: Aspirin (Aspirin Tab*) 325 mg PO BID [facility] Atorvastatin Calcium (Lipitor*) 20 mg PO QPM [facility] Bupropion HCl (Bupropion Xl*) 300 mg PO DAILY [facility] Cholecalciferol (Vitamin D Tab*) 400 unit PO BID [facility] Docusate Sodium (Colace Cap*) 100 mg PO BID [facility] Famotidine (Pepcid Tab*) 20 mg PO DAILY [facility] Fentanyl (Duragesic Patch 25 Mcg/Hr*) 25 mcg TRANSDERM Q72H [facility] Ferrous Sulfate (Ferrous Sulfate Tab*) 325 mg PO DAILY [facility] Folic Acid (Folvite Tab*) 1 mg PO QAM [facility] Gabapentin (Neurontin Cap(*)) 200 mg PO TID [facility] Heparin Sodium (Porcine) (Heparin Vial(*)) 5,000 units IV .BOLUS PRN Heparin Sodium/Dextrose (Heparin Drip 25,000 Units(*)) 25,000 units in 500 mls @ 0 mls/hr IV PER RATE [facility]; Per Protocol Iron Sucrose 200 mg/ Sodium (Chloride) 110 mls @ 110 mls/hr IVPB DAILY [facility] Levothyroxine Sodium (Synthroid Tab*) 50 mcg PO 0600 [facility] Magnesium Oxide (Magox 400 Tab*) 800 mg PO DAILY [facility] Metoprolol Tartrate (Lopressor Tab*) 25 mg PO BID [facility] Omeprazole (Prilosec Cap*) 20 mg PO 0730 [facility] Oxycodone HCl (Roxycodone Tab*) 5 mg PO Q4H PRN Pharmacy Profile Note (Fentanyl Patch Check Q Shift) 1 note N/A 0700,1900 [facility] Potassium Chloride (Klor Con Er Tab*) 20 meq PO DAILY [facility] Prednisone (Deltasone Tab*) 5 mg PO QAM [facility] Tizanidine HCl (Zanaflex Tab*) 2 mg PO TID [facility] Vital Signs: Temp Pulse Resp BP Pulse Ox 98.6 F 77 14 91/40 99 01/05/18 11:33 01/05/18 11:33 01/05/18 14:20 01/05/18 14:19 01/05/18 11:33 Oxygen Devices in Use Now: Nasal Cannula Appearance: Elderly female lying in bed in NAD Eyes: No Scleral Icterus Ears/Nose/Mouth/Throat: NL Teeth, Lips, Gums Neck: Trachea Midline Respiratory: Symmetrical Chest Expansion and Respiratory Effort, Clear to Auscultation Cardiovascular: NL Sounds; No Murmurs; No JVD, No Edema Abdominal: NL Sounds; No Tenderness; No Distention Lymphatic: No Cervical Adenopathy Extremities: No Edema Skin: No Rash or Ulcers Neurological: Alert and Oriented x 3, NL Muscle Strength and Tone Nutrition: Taking PO's Result Diagrams: 01/05/18 05:11 01/05/18 05:12 Additional Lab and Data: Vital Signs: Temp Pulse Resp BP Pulse Ox 98.6 F 77 14 91/40 99 01/05/18 11:33 01/05/18 11:33 01/05/18 14:20 01/05/18 14:19 01/05/18 11:33 Assess/Plan/Problems-Billing Assessment: Ms. Parks is a 72 yo female with a PMH of NSTEMI with GI bleed August 2017 which were both medically managed, with repeat admission December 2017 with acute on chronic CHF with chest pain, and again just a couple of days ago with complaint of dizziness who returns with dizziness. - Patient Problems (1) Dizziness Comment: - Now asymptomatic though has had a low BP today. - Could be medication related as she did experience dizziness after taking morning meds. Also noted to be hypotensive this afternoon even though meds held or decreased. - Likely component of adrenal insufficiency but chronic prednisone therapy prevents interpretation of cortisol level. As asymptomatic, plan to increase prednisone dose. (2) NSTEMI (non-ST elevated myocardial infarction) Current Visit: No Status: Acute Code(s): I21.4 - NON-ST ELEVATION (NSTEMI) MYOCARDIAL INFARCTION SNOMED Code(s): 582514132 Comment: - Troponin is trending down. Likely stress induced. - Cardiology following. Stop heparin gtt. Continue medical management. (3) Acute diastolic CHF (congestive heart failure) Comment: - No evidence of acute exacerbation. - Not on diuretics outpatient. (4) Anemia Comment: - Chronic, stable. - Check stool occult blood. - Plan for iron IV supplementation based on recommendations from cardiology, to promote cardiac perfusion. (5) Chronic pain Comment: - Continue Fentanyl patch, gabapentin, and zanaflex at lower dose, gabapentin, zanaflex and oxycodone prn. (6) Anxiety and depression Comment: - Continue Bupropion (7) CAD (coronary artery disease) Comment: - Continue ASA, continue lipitor. (8) COPD (chronic obstructive pulmonary disease) Comment: - Not in exacerbation (9) Cervical spinal stenosis Comment: - She is s/p replacement of failed C-spine hardware in 11/2017 at [place] - Keep C-spine collar in place as recommended - Small dehiscence at distal end of midline incision on posterior neck, healing. - Continue daily dressing changes - consult wound care. - Patient has been followed by wound clinic for this issue and also her open wounds from chronic decubitus. (10) Decubitus skin ulcer Comment: - Has been followed by wound clinic - will continue daily packing and dressing changes - Appears to be a chronic issues, has not worsen lately (11) HTN (hypertension) Comment: - Continue Metoprolol with hold parameters (12) GERD (gastroesophageal reflux disease) Comment: - Continue Famotidine and Omeprazole (13) Hypothyroidism Comment: - Continue Levothyroxine 75 mcg daily (home dose). (14) PVD (peripheral vascular disease) Comment: - Cont ASA, statin (15) Rheumatoid arthritis Current Visit: No Status: Chronic Code(s): M06.9 - RHEUMATOID ARTHRITIS, UNSPECIFIED SNOMED Code(s): 00171888 Comment: - On low dose prednisone 5mg daily, plaquenil was stopped for wound healing - Pain control (16) DVT prophylaxis Comment: - HSQ (17) DNR (do not resuscitate) Comment: Status and Disposition: Inpatient. Anticipate discharge to home when medically stable.
[2018-01-05] MEDS ORDERED: NS 0.9% 500 ML* 500 ML IV ONE (13:58)
[2018-01-05] MEDS: Iron Sucrose* 200 MG in NS 0.9% 100 ML* 100 ML IVPB SCH (14:20)
[2018-01-05] MEDS ORDERED: Cosyntropin* 0.25 MG VIAL IV ONE (15:00)
[2018-01-05] MEDS ORDERED: predniSONE TAB* 5 MG PO ONE (16:52)
[2018-01-05] MEDS: Atorvastatin* 20 MG TAB PO SCH (17:32)
[2018-01-05] MEDS: Metoprolol Tartrate TAB* 25 MG PO SCH (20:19)
[2018-01-05] MEDS ORDERED: Hydrocortisone TAB* 10 MG PO SCH (21:00)
[2018-01-06] MEDS: Levothyroxine TAB* 50 MCG TAB PO SCH (05:48)
[2018-01-06 05:53] LABS: ABS Basophils 0 10^3/ul (0-0.2); ABS Eosinophils 0 10^3/ul (0-0.6); ABS Monocytes 0.3 10^3/ul (0-0.8); ABS Neutrophils 3.7 10^3/ul (1.5-7.7); ABS Nucleated RBC 0 10^3/ul; Eosinophil % 0.2 % (0-6); Hematocrit 31 % (35-47); Hemoglobin 9.6 g/dl (12.0-16.0); Lymphocyte % 19.4 % (25-47); Mean Corpuscular HGB Conc 31 g/dl (31-36); Mean Corpuscular Hemoglobin 22 pg (27-31); Mean Corpuscular Volume 70 fL (80-97); Mean Platelet Volume 7.6 um3 (7.4-10.4); Nucleated Red Blood Cells % 0; Platelet Count 333 10^3/ul (150-450); Red Blood Count 4.38 10^6/ul (4.0-5.4); Red Cell Distribution Width 19 % (10.5-15)
[2018-01-06] MEDS ORDERED: NS 0.9% 100 ML* 100 ML ONE (07:32)
[2018-01-06] MEDS: Potassium Chlor TAB* 20 MEQ TAB.ER PO SCH (07:48)
[2018-01-06] MEDS: Gabapentin CAP(*) 100 MG PO SCH ×3 (07:49→21:50)
[2018-01-06] MEDS: Aspirin TAB* 325 MG PO SCH ×2 (07:49→21:48)
[2018-01-06] MEDS: Dexamethasone TAB* 0.75 MG PO SCH (07:52)
[2018-01-06] MEDS: Magnesium Oxide TAB* 400 MG PO SCH (07:53)
[2018-01-06] MEDS: Omeprazole CAP* 20 MG PO SCH (07:53)
[2018-01-06] MEDS: BuPROPion XL* 300 MG TAB.XL PO SCH (07:54)
[2018-01-06] MEDS: Cholecalciferol TAB* 400 UNIT PO SCH ×2 (07:54→21:50)
[2018-01-06] MEDS: Famotidine TAB* 20 MG PO SCH (07:54)
[2018-01-06] MEDS: tiZANidine TAB* 2 MG PO SCH ×3 (07:54→21:49)
[2018-01-06] MEDS: Docusate CAP* 100 MG PO SCH ×2 (07:55→21:51)
[2018-01-06] MEDS: Ferrous Sulfate TAB* 325 MG PO SCH (07:55)
[2018-01-06] MEDS: Metoprolol Tartrate TAB* 25 MG PO SCH ×2 (07:55→21:50)
[2018-01-06] MEDS: Folic Acid TAB* 1 MG PO SCH (07:55)
[2018-01-06] MEDS: fentaNYL Patch Check Q Shift 1 NOTE SCH ×2 (08:38→19:14)
[2018-01-06] MEDS ORDERED: predniSONE TAB* 5 MG PO SCH (09:00)
[2018-01-06] MEDS: oxyCODONE TAB* 5 MG TAB PO PRN ×2 (09:16→18:16)
[2018-01-06] MEDS: Iron Sucrose* 200 MG in NS 0.9% 100 ML* 100 ML IVPB SCH (09:16)
--- NOTE | 2018-01-06 11:37 | PN ---
Subjective Date of Service: 01/06/18 Interval History: Ms. Parks reports feeling better today. Her pain is well controlled. She denies dizziness with her limited mobility. She denies chest pain, SOB, nausea , or abdominal pain. Objective Active Medications: Aspirin (Aspirin Tab*) 325 mg PO BID [facility] Atorvastatin Calcium (Lipitor*) 20 mg PO QPM [facility] Bupropion HCl (Bupropion Xl*) 300 mg PO DAILY [facility] Cholecalciferol (Vitamin D Tab*) 400 unit PO BID [facility] Cosyntropin (Cosyntropin*) 0.25 mg IV ONCE ONE Dexamethasone (Decadron Tab*) 0.75 mg PO DAILY [facility] Docusate Sodium (Colace Cap*) 100 mg PO BID [facility] Famotidine (Pepcid Tab*) 20 mg PO DAILY [facility] Fentanyl (Duragesic Patch 25 Mcg/Hr*) 25 mcg TRANSDERM Q72H [facility] Ferrous Sulfate (Ferrous Sulfate Tab*) 325 mg PO DAILY [facility] Folic Acid (Folvite Tab*) 1 mg PO QAM [facility] Gabapentin (Neurontin Cap(*)) 200 mg PO TID [facility] Iron Sucrose 200 mg/ Sodium (Chloride) 110 mls @ 110 mls/hr IVPB DAILY [facility] Levothyroxine Sodium (Synthroid Tab*) 50 mcg PO 0600 [facility] Magnesium Oxide (Magox 400 Tab*) 800 mg PO DAILY [facility] Metoprolol Tartrate (Lopressor Tab*) 25 mg PO BID [facility] Omeprazole (Prilosec Cap*) 20 mg PO 0730 [facility] Oxycodone HCl (Roxycodone Tab*) 5 mg PO Q4H PRN Pharmacy Profile Note (Fentanyl Patch Check Q Shift) 1 note N/A 0700,1900 [facility] Potassium Chloride (Klor Con Er Tab*) 20 meq PO DAILY [facility] Tizanidine HCl (Zanaflex Tab*) 2 mg PO TID [facility] Vital Signs: Temp Pulse Resp BP Pulse Ox 98.1 F 73 18 129/56 100 01/06/18 07:25 01/06/18 07:25 01/06/18 09:16 01/06/18 07:25 01/06/18 07:25 Oxygen Devices in Use Now: Nasal Cannula Appearance: Female lying in bed in NAD Eyes: No Scleral Icterus Ears/Nose/Mouth/Throat: Mucous Membranes Moist Neck: Trachea Midline Respiratory: Symmetrical Chest Expansion and Respiratory Effort, Clear to Auscultation Cardiovascular: NL Sounds; No Murmurs; No JVD, No Edema Abdominal: NL Sounds; No Tenderness; No Distention Lymphatic: No Cervical Adenopathy Extremities: No Edema Skin: - - Small tunneling ulceration to base of cervical spine incision without erythema or drainage, two decubitus ulcers to buttocks without erythema or draininage Neurological: Alert and Oriented x 3, NL Muscle Strength and Tone Result Diagrams: 01/06/18 05:13 01/05/18 05:12 Additional Lab and Data: . Assess/Plan/Problems-Billing Assessment: Ms. Parks is a 72 yo female with a PMH of NSTEMI with GI bleed August 2017 which were both medically managed, with repeat admission December 2017 with acute on chronic CHF with chest pain, and again just a couple of days ago with complaint of dizziness who returns with dizziness. - Patient Problems (1) Dizziness Comment: - BP > 100 since yesterday. - Could be medication related as she did experience dizziness after taking morning meds. Also noted to be hypotensive this afternoon even though meds held or decreased. - Likely component of adrenal insufficiency, plan to switch to dexamethasone and check ACTCH stimulation test this afternoon. (2) NSTEMI (non-ST elevated myocardial infarction) Current Visit: No Status: Acute Code(s): I21.4 - NON-ST ELEVATION (NSTEMI) MYOCARDIAL INFARCTION SNOMED Code(s): 273990547 Comment: - Likely stress induced. - Cardiology following. Stop heparin gtt. Continue medical management. (3) Acute diastolic CHF (congestive heart failure) Comment: - No evidence of acute exacerbation. - Not on diuretics outpatient. (4) Anemia Comment: - Chronic, stable. - Check stool occult blood. - Plan for iron IV supplementation based on recommendations from cardiology, to promote cardiac perfusion. (5) Chronic pain Comment: - Continue Fentanyl patch, gabapentin, and zanaflex at lower dose with oxycodone prn. (6) Anxiety and depression Comment: - Continue Bupropion (7) CAD (coronary artery disease) Comment: - Continue ASA, continue lipitor. (8) COPD (chronic obstructive pulmonary disease) Comment: - Not in exacerbation (9) Cervical spinal stenosis Comment: - She is s/p replacement of failed C-spine hardware in 11/2017 at [place] - Keep C-spine collar in place as recommended - Small dehiscence at distal end of midline incision on posterior neck, healing. - Continue daily dressing changes - wound care consult appreciated. (10) Decubitus skin ulcer Comment: - Has been followed by wound clinic - will continue daily packing and dressing changes - Chronic issues, has not worsen lately (11) HTN (hypertension) Comment: - Continue Metoprolol with hold parameters (12) GERD (gastroesophageal reflux disease) Comment: - Continue Famotidine and Omeprazole (13) Hypothyroidism Comment: - Continue Levothyroxine 75 mcg daily (home dose). (14) PVD (peripheral vascular disease) Comment: - Cont ASA, statin (15) Rheumatoid arthritis Current Visit: No Status: Chronic Code(s): M06.9 - RHEUMATOID ARTHRITIS, UNSPECIFIED SNOMED Code(s): 55301567 Comment: - On low dose prednisone 5mg daily, plaquenil was stopped for wound healing - Pain control (16) DVT prophylaxis Comment: - HSQ (17) DNR (do not resuscitate) Comment: Status and Disposition: Inpatient. Anticipate discharge to home when medically stable.
[2018-01-06] MEDS ORDERED: fentaNYL PATCH 25 MCG/HR TRANSDERM SCH (13:00)
[2018-01-06] MEDS ORDERED: Cosyntropin* 0.25 MG VIAL IV ONE (17:30)
[2018-01-06] MEDS: Atorvastatin* 20 MG TAB PO SCH (17:39)
[2018-01-07] MEDS: Levothyroxine TAB* 50 MCG TAB PO SCH (05:18)
[2018-01-07] MEDS: oxyCODONE TAB* 5 MG TAB PO PRN ×2 (05:20→12:51)
[2018-01-07] MEDS ORDERED: NS 0.9% 100 ML* 100 ML ONE (08:08)
[2018-01-07] MEDS: Docusate CAP* 100 MG PO SCH (08:17)
[2018-01-07] MEDS: Magnesium Oxide TAB* 400 MG PO SCH (08:17)
[2018-01-07] MEDS: Folic Acid TAB* 1 MG PO SCH (08:17)
[2018-01-07] MEDS: Metoprolol Tartrate TAB* 25 MG PO SCH (08:17)
[2018-01-07] MEDS: Potassium Chlor TAB* 20 MEQ TAB.ER PO SCH (08:17)
[2018-01-07] MEDS: Omeprazole CAP* 20 MG PO SCH (08:17)
[2018-01-07] MEDS: BuPROPion XL* 300 MG TAB.XL PO SCH (08:18)
[2018-01-07] MEDS: tiZANidine TAB* 2 MG PO SCH ×2 (08:18→12:51)
[2018-01-07] MEDS: Dexamethasone TAB* 0.75 MG PO SCH (08:18)
[2018-01-07] MEDS: Gabapentin CAP(*) 100 MG PO SCH ×2 (08:18→12:51)
[2018-01-07] MEDS: Famotidine TAB* 20 MG PO SCH (08:18)
[2018-01-07] MEDS: Ferrous Sulfate TAB* 325 MG PO SCH (08:18)
[2018-01-07] MEDS: Cholecalciferol TAB* 400 UNIT PO SCH (08:18)
[2018-01-07] MEDS: Aspirin TAB* 325 MG PO SCH (08:18)
[2018-01-07] MEDS: Iron Sucrose* 200 MG in NS 0.9% 100 ML* 100 ML IVPB SCH (08:19)
[2018-01-07] MEDS: fentaNYL Patch Check Q Shift 1 NOTE SCH (08:21)
--- NOTE | 2018-01-07 13:44 | PN ---
Subjective Date of Service: 01/07/18 Interval History: Ms. Parks reports that she is feeling well today and she denies any acute complaint. She is concerned about going home today due to lack of support from her daughter but her daughter, Mackenzie, assures us that she will be with her through the long holiday weekend. In addition, [facility] will see her tomorrow and her aides return on Wednesday. Objective Active Medications: Aspirin (Aspirin Tab*) 325 mg PO BID ORIN Atorvastatin Calcium (Lipitor*) 20 mg PO QPM ORIN Bupropion HCl (Bupropion Xl*) 300 mg PO DAILY ORIN Cholecalciferol (Vitamin D Tab*) 400 unit PO BID ORIN Dexamethasone (Decadron Tab*) 0.75 mg PO DAILY ORIN Docusate Sodium (Colace Cap*) 100 mg PO BID ORIN Famotidine (Pepcid Tab*) 20 mg PO DAILY ORIN Fentanyl (Duragesic Patch 25 Mcg/Hr*) 25 mcg TRANSDERM Q72H ORIN Ferrous Sulfate (Ferrous Sulfate Tab*) 325 mg PO DAILY ORIN Folic Acid (Folvite Tab*) 1 mg PO QAM ORIN Gabapentin (Neurontin Cap(*)) 200 mg PO TID ORIN Iron Sucrose 200 mg/ Sodium (Chloride) 110 mls @ 110 mls/hr IVPB DAILY ORIN Levothyroxine Sodium (Synthroid Tab*) 50 mcg PO 0600 ORIN Magnesium Oxide (Magox 400 Tab*) 800 mg PO DAILY ORIN Metoprolol Tartrate (Lopressor Tab*) 25 mg PO BID ORIN Omeprazole (Prilosec Cap*) 20 mg PO 0730 ORIN Oxycodone HCl (Roxycodone Tab*) 5 mg PO Q4H PRN Pharmacy Profile Note (Fentanyl Patch Check Q Shift) 1 note N/A 0700,1900 ORIN Potassium Chloride (Klor Con Er Tab*) 20 meq PO DAILY ORIN Tizanidine HCl (Zanaflex Tab*) 2 mg PO TID [facility] Vital Signs: Temp Pulse Resp BP Pulse Ox 98.0 F 72 18 110/51 100 01/07/18 11:31 01/07/18 11:31 01/07/18 12:51 01/07/18 11:31 01/07/18 11:31 Oxygen Devices in Use Now: Nasal Cannula Appearance: Elderly female lying in bed in NAD Eyes: No Scleral Icterus Ears/Nose/Mouth/Throat: Mucous Membranes Moist Neck: NL Appearance and Movements; NL JVP, Trachea Midline Respiratory: Symmetrical Chest Expansion and Respiratory Effort, Clear to Auscultation Cardiovascular: NL Sounds; No Murmurs; No JVD, No Edema Abdominal: NL Sounds; No Tenderness; No Distention Lymphatic: No Cervical Adenopathy Extremities: No Edema Skin: No Rash or Ulcers Neurological: Alert and Oriented x 3, NL Muscle Strength and Tone Nutrition: Taking PO's Result Diagrams: 01/06/18 05:13 01/05/18 05:12 Additional Lab and Data: . Assess/Plan/Problems-Billing Assessment: Ms. Parks is a 72 yo female with a PMH of NSTEMI with GI bleed August 2017 which were both medically managed, with repeat admission December 2017 with acute on chronic CHF with chest pain, and again just a couple of days ago with complaint of dizziness who returns with dizziness. - Patient Problems (1) Dizziness Comment: - One episode of SBP 80s yesterday but patient asymptomatic. - Suspect medication related as she did experience dizziness after taking morning meds. Also noted to be hypotensive this afternoon even though meds held or decreased. - Suspected component of adrenal insufficiency, but ACTH stim test negative ( reviewed with Dr. Pimentel). (2) NSTEMI (non-ST elevated myocardial infarction) Current Visit: No Status: Acute Code(s): I21.4 - NON-ST ELEVATION (NSTEMI) MYOCARDIAL INFARCTION SNOMED Code(s): 907974045 Comment: - Likely stress induced. - Cardiology following. Stop heparin gtt. Continue medical management. (3) Acute diastolic CHF (congestive heart failure) Comment: - No evidence of acute exacerbation. - Not on diuretics outpatient. (4) Anemia Comment: - Chronic, stable. - Check stool occult blood. - IV supplementation x 3 inpatient, start ferrous sulfate. (5) Chronic pain Comment: - Continue Fentanyl patch, gabapentin, and zanaflex at lower dose with oxycodone prn. (6) Anxiety and depression Comment: - Continue Bupropion (7) CAD (coronary artery disease) Comment: - Continue ASA, continue lipitor. (8) COPD (chronic obstructive pulmonary disease) Comment: - Not in exacerbation (9) Cervical spinal stenosis Comment: - She is s/p replacement of failed C-spine hardware in 11/2017 at [place] - Keep C-spine collar in place as recommended - Small dehiscence at distal end of midline incision on posterior neck, healing. - Continue daily dressing changes - wound care consult appreciated. (10) Decubitus skin ulcer Comment: - Has been followed by wound clinic - will continue daily packing and dressing changes - Chronic issues, has not worsen lately (11) HTN (hypertension) Comment: - Continue Metoprolol with hold parameters (12) GERD (gastroesophageal reflux disease) Comment: - Continue Famotidine and Omeprazole (13) Hypothyroidism Comment: - Continue Levothyroxine 75 mcg daily (home dose). (14) PVD (peripheral vascular disease) Comment: - Cont ASA, statin (15) Rheumatoid arthritis Current Visit: No Status: Chronic Code(s): M06.9 - RHEUMATOID ARTHRITIS, UNSPECIFIED SNOMED Code(s): 31594214 Comment: - On low dose prednisone 5mg daily, plaquenil was stopped for wound healing - Pain control (16) DVT prophylaxis Comment: - HSQ (17) DNR (do not resuscitate) Comment: Status and Disposition: Inpatient. Discharge to home.
[2018-01-07 15:22] VITALS: BP 100/43
--- NOTE | 2018-01-08 11:57 | DS ---
CC: Dr. Fuller; Dr. Sykes * [facility] MEDICINE DISCHARGE SUMMARY: DATE OF ADMISSION: 01/04/18 DATE OF DISCHARGE: 01/07/18 PRIMARY CARE PHYSICIAN: Dr. Fuller. [employer]: Dr. Sykes. ATTENDING PHYSICIAN: Dr. Mar Coelho * dictation provided by Funmilayo Garcia NP) . PRIMARY DIAGNOSES: 1. Dizziness, suspect secondary to multiple medications. 2. Hypotension, asymptomatic. SECONDARY DIAGNOSES: 1. History of COPD. 2. Peripheral arterial disease. 3. Stage 2 decubitus ulcer on buttocks. 4. History of DVT. 5. Rheumatoid arthritis, on chronic prednisone therapy. 6. Hypothyroidism. 7. Chronic diastolic congestive heart failure. 8. Anxiety. 9. Depression. 10. Hypertension. 11. Hyperlipidemia. 12. History of recent neck stabilization surgery in October 2017, currently with a neck brace. 13. History of non-ST elevation MT (demand ischemia) August 2017. 14. History of 2 hospitalization for [id number] congestive heart failure , December 2017. HOME MEDICATION LIST: As follows: 1. Prednisone 5 mg p.o. q.a.m. 2. Oxycodone 5 mg p.o. q.4 hours p.r.n. 3. Forteo 0.08 mL subcutaneously daily. 4. Potassium chloride 20 mEq p.o. daily. 5. Omeprazole 20 mg p.o. daily. 6. Metoprolol tartrate 25 mg p.o. b.i.d. 7. Magnesium oxide 800 mg p.o. daily. 8. Levothyroxine 50 mcg p.o. q.a.m. 9. Folic acid 1 mg p.o. q.a.m. 10. Ferrous sulfate 325 mg p.o. b.i.d. (new increased dose). 11. Famotidine 20 mg p.o. b.i.d. 12. Colace 100 mg p.o. b.i.d. 13. Cholecalciferol 1 tab p.o. b.i.d. 14. Calcium with vitamin D 250/125 one tab p.o. b.i.d. 15. Bupropion XL 300 mg p.o. daily. 16. Atorvastatin 20 mg p.o. q.p.m. 17. Aspirin 325 mg p.o. b.i.d. 18. Tylenol p.r.n. 19. Tizanidine 2 mg p.o. t.i.d. (new lower dose). 20. Fentanyl patch 25 mcg q.72 hours (new lower dose). 21. Gabapentin 200 mg p.o. t.i.d. (new lower dose). HOSPITAL COURSE: Ms. Parks is a 72-year-old female with a past medical history as outline above, who presented to the hospital on 01/04/18 with concern for dizziness. Please see the dictated H and P from Laila Mcfarlane NP , for complete details. In brief, the patient has had 2 hospitalization in December of this year for suspected [id number] diastolic congestive heart failure associated with dizziness and chest pain. She again returned with dizziness. In the emergency room, she was hypotensive with systolic blood pressure in the 70s. She was given a liter of fluids and her blood pressure was 120/60. She had an elevated troponin to 0.53. Her lactic acid was 2.1. She had no leukocytosis. No fever. She is anemic with a hemoglobin of 8.4 which is relatively consistent with previous. She had no report of dark, black, or tarry stool. Ms. Parks was admitted to the hospital and placed on telemetry monitoring. She has had no evidence of arrhythmia. Her troponin peaked at 0.75 and then began to fall. For the elevated troponin and history of non-ST elevation MT with peak troponin of 42.63 back on 08/24/17, she was seen in consultation by Dr. Sykes and I refer you to his note for complete details. In brief, based on the patient's history and family, plan was to proceed with medical management. He notes the patient never had symptoms of chest pain, but dizziness only and he agreed that her dizziness was most likely related to her multiple medication regimen including fentanyl patch, gabapentin, and tizanidine. Ms. Parks's fentanyl patch was decreased from 50 mcg to 25 mcg. We also decreased her tizanidine and gabapentin as noted above. With this, she has had no further episodes of dizziness; however, she has had intermittent seemingly random low blood pressures. I note that on arrival, her blood pressure was 74/ 40. She was then noted again on 01/05/18 at 11:30 to have a blood pressure of 82 /40 and then on 01/06/18 at 1543, she had a blood pressure of 81/35. Otherwise , her blood pressure has been normal. There seems to be no clear reason as to why she has some intermittent hypotension. She was completely asymptomatic with those episodes. I did consider that perhaps she has some adrenal insufficiency based on her chronic prednisone use. However, we did check a cosyntropin stimulation test and the results were not consistent with adrenal insufficiency. I did review these results with Dr. Pimentel who agreed that our results were not consistent with adrenal insufficiency.. It may be that Ms. Parks would benefit at some point from addition of midodrine, but it is not clear at this time that her symptoms of dizziness are actually related to her intermittent low blood pressures and given her recent non-ST elevation MT, the use of this medication would generally be less desirable, but may be necessary ultimately. Ms. Parks is doing quite well today. She denies any complaints. She has very limited mobility due to her rheumatoid arthritis, but is at baseline and is medically stable for discharge to home. We reviewed this with her daughters who will be meeting her there. DISPOSITION: Home. DIET: Low fat, low salt. ACTIVITY: As tolerated. FOLLOWUP PLANS: Please follow up with [facility] on Wednesday, an appointment has been made. TIME SPENT: Approximately 60 minutes was spent on the discharge of this patient , more than half that time spent with the patient at the bedside reviewing the events leading to during this hospitalization, performing the physical examination, and reviewing the plan of care. FUNMILAYO GARCIA, NEIL [id number]/[facility] #: [id number] PHUC
== END 2018-01-07 16:18 | disposition hospice, home (50) | DRG 149 ==
LOC: ED 09:14 → ICU 11:23 → MEDTELE 15:07
PROVIDERS: ADMIT Internal Medicine; ATTEND Internal Medicine
DX: R42 Dizziness and giddiness (principal); I50.33 Acute on chronic diastolic (congestive) heart failure; E03.9 Hypothyroidism, unspecified; I25.10 Atherosclerotic heart disease of native coronary artery without angina pectoris; E78.00 Pure hypercholesterolemia, unspecified; M06.9 Rheumatoid arthritis, unspecified; K21.9 Gastro-esophageal reflux disease without esophagitis; M79.7 Fibromyalgia; M81.0 Age-related osteoporosis without current pathological fracture; G43.909 Migraine, unspecified, not intractable, without status migrainosus; F41.9 Anxiety disorder, unspecified; F32.9 Major depressive disorder, single episode, unspecified; J44.9 Chronic obstructive pulmonary disease, unspecified; I73.9 Peripheral vascular disease, unspecified; I11.0 Hypertensive heart disease with heart failure; G89.29 Other chronic pain; I08.1 Rheumatic disorders of both mitral and tricuspid valves; I27.20 Pulmonary hypertension, unspecified; D50.9 Iron deficiency anemia, unspecified; L89.90 Pressure ulcer of unspecified site, unspecified stage; M48.02 Spinal stenosis, cervical region; I95.9 Hypotension, unspecified; T40.4X5A Adverse effect of other synthetic narcotics, initial encounter; T42.6X5A Adverse effect of other antiepileptic and sedative-hypnotic drugs, initial encounter; T42.8X5A Adverse effect of antiparkinsonism drugs and other central muscle-tone depressants, initial encounter; Z66 Do not resuscitate; Z90.49 Acquired absence of other specified parts of digestive tract; Z95.5 Presence of coronary angioplasty implant and graft; I25.2 Old myocardial infarction; Z88.1 Allergy status to other antibiotic agents; Z98.42 Cataract extraction status, left eye; Z87.442 Personal history of urinary calculi; Z98.41 Cataract extraction status, right eye; Z86.718 Personal history of other venous thrombosis and embolism; Z98.1 Arthrodesis status; Z80.1 Family history of malignant neoplasm of trachea, bronchus and lung; Z86.74 Personal history of sudden cardiac arrest; Z82.49 Family history of ischemic heart disease and other diseases of the circulatory system; Z86.14 Personal history of Methicillin resistant Staphylococcus aureus infection; Z91.040 Latex allergy status; Z82.3 Family history of stroke; Z87.891 Personal history of nicotine dependence; Z90.710 Acquired absence of both cervix and uterus; Z90.722 Acquired absence of ovaries, bilateral; Z79.52 Long term (current) use of systemic steroids; Z79.82 Long term (current) use of aspirin; Y92.009 Unspecified place in unspecified non-institutional (private) residence as the place of occurrence of the external cause
CPT/HCPCS: 36415; 71045; 71275; 80048; 80053; 82533; 83605; 83690; 83880; 84439; 84443; 84484; 85025; 85610; 85730; 86140; 93005; 96360; 99283; 99284; A9270-GY; J0834; J1644; J1720; J1756; J7512; Q9967

== ENCOUNTER 2018-01-10 08:10 | Inpatient (IN) | payer MEDICARE, MEDICAID ==
[2018-01-10] MEDS ORDERED: NS 0.9% 1000 ML* 1,000 ML IV ONE (08:27)
[2018-01-10 08:48] LABS: INR 1.03 (0.77-1.02)
[2018-01-10 08:53] LABS: ABS Basophils 0.1 10^3/ul (0-0.2); ABS Eosinophils 0.2 10^3/ul (0-0.6); ABS Lymphocytes 0.7 10^3/ul (1.0-4.8); ABS Monocytes 0.7 10^3/ul (0-0.8); ABS Neutrophils 8.5 10^3/ul (1.5-7.7); ABS Nucleated RBC 0 10^3/ul; Eosinophil % 2.3 % (0-6); Hematocrit 27 % (35-47); Hemoglobin 8.6 g/dl (12.0-16.0); Lymphocyte % 6.7 % (25-47); Mean Corpuscular HGB Conc 32 g/dl (31-36); Mean Corpuscular Hemoglobin 22 pg (27-31); Mean Corpuscular Volume 71 fL (80-97); Mean Platelet Volume 7.4 um3 (7.4-10.4); Nucleated Red Blood Cells % 0; Platelet Count 360 10^3/ul (150-450); Red Blood Count 3.83 10^6/ul (4.0-5.4); Red Cell Distribution Width 19 % (10.5-15); White Blood Count 10.1 10^3/ul (3.5-10.8)
[2018-01-10 08:56] LABS: EGFR Non-African American 79.2 (>60)
--- NOTE | 2018-01-10 09:10 | RAD ---
HISTORY: Low blood pressure COMPARISONS: January 04, 2018 VIEWS: 1: frontal portable view of the chest at 8:40 AM FINDINGS: LINES AND TUBES: None. CARDIOMEDIASTINAL SILHOUETTE: The cardiomediastinal silhouette is normal for portable technique. PLEURA: The costophrenic angles are sharp. No pleural abnormalities are noted. LUNG PARENCHYMA: There is hyperinflation. There are calcified granulomas of the right upper lung ABDOMEN: The upper abdomen is clear. There is no subphrenic gas. BONES AND SOFT TISSUES: There is diffuse osteopenia. There are advanced degenerative changes of the shoulders. The patient is status post spinal fusion. IMPRESSION: HYPERINFLATION. NO ACTIVE CARDIOPULMONARY DISEASE.
--- NOTE | 2018-01-10 10:36 | ED ---
Holli Sandoval Rebecca, scribed for Skip Brooks on 01/10/18 at 0833 . Complex/Multi-Sys Presentation - HPI Summary HPI Summary: Pt is a 72 y/o F BIBA who presents to ED due to low BP. Daughter reports that her symptoms began earlier today. Per nurse's note, her BP was 68/49 on the left arm and 67/41 on the right arm upon arrival to the ED. Denies any pain including CP and abd pain. She was admitted on 01/04 for a similar reason as her presentation today. Takes metoprolol and the pt's daughter states that her BP tends to fluctuate with periods of hypotension and others of hypertension. Uses 2L O2 at home. - History Of Current Complaint Chief Complaint: EDGeneral Time Seen by Provider: 01/10/18 08:14 Hx Obtained From: Family/Animal Chiropractor - Daughter Onset/Duration: Still Present Severity Currently: None Location: Negative Aggravating Factor(s): Nothing Alleviating Factor(s): Nothing Associated Signs And Symptoms: Positive: Other - Low BP Related History: Recent Hospitalization - Allergies/Home Medications Allergies/Adverse Reactions: Allergies Allergy/AdvReac Type Severity Reaction Status Date / Time Cephalosporins Allergy Abdominal Verified 12/24/17 19:08 Pain latex Allergy Rash Verified 12/24/17 19:08 PMH/Surg Hx/FS Hx/Imm Hx Endocrine/Hematology History: Reports: Hx Anticoagulant Therapy - heparin for DVT prophylaxis, Hx Thyroid Disease - hypothyroid, Hx Anemia Denies: Hx Diabetes, Hx Systemic Lupus Erythematosus Cardiovascular History: Reports: Hx Angina, Hx Angioplasty, Hx Cardiac Arrest, Hx Congestive Heart Failure, Hx Coronary Artery Disease - stent placed, Hx Hypercholesterolemia, Hx Hypotension, Hx Hypertension, Hx Myocardial Infarction , Other Cardiovascular Problems/Disorders - DR. DUNLAP Denies: Hx Pacemaker/ICD, Hx Valvular Heart Disease Respiratory History: Reports: Hx Chronic Obstructive Pulmonary Disease (COPD), Other Respiratory Problems/Disorders - OCCASIONALLY DIFFICULTY BREATHING- PRN PROVENTIL- STATES HELPS Denies: Hx Asthma, Hx Lung Cancer, Hx Pneumonia, Hx Seasonal Allergies, Hx Sleep Apnea GI History: Reports: Hx Gall Bladder Disease - cholecystectomy, Hx Gastroesophageal Reflux Disease - ON MEDICATION FOR, Hx Gastrointestinal Bleed, Other GI Disorders - colitis History: Reports: Hx Kidney Infection, Hx Kidney Stones Denies: Hx Dialysis, Hx Renal Disease Musculoskeletal History: Reports: Hx Arthritis, Hx Rheumatoid Arthritis, Hx Back Problems, Hx Fibromyalgia, Hx Osteoporosis, Other Musculoskeletal History - herniated disc back T5 and cervical area, spinal cord compression Sensory History: Reports: Hx Cataracts, Hx Contacts or Glasses - Reading glasses Denies: Hx Glaucoma, Hx Hearing Aid Opthamlomology History: Reports: Hx Cataracts, Hx Contacts or Glasses - Reading glasses Denies: Hx Glaucoma Neurological History: Reports: Hx Migraine - RARELY, Hx Seizures Denies: Hx Nerve Disease, Hx Spinal Cord Injury, Hx Transient Ischemic Attacks (TIA) Psychiatric History: Reports: Hx Anxiety - ON MEDICATION FOR, Hx Depression - ON MEDICATION FOR Denies: Hx Panic Disorder - Surgical History Surgery Procedure, Year, and Place: Cardiac stent; right hand surgery; left foot surgery; neck surgery, cholecystectomy, hysterectomy, emergency bowel block (>20 years ago) Hx Anesthesia Reactions: No Infectious Disease History: No Infectious Disease History: Reports: Hx of Known/Suspected MRSA Denies: Traveled Outside the [place] in Last 30 Days - Family History Known Family History: Positive: Hypertension, Other - CT. cancer. TIA Negative: Seizure Disorder - Social History Alcohol Use: None Hx Substance Use: No Substance Use Type: Reports: None Hx Tobacco Use: Yes - not currently Smoking Status (MU): Former Smoker Type: Cigarettes Amount Used/How Often: 1 PPD X 45 YEARS Length of Time of Smoking/Using Tobacco: 48 years Have You Smoked in the Last Year: No Review of Systems Positive: Other - Low BP. Negative: Fever Negative: Chest Pain Negative: Abdominal Pain All Other Systems Reviewed And Are Negative: Yes Physical Exam - Summary Physical Exam Summary: Appearance: Well appearing, no pain distress Skin: warm, dry, reflects adequate perfusion Head/face: normal Eyes: EOMI, JULIANNE ENT: normal Neck: neck collar in place Respiratory: CTA, breath sounds present Cardiovascular: RRR, pulses symmetrical Abdomen: non-tender, soft Bowel: present Musculoskeletal: strength/ROM intact, bilateral pedal edema Neuro: normal, sensory motor intact, A&Ox3 Triage Information Reviewed: Yes Vital Signs On Initial Exam: Initial Vitals Temp Pulse Resp BP Pulse Ox 98 F 80 16 67/41 99 01/10/18 08:12 01/10/18 08:12 01/10/18 08:12 01/10/18 08:12 01/10/18 08:12 Vital Signs Reviewed: Yes Diagnostics - Vital Signs Vital Signs Temp Pulse Resp BP Pulse Ox 01/10/18 08:12 98 F 80 16 67/41 99 - Laboratory Lab Results: Lab Results 01/10/18 01/10/18 01/10/18 Range/Units 08:29 08:29 08:29 WBC 10.1 (3.5-10.8) 10^3/ul RBC 3.83 L (4.0-5.4) 10^6/ul Hgb 8.6 L (12.0-16.0) g/dl Hct 27 L (35-47) % MCV 71 L (80-97) fL MCH 22 L (27-31) pg MCHC 32 (31-36) g/dl RDW 19 H (10.5-15) % Plt Count 360 (150-450) 10^3/ul MPV 7.4 (7.4-10.4) um3 Neut % (Auto) 83.8 H (38-83) % Lymph % (Auto) 6.7 L (25-47) % Hill % (Auto) 6.7 (0-7) % Eos % (Auto) 2.3 (0-6) % Baso % (Auto) 0.5 (0-2) % Absolute Neuts (auto) 8.5 H (1.5-7.7) 10^3/ul Absolute Lymphs (auto) 0.7 L (1.0-4.8) 10^3/ul Absolute Monos (auto) 0.7 (0-0.8) 10^3/ul Absolute Eos (auto) 0.2 (0-0.6) 10^3/ul Absolute Basos (auto) 0.1 (0-0.2) 10^3/ul Absolute Nucleated RBC 0 10^3/ul Nucleated RBC % 0 INR (Anticoag Therapy) (0.77-1.02) APTT (26.0-36.3) seconds Sodium 136 L (139-145) mmol/L Potassium 4.5 (3.5-5.0) mmol/L Chloride 103 (101-111) mmol/L Carbon Dioxide 29 (22-32) mmol/L Anion Gap 4 (2-11) mmol/L BUN 16 (6-24) mg/dL Creatinine 0.72 (0.51-0.95) mg/dL Est GFR ( Amer) 101.8 (>60) Est GFR (Non-Af Amer) 79.2 (>60) BUN/Creatinine Ratio 22.2 H (8-20) Glucose 106 H (70-100) mg/dL Lactic Acid 2.4 H* (0.5-2.0) mmol/L Calcium 8.8 (8.6-10.3) mg/dL Total Bilirubin 0.40 (0.2-1.0) mg/dL AST 38 (13-39) U/L ALT 25 (7-52) U/L Alkaline Phosphatase 170 H (34-104) U/L Troponin I 0.04 H* (<0.04) ng/mL B-Natriuretic Peptide ( - 100) pg/mL Total Protein 6.1 L (6.4-8.9) g/dL Albumin 2.4 L (3.2-5.2) g/dL Globulin 3.7 (2-4) g/dL Albumin/Globulin Ratio 0.6 L (1-3) 01/10/18 01/10/18 Range/Units 08:29 08:29 WBC (3.5-10.8) 10^3/ul RBC (4.0-5.4) 10^6/ul Hgb (12.0-16.0) g/dl Hct (35-47) % MCV (80-97) fL MCH (27-31) pg MCHC (31-36) g/dl RDW (10.5-15) % Plt Count (150-450) 10^3/ul MPV (7.4-10.4) um3 Neut % (Auto) (38-83) % Lymph % (Auto) (25-47) % Hill % (Auto) (0-7) % Eos % (Auto) (0-6) % Baso % (Auto) (0-2) % Absolute Neuts (auto) (1.5-7.7) 10^3/ul Absolute Lymphs (auto) (1.0-4.8) 10^3/ul Absolute Monos (auto) (0-0.8) 10^3/ul Absolute Eos (auto) (0-0.6) 10^3/ul Absolute Basos (auto) (0-0.2) 10^3/ul Absolute Nucleated RBC 10^3/ul Nucleated RBC % INR (Anticoag Therapy) 1.03 H (0.77-1.02) APTT 31.0 (26.0-36.3) seconds Sodium (139-145) mmol/L Potassium (3.5-5.0) mmol/L Chloride (101-111) mmol/L Carbon Dioxide (22-32) mmol/L Anion Gap (2-11) mmol/L BUN (6-24) mg/dL Creatinine (0.51-0.95) mg/dL Est GFR ( Amer) (>60) Est GFR (Non-Af Amer) (>60) BUN/Creatinine Ratio (8-20) Glucose (70-100) mg/dL Lactic Acid (0.5-2.0) mmol/L Calcium (8.6-10.3) mg/dL Total Bilirubin (0.2-1.0) mg/dL AST (13-39) U/L ALT (7-52) U/L Alkaline Phosphatase (34-104) U/L Troponin I (<0.04) ng/mL B-Natriuretic Peptide 529 H ( - 100) pg/mL Total Protein (6.4-8.9) g/dL Albumin (3.2-5.2) g/dL Globulin (2-4) g/dL Albumin/Globulin Ratio (1-3) Result Diagrams: 01/10/18 08:29 01/10/18 08:29 Lab Statement: Any lab studies that have been ordered have been reviewed, and results considered in the medical decision making process. - Radiology CXR Xray Interpretation: No Acute Changes - HYPERINFLATION. NO ACTIVE CARDIOPULMONARY DISEASE. ED physician reviewed this radiology report. Radiology Interpretation Completed By: Radiologist - EKG 0811 Cardiac Rate: NL - 78 bpm EKG Rhythm: Sinus Rhythm EKG Interpretation: QS waves in the inferior leads Complex Multi-Symp Course/Dx Assessment/Plan: Pt is a 72 y/o F BIBA who presents to ED due to low BP since earlier today. Per nurse's note, her BP was 68/49 on the left arm and 67/41 on the right arm upon arrival to the ED. Denies any pain including CP and abd pain. She was admitted on 01/04 for a similar reason as her presentation today. Takes metoprolol and the pt's daughter states that her BP tends to fluctuate with periods of hypotension and others of hypertension. Uses 2L O2 at home. Blood work was done with results including a troponin of 0.04 and lactic acid of 2.4. CXR reveals no acute findings. EKG is sinus rhythm with QS waves in the inferior leads. In the ED course, pt received fluids. Discussed care of pt with Dr. Araujo who accepts pt for admission. Pt will be admitted with Dx of dizziness , weakness, and hypotension. Allergies noted. - Diagnoses Differential Diagnoses/HQI/PQRI: Urinary Tract Infection, Other - sepsis/ hypotension Provider Diagnoses: Weakness, Dizziness, Hypotension - Physician Notifications Discussed Care Of Patient With: Lu Araujo Time Discussed With Above Provider: 09:55 Instructed by Provider To: Other - Accepts pt for admission. Discharge - Sign-Out/Discharge Documenting (check all that apply): Discharge/Admit/Transfer - Admit - Discharge Plan Condition: Stable Disposition: ADMITTED TO [facility] Referrals: Fernando Fuller DO [Primary Care Provider] - - Billing Disposition and Condition Condition: STABLE Disposition: [facility] [place] The documentation as recorded by the Holli erazo Rebecca accurately reflects the service I personally performed and the decisions made by , Skip Brooks.
[2018-01-10 10:59] LABS: Urine Appearance Clear; Urine Blood Negative (Negative); Urine Color Yellow; Urine Ketones Negative (Negative); Urine Protein Negative (Negative); Urine Specific Gravity 1.008 (1.010-1.030); Urine Urobilinogen Negative (Negative)
[2018-01-10] MEDS ORDERED: predniSONE TAB* 5 MG PO ONE (11:30)
[2018-01-10] MEDS: fentaNYL PATCH 12 MCG/HR TRANSDERM SCH (13:14)
[2018-01-10] MEDS: Scopolamine 1.5 mg* PATCH TRANSDERM SCH (13:22)
[2018-01-10] MEDS: Gabapentin CAP(*) 100 MG PO SCH ×2 (13:22→20:18)
[2018-01-10] MEDS: Meclizine TAB* 12.5 MG PO SCH ×2 (13:24→21:43)
[2018-01-10] MEDS ORDERED: Heparin VIAL(*) 5000 UNITS/ML VIAL (FIVE THOUSAND) SUBCUT SCH (14:00)
--- NOTE | 2018-01-10 14:12 | HP ---
CC: Dr. Fuller.* [facility] MEDICINE HISTORY AND PHYSICAL: DATE OF ADMISSION: 01/10/18 PRIMARY CARE PHYSICIAN: Dr. Fuller. ATTENDING PHYSICIAN: Lu Araujo MD * (dictation provided by Funmilayo Garcia NP). CHIEF COMPLAINT: Dizziness. HISTORY OF PRESENT ILLNESS: Ms. Parks is a 72-year-old female well known to the hospital medicine team with multiple recent admissions in 2018 who presents again today with concerns for dizziness. Ms. Parks has a history of non-ST elevation MD in August 2017 at which time she also had gastrointestinal bleeding. She has returned for admissions with concern for zuswv-ut-bwoecwm diastolic congestive heart failure, hypotension and episodes of dizziness. She states that since returning home she was initially feeling well, although she was only discharged on 01/07/18. Overnight last night she had difficulty sleeping due to needing to frequently urinate. At 5:30 a.m. she got up and took her morning medications including metoprolol, levothyroxine, gabapentin, tizanidine, and oxycodone. She states that she could not fall back to sleep and therefore was sat up on the chair for a while. It seems that she dozed off for a while and when she lifted her head after she awoke, she had dizziness. She describes the room as spinning. She felt dizzy while calling EMS, but reports that her symptoms had improved somewhat by the time EMS arrived. The only other thing noted today is that the patient has new lower extremity edema, which is mild. The patient endorses high salt intake with lunch yesterday of a ham and cheese sandwich and dinner of a can of chicken and stars soup. She denies any shortness of breath. She denies chest pain. She denies any dark, black, or tarry stools. She denies any dysuria, although she did notes some frequency last night. During the last hospitalization, the patient had also presented for dizziness experienced shortly after taking morning medications. During that hospitalization, the patient had intermittent episodes of hypotension that seemed to not be connected with medication administration and happened randomly during the day. These episodes were not associated with dizziness, although the patient was not getting out of that at that point. Our plan at that point was to check a cosyntropin stimulation test, which was performed. These results were reviewed by hospital medicine team as well as Dr. Pimentel from endocrinology and it was felt that the patient did not demonstrate adrenal insufficiency and therefore her prednisone dose was left at 5 mg daily. It was suspected that perhaps her dizziness was related to medication usage and her medications were again decreased including her fentanyl patch, her gabapentin, and her tizanidine. PAST MEDICAL HISTORY: 1. Non-ST elevation MD in August 2017. 2. Acute GI bleed, unknown source in August 2017. 3. Chronic diastolic congestive heart failure. 4. Chronic pain related to rheumatoid arthritis. 5. Rheumatoid arthritis. 6. COPD. 7. Peripheral artery disease. 8. Stage 2 decubitus ulcer, chronic. 9. History of DVT. 10. Hypothyroidism. 11. Anxiety and depression. 12. Hypertension. 13. Hyperlipidemia. 14. History of neck stabilization surgery at [place] in October 2017. Currently in [facility]. MEDICATIONS OUTPATIENT: 1. Acetaminophen 500 mg p.o. q. 4 to 6 hours p.r.n. 2. Aspirin 325 mg p.o. b.i.d. 3. Fentanyl patch 25 mcg q. 72 hours. 4. Gabapentin 300 mg p.o. t.i.d. 5. Metoprolol tartrate 25 mg p.o. b.i.d. 6. Prednisone 5 mg p.o. q.a.m. 7. Forteo 0.08 mL subcutaneously daily. 8. Tizanidine 2 mg p.o. t.i.d. 9. Atorvastatin 20 mg p.o. q. p.m. 10. Bupropion XL 300 mg p.o. daily. 11. Calcium with vitamin D one tab p.o. b.i.d. 12. Cholecalciferol 400 units p.o. b.i.d. 13. Docusate 100 mg p.o. b.i.d. 14. Famotidine 20 mg p.o. b.i.d. 15. Ferrous sulfate 325 mg p.o. b.i.d. 16. Folic acid 1 mg p.o. q. a.m. 17. Levothyroxine 50 mcg p.o. q. a.m. 18. Magnesium oxide 800 mg p.o. daily. 19. Omeprazole 20 mg p.o. daily. 20. Oxycodone 5 mg p.o. q. 4 to 6 hours p.r.n. 21. Potassium chloride 20 mEq p.o. daily. ALLERGIES: CEPHALOSPORIN and LATEX. FAMILY HISTORY: The patient's mother had a history of laryngeal cancer. SOCIAL HISTORY: The patient is a former smoker, smoked pack a day for about 45 years. She denies alcohol use. Her daughters Nela Lopez and Patricia Mendoza are her healthcare proxies in the event she is unable to make decisions for herself. REVIEW OF SYSTEMS: A 14-point review of systems was completed with Ms. Parks and all others than mentioned above were negative. PHYSICAL EXAMINATION GENERAL: Ms. Parks is lying in the bed. She is in no acute distress with her daughter at the bedside. VITAL SIGNS: Temperature 98, heart rate 83, respiratory rate 15, O2 saturation 92% on room air, blood pressure 134/73. I will note that the patient's blood pressure was 67/41 on arrival and she has been given a liter of IV fluids. LUNGS: Clear to auscultation bilaterally with no accessory muscle use and good aeration. HEART: S1 and S2. No murmur, rub, or gallop and regular. ABDOMEN: Soft and nontender. Bowel sounds positive x4. EXTREMITIES: No cyanosis. Positive for 1+ pitting edema at level of the ankle. NEUROLOGIC: She is alert. She is oriented x3. She moves all extremities equally. There is no facial asymmetry or focal weakness. Extraocular movements are intact. SKIN: The patient has a history of chronic decubitus ulcers. Two ulcers noted to the bottom and one healing, tunneling dehiscence of a cervical surgery incision. LABORATORY DATA: WBC 10.0, hemoglobin 8.6, hematocrit 27, platelet count 360. INR 1.03. Sodium 136, potassium 4.5, chloride 103, serum bicarbonate 29, BUN 16, creatinine 0.72, glucose 106, lactic acid 2.4, troponin 0.04. BNP 529 which is at baseline. Urine shows 1+ leuk esterase, but no bacteria. Chest x- ray shows no acute intrathoracic process. EKG shows sinus rhythm with heart rate in 70s and no evidence of ischemia. ASSESSMENT: Ms. Parks is a 72-year-old female with past medical history of recent admission to hospital for dizziness with some episodes of hypotension thought to be secondary to medication usage with a decrease in her fentanyl, gabapentin, and tizanidine who presents to the hospital today again with an episode of dizziness found to be hypotensive with blood pressure 67/41. Our plans are for inpatient admission, expected length would be greater than 2 days for the followin. Dizziness: It seems the patient's dizziness would be related to her hypotension, although I will note that during the last hospitalization, the patient was hypotensive without episodes of dizziness. Our plans will be to treat hypotension by decreasing again her gabapentin, her fentanyl, and her tizanidine. Also plan to discontinue metoprolol and to increase prednisone from 5 to 10 mg p.o. daily. The patient's dizziness could also be related to vestibular dysfunction including benign positional paroxysmal vertigo. She has no nystagmus now on examination, but she is not dizzy. I have added meclizine and scopolamine in the event that these are contributing factors. 2. Chronic pain. Again we will decrease medications as noted above. 3. History of non-ST elevation myocardial infarction. Continue aspirin at 81 mg p.o. daily. The patient was on 325 mg b.i.d. and I think this is too high a dose given her history of recent GI bleeding and anemia. I will continue atorvastatin. 4. Hypertension. The patient's blood pressure is well at times and therefore we will need to hold metoprolol. 5. Hyperlipidemia. Continue Lipitor. 6. Depression. Continue bupropion. 7. Anemia. The patient's anemia is a little bit worse today. I think this is secondary to wwtqo-jv-halevnu diastolic congestive heart failure in the setting of high salt diet. Given her hypotension, I do not plan to diurese now, but we will order a low salt diet. In terms of her anemia, plan to check stool guaiac , but this does appear to be a chronic iron-deficiency anemia related to chronic disease and history of GI bleed. 8. Ldptz-ja-yspecia diastolic congestive heart failure. The patient does have lower extremity edema today, but given her low blood pressure, I do not plan to diurese. She will have SCDs on. We will keep her legs elevated all time. 9. History of rheumatoid arthritis. The patient will continue on prednisone with pain medications p.r.n. as tolerated. 10. DVT prophylaxis with SCDs. 11. Code status is full code. 12. Disposition. The patient has had multiple admissions to the hospital and she is resistant to [place] [facility] [place]. She does have aide services available at times during the day at home. I think that she seems to be failing living at home independently due to her chronic medical conditions and would likely benefit from a rehabilitation stay versus long term facility placement. This should be reviewed with the patient during this hospitalization. TIME SPENT: Approximately 60 minutes was spent on the admission of this patient , more than half time spent with the patient at the bedside reviewing the events leading up to this hospitalization, performing the physical examination, and reviewing my plan of care. FUNMILAYO GARCIA NP [id number]/CPS #: [id number] [facility]
[2018-01-10] MEDS: oxyCODONE TAB* 5 MG TAB PO PRN ×2 (14:24→20:19)
[2018-01-10] MEDS: Atorvastatin* 20 MG TAB PO SCH (17:17)
[2018-01-10] MEDS: fentaNYL Patch Check Q Shift 1 NOTE SCH (18:47)
[2018-01-10] MEDS: tiZANidine TAB* 2 MG PO PRN (20:18)
[2018-01-10] MEDS: Ferrous Sulfate TAB* 325 MG PO SCH (20:18)
[2018-01-10] MEDS: Cholecalciferol TAB* 400 UNIT PO SCH (20:18)
[2018-01-10] MEDS: Calcium/Vitamin D TAB 250/125* TAB PO SCH (20:19)
[2018-01-10] MEDS: Omeprazole CAP* 20 MG PO SCH (20:19)
[2018-01-10] MEDS: Docusate CAP* 100 MG PO SCH (20:19)
[2018-01-10] MEDS ORDERED: Famotidine TAB* 20 MG PO SCH (21:00)
[2018-01-11] MEDS: oxyCODONE TAB* 5 MG TAB PO PRN ×5 (02:08→23:57)
[2018-01-11] MEDS: Acetaminophen TAB* 325 MG PO PRN ×2 (02:10→10:15)
[2018-01-11] MEDS: Meclizine TAB* 12.5 MG PO SCH ×3 (05:44→21:31)
[2018-01-11] MEDS: Levothyroxine TAB* 50 MCG TAB PO SCH (05:44)
[2018-01-11 06:25] LABS: ABS Basophils 0 10^3/ul (0-0.2); ABS Eosinophils 0.2 10^3/ul (0-0.6); ABS Lymphocytes 1.3 10^3/ul (1.0-4.8); ABS Monocytes 0.6 10^3/ul (0-0.8); ABS Neutrophils 4.7 10^3/ul (1.5-7.7); ABS Nucleated RBC 0 10^3/ul; Eosinophil % 3.2 % (0-6); Hematocrit 28 % (35-47); Hemoglobin 8.8 g/dl (12.0-16.0); Lymphocyte % 19.3 % (25-47); Mean Corpuscular HGB Conc 32 g/dl (31-36); Mean Corpuscular Hemoglobin 23 pg (27-31); Mean Corpuscular Volume 72 fL (80-97); Mean Platelet Volume 7.1 um3 (7.4-10.4); Nucleated Red Blood Cells % 0; Platelet Count 369 10^3/ul (150-450); Red Blood Count 3.84 10^6/ul (4.0-5.4); Red Cell Distribution Width 20 % (10.5-15); White Blood Count 6.9 10^3/ul (3.5-10.8)
[2018-01-11] MEDS: fentaNYL Patch Check Q Shift 1 NOTE SCH ×2 (06:57→20:29)
[2018-01-11] MEDS ORDERED: Omeprazole CAP* 20 MG PO SCH (09:00)
--- NOTE | 2018-01-11 09:04 | PN ---
Subjective Date of Service: 01/11/18 Interval History: Patient seen and examined at bedside. Denies fever, chills, shortness of breath , chest discomfort, N/V/D. Pt states that she had mild lightheadedness when she was up to the commode earlier this morning. She describes this as a feeling that she is moving and not the room spinning. Complaining of nasal congestion today. Family History: Unchanged from Admission Social History: Unchanged from Admission Past Medical History: Unchanged from Admission Objective Active Medications: Acetaminophen (Tylenol Tab*) 650 mg PO Q6H PRN Reason: PAIN Aspirin (Aspirin 81 Mg Chew Tab*) 81 mg PO DAILY ORIN Atorvastatin Calcium (Lipitor*) 20 mg PO QPM ORIN Bupropion HCl (Bupropion Xl*) 300 mg PO DAILY ORIN Calcium/Vitamin D (Oscal D Tab 250/125*) 1 tab PO BID ORIN Cholecalciferol (Vitamin D Tab*) 400 unit PO BID ORIN Docusate Sodium (Colace Cap*) 100 mg PO BID ORIN Fentanyl (Duragesic Patch 12 Mcg/Hr *) 12 mcg TRANSDERM Q72H ORIN Ferrous Sulfate (Ferrous Sulfate Tab*) 325 mg PO BID ORIN Folic Acid (Folvite Tab*) 1 mg PO QAM ORIN Gabapentin (Neurontin Cap(*)) 100 mg PO TID ORIN Levothyroxine Sodium (Synthroid Tab*) 50 mcg PO 0600 ORIN Magnesium Oxide (Magox 400 Tab*) 800 mg PO DAILY ORIN Meclizine HCl (Antivert Tab*) 25 mg PO Q8HR ORIN Omeprazole (Prilosec Cap*) 20 mg PO BID ORIN Oxycodone HCl (Roxycodone Tab*) 5 mg PO Q6H PRN Reason: PAIN Pharmacy Profile Note (Fentanyl Patch Check Q Shift) 1 note N/A 0700,1900 ORIN Potassium Chloride (Klor Con Er Tab*) 20 meq PO DAILY ORIN Prednisone (Deltasone Tab*) 10 mg PO DAILY ORIN Scopolamine (Transderm-Scop 1.5 Mg Patch*) 1 patch TRANSDERM Q72H ORIN Tizanidine HCl (Zanaflex Tab*) 2 mg PO Q12H PRN Reason: muscle spasm Vital Signs - 8 hr 01/11/18 02:08 Respiratory 16 Rate Oxygen Devices in Use Now: Nasal Cannula - 2L Appearance: NAD, sitting up in bed Ears/Nose/Mouth/Throat: Mucous Membranes Moist Respiratory: Symmetrical Chest Expansion and Respiratory Effort, Clear to Auscultation Cardiovascular: NL Sounds; No Murmurs; No JVD, RRR Abdominal: NL Sounds; No Tenderness; No Distention Extremities: No Edema Skin: No Rash or Ulcers Neurological: Alert and Oriented x 3, NL Muscle Strength and Tone Lines/Tubes/Other Access: Clean, Dry and Intact Peripheral IV - site benign Nutrition: Taking PO's Result Diagrams: 01/11/18 06:07 01/10/18 08:29 Additional Lab and Data: Assess/Plan/Problems-Billing Assessment: Ms. Parks is a 72 yo female with PMH significant for NSTEMI, GI bleed, chronic D CHF, RA, chronic pain, COPD, PAD, hx DVT, HTN, HLD, and s/p neck stabilization who presented to the ED with complaints of dizziness. She was just recently admitted to the hospital for hypotension suspected to be secondary to medications and they have since been decreased. - Patient Problems (1) Dizziness Code(s): R42 - DIZZINESS AND GIDDINESS SNOMED Code(s): 464554365 Comment: - Pt hypotensive on admission - Suspect medication related, medications were decreased on the previous admission and again on admission - Suspected component of adrenal insufficiency, but ACTH stim test negative ( reviewed with Dr. Pimentel) - ? if there is a vestibular dysfunction, such as BPPV - Will check orthostatic vitals - Continue Prednisone (at increased dose), meclizine and scopolamine (2) Hypotension Comment: - Continues to have low BP - Continue decreased fentanyl patch - Hold metoprolol in setting of continued hypotension (3) Chronic pain Code(s): G89.29 - OTHER CHRONIC PAIN SNOMED Code(s): 74901353 Comment: - Continue Fentanyl patch, gabapentin, and zanaflex at lower dose with oxycodone prn. (4) Diastolic CHF, chronic Code(s): I50.32 - CHRONIC DIASTOLIC (CONGESTIVE) HEART FAILURE SNOMED Code(s) : 138083445 Comment: - No signs of acute exacerbation (No crackles or LE edema) - Continue daily weights and strict I+O's (5) CAD (coronary artery disease) Code(s): I25.10 - ATHSCL HEART DISEASE OF [place] CORONARY ARTERY W/O ANG PCTRS SNOMED Code(s): 93793976 Comment: - Continue ASA (decreased to 81 in setting of recent GI bleed) and continue lipitor - Holding metoprolol in setting of hypotension as above (6) Anemia Code(s): D64.9 - ANEMIA, UNSPECIFIED SNOMED Code(s): 457470443 Comment: - Chronic, MIR. HH stable - Will check stool occult blood (7) Anxiety and depression Code(s): F41.9 - ANXIETY DISORDER, UNSPECIFIED; F32.9 - MAJOR DEPRESSIVE DISORDER, SINGLE EPISODE, UNSPECIFIED SNOMED Code(s): 18802873 Comment: - Continue Bupropion (8) COPD (chronic obstructive pulmonary disease) Code(s): J44.9 - CHRONIC OBSTRUCTIVE PULMONARY DISEASE, UNSPECIFIED SNOMED Code(s): 20080331 Comment: - No signs of acute exacerbation at this time (9) Cervical spinal stenosis Code(s): M48.02 - SPINAL STENOSIS, CERVICAL REGION SNOMED Code(s): 45984601 Comment: - She is s/p replacement of failed C-spine hardware in 11/2017 at [place] - Keep [place] J collar in place as recommended - Small dehiscence at distal end of midline incision on posterior neck, healing - Continue daily dressing changes (10) GERD (gastroesophageal reflux disease) Code(s): K21.9 - GASTRO-ESOPHAGEAL REFLUX DISEASE WITHOUT ESOPHAGITIS SNOMED Code(s): 243396473 Comment: - Continue Famotidine and Omeprazole (11) HTN (hypertension) Code(s): I10 - ESSENTIAL (PRIMARY) HYPERTENSION SNOMED Code(s): 92197395 Comment: - Currently hypotensive - Contoinue to hold Metoprolol (12) Hypothyroidism Code(s): E03.9 - HYPOTHYROIDISM, UNSPECIFIED SNOMED Code(s): 12708556 Comment: - TSH 2.33 on 01/04/18 - Continue Levothyroxine 75 mcg daily (home dose) (13) PVD (peripheral vascular disease) Code(s): I73.9 - PERIPHERAL VASCULAR DISEASE, UNSPECIFIED SNOMED Code(s): 412004299 Comment: - Continue ASA and statin (14) Rheumatoid arthritis Code(s): M06.9 - RHEUMATOID ARTHRITIS, UNSPECIFIED SNOMED Code(s): 06850519 Comment: - On low dose prednisone 5mg daily (now increased to 10 mg daily) - Plaquenil was stopped for wound healing - Continue pain control (15) DVT prophylaxis Code(s): [id number] - SNOMED Code(s): 689296251 Comment: - SCDs to bilateral LE (16) DNR (do not resuscitate) Status and Disposition: Inpatient. Discharge to home when medically stable.
[2018-01-11] MEDS: Docusate CAP* 100 MG PO SCH ×2 (10:15→21:31)
[2018-01-11] MEDS: predniSONE TAB* 10 MG PO SCH (10:16)
[2018-01-11] MEDS: Aspirin 81 mg CHEW TAB* 81 MG TAB.CHEW PO SCH (10:16)
[2018-01-11] MEDS: Omeprazole CAP* 20 MG PO SCH ×2 (10:16→21:32)
[2018-01-11] MEDS: Folic Acid TAB* 1 MG PO SCH (10:16)
[2018-01-11] MEDS: Magnesium Oxide TAB* 400 MG PO SCH (10:16)
[2018-01-11] MEDS: BuPROPion XL* 300 MG TAB.XL PO SCH (10:16)
[2018-01-11] MEDS: Gabapentin CAP(*) 100 MG PO SCH ×3 (10:16→21:31)
[2018-01-11] MEDS: Cholecalciferol TAB* 400 UNIT PO SCH ×2 (10:16→21:31)
[2018-01-11] MEDS: Ferrous Sulfate TAB* 325 MG PO SCH ×2 (10:16→21:30)
[2018-01-11] MEDS: Calcium/Vitamin D TAB 250/125* TAB PO SCH ×2 (10:17→21:32)
[2018-01-11] MEDS: Potassium Chlor TAB* 20 MEQ TAB.ER PO SCH (10:17)
[2018-01-11] MEDS ORDERED: Saline NASAL SPRAY 0.65%* BTL BOTH NARES PRN (10:55)
[2018-01-11] MEDS: Acetaminophen TAB* 325 MG PO SCH ×2 (14:55→20:06)
[2018-01-11] MEDS: Atorvastatin* 20 MG TAB PO SCH (19:03)
[2018-01-12] MEDS: Acetaminophen TAB* 325 MG PO SCH ×4 (02:33→20:20)
[2018-01-12] MEDS: Levothyroxine TAB* 50 MCG TAB PO SCH (05:34)
[2018-01-12] MEDS: oxyCODONE TAB* 5 MG TAB PO PRN ×4 (05:34→23:42)
[2018-01-12] MEDS: Meclizine TAB* 12.5 MG PO SCH ×3 (05:34→21:50)
[2018-01-12] MEDS: fentaNYL Patch Check Q Shift 1 NOTE SCH ×2 (06:40→19:02)
[2018-01-12] MEDS: BuPROPion XL* 300 MG TAB.XL PO SCH (10:17)
[2018-01-12] MEDS: Ferrous Sulfate TAB* 325 MG PO SCH ×2 (10:17→21:52)
[2018-01-12] MEDS: Cholecalciferol TAB* 400 UNIT PO SCH ×2 (10:17→21:51)
[2018-01-12] MEDS: predniSONE TAB* 10 MG PO SCH (10:18)
[2018-01-12] MEDS: Magnesium Oxide TAB* 400 MG PO SCH (10:18)
[2018-01-12] MEDS: Potassium Chlor TAB* 20 MEQ TAB.ER PO SCH (10:19)
[2018-01-12] MEDS: Omeprazole CAP* 20 MG PO SCH ×2 (10:19→21:51)
[2018-01-12] MEDS: Gabapentin CAP(*) 100 MG PO SCH ×3 (10:19→21:51)
[2018-01-12] MEDS: Folic Acid TAB* 1 MG PO SCH (10:19)
[2018-01-12] MEDS: Docusate CAP* 100 MG PO SCH ×2 (10:20→21:51)
[2018-01-12] MEDS: Calcium/Vitamin D TAB 250/125* TAB PO SCH ×2 (10:20→21:51)
[2018-01-12] MEDS: Aspirin 81 mg CHEW TAB* 81 MG TAB.CHEW PO SCH (10:20)
--- NOTE | 2018-01-12 16:33 | PN ---
Subjective Date of Service: 01/12/18 Interval History: Patient seen and examined at bedside. Denies fever, chills, shortness of breath , chest discomfort, N/V/D. Pt states that over the last few days she has had increased urination over her baseline. She also report " sinus issues" with nasal congestion. She reports that the dizziness has improved from yesterday. Pain is a 6-7/10 and baseline pain is a 5/10. She states that it is taking 2 people to ambulate because of left knee pain. Will repeat UA, hold on ABX at this time. Family History: Unchanged from Admission Social History: Unchanged from Admission Past Medical History: Unchanged from Admission Objective Active Medications: Acetaminophen (Tylenol Tab*) 975 mg PO Q6H ORIN Aspirin (Aspirin 81 Mg Chew Tab*) 81 mg PO DAILY ORIN Atorvastatin Calcium (Lipitor*) 20 mg PO QPM ORIN Bupropion HCl (Bupropion Xl*) 300 mg PO DAILY ORIN Calcium/Vitamin D (Oscal D Tab 250/125*) 1 tab PO BID ORIN Cholecalciferol (Vitamin D Tab*) 400 unit PO BID ORIN Docusate Sodium (Colace Cap*) 100 mg PO BID ORIN Fentanyl (Duragesic Patch 12 Mcg/Hr *) 12 mcg TRANSDERM Q72H ORIN Ferrous Sulfate (Ferrous Sulfate Tab*) 325 mg PO BID ORIN Folic Acid (Folvite Tab*) 1 mg PO QAM ORIN Gabapentin (Neurontin Cap(*)) 100 mg PO TID ORIN Levothyroxine Sodium (Synthroid Tab*) 50 mcg PO 0600 ORIN Magnesium Oxide (Magox 400 Tab*) 800 mg PO DAILY ORIN Meclizine HCl (Antivert Tab*) 25 mg PO Q8HR ORIN Omeprazole (Prilosec Cap*) 20 mg PO BID ORIN Oxycodone HCl (Roxycodone Tab*) 5 mg PO Q4H PRN Reason: PAIN Pharmacy Profile Note (Fentanyl Patch Check Q Shift) 1 note N/A 0700,1900 ORIN Potassium Chloride (Klor Con Er Tab*) 20 meq PO DAILY ORIN Prednisone (Deltasone Tab*) 10 mg PO DAILY ORIN Scopolamine (Transderm-Scop 1.5 Mg Patch*) 1 patch TRANSDERM Q72H ORIN Sodium Chloride (Sodium Chloride 0.65% Nasal [place]*) 1 spray BOTH NARES Q4H PRN Reason: CONGESTION Tizanidine HCl (Zanaflex Tab*) 2 mg PO Q12H PRN Reason: muscle spasm Vital Signs - 8 hr 01/12/18 01/12/18 01/12/18 10:16 10:18 10:19 Temperature Pulse Rate Respiratory 19 22 22 Rate Blood Pressure (mmHg) O2 Sat by Pulse Oximetry 01/12/18 01/12/18 01/12/18 11:31 12:08 13:15 Temperature 98.3 F Pulse Rate 122 Respiratory 25 20 19 Rate Blood Pressure 152/85 (mmHg) O2 Sat by Pulse 99 Oximetry Oxygen Devices in Use Now: Nasal Cannula - 2L Appearance: NAD, laying in bed Eyes: PERRLA Ears/Nose/Mouth/Throat: Mucous Membranes Moist Respiratory: Symmetrical Chest Expansion and Respiratory Effort, Clear to Auscultation Cardiovascular: NL Sounds; No Murmurs; No JVD, RRR Abdominal: NL Sounds; No Tenderness; No Distention Extremities: No Edema Skin: No Rash or Ulcers Neurological: Alert and Oriented x 3, NL Muscle Strength and Tone Lines/Tubes/Other Access: Clean, Dry and Intact Peripheral IV - site benign Nutrition: Taking PO's Result Diagrams: 01/11/18 06:07 01/10/18 08:29 Additional Lab and Data: Assess/Plan/Problems-Billing Assessment: Ms. Parks is a 72 yo female with PMH significant for NSTEMI, GI bleed, chronic D CHF, RA, chronic pain, COPD, PAD, hx DVT, HTN, HLD, and s/p neck stabilization who presented to the ED with complaints of dizziness. She was just recently admitted to the hospital for hypotension suspected to be secondary to medications and they have since been decreased. - Patient Problems (1) Dizziness Code(s): R42 - DIZZINESS AND GIDDINESS SNOMED Code(s): 623254864 Comment: - Pt hypotensive on admission - Suspect medication related, medications were decreased on the previous admission and again on admission - Suspected component of adrenal insufficiency, but ACTH stim test negative ( reviewed with Dr. Pimentel) - ? if there is a vestibular dysfunction, such as BPPV - Will check orthostatic vitals - Continue Prednisone (at increased dose), meclizine and scopolamine (2) Hypotension Comment: - Resolved - Continue decreased fentanyl patch (3) Chronic pain Code(s): G89.29 - OTHER CHRONIC PAIN SNOMED Code(s): 68633387 Comment: - Continue Fentanyl patch, gabapentin, and zanaflex at lower dose with oxycodone prn. (4) Diastolic CHF, chronic Code(s): I50.32 - CHRONIC DIASTOLIC (CONGESTIVE) HEART FAILURE SNOMED Code(s) : 404665622 Comment: - No signs of acute exacerbation (No crackles or LE edema) - Continue daily weights and strict I+O's (5) CAD (coronary artery disease) Code(s): I25.10 - ATHSCL HEART DISEASE OF [place] CORONARY ARTERY W/O ANG PCTRS SNOMED Code(s): 63313698 Comment: - Continue ASA (decreased to 81 in setting of recent GI bleed) and continue lipitor - Resume metoprolol with hold parameters (6) Anemia Code(s): D64.9 - ANEMIA, UNSPECIFIED SNOMED Code(s): 898292751 Comment: - Chronic, MIR. HH stable - Will check stool occult blood (7) Anxiety and depression Code(s): F41.9 - ANXIETY DISORDER, UNSPECIFIED; F32.9 - MAJOR DEPRESSIVE DISORDER, SINGLE EPISODE, UNSPECIFIED SNOMED Code(s): 81100493 Comment: - Continue Bupropion (8) COPD (chronic obstructive pulmonary disease) Code(s): J44.9 - CHRONIC OBSTRUCTIVE PULMONARY DISEASE, UNSPECIFIED SNOMED Code(s): 50961046 Comment: - No signs of acute exacerbation at this time (9) Cervical spinal stenosis Code(s): M48.02 - SPINAL STENOSIS, CERVICAL REGION SNOMED Code(s): 49811852 Comment: - She is s/p replacement of failed C-spine hardware in 11/2017 at [place] - Keep [place] J collar in place as recommended - Small dehiscence at distal end of midline incision on posterior neck, healing - Continue daily dressing changes (10) GERD (gastroesophageal reflux disease) Code(s): K21.9 - GASTRO-ESOPHAGEAL REFLUX DISEASE WITHOUT ESOPHAGITIS SNOMED Code(s): 041529084 Comment: - Continue Famotidine and Omeprazole (11) HTN (hypertension) Code(s): I10 - ESSENTIAL (PRIMARY) HYPERTENSION SNOMED Code(s): 77461429 Comment: - Normotensive - Pt's BP has improved, now with tachycardia. Suspect this is secondary to rebound tachycardia from not being on betablocker - Resume Metoprolol with hold parameters (12) Hypothyroidism Code(s): E03.9 - HYPOTHYROIDISM, UNSPECIFIED SNOMED Code(s): 51355224 Comment: - TSH 2.33 on 01/04/18 - Continue Levothyroxine 75 mcg daily (home dose) (13) PVD (peripheral vascular disease) Code(s): I73.9 - PERIPHERAL VASCULAR DISEASE, UNSPECIFIED SNOMED Code(s): 738833439 Comment: - Continue ASA and statin (14) Rheumatoid arthritis Code(s): M06.9 - RHEUMATOID ARTHRITIS, UNSPECIFIED SNOMED Code(s): 99255221 Comment: - On low dose prednisone 5mg daily (now increased to 10 mg daily) - Plaquenil was stopped for wound healing - Continue pain control (15) DVT prophylaxis Code(s): SGG0025 - SNOMED Code(s): 707473250 Comment: - SCDs to bilateral LE (16) DNR (do not resuscitate) Status and Disposition: Inpatient. Discharge to home when medically stable.
[2018-01-12 16:37] LABS: Urine Appearance Clear; Urine Blood Negative (Negative); Urine Color Straw; Urine Ketones Negative (Negative); Urine Protein Negative (Negative); Urine Specific Gravity 1.009 (1.010-1.030); Urine Urobilinogen Negative (Negative)
[2018-01-12] MEDS: Atorvastatin* 20 MG TAB PO SCH (17:35)
[2018-01-12] MEDS: tiZANidine TAB* 2 MG PO PRN (19:04)
[2018-01-12] MEDS: Metoprolol Tartrate TAB* 25 MG PO SCH (21:52)
[2018-01-13] MEDS: Acetaminophen TAB* 325 MG PO SCH ×4 (03:08→20:22)
[2018-01-13] MEDS ORDERED: Calcium Carbonate CHEW TAB* 500 MG (TUMS) PO ONE (04:15)
[2018-01-13] MEDS: oxyCODONE TAB* 5 MG TAB PO PRN ×3 (04:57→20:32)
[2018-01-13] MEDS: fentaNYL Patch Check Q Shift 1 NOTE SCH ×2 (07:17→19:15)
[2018-01-13] MEDS: Meclizine TAB* 12.5 MG PO SCH ×3 (07:23→22:01)
[2018-01-13] MEDS: Levothyroxine TAB* 50 MCG TAB PO SCH (07:23)
[2018-01-13] MEDS: Cholecalciferol TAB* 400 UNIT PO SCH ×2 (08:07→20:23)
[2018-01-13] MEDS: Ferrous Sulfate TAB* 325 MG PO SCH ×2 (08:07→20:23)
[2018-01-13] MEDS: Aspirin 81 mg CHEW TAB* 81 MG TAB.CHEW PO SCH (08:08)
[2018-01-13] MEDS: Potassium Chlor TAB* 20 MEQ TAB.ER PO SCH (08:13)
[2018-01-13] MEDS: Omeprazole CAP* 20 MG PO SCH ×2 (08:14→20:22)
[2018-01-13] MEDS: Metoprolol Tartrate TAB* 25 MG PO SCH ×2 (08:14→20:32)
[2018-01-13] MEDS: Docusate CAP* 100 MG PO SCH ×2 (08:19→20:23)
[2018-01-13] MEDS: BuPROPion XL* 300 MG TAB.XL PO SCH (08:20)
[2018-01-13] MEDS: Magnesium Oxide TAB* 400 MG PO SCH (08:20)
[2018-01-13] MEDS: predniSONE TAB* 10 MG PO SCH (08:21)
[2018-01-13] MEDS: Folic Acid TAB* 1 MG PO SCH (08:22)
[2018-01-13] MEDS: Gabapentin CAP(*) 100 MG PO SCH ×3 (08:23→20:32)
[2018-01-13] MEDS: Calcium/Vitamin D TAB 250/125* TAB PO SCH ×2 (08:24→20:23)
[2018-01-13] MEDS: Calcium Carbonate CHEW TAB* 500 MG (TUMS) PO PRN ×2 (11:14→15:30)
[2018-01-13] MEDS: fentaNYL PATCH 12 MCG/HR TRANSDERM SCH (11:14)
--- NOTE | 2018-01-13 11:14 | CONSULT ---
Consult Consult: Consultation for Medical Decision Making Capacity: S: Psychiatry is asked to evaluate capacity in this 72 y.o. single, white female with multiple medical comorbidities, currently admitted to the Hospitalist Service for what is her 4th inpatient admission in the past month, this time secondary to dizziness related to hypotensive crisis. As per the attending clinician, nurse practitioner Salome Olmstead, the patient requires two people to lift her while attending to ADLs and would benefit from [facility] placement to improve her strength prior to returning home to her apartment in [place], [place]. The patient disagrees with this and is requesting discharge home. As per primary team, risks of refusing indicated subacute rehab placement include the potential for falls, bed sores, intracranial hemorrhage and . On exam the patient is pleasant, coherent and cooperative. She gives a detailed account of a fairly recent negative experience she had at the [facility] affiliated with [facility], which is apparently adjacent to her apartment building. She demonstrates an understanding of the primary team's motivation for recommending [facility], however, she feels she would be better served at home, where she has her daughter, who lives locally, 7 day/wk home health service and concerned neighbors looking out for her. She is also willing to get a medical alert bracelet to mitigate some of the risk associated with unsteady gait. The patient also claims to have a medical bed and portable commode next to her bed to reduce risk. O: the patient is an aging white female appearing older than stated age, wearing a cervical collar and patient gown; grooming is fair; she is calm and cooperative with no evidence of neuromuscular abnormality; speech is fluent; mood is euthymic with full affect; thought process is linear and thought content is significant for her desire to leave the hospital; she denies self harm; insight is fair; judgment somewhat limited vis a vis refusal of rehab; Cognitively she is awake, alert and oriented in all four spheres; she has intact immediate and delayed recall; fair attention. A/P: Capacity: Psychiatry deems that the patient has capacity to refuse [facility] placement. She demonstrates an awareness of the problems related to ADLs, the indicated treatment and the risks for refusing said treatment. Psychiatry is signing off but can be reconsulted in the event of any significant changes in the patient's presentation.
--- NOTE | 2018-01-13 12:11 | PN ---
Subjective Date of Service: 01/13/18 Interval History: Patient seen and examined at bedside. Denies fever, chills, shortness of breath , chest discomfort, N/V/D. Pt states that the dizziness has almost completely resolved. She feels that she would be able to manage ok at home, she is willing to work with PT today to show that she can transfer independently. Family History: Unchanged from Admission Social History: Unchanged from Admission Past Medical History: Unchanged from Admission Objective Active Medications: Acetaminophen (Tylenol Tab*) 975 mg PO Q6H [facility] Aspirin (Aspirin 81 Mg Chew Tab*) 81 mg PO DAILY [facility] Atorvastatin Calcium (Lipitor*) 20 mg PO QPM [facility] Bupropion HCl (Bupropion Xl*) 300 mg PO DAILY [facility] Calcium Carbonate (Tums*) 500 mg PO Q4H PRN Reason: INDIGESTION Calcium/Vitamin D (Oscal D Tab 250/125*) 1 tab PO BID [facility] Cholecalciferol (Vitamin D Tab*) 400 unit PO BID [facility] Docusate Sodium (Colace Cap*) 100 mg PO BID OR[facility] Fentanyl (Duragesic Patch 12 Mcg/Hr *) 12 mcg TRANSDERM Q72H [facility] Ferrous Sulfate (Ferrous Sulfate Tab*) 325 mg PO BID ORIN Folic Acid (Folvite Tab*) 1 mg PO QAM [facility] Gabapentin (Neurontin Cap(*)) 100 mg PO TID [facility] Levothyroxine Sodium (Synthroid Tab*) 50 mcg PO 0600 [facility] Magnesium Oxide (Magox 400 Tab*) 800 mg PO DAILY [facility] Meclizine HCl (Antivert Tab*) 25 mg PO Q8HR [facility] Metoprolol Tartrate (Lopressor Tab*) 25 mg PO BID [facility] Omeprazole (Prilosec Cap*) 20 mg PO BID [facility] Oxycodone HCl (Roxycodone Tab*) 5 mg PO Q4H PRN Reason: PAIN Pharmacy Profile Note (Fentanyl Patch Check Q Shift) 1 note N/A 0700,1900 [facility] Potassium Chloride (Klor Con Er Tab*) 20 meq PO DAILY [facility] Prednisone (Deltasone Tab*) 10 mg PO DAILY [facility] Scopolamine (Transderm-Scop 1.5 Mg Patch*) 1 patch TRANSDERM Q72H [facility] Sodium Chloride (Sodium Chloride 0.65% Nasal [place]*) 1 spray BOTH NARES Q4H PRN Reason: CONGESTION Tizanidine HCl (Zanaflex Tab*) 2 mg PO Q12H PRN Reason: muscle spasm Vital Signs - 8 hr 01/13/18 01/13/18 01/13/18 04:57 05:00 07:53 Temperature 98.0 F Pulse Rate 84 Respiratory 16 16 16 Rate Blood Pressure 126/72 (mmHg) O2 Sat by Pulse 99 Oximetry 01/13/18 01/13/18 01/13/18 08:00 08:19 08:23 Temperature Pulse Rate Respiratory 16 20 20 Rate Blood Pressure (mmHg) O2 Sat by Pulse Oximetry 01/13/18 01/13/18 11:14 11:23 Temperature 98.0 F Pulse Rate 78 Respiratory 16 17 Rate Blood Pressure 140/69 (mmHg) O2 Sat by Pulse 100 Oximetry Oxygen Devices in Use Now: Nasal Cannula - 2L Appearance: NAD, sitting up in bed Ears/Nose/Mouth/Throat: Mucous Membranes Moist Respiratory: Symmetrical Chest Expansion and Respiratory Effort, Clear to Auscultation Cardiovascular: NL Sounds; No Murmurs; No JVD, RRR Abdominal: NL Sounds; No Tenderness; No Distention Extremities: - - Left knee larger than the right, Pt states this is baseline. She appears to have an effusion in her left knee. There is no redness or warmth. Neurological: Alert and Oriented x 3, NL Muscle Strength and Tone Lines/Tubes/Other Access: Clean, Dry and Intact Peripheral IV - site benign Nutrition: Taking PO's Result Diagrams: 01/11/18 06:07 01/10/18 08:29 Additional Lab and Data: Microbiology and Other Data: Microbiology 01/13/18 10:00 Stool Occult Blood (KEI) - Final Stool Assess/Plan/Problems-Billing Assessment: Ms. Parks is a 72 yo female with PMH significant for NSTEMI, GI bleed, chronic D CHF, RA, chronic pain, COPD, PAD, hx DVT, HTN, HLD, and s/p neck stabilization who presented to the ED with complaints of dizziness. She was just recently admitted to the hospital for hypotension suspected to be secondary to medications and they have since been decreased. - Patient Problems (1) Dizziness Code(s): R42 - DIZZINESS AND GIDDINESS SNOMED Code(s): 514189370 Comment: - Mostly resolved - Multifactoral: Pt hypotensive on admission; Suspect medication related, medications were decreased; Suspected component of adrenal insufficiency; Suspect there is a vestibular dysfunction, such as BPPV - Will check orthostatic vitals - Continue medications at decreased doses, Prednisone (at increased dose), meclizine and scopolamine (2) Hypotension Comment: - Resolved - Continue decreased fentanyl patch (3) Decubitus skin ulcer Code(s): L89.90 - PRESSURE ULCER OF UNSPECIFIED SITE, UNSPECIFIED STAGE SNOMED Code(s): 838627951 Comment: - Chronic issues, has not worsen lately - Has been followed by wound clinic - Continue dressing changes, will ask wound clinic to eval prior to discharge (4) Chronic pain Code(s): G89.29 - OTHER CHRONIC PAIN SNOMED Code(s): 90610541 Comment: - Continue Fentanyl patch, gabapentin, and zanaflex at lower dose with oxycodone prn. (5) Diastolic CHF, chronic Code(s): I50.32 - CHRONIC DIASTOLIC (CONGESTIVE) HEART FAILURE SNOMED Code(s) : 049147080 Comment: - No signs of acute exacerbation (No crackles or LE edema) - Pt had LE edema on admission, now resolved. Never received diuretics - Continue daily weights and strict I+O's (6) CAD (coronary artery disease) Code(s): I25.10 - ATHSCL HEART DISEASE OF [place] CORONARY ARTERY W/O ANG PCTRS SNOMED Code(s): 79145657 Comment: - Continue ASA (decreased to 81 in setting of recent GI bleed), lipitor, and metoprolol with hold parameters (7) Anemia Code(s): D64.9 - ANEMIA, UNSPECIFIED SNOMED Code(s): 345779008 Comment: - Chronic, MIR. HH stable - Stool occult blood, negative (8) Anxiety and depression Code(s): F41.9 - ANXIETY DISORDER, UNSPECIFIED; F32.9 - MAJOR DEPRESSIVE DISORDER, SINGLE EPISODE, UNSPECIFIED SNOMED Code(s): 06528782 Comment: - Continue Bupropion (9) COPD (chronic obstructive pulmonary disease) Code(s): J44.9 - CHRONIC OBSTRUCTIVE PULMONARY DISEASE, UNSPECIFIED SNOMED Code(s): 70780607 Comment: - No signs of acute exacerbation at this time (10) Cervical spinal stenosis Code(s): M48.02 - SPINAL STENOSIS, CERVICAL REGION SNOMED Code(s): 27767027 Comment: - s/p replacement of failed C-spine hardware in 11/2017 at [place] - Keep [place] J collar in place as recommended - Small dehiscence at distal end of midline incision on posterior neck, healing - Continue daily dressing changes (no packing per Dr. Fatima) (11) GERD (gastroesophageal reflux disease) Code(s): K21.9 - GASTRO-ESOPHAGEAL REFLUX DISEASE WITHOUT ESOPHAGITIS SNOMED Code(s): 719956046 Comment: - Continue Famotidine and Omeprazole (12) HTN (hypertension) Code(s): I10 - ESSENTIAL (PRIMARY) HYPERTENSION SNOMED Code(s): 17635085 Comment: - Normotensive - Pt's BP has improved. Tachycardia has resolved, suspect this was secondary to rebound tachycardia from not being on betablocker - Continue Metoprolol with hold parameters (13) Hypothyroidism Code(s): E03.9 - HYPOTHYROIDISM, UNSPECIFIED SNOMED Code(s): 92696776 Comment: - TSH 2.33 on 01/04/18 - Continue Levothyroxine 75 mcg daily (home dose) (14) PVD (peripheral vascular disease) Code(s): I73.9 - PERIPHERAL VASCULAR DISEASE, UNSPECIFIED SNOMED Code(s): 737667750 Comment: - Continue ASA and statin (15) Rheumatoid arthritis Code(s): M06.9 - RHEUMATOID ARTHRITIS, UNSPECIFIED SNOMED Code(s): 44807452 Comment: - On low dose prednisone 5mg daily (now increased to 10 mg daily) - Plaquenil was stopped for wound healing - Continue pain control (16) DVT prophylaxis Code(s): IBQ9137 - SNOMED Code(s): 750006859 Comment: - SCDs to bilateral LE (17) DNR (do not resuscitate) Status and Disposition: Inpatient. Discharge to home when medically stable.
[2018-01-13] MEDS: Scopolamine 1.5 mg* PATCH TRANSDERM SCH (13:23)
[2018-01-13] MEDS: tiZANidine TAB* 2 MG PO PRN (16:24)
[2018-01-13] MEDS: Atorvastatin* 20 MG TAB PO SCH (16:24)
[2018-01-14] MEDS: Acetaminophen TAB* 325 MG PO SCH ×4 (01:56→20:51)
[2018-01-14] MEDS: oxyCODONE TAB* 5 MG TAB PO PRN ×4 (01:56→20:53)
[2018-01-14] MEDS: tiZANidine TAB* 2 MG PO PRN ×2 (05:42→18:02)
[2018-01-14] MEDS: Meclizine TAB* 12.5 MG PO SCH ×3 (05:42→22:16)
[2018-01-14] MEDS: Levothyroxine TAB* 50 MCG TAB PO SCH (05:42)
[2018-01-14] MEDS: fentaNYL Patch Check Q Shift 1 NOTE SCH ×2 (07:13→19:18)
[2018-01-14] MEDS ORDERED: Ondansetron 40 MG VIAL* 2 MG/ML 20 ML VIAL IV PRN (08:27)
[2018-01-14] MEDS: Calcium Carbonate CHEW TAB* 500 MG (TUMS) PO PRN (08:47)
[2018-01-14] MEDS: Metoprolol Tartrate TAB* 25 MG PO SCH ×2 (10:03→21:01)
[2018-01-14] MEDS: Al Hydrox/Mg Hydrox/Simet LIQ* 30 ML UDC PO PRN (10:20)
[2018-01-14] MEDS: Gabapentin CAP(*) 100 MG PO SCH ×3 (11:05→20:51)
[2018-01-14] MEDS: Magnesium Oxide TAB* 400 MG PO SCH (11:06)
[2018-01-14] MEDS: Potassium Chlor TAB* 20 MEQ TAB.ER PO SCH (11:06)
[2018-01-14] MEDS: Calcium/Vitamin D TAB 250/125* TAB PO SCH ×2 (11:06→20:51)
[2018-01-14] MEDS: Aspirin 81 mg CHEW TAB* 81 MG TAB.CHEW PO SCH (11:06)
[2018-01-14] MEDS: Folic Acid TAB* 1 MG PO SCH (11:06)
[2018-01-14] MEDS: Docusate CAP* 100 MG PO SCH ×2 (11:06→20:51)
[2018-01-14] MEDS: Ferrous Sulfate TAB* 325 MG PO SCH ×2 (11:06→20:53)
[2018-01-14] MEDS: Cholecalciferol TAB* 400 UNIT PO SCH ×2 (11:06→20:52)
[2018-01-14] MEDS: predniSONE TAB* 10 MG PO SCH (11:27)
[2018-01-14] MEDS: BuPROPion XL* 300 MG TAB.XL PO SCH (11:27)
[2018-01-14] MEDS: Nitrofurantoin Macrocrystals* 50 MG CAP PO SCH ×2 (11:27→21:05)
[2018-01-14] MEDS: Omeprazole CAP* 20 MG PO SCH ×2 (11:27→20:52)
--- NOTE | 2018-01-14 12:59 | PN ---
Subjective Date of Service: 01/14/18 Interval History: Mrs. Parks complaints of nausea today. Feels "sick to her stomach", but no vomiting yet. Also notes her joints pain has gotten worse today. She is tearful and feels like "giving it up". Daughter in room as well, wants to discuss discharge plans. She feels patient can no longer take care of herself, absolutely refusing any options for SNF placement. They both would like to consider Hospice referral. Denies chest pain or SOB. Family History: Unchanged from Admission Social History: Unchanged from Admission Past Medical History: Unchanged from Admission Objective Active Medications: Acetaminophen (Tylenol Tab*) 975 mg PO Q6H [facility] Last Admin: 01/14/18 08:46 Dose: 975 mg Al Hydrox/Mg Hydrox/Simethicone (Maalox Plus*) 30 ml PO Q6H PRN PRN Reason: INDIGESTION Last Admin: 01/14/18 10:20 Dose: 30 ml Aspirin (Aspirin 81 Mg Chew Tab*) 81 mg PO DAILY [facility] Last Admin: 01/14/18 11:06 Dose: Not Given Atorvastatin Calcium (Lipitor*) 20 mg PO QPM [facility] Last Admin: 01/13/18 16:24 Dose: 20 mg Bupropion HCl (Bupropion Xl*) 300 mg PO DAILY [facility] Last Admin: 01/14/18 11:27 Dose: 300 mg Calcium Carbonate (Tums*) 500 mg PO Q4H PRN PRN Reason: INDIGESTION Last Admin: 01/14/18 08:47 Dose: 500 mg Calcium/Vitamin D (Oscal D Tab 250/125*) 1 tab PO BID [facility] Last Admin: 01/14/18 11:06 Dose: Not Given Cholecalciferol (Vitamin D Tab*) 400 unit PO BID [facility] Last Admin: 01/14/18 11:06 Dose: Not Given Docusate Sodium (Colace Cap*) 100 mg PO BID [facility] Last Admin: 01/14/18 11:06 Dose: Not Given Fentanyl (Duragesic Patch 12 Mcg/Hr *) 12 mcg TRANSDERM Q72H [facility] Last Admin: 01/13/18 11:14 Dose: 12 mcg Ferrous Sulfate (Ferrous Sulfate Tab*) 325 mg PO BID [facility] Last Admin: 01/14/18 11:06 Dose: Not Given Folic Acid (Folvite Tab*) 1 mg PO QAM [facility] Last Admin: 01/14/18 11:06 Dose: Not Given Gabapentin (Neurontin Cap(*)) 100 mg PO TID [facility] Last Admin: 01/14/18 11:05 Dose: Not Given Levothyroxine Sodium (Synthroid Tab*) 50 mcg PO 0600 [facility] Last Admin: 01/14/18 05:42 Dose: 50 mcg Magnesium Oxide (Magox 400 Tab*) 800 mg PO DAILY [facility] Last Admin: 01/14/18 11:06 Dose: Not Given Meclizine HCl (Antivert Tab*) 25 mg PO Q8HR [facility] Last Admin: 01/14/18 05:42 Dose: 25 mg Metoprolol Tartrate (Lopressor Tab*) 25 mg PO BID [facility] Last Admin: 01/14/18 10:03 Dose: Not Given Nitrofurantoin Macrocrystals (Macrodantin*) 50 mg PO BID [facility] Last Admin: 01/14/18 11:27 Dose: 50 mg Omeprazole (Prilosec Cap*) 20 mg PO BID [facility] Last Admin: 01/14/18 11:27 Dose: 20 mg Ondansetron HCl (Zofran 40 Mg Vial*) 4 mg IV Q6H PRN PRN Reason: NAUSEA Last Admin: 01/14/18 08:53 Dose: 4 mg Oxycodone HCl (Roxycodone Tab*) 5 mg PO Q4H PRN PRN Reason: PAIN Last Admin: 01/14/18 08:46 Dose: 5 mg Pharmacy Profile Note (Fentanyl Patch Check Q Shift) 1 note N/A 0700,1900 [facility] Last Admin: 01/14/18 07:13 Dose: 1 note Potassium Chloride (Klor Con Er Tab*) 20 meq PO DAILY [facility] Last Admin: 01/14/18 11:06 Dose: Not Given Prednisone (Deltasone Tab*) 10 mg PO DAILY [facility] Last Admin: 01/14/18 11:27 Dose: 10 mg Scopolamine (Transderm-Scop 1.5 Mg Patch*) 1 patch TRANSDERM Q72H [facility] Last Admin: 01/13/18 13:23 Dose: Not Given Sodium Chloride (Sodium Chloride 0.65% Nasal [place]*) 1 spray BOTH NARES Q4H PRN PRN Reason: CONGESTION Tizanidine HCl (Zanaflex Tab*) 2 mg PO Q12H PRN PRN Reason: muscle spasm Last Admin: 01/14/18 05:42 Dose: 2 mg Vital Signs - 8 hr 01/14/18 01/14/18 01/14/18 05:13 07:36 08:00 Temperature 97.7 F Pulse Rate 82 Respiratory 16 16 18 Rate Blood Pressure 96/51 (mmHg) O2 Sat by Pulse Oximetry 01/14/18 01/14/18 01/14/18 08:46 09:34 11:06 Temperature 98.8 F Pulse Rate 83 Respiratory 20 16 Rate Blood Pressure 106/52 97/46 (mmHg) O2 Sat by Pulse 100 Oximetry 01/14/18 11:30 Temperature Pulse Rate Respiratory 18 Rate Blood Pressure (mmHg) O2 Sat by Pulse Oximetry Oxygen Devices in Use Now: Nasal Cannula Appearance: Appears depressed and upset, but in NAD. Eyes: No Scleral Icterus, PERRLA Ears/Nose/Mouth/Throat: Clear Oropharnyx, Mucous Membranes Moist Neck: NL Appearance and Movements; NL JVP, Trachea Midline Respiratory: Symmetrical Chest Expansion and Respiratory Effort, Clear to Auscultation Cardiovascular: NL Sounds; No Murmurs; No JVD, RRR Abdominal: NL Sounds; No Tenderness; No Distention Extremities: No Edema, - Skin: No Rash or Ulcers Neurological: Alert and Oriented x 3, NL Sensation Nutrition: Taking PO's Result Diagrams: 01/11/18 06:07 01/10/18 08:29 Additional Lab and Data: . Microbiology and Other Data: . Diagnostic Imaging: . EKG Data: . Assess/Plan/Problems-Billing Assessment: Ms. Parks is a 72 yo female with PMH significant for NSTEMI, GI bleed, chronic D CHF, RA, chronic pain, COPD, PAD, hx DVT, HTN, HLD, and s/p neck stabilization who presented to the ED with complaints of dizziness. She was just recently admitted to the hospital for hypotension suspected to be secondary to medications and they have since been decreased. - Patient Problems (1) Dizziness Current Visit: Yes Status: Acute Comment: - Mostly resolved - Multifactoral: Pt hypotensive on admission; Suspect medication related, medications were decreased; Suspected component of adrenal insufficiency; Suspect there is a vestibular dysfunction, such as BPPV - Orthostatic vitals stable - Continue medications at decreased doses, Prednisone (at increased dose), meclizine and scopolamine (2) Diastolic CHF, chronic Current Visit: Yes Status: Acute Comment: - No signs of acute exacerbation (No crackles or LE edema) - Pt had LE edema on admission, now resolved. Never received diuretics - Continue daily weights and strict I+O's (3) Hypotension Current Visit: No Status: Acute Comment: - Resolved - Fentanyl patch back to 25 mcg due to increasing RA pain (4) Anemia Current Visit: No Status: Chronic Comment: - Chronic, MIR. HH stable - Stool occult blood, negative (5) Anxiety and depression Current Visit: No Status: Chronic Comment: - Continue Bupropion (6) CAD (coronary artery disease) Current Visit: No Status: Chronic Comment: - Continue ASA (decreased to 81 in setting of recent GI bleed), lipitor, and metoprolol with hold parameters (7) COPD (chronic obstructive pulmonary disease) Current Visit: No Status: Chronic Comment: - No signs of acute exacerbation at this time (8) Chronic pain Current Visit: No Status: Chronic Comment: - Continue Fentanyl patch, gabapentin, and zanaflex at lower dose with oxycodone prn. (9) GERD (gastroesophageal reflux disease) Current Visit: No Status: Chronic Comment: - Continue Omeprazole (10) Hypothyroidism Current Visit: No Status: Chronic Comment: - TSH 2.33 on 01/04/18 - Continue Levothyroxine 75 mcg daily (home dose) (11) Rheumatoid arthritis Current Visit: No Status: Chronic Comment: - On low dose prednisone 5mg daily (now increased to 10 mg daily) - Continue pain control (12) Urinary tract infection Current Visit: Yes Status: Acute Comment: - C&S showed E.Coli sensitive to all, but quinolones. - Started Nitrofurantoin - Some urinary urgency, but no dysuria, fever or chills. (13) DVT prophylaxis Current Visit: Yes Status: Acute Comment: - SCDs to bilateral LE (14) DNR (do not resuscitate) Current Visit: Yes Status: Acute Comment: Status and Disposition: Inpatient. Discharge to home when medically stable. [facility] manager and manager social are sending out Hospice referral request. Had a long discussion with Mrs. Parks and her daughter. They wish for the patient to go home on Hospice care. No interest for SNF placement. Await discharge plans.
[2018-01-14] MEDS: fentaNYL PATCH 25 MCG/HR TRANSDERM SCH (13:12)
[2018-01-14] MEDS: Atorvastatin* 20 MG TAB PO SCH (18:02)
--- NOTE | 2018-01-14 19:27 | PN ---
Progress Note - Progress Note Date of Service: 01/14/18 Note: Cross coverage: Pyridium added for dysuria in setting of UTI 6 doses ordered
[2018-01-14] MEDS: Phenazopyridine TAB* 100 MG PO SCH (20:53)
--- NOTE | 2018-01-14 22:46 | PN ---
Progress Note - Progress Note Date of Service: 01/14/18 Note: Cross cover note: SBP in 80s on 2 checks Asymptomatic Tx 500cc NS at 150cc/hr and follow
[2018-01-14] MEDS: NS 0.9% 500 ML* 500 ML IV ONE ×2 (22:51→22:55)
[2018-01-15] MEDS: Acetaminophen TAB* 325 MG PO SCH ×4 (02:23→21:07)
[2018-01-15] MEDS: Levothyroxine TAB* 50 MCG TAB PO SCH (05:53)
[2018-01-15] MEDS: Meclizine TAB* 12.5 MG PO SCH ×3 (05:53→21:07)
[2018-01-15] MEDS: oxyCODONE TAB* 5 MG TAB PO PRN (05:53)
[2018-01-15] MEDS: tiZANidine TAB* 2 MG PO PRN ×2 (05:53→21:08)
[2018-01-15] MEDS: fentaNYL Patch Check Q Shift 1 NOTE SCH ×2 (07:09→18:55)
[2018-01-15] MEDS: Folic Acid TAB* 1 MG PO SCH ×2 (10:40→11:22)
[2018-01-15] MEDS: Metoprolol Tartrate TAB* 25 MG PO SCH ×3 (10:40→21:07)
[2018-01-15] MEDS: Ferrous Sulfate TAB* 325 MG PO SCH ×2 (10:40→21:08)
[2018-01-15] MEDS: Docusate CAP* 100 MG PO SCH ×2 (10:40→21:08)
[2018-01-15] MEDS: Calcium/Vitamin D TAB 250/125* TAB PO SCH ×3 (10:40→21:08)
[2018-01-15] MEDS: Aspirin 81 mg CHEW TAB* 81 MG TAB.CHEW PO SCH (10:40)
[2018-01-15] MEDS: Potassium Chlor TAB* 20 MEQ TAB.ER PO SCH (10:40)
[2018-01-15] MEDS: Cholecalciferol TAB* 400 UNIT PO SCH ×3 (10:40→21:07)
[2018-01-15] MEDS: Omeprazole CAP* 20 MG PO SCH ×2 (10:40→21:07)
[2018-01-15] MEDS: Magnesium Oxide TAB* 400 MG PO SCH (10:40)
[2018-01-15] MEDS: Gabapentin CAP(*) 100 MG PO SCH ×3 (10:40→21:08)
[2018-01-15] MEDS: predniSONE TAB* 10 MG PO SCH (10:40)
[2018-01-15] MEDS: BuPROPion XL* 300 MG TAB.XL PO SCH (10:40)
[2018-01-15] MEDS: Phenazopyridine TAB* 100 MG PO SCH ×3 (10:41→21:08)
[2018-01-15] MEDS: Nitrofurantoin Macrocrystals* 50 MG CAP PO SCH ×2 (10:41→21:09)
[2018-01-15] MEDS: Al Hydrox/Mg Hydrox/Simet LIQ* 30 ML UDC PO PRN (10:41)
--- NOTE | 2018-01-15 11:04 | PN ---
Subjective Date of Service: 01/15/18 Interval History: Mrs. Parks is doing much better today. Pain has improved since yesterday. Events noted from last night, BP soft, 500cc bolus given. Patient comtinues to be asymptomatic. Denies dizziness, syncope, chest pain or SOB. Appetite is better, had a BM this morning. She has no complaints today. Family History: Unchanged from Admission Social History: Unchanged from Admission Past Medical History: Unchanged from Admission Objective Active Medications: Acetaminophen (Tylenol Tab*) 975 mg PO Q6H [facility] Last Admin: 01/15/18 10:39 Dose: 975 mg Al Hydrox/Mg Hydrox/Simethicone (Maalox Plus*) 30 ml PO Q6H PRN PRN Reason: INDIGESTION Last Admin: 01/15/18 10:41 Dose: 30 ml Aspirin (Aspirin 81 Mg Chew Tab*) 81 mg PO DAILY [facility] Last Admin: 01/15/18 10:40 Dose: 81 mg Atorvastatin Calcium (Lipitor*) 20 mg PO QPM [facility] Last Admin: 01/14/18 18:02 Dose: 20 mg Bupropion HCl (Bupropion Xl*) 300 mg PO DAILY [facility] Last Admin: 01/15/18 10:40 Dose: 300 mg Calcium Carbonate (Tums*) 500 mg PO Q4H PRN PRN Reason: INDIGESTION Last Admin: 01/14/18 08:47 Dose: 500 mg Calcium/Vitamin D (Oscal D Tab 250/125*) 1 tab PO BID [facility] Last Admin: 01/14/18 20:51 Dose: 1 tab Cholecalciferol (Vitamin D Tab*) 400 unit PO BID [facility] Last Admin: 01/14/18 20:52 Dose: 400 unit Docusate Sodium (Colace Cap*) 100 mg PO BID [facility] Last Admin: 01/15/18 10:40 Dose: 100 mg Fentanyl (Duragesic Patch 25 Mcg/Hr*) 25 mcg TRANSDERM Q72H [facility] Last Admin: 01/14/18 13:12 Dose: 25 mcg Ferrous Sulfate (Ferrous Sulfate Tab*) 325 mg PO BID [facility] Last Admin: 01/15/18 10:40 Dose: 325 mg Folic Acid (Folvite Tab*) 1 mg PO QAM [facility] Last Admin: 01/14/18 11:06 Dose: Not Given Gabapentin (Neurontin Cap(*)) 100 mg PO TID [facility] Last Admin: 01/15/18 10:40 Dose: 100 mg Levothyroxine Sodium (Synthroid Tab*) 50 mcg PO 0600 [facility] Last Admin: 01/15/18 05:53 Dose: 50 mcg Magnesium Oxide (Magox 400 Tab*) 800 mg PO DAILY [facility] Last Admin: 01/15/18 10:40 Dose: 800 mg Meclizine HCl (Antivert Tab*) 25 mg PO Q8HR [facility] Last Admin: 01/15/18 05:53 Dose: 25 mg Metoprolol Tartrate (Lopressor Tab*) 25 mg PO BID [facility] Last Admin: 01/14/18 21:01 Dose: Not Given Nitrofurantoin Macrocrystals (Macrodantin*) 50 mg PO BID [facility] Last Admin: 01/15/18 10:41 Dose: 50 mg Omeprazole (Prilosec Cap*) 20 mg PO BID [facility] Last Admin: 01/15/18 10:40 Dose: 20 mg Ondansetron HCl (Zofran 40 Mg Vial*) 4 mg IV Q6H PRN PRN Reason: NAUSEA Last Admin: 01/14/18 08:53 Dose: 4 mg Oxycodone HCl (Roxycodone Tab*) 5 mg PO Q4H PRN PRN Reason: PAIN Last Admin: 01/15/18 05:53 Dose: 5 mg Pharmacy Profile Note (Fentanyl Patch Check Q Shift) 1 note N/A 0700,1900 [facility] Last Admin: 01/15/18 07:09 Dose: 1 note Phenazopyridine HCl (Pyridium Tab*) 200 mg PO TID [facility] Stop: 01/16/18 14:01 Last Admin: 01/15/18 10:41 Dose: 200 mg Potassium Chloride (Klor Con Er Tab*) 20 meq PO DAILY [facility] Last Admin: 01/15/18 10:40 Dose: 20 meq Prednisone (Deltasone Tab*) 10 mg PO DAILY [facility] Last Admin: 01/15/18 10:40 Dose: 10 mg Scopolamine (Transderm-Scop 1.5 Mg Patch*) 1 patch TRANSDERM Q72H [facility] Last Admin: 01/13/18 13:23 Dose: Not Given Sodium Chloride (Sodium Chloride 0.65% Nasal [place]*) 1 spray BOTH NARES Q4H PRN PRN Reason: CONGESTION Tizanidine HCl (Zanaflex Tab*) 2 mg PO Q12H PRN PRN Reason: muscle spasm Last Admin: 01/15/18 05:53 Dose: 2 mg Vital Signs - 8 hr 01/15/18 01/15/18 01/15/18 05:53 07:29 08:00 Temperature 97.6 F Pulse Rate 87 Respiratory 17 22 20 Rate Blood Pressure 93/40 (mmHg) O2 Sat by Pulse 99 Oximetry 01/15/18 10:40 Temperature Pulse Rate Respiratory 18 Rate Blood Pressure (mmHg) O2 Sat by Pulse Oximetry Oxygen Devices in Use Now: Nasal Cannula Appearance: Appears comfortable and in NAD Eyes: No Scleral Icterus, PERRLA Ears/Nose/Mouth/Throat: Clear Oropharnyx, Mucous Membranes Moist Neck: NL Appearance and Movements; NL JVP, Trachea Midline Respiratory: Symmetrical Chest Expansion and Respiratory Effort, Clear to Auscultation Cardiovascular: NL Sounds; No Murmurs; No JVD, RRR Abdominal: NL Sounds; No Tenderness; No Distention Extremities: No Edema Neurological: Alert and Oriented x 3, NL Sensation Nutrition: Taking PO's Result Diagrams: 01/11/18 06:07 01/10/18 08:29 Additional Lab and Data: . Microbiology and Other Data: . Diagnostic Imaging: . EKG Data: . Assess/Plan/Problems-Billing Assessment: Ms. Parks is a 72 yo female with PMH significant for NSTEMI, GI bleed, chronic D CHF, RA, chronic pain, COPD, PAD, hx DVT, HTN, HLD, and s/p neck stabilization who presented to the ED with complaints of dizziness. She was just recently admitted to the hospital for hypotension suspected to be secondary to medications and they have since been decreased. Now awaiting Hospice services to consult. - Patient Problems (1) Dizziness Current Visit: Yes Status: Acute Comment: - Mostly resolved - Multifactoral: Pt hypotensive on admission; Suspect medication related, medications were decreased; Suspected component of adrenal insufficiency; Suspect there is a vestibular dysfunction, such as BPPV - Orthostatic vitals stable - Continue medications at decreased doses, Prednisone (at 10 mg dose), meclizine and scopolamine (2) Diastolic CHF, chronic Current Visit: Yes Status: Acute Comment: - No signs of acute exacerbation (No crackles or LE edema) - Pt had LE edema on admission, now resolved. Never received diuretics - Continue daily weights and strict I+O's (3) Hypotension Current Visit: No Status: Acute Comment: - Resolved - Fentanyl patch back to 25 mcg due to increasing RA pain (4) Anemia Current Visit: No Status: Chronic Comment: - Chronic, MIR. HH stable - Stool occult blood, negative (5) Anxiety and depression Current Visit: No Status: Chronic Comment: - Continue Bupropion (6) CAD (coronary artery disease) Current Visit: No Status: Chronic Comment: - Continue ASA (decreased to 81 in setting of recent GI bleed), lipitor, and metoprolol with hold parameters (7) COPD (chronic obstructive pulmonary disease) Current Visit: No Status: Chronic Comment: - No signs of acute exacerbation at this time (8) Chronic pain Current Visit: No Status: Chronic Comment: - Continue Fentanyl patch, gabapentin, and zanaflex at lower dose with oxycodone prn. (9) GERD (gastroesophageal reflux disease) Current Visit: No Status: Chronic Comment: - Continue Omeprazole (10) Hypothyroidism Current Visit: No Status: Chronic Comment: - TSH 2.33 on 01/04/18 - Continue Levothyroxine 75 mcg daily (home dose) (11) Rheumatoid arthritis Current Visit: No Status: Chronic Comment: - On low dose prednisone 5mg daily (now increased to 10 mg daily) - Continue pain control (12) Urinary tract infection Current Visit: Yes Status: Acute Comment: - C&S showed E.Coli sensitive to all, but quinolones. - Started Nitrofurantoin - Some urinary urgency, also dysuria last night, but no fever or chills. - Pyrimidium was added with good relief (13) DVT prophylaxis Current Visit: Yes Status: Acute Comment: - SCDs to bilateral LE (14) DNR (do not resuscitate) Current Visit: Yes Status: Acute Comment: Status and Disposition: Inpatient. Discharge to home when medically stable. preparation room manager and high school social studies tutor are sending out Hospice referral request. Had a long discussion with Mrs. Parks and her daughter. They wish for the patient to go home on Hospice care. No interest for SNF placement. Await Hospice consult for home discharge likely by Wednesday.
[2018-01-15] MEDS: Atorvastatin* 20 MG TAB PO SCH (18:12)
[2018-01-15] MEDS: Calcium Carbonate CHEW TAB* 500 MG (TUMS) PO PRN (21:16)
--- NOTE | 2018-01-16 00:45 | PN ---
Progress Note - Progress Note Date of Service: 01/16/18 Note: Cross cover: BP decreased systolics in 80s. Bolus 500cc NS at 200cc/hr and re-evaluate
[2018-01-16] MEDS ORDERED: NS 0.9% 500 ML* 500 ML IV ONE (01:00)
[2018-01-16] MEDS: Acetaminophen TAB* 325 MG PO SCH ×4 (02:31→21:23)
[2018-01-16] MEDS: Levothyroxine TAB* 50 MCG TAB PO SCH (06:13)
[2018-01-16] MEDS: Meclizine TAB* 12.5 MG PO SCH ×3 (06:13→21:24)
[2018-01-16] MEDS: fentaNYL Patch Check Q Shift 1 NOTE SCH ×2 (06:38→19:07)
--- NOTE | 2018-01-16 07:55 | PN ---
Subjective Date of Service: 01/16/18 Interval History: Mrs. Parks continues to do well. She is feeling much better today. Events noted from last night, another 500cc IVF bolus was given for low BP with good response. Denies chest pain, SOB, headache or dizziness. Her appetite is improving. She has no complaints today. Family History: Unchanged from Admission Social History: Unchanged from Admission Past Medical History: Unchanged from Admission Objective Active Medications: Acetaminophen (Tylenol Tab*) 975 mg PO Q6H [facility] Last Admin: 01/16/18 02:31 Dose: 975 mg Al Hydrox/Mg Hydrox/Simethicone (Maalox Plus*) 30 ml PO Q6H PRN PRN Reason: INDIGESTION Last Admin: 01/15/18 10:41 Dose: 30 ml Aspirin (Aspirin 81 Mg Chew Tab*) 81 mg PO DAILY [facility] Last Admin: 01/15/18 10:40 Dose: 81 mg Atorvastatin Calcium (Lipitor*) 20 mg PO QPM [facility] Last Admin: 01/15/18 18:12 Dose: 20 mg Bupropion HCl (Bupropion Xl*) 300 mg PO DAILY [facility] Last Admin: 01/15/18 10:40 Dose: 300 mg Calcium Carbonate (Tums*) 500 mg PO Q4H PRN PRN Reason: INDIGESTION Last Admin: 01/15/18 21:16 Dose: 500 mg Calcium/Vitamin D (Oscal D Tab 250/125*) 1 tab PO BID [facility] Last Admin: 01/15/18 21:08 Dose: 1 tab Cholecalciferol (Vitamin D Tab*) 400 unit PO BID [facility] Last Admin: 01/15/18 21:07 Dose: 400 unit Docusate Sodium (Colace Cap*) 100 mg PO BID [facility] Last Admin: 01/15/18 21:08 Dose: 100 mg Fentanyl (Duragesic Patch 25 Mcg/Hr*) 25 mcg TRANSDERM Q72H [facility] Last Admin: 01/14/18 13:12 Dose: 25 mcg Ferrous Sulfate (Ferrous Sulfate Tab*) 325 mg PO BID [facility] Last Admin: 01/15/18 21:08 Dose: 325 mg Folic Acid (Folvite Tab*) 1 mg PO QAM [facility] Last Admin: 01/15/18 11:22 Dose: Not Given Gabapentin (Neurontin Cap(*)) 100 mg PO TID [facility] Last Admin: 01/15/18 21:08 Dose: 100 mg Levothyroxine Sodium (Synthroid Tab*) 50 mcg PO 0600 [facility] Last Admin: 01/16/18 06:13 Dose: 50 mcg Magnesium Oxide (Magox 400 Tab*) 800 mg PO DAILY [facility] Last Admin: 01/15/18 10:40 Dose: 800 mg Meclizine HCl (Antivert Tab*) 25 mg PO Q8HR [facility] Last Admin: 01/16/18 06:13 Dose: 25 mg Metoprolol Tartrate (Lopressor Tab*) 25 mg PO BID [facility] Last Admin: 01/15/18 21:07 Dose: 25 mg Nitrofurantoin Macrocrystals (Macrodantin*) 50 mg PO BID [facility] Last Admin: 01/15/18 21:09 Dose: 50 mg Omeprazole (Prilosec Cap*) 20 mg PO BID [facility] Last Admin: 01/15/18 21:07 Dose: 20 mg Ondansetron HCl (Zofran 40 Mg Vial*) 4 mg IV Q6H PRN PRN Reason: NAUSEA Last Admin: 01/14/18 08:53 Dose: 4 mg Oxycodone HCl (Roxycodone Tab*) 5 mg PO Q4H PRN PRN Reason: PAIN Last Admin: 01/15/18 05:53 Dose: 5 mg Pharmacy Profile Note (Fentanyl Patch Check Q Shift) 1 note N/A 0700,1900 [facility] Last Admin: 01/16/18 06:38 Dose: 1 note Phenazopyridine HCl (Pyridium Tab*) 200 mg PO TID [facility] Stop: 01/16/18 14:01 Last Admin: 01/15/18 21:08 Dose: 200 mg Potassium Chloride (Klor Con Er Tab*) 20 meq PO DAILY [facility] Last Admin: 01/15/18 10:40 Dose: 20 meq Prednisone (Deltasone Tab*) 10 mg PO DAILY [facility] Last Admin: 01/15/18 10:40 Dose: 10 mg Scopolamine (Transderm-Scop 1.5 Mg Patch*) 1 patch TRANSDERM Q72H [facility] Last Admin: 01/13/18 13:23 Dose: Not Given Sodium Chloride (Sodium Chloride 0.65% Nasal [place]*) 1 spray BOTH NARES Q4H PRN PRN Reason: CONGESTION Tizanidine HCl (Zanaflex Tab*) 2 mg PO Q12H PRN PRN Reason: muscle spasm Last Admin: 01/15/18 21:08 Dose: 2 mg Vital Signs - 8 hr 01/16/18 01/16/18 01/16/18 00:11 00:38 03:18 Temperature 97.7 F 97.6 F Pulse Rate 70 69 Respiratory 18 16 Rate Blood Pressure 80/39 85/40 126/56 (mmHg) O2 Sat by Pulse 98 100 Oximetry Oxygen Devices in Use Now: Nasal Cannula Appearance: Laying on her bed, appears comfortable and in NAD Eyes: No Scleral Icterus, PERRLA Ears/Nose/Mouth/Throat: Clear Oropharnyx, Mucous Membranes Moist Neck: - - [place] J collar secured, exam limited. Respiratory: Symmetrical Chest Expansion and Respiratory Effort, Clear to Auscultation Cardiovascular: NL Sounds; No Murmurs; No JVD, RRR Abdominal: NL Sounds; No Tenderness; No Distention Extremities: No Edema Skin: No Rash or Ulcers Neurological: Alert and Oriented x 3, NL Sensation Nutrition: Taking PO's Result Diagrams: 01/11/18 06:07 01/10/18 08:29 Additional Lab and Data: . Microbiology and Other Data: . Diagnostic Imaging: . EKG Data: . Assess/Plan/Problems-Billing Assessment: Ms. Parks is a 72 yo female with PMH significant for NSTEMI, GI bleed, chronic D CHF, RA, chronic pain, COPD, PAD, hx DVT, HTN, HLD, and s/p neck stabilization who presented to the ED with complaints of dizziness. She was just recently admitted to the hospital for hypotension suspected to be secondary to medications and they have since been decreased. Now awaiting Hospice services to consult. - Patient Problems (1) Dizziness Current Visit: Yes Status: Acute Comment: - Mostly resolved - Multifactoral: Pt hypotensive on admission; Suspect medication related, medications were decreased; Suspected component of adrenal insufficiency; Suspect there is a vestibular dysfunction, such as BPPV - Orthostatic vitals stable - Continue medications at decreased doses, Prednisone (at 10 mg dose), meclizine and scopolamine (2) Diastolic CHF, chronic Current Visit: Yes Status: Acute Comment: - No signs of acute exacerbation (No crackles or LE edema) - Continue daily weights and strict I+O's (3) Hypotension Current Visit: No Status: Acute Comment: - Intermittent, usually late evening readings, resolved with IVF boluses, pt remains asymptomatic - Fentanyl patch back to 25 mcg due to increasing RA pain (4) Anemia Current Visit: No Status: Chronic Comment: - Chronic, MIR. HH stable - Stool occult blood, negative (5) Anxiety and depression Current Visit: No Status: Chronic Comment: - Continue Bupropion (6) CAD (coronary artery disease) Current Visit: No Status: Chronic Comment: - Continue ASA (decreased to 81 in setting of recent GI bleed), lipitor, and metoprolol with hold parameters (7) COPD (chronic obstructive pulmonary disease) Current Visit: No Status: Chronic Comment: - No signs of acute exacerbation at this time (8) Chronic pain Current Visit: No Status: Chronic Comment: - Continue Fentanyl patch, gabapentin, and zanaflex at lower dose with oxycodone prn. (9) GERD (gastroesophageal reflux disease) Current Visit: No Status: Chronic Comment: - Continue Omeprazole (10) Hypothyroidism Current Visit: No Status: Chronic Comment: - TSH 2.33 on 01/04/18 - Continue Levothyroxine 75 mcg daily (home dose) (11) Rheumatoid arthritis Current Visit: No Status: Chronic Comment: - On low dose prednisone 5mg daily (now increased to 10 mg daily) - Continue pain control (12) Urinary tract infection Current Visit: Yes Status: Acute Comment: - C&S showed E.Coli sensitive to all, but quinolones. - Started Nitrofurantoin - Dysuria and urgency resolved - Pyrimidium was added with good relief (13) DVT prophylaxis Current Visit: Yes Status: Acute Comment: - SCDs to bilateral LE (14) DNR (do not resuscitate) Current Visit: Yes Status: Acute Comment: Status and Disposition: Inpatient. Discharge to home when medically stable. it audit manager and social service liaison are sending out Hospice referral request. Had a long discussion with Mrs. Parks and her daughter. They wish for the patient to go home on Hospice care. No interest for SNF placement. Await Hospice consult for home discharge likely by Wednesday.
[2018-01-16] MEDS: Omeprazole CAP* 20 MG PO SCH ×2 (09:21→21:25)
[2018-01-16] MEDS: Docusate CAP* 100 MG PO SCH ×2 (09:21→21:24)
[2018-01-16] MEDS: Metoprolol Tartrate TAB* 25 MG PO SCH ×2 (09:21→21:26)
[2018-01-16] MEDS: Aspirin 81 mg CHEW TAB* 81 MG TAB.CHEW PO SCH (09:21)
[2018-01-16] MEDS: Calcium/Vitamin D TAB 250/125* TAB PO SCH ×2 (09:21→21:24)
[2018-01-16] MEDS: predniSONE TAB* 10 MG PO SCH (09:21)
[2018-01-16] MEDS: Phenazopyridine TAB* 100 MG PO SCH ×2 (09:21→13:14)
[2018-01-16] MEDS: Folic Acid TAB* 1 MG PO SCH (09:21)
[2018-01-16] MEDS: Cholecalciferol TAB* 400 UNIT PO SCH ×2 (09:22→21:24)
[2018-01-16] MEDS: BuPROPion XL* 300 MG TAB.XL PO SCH (09:22)
[2018-01-16] MEDS: Gabapentin CAP(*) 100 MG PO SCH ×3 (09:22→21:25)
[2018-01-16] MEDS: Nitrofurantoin Macrocrystals* 50 MG CAP PO SCH ×2 (09:22→21:27)
[2018-01-16] MEDS: Ferrous Sulfate TAB* 325 MG PO SCH ×2 (09:22→21:24)
[2018-01-16] MEDS: Magnesium Oxide TAB* 400 MG PO SCH (09:22)
[2018-01-16] MEDS: Potassium Chlor TAB* 20 MEQ TAB.ER PO SCH (09:22)
[2018-01-16] MEDS: Scopolamine 1.5 mg* PATCH TRANSDERM SCH (13:15)
[2018-01-16] MEDS: Atorvastatin* 20 MG TAB PO SCH (17:34)
[2018-01-17] MEDS: Acetaminophen TAB* 325 MG PO SCH ×3 (02:11→13:29)
[2018-01-17] MEDS: Meclizine TAB* 12.5 MG PO SCH ×2 (05:57→13:28)
[2018-01-17] MEDS: Levothyroxine TAB* 50 MCG TAB PO SCH (05:57)
[2018-01-17] MEDS: fentaNYL Patch Check Q Shift 1 NOTE SCH (07:02)
[2018-01-17] MEDS: Nitrofurantoin Macrocrystals* 50 MG CAP PO SCH (08:24)
[2018-01-17] MEDS: Gabapentin CAP(*) 100 MG PO SCH ×2 (08:24→13:28)
[2018-01-17] MEDS: Metoprolol Tartrate TAB* 25 MG PO SCH (08:24)
[2018-01-17] MEDS: BuPROPion XL* 300 MG TAB.XL PO SCH (08:24)
[2018-01-17] MEDS: Omeprazole CAP* 20 MG PO SCH (08:24)
[2018-01-17] MEDS: Potassium Chlor TAB* 20 MEQ TAB.ER PO SCH (08:24)
[2018-01-17] MEDS: predniSONE TAB* 10 MG PO SCH (08:25)
[2018-01-17] MEDS: Docusate CAP* 100 MG PO SCH (09:29)
[2018-01-17] MEDS: Magnesium Oxide TAB* 400 MG PO SCH (09:29)
[2018-01-17] MEDS: Ferrous Sulfate TAB* 325 MG PO SCH (09:29)
[2018-01-17] MEDS: Calcium/Vitamin D TAB 250/125* TAB PO SCH (09:30)
[2018-01-17] MEDS: Cholecalciferol TAB* 400 UNIT PO SCH (09:30)
[2018-01-17] MEDS: Folic Acid TAB* 1 MG PO SCH (09:30)
[2018-01-17] MEDS: Aspirin 81 mg CHEW TAB* 81 MG TAB.CHEW PO SCH (09:30)
[2018-01-17 12:25] VITALS: BP 127/52
[2018-01-17] MEDS: fentaNYL PATCH 25 MCG/HR TRANSDERM SCH (13:25)
--- NOTE | 2018-01-18 06:49 | DS ---
CC: Dr. Fuller * DISCHARGE SUMMARY: DATE OF ADMISSION: 01/10/18 DATE OF DISCHARGE: 01/17/18 PRIMARY CARE PROVIDER: Dr. Fuller. KNIFE GRINDER: Dr. Sykes. ATTENDING FOR THIS ADMISSION: Dr. Zaid Flores. MY ATTENDING FOR TODAY: Dr. Zaid Flores.* (DICTATED BY GONZALO COOPER NP) HOSPITAL COURSE: This is a 72-year-old female patient, well known to our service, who has had 9 hospital admissions since January of 2017, for a refractory hypotension, dizziness and other comorbid conditions. The patient has had a very complicated past medical history including COPD, end-stage with oxygen dependence; peripheral arterial disease; stage II decubitus ulcers on the buttocks and neck; history of DVT; rheumatoid arthritis; hypothyroidism; congestive heart failure; anxiety and depression; hypertension; hyperlipidemia; history of MS earlier this year; congestive heart failure since her MS x2; cervical degenerative disk disease, status post ACDF with complicated surgical course. The patient has had multiple bouts of hypotension and dizziness at home , her last 4 admissions were for the same complaints. She has also had in between that bouts with shortness of breath, heart failure, and exacerbation of COPD. This most recent admission, she presented again with dizziness and hypotension, her systolic pressures were down in the 70s and 60s, she received gentle fluid hydration and stabilization. Her medications were titrated. Gabapentin, tizanidine, and metoprolol dosages were lowered. The patient seemed to bounce back a little bit better and her blood pressure improved. She also had chronic pain. On her last admission, her fentanyl patch dose was also decreased as it was thought that this was contributing to her dizziness and polypharmacy was not helping with her hypotensive episodes. This admission, she was also found to have urinary tract infection. She has been treated for E. coli UTI and has been placed on nitrofurantoin for treatment of her UTI that will be continued. The patient was stabilized over the last 24 to 48 hours. She states she is feeling better, her dizziness is resolved, her blood pressure has been stable. It has been discussed several times with the family regarding hospice as a possibility. At this admission, the patient is agreeable now to hospice and palliative services. The patient states that she dose not wish to come back to the hospital for the same issues and does wish to elect hospice as benefit when she is home. This has been arranged by Beverley from the case management team. [facility] will come up to the family's house on 01/19/18, this Wednesday, and admit her to home hospice services. PAST MEDICAL HISTORY: As above. DISCHARGE DIAGNOSES: 1. Dizziness. 2. Hypotension. 3. Stage II decubitus ulcers. 4. History of rheumatoid arthritis. 5. Chronic congestive heart failure. 6. Anxiety and depression. 7. End-stage chronic obstructive pulmonary disease, oxygen dependent. 8. History of coronary artery disease, stable. 9. History of deep venous thrombosis. MEDICATIONS FOR DISCHARGE: Include: 1. Prednisone 5 mg daily. 2. Oxycodone 5 mg as needed. 3. Forteo subcu daily. 4. Potassium chloride 20 mEq daily. 5. Omeprazole 20 mg daily. 6. Metoprolol tartrate 25 mg 2 times a day. 7. Mag-Ox 800 mg daily. 8. Levothyroxine 50 mcg daily. 9. Folic acid 1 mg daily. 10. Ferrous sulfate 325 daily. 11. Famotidine 20 mg 2 times a day. 12. Colace 100 two times a day. 13. Cholecalciferol 1 tab 2 times a day. 14. Vitamin D and calcium supplement 1 tab 2 times a day. 15. Bupropion XL 300 mg daily. 16. Atorvastatin 20 mg daily. 17. Aspirin 325 mg daily. 18. Tylenol as needed. 19. Tizanidine 2 mg 3 times a day as needed. 20. Fentanyl patch 25 mcg q.72 hours. 21. Gabapentin 100 mg 3 times a day. 22. Meclizine 12.5 mg q.6 hours as needed. 23. Macrodantin 50 mg 2 times a day for 5 more days. DISCHARGE FOLLOWUP: The patient will follow up with [facility] services this Wednesday. She will follow up with Dr. Fuller, her primary care physician, over the next 1 to 2 weeks or as needed. DISPOSITION: To home with hospice care. DIET: Heart healthy. ACTIVITY: As tolerated with a [place] J collar in place at all times. Again, the patient will be following up with hospice, so she will not need [facility] appointment as she did on her last admission. DISCHARGE COURSE: The patient was discharged in stable condition. All questions were answered. Case Management reached out to the daughter, who is the patient's power of tax attorney and health care proxy, who is in agreement with the plan. She has been scheduled for transportation at 2 p.m. today via ambulance back to her home. Her discharge planning services also include in-home aides, which are available as well as family care. Again, this has been confirmed with the daughter through Case Management. GONZALO COOPER, NEIL [id number]/CPS #: [id number] [facility]
== END 2018-01-17 16:00 | disposition home health service (06) | DRG 312 ==
LOC: ED 08:10 → MED 11:41
PROVIDERS: ADMIT Internal Medicine; ATTEND Internal Medicine
DX: I95.2 Hypotension due to drugs (principal); N39.0 Urinary tract infection, site not specified; I50.32 Chronic diastolic (congestive) heart failure; T42.6X5A Adverse effect of other antiepileptic and sedative-hypnotic drugs, initial encounter; T40.4X5A Adverse effect of other synthetic narcotics, initial encounter; T44.7X5A Adverse effect of beta-adrenoreceptor antagonists, initial encounter; R42 Dizziness and giddiness; J44.9 Chronic obstructive pulmonary disease, unspecified; I73.9 Peripheral vascular disease, unspecified; L89.322 Pressure ulcer of left buttock, stage 2; L89.312 Pressure ulcer of right buttock, stage 2; L89.892 Pressure ulcer of other site, stage 2; Z66 Do not resuscitate; M06.9 Rheumatoid arthritis, unspecified; E03.9 Hypothyroidism, unspecified; T42.8X5A Adverse effect of antiparkinsonism drugs and other central muscle-tone depressants, initial encounter; F41.9 Anxiety disorder, unspecified; F32.9 Major depressive disorder, single episode, unspecified; E78.5 Hyperlipidemia, unspecified; M50.30 Other cervical disc degeneration, unspecified cervical region; I25.10 Atherosclerotic heart disease of native coronary artery without angina pectoris; G89.29 Other chronic pain; B96.20 Unspecified Escherichia coli [E. coli] as the cause of diseases classified elsewhere; I11.0 Hypertensive heart disease with heart failure; D50.9 Iron deficiency anemia, unspecified; K21.9 Gastro-esophageal reflux disease without esophagitis; G43.909 Migraine, unspecified, not intractable, without status migrainosus; M19.90 Unspecified osteoarthritis, unspecified site; M79.7 Fibromyalgia; M81.0 Age-related osteoporosis without current pathological fracture; Z99.81 Dependence on supplemental oxygen; Z86.718 Personal history of other venous thrombosis and embolism; I25.2 Old myocardial infarction; Z79.82 Long term (current) use of aspirin; Z88.1 Allergy status to other antibiotic agents; Z91.040 Latex allergy status; Z80.2 Family history of malignant neoplasm of other respiratory and intrathoracic organs; Z87.891 Personal history of nicotine dependence; Z95.5 Presence of coronary angioplasty implant and graft; Z86.74 Personal history of sudden cardiac arrest; Z90.49 Acquired absence of other specified parts of digestive tract; Z90.710 Acquired absence of both cervix and uterus; Z86.14 Personal history of Methicillin resistant Staphylococcus aureus infection; Z82.3 Family history of stroke; Z82.49 Family history of ischemic heart disease and other diseases of the circulatory system; Y92.9 Unspecified place or not applicable
CPT/HCPCS: 36415; 71045; 80053; 81003; 81015; 82272; 83605; 83880; 84484; 85025; 85610; 85730; 87040; 87077; 87086; 87186; 93005; 99284; A9270-GY; G8978-GP-CL; G8979-GP-CJ; G8987-GO-CM; G8988-GO-CL; J7512